=== PATIENT | male | born 1980 | race Caucasian/White ===

== ENCOUNTER 2017-05-16 15:25 | Emergency (ER) | payer SELFPAY ==
[~2017-05-16] VITALS: Ht 188 cm; Wt 117.0 kg
[2017-05-16 15:39] VITALS: BP 125/92; PULSE 116; RESP 16; TEMP 98.2; O2SAT 95
--- NOTE | 2017-05-16 16:01 | PD ---
HPI Chief Complaint: Injury Time Seen by Provider: 15:54 Travel History International Travel<30 days: No Contact w/Intl Traveler<30days: No Traveled to known affect area: No History of Present Illness HPI This patient complains of pain in the left buttock. Yesterday he slipped on some wet tile and landed on his buttock. He has pain when sitting. Improved when standing. Severity of symptoms is mild to moderate. PFSH Social History Alcohol Use: Yes Tobacco Use: Yes Substance Use: No Allergies-Medications (Allergen,Severity, Reaction): Coded Allergies: No Known Allergies (Verified Allergy, Unknown, 05/16/17) Reported Meds & Prescriptions Reported Meds & Active Scripts Active No Active Prescriptions or Reported Medications Review of Systems General / Constitutional: No: Fever HENT: No: Headaches Cardiovascular: No: Chest Pain or Discomfort Physical Exam Narrative GASTROINTESTINAL: Abdomen soft, non-tender, nondistended. Positive bowel sounds. No hepato-splenomegaly, or palpable masses. No guarding. SKIN: Focused skin assessment reveals no rash or ulcers. Skin is warm and dry. Palpation shows no induration or nodules. Back: No midline tenderness. He has some minor tenderness of the left buttock but no open wound or bruising Data Data Last Documented VS Vital Signs Date Time Temp Pulse Resp B/P (MAP) Pulse Ox O2 Delivery O2 Flow Rate FiO2 05/16/17 15:39 98.2 116 16 125/92 (103) 95 Orders Orders Pelvis, Ap Only (Routine) (05/16/17 ) MDM Medical Decision Making Medical Screen Exam Complete: Yes Emergency Medical Condition: Yes Medical Record Reviewed: Yes Differential Diagnosis Contusion, pelvic fracture, ligament injury Narrative Course I have reviewed the patient's electronic medical record. I ordered a pelvis x-ray and patient agreed to this. However shortly after I ordered the test he told the nurse that he had to charges cell phone and talked to his mother and he left the department AGAINST MEDICAL ADVICE If he returns later we will reevaluate him Diagnosis Primary Impression: Contusion of buttock Qualified Codes: S30.0XXA - Contusion of lower back and pelvis, initial encounter Scripts No Active Prescriptions or Reported Meds Disposition: 07 AGAINST MEDICAL ADVICE Jorge Skaggs MD May 16, 2017 16:01
== END 2017-05-16 16:40 | disposition left against medical advice (07) ==
LOC: PHEFT 15:25
DX: S30.0XXA Contusion of lower back and pelvis, initial encounter (principal); W01.0XXA Fall on same level from slipping, tripping and stumbling without subsequent striking against object, initial encounter
CPT/HCPCS: 99281

== ENCOUNTER 2017-05-16 17:26 | Emergency (ER) | payer SELFPAY ==
[~2017-05-16] VITALS: Ht 188 cm; Wt 117.6 kg
[2017-05-16 17:30] VITALS: BP 161/79; PULSE 118; RESP 18; TEMP 98; O2SAT 97
--- NOTE | 2017-05-16 18:35 | RADRPT ---
EXAM DATE/TIME: 05/16/2017 18:14 [facility] COMPARISON: No previous studies available for comparison. INDICATIONS : Trauma, fall. MEDICAL HISTORY : None. SURGICAL HISTORY : None. ENCOUNTER: Initial ACUITY: 2 days PAIN SCORE: 5/10 LOCATION: Left buttock FINDINGS: A single frontal view of the pelvis demonstrates no evidence of fracture. The bony pelvic ring is in tact. Bony mineralization is normal. The soft tissues are intact. CONCLUSION: No acute disease. Lucio Gonzalez MD on May 16, 2017 at 18:33 Board Certified Radiologist. This report was verified electronically.
--- NOTE | 2017-05-16 18:46 | PD ---
HPI Chief Complaint: Injury Time Seen by Provider: 18:26 Travel History International Travel<30 days: No Contact w/Intl Traveler<30days: No Traveled to known affect area: No History of Present Illness HPI 37-year-old male presents to the emergency room for evaluation of left buttock pain and swelling after slip and fall last night. Patient slipped on wet tile floor and fell directly on his left buttock. No other injuries. States he had no pain at that time because of adrenaline but as adrenaline wore off, his pain increased. Pain is localized to the left buttocks and worse with any palpation. States he feels better when he is standing up. Denies loss of range of motion or paresthesias of the left lower extremity. He has not taken anything for his symptoms. [facility] Social History Alcohol Use: Yes Tobacco Use: Yes Substance Use: No Allergies-Medications (Allergen,Severity, Reaction): Coded Allergies: No Known Allergies (Verified Allergy, Unknown, 05/16/17) Reported Meds & Prescriptions Reported Meds & Active Scripts Active No Active Prescriptions or Reported Medications Review of Systems Except as stated in HPI: all other systems reviewed are Neg Physical Exam Narrative GENERAL: Well-nourished, well-developed male in no acute distress. Afebrile. Ambulatory. SKIN: Focused skin assessment warm/dry. No obvious ecchymosis. HEAD: Normocephalic. EYES: No scleral icterus. No injection or drainage. NECK: Supple, trachea midline. No JVD or lymphadenopathy. CARDIOVASCULAR: Regular rate and rhythm without murmurs, gallops, or rubs. RESPIRATORY: Breath sounds equal bilaterally. No accessory muscle use. MUSCULOSKELETAL: No cyanosis. Mild to moderate edema of the left buttock as compared to right. Data Data Last Documented VS Vital Signs Date Time Temp Pulse Resp B/P (MAP) Pulse Ox O2 Delivery O2 Flow Rate FiO2 05/16/17 17:30 98.0 118 18 161/79 (106) 97 Room Air Orders Orders Pelvis, Ap Only (Routine) (05/16/17 ) MDM Medical Decision Making Medical Screen Exam Complete: Yes Emergency Medical Condition: Yes Medical Record Reviewed: Yes Differential Diagnosis Contusion, soft tissue injury, fracture Narrative Course 37-year-old male presents to the emergency room for evaluation of left buttock pain and swelling after slip and fall last night. Patient slipped on wet tile floor and landed on his buttock. Denies any other injuries. Physical exam reveals moderate edema of the left buttock. X-ray of the pelvis is negative. Patient is ambulatory. He was discharged with orthopedic instructions and told to follow-up the primary care physician. He understands and agrees to plan. Diagnosis Primary Impression: Contusion, buttock Qualified Codes: S30.0XXA - Contusion of lower back and pelvis, initial encounter Referrals: Primary Care Physician Additional Instructions: Rest and drink plenty of fluids. Take ibuprofen with food as directed, as needed for pain. Apply ice to the affected area for 20 minutes at a time, as needed for pain and swelling. Follow-up with a primary care physician. Return to the emergency room for worsening symptoms. Scripts No Active Prescriptions or Reported Meds Disposition: 01 DISCHARGE HOME Condition: Stable Ashley Guerrier May 16, 2017 18:46
[2017-05-16 18:58] VITALS: PULSE 108; RESP 20
== END 2017-05-16 19:05 | disposition home or self-care (01) ==
LOC: PHED 17:26 → PHEFT 19:05
DX: S30.0XXA Contusion of lower back and pelvis, initial encounter (principal); W01.0XXA Fall on same level from slipping, tripping and stumbling without subsequent striking against object, initial encounter
CPT/HCPCS: 72170; 99283

== ENCOUNTER 2017-11-11 15:23 | Inpatient (IN) | payer SELFPAY ==
[~2017-11-11] VITALS: Ht 188 cm; Wt 109.4 kg
[2017-11-11 15:29] VITALS: BP 150/86; PULSE 107; RESP 18; TEMP 98.1; O2SAT 98
[2017-11-11] MEDS ORDERED: SODIUM CHLORIDE 0.9% FLUSH 10 ML FLUSH IV FLUSH PRN ×2 (16:00→19:00)
[2017-11-11 16:04] VITALS: O2SAT 96
[2017-11-11 16:19] LABS: AUTOMATED NEUTROPHIL # 12.9 TH/MM3 (1.8-7.7); BASOPHIL # 0.3 TH/MM3 (0-0.2); BASOPHIL % 1.7 % (0.0-2.0); EOSINOPHIL # 0.3 TH/MM3 (0-0.4); EOSINOPHIL % 1.7 % (0.0-4.0); HEMATOCRIT 35.2 % (39.0-51.0); HEMOGLOBIN 12.2 GM/DL (13.0-17.0); LYMPHOCYTE # 2.1 TH/MM3 (1.0-4.8); MEAN CELL VOLUME 99.7 FL (80.0-100.0); MEAN CORPUSCULAR HEMOGLOBIN 34.6 PG (27.0-34.0); MEAN CORPUSCULAR HGB CONC 34.7 % (32.0-36.0); MEAN PLATELET VOLUME 9.4 FL (7.0-11.0); MONO % 4.3 % (0.0-8.0); MONOCYTE # 0.7 TH/MM3 (0-0.9); NEUT % 79.3 % (16.0-70.0); PLATELET COUNT 240 TH/MM3 (150-450); RED BLOOD COUNT 3.53 MIL/MM3 (4.50-5.90); RED CELL DISTRIBUTION WIDTH 15.3 % (11.6-17.2); WHITE BLOOD COUNT 16.3 TH/MM3 (4.0-11.0)
[2017-11-11 16:25] LABS: GLOMERULAR FILTRATION RATE 189 ML/MIN (>89)
--- NOTE | 2017-11-11 16:25 | PD ---
HPI Chief Complaint: Jaundice Time Seen by Provider: 15:41 Travel History International Travel<30 days: No Contact w/Intl Traveler<30days: No Traveled to known affect area: No History of Present Illness HPI 37-year-old male arrives with jaundice. He was noticed by his friend to have had jaundice. This was first observed at least a few days ago. The patient reports remote history of IV drug abuse. He reports girlfriend has liver cancer and is really very jaundiced. He has no abdominal pain nausea vomiting fever or chills. He reports some weight loss around the waist in the legs and it feels as those pains are looser than normal. He also feels as though his abdomen is slightly distended although overall he has lost weight. He does report generalized pruritus. Pt reports drinking alcohol, aprox 5 times a week, at times 6 or more drinks. PFSH Past Medical History Medical History: Denies Significant Hx Tetanus Vaccination: > 5 Years Influenza Vaccination: No Past Surgical History Surgical History: No Previous Surgery Social History Alcohol Use: Yes (~3 BEERS DAILY) Tobacco Use: Yes (09/29 PPD) Substance Use: No Allergies-Medications (Allergen,Severity, Reaction): Coded Allergies: No Known Allergies (Verified , 11/11/17) Reported Meds & Prescriptions Reported Meds & Active Scripts Active No Active Prescriptions or Reported Medications Review of Systems Except as stated in HPI: all other systems reviewed are Neg General / Constitutional: No: Fever Physical Exam Narrative GENERAL: 37 yo M, WNWD, NAD, AOX3 Vital Signs Date Time Temp Pulse Resp B/P (MAP) Pulse Ox O2 Delivery O2 Flow Rate FiO2 11/11/17 16:04 96 11/11/17 15:36 Room Air 11/11/17 15:29 98.1 107 18 150/86 (107) 98 SKIN: There is generalized jaundice. There multiple angina mono of the anterior and posterior trunk. HEAD: Atraumatic. Normocephalic. EYES: Pupils equal and round. Sclera icterus is present. ENT: No nasal bleeding or discharge. Mucous membranes pink and moist. NECK: Trachea midline. No JVD. CARDIOVASCULAR: Regular rate and rhythm. RESPIRATORY: No accessory muscle use. Clear to auscultation. Breath sounds equal bilaterally. GASTROINTESTINAL: Abdomen soft. There is no focus tenderness. There is no caput medussa. MUSCULOSKELETAL: Extremities without clubbing, cyanosis, or edema. No obvious deformities. NEUROLOGICAL: Awake and alert. No obvious cranial nerve deficits. Motor grossly within normal limits. Five out of 5 muscle strength in the arms and legs. Normal speech. PSYCHIATRIC: Appropriate mood and affect; insight and judgment normal. Data Data Last Documented VS Vital Signs Date Time Temp Pulse Resp B/P (MAP) Pulse Ox O2 Delivery O2 Flow Rate FiO2 11/11/17 18:05 84 19 111/69 (83) 97 Room Air 11/11/17 15:29 98.1 VS reviewed Orders Orders Complete Blood Count With Diff (11/11/17 15:56) Comprehensive Metabolic Panel (11/11/17 15:56) Lipase (11/11/17 15:56) Ct Abd/Pel W Iv Contrast(Rout) (11/11/17 15:56) Iv Access Insert/Monitor (11/11/17 15:56) Ecg Monitoring (11/11/17 15:56) Oximetry (11/11/17 15:56) Sodium Chloride 0.9% Flush (Ns Flush) (11/11/17 16:00) Iohexol 350 Inj (Omnipaque 350 Inj) (11/11/17 17:26) Admit Order (Ed Use Only) (11/11/17 ) Vital Signs (Adult) Q4H (11/11/17 18:21) Diet Npo (11/11/17 Dinner) Activity Bed Rest (11/11/17 18:21) Notify Dr: Other (11/11/17 18:21) Labs Laboratory Tests Test 11/11/17 16:00 White Blood Count 16.3 TH/MM3 Red Blood Count 3.53 MIL/MM3 Hemoglobin 12.2 GM/DL Hematocrit 35.2 % Mean Corpuscular Volume 99.7 FL Mean Corpuscular Hemoglobin 34.6 PG Mean Corpuscular Hemoglobin Concent 34.7 % Red Cell Distribution Width 15.3 % Platelet Count 240 TH/MM3 Mean Platelet Volume 9.4 FL Neutrophils (%) (Auto) 79.3 % Lymphocytes (%) (Auto) 13.0 % Monocytes (%) (Auto) 4.3 % Eosinophils (%) (Auto) 1.7 % Basophils (%) (Auto) 1.7 % Neutrophils # (Auto) 12.9 TH/MM3 Lymphocytes # (Auto) 2.1 TH/MM3 Monocytes # (Auto) 0.7 TH/MM3 Eosinophils # (Auto) 0.3 TH/MM3 Basophils # (Auto) 0.3 TH/MM3 CBC Comment AUTO DIFF Differential Comment AUTO DIFF CONFIRMED Platelet Estimate NORMAL Platelet Morphology Comment ENLARGED Target Cells 2+ Blood Urea Nitrogen 4 MG/DL Creatinine 0.49 MG/DL Random Glucose 125 MG/DL Total Protein 8.1 GM/DL Albumin 2.3 GM/DL Calcium Level 8.2 MG/DL Alkaline Phosphatase 238 U/L Aspartate Amino Transf (AST/SGOT) 84 U/L Alanine Aminotransferase (ALT/SGPT) 35 U/L Total Bilirubin 19.8 MG/DL Sodium Level 132 MEQ/L Potassium Level 2.9 MEQ/L Chloride Level 100 MEQ/L Carbon Dioxide Level 23.9 MEQ/L Anion Gap 8 MEQ/L Estimat Glomerular Filtration Rate 189 ML/MIN Lipase 441 U/L MDM Medical Decision Making Medical Screen Exam Complete: Yes Emergency Medical Condition: Yes Medical Record Reviewed: Yes Differential Diagnosis Constipation, Gastritis, Acute Cholecystitis, Biliary Colic, Pancreatitis, DUGAN , Hepatitis, Bowel Obstruction, Cystitis, Mesenteric Ischemia, AAA, Appendicitis , Renal Stone/Hydronephrosis, GERD, perforated viscous Narrative Course CBC & BMP Diagram 11/11/17 16:00 Total Protein 8.1, Albumin 2.3 L, Calcium Level 8.2 L, Alkaline Phosphatase 238 H, Aspartate Amino Transf (AST/SGOT) 84 H, Alanine Aminotransferase (ALT/SGPT) 35, Total Bilirubin 19.8 H Last Impressions Abdomen/Pelvis CT 11/11/17 1556 Signed Impressions: Service Date/Time: Saturday, November 11, 2017 17:19 - CONCLUSION: 1. Very abnormal appearance of the liver. The organ is diffusely enlarged and somewhat heterogeneous with what appears to be multiple mass lesions. The largest lesion is identified medially in the right hepatic lobe measuring 4.8 cm in diameter. MRI with and without contrast could be performed for further characterization. 2. In addition, there are findings of portal hypertension with a spontaneous portosystemic shunt from the splenic vein to the IVC. In combination with multiple prominent lymph nodes juxtaposed between the iron hepatis and pancreas, findings are concerning for hepatocellular carcinoma with metastasis. 3. The gallbladder lumen is decompressed the gallbladder wall is markedly thickened. Again, nonspecific and can be seen in severe hepatic failure. 4. Mild ascites. Reginaldo Wilson MD Case discussed with Dr. Hunter who will admit the patient. The patient will be admitted for further diagnostic evaluation of hyperbilirubinemia and liver masses. Diagnosis Primary Impression: Liver masses Additional Impression: Hyperbilirubinemia Admitting Information Admitting Physician Requests: Admit Scripts No Active Prescriptions or Reported Meds Julian Rodríguez MD Nov 11, 2017 16:25
[2017-11-11 16:29] LABS: ALBUMIN 2.3 GM/DL (3.4-5.0); ALKALINE PHOSPHATASE 238 U/L (45-117); ALT (GPT) 35 U/L (12-78); AST (GOT) 84 U/L (15-37); BICARBONATE 23.9 MEQ/L (21.0-32.0); BLOOD UREA NITROGEN 4 MG/DL (7-18); CALCIUM 8.2 MG/DL (8.5-10.1); CHLORIDE 100 MEQ/L (98-107); CREATININE 0.49 MG/DL (0.60-1.30); GLUCOSE,RANDOM 125 MG/DL (74-106); SODIUM (NA) 132 MEQ/L (136-145); TOTAL BILIRUBIN ADULT 19.8 MG/DL (0.2-1.0); TOTAL PROTEIN 8.1 GM/DL (6.4-8.2)
[2017-11-11 17:01] LABS: TARGET CELLS 2+ (NORMAL)
[2017-11-11] MEDS ORDERED: IOHEXOL 350 MG/ML 10 ML VIAL (for RAD DIAG) IVCONTRAST ONE (17:26)
[2017-11-11 17:32] VITALS: BP 131/75; PULSE 88; RESP 16; O2SAT 98
--- NOTE | 2017-11-11 18:04 | RADRPT ---
EXAM DATE/TIME: 11/11/2017 17:19 [facility] COMPARISON: No previous studies available for comparison. INDICATIONS : Jaundice. IV CONTRAST: 85 cc Omnipaque 350 (iohexol) IV ORAL CONTRAST: No oral contrast ingested. RADIATION DOSE: 19.97 CTDIvol (mGy) MEDICAL HISTORY : None SURGICAL HISTORY : None. ENCOUNTER: Initial ACUITY: 2 weeks PAIN SCALE: 0/10 LOCATION: Abdomen. TECHNIQUE: Volumetric scanning of the abdomen and pelvis was performed. Using automated exposure control and ad justment of the mA and/or kV according to patient size, radiation dose was kept as low as reasonably achievable to obtain optimal diagnostic quality images. DICOM format image data is available electro nically for review and comparison. FINDINGS: LOWER LUNGS: The visualized lower lungs are clear. LIVER: Markedly abnormal appearance of the liver. The organ is enlarged and heterogeneous. There are multipl e faint mass lesions identified within the liver parenchyma, the largest is seen medially in the righ t hepatic lobe measuring 4.8 cm in diameter. Additional 4 cm lesion in the quadrate lobe. CT findings of portal hypertension. Portal vein is patent there are varicosities emanating from the splenic vein and communicating with the IVC consistent with a spontaneous portosystemic shunt. Gallbladder wall i s markedly thickened. The gallbladder is decompressed, however. SPLEEN: Normal size without lesion. PANCREAS: Within normal limits. KIDNEYS: Normal in size and shape. There is no mass, stone or hydronephrosis. ADRENAL GLANDS: Within normal limits. VASCULAR: There is no aortic aneurysm. BOWEL/MESENTERY: Stranding in the mesentery is nonspecific and probably represents edema. There are borderline promine nt lymph nodes in the iron hepatis. Ascites most prominent around the hepatic convexity the tracts t he right paracolic gutter down into the pelvis. ABDOMINAL WALL: Within normal limits. RETROPERITONEUM: There is no lymphadenopathy. BLADDER: No wall thickening or mass. REPRODUCTIVE: Within normal limits. INGUINAL: There is no lymphadenopathy or hernia. MUSCULOSKELETAL: Within normal limits for patient age. CONCLUSION: 1. Very abnormal appearance of the liver. The organ is diffusely enlarged and somewhat heterogeneous with what appears to be multiple mass lesions. The largest lesion is identified medially in the right hepatic lobe measuring 4.8 cm in diameter. MRI with and without contrast could be performed for furt her characterization. 2. In addition, there are findings of portal hypertension with a spontaneous portosystemic shunt from the splenic vein to the IVC. In combination with multiple prominent lymph nodes juxtaposed between t he iron hepatis and pancreas, findings are concerning for hepatocellular carcinoma with metastasis. 3. The gallbladder lumen is decompressed the gallbladder wall is markedly thickened. Again, nonspecif ic and can be seen in severe hepatic failure. 4. Mild ascites. Reginaldo Wilson MD on November 11, 2017 at 17:43 Board Certified Radiologist. This report was verified electronically.
[2017-11-11 18:05] VITALS: BP 111/69; PULSE 84; RESP 19; O2SAT 97
[2017-11-11] MEDS ORDERED: NALOXONE HCL 0.4 MG/ML AMP IV PUSH PRN (19:00)
[2017-11-11] MEDS: SODIUM CHLORIDE 0.9% FLUSH 10 ML FLUSH IV FLUSH SCH (21:14)
[2017-11-11 22:00] VITALS: BP 128/67; PULSE 88; RESP 20; TEMP 98.9; O2SAT 99
[2017-11-12] VITALS: BP 136/78; PULSE 99; RESP 20; TEMP 97.7; O2SAT 97
[2017-11-12 07:13] LABS: AUTOMATED NEUTROPHIL # 10.1 TH/MM3 (1.8-7.7); BASOPHIL # 0.3 TH/MM3 (0-0.2); BASOPHIL % 2.2 % (0.0-2.0); EOSINOPHIL # 0.4 TH/MM3 (0-0.4); EOSINOPHIL % 2.6 % (0.0-4.0); HEMATOCRIT 35.2 % (39.0-51.0); HEMOGLOBIN 12.2 GM/DL (13.0-17.0); LYMPH % 19.6 % (9.0-44.0); LYMPHOCYTE # 2.9 TH/MM3 (1.0-4.8); MEAN CELL VOLUME 100.8 FL (80.0-100.0); MEAN CORPUSCULAR HGB CONC 34.7 % (32.0-36.0); MEAN PLATELET VOLUME 9.7 FL (7.0-11.0); MONO % 7.1 % (0.0-8.0); NEUT % 68.5 % (16.0-70.0); PLATELET COUNT 210 TH/MM3 (150-450); RED BLOOD COUNT 3.49 MIL/MM3 (4.50-5.90); RED CELL DISTRIBUTION WIDTH 15.4 % (11.6-17.2); WHITE BLOOD COUNT 14.7 TH/MM3 (4.0-11.0)
[2017-11-12 07:18] LABS: CHLORIDE 100 MEQ/L (98-107); SODIUM (NA) 133 MEQ/L (136-145)
[2017-11-12 07:25] LABS: CALCIUM 8.1 MG/DL (8.5-10.1)
[2017-11-12 07:26] LABS: ALBUMIN 2.2 GM/DL (3.4-5.0); BICARBONATE 25.6 MEQ/L (21.0-32.0)
[2017-11-12 07:27] LABS: GLUCOSE,RANDOM 95 MG/DL (74-106)
[2017-11-12 07:29] LABS: ALT (GPT) 32 U/L (12-78); AST (GOT) 79 U/L (15-37); CREATININE 0.51 MG/DL (0.60-1.30); GLOMERULAR FILTRATION RATE 181 ML/MIN (>89)
[2017-11-12 07:31] LABS: TOTAL PROTEIN 7.5 GM/DL (6.4-8.2)
[2017-11-12 07:32] LABS: ALKALINE PHOSPHATASE 210 U/L (45-117)
[2017-11-12 07:51] LABS: BLOOD UREA NITROGEN 4 MG/DL (7-18)
[2017-11-12 08:17] LABS: ROULEAUX PRESENT (NORMAL)
[2017-11-12] MEDS: SODIUM CHLORIDE 0.9% FLUSH 10 ML FLUSH IV FLUSH SCH ×2 (09:20→19:53)
[2017-11-12 09:33] VITALS: BP 102/55; PULSE 86; RESP 16; TEMP 97.5; O2SAT 97
[2017-11-12] MEDS ORDERED: GADODIAMIDE PF 287 MG/ML 20 ML VIAL (for RAD MRI) IVCONTRAST ONE (14:29)
--- NOTE | 2017-11-12 14:44 | HHI.HP ---
History of Present Illness Service [facility] Primary Care Physician Jose Hunter, DO Admission Diagnosis Liver Masses; Hyperbilirubinemia Diagnoses: History of Present Illness 37-year-old male arrives with jaundice. He was noticed by his friend to have had jaundice. This was first observed at least a few days ago. The patient reports remote history of IV drug abuse. He reports girlfriend has liver cancer and is really very jaundiced. He has no abdominal pain nausea vomiting fever or chills. He reports some weight loss around the waist in the legs and it feels as those pains are looser than normal. He also feels as though his abdomen is slightly distended although overall he has lost weight. He does report generalized pruritus. Pt reports drinking alcohol, aprox 5 times a week, at times 6 or more drinks. Review of Systems Constitutional: COMPLAINS OF: Weight loss Endocrine: DENIES: Heat/cold intolerance, Polydipsia, Polyuria, Polyphagia Eyes: DENIES: Blurred vision, Diplopia, Eye inflammation, Eye pain, Vision loss , Photosensitivity, Double Vision Ears, nose, mouth, throat: DENIES: Tinnitus, Hearing loss, Vertigo, Nasal discharge, Oral lesions, Throat pain, Hoarseness, Ear Pain, Running Nose, Epistaxis, Sinus Pain, Toothache, Odynophagia Respiratory: DENIES: Apneas, Cough, Snoring, Wheezing, Hemoptysis, Sputum production, Shortness of breath Cardiovascular: DENIES: Chest pain, Palpitations, Syncope, Dyspnea on Exertion , PND, Lower Extremity Edema, Orthopnea, Claudication Gastrointestinal: COMPLAINS OF: Abdominal pain, Anorexia Genitourinary: DENIES: Sexual dysfunction, Urinary frequency, Urinary incontinence, Urgency, Hematuria, Dysuria, Nocturia, Penile Discharge, Testicular Pain, Testicular Swelling Musculoskeletal: COMPLAINS OF: Muscle aches Integumentary: COMPLAINS OF: Abnormal pigmentation, Pruritus Hematologic/lymphatic: DENIES: Bruising, Lymphadenopathy Immunologic/allergic: COMPLAINS OF: Urticaria Neurologic: COMPLAINS OF: Tremor Psychiatric: DENIES: Anxiety, Confusion, Mood changes, Depression, Hallucinations, Agitation, Suicidal Ideation, Homicidal Ideation, Delusions Past Family Social History Allergies: Coded Allergies: No Known Allergies (Verified , 11/11/17) Past Medical History Denies other medical problems Past Surgical History Denies surgical procedures Reported Medications Current Medications Medications (Trade) Dose Ordered Sig/Virgil Route Start Time Stop Time Status Last Admin (NS Flush) 2 ml UNSCH PRN IV FLUSH 11/11/17 19:00 (NS Flush) 2 ml BID IV FLUSH 11/11/17 21:00 11/12/17 09:20 (Narcan Inj) 0.4 mg UNSCH PRN IV PUSH 11/11/17 19:00 Family History Denies FH medical problems stating parents are A&W Social History Active drinker 5-6 per day and smokes 1/4 PPD cigs. Resides with friend. Physical Exam Vital Signs Vital Signs Date Time Temp Pulse Resp B/P (MAP) Pulse Ox O2 Delivery O2 Flow Rate FiO2 11/12/17 09:33 97.5 86 16 102/55 (71) 97 11/12/17 00:00 97.7 99 20 136/78 (97) 97 11/11/17 22:00 98.9 88 20 128/67 (87) 99 11/11/17 21:35 11/11/17 18:51 Room Air 11/11/17 18:05 84 19 111/69 (83) 97 Room Air 11/11/17 17:32 88 16 131/75 (93) 98 Room Air 11/11/17 16:04 96 11/11/17 15:36 Room Air 11/11/17 15:29 98.1 107 18 150/86 (107) 98 Physical Exam GENERAL: This is a well-nourished, well-developed patient, in no apparent distress. SKIN: Jaundiced. Cool and dry. HEAD: Atraumatic. Normocephalic. No temporal or scalp tenderness. EYES: Icteric. Pupils equal round and reactive. Extraocular motions intact. No injection or drainage. ENT: Nose without bleeding, purulent drainage or septal hematoma. Throat without erythema, tonsillar hypertrophy or exudate. Uvula midline. Airway patent. NECK: Trachea midline. No JVD or lymphadenopathy. Supple, nontender, no meningeal signs. CARDIOVASCULAR: Regular rate and rhythm without murmurs, gallops, or rubs. RESPIRATORY: Clear to auscultation. Breath sounds equal bilaterally. No wheezes , rales, or rhonchi. GASTROINTESTINAL: Abdomen soft, non-tender, nondistended. Positive hepatomegaly. MUSCULOSKELETAL: Extremities without clubbing, cyanosis, or edema. No joint tenderness, effusion, or edema noted. No calf tenderness. Negative Homans sign bilaterally. NEUROLOGICAL: Awake and alert. Cranial nerves II through XII intact. Motor and sensory grossly within normal limits. Five out of 5 muscle strength in all muscle groups. Normal speech. Laboratory Laboratory Tests Test 11/11/17 16:00 11/12/17 06:15 11/12/17 11:00 White Blood Count 16.3 14.7 Red Blood Count 3.53 3.49 Hemoglobin 12.2 12.2 Hematocrit 35.2 35.2 Mean Corpuscular Volume 99.7 100.8 Mean Corpuscular Hemoglobin 34.6 35.0 Mean Corpuscular Hemoglobin Concent 34.7 34.7 Red Cell Distribution Width 15.3 15.4 Platelet Count 240 210 Mean Platelet Volume 9.4 9.7 Neutrophils (%) (Auto) 79.3 68.5 Lymphocytes (%) (Auto) 13.0 19.6 Monocytes (%) (Auto) 4.3 7.1 Eosinophils (%) (Auto) 1.7 2.6 Basophils (%) (Auto) 1.7 2.2 Neutrophils # (Auto) 12.9 10.1 Lymphocytes # (Auto) 2.1 2.9 Monocytes # (Auto) 0.7 1.0 Eosinophils # (Auto) 0.3 0.4 Basophils # (Auto) 0.3 0.3 CBC Comment AUTO DIFF AUTO DIFF Differential Comment AUTO DIFF CONFIRMED AUTO DIFF CONFIRMED Platelet Estimate NORMAL NORMAL Platelet Morphology Comment ENLARGED NORMAL Target Cells 2+ Blood Urea Nitrogen 4 4 Creatinine 0.49 0.51 Random Glucose 125 95 Total Protein 8.1 7.5 Albumin 2.3 2.2 Calcium Level 8.2 8.1 Alkaline Phosphatase 238 210 Aspartate Amino Transf (AST/SGOT) 84 79 Alanine Aminotransferase (ALT/SGPT) 35 32 Total Bilirubin 19.8 19.0 Sodium Level 132 133 Potassium Level 2.9 3.0 Chloride Level 100 100 Carbon Dioxide Level 23.9 25.6 Anion Gap 8 7 Estimat Glomerular Filtration Rate 189 181 Lipase 441 Basophilic Stippling FAINT Rouleau PRESENT Red Cell Morphology Comment NORMAL Result Diagram: 11/12/17 0615 11/12/17 0615 Imaging Last Impressions Abdomen/Pelvis CT 11/11/17 4239 Signed Impressions: Service Date/Time: Saturday, November 11, 2017 17:19 - CONCLUSION: 1. Very abnormal appearance of the liver. The organ is diffusely enlarged and somewhat heterogeneous with what appears to be multiple mass lesions. The largest lesion is identified medially in the right hepatic lobe measuring 4.8 cm in diameter. MRI with and without contrast could be performed for further characterization. 2. In addition, there are findings of portal hypertension with a spontaneous portosystemic shunt from the splenic vein to the IVC. In combination with multiple prominent lymph nodes juxtaposed between the iron hepatis and pancreas, findings are concerning for hepatocellular carcinoma with metastasis. 3. The gallbladder lumen is decompressed the gallbladder wall is markedly thickened. Again, nonspecific and can be seen in severe hepatic failure. 4. Mild ascites. Reginaldo Wilson MD Course Adm with jaundice. GI W/U in progress. Caprini VTE Risk Assessment Caprini VTE Risk Assessment: No/Low Risk (score <= 1) Caprini Risk Assessment Model Point Value = 1 Point Value = 2 Point Value = 3 Point Value = 5 Age 41-60 Minor surgery BMI > 25 kg/m2 Swollen legs Varicose veins or History of unexplained or recurrent spontaneous Oral contraceptives or hormone replacement Sepsis (< 1 month) Serious lung disease, including pneumonia (< 1 month) Abnormal pulmonary function Acute myocardial infarction Congestive heart failure (< 1 month) History of inflammatory bowel disease Medical patient at bed rest Age 61-74 Arthroscopic surgery Major open surgery (> 45 min) Laparoscopic surgery (> 45 min) Malignancy Confined to bed (> 72 hours) Immobilizing plaster cast Central venous access Age >= 75 History of VTE Family history of VTE Factor V Leiden Prothrombin [id number] Lupus anticoagulant Anticardiolipin antibodies Elevated serum homocysteine Heparin-induced thrombocytopenia Other congenital or acquired thrombophilia Stroke (< 1 month) Elective arthroplasty Hip, pelvis, or leg fracture Acute spinal cord injury (< 1 month) Prophylaxis Regimen Total Risk Factor Score Risk Level Prophylaxis Regimen 0-1 Low Early ambulation 2 Moderate Order ONE of the following: *Sequential Compression Device (SCD) *Heparin 5000 units SQ BID 3-4 Higher Order ONE of the following medications: *Heparin 5000 units SQ TID *Enoxaparin/Lovenox 40 mg SQ daily (WT < 150 kg, CrCl > 30 mL/min) *Enoxaparin/Lovenox 30 mg SQ daily (WT < 150 kg, CrCl > 10-29 mL/min) *Enoxaparin/Lovenox 30 mg SQ BID (WT < 150 kg, CrCl > 30 mL/min) AND/OR *Sequential Compression Device (SCD) 5 or more Highest Order ONE of the following medications: *Heparin 5000 units SQ TID (Preferred with Epidurals) *Enoxaparin/Lovenox 40 mg SQ daily (WT < 150 kg, CrCl > 30 mL/min) *Enoxaparin/Lovenox 30 mg SQ daily (WT < 150 kg, CrCl > 10-29 mL/min) *Enoxaparin/Lovenox 30 mg SQ BID (WT < 150 kg, CrCl > 30 mL/min) AND *Sequential Compression Device (SCD) Assessment and Plan Problem List: (1) Portal hypertension ICD Codes: K76.6 - Portal hypertension Status: Acute Plan: F/U GI recommendations and eval (2) Portosystemic shunt, spontaneous ICD Codes: I99.8 - Other disorder of circulatory system Status: Acute Plan: F/U GI W/U (3) Hyperbilirubinemia ICD Codes: E80.6 - Other disorders of bilirubin metabolism Status: Acute Plan: GI W/U in progress (4) Liver masses ICD Codes: R16.0 - Hepatomegaly, not elsewhere classified Status: Acute Plan: F/U GI W/U Discussed Condition With Patient Discharge Planning Home when cleared by Colt Gaxiola Nov 12, 2017 14:44
[2017-11-12 15:11] LABS: IRON (FE) 74 MCG/DL (65-175)
[2017-11-12 15:14] LABS: FERRITIN 708 NG/ML (26-388)
--- NOTE | 2017-11-12 15:16 | MB ---
cc: SUDEEP NOGUEIRA M.D. DATE OF CONSULTATION: 11/12/2017. REASON FOR CONSULTATION: Elevation of liver enzymes. Abnormal CT. REFERRING PHYSICIAN: Dr. Hunter. HISTORY OF PRESENT ILLNESS: Mr. العلي is a 37-year-old gentleman who to the emergency room for evaluation of increased jaundice. The patient stated he observed this a few days ago and it got progressively worse. This prompted his referral to the emergency room. The patient reports some weight loss. He stated that he lost approximately 90 pounds for the last years and he intended to do so. He is a heavy drinker. There is no history of hepatitis A, B or C. He denies any fever or chills, melena, hematemesis, hematochezia. He denies any dysphagia or odynophagia. He denies any family history of liver issues. He states he has never had blood work so he is unaware of any abnormalities of liver enzymes in the past. He does have a chronic rash on his legs. He states he had seen a school boat driver for that and was given a cream which sounds like a steroid cream with improvement but he recently stopped taking it. He states that the rash is mostly because he is scratching his legs mostly at nighttime due to increased itching and this has been going on for many years. No other medical problems. PAST MEDICAL HISTORY: None. PAST SURGICAL HISTORY: None. SOCIAL HISTORY: He drinks heavily for many years. He smokes one-fourth of a pack per day. ALLERGIES: NO KNOWN ALLERGIES. MEDICATIONS AT HOME: None. MEDICATIONS IN THE HOSPITAL: 1. In the hospital, he was given Narcan. 2. IV fluids. REVIEW OF SYSTEMS: CONSTITUTIONAL: He denies any fever or chills, weight loss or weight gain in the recent past but over the years as I mentioned he has lost 90 pounds slowly. HEAD, EYES, EARS, NOSE, THROAT: No alteration in baseline hearing or visual acuity. PULMONARY: Denies any chest pain or shortness of breath. GASTROINTESTINAL: As above. GENITOURINARY: Denies any dysuria or hematuria. He did notice darkening of his urine lately. COACH TOUR DRIVER: No history or TIA or CVA kind of symptoms. SKIN: As above. PHYSICAL EXAMINATION: GENERAL: On clinical examination, he is sitting in bed in no acute distress. Jaundiced. HEAD, EYES, EARS, NOSE, THROAT: Pupils equal, round and reactive to light and accommodation. Jaundiced. NECK: No jugular venous distention. No lymphadenopathy. CHEST: The lungs are clear to auscultation and palpation. CARDIOVASCULAR: S1 and S2 no murmur. ABDOMEN: Obese, distended, hepatomegaly, indurated liver margins. EXTREMITIES: No pedal edema. SKIN: Rashes on both legs and the lower extremities. COACH TOUR DRIVER: Awake, alert and oriented times three. No focal signs identified. No flapping tremor. LABORATORY STUDIES: His hemoglobin is 12.2, white count 14.7, MCV 100.8, platelet count 210,000. His chemistry is suggestive of glucose of 125, total bilirubin 19.8, AST 84, alkaline phosphatase 238, albumin 2.3, lipase 448. IMAGING STUDIES: The patient also had a CT of the abdomen and pelvis which showed very abnormal appearance of the liver. The organ is diffusely enlarged and somewhat heterogeneous with multiple mass lesions. The large lesion is in the right lobe measuring 4.8 cm. In addition, portal hypertension, multiple prominent lymph nodes between the iron hepatis and the pancreas, possible hepatocellular carcinoma with metastatic disease, gallbladder lumen decompressed with thickening of the gallbladder. Again, nonspecific and can be found in severe hepatic failure, mild ascites. IMPRESSION: 1. Mr. العلي is a 37-year-old gentleman admitted to the hospital with worsening jaundice most likely secondary to alcoholic hepatitis rule out viral hepatitis. 2. Abnormal liver CT suggesting multiple liver masses. Concern for possible hepatocellular carcinoma with metastasis. RECOMMENDATIONS: 1. MRI abdomen and pelvis. 2. Tumor markers. 3. Hepatitis profile. 4. FINA. 5. Anti-smooth muscle antibody. 6. Anti-mitochondrial antibody. 7. Alpha-1 antitrypsin. 8. Ceruloplasmin. 9. Supportive care. 10. Monitor liver function tests closely. 11. If workup is negative, we will consider CT-guided liver biopsy of one of the masses and possible oncology consultation. The patient was counseled about stopping alcohol. I would like to thank Dr. Hunter for referring him to our office for consultation. Further recommendation will depend on the patient's clinical status and the above results. Sudeep Nogueira MD BSB/ELANA /11:32 AM /3:00 PM MTDEdel
[2017-11-12 15:43] LABS: CA 19-9 14.9 U/ML (0.0-35.0)
[2017-11-12] MEDS: hydrOXYzine HCL 25 MG TAB PO PRN (16:29)
--- NOTE | 2017-11-12 16:35 | RADRPT ---
EXAM DATE/TIME: 11/12/2017 13:24 [facility] COMPARISON: CT ABDOMEN & PELVIS W CONTRAST, November 11, 2017, 17:19. INDICATIONS : Abnormal CT scan. Jaundice, ascites. CONTRAST: 20 cc Omniscan (gadodiamide) IV MEDICAL HISTORY : None. SURGICAL HISTORY : None. ENCOUNTER: Initial ACUITY: 1 day PAIN SCORE: 0/10 LOCATION: Abdomen. TECHNIQUE: Multiplanar, multisequence magnetic resonance imaging of the abdomen was performed without and with i ntravenous contrast. FINDINGS: LIVER: The liver is enlarged measuring 24.6 cm in length. There is signal loss on out of phase imaging indic ating steatosis with more severe focal steatosis and areas around the gallbladder fossa. T2-weighted imaging and diffusion imaging demonstrates no focal hyperintense mass. No arterially enhancing lesion is appreciated. However, there is very heterogeneous enhancement of the liver. The nodular areas karma cribed on recent CT demonstrate hypointensity on the portal venous phase and equilibrium phases but t his corresponds with areas of more severe focal steatosis. Portal vein is patent. BILIARY: There is no intra- or extra-hepatic biliary ductal dilatation. Gallbladder contains no stones. There is diffuse gallbladder wall edema. SPLEEN: Enlarged measuring 14.8 cm in length. PANCREAS: Within normal limits. ADRENALS: Within normal limits. KIDNEYS: Normal size and signal intensity. There is no hydronephrosis or mass. OTHER: Aorta is nonaneurysmal. There is no lymphadenopathy. There is a small volume of free fluid adjacent t o the liver. There are varices in the upper abdomen including a splenorenal shunt. CONCLUSION: 1. Hepatomegaly with steatosis and morphology suggesting cirrhosis. No definite focal liver lesion is identified. The areas described on recent CT appeared to represent asymmetric more severe focal fat deposition. Suggest a followup MRI with and without intravenous contrast to proximally 6 months to as sess for change. 2. Findings indicative of portal hypertension including splenomegaly, small volume of ascites, and sp lenorenal shunt. 3. Persistent gallbladder wall edema. Although this is a nonspecific finding I suspect it is likely r elated to the liver disease and portal hypertension. Inderjit Shields MD on November 12, 2017 at 16:22 Board Certified Radiologist. This report was verified electronically.
[2017-11-12 17:00] VITALS: BP 148/84; PULSE 89; RESP 15; TEMP 98.3; O2SAT 100
[2017-11-12] MEDS ORDERED: PHYTONADIONE 5 MG TAB PO ONE (17:00)
--- NOTE | 2017-11-12 17:50 | MB ---
cc: CHARLEEN HUNTER D.O., RUBY ANNE E. M.D. DATE OF CONSULTATION 11/12/17 [address] Hunter CHIEF COMPLAINT Dr. Hunter requests a consultation for Mr. العلي for a liver lesion associated with hyperbilirubinemia. HISTORY OF PRESENT ILLNESS Mr. العلي is a 37-year-old man with no significant past history. He states that he still feels well. He was noted to be jaundiced by his friends several weeks ago. He denies any nausea, vomiting, abdominal pain. He smokes. He drinks heavily. He denies any history of hepatitis A, B or C. He denies any bleeding. No melena or bright red blood per rectum. He denies any bruising. He complains of pruritus. He has had no weight loss. He presented to the emergency room because of the jaundice. Laboratory evaluation revealed a bilirubin of 19.8, AST 84, ALT 35, alkaline phosphatase 278. CBC is significant for mild leukocytosis and macrocytic anemia with hemoglobin of 12.2. Lipase is elevated. Imaging study in the emergency room shows a very abnormal appearing liver. There is a right hepatic lobe mass measuring 4.8 cm. There is evidence for portal hypertension and spontaneous portosystemic shunt from splenic vein to the IVC. The gallbladder lumen is decompressed and the gallbladder wall was markedly thickened. There is some mild ascites. Additional lesions are noted in the left lobe of the liver. He was seen by gastroenterology. Workup tumor marker, hepatitis profile, FINA evaluation for autoimmune hepatitis is being considered. MRI has been requested. The biliary duct was not dilated. The rest of his review of systems is negative. PAST MEDICAL HISTORY 1. Painless jaundice, alcoholic liver disease. 2. Alcohol abuse 3. Macrocytic anemia. 4. Hypoalbuminemia. PAST SURGICAL HISTORY None SOCIAL HISTORY He is a heavy drinker. He smokes a quarter pack per day. He lives alone. He names his father as the healthcare surrogate. ALLERGIES NO KNOWN DRUG ALLERGIES. MEDICATIONS Current, 1. Atarax 2. Narcan p.r.n. FAMILY HISTORY Maternal grandmother of gynecologic metastatic cancer. Both parents are alive and well. They have chronic medical problems such as hypertension. PHYSICAL EXAMINATION VITAL SIGNS: Temperature 97.5, heart rate 86, respiratory rate 18, blood pressure 102/55, saturation 97%. GENERAL: Mr. العلي is a well-developed, well-nourished 37-year-old man who looks his stated age. He is overtly jaundiced. He is heavy-set. HEENT: His pupils are round, reactive to light and accommodation. Oropharynx is clear. NECK: Supple. LUNGS: Clear. CARDIOVASCULAR: Normal rate, rhythm. ABDOMEN: Large and benign. Liver edge is palpable. Abdomen is distended. LOWER EXTREMITIES: With no edema. Good pulses. SKIN: Jaundiced. There is some telangiectatic vessels over the chest wall. He has excoriations and scabs on both arms. IMAGING STUDIES As described above. LABORATORY DATA As described above. ASSESSMENT/PLAN Mr. العلي is a 37-year-old man with no significant past history who presents with painless jaundice. His bilirubin is 9.8 with elevated liver function AST of more than ALT. He has hyponatremia and hypoalbuminemia. He has imaging study consistent with chronic liver disease and shunting. We discussed the findings of liver mass. This is suspicious for underlying malignancy. We discussed the differential to include primary hepatocellular cancer versus metastatic disease versus cholangiocarcinoma. Treatment depends on the type of malignancy. We discussed coordinating a CT-guided biopsy on Tuesday. We will check coagulation profile. Evaluation for other cause of liver disease is continued by gastroenterology. Bili comp will be performed. There are no dilated ducts. There does not seem to be a role for stenting at least on imaging. His questions were answered to his satisfaction. So far, alpha-fetoprotein and CEA are normal. CA 19-9 is normal. There are no lesions noted in the pancreas. He may follow up outpatient after the biopsy to delineate further plan of treatment. MD CESAR Moreira/ /4:02 PM /5:35 PM
[2017-11-12 18:30] VITALS: RESP 18
[2017-11-12 20:00] VITALS: BP 127/61; PULSE 88; RESP 18; TEMP 99; O2SAT 98
[2017-11-13] MEDS: hydrOXYzine HCL 25 MG TAB PO PRN ×2 (00:16→17:09)
[2017-11-13 00:43] VITALS: BP 135/76; PULSE 92; RESP 18; TEMP 99.2; O2SAT 99
[2017-11-13 07:05] LABS: INTERNATIONAL NORMALIZED RATIO 1.5 RATIO; PROTHROMBIN TIME - PATIENT 15.5 SEC (9.8-11.6)
[2017-11-13 07:17] LABS: DIRECT BILIRUBIN ADULT 17.5 MG/DL (0.0-0.2); INDIRECT BILIRUBIN 3.5 MG/DL (0.0-0.8)
[2017-11-13 08:00] VITALS: BP 130/73; PULSE 86; RESP 18; TEMP 97.1; O2SAT 97
[2017-11-13] MEDS: POTASSIUM CHLORIDE 10 MEQ CONTROLLED RELEASE TAB PO SCH ×2 (08:12→20:14)
[2017-11-13] MEDS: prednisoLONE 10 MG ODT TAB PO SCH (08:13)
[2017-11-13] MEDS: SODIUM CHLORIDE 0.9% FLUSH 10 ML FLUSH IV FLUSH SCH ×2 (08:14→20:14)
[2017-11-13 12:00] VITALS: BP 124/69; PULSE 95; RESP 16; TEMP 96; O2SAT 96
--- NOTE | 2017-11-13 14:32 | HHI.PR ---
Subjective Remarks Patient presented with jaundice and found to have a liver mass. W/U in progress. Objective Vital Signs Date Time Temp Pulse Resp B/P (MAP) Pulse Ox O2 Delivery O2 Flow Rate FiO2 11/13/17 12:00 96.0 95 16 124/69 (87) 96 11/13/17 08:00 97.1 86 18 130/73 (92) 97 11/13/17 00:43 99.2 92 18 135/76 (95) 99 11/12/17 20:00 99.0 88 18 127/61 (83) 98 11/12/17 18:30 18 11/12/17 17:00 98.3 89 15 148/84 (105) 100 I/O 11/12/17 11/12/17 11/12/17 11/13/17 11/13/17 11/13/17 07:00 15:00 23:00 07:00 15:00 23:00 Intake Total 480 ml 1200 ml 560 ml Balance 480 ml 1200 ml 560 ml Intake Oral 480 ml 1200 ml 560 ml IV Total 0 ml # Voids 1 7 2 # Bowel Movements 0 Result Diagram: 11/12/17 0615 11/12/17 0615 Imaging Last Impressions Abdomen MRI 11/12/17 0000 Signed Impressions: Service Date/Time: Sunday, November 12, 2017 13:24 - CONCLUSION: 1. Hepatomegaly with steatosis and morphology suggesting cirrhosis. No definite focal liver lesion is identified. The areas described on recent CT appeared to represent asymmetric more severe focal fat deposition. Suggest a followup MRI with and without intravenous contrast to proximally 6 months to assess for change. 2. Findings indicative of portal hypertension including splenomegaly, small volume of ascites, and splenorenal shunt. 3. Persistent gallbladder wall edema. Although this is a nonspecific finding I suspect it is likely related to the liver disease and portal hypertension. Inderjit Shields MD Abdomen/Pelvis CT 11/11/17 1556 Signed Impressions: Service Date/Time: Saturday, November 11, 2017 17:19 - CONCLUSION: 1. Very abnormal appearance of the liver. The organ is diffusely enlarged and somewhat heterogeneous with what appears to be multiple mass lesions. The largest lesion is identified medially in the right hepatic lobe measuring 4.8 cm in diameter. MRI with and without contrast could be performed for further characterization. 2. In addition, there are findings of portal hypertension with a spontaneous portosystemic shunt from the splenic vein to the IVC. In combination with multiple prominent lymph nodes juxtaposed between the iron hepatis and pancreas, findings are concerning for hepatocellular carcinoma with metastasis. 3. The gallbladder lumen is decompressed the gallbladder wall is markedly thickened. Again, nonspecific and can be seen in severe hepatic failure. 4. Mild ascites. Reginaldo Wilson MD Objective Remarks HEENT - Icteric; AT/NC; Resp - CTA; CV - RRR without Murmur; Abd hepatomegaly noted without fluid wave or tenderness to palpation; Neuro - alert and oriented without asterixis at this time. Medications and IVs Current Medications Medications (Trade) Dose Ordered Sig/Virgil Route Start Time Stop Time Status Last Admin (NS Flush) 2 ml UNSCH PRN IV FLUSH 11/11/17 19:00 (NS Flush) 2 ml BID IV FLUSH 11/11/17 21:00 11/13/17 08:14 (Narcan Inj) 0.4 mg UNSCH PRN IV PUSH 11/11/17 19:00 (Atarax) 25 mg Q8H PRN PO 11/12/17 15:00 11/13/17 00:16 (KCl) 10 meq Q12HR PO 11/13/17 09:00 11/13/17 08:12 (Orapred Odt) 40 mg DAILY PO 11/13/17 09:00 11/13/17 08:13 Assessment and Plan Problem List: (1) Portal hypertension ICD Codes: K76.6 - Portal hypertension Status: Acute Plan: F/U GI recommendations and eval (2) Portosystemic shunt, spontaneous ICD Codes: I99.8 - Other disorder of circulatory system Status: Acute Plan: F/U GI W/U (3) Hyperbilirubinemia ICD Codes: E80.6 - Other disorders of bilirubin metabolism Status: Acute Plan: GI W/U in progress (4) Liver masses ICD Codes: R16.0 - Hepatomegaly, not elsewhere classified Status: Acute Plan: F/U GI W/U Assessment and Plan Jaundice with liver mass suspicious for primary vs metastatic cancer. GI eval in progress. Discussed Condition With Patient Discharge Planning Home when cleared by Colt Gaxiola Nov 13, 2017 14:32
[2017-11-13 16:00] VITALS: BP 128/80; PULSE 114; RESP 16; TEMP 97.4; O2SAT 96
--- NOTE | 2017-11-13 18:42 | PD.ONC.PN ---
Subjective Subjective Remarks "I have cataract in the right eye." Objective Data Date Time Temp Pulse Resp B/P (MAP) Pulse Ox O2 Delivery O2 Flow Rate FiO2 11/13/17 16:00 97.4 114 16 128/80 (96) 96 11/13/17 12:00 96.0 95 16 124/69 (87) 96 11/13/17 08:00 97.1 86 18 130/73 (92) 97 11/13/17 00:43 99.2 92 18 135/76 (95) 99 11/12/17 20:00 99.0 88 18 127/61 (83) 98 11/13/17 11/13/17 11/13/17 07:00 15:00 23:00 Intake Total 560 ml 500 ml Balance 560 ml 500 ml Result Diagram: 11/12/1761411/12/17 06 Laboratory Results Laboratory Tests Test 11/13/17 06:00 Prothrombin Time 15.5 SEC Prothromb Time International Ratio 1.5 RATIO Activated Partial Thromboplast Time 29.5 SEC Fibrinogen 353 mg/dL Total Bilirubin 21.0 MG/DL Direct Bilirubin 17.5 MG/DL Indirect Bilirubin 3.5 MG/DL Lactate Dehydrogenase 131 U/L Administered Medications Medications (Trade) Dose Ordered Sig/Virgil Route PRN Reason Start Time Stop Time Status Last Admin Dose Admin Sodium Chloride (NS Flush) 2 ml BID IV FLUSH 11/11/17 21:00 11/13/17 08:14 Hydroxyzine HCl (Atarax) 25 mg Q8H PRN PO ITCHING 11/12/17 15:00 11/13/17 17:09 Potassium Chloride (KCl) 10 meq Q12HR PO 11/13/17 09:00 11/13/17 08:12 Prednisolone (Orapred Odt) 40 mg DAILY PO 11/13/17 09:00 11/13/17 08:13 Objective Remarks GENERAL: Well-nourished, well-developed patient. SKIN: Warm and dry. Generalized jaundice. HEAD: Normocephalic. EYES: No scleral icterus. No injection or drainage. NECK: Supple, trachea midline. No JVD or lymphadenopathy. LYMPHATIC: No adenopathy. CARDIOVASCULAR: Regular rate and rhythm without murmurs. RESPIRATORY: Breath sounds equal bilaterally. No accessory muscle use. GASTROINTESTINAL: Abdomen soft, non-tender, nondistended. EXTREMITIES: No cyanosis, or edema. MUSCULOSKELETAL: Adequate muscle tone. NEUROLOGICAL: No obvious focal deficit. Awake, alert, and oriented x3. PSYCHIATRIC: Appropriate mood and affect; insight and judgment normal. Assessment/Plan Problem List: (1) Hyperbilirubinemia ICD Codes: E80.6 - Other disorders of bilirubin metabolism Status: Acute Plan: Suspect alcoholic hepatitis. Noted imaging study no obstruction. History of alcohol use. (2) Liver masses ICD Codes: R16.0 - Hepatomegaly, not elsewhere classified Status: Acute Plan: Discussed MRI findings to suggest fatty liver less likely HCC. Discussed risks and benefits of biopsy, pathologic confirmation of cirrhosis/ fibrosis and absence of HCC. Pt would like to proceed with biopsy. Discussed with Dr. Delgado agree to proceed with biopsy. Carmenza Gutierrez MD Nov 13, 2017 18:42
[2017-11-13 20:00] VITALS: BP 146/96; PULSE 108; RESP 18; TEMP 97.7; O2SAT 96
[2017-11-14] VITALS: BP 142/100; PULSE 102; RESP 18; TEMP 96.6; O2SAT 98
[2017-11-14] MEDS: hydrOXYzine HCL 25 MG TAB PO PRN (00:03)
[2017-11-14 07:46] VITALS: BP 123/71; PULSE 92; RESP 20; TEMP 97.9; O2SAT 96
--- NOTE | 2017-11-14 08:12 | HHI.PR ---
Subjective Remarks Tires this am, npo for biopsy Objective Vital Signs Date Time Temp Pulse Resp B/P (MAP) Pulse Ox O2 Delivery O2 Flow Rate FiO2 11/14/17 07:46 97.9 92 20 123/71 (88) 96 11/14/17 00:00 96.6 102 18 142/100 (114) 98 11/13/17 20:00 97.7 108 18 146/96 (113) 96 11/13/17 16:00 97.4 114 16 128/80 (96) 96 11/13/17 12:00 96.0 95 16 124/69 (87) 96 I/O 11/13/17 11/13/17 11/13/17 11/14/17 11/14/17 11/14/17 07:00 15:00 23:00 07:00 15:00 23:00 Intake Total 560 ml 500 ml Balance 560 ml 500 ml Intake Oral 560 ml 500 ml # Voids 2 3 # Bowel Movements 0 0 Result Diagram: 11/12/17 0615 11/12/17 0615 Imaging Laboratory Tests Test 11/11/17 16:00 11/12/17 06:15 11/12/17 11:00 11/13/17 06:00 White Blood Count 16.3 TH/MM3 (4.0-11.0) 14.7 TH/MM3 (4.0-11.0) Red Blood Count 3.53 MIL/MM3 (4.50-5.90) 3.49 MIL/MM3 (4.50-5.90) Hemoglobin 12.2 GM/DL (13.0-17.0) 12.2 GM/DL (13.0-17.0) Hematocrit 35.2 % (39.0-51.0) 35.2 % (39.0-51.0) Mean Corpuscular Hemoglobin 34.6 PG (27.0-34.0) 35.0 PG (27.0-34.0) Neutrophils (%) (Auto) 79.3 % (16.0-70.0) Neutrophils # (Auto) 12.9 TH/MM3 (1.8-7.7) 10.1 TH/MM3 (1.8-7.7) Basophils # (Auto) 0.3 TH/MM3 (0-0.2) 0.3 TH/MM3 (0-0.2) Platelet Morphology Comment ENLARGED (NORMAL) Target Cells 2+ (NORMAL) Blood Urea Nitrogen 4 MG/DL (7-18) 4 MG/DL (7-18) Creatinine 0.49 MG/DL (0.60-1.30) 0.51 MG/DL (0.60-1.30) Random Glucose 125 MG/DL (74-106) Albumin 2.3 GM/DL (3.4-5.0) 2.2 GM/DL (3.4-5.0) Calcium Level 8.2 MG/DL (8.5-10.1) 8.1 MG/DL (8.5-10.1) Alkaline Phosphatase 238 U/L (45-117) 210 U/L (45-117) Aspartate Amino Transf (AST/SGOT) 84 U/L (15-37) 79 U/L (15-37) Total Bilirubin 19.8 MG/DL (0.2-1.0) 19.0 MG/DL (0.2-1.0) 21.0 MG/DL (0.2-1.0) Sodium Level 132 MEQ/L (136-145) 133 MEQ/L (136-145) Potassium Level 2.9 MEQ/L (3.5-5.1) 3.0 MEQ/L (3.5-5.1) Lipase 441 U/L (73-393) Mean Corpuscular Volume 100.8 FL (80.0-100.0) Basophils (%) (Auto) 2.2 % (0.0-2.0) Monocytes # (Auto) 1.0 TH/MM3 (0-0.9) Basophilic Stippling FAINT (NORMAL) Rouleau PRESENT (NORMAL) Ferritin 708 NG/ML (26-388) Prothrombin Time 15.5 SEC (9.8-11.6) Direct Bilirubin 17.5 MG/DL (0.0-0.2) Indirect Bilirubin 3.5 MG/DL (0.0-0.8) Test 11/14/17 05:22 Other Results Physical Exam GENERAL: This is a well-nourished, well-developed patient, in no apparent distress. SKIN: Jaundiced. Cool and dry. HEAD: Atraumatic. Normocephalic. No temporal or scalp tenderness. EYES: Icteric. Pupils equal round and reactive. Extraocular motions intact. No injection or drainage. ENT: Nose without bleeding, purulent drainage or septal hematoma. Throat without erythema, tonsillar hypertrophy or exudate. Uvula midline. Airway patent. NECK: Trachea midline. No JVD or lymphadenopathy. Supple, nontender, no meningeal signs. CARDIOVASCULAR: Regular rate and rhythm without murmurs, gallops, or rubs. RESPIRATORY: Clear to auscultation. Breath sounds equal bilaterally. No wheezes , rales, or rhonchi. GASTROINTESTINAL: Abdomen soft, non-tender, nondistended. Positive hepatomegaly. MUSCULOSKELETAL: Extremities without clubbing, cyanosis, or edema. No joint tenderness, effusion, or edema noted. No calf tenderness. Negative Homans sign bilaterally. NEUROLOGICAL: Awake and alert. Cranial nerves II through XII intact. speech normal Medications and IVs Current Medications Medications (Trade) Dose Ordered Sig/Virgil Route Start Time Stop Time Status Last Admin (NS Flush) 2 ml UNSCH PRN IV FLUSH 11/11/17 19:00 (NS Flush) 2 ml BID IV FLUSH 11/11/17 21:00 11/13/17 20:14 (Narcan Inj) 0.4 mg UNSCH PRN IV PUSH 11/11/17 19:00 (Atarax) 25 mg Q8H PRN PO 11/12/17 15:00 11/14/17 00:03 (KCl) 10 meq Q12HR PO 11/13/17 09:00 11/13/17 20:14 (Orapred Odt) 40 mg DAILY PO 11/13/17 09:00 11/13/17 08:13 Assessment and Plan Problem List: (1) Liver masses ICD Codes: R16.0 - Hepatomegaly, not elsewhere classified Status: Acute Plan: W/U in progress Oncology on case, NPO for Biopsy today. Assessment and Plan VSS, Patient npo today for liver biopsy. Per oncology noted cancer markers negative. Hepatitis panel pending. Discharge Planning Home when cleared by GI/ Oncology Shayy Alonzo Nov 14, 2017 08:12
[2017-11-14] MEDS: POTASSIUM CHLORIDE 10 MEQ CONTROLLED RELEASE TAB PO SCH (09:06)
[2017-11-14] MEDS: prednisoLONE 10 MG ODT TAB PO SCH (09:12)
[2017-11-14] MEDS: SODIUM CHLORIDE 0.9% FLUSH 10 ML FLUSH IV FLUSH SCH (09:13)
[2017-11-14 12:00] VITALS: BP 117/69; PULSE 99; RESP 20; TEMP 98.3; O2SAT 65; O2SAT 96
[2017-11-14 12:44] LABS: HEPATITIS A AB IGM NEGATIVE (NEGATIVE); HEPATITIS B CORE AB IGM NEGATIVE (NEGATIVE); HEPATITIS B SURFACE ANTIGEN NEGATIVE (NEGATIVE); HEPATITIS C AB IgG NEGATIVE (NEGATIVE)
[2017-11-14 15:57] LABS: ANA SCREEN NEG (NEG)
[2017-11-14 16:00] VITALS: BP 147/88; PULSE 110; RESP 20; TEMP 98.3; O2SAT 97
--- NOTE | 2017-11-14 17:40 | HHI.DS ---
Discharge Summary Admission Date Nov 11, 2017 at 18:22 Admitting Diagnosis Liver Masses; Hyperbilirubinemia CBC/BMP: 11/12/17 0615 11/12/17 0615 Significant Findings Laboratory Tests Test 11/12/17 06:15 11/12/17 11:00 11/13/17 06:00 11/14/17 09:19 White Blood Count 14.7 TH/MM3 (4.0-11.0) Red Blood Count 3.49 MIL/MM3 (4.50-5.90) Hemoglobin 12.2 GM/DL (13.0-17.0) Hematocrit 35.2 % (39.0-51.0) Mean Corpuscular Volume 100.8 FL (80.0-100.0) Mean Corpuscular Hemoglobin 35.0 PG (27.0-34.0) Basophils (%) (Auto) 2.2 % (0.0-2.0) Neutrophils # (Auto) 10.1 TH/MM3 (1.8-7.7) Monocytes # (Auto) 1.0 TH/MM3 (0-0.9) Basophils # (Auto) 0.3 TH/MM3 (0-0.2) Basophilic Stippling FAINT (NORMAL) Rouleau PRESENT (NORMAL) Blood Urea Nitrogen 4 MG/DL (7-18) Creatinine 0.51 MG/DL (0.60-1.30) Albumin 2.2 GM/DL (3.4-5.0) Calcium Level 8.1 MG/DL (8.5-10.1) Alkaline Phosphatase 210 U/L (45-117) Aspartate Amino Transf (AST/SGOT) 79 U/L (15-37) Total Bilirubin 19.0 MG/DL (0.2-1.0) 21.0 MG/DL (0.2-1.0) Sodium Level 133 MEQ/L (136-145) Potassium Level 3.0 MEQ/L (3.5-5.1) Ferritin 708 NG/ML (26-388) Prothrombin Time 15.5 SEC (9.8-11.6) Direct Bilirubin 17.5 MG/DL (0.0-0.2) Indirect Bilirubin 3.5 MG/DL (0.0-0.8) PE at Discharge GENERAL: Well-nourished, well-developed patient. SKIN: Warm and dry. HEAD: Normocephalic. EYES: scleral icterus present. No injection or drainage. NECK: Supple, trachea midline. No JVD or lymphadenopathy. CARDIOVASCULAR: Regular rate and rhythm without murmurs, gallops, or rubs. RESPIRATORY: Breath sounds equal bilaterally. No accessory muscle use. GASTROINTESTINAL: Abdomen soft, non-tender, nondistended. hepatomegally noted EXTREMITIES: No cyanosis, or edema. NEUROLOGICAL: Awake, alert, and oriented x 3. Non-focal. Hospital Course pt admitted with jaundice ct abd showed possible hepatic masses GI consulted MRI ordered which showed no discrete mass biopsy had been scheduled and is now dcd pt to dc home no alcohol or tylenol fu [place] next week Pt Condition on Discharge: Good Discharge Disposition: Discharge Home Discharge Instructions DIET: Follow Instructions for: Heart Healthy Diet Additional Diet Instructions: no alcohol or tylenol Activities you can perform: Regular-No Restrictions Medication Profile: No Active Prescriptions or Reported Meds Additional Information ok dc home fu grw next week fu gi 3 mos no alcohol no tylenol pt to take [id number] meq bid will [facility] lab on tuesday and fu in office Jose Hunter DO Nov 14, 2017 17:40
[2017-11-14] MEDS ORDERED: POTA10CA PO (18:00)
[2017-11-15 11:38] LABS: ALPHA-1-ANTITRYPSIN 251 mg/dL (100 - 190)
[2017-11-16 15:53] LABS: ENDOMYSIAL AB SCREEN ND (NEGATIVE); ENDOMYSIAL AB TITER ND (<1:5)
--- NOTE | 2017-11-17 08:42 | RADRPT ---
EXAM DATE/TIME: 11/14/2017 15:30 COMPARISON: CT ABDOMEN & PELVIS W CONTRAST, November 11, 2017, 17:19. MRI ABDOMEN W & W/O CONTRAST, November 12, 2017, 13:24. INDICATIONS : Consult for liver biopsy FINDINGS: Request was made for biopsy of a liver lesion. I have reviewed the MRI images in the CT images. Cirrh otic changes and hepatomegaly noted. There is a diffuse heterogeneity to the background liver with he patic steatosis as well. No mass appreciated that would warrant biopsy. I spoke with Dr. Wylie. CONCLUSION: No lesion for biopsy. Braden Akers Jr., MD on November 17, 2017 at 8:36 Board Certified Radiologist. This report was verified electronically.
[2017-11-17 23:53] LABS: MITOCHONDRIAL ABS 22.9 U (<=20.0)
[2017-11-18 15:52] LABS: CRYOGLOBULIN QUALITATIVE NEGATIVE (NEGATIVE)
[2017-11-18 15:52] LABS: CERULOPLASMIN 40 mg/dL (18-36)
== END 2017-11-14 18:37 | disposition home or self-care (01) | DRG 433 ==
LOC: PHED 15:23 → PHEDA 18:22 → PH3A 21:41
PROVIDERS: ADMIT Family Medicine; ATTEND Family Medicine
DX: K70.11 Alcoholic hepatitis with ascites (principal); K76.6 Portal hypertension; E87.1 Hypo-osmolality and hyponatremia; E88.09 Other disorders of plasma-protein metabolism, not elsewhere classified; E80.7 Disorder of bilirubin metabolism, unspecified; R63.4 Abnormal weight loss; F17.210 Nicotine dependence, cigarettes, uncomplicated; R21 Rash and other nonspecific skin eruption; L29.9 Pruritus, unspecified; D72.829 Elevated white blood cell count, unspecified; D53.9 Nutritional anemia, unspecified; F10.10 Alcohol abuse, uncomplicated
CPT/HCPCS: 74177; 74183; 80053; 80074; 82103; 82105; 82247; 82248; 82378; 82390; 82595; 82728; 82784; 83516; 83520; 83540; 83615; 83690; 85025; 85384; 85610; 85730; 86038; 86255; 86301; A9579; J7510; Q9967

== ENCOUNTER 2017-11-24 08:22 | Inpatient (IN) | payer OTHER ==
[2017-11-24] VITALS (8 sets, daily range): BP systolic 105–161; BP diastolic 58–86; PULSE 90–109; RESP 18–26; TEMP 97.5–98.2; O2SAT 96–100
[~2017-11-24] VITALS: Ht 188 cm; Wt 109.5 kg
[~2017-11-24 08:22] MED LIST: POTA10CA PO
[2017-11-24] MEDS ORDERED: SODIUM CHLORIDE 0.9% FLUSH 10 ML FLUSH IV FLUSH PRN ×3 (09:00→16:45)
--- NOTE | 2017-11-24 09:07 | PD ---
HPI Chief Complaint: Jaundice Time Seen by Provider: 08:39 Travel History International Travel<30 days: No Contact w/Intl Traveler<30days: No Traveled to known affect area: No History of Present Illness HPI This patient complains of abdominal cramps and fatigue and lack of energy. He was recently hospitalized and diagnosed with alcoholic liver cirrhosis. He had extensive workup including GI consultation and labs and CT and MRI imaging. He has a diffusely cirrhotic liver. He saw his primary physician Dr. Bailon 6 days ago. He says that he continues to decline. However he is still drinking alcohol. He was drinking last night. He seems to have very poor insight into his condition. He is angry at the medical establishment for not fixing him. Symptom severity is moderate to severe. No alleviating factors. Symptoms exacerbated by continued alcohol use. Duration is worsening over several weeks to months of time PFSH Past Medical History Asthma: Yes Autoimmune Disease: No Cancer: No Cardiovascular Problems: No Diabetes: No Endocrine: No Genitourinary: No Immune Disorder: No Musculoskeletal: No Neurologic: No Psychiatric: No Reproductive: No Social History Alcohol Use: Yes (~3 BEERS DAILY) Tobacco Use: Yes (09/29 PPD) Substance Use: No Allergies-Medications (Allergen,Severity, Reaction): Coded Allergies: No Known Allergies (Verified , 11/24/17) Reported Meds & Prescriptions Reported Meds & Active Scripts Active Reported Potassium Chloride ER (Potassium Chloride) 10 Meq Cap 10 Meq PO BID Review of Systems General / Constitutional: Positive: Weight Gain, No: Fever Eyes: No: Visual changes HENT: No: Headaches Cardiovascular: Positive: Edema, No: Chest Pain or Discomfort Respiratory: No: Shortness of Breath Gastrointestinal: Positive: Nausea, Diarrhea, Abdominal Pain Genitourinary: No: Dysuria Musculoskeletal: Positive: Weakness, Edema, No: Pain Skin: Positive Change in Pigmentation, No Rash Neurologic: Positive: Weakness Psychiatric: No: Depression Endocrine: No: Polydipsia Hematologic/Lymphatic: No: Easy Bruising Physical Exam Narrative GENERAL: Brightly jaundiced anasarca patient who is uncomfortable SKIN: Focused skin assessment reveals no rash and nodules. Skin is Warm and dry. Very jaundiced HEAD: Atraumatic. Normocephalic. EYES: Pupils equal and round. Positive scleral icterus. No injection or drainage. ENT: No nasal bleeding or discharge. Mucous membranes pink and moist. NECK: Trachea midline. No JVD. CARDIOVASCULAR: Regular rate and rhythm. No murmur appreciated. RESPIRATORY: No accessory muscle use. Clear to auscultation. Breath sounds equal bilaterally. GASTROINTESTINAL: Abdomen soft, non-tender, slight distention . No rebound or guarding MUSCULOSKELETAL: No obvious deformities. No clubbing. No cyanosis. Symmetric lower extremity . NEUROLOGICAL: Awake and alert. No obvious cranial nerve deficits. Motor grossly within normal limits. Normal speech. PSYCHIATRIC: Frustrated/aggravated mood and affect; insight and judgment seems poor . Data Data Last Documented VS Vital Signs Date Time Temp Pulse Resp B/P (MAP) Pulse Ox O2 Delivery O2 Flow Rate FiO2 11/24/17 11:47 104 18 142/79 (100) 97 Room Air 11/24/17 08:53 98.1 Orders Orders Complete Blood Count With Diff (11/24/17 08:58) Comprehensive Metabolic Panel (11/24/17 08:58) Prothrombin Time / Inr (Pt) (11/24/17 08:58) Act Partial Throm Time (Ptt) (11/24/17 08:58) Iv Access Insert/Monitor (11/24/17 08:58) Ecg Monitoring (11/24/17 08:58) Oximetry (11/24/17 08:58) NPO (11/24/17 08:58) Sodium Chloride 0.9% Flush (Ns Flush) (11/24/17 09:00) Alcohol (Ethanol) (11/24/17 08:58) Potassium Bicarb Eff (Effer-K Eff) (11/24/17 11:30) Oxycodone (Roxicodone) (11/24/17 11:30) Labs Laboratory Tests Test 11/24/17 09:05 White Blood Count 23.0 TH/MM3 Red Blood Count 3.67 MIL/MM3 Hemoglobin 13.3 GM/DL Hematocrit 37.2 % Mean Corpuscular Volume 101.3 FL Mean Corpuscular Hemoglobin 36.1 PG Mean Corpuscular Hemoglobin Concent 35.7 % Red Cell Distribution Width 16.6 % Platelet Count 289 TH/MM3 Mean Platelet Volume 8.8 FL Neutrophils (%) (Auto) 82.1 % Lymphocytes (%) (Auto) 7.1 % Monocytes (%) (Auto) 8.8 % Eosinophils (%) (Auto) 1.6 % Basophils (%) (Auto) 0.4 % Neutrophils # (Auto) 18.9 TH/MM3 Lymphocytes # (Auto) 1.6 TH/MM3 Monocytes # (Auto) 2.0 TH/MM3 Eosinophils # (Auto) 0.4 TH/MM3 Basophils # (Auto) 0.1 TH/MM3 CBC Comment DIFF FINAL Differential Comment Prothrombin Time 17.3 SEC Prothromb Time International Ratio 1.7 RATIO Activated Partial Thromboplast Time 30.7 SEC Blood Urea Nitrogen 11 MG/DL Creatinine 1.02 MG/DL Random Glucose 121 MG/DL Total Protein 7.1 GM/DL Albumin 1.9 GM/DL Calcium Level 8.4 MG/DL Alkaline Phosphatase 279 U/L Aspartate Amino Transf (AST/SGOT) 69 U/L Alanine Aminotransferase (ALT/SGPT) 34 U/L Total Bilirubin 24.3 MG/DL Sodium Level 132 MEQ/L Potassium Level 2.7 MEQ/L Chloride Level 98 MEQ/L Carbon Dioxide Level 20.5 MEQ/L Anion Gap 14 MEQ/L Estimat Glomerular Filtration Rate 81 ML/MIN Ethyl Alcohol Level 5 MG/DL [facility] Medical Decision Making Medical Screen Exam Complete: Yes Emergency Medical Condition: Yes Medical Record Reviewed: Yes Differential Diagnosis Cirrhosis, jaundice, pancreatitis Narrative Course I have reviewed the patient's electronic medical record. Reviewed his extensive hospitalization from [address] and MRI imaging and GI consultation 09: I evaluated the patient. Labs ordered. Will be kept n.p.o. for now. Planning on discussing with his primary physician after workup doubt repeat abdominal imaging Would be helpful or indicated given he just had CT and MRI 1030: Some labs reviewed. Bilirubin is up to 24. He is hyponatremic and hypokalemic 1115: Recheck of the patient. I placed a call to primary physician to discuss 1135: Discussed with Dr. Bailon's PA. We are going to do a 23 hour observation on telemetry. He has electrolyte abnormalities and anasarca. I have ordered some potassium replacement and given him 1 pain pill without Tylenol or aspirin. Diagnosis Primary Impression: Anasarca Additional Impressions: Liver cirrhosis, alcoholic Qualified Codes: K70.31 - Alcoholic cirrhosis of liver with ascites Hypokalemia Generalized weakness Admitting Information Admitting Physician Requests: Observation Jorge Skaggs MD Nov 24, 2017 09:07
[2017-11-24 09:24] LABS: AUTOMATED NEUTROPHIL # 18.9 TH/MM3 (1.8-7.7); BASOPHIL # 0.1 TH/MM3 (0-0.2); BASOPHIL % 0.4 % (0.0-2.0); EOSINOPHIL # 0.4 TH/MM3 (0-0.4); EOSINOPHIL % 1.6 % (0.0-4.0); HEMATOCRIT 37.2 % (39.0-51.0); HEMOGLOBIN 13.3 GM/DL (13.0-17.0); LYMPH % 7.1 % (9.0-44.0); LYMPHOCYTE # 1.6 TH/MM3 (1.0-4.8); MEAN CELL VOLUME 101.3 FL (80.0-100.0); MEAN CORPUSCULAR HEMOGLOBIN 36.1 PG (27.0-34.0); MEAN CORPUSCULAR HGB CONC 35.7 % (32.0-36.0); MEAN PLATELET VOLUME 8.8 FL (7.0-11.0); MONO % 8.8 % (0.0-8.0); NEUT % 82.1 % (16.0-70.0); PLATELET COUNT 289 TH/MM3 (150-450); RED BLOOD COUNT 3.67 MIL/MM3 (4.50-5.90); RED CELL DISTRIBUTION WIDTH 16.6 % (11.6-17.2)
[2017-11-24 09:31] LABS: INTERNATIONAL NORMALIZED RATIO 1.7 RATIO; PROTHROMBIN TIME - PATIENT 17.3 SEC (9.8-11.6)
[2017-11-24 10:00] LABS: ALBUMIN 1.9 GM/DL (3.4-5.0); ALKALINE PHOSPHATASE 279 U/L (45-117); ALT (GPT) 34 U/L (12-78); AST (GOT) 69 U/L (15-37); BICARBONATE 20.5 MEQ/L (21.0-32.0); BLOOD UREA NITROGEN 11 MG/DL (7-18); CALCIUM 8.4 MG/DL (8.5-10.1); CHLORIDE 98 MEQ/L (98-107); CREATININE 1.02 MG/DL (0.60-1.30); GLOMERULAR FILTRATION RATE 81 ML/MIN (>89); GLUCOSE,RANDOM 121 MG/DL (74-106); SODIUM (NA) 132 MEQ/L (136-145); TOTAL PROTEIN 7.1 GM/DL (6.4-8.2)
[2017-11-24 10:04] LABS: TOTAL BILIRUBIN ADULT 24.3 MG/DL (0.2-1.0)
[2017-11-24] MEDS ORDERED: POTASSIUM BICARBONATE 25 MEQ EFFERVESCENT TAB PO ONE (11:30)
[2017-11-24] MEDS ORDERED: SENNOSIDES 8.6 MG TAB PO PRN ×2 (14:00→16:45)
[2017-11-24] MEDS ORDERED: NALOXONE HCL 0.4 MG/ML AMP IV PUSH PRN ×2 (14:00→16:45)
[2017-11-24] MEDS ORDERED: LACTULOSE SYRUP 20 GM/30 ML CUP PO PRN (14:00)
[2017-11-24] MEDS ORDERED: MAGNESIUM HYDROXIDE SUSP 30 ML CUP PO PRN ×2 (14:00→16:45)
[2017-11-24] MEDS ORDERED: BISACODYL 10 MG SUPP RECTAL PRN (14:00)
[2017-11-24] MEDS: hydrOXYzine HCL 25 MG TAB PO PRN ×2 (15:37→21:47)
[2017-11-24] MEDS: ONDANSETRON ODT 4 MG TAB PO PRN (15:37)
[2017-11-24] MEDS ORDERED: LORazepam 2 MG/ML VIAL IV PUSH PRN ×8 (16:45)
[2017-11-24] MEDS ORDERED: LORazepam 1 MG TAB PO PRN ×2 (16:45)
[2017-11-24] MEDS ORDERED: FLUMAZENIL 0.5 MG/5 ML VIAL IV PUSH PRN ×2 (16:45)
[2017-11-24] MEDS ORDERED: LORazepam 2 MG TAB PO PRN ×2 (16:45)
--- NOTE | 2017-11-24 20:38 | PD.CONS ---
[facility] Service Critical Care Medicine Consult Requested By Dr. Hunter Reason for Consult management of hemodynamics Primary Care Physician Jose Hunter, DO History of Present Illness 37-year-old male with a history of alcoholic cirrhosis and end-stage liver disease who presents with worsening abdominal cramps. Per report he continues to drink alcohol. The emergency department he was found to have leukocytosis. He is admitted for workup for his abdominal pain. He is slightly somnolent and difficult to get a full history. He denies fever, chills. Denies chest pain, shortness of breath. Only symptom is abdominal pain. Denies nausea, vomiting, diarrhea, constipation. Denies bright red blood per rectum or hematemesis or dark tarry stools. Review of Systems ROS Limitations: Clinical Condition, Altered Mental Status Past Family Social History Allergies: Coded Allergies: No Known Allergies (Verified , 11/24/17) Past Medical History Asthma Alcoholic cirrhosis End-stage liver disease Past Surgical History None Reported Medications Potassium Chloride ER (Potassium Chloride) 10 Meq Cap 10 Meq PO BID Active Ordered Medications See MAR Family History Reviewed and found to be noncontributory to his acute illness Social History Drinks at least 3 beers daily, quarter pack per day smoker. Denies other drugs. Physical Exam Vital Signs Vital Signs Date Time Temp Pulse Resp B/P (MAP) Pulse Ox O2 Delivery O2 Flow Rate FiO2 11/24/17 20:36 100 Nasal Cannula 2.00 11/24/17 18:00 96 11/24/17 16:00 95 11/24/17 16:00 98.2 96 21 109/58 (75) 98 11/24/17 11:47 104 18 142/79 (100) 97 Room Air 11/24/17 08:53 98.1 109 18 138/70 (92) 96 Room Air 11/24/17 08:47 110 18 98 Room Air 11/24/17 08:28 97.5 108 20 161/86 (111) 98 Physical Exam GENERAL: Young male who appears older than stated age, lying in bed. Very noticeably jaundice HEENT: Normocephalic. Atraumatic. Pupils equal, round, reactive, conjugate. Sclerae icteric. Mucous membranes are moist NECK: Trachea is midline. There is no JVD. CHEST: Equal chest rise. Nasal cannula oxygen. CARDIOVASCULAR: Normal rate, regular rhythm. Sinus by telemetry ABDOMEN: Soft, nontender, distended. No guarding. Positive fluid wave MUSCULOSKELETAL: Pulses 2+. 1+ peripheral edema. NEUROLOGICAL: RASS -1. Follows commands. Laboratory Laboratory Tests Test 11/24/17 09:05 White Blood Count 23.0 Red Blood Count 3.67 Hemoglobin 13.3 Hematocrit 37.2 Mean Corpuscular Volume 101.3 Mean Corpuscular Hemoglobin 36.1 Mean Corpuscular Hemoglobin Concent 35.7 Red Cell Distribution Width 16.6 Platelet Count 289 Mean Platelet Volume 8.8 Neutrophils (%) (Auto) 82.1 Lymphocytes (%) (Auto) 7.1 Monocytes (%) (Auto) 8.8 Eosinophils (%) (Auto) 1.6 Basophils (%) (Auto) 0.4 Neutrophils # (Auto) 18.9 Lymphocytes # (Auto) 1.6 Monocytes # (Auto) 2.0 Eosinophils # (Auto) 0.4 Basophils # (Auto) 0.1 CBC Comment DIFF FINAL Differential Comment Prothrombin Time 17.3 Prothromb Time International Ratio 1.7 Activated Partial Thromboplast Time 30.7 Blood Urea Nitrogen 11 Creatinine 1.02 Random Glucose 121 Total Protein 7.1 Albumin 1.9 Calcium Level 8.4 Alkaline Phosphatase 279 Aspartate Amino Transf (AST/SGOT) 69 Alanine Aminotransferase (ALT/SGPT) 34 Total Bilirubin 24.3 Sodium Level 132 Potassium Level 2.7 Chloride Level 98 Carbon Dioxide Level 20.5 Anion Gap 14 Estimat Glomerular Filtration Rate 81 Ethyl Alcohol Level 5 Result Diagram: 11/24/17 0905 11/24/17 0905 Imaging Last Impressions Chest X-Ray 11/24/17 0000 Signed Impressions: Service Date/Time: November 22:30 - CONCLUSION: Left basilar streakiness consistent with atelectasis and/or mild infiltrate. Elevation of the right hemidiaphragm. Eddie Monteiro MD Abdomen/Pelvis CT 11/24/17 0000 Signed Impressions: Service Date/Time: November 22:17 - CONCLUSION: Moderate amount of ascites. Hepatomegaly. Apparent intra-abdominal varices which are stable compared to previous examination. Bibasilar atelectasis. Eddie Monteiro MD Septic Shock Reassessment Septic shock perfusion: reassessment completed Assessment and Plan Assessment and Plan Assessment: 37-year-old male with end-stage liver disease and acutely worsening of his liver function along with worsening abdominal pain. Certainly hepatic capsular pain is a large cause of liver pain in this population. However, with his leukocytosis, spontaneous pectoral peritonitis would be of high clinical concern. Agree with having interventional radiology perform diagnostic paracentesis. Will cover with antibiotics: Cefotaxime is not currently available in our pharmacy due to national shortage. Instead we will start him on Rocephin 2 g IV every 24 hours. We will watch him closely in intensive care setting. Active problems: End-stage liver disease Alcoholic cirrhosis Acute abdominal pain Possible spontaneous bacterial peritonitis Plan: Observe in ICU Daily coags, CMP to trend liver function. Trend MELD score daily. Close monitoring of urine output Rocephin 2 g IV every 24 hours IR consult for diagnostic paracentesis GI consult [place] protocol Watch for withdrawal symptoms Avoid long-acting sedatives Trend ammonia Oxycodone as needed for abdominal pain: Hydrocodone, oxycodone, Dilaudid, and fentanyl are preferred narcotic pain options as they have the best pharmacokinetic profile in end-stage liver disease. Critical care medicine will monitor along with Minesh Villela MD Nov 24, 2017 20:38
[2017-11-24] MEDS: DOCUSATE SODIUM 50 MG/SENNA 8.6 MG TAB PO SCH (20:52)
[2017-11-24] MEDS ORDERED: SODIUM CHLORIDE 0.9% FLUSH 10 ML FLUSH IV FLUSH SCH ×2 (21:00)
[2017-11-24] MEDS ORDERED: DOCUSATE SODIUM 50 MG/SENNA 8.6 MG TAB PO SCH (21:00)
--- NOTE | 2017-11-24 21:12 | HHI.HP ---
History of Present Illness Primary Care Physician Jose Hunter, DO Admission Diagnosis anasarca,hypokalemia,gen weakness,liver cirrhosis Diagnoses: History of Present Illness pt has hx of alcoholism [facility] with jaundice and alcoholic hepatitus he continues to drink in spite of multiple warnings and discussions regarding his risks Review of Systems Constitutional: COMPLAINS OF: Fatigue, Weight gain Gastrointestinal: COMPLAINS OF: Abdominal pain Past Family Social History Allergies: Coded Allergies: No Known Allergies (Verified , 11/24/17) Reported Medications Inpatient Medications Bisacodyl (Dulcolax Supp) 10 mg DAILY PRN RECTAL SEVERE CONSITIPATION; Start at 14:00 Flumazenil (Romazicon Inj) 0.2 mg Q1M PRN IV PUSH SEE LABEL COMMENTS; Start 11/24/17 at 16:45 Hydroxyzine HCl (Atarax) 25 mg Q6H PRN PO ITCHING Last administered on at 15:37; Start 11/24/17 at 15:15 Lactulose (Lactulose Liq) 30 ml DAILY PRN PO SEVERE CONSITIPATION; Start at 14:00 Lorazepam (Ativan Inj) 2 mg Q15M PRN IV PUSH CIWA > 20; Start 11/24/17 at 16:45 Lorazepam (Ativan) 2 mg Q2H PRN PO CIWA 11-14; Start 11/24/17 at 16:45 Magnesium Hydroxide (Milk Of Magnesia Liq) 30 ml Q12H PRN PO Mild constipation ; Start 11/24/17 at 16:45 Naloxone HCl (Narcan Inj) 0.4 mg UNSCH PRN IV PUSH SEE LABEL COMMENTS; Start at 16:45 Ondansetron HCl (Zofran Odt) 4 mg Q6H PRN PO NAUSEA Last administered on at 15:37; Start 11/24/17 at 15:15 Oxycodone HCl (Roxicodone) 5 mg ONCE ONCE PO Last administered on 11/24/17at 11: 48; Start 11/24/17 at 11:30; Stop 11/24/17 at 11:33; Status DC Potassium Bicarbonate (Effer-K Eff) 50 meq ONCE ONCE PO Last administered on at 11:48; Start 11/24/17 at 11:30; Stop 11/24/17 at 11:33; Status DC Senna/Docusate Sodium (Katie-Colace) 1 tab BID PO ; Start 11/24/17 at 21:00 Sennosides (Senokot) 17.2 mg Q12H PRN PO Moderate constipation; Start 11/24/17 at 16:45 Sodium Chloride (NS Flush) 2 ml BID IV FLUSH ; Start 11/24/17 at 21:00 Reported Meds & Active Scripts Active Reported Potassium Chloride ER (Potassium Chloride) 10 Meq Cap 10 Meq PO BID Active Ordered Medications alcoholism hypokalemia cirrhosis Family History non contributatory to this admission Social History heavy drinker not currently smoking Physical Exam Vital Signs Vital Signs Date Time Temp Pulse Resp B/P (MAP) Pulse Ox O2 Delivery O2 Flow Rate FiO2 11/24/17 20:36 100 Nasal Cannula 2.00 11/24/17 18:00 96 11/24/17 16:00 95 11/24/17 16:00 98.2 96 21 109/58 (75) 98 11/24/17 11:47 104 18 142/79 (100) 97 Room Air 11/24/17 08:53 98.1 109 18 138/70 (92) 96 Room Air 11/24/17 08:47 110 18 98 Room Air 11/24/17 08:28 97.5 108 20 161/86 (111) 98 Physical Exam GENERAL: This is a well-nourished, well-developed patient, in no apparent distress. SKIN: No rashes, ecchymoses or lesions. Cool and dry. HEAD: Atraumatic. Normocephalic. No temporal or scalp tenderness. EYES: Pupils equal round and reactive. Extraocular motions intact. No scleral icterus. No injection or drainage. ENT: Nose without bleeding, purulent drainage or septal hematoma. Throat without erythema, tonsillar hypertrophy or exudate. Uvula midline. Airway patent. NECK: Trachea midline. No JVD or lymphadenopathy. Supple, nontender, no meningeal signs. CARDIOVASCULAR: Regular rate and rhythm without murmurs, gallops, or rubs. RESPIRATORY: Clear to auscultation. Breath sounds equal bilaterally. No wheezes , rales, or rhonchi. GASTROINTESTINAL: Abdomen soft, non-tender, nondistended. No hepato-splenomegaly , or palpable masses. No guarding. MUSCULOSKELETAL: Extremities without clubbing, cyanosis, or edema. No joint tenderness, effusion, or edema noted. No calf tenderness. Negative Homans sign bilaterally. NEUROLOGICAL: Awake and alert. Cranial nerves II through XII intact. Motor and sensory grossly within normal limits. Five out of 5 muscle strength in all muscle groups. Normal speech. Laboratory Laboratory Tests Test 11/24/17 09:05 White Blood Count 23.0 Red Blood Count 3.67 Hemoglobin 13.3 Hematocrit 37.2 Mean Corpuscular Volume 101.3 Mean Corpuscular Hemoglobin 36.1 Mean Corpuscular Hemoglobin Concent 35.7 Red Cell Distribution Width 16.6 Platelet Count 289 Mean Platelet Volume 8.8 Neutrophils (%) (Auto) 82.1 Lymphocytes (%) (Auto) 7.1 Monocytes (%) (Auto) 8.8 Eosinophils (%) (Auto) 1.6 Basophils (%) (Auto) 0.4 Neutrophils # (Auto) 18.9 Lymphocytes # (Auto) 1.6 Monocytes # (Auto) 2.0 Eosinophils # (Auto) 0.4 Basophils # (Auto) 0.1 CBC Comment DIFF FINAL Differential Comment Prothrombin Time 17.3 Prothromb Time International Ratio 1.7 Activated Partial Thromboplast Time 30.7 Blood Urea Nitrogen 11 Creatinine 1.02 Random Glucose 121 Total Protein 7.1 Albumin 1.9 Calcium Level 8.4 Alkaline Phosphatase 279 Aspartate Amino Transf (AST/SGOT) 69 Alanine Aminotransferase (ALT/SGPT) 34 Total Bilirubin 24.3 Sodium Level 132 Potassium Level 2.7 Chloride Level 98 Carbon Dioxide Level 20.5 Anion Gap 14 Estimat Glomerular Filtration Rate 81 Ethyl Alcohol Level 5 Result Diagram: 11/24/1790411/24/17904 Caprini VTE Risk Assessment Caprini VTE Risk Assessment: No/Low Risk (score <= 1) Caprini Risk Assessment Model Point Value = 1 Point Value = 2 Point Value = 3 Point Value = 5 Age 41-60 Minor surgery BMI > 25 kg/m2 Swollen legs Varicose veins or History of unexplained or recurrent spontaneous Oral contraceptives or hormone replacement Sepsis (< 1 month) Serious lung disease, including pneumonia (< 1 month) Abnormal pulmonary function Acute myocardial infarction Congestive heart failure (< 1 month) History of inflammatory bowel disease Medical patient at bed rest Age 61-74 Arthroscopic surgery Major open surgery (> 45 min) Laparoscopic surgery (> 45 min) Malignancy Confined to bed (> 72 hours) Immobilizing plaster cast Central venous access Age >= 75 History of VTE Family history of VTE Factor V Leiden Prothrombin [id number] Lupus anticoagulant Anticardiolipin antibodies Elevated serum homocysteine Heparin-induced thrombocytopenia Other congenital or acquired thrombophilia Stroke (< 1 month) Elective arthroplasty Hip, pelvis, or leg fracture Acute spinal cord injury (< 1 month) Prophylaxis Regimen Total Risk Factor Score Risk Level Prophylaxis Regimen 0-1 Low Early ambulation 2 Moderate Order ONE of the following: *Sequential Compression Device (SCD) *Heparin 5000 units SQ BID 3-4 Higher Order ONE of the following medications: *Heparin 5000 units SQ TID *Enoxaparin/Lovenox 40 mg SQ daily (WT < 150 kg, CrCl > 30 mL/min) *Enoxaparin/Lovenox 30 mg SQ daily (WT < 150 kg, CrCl > 10-29 mL/min) *Enoxaparin/Lovenox 30 mg SQ BID (WT < 150 kg, CrCl > 30 mL/min) AND/OR *Sequential Compression Device (SCD) 5 or more Highest Order ONE of the following medications: *Heparin 5000 units SQ TID (Preferred with Epidurals) *Enoxaparin/Lovenox 40 mg SQ daily (WT < 150 kg, CrCl > 30 mL/min) *Enoxaparin/Lovenox 30 mg SQ daily (WT < 150 kg, CrCl > 10-29 mL/min) *Enoxaparin/Lovenox 30 mg SQ BID (WT < 150 kg, CrCl > 30 mL/min) AND *Sequential Compression Device (SCD) Assessment and Plan Assessment and Plan etohism ascites SBP suspected due to ascites and elevated wbc [id number] will consult GI and IR to tap ascites and culture fluid will need iv antibiotics consider cefotaximine 2gm q 8hours Discussed Condition With patient and ICU nurse suzanne will asses for infection site ua ct abd and cxr have consulted IR for peracenthesis and ascites culture he was given potassium earlier will repeat cbc and lytes now to asses potassium and wbc if wbc rising will start cefotaxime 2gms iv q 8 hours as this can produce high levels in ascites fluids Jose Hunter DO Nov 24, 2017 21:12
[2017-11-24] MEDS: SODIUM CHLORIDE 0.9% FLUSH 10 ML FLUSH IV FLUSH SCH (21:47)
[2017-11-24] MEDS ORDERED: CHLORHEXIDINE GLUCONATE 2 % 1 PACK (2 CLOTHS)(extra cloths) TOPICAL PRN (22:30)
--- NOTE | 2017-11-24 22:49 | RADRPT ---
EXAM DATE/TIME: 11/24/2017 22:17 [facility] COMPARISON: CT ABDOMEN & PELVIS W CONTRAST, November 11, 2017, 17:19. INDICATIONS : Ascites. ORAL CONTRAST: No oral contrast ingested. RADIATION DOSE: 16.49 CTDIvol (mGy) MEDICAL HISTORY : Gastroesophageal reflux disease. Hepatitis C. SURGICAL HISTORY : None. ENCOUNTER: Initial ACUITY: 3 days PAIN SCALE: 4/10 LOCATION: Bilateral lower quadrant upper quadrant TECHNIQUE: Volumetric scanning of the abdomen and pelvis was performed. Using automated exposure control and adjustment of the mA and/or kV according to patient size, radiation dose was kept as low as reasonably achievable to obtain optimal diagnostic quality images. DICOM format image data is av ailable electronically for review and comparison. FINDINGS: LOWER LUNGS: Bibasilar atelectasis is noted. LIVER: Hepatomegaly is noted. Homogeneous density without lesion. There is no dilation of the bi liary tree. The gallbladder is diffusely thickened but nondistended. SPLEEN: Normal size without lesion. PANCREAS: Within normal limits. KIDNEYS: Normal in size and shape. There is no mass, stone, or hydronephrosis. ADRENAL GLANDS: Within normal limits. VASCULAR: There is no aortic aneurysm. BOWEL/MESENTERY: The stomach, small bowel, and colon demonstrate no acute abnormality. There is no free intraperitoneal air. Moderate amount of ascites is noted throughout the abdomen and pelvis. A pparent intra-abdominal varices are again noted and stable. ABDOMINAL WALL: Within normal limits. RETROPERITONEUM: There is no lymphadenopathy. BLADDER: No wall thickening or mass. REPRODUCTIVE: Within normal limits. INGUINAL: There is no lymphadenopathy or hernia. MUSCULOSKELETAL: Within normal limits for patient age. CONCLUSION: Moderate amount of ascites. Hepatomegaly. Apparent intra-abdominal varices which are stable compared to previous examination. Bibasilar atelectasis. Eddie Monteiro MD on November 24, 2017 at 22:43 Board Certified Radiologist. This report was verified electronically.
--- NOTE | 2017-11-24 23:11 | RADRPT ---
EXAM DATE/TIME: 11/24/2017 22:30 [facility] COMPARISON: No previous studies available for comparison. INDICATIONS : Chest pain. MEDICAL HISTORY : None. SURGICAL HISTORY : None. ENCOUNTER: Subsequent ACUITY: 1 day PAIN SCORE: 5/10 LOCATION: chest Center FINDINGS: Left basilar streakiness is noted consistent with atelectasis and/or mild infiltrate. There is elevat ion the right hemidiaphragm. The heart is top normal. CONCLUSION: Left basilar streakiness consistent with atelectasis and/or mild infiltrate. Elevation of the right h emidiaphragm. Eddie Monteiro MD on November 24, 2017 at 23:09 Board Certified Radiologist. This report was verified electronically.
[2017-11-25] VITALS (20 sets, daily range): BP systolic 109–140; BP diastolic 62–82; PULSE 42–115; RESP 16–41; TEMP 97.2–98.6; O2SAT 91–100
[2017-11-25 00:20] LABS: AUTOMATED NEUTROPHIL # 20.7 TH/MM3 (1.8-7.7); BASOPHIL # 0.1 TH/MM3 (0-0.2); BASOPHIL % 0.3 % (0.0-2.0); EOSINOPHIL # 0.3 TH/MM3 (0-0.4); EOSINOPHIL % 1.4 % (0.0-4.0); HEMATOCRIT 35.5 % (39.0-51.0); HEMOGLOBIN 12.9 GM/DL (13.0-17.0); LYMPH % 5.7 % (9.0-44.0); LYMPHOCYTE # 1.4 TH/MM3 (1.0-4.8); MEAN CELL VOLUME 99.8 FL (80.0-100.0); MEAN CORPUSCULAR HEMOGLOBIN 36.2 PG (27.0-34.0); MEAN PLATELET VOLUME 8.9 FL (7.0-11.0); MONO % 8.4 % (0.0-8.0); MONOCYTE # 2.1 TH/MM3 (0-0.9); NEUT % 84.2 % (16.0-70.0); PLATELET COUNT 276 TH/MM3 (150-450); RED BLOOD COUNT 3.56 MIL/MM3 (4.50-5.90); RED CELL DISTRIBUTION WIDTH 16.6 % (11.6-17.2); WHITE BLOOD COUNT 24.6 TH/MM3 (4.0-11.0)
[2017-11-25 00:21] LABS: MEAN CORPUSCULAR HGB CONC 36.3 % (32.0-36.0)
[2017-11-25 00:44] LABS: BICARBONATE 22.2 MEQ/L (21.0-32.0); CALCIUM 8.3 MG/DL (8.5-10.1); CREATININE 1.03 MG/DL (0.60-1.30)
[2017-11-25 01:14] LABS: BANDS 17 % (0-6); BASOPHILS 1 % (0-2); LYMPHOCYTES 2 % (9-44); MONOCYTES 9 % (0-8); NEUTROPHIL # MANUAL DIFF 21.4 TH/MM3 (1.8-7.7); POLYS (SEG NEUTROPHILS) 70 % (16-70)
[2017-11-25 01:15] LABS: TOXIC GRANULATION 1+ (NORMAL)
[2017-11-25] MEDS ORDERED: POTASSIUM CHLORIDE 25 MEQ EFFERVESCENT TAB PO SCH (01:45)
[2017-11-25] MEDS: cefTRIAXone INJ 2,000 MG in SODIUM CHLORIDE 0.9% INJ 100 ML IV SCH (01:59)
[2017-11-25] MEDS: POTASSIUM CHLOR 20 MEQ PREMIX 100 ML IV SCH ×3 (02:00→06:00)
[2017-11-25] MEDS: 1/2 NS + KCL 20 MEQ INJ 1,000 ML IV SCH (02:05)
[2017-11-25] MEDS: hydrOXYzine HCL 25 MG TAB PO PRN ×3 (03:08→17:31)
[2017-11-25] MEDS: CHLORHEXIDINE GLUCONATE 2 % 1 PACK (2 CLOTHS)(taper/protocol) TOPICAL SCH (04:00)
[2017-11-25 04:37] LABS: BACTERIA, URINE RARE /hpf; BILIRUBIN, URINE LARGE (NEG); BLOOD, URINE TRACE (NEG); GLUCOSE,URINE NEG (NEG); KETONE, URINE NEG (NEG); MUCUS URINE FEW /lpf (OCC); NITRITE,URINE NEG (NEG); PH, URINE 6.5 (5.0-8.5); SQUAMOUS EPITHELIAL CELL URINE <1 /hpf (0-5); URINE COLOR DARK-YELLOW (YELLW/STRAW); URINE LEUKOCYTE ESTERASE TRACE (NEG)
[2017-11-25 05:08] LABS: AUTOMATED NEUTROPHIL # 20.7 TH/MM3 (1.8-7.7); BASOPHIL # 0.1 TH/MM3 (0-0.2); BASOPHIL % 0.3 % (0.0-2.0); EOSINOPHIL # 0.4 TH/MM3 (0-0.4); EOSINOPHIL % 1.8 % (0.0-4.0); HEMATOCRIT 35.7 % (39.0-51.0); HEMOGLOBIN 12.9 GM/DL (13.0-17.0); LYMPH % 8.2 % (9.0-44.0); LYMPHOCYTE # 2.1 TH/MM3 (1.0-4.8); MEAN CELL VOLUME 100.8 FL (80.0-100.0); MEAN CORPUSCULAR HEMOGLOBIN 36.4 PG (27.0-34.0); MEAN PLATELET VOLUME 8.8 FL (7.0-11.0); MONO % 7.7 % (0.0-8.0); MONOCYTE # 1.9 TH/MM3 (0-0.9); PLATELET COUNT 271 TH/MM3 (150-450); RED BLOOD COUNT 3.55 MIL/MM3 (4.50-5.90); RED CELL DISTRIBUTION WIDTH 16.6 % (11.6-17.2); WHITE BLOOD COUNT 25.2 TH/MM3 (4.0-11.0)
[2017-11-25 05:12] LABS: MEAN CORPUSCULAR HGB CONC 36.1 % (32.0-36.0)
[2017-11-25] MEDS: POTASSIUM CHLORIDE 25 MEQ EFFERVESCENT TAB NG SCH ×3 (06:17→19:42)
[2017-11-25 07:56] LABS: BANDS 11 % (0-6); LYMPHOCYTES 12 % (9-44); MONOCYTES 11 % (0-8); NEUTROPHIL # MANUAL DIFF 19.4 TH/MM3 (1.8-7.7); POLYS (SEG NEUTROPHILS) 66 % (16-70)
[2017-11-25 07:57] LABS: TOXIC GRANULATION 1+ (NORMAL)
[2017-11-25 07:58] LABS: TARGET CELLS 2+ (NORMAL)
[2017-11-25] MEDS: DOCUSATE SODIUM 50 MG/SENNA 8.6 MG TAB PO SCH ×2 (09:00→19:28)
[2017-11-25] MEDS: PANTOPRAZOLE SOD 40 MG DELAYED RELEASE TAB PO SCH (09:25)
[2017-11-25] MEDS: SODIUM CHLORIDE 0.9% FLUSH 10 ML FLUSH IV FLUSH SCH ×2 (09:25→19:42)
--- NOTE | 2017-11-25 10:02 | HHI.CCPN ---
Subjective Remarks/Hospital Course 11/24: 37-year-old male with a history of alcoholic cirrhosis and end-stage liver disease who presents with worsening abdominal cramps. Per report he continues to drink alcohol. The emergency department he was found to have leukocytosis. He is admitted for workup for his abdominal pain. He is slightly somnolent and difficult to get a full history. He denies fever, chills. Denies chest pain, shortness of breath. Only symptom is abdominal pain. Denies nausea, vomiting, diarrhea, constipation. Denies bright red blood per rectum or hematemesis or dark tarry stools. 11/25: Resting comfortably in bed not in any acute distress. Awaiting paracentesis. Objective Vital Signs Date Time Temp Pulse Resp B/P (MAP) Pulse Ox O2 Delivery O2 Flow Rate FiO2 11/25/17 08:00 98.3 99 29 110/70 (83) 97 11/24/17 20:36 Nasal Cannula 2.00 Intake and Output 11/25/17 11/25/17 11/26/17 08:00 16:00 00:00 Intake Total 100 ml Output Total 700 ml Balance -600 ml Result Diagram: 11/25/17 0455 11/24/17 2313 Imaging Last Impressions Chest X-Ray 11/24/17 0000 Signed Impressions: Service Date/Time: November 22:30 - CONCLUSION: Left basilar streakiness consistent with atelectasis and/or mild infiltrate. Elevation of the right hemidiaphragm. Eddie Monteiro MD Abdomen/Pelvis CT 11/24/17 0000 Signed Impressions: Service Date/Time: November 22:17 - CONCLUSION: Moderate amount of ascites. Hepatomegaly. Apparent intra-abdominal varices which are stable compared to previous examination. Bibasilar atelectasis. Eddie Monteiro MD Objective Remarks GENERAL: Young male who appears older than stated age, lying in bed. Very noticeably jaundice HEENT: Normocephalic. Atraumatic. Pupils equal, round, reactive, conjugate. Sclerae icteric. Mucous membranes are moist NECK: Trachea is midline. There is no JVD. CHEST: Equal chest rise. Nasal cannula oxygen. CARDIOVASCULAR: Normal rate, regular rhythm. Sinus by telemetry ABDOMEN: Soft, nontender, distended. No guarding. Positive fluid wave MUSCULOSKELETAL: Pulses 2+. 1+ peripheral edema. NEUROLOGICAL: RASS -1. Follows commands. A/P Assessment and Plan Assessment: 37-year-old male with end-stage liver disease and acutely worsening of his liver function along with worsening abdominal pain. With his leukocytosis, spontaneous pectoral peritonitis would be of high clinical concern. Agree with having interventional radiology perform diagnostic paracentesis. Covered with antibiotics: Cefotaxime is not currently available in our pharmacy due to national shortage. Instead we will start him on Rocephin 2 g IV every 24 hours. We will watch him closely in intensive care setting. Active problems: End-stage liver disease Alcoholic cirrhosis Acute abdominal pain Possible spontaneous bacterial peritonitis Plan: Observe in ICU Daily coags, CMP to trend liver function. Trend MELD score daily. Close monitoring of urine output Rocephin 2 g IV every 24 hours IR consult for diagnostic paracentesis GI consult Blood cultures 2 ordered on 11/25. Will consult ID following paracentesis. [facility] protocol Watch for withdrawal symptoms Avoid long-acting sedatives Trend ammonia Oxycodone as needed for abdominal pain: Hydrocodone, oxycodone, Dilaudid, and fentanyl are preferred narcotic pain options as they have the best pharmacokinetic profile in end-stage liver disease. Nathaniel Whittaker MD Nov 25, 2017 10:02
[2017-11-25] MEDS ORDERED: ALBUMIN 25% INJ 0 ML IV ONE (11:15)
--- NOTE | 2017-11-25 11:56 | HHI.PR ---
Subjective Remarks paracentesis today Objective Vital Signs Date Time Temp Pulse Resp B/P (MAP) Pulse Ox O2 Delivery O2 Flow Rate FiO2 11/25/17 10:23 97.5 101 16 132/77 (95) 97 11/25/17 10:00 115 11/25/17 09:00 101 11/25/17 08:00 98.3 99 29 110/70 (83) 97 11/25/17 08:00 99 11/25/17 07:00 94 11/25/17 06:00 92 11/25/17 04:00 92 11/25/17 04:00 98.5 92 26 111/70 (84) 99 11/25/17 02:00 94 11/25/17 00:00 98.1 94 27 128/69 (88) 96 11/25/17 00:00 94 11/24/17 22:00 92 11/24/17 20:36 100 Nasal Cannula 2.00 11/24/17 20:00 98.1 90 26 105/58 (74) 100 11/24/17 20:00 90 11/24/17 18:00 96 11/24/17 16:00 95 11/24/17 16:00 98.2 96 21 109/58 (75) 98 I/O 11/24/17 11/24/17 11/24/17 11/25/17 11/25/17 11/25/17 07:00 15:00 23:00 07:00 15:00 23:00 Intake Total 650 ml 100 ml Output Total 725 ml 700 ml Balance -75 ml -600 ml Intake Oral 650 ml IV Total 100 ml Output Urine Total 725 ml 700 ml # Voids 1 # Bowel Movements 0 Result Diagram: 11/25/17 0455 11/24/17 2313 Imaging Last 48 hours Impressions Chest X-Ray 11/24/17 0000 Signed Impressions: Service Date/Time: November 22:30 - CONCLUSION: Left basilar streakiness consistent with atelectasis and/or mild infiltrate. Elevation of the right hemidiaphragm. Eddie Monteiro MD Abdomen/Pelvis CT 11/24/17 0000 Signed Impressions: Service Date/Time: November 22:17 - CONCLUSION: Moderate amount of ascites. Hepatomegaly. Apparent intra-abdominal varices which are stable compared to previous examination. Bibasilar atelectasis. Eddie Monteiro MD Procedures Scheduled for paracentesis today Medications and IVs Current Medications Medications (Trade) Dose Ordered Sig/Virgil Route Start Time Stop Time Status Last Admin (Dulcolax Supp) 10 mg DAILY PRN RECTAL 11/24/17 14:00 (Lactulose Liq) 30 ml DAILY PRN PO 11/24/17 14:00 (Atarax) 25 mg Q6H PRN PO 11/24/17 15:15 11/25/17 09:25 (Zofran Odt) 4 mg Q6H PRN PO 11/24/17 15:15 11/24/17 15:37 (Narcan Inj) 0.4 mg UNSCH PRN IV PUSH 11/24/17 16:45 (Katie-Colace) 1 tab BID PO 11/24/17 21:00 (Milk Of Magnesia Liq) 30 ml Q12H PRN PO 11/24/17 16:45 (Senokot) 17.2 mg Q12H PRN PO 11/24/17 16:45 (NS Flush) 2 ml UNSCH PRN IV FLUSH 11/24/17 16:45 (NS Flush) 2 ml BID IV FLUSH 11/24/17 21:00 11/25/17 09:25 (Romazicon Inj) 0.2 mg Q1M PRN IV PUSH 11/24/17 16:45 (Ativan) 1 mg Q4H PRN PO 11/24/17 16:45 (Ativan Inj) 1 mg Q4H PRN IV PUSH 11/24/17 16:45 (Ativan) 2 mg Q2H PRN PO 11/24/17 16:45 (Ativan Inj) 2 mg Q2H PRN IV PUSH 11/24/17 16:45 (Ativan Inj) 2 mg Q1H PRN IV PUSH 11/24/17 16:45 (Ativan Inj) 2 mg Q15M PRN IV PUSH 11/24/17 16:45 (Roxicodone) 5 mg Q4H PRN PO 11/24/17 21:15 11/25/17 09:25 Miscellaneous Information Patient in critical care unit? Ass... [id number] 11/24/17 22:30 (Chlorhexidine 2% Cloth) 3 pack DAILY@04 TOPICAL 11/25/17 04:00 11/29/17 04:01 (Chlorhexidine 2% Cloth) 3 pack UNSCH PRN TOPICAL 11/24/17 22:30 11/29/17 22:15 Ceftriaxone Sodium 2000 mg/ Sodium Chloride 100 ml @ 200 mls/hr Q24H IV 11/25/17 01:30 11/25/17 01:59 (Protonix) 40 mg DAILY PO 11/25/17 09:00 11/25/17 09:25 (K-Lyte Cl Eff) 25 meq Q12HR NG 11/25/17 06:00 11/25/17 06:17 Potassium Chloride/Sodium Chloride 1,000 ml @ 42 mls/hr [id number] IV 11/25/17 01:45 11/25/17 02:05 (Mephyton) 5 mg ONCE ONCE PO 11/25/17 10:15 11/25/17 10:16 UNV Albumin Human 0 ml @ 60 mls/hr ONCE ONCE IV 11/25/17 11:15 11/25/17 11:16 UNV Assessment and Plan Problem List: (1) Liver cirrhosis, alcoholic ICD Codes: K70.30 - Alcoholic cirrhosis of liver without ascites Status: Acute Plan: Gi Consult, monitor Ammonia levels, lactulose, Atrax for itch. (2) Anasarca ICD Codes: R60.1 - Generalized edema Status: Acute Plan: Scheduled for paracentesis today, (3) Hypokalemia ICD Codes: E87.6 - Hypokalemia Plan: On replacement, monitor bmp (4) AA (alcohol abuse) ICD Codes: F10.10 - Alcohol abuse, uncomplicated (5) Chronic alcohol use ICD Codes: Z72.89 - Other problems related to lifestyle Plan: On CIWA protocol. Discharge Planning > 45 min spent 11/24/17- from remote site for orders and review of test. Problem Qualifiers (1) Liver cirrhosis, alcoholic: Qualified Codes: K70.31 - Alcoholic cirrhosis of liver with ascites Shayy Alonzo Nov 25, 2017 11:56
[2017-11-25] MEDS ORDERED: PHYTONADIONE 5 MG/SWFI 5 ML ORAL SYR PO ONE (12:15)
[2017-11-25 12:24] LABS: TOTAL PROTEIN,PERITONEAL FLUID 0.9 GM/DL
[2017-11-25] MEDS ORDERED: PHYTONADIONE 5 MG TAB PO ONE (12:25)
--- NOTE | 2017-11-25 12:51 | RADRPT ---
EXAM DATE/TIME: 11/25/2017 10:16 [place] COMPARISON: No previous studies available for comparison. INDICATIONS : Ascites. MEDICAL HISTORY : Gastroesophageal reflux disease. Hepatitis. ETOH use daily. Asthma. 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 ENCOUNTER: Initial ACUITY: 1 day PAIN SCORE: 5/10 LOCATION: Bilateral lower quadrant FLUID: Total volume of 4400 cc of clear, yellow fluid was removed. Fluid was sent to lab for ordered studies. Post procedure scanning reveals no hematoma or other complication. TECHNIQUE: 1. Ultrasound guidance for abdominal paracentesis. 2. Paracentesis. The risks, benefits, and alternatives to ultrasound guided paracentesis were explained to the patient in detail including the risk of bleeding and infection. Written and verbal informed consent was obt ained. With the patient on the ultrasound table, ultrasound imaging was used to select the most appropriate approach for paracentesis. Overlying skin was prepped and draped in the usual sterile fashion and wi th a local anesthetic, a dermatotomy was made with an 11 blade scalpel. A 6 Pashto [id number] ca theter was introduced into the peritoneal cavity and fluid was collected. The patient tolerated the procedure well and left the ultrasound suite in stable condition. CONCLUSION: Uncomplicated ultrasound guided paracentesis. Roly Brantley MD FACR on November 25, 2017 at 12:50 Board Certified Radiologist. This report was verified electronically.
[2017-11-25 13:02] LABS: PERITONEAL HISTIOCYTES 10 %; PERITONEAL LYMPHS 15 %; PERITONEAL MONOS 20 %; PERITONEAL POLYS(SEGS) 55 %; PERITONEAL RBC 174 /MM3 (0-0)
[2017-11-25] MEDS ORDERED: ALBUMIN 25% INJ 100 ML IV ONE (13:45)
[2017-11-25] MEDS ORDERED: LIDOCAINE HCL 1% 20 ML VIAL ONE (14:23)
[2017-11-25] MEDS ORDERED: POTASSIUM CHLORIDE 25 MEQ EFFERVESCENT TAB PO ONE ×2 (14:30→18:00)
--- NOTE | 2017-11-25 15:13 | PD.CONS ---
HPI History of Present Illness This is a 37 year old obese male who was admitted to [facility] on and was placed in the intensive care setting for close monitoring. He had recently been treated at the [facility]. He's been having symptoms of abdominal cramping and abdominal bloating for at least 1 month. He is a daily alcohol consumer, and is never had any type of GI workup which includes EGD or colonoscopy. Currently patient is resting with his eyes closed denies any nausea , vomiting, diarrhea, or constipation. He is status post paracentesis today with removal of 4.4 L of fluid. Patient states that he is feeling less bloated and less short of breath and is breathing much better. He still states some mild abdominal cramping off and on, denies any dysphasia denies any obvious upper or lower GI bleeding. According to the record he was recently diagnosed with alcoholic liver cirrhosis he did have a GI consultation and labs which included CT and MRI imaging which showed diffusely cirrhotic liver. (Lise Boland) PFSH Past Medical History Recent diagnosis of alcoholic liver cirrhosis History of asthma Daily alcohol usage Past Surgical History Paracentesis today 2017, 4.4 L of fluid removed from his abdomen (Lise Boland) Coded Allergies: No Known Allergies (Verified , 11/24/17) Medications Administered Medications Medications (Trade) Dose Ordered Sig/Virgil Route PRN Reason Start Time Stop Time Status Last Admin Dose Admin Hydroxyzine HCl (Atarax) 25 mg Q6H PRN PO ITCHING 11/24/17 15:15 11/25/17 09:25 Ondansetron HCl (Zofran Odt) 4 mg Q6H PRN PO NAUSEA 11/24/17 15:15 11/24/17 15:37 Sodium Chloride (NS Flush) 2 ml BID IV FLUSH 11/24/17 21:00 11/25/17 09:25 Oxycodone HCl (Roxicodone) 5 mg Q4H PRN PO pain 1-5 11/24/17 21:15 11/25/17 14:51 Ceftriaxone Sodium 2000 mg/ Sodium Chloride 100 ml @ 200 mls/hr Q24H IV 11/25/17 01:30 11/25/17 01:59 Pantoprazole Sodium (Protonix) 40 mg DAILY PO 11/25/17 09:00 3/2/18 09:25 Potassium Bicarb/ Potassium Chloride (K-Lyte Cl Eff) 25 meq Q12HR NG 11/25/17 06:00 11/25/17 06:17 Potassium Chloride/Sodium Chloride 1,000 ml @ 42 mls/hr [id number] IV 11/25/17 01:45 11/25/17 02:05 Social History Quarter pack a day of cigarettes Daily alcohol consumption which she continues to partake and even after his recent hospital stay (Lise Boland) Review of Systems Constitutional: COMPLAINS OF: Fatigue Gastrointestinal: COMPLAINS OF: Abdominal pain (Lise Boland) GI Exam Vitals I&O Vital Signs Date Time Temp Pulse Resp B/P (MAP) Pulse Ox O2 Delivery O2 Flow Rate FiO2 11/25/17 13:00 101 11/25/17 12:00 98.0 42 22 140/82 (101) 92 11/25/17 11:30 97.2 95 16 112/62 (79) 95 11/25/17 11:15 97.2 91 16 109/66 (80) 91 11/25/17 10:23 97.5 101 16 132/77 (95) 97 11/25/17 10:00 115 11/25/17 09:00 101 11/25/17 08:00 98.3 99 29 110/70 (83) 97 11/25/17 08:00 99 11/25/17 07:00 94 11/25/17 06:00 92 11/25/17 04:00 92 11/25/17 04:00 98.5 92 26 111/70 (84) 99 11/25/17 02:00 94 11/25/17 00:00 98.1 94 27 128/69 (88) 96 11/25/17 00:00 94 11/24/17 22:00 92 11/24/17 20:36 100 Nasal Cannula 2.00 11/24/17 20:00 98.1 90 26 105/58 (74) 100 11/24/17 20:00 90 11/24/17 18:00 96 11/24/17 16:00 95 11/24/17 16:00 98.2 96 21 109/58 (75) 98 I/O 11/24/17 11/24/17 11/24/17 11/25/17 11/25/17 11/25/17 07:00 15:00 23:00 07:00 15:00 23:00 Intake Total 650 ml 100 ml Output Total 725 ml 700 ml Balance -75 ml -600 ml Intake Oral 650 ml IV Total 100 ml Output Urine Total 725 ml 700 ml # Voids 1 # Bowel Movements 0 Imaging Last Impressions Cyst Biopsy Asp-Paracentesis US 11/25/17 0000 Signed Impressions: Service Date/Time: Saturday, November 25, 2017 10:16 - CONCLUSION: Uncomplicated ultrasound guided paracentesis. Roly Brantley MD FACR Chest X-Ray 11/24/17 0000 Signed Impressions: Service Date/Time: November 22:30 - CONCLUSION: Left basilar streakiness consistent with atelectasis and/or mild infiltrate. Elevation of the right hemidiaphragm. Eddie Monteiro MD Abdomen/Pelvis CT 11/24/17 0000 Signed Impressions: Service Date/Time: November 22:17 - CONCLUSION: Moderate amount of ascites. Hepatomegaly. Apparent intra-abdominal varices which are stable compared to previous examination. Bibasilar atelectasis. Eddie Monteiro MD Laboratory Test 11/24/17 15:30 11/24/17 23:13 11/25/17 04:00 11/25/17 04:55 Nasal Screen MRSA (PCR) MRSA NOT DETECTED White Blood Count 24.6 TH/MM3 25.2 TH/MM3 Red Blood Count 3.56 MIL/MM3 3.55 MIL/MM3 Hemoglobin 12.9 GM/DL 12.9 GM/DL Hematocrit 35.5 % 35.7 % Mean Corpuscular Volume 99.8 FL 100.8 FL Mean Corpuscular Hemoglobin 36.2 PG 36.4 PG Mean Corpuscular Hemoglobin Concent 36.3 % 36.1 % Red Cell Distribution Width 16.6 % 16.6 % Platelet Count 276 TH/MM3 271 TH/MM3 Mean Platelet Volume 8.9 FL 8.8 FL Neutrophils (%) (Auto) 84.2 % 82.0 % Lymphocytes (%) (Auto) 5.7 % 8.2 % Monocytes (%) (Auto) 8.4 % 7.7 % Eosinophils (%) (Auto) 1.4 % 1.8 % Basophils (%) (Auto) 0.3 % 0.3 % Neutrophils # (Auto) 20.7 TH/MM3 20.7 TH/MM3 Lymphocytes # (Auto) 1.4 TH/MM3 2.1 TH/MM3 Monocytes # (Auto) 2.1 TH/MM3 1.9 TH/MM3 Eosinophils # (Auto) 0.3 TH/MM3 0.4 TH/MM3 Basophils # (Auto) 0.1 TH/MM3 0.1 TH/MM3 CBC Comment AUTO DIFF AUTO DIFF Differential Total Cells Counted 100 100 Neutrophils % (Manual) 70 % 66 % Band Neutrophils % 17 % 11 % Lymphocytes % 2 % 12 % Monocytes % 9 % 11 % Eosinophils % 1 % Basophils % 1 % Neutrophils # (Manual) 21.4 TH/MM3 19.4 TH/MM3 Differential Comment FINAL DIFF MANUAL FINAL DIFF MANUAL Toxic Granulation 1+ 1+ Platelet Morphology Comment NORMAL NORMAL Blood Urea Nitrogen 13 MG/DL Creatinine 1.03 MG/DL Random Glucose 94 MG/DL Calcium Level 8.3 MG/DL Sodium Level 134 MEQ/L Potassium Level 2.7 MEQ/L Chloride Level 99 MEQ/L Carbon Dioxide Level 22.2 MEQ/L Anion Gap 13 MEQ/L Estimat Glomerular Filtration Rate 80 ML/MIN Urine Color DARK-YELLOW Urine Turbidity CLEAR Urine pH 6.5 Urine Specific Mustang 1.012 Urine Protein NEG mg/dL Urine Glucose (UA) NEG mg/dL Urine Ketones NEG mg/dL Urine Occult Blood TRACE Urine Nitrite NEG Urine Bilirubin LARGE Urine Urobilinogen LESS THAN 2.0 MG/DL Urine Leukocyte Esterase TRACE Urine RBC LESS THAN 1 /hpf Urine WBC 2 /hpf Urine Squamous Epithelial Cells <1 /hpf Urine Bacteria RARE /hpf Urine Mucus FEW /lpf Microscopic Urinalysis Comment CULT NOT INDICATED Platelet Estimate NORMAL Target Cells 2+ Ammonia 52 MCMOL/L Test 11/25/17 10:57 Peritoneal Fluid WBC 174 /MM3 Peritoneal Fluid RBC 174 /MM3 Peritoneal Fluid Neutrophils 55 % Peritoneal Fluid Lymphocytes 15 % Peritoneal Fluid Monocytes 20 % Peritoneal Fluid Histiocytes 10 % Peritoneal Fluid Total Protein 0.9 GM/DL Peritoneal Fluid Albumin 0.4 G/DL Peritoneal Fluid LDH 36 U/L Peritoneal Fluid Glucose 94 MG/DL Date/Time Source Procedure Growth Status 11/25/17 13:26 Blood Peripheral Aerobic Blood Culture Pending Received 11/25/17 13:26 Blood Peripheral Anaerobic Blood Culture Pending Received 11/25/17 10:57 Fluid Peritoneal Fluid Gram Stain - Final Resulted 11/25/17 10:57 Fluid Peritoneal Fluid Body Fluid Culture Pending Resulted Physical Examination HEENT: Pupils round and reactive to light; normocephalic; atraumatic; no jaundice. No drooling noted, oral cavity clean, sclera icteric NECK: Neck is supple obese, no JVD, no lymphadenopathy. CHEST: Diminished breath sounds posteriorly, upper air maier essentially clear CARDIAC: S1 and S2, distant,, mild tachycardia heart rate in between 95 and 108 ABDOMEN: taut, mild distention with mild bloating, occasional abdominal cramping; bowel sounds are present in all four quadrants. EXTREMITIES: Moves all extremities with purpose SKIN: Icteric; no rash; SET DESIGNER: Withdrawn, minimal conversation mild anxiety alert and oriented times three. (Lise Boland) Assessment and Plan Plan Alcoholic cirrhosis, fairly new diagnosis, according to the record has started initial labs and CT imaging. At this time patient continues to consume daily alcohol. First paracentesis done today 11/25/17 with 4.4 L were withdrawn. No albumin given. Patient does have some immediate abdominal pain and bloating relief. Current labs include bilirubin 24.3, LFTs 69 AST, ALT 34, alkaline phosphatase 279, ammonia level 52, PT INR 1.7, WBC count 25.2, hemoglobin 12.9. Records from previous admission on 11/12/17 show mitochondrial M2 AB 22.9 FINA screen negative, tissue transglutaminase IgA 2, cryoglobulin negative cryoglobulin and Cryocrit none detected. Smooth muscle antibody +1:20. , Hepatitis profile negative., 11/12/17, Ceruloplasmin 40, alpha-1 antitrypsin 251, albumin 1.9 on 11/24/17,. On 11/13/17 direct bilirubin 17.5, indirect 3.5. Abdominal cramping controlled now Abdominal CT on 11/24/17 showed moderate amount of ascites and hepatomegaly. 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 Basilar atelectasis. Portal hypertension, secondary to cirrhosis liver disease, abdominal varices appear to be stable for now no obvious bleeding Paracentesis performed on 11/25/17 uncomplicated ultrasound-guided 4.4 L removed Plan Continue liver workup, appears to be alcohol related cirrhosis Will need liver biopsy Discussed with patient the need for abstinence of alcohol, and working with the medical team to keep his disease process under control. Lactulose 30 mL started twice a day Monitor for any acute hemorrhage or bleeding Supportive care Monitor labs,, we'll recheck in a.m. Patient was seen per myself and Dr. Quinonez, done on his behalf (Lise Boland) Plan Patient was seen and examined, agree with above noted, patient was at [facility] recently seems that he is back to drinking and smoking marijuana , he had distention of his abdomen with ascites, this was relieved after taking 4 L of fluid, overall guarded prognosis because I do not think the patient will be able to be of alcohol completely and his cirrhosis would be worse with being noncompliant, we will follow-up with you, we will wait for the results of the paracentesis to make sure that the patient does not have SBP (Barbie Keen MD) Lise Boland Nov 25, 2017 15:13 Barbie Keen MD Nov 25, 2017 18:14
[2017-11-25] MEDS: LACTULOSE SYRUP 20 GM/30 ML CUP PO SCH (19:42)
[2017-11-26] VITALS (12 sets, daily range): BP systolic 115–141; BP diastolic 68–87; PULSE 101–110; RESP 22–29; TEMP 98–98.6; O2SAT 93–100
[2017-11-26] MEDS: 1/2 NS + KCL 20 MEQ INJ 1,000 ML IV SCH (01:34)
[2017-11-26] MEDS: hydrOXYzine HCL 25 MG TAB PO PRN ×3 (02:39→21:39)
[2017-11-26] MEDS: cefTRIAXone INJ 2,000 MG in SODIUM CHLORIDE 0.9% INJ 100 ML IV SCH (02:39)
[2017-11-26] MEDS: CHLORHEXIDINE GLUCONATE 2 % 1 PACK (2 CLOTHS)(taper/protocol) TOPICAL SCH (04:00)
[2017-11-26 07:50] LABS: INTERNATIONAL NORMALIZED RATIO 1.7 RATIO; PROTHROMBIN TIME - PATIENT 17.1 SEC (9.8-11.6)
[2017-11-26 07:52] LABS: AUTOMATED NEUTROPHIL # 20.2 TH/MM3 (1.8-7.7); BASOPHIL # 0.2 TH/MM3 (0-0.2); BASOPHIL % 0.6 % (0.0-2.0); EOSINOPHIL # 0.6 TH/MM3 (0-0.4); EOSINOPHIL % 2.3 % (0.0-4.0); LYMPH % 7.1 % (9.0-44.0); LYMPHOCYTE # 1.8 TH/MM3 (1.0-4.8); MEAN CELL VOLUME 101.5 FL (80.0-100.0); MEAN CORPUSCULAR HEMOGLOBIN 35.7 PG (27.0-34.0); MEAN CORPUSCULAR HGB CONC 35.2 % (32.0-36.0); MEAN PLATELET VOLUME 8.6 FL (7.0-11.0); MONO % 9.3 % (0.0-8.0); MONOCYTE # 2.3 TH/MM3 (0-0.9); NEUT % 80.7 % (16.0-70.0); PLATELET COUNT 277 TH/MM3 (150-450); RED BLOOD COUNT 3.65 MIL/MM3 (4.50-5.90); RED CELL DISTRIBUTION WIDTH 16.7 % (11.6-17.2)
[2017-11-26] MEDS: SODIUM CHLORIDE 0.9% FLUSH 10 ML FLUSH IV FLUSH SCH ×2 (08:09→21:39)
[2017-11-26] MEDS: POTASSIUM CHLORIDE 25 MEQ EFFERVESCENT TAB NG SCH ×2 (08:10→21:39)
[2017-11-26] MEDS: LACTULOSE SYRUP 20 GM/30 ML CUP PO SCH ×3 (08:10→17:25)
[2017-11-26] MEDS: PANTOPRAZOLE SOD 40 MG DELAYED RELEASE TAB PO SCH (08:10)
[2017-11-26] MEDS: DOCUSATE SODIUM 50 MG/SENNA 8.6 MG TAB PO SCH ×2 (08:11→20:48)
[2017-11-26 08:50] LABS: ALBUMIN 1.8 GM/DL (3.4-5.0); DIRECT BILIRUBIN ADULT 20.4 MG/DL (0.0-0.2); INDIRECT BILIRUBIN 3.6 MG/DL (0.0-0.8)
[2017-11-26 09:54] LABS: BANDS 14 % (0-6); LYMPHOCYTES 7 % (9-44); METAMYELOCYTES 1 % (0-1); MONOCYTES 4 % (0-8); POLYS (SEG NEUTROPHILS) 73 % (16-70); TOXIC GRANULATION 1+ (NORMAL)
[2017-11-26 09:55] LABS: TARGET CELLS 1+ (NORMAL)
--- NOTE | 2017-11-26 10:39 | HHI.GIFU ---
Subjective Remarks Pt resting in bed napping. c/o diffuse abd discomfort. (Alice Campbell COMMUNITY ASSOCIATION MANAGER) Objective Vitals I&O Vital Signs Date Time Temp Pulse Resp B/P (MAP) Pulse Ox O2 Delivery O2 Flow Rate FiO2 11/26/17 08:00 110 11/26/17 08:00 98.0 110 135/78 (97) 99 11/26/17 06:00 101 11/26/17 04:00 104 11/26/17 04:00 98.6 104 115/68 (84) 100 11/26/17 02:00 106 11/26/17 00:00 109 11/26/17 00:00 98.6 109 29 125/80 (95) 96 11/25/17 22:00 97 11/25/17 20:00 93 11/25/17 20:00 98.6 93 27 118/64 (82) 97 11/25/17 18:00 96 11/25/17 17:00 88 11/25/17 16:00 95 11/25/17 16:00 98.5 95 21 123/67 (85) 99 11/25/17 15:00 98.3 100 41 126/64 (84) 100 11/25/17 15:00 100 11/25/17 14:00 98 11/25/17 13:00 101 11/25/17 12:00 98.0 42 22 140/82 (101) 92 11/25/17 11:30 97.2 95 16 112/62 (79) 95 11/25/17 11:15 97.2 91 16 109/66 (80) 91 I/O 11/25/17 11/25/17 11/25/17 11/26/17 11/26/17 11/26/17 07:00 15:00 23:00 07:00 15:00 23:00 Intake Total 100 ml 1400 ml 100 ml Output Total 700 ml 750 ml 350 ml Balance -600 ml 650 ml -250 ml Intake Oral 1400 ml IV Total 100 ml 100 ml Output Urine Total 700 ml 750 ml 350 ml # Bowel Movements 0 0 Laboratory Laboratory Tests Test 11/25/17 10:57 11/26/17 07:26 Peritoneal Fluid WBC 174 Peritoneal Fluid RBC 174 Peritoneal Fluid Neutrophils 55 Peritoneal Fluid Lymphocytes 15 Peritoneal Fluid Monocytes 20 Peritoneal Fluid Histiocytes 10 Peritoneal Fluid Total Protein 0.9 Peritoneal Fluid Albumin 0.4 Peritoneal Fluid LDH 36 Peritoneal Fluid Glucose 94 White Blood Count 25.0 Red Blood Count 3.65 Hemoglobin 13.0 Hematocrit 37.0 Mean Corpuscular Volume 101.5 Mean Corpuscular Hemoglobin 35.7 Mean Corpuscular Hemoglobin Concent 35.2 Red Cell Distribution Width 16.7 Platelet Count 277 Mean Platelet Volume 8.6 Neutrophils (%) (Auto) 80.7 Lymphocytes (%) (Auto) 7.1 Monocytes (%) (Auto) 9.3 Eosinophils (%) (Auto) 2.3 Basophils (%) (Auto) 0.6 Neutrophils # (Auto) 20.2 Lymphocytes # (Auto) 1.8 Monocytes # (Auto) 2.3 Eosinophils # (Auto) 0.6 Basophils # (Auto) 0.2 CBC Comment AUTO DIFF Differential Total Cells Counted 100 Neutrophils % (Manual) 73 Band Neutrophils % 14 Lymphocytes % 7 Monocytes % 4 Eosinophils % 1 Neutrophils # (Manual) 22.0 Metamyelocytes 1 Differential Comment FINAL DIFF MANUAL Toxic Granulation 1+ Platelet Estimate NORMAL Platelet Morphology Comment NORMAL Target Cells 1+ Prothrombin Time 17.1 Prothromb Time International Ratio 1.7 Total Bilirubin 24.0 Direct Bilirubin 20.4 Indirect Bilirubin 3.6 Aspartate Amino Transf (AST/SGOT) 68 Alanine Aminotransferase (ALT/SGPT) 31 Alkaline Phosphatase 300 Ammonia 61 Total Protein 7.0 Albumin 1.8 Date/Time Source Procedure Growth Status 11/25/17 13:26 Blood Peripheral Aerobic Blood Culture Pending Received 11/25/17 13:26 Blood Peripheral Anaerobic Blood Culture Pending Received 11/25/17 10:57 Fluid Peritoneal Fluid Gram Stain - Final Resulted 11/25/17 10:57 Fluid Peritoneal Fluid Body Fluid Culture Pending Resulted Imaging Last Impressions Cyst Biopsy Asp-Paracentesis US 11/25/17 0000 Signed Impressions: Service Date/Time: Saturday, November 25, 2017 10:16 - CONCLUSION: Uncomplicated ultrasound guided paracentesis. Roly Brantley MD FACR Chest X-Ray 11/24/17 0000 Signed Impressions: Service Date/Time: November 22:30 - CONCLUSION: Left basilar streakiness consistent with atelectasis and/or mild infiltrate. Elevation of the right hemidiaphragm. Eddie Monteiro MD Abdomen/Pelvis CT 11/24/17 0000 Signed Impressions: Service Date/Time: November 22:17 - CONCLUSION: Moderate amount of ascites. Hepatomegaly. Apparent intra-abdominal varices which are stable compared to previous examination. Bibasilar atelectasis. Eddie Monteiro MD Physical Exam HEENT: PERRL; normocephalic; atraumatic; icteric CHEST: CTA CARDIAC: RRR ABDOMEN: Soft, distended, diffuse TTP; bowel sounds soft EXTREMITIES: No clubbing, cyanosis, or edema. SKIN: Normal; no rash; significant jaundice. CBX OPERATOR: lethargic but rousable and answers appropriately. (Alice Campbell) Assessment and Plan Plan Plan Alcoholic cirrhosis, fairly new diagnosis, according to the record has started initial labs and CT imaging. At this time patient continues to consume daily alcohol. First paracentesis done today 11/25/17 with 4.4 L were withdrawn. No albumin given. Patient does have some immediate abdominal pain and bloating relief. Current labs include bilirubin 24.3, LFTs 69 AST, ALT 34, alkaline phosphatase 279, ammonia level 52, PT INR 1.7, WBC count 25.2, hemoglobin 12.9. Records from previous admission on 11/12/17 show mitochondrial M2 AB 22.9 FINA screen negative, tissue transglutaminase IgA 2, cryoglobulin negative cryoglobulin and Cryocrit none detected. Smooth muscle antibody +1:20. , Hepatitis profile negative., 11/12/17, Ceruloplasmin 40, alpha-1 antitrypsin 251, albumin 1.9 on 11/24/17,. On 11/13/17 direct bilirubin 17.5, indirect 3.5. Abdominal cramping controlled now Abdominal CT on 11/24/17 showed moderate amount of ascites and hepatomegaly. 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 Basilar atelectasis. Portal hypertension, secondary to cirrhosis liver disease, abdominal varices appear to be stable for now no obvious bleeding Paracentesis performed on 11/25/17 uncomplicated ultrasound-guided 4.4 L removed 11/26/17 - still with soem mild diffuse abd TTP. mildly lethargic but rousable and answers appropriately. DF is 47, could benefit from pentoxifylline vs steroid therapy if no SBP peritoneal fluid cultures and cytology pending. WBC elevated. Peritoneal WBC 174. Plan - TID pentoxifylline - TID lactulose - monitor labs - low sodium diet - await fluid cultures and cytology - ETOH cessation further recs to follow pt seen by myself and Dr Markham and this note is on his behalf (Alice Campbell) Physician Comments Seen and examined with COMMUNITY ASSOCIATION MANAGER, Some relief from paracentesis. Deeply icteric. No bleeding. Diet as tolerated. (Tamia Markham MD) Alice Campbell Nov 26, 2017 10:39 Tamia Markham MD Nov 26, 2017 14:12
--- NOTE | 2017-11-26 12:57 | HHI.CCPN ---
Subjective Remarks/Hospital Course 11/24: 37-year-old male with a history of alcoholic cirrhosis and end-stage liver disease who presents with worsening abdominal cramps. Per report he continues to drink alcohol. The emergency department he was found to have leukocytosis. He is admitted for workup for his abdominal pain. He is slightly somnolent and difficult to get a full history. He denies fever, chills. Denies chest pain, shortness of breath. Only symptom is abdominal pain. Denies nausea, vomiting, diarrhea, constipation. Denies bright red blood per rectum or hematemesis or dark tarry stools. 3: Resting comfortably in bed not in any acute distress. s/p paracentesis. 11/26: Resting comfortably not in any acute distress. Objective Vital Signs Date Time Temp Pulse Resp B/P (MAP) Pulse Ox O2 Delivery O2 Flow Rate FiO2 11/26/17 12:00 104 11/26/17 08:00 98.0 135/78 (97) 99 11/26/17 00:00 29 11/24/17 20:36 Nasal Cannula 2.00 Intake and Output 11/26/17 11/26/17 11/27/17 08:00 16:00 00:00 Intake Total 100 ml Output Total 350 ml Balance -250 ml Result Diagram: 11/26/17 0726 11/24/17 2313 Imaging Last Impressions Chest X-Ray 11/24/17 0000 Signed Impressions: Service Date/Time: November 22:30 - CONCLUSION: Left basilar streakiness consistent with atelectasis and/or mild infiltrate. Elevation of the right hemidiaphragm. Eddie Monteiro MD Abdomen/Pelvis CT 11/24/17 0000 Signed Impressions: Service Date/Time: November 22:17 - CONCLUSION: Moderate amount of ascites. Hepatomegaly. Apparent intra-abdominal varices which are stable compared to previous examination. Bibasilar atelectasis. Eddie Monteiro MD Objective Remarks GENERAL: Young male who appears older than stated age, lying in bed. Very noticeably jaundice HEENT: Normocephalic. Atraumatic. Pupils equal, round, reactive, conjugate. Sclerae icteric. Mucous membranes are moist NECK: Trachea is midline. There is no JVD. CHEST: Equal chest rise. Nasal cannula oxygen. CARDIOVASCULAR: Normal rate, regular rhythm. Sinus by telemetry ABDOMEN: Soft, nontender, distended. No guarding. Positive fluid wave MUSCULOSKELETAL: Pulses 2+. 1+ peripheral edema. NEUROLOGICAL: RASS -1. Follows commands. A/P Assessment and Plan Assessment: 37-year-old male with end-stage liver disease and acutely worsening of his liver function along with worsening abdominal pain. With his leukocytosis, spontaneous pectoral peritonitis would be of high clinical concern. Agree with having interventional radiology perform diagnostic paracentesis. Covered with antibiotics: Cefotaxime is not currently available in our pharmacy due to national shortage. Instead placed on Rocephin 2 g IV every 24 hours. Active problems: End-stage liver disease Alcoholic cirrhosis Acute abdominal pain Possible spontaneous bacterial peritonitis Plan: Daily coags, CMP to trend liver function. Trend MELD score daily. Close monitoring of urine output Rocephin 2 g IV every 24 hours s/p paracentesis GI consult noted Blood cultures 2 ordered on 11/25. [facility] protocol Watch for withdrawal symptoms Avoid long-acting sedatives Trend ammonia Oxycodone as needed for abdominal pain: Hydrocodone, oxycodone, Dilaudid, and fentanyl are preferred narcotic pain options as they have the best pharmacokinetic profile in end-stage liver disease. Remains hemodynamically stable currently. Critical care will sign off at this time. Transfer out of ICU. Nathaniel Whittaker MD Nov 26, 2017 12:57
--- NOTE | 2017-11-26 13:24 | HHI.PR ---
Subjective Remarks S/P paracentesis and cultures pending but exam negative now for rebound tenderness. He is for transfer out of ICU per critical care. Objective Vital Signs Date Time Temp Pulse Resp B/P (MAP) Pulse Ox O2 Delivery O2 Flow Rate FiO2 11/26/17 12:00 104 11/26/17 12:00 101 11/26/17 10:00 104 11/26/17 08:00 110 11/26/17 08:00 98.0 110 135/78 (97) 99 11/26/17 06:00 101 11/26/17 04:00 104 11/26/17 04:00 98.6 104 115/68 (84) 100 11/26/17 02:00 106 11/26/17 00:00 109 11/26/17 00:00 98.6 109 29 125/80 (95) 96 11/25/17 22:00 97 11/25/17 20:00 93 11/25/17 20:00 98.6 93 27 118/64 (82) 97 11/25/17 18:00 96 11/25/17 17:00 88 11/25/17 16:00 95 11/25/17 16:00 98.5 95 21 123/67 (85) 99 11/25/17 15:00 98.3 100 41 126/64 (84) 100 11/25/17 15:00 100 11/25/17 14:00 98 I/O 11/25/17 11/25/17 11/25/17 11/26/17 11/26/17 11/26/17 07:00 15:00 23:00 07:00 15:00 23:00 Intake Total 100 ml 1400 ml 100 ml Output Total 700 ml 750 ml 350 ml Balance -600 ml 650 ml -250 ml Intake Oral 1400 ml IV Total 100 ml 100 ml Output Urine Total 700 ml 750 ml 350 ml # Bowel Movements 0 0 Result Diagram: 11/26/17 0711/24/17 2313 Procedures S/P paracentesis today Objective Remarks He C/O cramping but is cont to refuse IV KCL. Palliative care consulted due to ETOH cirrhosis Medications and IVs Current Medications Medications (Trade) Dose Ordered Sig/Virgil Route Start Time Stop Time Status Last Admin (Dulcolax Supp) 10 mg DAILY PRN RECTAL 11/24/17 14:00 (Lactulose Liq) 30 ml DAILY PRN PO 11/24/17 14:00 (Atarax) 25 mg Q6H PRN PO 11/24/17 15:15 11/26/17 02:39 (Zofran Odt) 4 mg Q6H PRN PO 11/24/17 15:15 11/24/17 15:37 (Narcan Inj) 0.4 mg UNSCH PRN IV PUSH 11/24/17 16:45 (Katie-Colace) 1 tab BID PO 11/24/17 21:00 (Milk Of Magnesia Liq) 30 ml Q12H PRN PO 11/24/17 16:45 (Senokot) 17.2 mg Q12H PRN PO 11/24/17 16:45 (NS Flush) 2 ml UNSCH PRN IV FLUSH 11/24/17 16:45 (NS Flush) 2 ml BID IV FLUSH 11/24/17 21:00 11/26/17 08:09 (Romazicon Inj) 0.2 mg Q1M PRN IV PUSH 11/24/17 16:45 (Ativan) 1 mg Q4H PRN PO 11/24/17 16:45 (Ativan Inj) 1 mg Q4H PRN IV PUSH 11/24/17 16:45 (Ativan) 2 mg Q2H PRN PO 11/24/17 16:45 (Ativan Inj) 2 mg Q2H PRN IV PUSH 11/24/17 16:45 11/25/17 21:58 (Ativan Inj) 2 mg Q1H PRN IV PUSH 11/24/17 16:45 (Ativan Inj) 2 mg Q15M PRN IV PUSH 11/24/17 16:45 (Roxicodone) 5 mg Q4H PRN PO 11/24/17 21:15 11/26/17 06:17 Miscellaneous Information Patient in critical care unit? Ass... Q361D .XX 11/24/17 22:30 (Chlorhexidine 2% Cloth) 3 pack DAILY@04 TOPICAL 11/25/17 04:00 11/29/17 04:01 (Chlorhexidine 2% Cloth) 3 pack UNSCH PRN TOPICAL 11/24/17 22:30 11/29/17 22:15 Ceftriaxone Sodium 2000 mg/ Sodium Chloride 100 ml @ 200 mls/hr Q24H IV 11/25/17 01:30 11/26/17 02:39 (Protonix) 40 mg DAILY PO 11/25/17 09:00 11/26/17 08:10 (K-Lyte Cl Eff) 25 meq Q12HR NG 11/25/17 06:00 11/26/17 08:10 Potassium Chloride/Sodium Chloride 1,000 ml @ 42 mls/hr [id number] IV 11/25/17 01:45 11/25/17 02:05 (Lactulose Liq) 30 ml TID PO 11/26/17 13:00 (TRENtal SR) 400 mg Q8HR PO 11/26/17 14:00 Assessment and Plan Problem List: (1) Liver cirrhosis, alcoholic ICD Codes: K70.30 - Alcoholic cirrhosis of liver without ascites Status: Chronic Plan: Monitor C&S S/P paracentesis (2) Hypokalemia ICD Codes: E87.6 - Hypokalemia Status: Acute Plan: Increase PO K as patient is refusing IV KCL (3) Chronic alcohol use ICD Codes: Z72.89 - Other problems related to lifestyle Status: Chronic Plan: Palliatve care consulted to eval patient with ESLD cont to consume ETOH (4) Portal hypertension ICD Codes: K76.6 - Portal hypertension Status: Chronic Plan: F/U GI recommendations Assessment and Plan Outcome grim as patient cont to consume ETOH with ESLD. F/U pending ascitic fluid cx and Palliative Care recommendation. Discussed Condition With Patient Discharge Planning Home when stable Problem Qualifiers (1) Liver cirrhosis, alcoholic: Qualified Codes: K70.31 - Alcoholic cirrhosis of liver with ascites Colt Oliveros Nov 26, 2017 13:24
[2017-11-26] MEDS ORDERED: POTASSIUM CHLORIDE 10 MEQ CONTROLLED RELEASE TAB PO ONE (13:30)
[2017-11-26] MEDS: PENTOXIFYLLINE 400 MG CONTROLLED RELEASE TAB PO SCH ×2 (14:52→21:39)
[2017-11-26 15:12] LABS: AMYLASE BODY FLUID 61 U/L; AMYLASE BODY FLUID TYPE PERITONEAL
[2017-11-27] VITALS (12 sets, daily range): BP systolic 115–141; BP diastolic 67–94; PULSE 104–113; RESP 18–33; TEMP 97.5–98.1; O2SAT 92–98
[2017-11-27] MEDS: cefTRIAXone INJ 2,000 MG in SODIUM CHLORIDE 0.9% INJ 100 ML IV SCH (02:23)
[2017-11-27] MEDS: CHLORHEXIDINE GLUCONATE 2 % 1 PACK (2 CLOTHS)(taper/protocol) TOPICAL SCH (04:00)
[2017-11-27] MEDS: PENTOXIFYLLINE 400 MG CONTROLLED RELEASE TAB PO SCH ×3 (05:36→21:40)
[2017-11-27] MEDS: 1/2 NS + KCL 20 MEQ INJ 1,000 ML IV SCH (05:37)
[2017-11-27 06:02] LABS: AUTOMATED NEUTROPHIL # 23.7 TH/MM3 (1.8-7.7); BASOPHIL # 0.1 TH/MM3 (0-0.2); BASOPHIL % 0.3 % (0.0-2.0); EOSINOPHIL # 0.5 TH/MM3 (0-0.4); EOSINOPHIL % 1.7 % (0.0-4.0); HEMATOCRIT 36.3 % (39.0-51.0); HEMOGLOBIN 12.9 GM/DL (13.0-17.0); LYMPH % 5.5 % (9.0-44.0); LYMPHOCYTE # 1.5 TH/MM3 (1.0-4.8); MEAN CELL VOLUME 100.9 FL (80.0-100.0); MEAN CORPUSCULAR HEMOGLOBIN 35.9 PG (27.0-34.0); MEAN CORPUSCULAR HGB CONC 35.6 % (32.0-36.0); MEAN PLATELET VOLUME 8.5 FL (7.0-11.0); MONO % 8.7 % (0.0-8.0); MONOCYTE # 2.5 TH/MM3 (0-0.9); NEUT % 83.8 % (16.0-70.0); PLATELET COUNT 281 TH/MM3 (150-450); RED CELL DISTRIBUTION WIDTH 16.6 % (11.6-17.2); WHITE BLOOD COUNT 28.3 TH/MM3 (4.0-11.0)
[2017-11-27 06:03] LABS: INTERNATIONAL NORMALIZED RATIO 1.6 RATIO; PROTHROMBIN TIME - PATIENT 16.3 SEC (9.8-11.6)
[2017-11-27 06:38] LABS: ALT (GPT) 31 U/L (12-78); AST (GOT) 64 U/L (15-37)
[2017-11-27 07:19] LABS: ALBUMIN 1.7 GM/DL (3.4-5.0); ALKALINE PHOSPHATASE 305 U/L (45-117); BICARBONATE 18.7 MEQ/L (21.0-32.0); CHLORIDE 101 MEQ/L (98-107); CREATININE 1.07 MG/DL (0.60-1.30); GLOMERULAR FILTRATION RATE 77 ML/MIN (>89); GLUCOSE,RANDOM 79 MG/DL (74-106); SODIUM (NA) 132 MEQ/L (136-145); TOTAL PROTEIN 6.9 GM/DL (6.4-8.2)
[2017-11-27 07:40] LABS: BLOOD UREA NITROGEN 18 MG/DL (7-18); TOTAL BILIRUBIN ADULT 23.4 MG/DL (0.2-1.0)
[2017-11-27 08:19] LABS: BASOPHILS 1 % (0-2); LYMPHOCYTES 7 % (9-44); MONOCYTES 7 % (0-8); NEUTROPHIL # MANUAL DIFF 24.1 TH/MM3 (1.8-7.7); POLYS (SEG NEUTROPHILS) 85 % (16-70)
--- NOTE | 2017-11-27 08:20 | HHI.CCPN ---
Subjective Remarks/Hospital Course 11/24: 37-year-old male with a history of alcoholic cirrhosis and end-stage liver disease who presents with worsening abdominal cramps. Per report he continues to drink alcohol. The emergency department he was found to have leukocytosis. He is admitted for workup for his abdominal pain. He is slightly somnolent and difficult to get a full history. He denies fever, chills. Denies chest pain, shortness of breath. Only symptom is abdominal pain. Denies nausea, vomiting, diarrhea, constipation. Denies bright red blood per rectum or hematemesis or dark tarry stools. 3/2: Resting comfortably in bed not in any acute distress. s/p paracentesis. 11/26: Resting comfortably not in any acute distress. 11/27: Resting comfortably in bed not in any acute distress. He shortness of breath. Has minimal abdominal pain. Tolerating by mouth diet Objective Vital Signs Date Time Temp Pulse Resp B/P (MAP) Pulse Ox O2 Delivery O2 Flow Rate FiO2 11/27/17 06:00 106 11/27/17 04:00 98.1 26 141/94 (110) 97 11/24/17 20:36 Nasal Cannula 2.00 Intake and Output 11/27/17 11/27/17 11/28/17 08:00 16:00 00:00 Intake Total 1841 ml Output Total 1150 ml Balance 691 ml Result Diagram: 11/27/17 0536 11/27/17 0536 Imaging Last Impressions Chest X-Ray 11/24/17 0000 Signed Impressions: Service Date/Time: November 22:30 - CONCLUSION: Left basilar streakiness consistent with atelectasis and/or mild infiltrate. Elevation of the right hemidiaphragm. Eddie Monteiro MD Abdomen/Pelvis CT 11/24/17 0000 Signed Impressions: Service Date/Time: November 22:17 - CONCLUSION: Moderate amount of ascites. Hepatomegaly. Apparent intra-abdominal varices which are stable compared to previous examination. Bibasilar atelectasis. Eddie Monteiro MD Objective Remarks GENERAL: Young male who appears older than stated age, lying in bed. Very noticeably jaundice HEENT: Normocephalic. Atraumatic. Pupils equal, round, reactive, conjugate. Sclerae icteric. Mucous membranes are moist NECK: Trachea is midline. There is no JVD. CHEST: Equal chest rise. Nasal cannula oxygen. CARDIOVASCULAR: Normal rate, regular rhythm. Sinus by telemetry ABDOMEN: Soft, nontender, distended. No guarding. Positive fluid wave MUSCULOSKELETAL: Pulses 2+. 1+ peripheral edema. NEUROLOGICAL: RASS -1. Follows commands. A/P Assessment and Plan Assessment: 37-year-old male with end-stage liver disease and acutely worsening of his liver function along with worsening abdominal pain. With his leukocytosis, spontaneous pectoral peritonitis would be of high clinical concern. Agree with having interventional radiology perform diagnostic paracentesis. Covered with antibiotics: Cefotaxime is not currently available in our pharmacy due to national shortage. Instead placed on Rocephin 2 g IV every 24 hours. Active problems: End-stage liver disease Alcoholic cirrhosis Acute abdominal pain Possible spontaneous bacterial peritonitis Plan: Daily coags, CMP to trend liver function. Close monitoring of urine output Rocephin 2 g IV every 24 hours s/p paracentesis GI consult noted Blood cultures 2 ordered on 11/25. [facility] protocol Watch for withdrawal symptoms Avoid long-acting sedatives Trend ammonia Oxycodone as needed for abdominal pain: Hydrocodone, oxycodone, Dilaudid, and fentanyl are preferred narcotic pain options as they have the best pharmacokinetic profile in end-stage liver disease. Remains hemodynamically stable currently. Critical care will sign off at this time. Transfer out of ICU. Nathaniel Whittaker MD Nov 27, 2017 08:20
[2017-11-27] MEDS: PANTOPRAZOLE SOD 40 MG DELAYED RELEASE TAB PO SCH (08:36)
[2017-11-27] MEDS: SODIUM CHLORIDE 0.9% FLUSH 10 ML FLUSH IV FLUSH SCH ×2 (08:37→21:39)
[2017-11-27] MEDS: POTASSIUM CHLORIDE 25 MEQ EFFERVESCENT TAB NG SCH ×2 (08:37→21:44)
[2017-11-27] MEDS: ONDANSETRON ODT 4 MG TAB PO PRN (08:41)
[2017-11-27] MEDS: LACTULOSE SYRUP 20 GM/30 ML CUP PO SCH ×3 (08:41→17:55)
[2017-11-27] MEDS: DOCUSATE SODIUM 50 MG/SENNA 8.6 MG TAB PO SCH ×2 (08:41→21:40)
--- NOTE | 2017-11-27 14:27 | HHI.PR ---
Subjective Remarks S/P paracentesis and cultures are negative so far. He is for transfer out of ICU per critical care when bed available. He is refusing IV Kcl and PO lactulose. Objective Vital Signs Date Time Temp Pulse Resp B/P (MAP) Pulse Ox O2 Delivery O2 Flow Rate FiO2 11/27/17 14:00 106 11/27/17 12:00 97.5 105 32 124/67 (86) 94 11/27/17 12:00 105 11/27/17 10:00 104 11/27/17 08:00 113 11/27/17 08:00 97.6 106 33 126/77 (93) 92 11/27/17 06:00 106 11/27/17 04:00 98.1 104 26 141/94 (110) 97 11/27/17 04:00 104 11/27/17 02:00 111 11/27/17 00:00 112 11/27/17 00:00 98.1 112 31 132/81 (98) 97 11/26/17 22:00 107 11/26/17 20:00 98.4 104 28 135/76 94 11/26/17 20:00 104 11/26/17 18:00 108 11/26/17 16:00 104 11/26/17 16:00 98.3 104 24 141/87 (105) 93 11/26/17 16:00 107 I/O 11/26/17 11/26/17 11/26/17 11/27/17 11/27/17 11/27/17 07:00 15:00 23:00 07:00 15:00 23:00 Intake Total 100 ml 1200 ml 1841 ml Output Total 350 ml 1000 ml 1150 ml Balance -250 ml 200 ml 691 ml Intake Oral 1200 ml IV Total 100 ml 1841 ml Output Urine Total 350 ml 1000 ml 1150 ml # Bowel Movements 0 0 0 Result Diagram: 11/27/17 0536 11/27/17 0536 Procedures S/P paracentesis today Objective Remarks He C/O cramping but is cont to refuse IV KCL. Palliative care consulted due to ETOH cirrhosis Medications and IVs Current Medications Medications (Trade) Dose Ordered Sig/Virgil Route Start Time Stop Time Status Last Admin (Dulcolax Supp) 10 mg DAILY PRN RECTAL 11/24/17 14:00 (Lactulose Liq) 30 ml DAILY PRN PO 11/24/17 14:00 (Atarax) 25 mg Q6H PRN PO 11/24/17 15:15 11/26/17 21:39 (Zofran Odt) 4 mg Q6H PRN PO 11/24/17 15:15 11/27/17 08:41 (Narcan Inj) 0.4 mg UNSCH PRN IV PUSH 11/24/17 16:45 (Katie-Colace) 1 tab BID PO 11/24/17 21:00 (Milk Of Magnesia Liq) 30 ml Q12H PRN PO 11/24/17 16:45 (Senokot) 17.2 mg Q12H PRN PO 11/24/17 16:45 (NS Flush) 2 ml UNSCH PRN IV FLUSH 11/24/17 16:45 (NS Flush) 2 ml BID IV FLUSH 11/24/17 21:00 11/27/17 08:37 (Romazicon Inj) 0.2 mg Q1M PRN IV PUSH 11/24/17 16:45 (Ativan) 1 mg Q4H PRN PO 11/24/17 16:45 (Ativan Inj) 1 mg Q4H PRN IV PUSH 11/24/17 16:45 (Ativan) 2 mg Q2H PRN PO 11/24/17 16:45 (Ativan Inj) 2 mg Q2H PRN IV PUSH 11/24/17 16:45 11/25/17 21:58 (Ativan Inj) 2 mg Q1H PRN IV PUSH 11/24/17 16:45 (Ativan Inj) 2 mg Q15M PRN IV PUSH 11/24/17 16:45 (Roxicodone) 5 mg Q4H PRN PO 11/24/17 21:15 11/27/17 12:29 Miscellaneous Information Patient in critical care unit? Ass... Q361D .XX 11/24/17 22:30 (Chlorhexidine 2% Cloth) 3 pack DAILY@04 TOPICAL 11/25/17 04:00 11/29/17 04:01 (Chlorhexidine 2% Cloth) 3 pack UNSCH PRN TOPICAL 11/24/17 22:30 11/29/17 22:15 Ceftriaxone Sodium 2000 mg/ Sodium Chloride 100 ml @ 200 mls/hr Q24H IV 11/25/17 01:30 11/27/17 02:23 (Protonix) 40 mg DAILY PO 11/25/17 09:00 11/27/17 08:36 (K-Lyte Cl Eff) 25 meq Q12HR NG 11/25/17 06:00 11/27/17 08:37 Potassium Chloride/Sodium Chloride 1,000 ml @ 42 mls/hr [id number] IV 11/25/17 01:45 11/27/17 05:37 (Lactulose Liq) 30 ml TID PO 11/26/17 13:00 11/27/17 12:29 (TRENtal SR) 400 mg Q8HR PO 11/26/17 14:00 11/27/17 12:29 (SoluMEDROL INJ) 40 mg Q12H IV PUSH 11/27/17 14:00 Assessment and Plan Problem List: (1) Liver cirrhosis, alcoholic ICD Codes: K70.30 - Alcoholic cirrhosis of liver without ascites Status: Chronic Plan: Monitor C&S S/P paracentesis (2) Hypokalemia ICD Codes: E87.6 - Hypokalemia Status: Acute Plan: Increased PO K as patient is refusing IV KCL; now near normal (3) Chronic alcohol use ICD Codes: Z72.89 - Other problems related to lifestyle Status: Chronic Plan: Palliative care consulted to eval patient with ESLD cont to consume ETOH. GI following. (4) Portal hypertension ICD Codes: K76.6 - Portal hypertension Status: Chronic Plan: F/U GI recommendations Assessment and Plan [place] is grim as patient cont to consume ETOH with ESLD and is refusing some therapy including IV KCL and Lactulose. F/U pending ascitic fluid cx which is preliminary NG. Palliative Care consult is pending. Discussed Condition With Patient Discharge Planning Home when cleared by GI Problem Qualifiers (1) Liver cirrhosis, alcoholic: Qualified Codes: K70.31 - Alcoholic cirrhosis of liver with ascites Colt Oliveros Nov 27, 2017 14:27
[2017-11-27] MEDS: methylPREDNISolone SOD SUCC 40 MG/1 ML VIAL IV PUSH SCH (15:57)
--- NOTE | 2017-11-27 16:20 | HHI.GIFU ---
Subjective Remarks Sleeping when entered room but responds to verbal stimuli Appears irritated, stating he wants to go home Normalize jaundice continues sclera and skin Afebrile (Lise Boland) Objective Vitals I&O Vital Signs Date Time Temp Pulse Resp B/P (MAP) Pulse Ox O2 Delivery O2 Flow Rate FiO2 11/27/17 14:00 106 11/27/17 12:00 97.5 105 32 124/67 (86) 94 11/27/17 12:00 105 11/27/17 10:00 104 11/27/17 08:00 113 11/27/17 08:00 97.6 106 33 126/77 (93) 92 11/27/17 06:00 106 11/27/17 04:00 98.1 104 26 141/94 (110) 97 11/27/17 04:00 104 11/27/17 02:00 111 11/27/17 00:00 112 11/27/17 00:00 98.1 112 31 132/81 (98) 97 11/26/17 22:00 107 11/26/17 20:00 98.4 104 28 135/76 94 11/26/17 20:00 104 11/26/17 18:00 108 I/O 11/26/17 11/26/17 11/26/17 11/27/17 11/27/17 11/27/17 07:00 15:00 23:00 07:00 15:00 23:00 Intake Total 100 ml 1200 ml 1841 ml Output Total 350 ml 1000 ml 1150 ml Balance -250 ml 200 ml 691 ml Intake Oral 1200 ml IV Total 100 ml 1841 ml Output Urine Total 350 ml 1000 ml 1150 ml # Bowel Movements 0 0 0 Laboratory Laboratory Tests Test 11/27/17 05:36 11/27/17 05:38 White Blood Count 28.3 Red Blood Count 3.60 Hemoglobin 12.9 Hematocrit 36.3 Mean Corpuscular Volume 100.9 Mean Corpuscular Hemoglobin 35.9 Mean Corpuscular Hemoglobin Concent 35.6 Red Cell Distribution Width 16.6 Platelet Count 281 Mean Platelet Volume 8.5 Neutrophils (%) (Auto) 83.8 Lymphocytes (%) (Auto) 5.5 Monocytes (%) (Auto) 8.7 Eosinophils (%) (Auto) 1.7 Basophils (%) (Auto) 0.3 Neutrophils # (Auto) 23.7 Lymphocytes # (Auto) 1.5 Monocytes # (Auto) 2.5 Eosinophils # (Auto) 0.5 Basophils # (Auto) 0.1 CBC Comment AUTO DIFF Differential Total Cells Counted 100 Neutrophils % (Manual) 85 Lymphocytes % 7 Monocytes % 7 Basophils % 1 Neutrophils # (Manual) 24.1 Differential Comment FINAL DIFF MANUAL Platelet Estimate NORMAL Platelet Morphology Comment NORMAL Blood Urea Nitrogen 18 Creatinine 1.07 Random Glucose 79 Total Protein 6.9 Albumin 1.7 Calcium Level 8.0 Alkaline Phosphatase 305 Aspartate Amino Transf (AST/SGOT) 64 Alanine Aminotransferase (ALT/SGPT) 31 Total Bilirubin 23.4 Sodium Level 132 Potassium Level 3.3 Chloride Level 101 Carbon Dioxide Level 18.7 Anion Gap 12 Estimat Glomerular Filtration Rate 77 Ammonia 77 Prothrombin Time 16.3 Prothromb Time International Ratio 1.6 Date/Time Source Procedure Growth Status 11/25/17 13:26 Blood Peripheral Aerobic Blood Culture - Preliminary NO GROWTH IN 2 DAYS Resulted 11/25/17 13:26 Blood Peripheral Anaerobic Blood Culture - Preliminary NO GROWTH IN 2 DAYS Resulted 11/25/17 10:57 Fluid Peritoneal Fluid Gram Stain - Final Resulted 11/25/17 10:57 Fluid Peritoneal Fluid Body Fluid Culture - Preliminary NO GROWTH IN 48 HOURS. Resulted Imaging Last Impressions Cyst Biopsy Asp-Paracentesis US 11/25/17 0000 Signed Impressions: Service Date/Time: Saturday, November 25, 2017 10:16 - CONCLUSION: Uncomplicated ultrasound guided paracentesis. Roly Brantley MD FACR Chest X-Ray 11/24/17 0000 Signed Impressions: Service Date/Time: November 22:30 - CONCLUSION: Left basilar streakiness consistent with atelectasis and/or mild infiltrate. Elevation of the right hemidiaphragm. Eddie Monteiro MD Abdomen/Pelvis CT 11/24/17 0000 Signed Impressions: Service Date/Time: November 22:17 - CONCLUSION: Moderate amount of ascites. Hepatomegaly. Apparent intra-abdominal varices which are stable compared to previous examination. Bibasilar atelectasis. Eddie Monteiro MD Physical Exam HEENT: PERRL; normocephalic; atraumatic; icteric sclera CHEST: Diminished breath sounds anteriorly and posteriorly CARDIAC: Tachycardia noted greater than 100 regular rhythm ABDOMEN: Large, Soft, distended, taut, no complaints of abdominal pain; bowel sounds soft EXTREMITIES: No clubbing, cyanosis, or edema. SKIN: Normal; no rash; significant jaundice. [employer]: lethargic but rousable and answers appropriately, anxious over hospital stay (Lise Boland) Assessment and Plan Plan Plan Alcoholic cirrhosis, fairly new diagnosis, according to the record has started initial labs and CT imaging. At this time patient continues to consume daily alcohol. First paracentesis done today 11/25/17 with 4.4 L were withdrawn. No albumin given. Patient does have some immediate abdominal pain and bloating relief. Current labs include bilirubin 24.3, LFTs 69 AST, ALT 34, alkaline phosphatase 279, ammonia level 52, PT INR 1.7, WBC count 25.2, hemoglobin 12.9. Records from previous admission on 11/12/17 show mitochondrial M2 AB 22.9 FINA screen negative, tissue transglutaminase IgA 2, cryoglobulin negative cryoglobulin and Cryocrit none detected. Smooth muscle antibody +1:20. , Hepatitis profile negative., 11/12/17, Ceruloplasmin 40, alpha-1 antitrypsin 251, albumin 1.9 on 11/24/17,. On 11/13/17 direct bilirubin 17.5, indirect 3.5. Abdominal cramping controlled now Abdominal CT on 11/24/17 showed moderate amount of ascites and hepatomegaly. 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 Basilar atelectasis. Portal hypertension, secondary to cirrhosis liver disease, abdominal varices appear to be stable for now no obvious bleeding Paracentesis performed on 11/25/17 uncomplicated ultrasound-guided 4.4 L removed 11/26/17 - still with soem mild diffuse abd TTP. mildly lethargic but rousable and answers appropriately. DF is 47, could benefit from pentoxifylline vs steroid therapy if no SBP peritoneal fluid cultures and cytology pending. WBC elevated. Peritoneal WBC 174. 11/27/17, patient appears resting, but answers to verbal stimuli. Anxious over hospital admission hoping to go home soon. PT INR 1.6, bilirubin remains 23.4, LFTs 64/31, ammonia level 77, states looser BM today. Continues to be on Solu- Medrol IV Plan - TID pentoxifylline - TID lactulose - Protonix - monitor labs - low sodium diet - cytology pending - ETOH cessation - further recs to follow, Supportive care to get better pt seen by myself and Dr Markham and this note is on his behalf (Lise Boland) Physician Comments Seen and examined with REINIER, solumederol added today after consultation with Dr. Whittaker. Monitor LFTs. (Tamia Markham MD) Lise Boland Nov 27, 2017 16:20 aTmia Markham MD Nov 27, 2017 16:41
[2017-11-27] MEDS: hydrOXYzine HCL 25 MG TAB PO PRN (21:40)
[2017-11-28] VITALS (9 sets, daily range): BP systolic 114–142; BP diastolic 63–78; PULSE 68–113; RESP 16–19; TEMP 97.5–98.4; O2SAT 95–98
[2017-11-28] MEDS: methylPREDNISolone SOD SUCC 40 MG/1 ML VIAL IV PUSH SCH ×2 (02:33→13:09)
[2017-11-28] MEDS: cefTRIAXone INJ 2,000 MG in SODIUM CHLORIDE 0.9% INJ 100 ML IV SCH (02:34)
[2017-11-28] MEDS: 1/2 NS + KCL 20 MEQ INJ 1,000 ML IV SCH (02:35)
[2017-11-28] MEDS: CHLORHEXIDINE GLUCONATE 2 % 1 PACK (2 CLOTHS)(taper/protocol) TOPICAL SCH (03:49)
[2017-11-28] MEDS: PENTOXIFYLLINE 400 MG CONTROLLED RELEASE TAB PO SCH ×3 (06:23→22:29)
[2017-11-28] MEDS: LACTULOSE SYRUP 20 GM/30 ML CUP PO SCH ×3 (09:00→17:13)
[2017-11-28] MEDS: hydrOXYzine HCL 25 MG TAB PO PRN ×3 (09:21→22:29)
[2017-11-28] MEDS: DOCUSATE SODIUM 50 MG/SENNA 8.6 MG TAB PO SCH ×2 (09:22→22:30)
[2017-11-28] MEDS: POTASSIUM CHLORIDE 25 MEQ EFFERVESCENT TAB NG SCH ×2 (09:22→22:29)
[2017-11-28] MEDS: PANTOPRAZOLE SOD 40 MG DELAYED RELEASE TAB PO SCH (09:25)
[2017-11-28] MEDS: SODIUM CHLORIDE 0.9% FLUSH 10 ML FLUSH IV FLUSH SCH ×2 (09:25→22:30)
--- NOTE | 2017-11-28 10:38 | HHI.PR ---
Subjective Remarks In bed, no apparent distress, annoyed with visit. Objective Vital Signs Date Time Temp Pulse Resp B/P (MAP) Pulse Ox O2 Delivery O2 Flow Rate FiO2 11/28/17 08:00 97.7 102 16 114/78 (90) 98 11/28/17 05:26 97.5 98 18 142/76 (98) 96 11/28/17 03:48 18 11/28/17 00:55 113 11/28/17 00:25 97.5 101 18 130/63 (85) 97 11/28/17 00:07 101 11/27/17 21:30 107 11/27/17 20:13 97.5 111 18 117/78 (91) 98 11/27/17 18:00 108 11/27/17 16:00 97.6 104 25 115/75 (88) 94 11/27/17 16:00 98.1 104 25 115/75 (88) 94 11/27/17 16:00 104 11/27/17 14:00 106 11/27/17 12:00 97.5 105 32 124/67 (86) 94 11/27/17 12:00 105 I/O 11/27/17 11/27/17 11/27/17 11/28/17 11/28/17 11/28/17 07:00 15:00 23:00 07:00 15:00 23:00 Intake Total 1841 ml 960 ml Output Total 1150 ml 900 ml Balance 691 ml 60 ml Intake Oral 960 ml IV Total 1841 ml Output Urine Total 1150 ml 900 ml # Bowel Movements 0 1 Result Diagram: 11/27/17 0536 11/27/17 0536 Other Results Microbiology Date/Time Source Procedure Growth Status 11/25/17 13:26 Blood Peripheral Aerobic Blood Culture - Preliminary NO GROWTH IN 2 DAYS Resulted 11/25/17 13:26 Blood Peripheral Anaerobic Blood Culture - Preliminary NO GROWTH IN 2 DAYS Resulted 11/25/17 13:22 Blood Peripheral Aerobic Blood Culture - Preliminary NO GROWTH IN 2 DAYS Resulted 11/25/17 13:22 Blood Peripheral Anaerobic Blood Culture - Preliminary NO GROWTH IN 2 DAYS Resulted 11/25/17 10:57 Fluid Peritoneal Fluid Gram Stain - Final Complete 11/25/17 10:57 Fluid Peritoneal Fluid Body Fluid Culture - Final NO GROWTH IN 72 HRS.--AEROBICALLY OR ... Complete Objective Remarks GENERAL: This is a well-nourished, well-developed patient, aggravated with visit SKIN: Jaundice EYES: Pupils equal round and reactive. positive scleral icterus. No injection or drainage. ENT: Nose without bleeding, purulent drainage. NECK: Trachea midline. No JVD CARDIOVASCULAR: Regular rate and rhythm without murmurs, gallops, or rubs. RESPIRATORY: Clear to auscultation. Breath sounds equal bilaterally. No wheezes , rales, or rhonchi. GASTROINTESTINAL: Abdomen soft, non-tender, MUSCULOSKELETAL: Extremities without clubbing, cyanosis, or edema. NEUROLOGICAL: Awake and alert Laboratory Medications and IVs Current Medications Medications (Trade) Dose Ordered Sig/Virgil Route Start Time Stop Time Status Last Admin (Dulcolax Supp) 10 mg DAILY PRN RECTAL 11/24/17 14:00 (Lactulose Liq) 30 ml DAILY PRN PO 11/24/17 14:00 11/27/17 21:42 (Atarax) 25 mg Q6H PRN PO 11/24/17 15:15 11/28/17 09:21 (Zofran Odt) 4 mg Q6H PRN PO 11/24/17 15:15 11/27/17 08:41 (Narcan Inj) 0.4 mg UNSCH PRN IV PUSH 11/24/17 16:45 (Katie-Colace) 1 tab BID PO 11/24/17 21:00 11/28/17 09:22 (Milk Of Magnesia Liq) 30 ml Q12H PRN PO 11/24/17 16:45 (Senokot) 17.2 mg Q12H PRN PO 11/24/17 16:45 (NS Flush) 2 ml UNSCH PRN IV FLUSH 11/24/17 16:45 (NS Flush) 2 ml BID IV FLUSH 11/24/17 21:00 11/28/17 09:25 (Romazicon Inj) 0.2 mg Q1M PRN IV PUSH 11/24/17 16:45 (Ativan) 1 mg Q4H PRN PO 11/24/17 16:45 (Ativan Inj) 1 mg Q4H PRN IV PUSH 11/24/17 16:45 (Ativan) 2 mg Q2H PRN PO 11/24/17 16:45 (Ativan Inj) 2 mg Q2H PRN IV PUSH 11/24/17 16:45 11/25/17 21:58 (Ativan Inj) 2 mg Q1H PRN IV PUSH 11/24/17 16:45 (Ativan Inj) 2 mg Q15M PRN IV PUSH 11/24/17 16:45 (Roxicodone) 5 mg Q4H PRN PO 11/24/17 21:15 11/28/17 06:24 Miscellaneous Information Patient in critical care unit? Ass... Q361D .XX 11/24/17 22:30 (Chlorhexidine 2% Cloth) 3 pack DAILY@04 TOPICAL 11/25/17 04:00 11/29/17 04:01 (Chlorhexidine 2% Cloth) 3 pack UNSCH PRN TOPICAL 11/24/17 22:30 11/29/17 22:15 Ceftriaxone Sodium 2000 mg/ Sodium Chloride 100 ml @ 200 mls/hr Q24H IV 11/25/17 01:30 11/28/17 02:34 (Protonix) 40 mg DAILY PO 11/25/17 09:00 11/28/17 09:25 (K-Lyte Cl Eff) 25 meq Q12HR NG 11/25/17 06:00 11/28/17 09:22 Potassium Chloride/Sodium Chloride 1,000 ml @ 42 mls/hr [id number] IV 11/25/17 01:45 11/28/17 02:35 (Lactulose Liq) 30 ml TID PO 11/26/17 13:00 11/27/17 17:55 (TRENtal SR) 400 mg Q8HR PO 11/26/17 14:00 11/28/17 06:23 (SoluMEDROL INJ) 40 mg Q12H IV PUSH 11/27/17 14:00 11/28/17 02:33 Assessment and Plan Problem List: (1) Liver cirrhosis, alcoholic ICD Codes: K70.30 - Alcoholic cirrhosis of liver without ascites Status: Chronic Plan: Gi following, cont to refuse lactulose, and Potassium (2) Hypokalemia ICD Codes: E87.6 - Hypokalemia Status: Acute Plan: potassium 3.3 today, monitor bmp Refusing IV K (3) Chronic alcohol use ICD Codes: Z72.89 - Other problems related to lifestyle Status: Chronic Plan: On CIWA protocol. Assessment and Plan Palliative consult, Patient cont to drink, refuse lactulose, potassium. Problem Qualifiers (1) Liver cirrhosis, alcoholic: Qualified Codes: K70.31 - Alcoholic cirrhosis of liver with ascites Shayy Alonzo Nov 28, 2017 10:38
--- NOTE | 2017-11-28 12:39 | HHI.GIFU ---
Subjective Remarks Pt resting in bed, napping. lethargic. Refusing lactulose. Offers no other complaints. (Alice Campbell) Objective Vitals I&O Vital Signs Date Time Temp Pulse Resp B/P (MAP) Pulse Ox O2 Delivery O2 Flow Rate FiO2 11/28/17 08:00 97.7 102 16 114/78 (90) 98 11/28/17 05:26 97.5 98 18 142/76 (98) 96 11/28/17 03:48 18 11/28/17 00:55 113 11/28/17 00:25 97.5 101 18 130/63 (85) 97 11/28/17 00:07 101 11/27/17 21:30 107 11/27/17 20:13 97.5 111 18 117/78 (91) 98 11/27/17 18:00 108 11/27/17 16:00 97.6 104 25 115/75 (88) 94 11/27/17 16:00 98.1 104 25 115/75 (88) 94 11/27/17 16:00 104 11/27/17 14:00 106 I/O 11/27/17 11/27/17 11/27/17 11/28/17 11/28/17 11/28/17 07:00 15:00 23:00 07:00 15:00 23:00 Intake Total 1841 ml 960 ml Output Total 1150 ml 900 ml Balance 691 ml 60 ml Intake Oral 960 ml IV Total 1841 ml Output Urine Total 1150 ml 900 ml # Bowel Movements 0 1 Laboratory Date/Time Source Procedure Growth Status 11/25/17 13:26 Blood Peripheral Aerobic Blood Culture - Preliminary NO GROWTH IN 3 DAYS Resulted 11/25/17 13:26 Blood Peripheral Anaerobic Blood Culture - Preliminary NO GROWTH IN 3 DAYS Resulted 11/25/17 10:57 Fluid Peritoneal Fluid Gram Stain - Final Complete 11/25/17 10:57 Fluid Peritoneal Fluid Body Fluid Culture - Final NO GROWTH IN 72 HRS.--AEROBICALLY OR ... Complete Imaging Last Impressions Cyst Biopsy Asp-Paracentesis US 11/25/17 0000 Signed Impressions: Service Date/Time: Saturday, November 25, 2017 10:16 - CONCLUSION: Uncomplicated ultrasound guided paracentesis. Roly Brantley MD FACR Chest X-Ray 11/24/17 0000 Signed Impressions: Service Date/Time: November 22:30 - CONCLUSION: Left basilar streakiness consistent with atelectasis and/or mild infiltrate. Elevation of the right hemidiaphragm. Eddie Monteiro MD Abdomen/Pelvis CT 11/24/17 0000 Signed Impressions: Service Date/Time: November 22:17 - CONCLUSION: Moderate amount of ascites. Hepatomegaly. Apparent intra-abdominal varices which are stable compared to previous examination. Bibasilar atelectasis. Eddie Monteiro MD Physical Exam HEENT: PERRL; normocephalic; atraumatic; icteric CHEST: CTA CARDIAC: Tachycardia ABDOMEN: Soft, distended, nontender; bowel sounds soft EXTREMITIES: No clubbing, cyanosis, or edema. SKIN: Normal; no rash; significant jaundice. DISTRIBUTION LEAD: lethargic (Alice Campbell) Assessment and Plan Plan Plan Alcoholic cirrhosis, fairly new diagnosis, according to the record has started initial labs and CT imaging. At this time patient continues to consume daily alcohol. First paracentesis done today 11/25/17 with 4.4 L were withdrawn. No albumin given. Patient does have some immediate abdominal pain and bloating relief. Current labs include bilirubin 24.3, LFTs 69 AST, ALT 34, alkaline phosphatase 279, ammonia level 52, PT INR 1.7, WBC count 25.2, hemoglobin 12.9. Records from previous admission on 11/12/17 show mitochondrial M2 AB 22.9 FINA screen negative, tissue transglutaminase IgA 2, cryoglobulin negative cryoglobulin and Cryocrit none detected. Smooth muscle antibody +1:20. , Hepatitis profile negative., 11/12/17, Ceruloplasmin 40, alpha-1 antitrypsin 251, albumin 1.9 on 11/24/17,. On 11/13/17 direct bilirubin 17.5, indirect 3.5. Abdominal cramping controlled now Abdominal CT on 11/24/17 showed moderate amount of ascites and hepatomegaly. 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 Basilar atelectasis. Portal hypertension, secondary to cirrhosis liver disease, abdominal varices appear to be stable for now no obvious bleeding Paracentesis performed on 11/25/17 uncomplicated ultrasound-guided 4.4 L removed 11/26/17 - still with soem mild diffuse abd TTP. mildly lethargic but rousable and answers appropriately. DF is 47, could benefit from pentoxifylline vs steroid therapy if no SBP peritoneal fluid cultures and cytology pending. WBC elevated. Peritoneal WBC 174. 11/27/17, patient appears resting, but answers to verbal stimuli. Anxious over hospital admission hoping to go home soon. PT INR 1.6, bilirubin remains 23.4, LFTs 64/31, ammonia level 77, states looser BM today. Continues to be on Solu- Medrol IV 11/28/17 mildly lethargic, refusing lactulose d/t s/e. LFTs not much change, elevated. palliative care consult pending. Plan - TID pentoxifylline - start rifaximin 550mg BID - continue steroids - Protonix - monitor labs - low sodium diet - await peritoneal fluid cytology - ETOH cessation pt seen by myself and Dr Patel and this note is on his behalf (Alice Campbell) Physician Comments Seen with corey Becker as above, will follow up with you. (Arely Patel MD) Alice Campbell Nov 28, 2017 12:39 Arely Patel MD Nov 28, 2017 14:24
--- NOTE | 2017-11-28 14:25 | PD.CONS ---
Consult Service Palliative Care Consult Requested By Shayy Alonzo NP Primary Care Physician Jose Hunter, DO Reason for Consultation a. To assist with evaluation and management of symptoms including: Pain, pruritus b. To assist medical decision maker(s) with: better understanding of current medical conditions; weighing benefits/burdens of medical treatment options; making medical treatment decisions. HPI History of Present Illness This is a 37-year-old male with a long history of substance abuse who presented to the emergency room with a complaint of abdominal pain, fatigue and malaise. This is his second admission in a month for gastrointestinal symptoms. He was seen in [place] 11/11/17 because his friends told him he was jaundiced. During that admission he underwent CT of the abdomen and pelvis with contrast showing a very abnormal appearance of the liver which was diffusely enlarged somewhat heterogeneous with the appearance of multiple mass lesions, the largest of which was identified medially in the right hepatic lobe measuring 4.8 cm in diameter with mild ascites. It also showed signs of portal hypertension with spontaneous portosystemic shunt from the splenic vein to the IVC in combination with multiple prominent lymph nodes juxtaposed between the iron hepatis and pancreas, concerning for hepatocellular carcinoma with metastasis. Gallbladder lumen was decompressed and the gallbladder wall markedly thickened. MRI of the abdomen with and without contrast showed hepatomegaly with steatosis and morphology suggesting cirrhosis with no definite liver lesion identified. The areas described on recent CT appear to represent asymmetric, more severe, focal fat deposition. Portal hypertension including splenomegaly, small volume of ascites and splenorenal shunt were noted with persistent gallbladder wall edema. He was seen by gastroenterology and oncology during that visit. No biopsy was done as the surgeon could not identify a mass to biopsy. Tumor markers were ordered to include CA 199 antigen , carcinoembryonic antigen, tumor marker AFP, ceruloplasmin and alpha-1 antitrypsin. Alpha 1 antitrypsin was mildly elevated at 251 (100-190) and ceruloplasmin was mildly elevated at 40 (18-36). The other tumor markers were within normal range. ED course: * Laboratory: WBC 23.0, hemoglobin 13.3, hematocrit 37.2, platelets 289, sodium 132, potassium 2.7, BUN 11, creatinine 1.02. Total bilirubin 23.4, AST 69, ALT 34, alkaline phosphatase 279, LDH 131, total protein 7.1, albumin 1.9, PT 16.3, INR 1.6, ethyl alcohol 5. * Radiology:Chest x-ray showed left basilar streakiness noted consistent with atelectasis and/or mild infiltrate with elevation of the right hemidiaphragm. CT of the abdomen and pelvis without contrast showed moderate amount of ascites , hepatomegaly and apparent intra-abdominal varices, stable compared to previous examination. He has since undergone a paracentesis with removal of 4400 cc fluid. Final pathology pending. He remains jaundiced with abdominal discomfort. He has been refusing lactulose and IV fluid containing potassium. This was discussed with the patient to explain the need for the medication, the risks of hyperammonemia to include coma and . We also discussed alternative medications to control that includes the expense of that medication and patient agreed that he would continue to take the lactulose. He did accept the 1 PM dose from the nurse. He remains severely jaundiced with a bilirubin of 23.4. He states he wants to go home because he has to clean up his condo before his family returns home. Patient lives at home with his parents to assist in the care of his grandfather. . Function/Cognitive Trajectory He notes difficulty maintaining alertness. He notes some increasing confusion and fatigue. He continues to work but is having more difficulty functioning due to the mental lethargy and fatigue. . Review of Systems ROS Limitations: Other (Hyperammonemia) Constitutional: COMPLAINS OF: Fatigue, Weight loss, Change in appetite, Pain Endocrine: DENIES: Heat/cold intolerance, Polydipsia, Polyuria, Polyphagia Ears, nose, mouth, throat: DENIES: Tinnitus, Hearing loss, Vertigo, Nasal discharge, Oral lesions, Throat pain, Hoarseness, Ear Pain, Running Nose, Epistaxis, Sinus Pain, Toothache, Odynophagia Respiratory: DENIES: Apneas, Cough, Snoring, Wheezing, Hemoptysis, Sputum production, Shortness of breath Cardiovascular: DENIES: Chest pain, Palpitations, Syncope, Dyspnea on Exertion , PND, Lower Extremity Edema, Orthopnea, Claudication Gastrointestinal: COMPLAINS OF: Abdominal pain, Diarrhea, Bloating Genitourinary: DENIES: Sexual dysfunction, Urinary frequency, Urinary incontinence, Urgency, Hematuria, Dysuria, Nocturia, Penile Discharge, Testicular Pain, Testicular Swelling, Hesitancy, Dribbling, Decreased stream Musculoskeletal: DENIES: Joint pain, Muscle aches, Stiffness, Joint Swelling, Back pain, Neck pain, Decreased range of motion Integumentary: COMPLAINS OF: Abnormal pigmentation Psychiatric: COMPLAINS OF: Mood changes Past Family Social History Coded Allergies: No Known Allergies (Verified , 11/24/17) Past Medical History Recent diagnosis of alcoholic liver cirrhosis History of asthma Daily alcohol usage . Past Surgical History Paracentesis today 2017, 4.4 L of fluid removed from his abdomen . Reported Medications Reported Meds & Active Scripts Active Reported Potassium Chloride ER (Potassium Chloride) 10 Meq Cap 10 Meq PO BID . Current Medications Medications (Trade) Dose Ordered Sig/Virgil Route Start Time Stop Time Status Last Admin (Dulcolax Supp) 10 mg DAILY PRN RECTAL 11/24/17 14:00 (Lactulose Liq) 30 ml DAILY PRN PO 11/24/17 14:00 11/27/17 21:42 (Atarax) 25 mg Q6H PRN PO 11/24/17 15:15 11/28/17 09:21 (Zofran Odt) 4 mg Q6H PRN PO 11/24/17 15:15 11/27/17 08:41 (Narcan Inj) 0.4 mg UNSCH PRN IV PUSH 11/24/17 16:45 (Katie-Colace) 1 tab BID PO 11/24/17 21:00 11/28/17 09:22 (Milk Of Magnesia Liq) 30 ml Q12H PRN PO 11/24/17 16:45 (Senokot) 17.2 mg Q12H PRN PO 11/24/17 16:45 (NS Flush) 2 ml UNSCH PRN IV FLUSH 11/24/17 16:45 (NS Flush) 2 ml BID IV FLUSH 11/24/17 21:00 11/28/17 09:25 (Romazicon Inj) 0.2 mg Q1M PRN IV PUSH 11/24/17 16:45 (Ativan) 1 mg Q4H PRN PO 11/24/17 16:45 (Ativan Inj) 1 mg Q4H PRN IV PUSH 11/24/17 16:45 (Ativan) 2 mg Q2H PRN PO 11/24/17 16:45 (Ativan Inj) 2 mg Q2H PRN IV PUSH 11/24/17 16:45 11/25/17 21:58 (Ativan Inj) 2 mg Q1H PRN IV PUSH 11/24/17 16:45 (Ativan Inj) 2 mg Q15M PRN IV PUSH 11/24/17 16:45 (Roxicodone) 5 mg Q4H PRN PO 11/24/17 21:15 11/28/17 06:24 Miscellaneous Information Patient in critical care unit? Ass... [id number] .XX 11/24/17 22:30 (Chlorhexidine 2% Cloth) 3 pack DAILY@04 TOPICAL 11/25/17 04:00 11/29/17 04:01 (Chlorhexidine 2% Cloth) 3 pack UNSCH PRN TOPICAL 11/24/17 22:30 11/29/17 22:15 Ceftriaxone Sodium 2000 mg/ Sodium Chloride 100 ml @ 200 mls/hr Q24H IV 11/25/17 01:30 11/28/17 02:34 (Protonix) 40 mg DAILY PO 11/25/17 09:00 11/28/17 09:25 (K-Lyte Cl Eff) 25 meq Q12HR NG 11/25/17 06:00 11/28/17 09:22 Potassium Chloride/Sodium Chloride 1,000 ml @ 42 mls/hr [id number] IV 11/25/17 01:45 11/28/17 02:35 (Lactulose Liq) 30 ml TID PO 11/26/17 13:00 11/28/17 13:08 (TRENtal SR) 400 mg Q8HR PO 11/26/17 14:00 11/28/17 13:09 (SoluMEDROL INJ) 40 mg Q12H IV PUSH 11/27/17 14:00 11/28/17 13:09 (Xifaxan) 550 mg BID PO 11/28/17 21:00 UNV . Family History Both parents are alive and well in their 60s. . Substance Use Tobacco: Smokes one quarter pack daily since he was a teenager. Alcohol: Drinks at least 1/2 L of bourbon daily Prescription med abuse: No history. Illicits: Admits to marijuana, denies IV drug use. Chart review indicates previous admission of remote IV drug use. . Psychosocial History He was born and completed high school in [place] then moved to [place] with his parents when they retired. He has never been or had children. He has never been in the armed service. He works at [employer]. . Spiritual/Cultural Factors Identifies with the Jewish ovidio. . Living Will: Never completed Health Care Surrogate: Copy in medical record Durable Power of School Administrator: Never completed Date completed: 11/28/2017. . Health Care Surrogate(s): He has elected his mother, Tanya العلي as his healthcare surrogate. . Documented care wishes: No Living Will available. . Today's verbally stated goals: He would not commit to alcohol cessation but states he is seeking "a high quality of life ". He is desirous of aggressive care to include intubation and resuscitation if necessary. . Family/friends goals: No family at bedside. . Ethical and Legal Issues None unnoted. . Physical Exam Vital Signs Date Time Temp Pulse Resp B/P (MAP) Pulse Ox O2 Delivery O2 Flow Rate FiO2 11/28/17 12:39 98.1 103 17 125/68 (87) 95 11/28/17 08:00 97.7 102 16 114/78 (90) 98 11/28/17 05:26 97.5 98 18 142/76 (98) 96 11/28/17 03:48 18 11/28/17 00:55 113 11/28/17 00:25 97.5 101 18 130/63 (85) 97 11/28/17 00:07 101 11/27/17 21:30 107 11/27/17 20:13 97.5 111 18 117/78 (91) 98 11/27/17 18:00 108 11/27/17 16:00 97.6 104 25 115/75 (88) 94 11/27/17 16:00 98.1 104 25 115/75 (88) 94 11/27/17 16:00 104 11/27/17 14:00 106 . Exam CONSTITUTIONAL/GENERAL: This is an adequately nourished patient, in no apparent distress. TUBES/LINES/DRAINS: PIV right wrist. SKIN: Significant jaundice, no rashes, or lesions. Ecchymoses on upper extremities. Multiple scabbed lesions seen on all extremities and across trunk. HEAD: Atraumatic. Normocephalic. EYES: Pupils equal and round and reactive. Extraocular motions intact. Scleral icterus. No injection or drainage. Fundi not examined. ENT: Hearing grossly normal. Nose without bleeding or purulent drainage. Throat without visible erythema, exudates, masses, or lesions. NECK: Trachea midline. Supple, nontender. No palpable thyroid enlargement or nodularity. CARDIOVASCULAR: Regular rate and rhythm, S1, S2 with 2/6 systolic ejection murmur, without gallops, or rubs. No JVD. Peripheral pulses symmetric. RESPIRATORY/CHEST: Symmetric, unlabored respirations. Clear to auscultation. Breath sounds equal bilaterally. No wheezes, rales, or rhonchi. GASTROINTESTINAL: Abdomen soft, distended, tender to palpation. Unable to evaluate organomegaly due to body habitus but noted on imaging studies to have hepatosplenomegaly. GENITOURINARY: Without palpable bladder distension. Voiding. MUSCULOSKELETAL: Extremities without clubbing, cyanosis, or edema. No joint tenderness or effusion noted. No calf tenderness. No mottling or clubbing. LYMPHATICS: No palpable cervical or supraclavicular adenopathy. NEUROLOGICAL: Arousable, dozes off during conversation, oriented. PSYCHIATRIC: No obvious anxiety/depression. no apparent hallucinations or other psychotic thought process. . Diagnostic Tests Laboratory Laboratory Tests Test 11/26/17 07:26 11/27/17 05:36 11/27/17 05:38 White Blood Count 25.0 TH/MM3 (4.0-11.0) 28.3 TH/MM3 (4.0-11.0) Red Blood Count 3.65 MIL/MM3 (4.50-5.90) 3.60 MIL/MM3 (4.50-5.90) Hemoglobin 13.0 GM/DL (13.0-17.0) 12.9 GM/DL (13.0-17.0) Hematocrit 37.0 % (39.0-51.0) 36.3 % (39.0-51.0) Mean Corpuscular Volume 101.5 FL (80.0-100.0) 100.9 FL (80.0-100.0) Mean Corpuscular Hemoglobin 35.7 PG (27.0-34.0) 35.9 PG (27.0-34.0) Mean Corpuscular Hemoglobin Concent 35.2 % (32.0-36.0) 35.6 % (32.0-36.0) Red Cell Distribution Width 16.7 % (11.6-17.2) 16.6 % (11.6-17.2) Platelet Count 277 TH/MM3 (150-450) 281 TH/MM3 (150-450) Mean Platelet Volume 8.6 FL (7.0-11.0) 8.5 FL (7.0-11.0) Neutrophils (%) (Auto) 80.7 % (16.0-70.0) 83.8 % (16.0-70.0) Lymphocytes (%) (Auto) 7.1 % (9.0-44.0) 5.5 % (9.0-44.0) Monocytes (%) (Auto) 9.3 % (0.0-8.0) 8.7 % (0.0-8.0) Eosinophils (%) (Auto) 2.3 % (0.0-4.0) 1.7 % (0.0-4.0) Basophils (%) (Auto) 0.6 % (0.0-2.0) 0.3 % (0.0-2.0) Neutrophils # (Auto) 20.2 TH/MM3 (1.8-7.7) 23.7 TH/MM3 (1.8-7.7) Lymphocytes # (Auto) 1.8 TH/MM3 (1.0-4.8) 1.5 TH/MM3 (1.0-4.8) Monocytes # (Auto) 2.3 TH/MM3 (0-0.9) 2.5 TH/MM3 (0-0.9) Eosinophils # (Auto) 0.6 TH/MM3 (0-0.4) 0.5 TH/MM3 (0-0.4) Basophils # (Auto) 0.2 TH/MM3 (0-0.2) 0.1 TH/MM3 (0-0.2) CBC Comment AUTO DIFF AUTO DIFF Differential Total Cells Counted 100 100 Neutrophils % (Manual) 73 % (16-70) 85 % (16-70) Band Neutrophils % 14 % (0-6) Lymphocytes % 7 % (9-44) 7 % (9-44) Monocytes % 4 % (0-8) 7 % (0-8) Eosinophils % 1 % (0-4) Neutrophils # (Manual) 22.0 TH/MM3 (1.8-7.7) 24.1 TH/MM3 (1.8-7.7) Metamyelocytes 1 % (0-1) Differential Comment FINAL DIFF MANUAL FINAL DIFF MANUAL Toxic Granulation 1+ (NORMAL) Platelet Estimate NORMAL (NORMAL) NORMAL (NORMAL) Platelet Morphology Comment NORMAL (NORMAL) NORMAL (NORMAL) Target Cells 1+ (NORMAL) Prothrombin Time 17.1 SEC (9.8-11.6) 16.3 SEC (9.8-11.6) Prothromb Time International Ratio 1.7 RATIO 1.6 RATIO Total Bilirubin 24.0 MG/DL (0.2-1.0) 23.4 MG/DL (0.2-1.0) Direct Bilirubin 20.4 MG/DL (0.0-0.2) Indirect Bilirubin 3.6 MG/DL (0.0-0.8) Aspartate Amino Transf (AST/SGOT) 68 U/L (15-37) 64 U/L (15-37) Alanine Aminotransferase (ALT/SGPT) 31 U/L (12-78) 31 U/L (12-78) Alkaline Phosphatase 300 U/L (45-117) 305 U/L (45-117) Ammonia 61 MCMOL/L (11-32) 77 MCMOL/L (11-32) Total Protein 7.0 GM/DL (6.4-8.2) 6.9 GM/DL (6.4-8.2) Albumin 1.8 GM/DL (3.4-5.0) 1.7 GM/DL (3.4-5.0) Basophils % 1 % (0-2) Blood Urea Nitrogen 18 MG/DL (7-18) Creatinine 1.07 MG/DL (0.60-1.30) Random Glucose 79 MG/DL (74-106) Calcium Level 8.0 MG/DL (8.5-10.1) Sodium Level 132 MEQ/L (136-145) Potassium Level 3.3 MEQ/L (3.5-5.1) Chloride Level 101 MEQ/L (98-107) Carbon Dioxide Level 18.7 MEQ/L (21.0-32.0) Anion Gap 12 MEQ/L (5-15) Estimat Glomerular Filtration Rate 77 ML/MIN (>89) . Result Diagram: 11/27/17 0536 11/27/17 0536 Microbiology Microbiology Date/Time Source Procedure Growth Status 11/25/17 13:26 Blood Peripheral Aerobic Blood Culture - Preliminary NO GROWTH IN 3 DAYS Resulted 11/25/17 13:26 Blood Peripheral Anaerobic Blood Culture - Preliminary NO GROWTH IN 3 DAYS Resulted 11/25/17 13:22 Blood Peripheral Aerobic Blood Culture - Preliminary NO GROWTH IN 3 DAYS Resulted 11/25/17 13:22 Blood Peripheral Anaerobic Blood Culture - Preliminary NO GROWTH IN 3 DAYS Resulted Imaging Last Impressions Cyst Biopsy Asp-Paracentesis US 11/25/17 0000 Signed Impressions: Service Date/Time: Saturday, November 25, 2017 10:16 - CONCLUSION: Uncomplicated ultrasound guided paracentesis. Roly Brantley MD FACR Chest X-Ray 11/24/17 0000 Signed Impressions: Service Date/Time: November 22:30 - CONCLUSION: Left basilar streakiness consistent with atelectasis and/or mild infiltrate. Elevation of the right hemidiaphragm. Eddie Monteiro MD Abdomen/Pelvis CT 11/24/17 0000 Signed Impressions: Service Date/Time: November 22:17 - CONCLUSION: Moderate amount of ascites. Hepatomegaly. Apparent intra-abdominal varices which are stable compared to previous examination. Bibasilar atelectasis. Eddie Monteiro MD . Procedures 11/25: Paracentesis . Patient/Family Conference Present at Family Conference: No family at bedside. Family Conference Location: Bedside Issues Discussed: * Palliative care role, purpose, approach * Additional medical, psychosocial, and spiritual history * Patients general health, functional status, and cognitive changes in the months leading up to the current hospitalization * Patient/family understanding of the current medical problems * Patient/family understanding of prognosis * Patients goals of care as best understood from advance directives and/or conversations and/or values * Current medical treatment options and benefits/burdens of those options * Likely scenarios comparing ongoing aggressive care with a transition to comfort measures only * Questions answered to the best of my ability * Palliative care contact information provided Assessment and Plan Disease Oriented Problem List: (1) Anasarca (2) Generalized weakness (3) Portal hypertension (4) Hypokalemia (5) Liver cirrhosis, alcoholic (6) Chronic alcohol use Symptom Scale: (1) Pain, generalized 0-10 Scale: 5 (2) Pruritus 0-10 Scale: 7 Pertinent Non-Medical Issues Psychosocial:He was born and completed high school in [place] then moved to [place] with his parents when they retired. He has never been or had children. He has never been in the armed service. He works at [employer]. Spiritual: Identifies with the Jewish ovidio. Legal: No legal issues noted. Ethical issues impacting care: No ethical issues noted. . Important Contacts Mother: Linda العلي Prognosis Prognosis is guarded. He has a long history of alcohol abuse with subsequent liver decline. His meld score is 25. He voices no intention for alcohol cessation. His ammonia continues to climb and he is somewhat noncompliant with medical therapy. He is likely to experience continued decline in complications with recurrent hospitalizations. . Code Status: Full Code Plan PLAN: Legal decision maker: At this time the patient is able to make his own decisions. As his physical condition declines this could be problematic in light of his hyperammonemia. He has named his mother healthcare surrogate but did not have an alternate suggestion. Goals: Aggressive CODE STATUS: FULL CODE SYMPTOMS: * Pain: He is receiving oxycodone, without Tylenol for his pain which he states makes it "feel numb". He is at risk for continued discomfort due to recurrent ascites, bedbound status and invasive lines. He is receiving 3-4 doses of 5 mg each daily with fair management of his pain. * Pruritus: He is receiving hydroxyzine, 25 mg every 6 hours as needed for itching. He is using 2-3 times daily. SUMMARY This is a 37-year-old male with a lifelong history of substance abuse to include heavy alcohol use. 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 His meld score is 25 and he is starting to have recurrent hospitalizations for the same problem. If he is unable to abstain from alcohol he cannot undergo liver transplant. He would be hospice appropriate if goals were consistent. Palliative care will continue to follow the patient during hospital course as condition evolves, to assist patient/decision-maker with understanding of their medical conditions, weighing benefits/burdens of treatment options, for clarification of goals of treatment. Additionally will assist with any symptoms of palliative concern. . Thank you for the opportunity to participate in the care of Mr. العلي. Attestation To help prompt me to consider important information that might be impacting today's encounter and assessment, information from prior notes written by myself or my colleagues may have been "brought forward" into today's note. My signature on this note, however, is an attestation that I personally performed the exam, history, and/or decision-making noted today, and, unless otherwise indicated, the interactions with patient, family, and staff as well as the review of records all occurred today. I also attest that the listed assessment and stated plan reflect my best clinical judgment today based on the combination of historical information, prior notes, and today's exam/ interactions. When time spent is documented, it refers only to time spent today by the signer, or if indicated, combined time spent today by collaborating physician/nurse practitioner. . Ariana Pedroza Nov 28, 2017 14:25
[2017-11-28] MEDS: RIFAXIMIN 550 MG TAB PO SCH (22:29)
[2017-11-29 00:30] VITALS: BP 120/67; PULSE 69; RESP 18; TEMP 98.8; O2SAT 98
[2017-11-29] MEDS: 1/2 NS + KCL 20 MEQ INJ 1,000 ML IV SCH (01:57)
[2017-11-29] MEDS: methylPREDNISolone SOD SUCC 40 MG/1 ML VIAL IV PUSH SCH ×2 (01:57→13:06)
[2017-11-29] MEDS: cefTRIAXone INJ 2,000 MG in SODIUM CHLORIDE 0.9% INJ 100 ML IV SCH (01:57)
[2017-11-29 03:20] VITALS: BP 140/81; PULSE 88; RESP 17; TEMP 97.9; O2SAT 99
[2017-11-29] MEDS: CHLORHEXIDINE GLUCONATE 2 % 1 PACK (2 CLOTHS)(taper/protocol) TOPICAL SCH (03:56)
[2017-11-29] MEDS: hydrOXYzine HCL 25 MG TAB PO PRN ×2 (04:38→11:59)
[2017-11-29] MEDS: PENTOXIFYLLINE 400 MG CONTROLLED RELEASE TAB PO SCH ×2 (05:22→13:06)
[2017-11-29 08:00] VITALS: BP 136/83; PULSE 101; RESP 16; TEMP 98.2; O2SAT 97
[2017-11-29] MEDS: LACTULOSE SYRUP 20 GM/30 ML CUP PO SCH ×2 (08:22→13:06)
[2017-11-29] MEDS: POTASSIUM CHLORIDE 25 MEQ EFFERVESCENT TAB NG SCH (08:22)
[2017-11-29] MEDS: SODIUM CHLORIDE 0.9% FLUSH 10 ML FLUSH IV FLUSH SCH (08:22)
[2017-11-29] MEDS: PANTOPRAZOLE SOD 40 MG DELAYED RELEASE TAB PO SCH (08:22)
[2017-11-29] MEDS: DOCUSATE SODIUM 50 MG/SENNA 8.6 MG TAB PO SCH (08:22)
[2017-11-29] MEDS: RIFAXIMIN 550 MG TAB PO SCH (08:22)
[2017-11-29 10:31] VITALS: PULSE 108
--- NOTE | 2017-11-29 10:39 | HHI.PR ---
Subjective Remarks lethargic, will arouse Objective Vital Signs Date Time Temp Pulse Resp B/P (MAP) Pulse Ox O2 Delivery O2 Flow Rate FiO2 11/29/17 10:31 108 11/29/17 03:20 97.9 88 17 140/81 (100) 99 11/29/17 00:30 98.8 69 18 120/67 (84) 98 11/28/17 23:32 18 11/28/17 22:30 111 11/28/17 20:30 98.0 68 19 118/69 (85) 98 11/28/17 16:00 98.4 100 18 128/64 (85) 96 11/28/17 12:39 98.1 103 17 125/68 (87) 95 I/O 11/28/17 11/28/17 11/28/17 11/29/17 11/29/17 11/29/17 07:00 15:00 23:00 07:00 15:00 23:00 Intake Total 100 ml 900 ml 1536 ml Output Total 0 ml 600 ml Balance 100 ml 900 ml 936 ml Intake Oral 900 ml 1200 ml IV Total 100 ml 336 ml Output Urine Total 0 ml 600 ml # Voids 3 # Bowel Movements 1 0 Result Diagram: 11/27/17 0536 11/27/17 0536 Objective Remarks GENERAL: This is a well-nourished, well-developed patient, lethargic SKIN: Jaundice EYES: Pupils equal round and reactive. positive scleral icterus. No injection or drainage. ENT: Nose without bleeding, purulent drainage. NECK: Trachea midline. No JVD CARDIOVASCULAR: Regular rate and rhythm without murmurs, gallops, or rubs. RESPIRATORY: Clear to auscultation. Breath sounds equal bilaterally. No wheezes , rales, or rhonchi. GASTROINTESTINAL: Abdomen soft, non-tender, MUSCULOSKELETAL: Extremities without clubbing, cyanosis, or edema. NEUROLOGICAL: lethargic, but arousals Laboratory Medications and IVs Current Medications Medications (Trade) Dose Ordered Sig/Virgil Route Start Time Stop Time Status Last Admin (Dulcolax Supp) 10 mg DAILY PRN RECTAL 11/24/17 14:00 (Lactulose Liq) 30 ml DAILY PRN PO 11/24/17 14:00 11/27/17 21:42 (Atarax) 25 mg Q6H PRN PO 11/24/17 15:15 11/29/17 04:38 (Zofran Odt) 4 mg Q6H PRN PO 11/24/17 15:15 11/27/17 08:41 (Narcan Inj) 0.4 mg UNSCH PRN IV PUSH 11/24/17 16:45 (Katie-Colace) 1 tab BID PO 11/24/17 21:00 11/29/17 08:22 (Milk Of Magnesia Liq) 30 ml Q12H PRN PO 11/24/17 16:45 (Senokot) 17.2 mg Q12H PRN PO 11/24/17 16:45 (NS Flush) 2 ml UNSCH PRN IV FLUSH 11/24/17 16:45 (NS Flush) 2 ml BID IV FLUSH 11/24/17 21:00 11/28/17 22:30 (Romazicon Inj) 0.2 mg Q1M PRN IV PUSH 11/24/17 16:45 (Ativan) 1 mg Q4H PRN PO 11/24/17 16:45 (Ativan Inj) 1 mg Q4H PRN IV PUSH 11/24/17 16:45 (Ativan) 2 mg Q2H PRN PO 11/24/17 16:45 (Ativan Inj) 2 mg Q2H PRN IV PUSH 11/24/17 16:45 11/25/17 21:58 (Ativan Inj) 2 mg Q1H PRN IV PUSH 11/24/17 16:45 (Ativan Inj) 2 mg Q15M PRN IV PUSH 11/24/17 16:45 (Roxicodone) 5 mg Q4H PRN PO 11/24/17 21:15 11/29/17 04:38 Miscellaneous Information Patient in critical care unit? Ass... [id number] .XX 11/24/17 22:30 (Chlorhexidine 2% Cloth) 3 pack UNSCH PRN TOPICAL 11/24/17 22:30 11/29/17 22:15 Ceftriaxone Sodium 2000 mg/ Sodium Chloride 100 ml @ 200 mls/hr Q24H IV 11/25/17 01:30 11/29/17 01:57 (Protonix) 40 mg DAILY PO 11/25/17 09:00 11/29/17 08:22 (K-Lyte Cl Eff) 25 meq Q12HR NG 11/25/17 06:00 11/29/17 08:22 Potassium Chloride/Sodium Chloride 1,000 ml @ 42 mls/hr [id number] IV 11/25/17 01:45 11/29/17 01:57 (Lactulose Liq) 30 ml TID PO 11/26/17 13:00 11/29/17 08:22 (TRENtal SR) 400 mg Q8HR PO 11/26/17 14:00 11/29/17 05:22 (SoluMEDROL INJ) 40 mg Q12H IV PUSH 11/27/17 14:00 11/29/17 01:57 (Xifaxan) 550 mg BID PO 11/28/17 21:00 11/29/17 08:22 Assessment and Plan Problem List: (1) Hypokalemia ICD Codes: E87.6 - Hypokalemia Status: Acute Plan: potassium 3.3 today, monitor bmp Refusing IV K (2) Liver cirrhosis, alcoholic ICD Codes: K70.30 - Alcoholic cirrhosis of liver without ascites Status: Chronic Plan: Gi following, lethargic today likely to ammonia level, he has been refusing. Started on Rifaximin (3) Chronic alcohol use ICD Codes: Z72.89 - Other problems related to lifestyle Status: Chronic Plan: On CIWA protocol. (4) Hyperammonemia ICD Codes: E72.20 - Disorder of urea cycle metabolism, unspecified Plan: lethargic, refusing lactulose. will get new level. Palliative was consulted yesterday for refusal of treatment. Assessment and Plan Palliative consult, Patient cont to drink, refuse lactulose, potassium. Problem Qualifiers (1) Liver cirrhosis, alcoholic: Qualified Codes: K70.31 - Alcoholic cirrhosis of liver with ascites Shayy Alonzo Nov 29, 2017 10:39
[2017-11-29 11:38] LABS: AUTOMATED NEUTROPHIL # 37.4 TH/MM3 (1.8-7.7); BASOPHIL # 0.1 TH/MM3 (0-0.2); BASOPHIL % 0.2 % (0.0-2.0); EOSINOPHIL % 0.1 % (0.0-4.0); HEMATOCRIT 40.1 % (39.0-51.0); HEMOGLOBIN 14.3 GM/DL (13.0-17.0); LYMPH % 3.8 % (9.0-44.0); LYMPHOCYTE # 1.6 TH/MM3 (1.0-4.8); MEAN CELL VOLUME 101.9 FL (80.0-100.0); MEAN CORPUSCULAR HEMOGLOBIN 36.3 PG (27.0-34.0); MEAN CORPUSCULAR HGB CONC 35.7 % (32.0-36.0); MEAN PLATELET VOLUME 8.1 FL (7.0-11.0); MONO % 8.6 % (0.0-8.0); MONOCYTE # 3.7 TH/MM3 (0-0.9); NEUT % 87.3 % (16.0-70.0); PLATELET COUNT 365 TH/MM3 (150-450); RED BLOOD COUNT 3.94 MIL/MM3 (4.50-5.90); RED CELL DISTRIBUTION WIDTH 16.7 % (11.6-17.2); WHITE BLOOD COUNT 42.9 TH/MM3 (4.0-11.0)
[2017-11-29 11:43] LABS: INTERNATIONAL NORMALIZED RATIO 1.6 RATIO; PROTHROMBIN TIME - PATIENT 16.5 SEC (9.8-11.6)
[2017-11-29 12:00] VITALS: BP 129/72; PULSE 103; RESP 18; TEMP 98.5; O2SAT 98
[2017-11-29 12:00] LABS: ALBUMIN 1.7 GM/DL (3.4-5.0); ALT (GPT) 44 U/L (12-78); AST (GOT) 74 U/L (15-37); BICARBONATE 9.8 MEQ/L (21.0-32.0); CALCIUM 7.9 MG/DL (8.5-10.1); CHLORIDE 104 MEQ/L (98-107); CREATININE 1.19 MG/DL (0.60-1.30); GLOMERULAR FILTRATION RATE 68 ML/MIN (>89); GLUCOSE,RANDOM 89 MG/DL (74-106); SODIUM (NA) 133 MEQ/L (136-145)
[2017-11-29 12:02] LABS: ALKALINE PHOSPHATASE 339 U/L (45-117); TOTAL PROTEIN 7.2 GM/DL (6.4-8.2)
[2017-11-29 12:18] LABS: BLOOD UREA NITROGEN 22 MG/DL (7-18)
[2017-11-29 12:21] LABS: BANDS 2 % (0-6); LYMPHOCYTES 4 % (9-44); MONOCYTES 5 % (0-8); MYELOCYTES 1 % (0-0); POLYS (SEG NEUTROPHILS) 88 % (16-70)
[2017-11-29 12:22] LABS: TOTAL BILIRUBIN ADULT 25.1 MG/DL (0.2-1.0)
--- NOTE | 2017-11-29 13:18 | HHI.GIFU ---
Subjective Remarks Pt resting in bed in NAD. seems more alert today. (Alice Campbell) Objective Vitals I&O Vital Signs Date Time Temp Pulse Resp B/P (MAP) Pulse Ox O2 Delivery O2 Flow Rate FiO2 11/29/17 10:31 108 11/29/17 08:00 98.2 101 16 136/83 (100) 97 11/29/17 03:20 97.9 88 17 140/81 (100) 99 11/29/17 00:30 98.8 69 18 120/67 (84) 98 11/28/17 23:32 18 11/28/17 22:30 111 11/28/17 20:30 98.0 68 19 118/69 (85) 98 11/28/17 16:00 98.4 100 18 128/64 (85) 96 I/O 11/28/17 11/28/17 11/28/17 11/29/17 11/29/17 11/29/17 07:00 15:00 23:00 07:00 15:00 23:00 Intake Total 100 ml 900 ml 1536 ml Output Total 0 ml 600 ml Balance 100 ml 900 ml 936 ml Intake Oral 900 ml 1200 ml IV Total 100 ml 336 ml Output Urine Total 0 ml 600 ml # Voids 3 # Bowel Movements 1 0 Laboratory Laboratory Tests Test 11/24/17 09:05 11/24/17 15:30 11/25/17 04:00 11/25/17 10:57 Activated Partial Thromboplast Time 30.7 SEC Ethyl Alcohol Level 5 MG/DL Nasal Screen MRSA (PCR) MRSA NOT DETECTED Urine Color DARK-YELLOW Urine Turbidity CLEAR Urine pH 6.5 Urine Specific [place] 1.012 Urine Protein NEG mg/dL Urine Glucose (UA) NEG mg/dL Urine Ketones NEG mg/dL Urine Occult Blood TRACE Urine Nitrite NEG Urine Bilirubin LARGE Urine Urobilinogen LESS THAN 2.0 MG/DL Urine Leukocyte Esterase TRACE Urine RBC LESS THAN 1 /hpf Urine WBC 2 /hpf Urine Squamous Epithelial Cells <1 /hpf Urine Bacteria RARE /hpf Urine Mucus FEW /lpf Microscopic Urinalysis Comment CULT NOT INDICATED Body Fluid Amylase Source PERITONEAL Body Fluid Amylase 61 U/L Peritoneal Fluid WBC 174 /MM3 Peritoneal Fluid RBC 174 /MM3 Peritoneal Fluid Neutrophils 55 % Peritoneal Fluid Lymphocytes 15 % Peritoneal Fluid Monocytes 20 % Peritoneal Fluid Histiocytes 10 % Peritoneal Fluid Total Protein 0.9 GM/DL Peritoneal Fluid Albumin 0.4 G/DL Peritoneal Fluid LDH 36 U/L Peritoneal Fluid Glucose 94 MG/DL Test 11/26/17 07:26 11/27/17 05:36 11/29/17 11:05 Eosinophils % 1 % Metamyelocytes 1 % Toxic Granulation 1+ Target Cells 1+ Direct Bilirubin 20.4 MG/DL Indirect Bilirubin 3.6 MG/DL Basophils % 1 % White Blood Count 42.9 TH/MM3 Red Blood Count 3.94 MIL/MM3 Hemoglobin 14.3 GM/DL Hematocrit 40.1 % Mean Corpuscular Volume 101.9 FL Mean Corpuscular Hemoglobin 36.3 PG Mean Corpuscular Hemoglobin Concent 35.7 % Red Cell Distribution Width 16.7 % Platelet Count 365 TH/MM3 Mean Platelet Volume 8.1 FL Neutrophils (%) (Auto) 87.3 % Lymphocytes (%) (Auto) 3.8 % Monocytes (%) (Auto) 8.6 % Eosinophils (%) (Auto) 0.1 % Basophils (%) (Auto) 0.2 % Neutrophils # (Auto) 37.4 TH/MM3 Lymphocytes # (Auto) 1.6 TH/MM3 Monocytes # (Auto) 3.7 TH/MM3 Eosinophils # (Auto) 0.0 TH/MM3 Basophils # (Auto) 0.1 TH/MM3 CBC Comment AUTO DIFF Differential Total Cells Counted 100 Neutrophils % (Manual) 88 % Band Neutrophils % 2 % Lymphocytes % 4 % Monocytes % 5 % Neutrophils # (Manual) 39.0 TH/MM3 Myelocytes 1 % Differential Comment FINAL DIFF MANUAL Platelet Estimate NORMAL Platelet Morphology Comment NORMAL Prothrombin Time 16.5 SEC Prothromb Time International Ratio 1.6 RATIO Blood Urea Nitrogen 22 MG/DL Creatinine 1.19 MG/DL Random Glucose 89 MG/DL Total Protein 7.2 GM/DL Albumin 1.7 GM/DL Calcium Level 7.9 MG/DL Alkaline Phosphatase 339 U/L Aspartate Amino Transf (AST/SGOT) 74 U/L Alanine Aminotransferase (ALT/SGPT) 44 U/L Total Bilirubin 25.1 MG/DL Sodium Level 133 MEQ/L Potassium Level 3.6 MEQ/L Chloride Level 104 MEQ/L Carbon Dioxide Level 9.8 MEQ/L Anion Gap 19 MEQ/L Estimat Glomerular Filtration Rate 68 ML/MIN Ammonia 53 MCMOL/L Laboratory Tests Test 11/29/17 11:05 White Blood Count 42.9 Red Blood Count 3.94 Hemoglobin 14.3 Hematocrit 40.1 Mean Corpuscular Volume 101.9 Mean Corpuscular Hemoglobin 36.3 Mean Corpuscular Hemoglobin Concent 35.7 Red Cell Distribution Width 16.7 Platelet Count 365 Mean Platelet Volume 8.1 Neutrophils (%) (Auto) 87.3 Lymphocytes (%) (Auto) 3.8 Monocytes (%) (Auto) 8.6 Eosinophils (%) (Auto) 0.1 Basophils (%) (Auto) 0.2 Neutrophils # (Auto) 37.4 Lymphocytes # (Auto) 1.6 Monocytes # (Auto) 3.7 Eosinophils # (Auto) 0.0 Basophils # (Auto) 0.1 CBC Comment AUTO DIFF Differential Total Cells Counted 100 Neutrophils % (Manual) 88 Band Neutrophils % 2 Lymphocytes % 4 Monocytes % 5 Neutrophils # (Manual) 39.0 Myelocytes 1 Differential Comment FINAL DIFF MANUAL Platelet Estimate NORMAL Platelet Morphology Comment NORMAL Prothrombin Time 16.5 Prothromb Time International Ratio 1.6 Blood Urea Nitrogen 22 Creatinine 1.19 Random Glucose 89 Total Protein 7.2 Albumin 1.7 Calcium Level 7.9 Alkaline Phosphatase 339 Aspartate Amino Transf (AST/SGOT) 74 Alanine Aminotransferase (ALT/SGPT) 44 Total Bilirubin 25.1 Sodium Level 133 Potassium Level 3.6 Chloride Level 104 Carbon Dioxide Level 9.8 Anion Gap 19 Estimat Glomerular Filtration Rate 68 Ammonia 53 Date/Time Source Procedure Growth Status 11/25/17 13:26 Blood Peripheral Aerobic Blood Culture - Preliminary NO GROWTH IN 4 DAYS Resulted 11/25/17 13:26 Blood Peripheral Anaerobic Blood Culture - Preliminary NO GROWTH IN 4 DAYS Resulted 11/25/17 10:57 Fluid Peritoneal Fluid Gram Stain - Final Complete 11/25/17 10:57 Fluid Peritoneal Fluid Body Fluid Culture - Final NO GROWTH IN 72 HRS.--AEROBICALLY OR ... Complete Physical Exam HEENT: PERRL; normocephalic; atraumatic; icteric CHEST: CTA CARDIAC: Tachycardia ABDOMEN: Soft, distended, nontender; bowel sounds soft EXTREMITIES: No clubbing, cyanosis, or edema. SKIN: Normal; no rash; significant jaundice. [employer]: mildly lethargic, more alert today (Alice Campbell) Assessment and Plan Plan Plan Alcoholic cirrhosis, fairly new diagnosis, according to the record has started initial labs and CT imaging. At this time patient continues to consume daily alcohol. First paracentesis done today 11/25/17 with 4.4 L were withdrawn. No albumin given. Patient does have some immediate abdominal pain and bloating relief. Current labs include bilirubin 24.3, LFTs 69 AST, ALT 34, alkaline phosphatase 279, ammonia level 52, PT INR 1.7, WBC count 25.2, hemoglobin 12.9. Records from previous admission on 11/12/17 show mitochondrial M2 AB 22.9 FINA screen negative, tissue transglutaminase IgA 2, cryoglobulin negative cryoglobulin and Cryocrit none detected. Smooth muscle antibody +1:20. , Hepatitis profile negative., 11/12/17, Ceruloplasmin 40, alpha-1 antitrypsin 251, albumin 1.9 on 11/24/17,. On 11/13/17 direct bilirubin 17.5, indirect 3.5. Abdominal cramping controlled now Abdominal CT on 11/24/17 showed moderate amount of ascites and hepatomegaly. 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 Basilar atelectasis. Portal hypertension, secondary to cirrhosis liver disease, abdominal varices appear to be stable for now no obvious bleeding Paracentesis performed on 11/25/17 uncomplicated ultrasound-guided 4.4 L removed 11/26/17 - still with soem mild diffuse abd TTP. mildly lethargic but rousable and answers appropriately. DF is 47, could benefit from pentoxifylline vs steroid therapy if no SBP peritoneal fluid cultures and cytology pending. WBC elevated. Peritoneal WBC 174. 11/27/17, patient appears resting, but answers to verbal stimuli. Anxious over hospital admission hoping to go home soon. PT INR 1.6, bilirubin remains 23.4, LFTs 64/31, ammonia level 77, states looser BM today. Continues to be on Solu- Medrol IV 11/28/17 mildly lethargic, refusing lactulose d/t s/e. LFTs not much change, elevated. palliative care consult pending. 11/29/17 mildly lethargic but slightly more alert today. on rifaximin, NH mild decrease. WBC significantly increased today. afebrile. fluid cx no growth. LFTs trending up palliative care following. cytology benign Plan - TID pentoxifylline - cont rifaximin - continue steroids - Protonix - monitor labs - low sodium diet - ETOH cessation pt seen by myself and Dr Patel and this note is on his behalf (Alice Campbell) Physician Comments Seen with corey Becker as above. (Arely Patel MD) Alice Campbell Nov 29, 2017 13:18 Arely Patel MD Nov 29, 2017 14:07
--- NOTE | 2017-11-29 14:02 | RADRPT ---
EXAM DATE/TIME: 11/29/2017 13:52 [facility] COMPARISON: CHEST PA & LAT, November 24, 2017, 22:30. INDICATIONS : Short of breath. MEDICAL HISTORY : Gastroesophageal reflux disease. Hepatitis. ETOH use daily. Asthma. SURGICAL HISTORY : None. ENCOUNTER: Subsequent ACUITY: 4 - 6 days PAIN SCORE: 0/10 LOCATION: Bilateral chest FINDINGS: PA and lateral views of the chest demonstrate the lungs to be symmetrically aerated without evidence of mass, infiltrate or effusion. Stable mild elevation of the right hemidiaphragm. The cardiomediasti nal contours are unremarkable. Osseous structures are intact. CONCLUSION: No acute disease. No significant change has occurred. Cruz Shipman MD on November 29, 2017 at 13:59 Board Certified Radiologist. This report was verified electronically.
--- NOTE | 2017-11-29 15:38 | MB ---
cc: Cj Kaplan MD DATE OF CONSULT: 11/29/2017 REFERRING PHYSICIAN: Jose Hunter DO REASON FOR CONSULTATION: Leukocytosis. HISTORY OF PRESENT ILLNESS: This is a 37-year-old white male who has liver cirrhosis. The patient was admitted to the hospital on 11/24 with jaundice and fatigue. He was admitted to the hospital and has undergone workup including paracentesis. Culture from paracentesis fluid had no growth in 72 hours. Patient has had leukocytosis since admission. He was admitted with a white count of 23,000 and today, white count is up to 42.9. He is afebrile. Because of the increased white blood cell count, this consultation is requested for evaluation. The patient underwent CT scan of the abdomen and pelvis on 11/24, which showed a moderate amount of ascites. Hepatomegaly. Apparently intraabdominal varices were noted to be stable. Blood cultures taken on 11/25 have no growth. Patient appears lethargic. He admits to having abdominal pain, approximately 5/10 scale, and he said it has been the same since admission. He denies hemoptysis or bloody stools. He denies diarrhea. The paracentesis fluid pathology shows rare mesothelial cells and scattered leukocytes. Patient's total bilirubin has been high. It is currently 25.1. Chest x-ray from today shows no acute infiltrate. Patient denies shortness of breath. PAST MEDICAL HISTORY: Alcoholic liver cirrhosis, alcohol abuse, history of asthma. ALLERGIES: NO KNOWN DRUG ALLERGIES. MEDICATIONS: Methylprednisolone, rifaximin, Trental, lactulose, Protonix, oxycodone, ceftriaxone, potassium, Katie-Colace, Ativan. SOCIAL HISTORY: Positive alcohol use in the form of beer. Patient smokes quarter pack of cigarettes a day. Positive marijuana use. FAMILY HISTORY: Noncontributory. REVIEW OF SYSTEMS: Pertinent mentioned above in history of present illness. PHYSICAL EXAMINATION: GENERAL: This is a well-developed male who looks older than stated age. He is markedly jaundiced. He is in no acute distress. VITAL SIGNS: Include temperature 98.5, BP 129/72, respirations 18, heart rate 103. HEENT: The head atraumatic. Extraocular movements grossly intact. Positive icterus. Oropharynx moist mucosa. No visible lesions in the oropharynx. NECK: Supple without adenopathy or swelling. LUNGS: Decreased clear breath sounds. HEART: Regular S1 and S2. No audible murmurs, rubs or gallops. ABDOMEN: Obese, soft, no masses palpable. RECTAL: Not performed. EXTREMITIES: No clubbing, cyanosis or edema. SKIN: Diffusely jaundiced. No diffuse rash. Multiple bright purpuric tag lesions scattered over the arms and face. NEUROLOGIC: No gross focal finding. PSYCHIATRIC: Patient calm and cooperative, although his affect appears flat. LABORATORY DATA: WBC 42.9, 87% neutrophils, 3% lymphocytes, 8% monocytes, hemoglobin 14.3. Creatinine 1.19, BUN 22, estimated GFR of 68. Total bilirubin 25.1, AST 74, ALT 44, alkaline phosphatase 339, ammonia level 53. IMPRESSION: Leukocytosis. Unclear etiology. Patient had paracentesis, but the fluid was unremarkable. Chest x-ray is clear, and he has no diarrhea, no dysuria. The source of the white blood cell count is not clear form physical exam or review of the patient's symptoms. It is possible that the WBC elevation could be reactive. However, given the constant increase, the cause could possibly be infection or development of spontaneous bacterial peritonitis after the peritoneal fluid aspiration. RECOMMENDATIONS: 1. Continue ceftriaxone. 2. Add Flagyl. 3. Monitor white blood cell count. 4. Monitor blood cultures. 5. Monitor symptomatology. Thank you for this consultation. I will follow the patient's progress along with you and will make further recommendations on followup. MD MAYELIN Burrell/DAVID , 03:03 PM , 03:36 PM
[2017-11-29] MEDS ORDERED: metroNIDAZOLE 500 MG INJ 100 ML IV SCH (16:00)
[2017-11-29 16:45] VITALS: BP 132/74; PULSE 100; RESP 18; TEMP 98.5; O2SAT 98
--- NOTE | 2017-11-29 17:13 | HHI.HCPN ---
Reason for visit a. To assist with evaluation and management of symptoms including: Pain, pruritus b. To assist medical decision maker(s) with: better understanding of current medical conditions; weighing benefits/burdens of medical treatment options; making medical treatment decisions. Subjective/Interval History Patient seen to follow-up on symptom management and goals of care. Patient seen sitting on bedside scratching. He has multiple, scabbed lesions all over his arms, legs shoulders and trunk from pruritus. He is significantly jaundiced. He is awaiting taking a shower. I reviewed his laboratory studies with him which show an elevation in his chronic leukocytosis, possibly secondary to steroid use, increasing bilirubin which has now risen to 25.1 and uptrending transaminases. After our last conversation he did agree to take the lactulose and Xifaxan and his ammonia has decreased from 77 to 53 on dual therapy. Cognition remains mildly blunted. He was seen by infectious disease today to evaluate the cause of leukocytosis. Previous admissions were reviewed and he was found to have elevated white blood cells on his initial admission to [facility] 11/11/17 of 16.3 which have never trended below 14.7. He received prednisone 40 mg 11/13 and 11/14 and methylprednisolone 40 mg IV twice daily on 11/27, and . Per Dr. Kaplan's evaluation, no clear cause of the leukocytosis was found, yet the patient is at elevated risk for spontaneous bacterial peritonitis due to his significant liver disease necessitating paracentesis. Ceftriaxone, initiated 11/[address] Billy due to the risk of SBP, was continued and Flagyl was added. Blood cultures were drawn. I reviewed these findings with the patient and discussed the severity of his liver dysfunction. He asked what his treatment options were and were advised that they included his current drug treatment regimen, alcohol cessation and continued follow-up with gastroenterology. Patient stated that he wanted to go home and I advised him that Dr. Hunter was his attending and need to manage his discharge. He stated that Dr. Hunter had refused to discharge him and told him he would have to "sign papers himself". Patient requested that I advised his nurse he wished to sign himself out AGAINST MEDICAL ADVICE. I did advise the patient that he would likely require readmission because his abdominal pain and itching will persist and could get worse. He again asked what options he had and I advised him that if he wanted to be comfortable and receive treatment for his symptoms that he could consider hospice services. He at that point went into the bathroom and closed the door. That message was relayed to the nurse of the patient's request. . Family/friend interactions No family at bedside. I did ask the patient if he had spoken with his family and he said he would not do that until he was home. . Advance Directives Living Will: Never completed Health Care Surrogate: Copy in medical record Durable Power of Structural Iron Erector: Never completed Advance Directive Specifics Date completed: 11/28/2017. . Health Care Surrogate(s): He has elected his mother, Tanya العلي as his healthcare surrogate. . Documented care wishes: No Living Will available. . Objective Vital Signs Date Time Temp Pulse Resp B/P (MAP) Pulse Ox O2 Delivery O2 Flow Rate FiO2 11/29/17 12:00 98.5 103 18 129/72 (91) 98 11/29/17 10:31 108 11/29/17 08:00 98.2 101 16 136/83 (100) 97 11/29/17 03:20 97.9 88 17 140/81 (100) 99 11/29/17 00:30 98.8 69 18 120/67 (84) 98 11/28/17 23:32 18 11/28/17 22:30 111 11/28/17 20:30 98.0 68 19 118/69 (85) 98 Intake & Output 11/29/17 11/29/17 07:00 19:00 Intake Total 2436 ml Output Total 600 ml Balance 1836 ml Intake Oral 2100 ml IV Total 336 ml Output Urine Total 600 ml # Voids 3 # Bowel Movements 0 Physical Exam CONSTITUTIONAL/GENERAL: This is an adequately nourished patient, looking uncomfortable. TUBES/LINES/DRAINS: PIV right wrist. SKIN: Significant jaundice, no rashes, or lesions. Ecchymoses on upper extremities. Multiple scabbed lesions seen on all extremities and across trunk , some bleeding from being scratched. EYES: Pupils equal and round and reactive. Extraocular motions intact. Scleral icterus. No injection or drainage. Fundi not examined. CARDIOVASCULAR: Regular rate and rhythm, S1, S2 with 2/6 systolic ejection murmur, without gallops, or rubs. No JVD. Peripheral pulses symmetric. RESPIRATORY/CHEST: Symmetric, unlabored respirations. Clear to auscultation. Breath sounds equal bilaterally. No wheezes, rales, or rhonchi. GASTROINTESTINAL: Abdomen soft, distended, tender to palpation. Unable to evaluate organomegaly due to body habitus but noted on imaging studies to have hepatosplenomegaly. GENITOURINARY: Without palpable bladder distension. Voiding. MUSCULOSKELETAL: Extremities without clubbing, cyanosis, or edema. No joint tenderness or effusion noted. No calf tenderness. No mottling or clubbing. LYMPHATICS: No palpable cervical or supraclavicular adenopathy. NEUROLOGICAL: Awake, alert, somewhat blunted cognitively. Oriented. PSYCHIATRIC: No obvious anxiety/depression. no apparent hallucinations or other psychotic thought process. . Diagnostic Tests Laboratory Laboratory Tests Test 11/27/17 05:36 11/27/17 05:38 11/29/17 11:05 11/29/17 13:10 White Blood Count 28.3 TH/MM3 (4.0-11.0) 42.9 TH/MM3 (4.0-11.0) Red Blood Count 3.60 MIL/MM3 (4.50-5.90) 3.94 MIL/MM3 (4.50-5.90) Hemoglobin 12.9 GM/DL (13.0-17.0) 14.3 GM/DL (13.0-17.0) Hematocrit 36.3 % (39.0-51.0) 40.1 % (39.0-51.0) Mean Corpuscular Volume 100.9 FL (80.0-100.0) 101.9 FL (80.0-100.0) Mean Corpuscular Hemoglobin 35.9 PG (27.0-34.0) 36.3 PG (27.0-34.0) Mean Corpuscular Hemoglobin Concent 35.6 % (32.0-36.0) 35.7 % (32.0-36.0) Red Cell Distribution Width 16.6 % (11.6-17.2) 16.7 % (11.6-17.2) Platelet Count 281 TH/MM3 (150-450) 365 TH/MM3 (150-450) Mean Platelet Volume 8.5 FL (7.0-11.0) 8.1 FL (7.0-11.0) Neutrophils (%) (Auto) 83.8 % (16.0-70.0) 87.3 % (16.0-70.0) Lymphocytes (%) (Auto) 5.5 % (9.0-44.0) 3.8 % (9.0-44.0) Monocytes (%) (Auto) 8.7 % (0.0-8.0) 8.6 % (0.0-8.0) Eosinophils (%) (Auto) 1.7 % (0.0-4.0) 0.1 % (0.0-4.0) Basophils (%) (Auto) 0.3 % (0.0-2.0) 0.2 % (0.0-2.0) Neutrophils # (Auto) 23.7 TH/MM3 (1.8-7.7) 37.4 TH/MM3 (1.8-7.7) Lymphocytes # (Auto) 1.5 TH/MM3 (1.0-4.8) 1.6 TH/MM3 (1.0-4.8) Monocytes # (Auto) 2.5 TH/MM3 (0-0.9) 3.7 TH/MM3 (0-0.9) Eosinophils # (Auto) 0.5 TH/MM3 (0-0.4) 0.0 TH/MM3 (0-0.4) Basophils # (Auto) 0.1 TH/MM3 (0-0.2) 0.1 TH/MM3 (0-0.2) CBC Comment AUTO DIFF AUTO DIFF Differential Total Cells Counted 100 100 Neutrophils % (Manual) 85 % (16-70) 88 % (16-70) Lymphocytes % 7 % (9-44) 4 % (9-44) Monocytes % 7 % (0-8) 5 % (0-8) Basophils % 1 % (0-2) Neutrophils # (Manual) 24.1 TH/MM3 (1.8-7.7) 39.0 TH/MM3 (1.8-7.7) Differential Comment FINAL DIFF MANUAL FINAL DIFF MANUAL Platelet Estimate NORMAL (NORMAL) NORMAL (NORMAL) Platelet Morphology Comment NORMAL (NORMAL) NORMAL (NORMAL) Blood Urea Nitrogen 18 MG/DL (7-18) 22 MG/DL (7-18) Creatinine 1.07 MG/DL (0.60-1.30) 1.19 MG/DL (0.60-1.30) Random Glucose 79 MG/DL (74-106) 89 MG/DL (74-106) Total Protein 6.9 GM/DL (6.4-8.2) 7.2 GM/DL (6.4-8.2) Albumin 1.7 GM/DL (3.4-5.0) 1.7 GM/DL (3.4-5.0) Calcium Level 8.0 MG/DL (8.5-10.1) 7.9 MG/DL (8.5-10.1) Alkaline Phosphatase 305 U/L (45-117) 339 U/L (45-117) Aspartate Amino Transf (AST/SGOT) 64 U/L (15-37) 74 U/L (15-37) Alanine Aminotransferase (ALT/SGPT) 31 U/L (12-78) 44 U/L (12-78) Total Bilirubin 23.4 MG/DL (0.2-1.0) 25.1 MG/DL (0.2-1.0) Sodium Level 132 MEQ/L (136-145) 133 MEQ/L (136-145) Potassium Level 3.3 MEQ/L (3.5-5.1) 3.6 MEQ/L (3.5-5.1) Chloride Level 101 MEQ/L (98-107) 104 MEQ/L (98-107) Carbon Dioxide Level 18.7 MEQ/L (21.0-32.0) 9.8 MEQ/L (21.0-32.0) Anion Gap 12 MEQ/L (5-15) 19 MEQ/L (5-15) Estimat Glomerular Filtration Rate 77 ML/MIN (>89) 68 ML/MIN (>89) Ammonia 77 MCMOL/L (11-32) 53 MCMOL/L (11-32) Prothrombin Time 16.3 SEC (9.8-11.6) 16.5 SEC (9.8-11.6) Prothromb Time International Ratio 1.6 RATIO 1.6 RATIO Band Neutrophils % 2 % (0-6) Myelocytes 1 % (0-0) Lactic Acid Level 1.9 mmol/L (0.4-2.0) . Result Diagram: 11/29/17 1105 11/29/17 1105 Microbiology Microbiology Date/Time Source Procedure Growth Status 11/29/17 13:25 Blood Peripheral Aerobic Blood Culture Pending Received 11/29/17 13:25 Blood Peripheral Anaerobic Blood Culture Pending Received 11/29/17 13:20 Blood Peripheral Aerobic Blood Culture Pending Received 11/29/17 13:20 Blood Peripheral Anaerobic Blood Culture Pending Received Imaging Last Impressions Chest X-Ray 11/29/17 0000 Signed Impressions: Service Date/Time: Wednesday, November 29, 2017 13:52 - CONCLUSION: No acute disease. No significant change has occurred. Cruz Shipman MD Cyst Biopsy Asp-Paracentesis US 11/25/17 0000 Signed Impressions: Service Date/Time: Saturday, November 25, 2017 10:16 - CONCLUSION: Uncomplicated ultrasound guided paracentesis. Roly Brantley MD FACR Abdomen/Pelvis CT 11/24/17 0000 Signed Impressions: Service Date/Time: November 22:17 - CONCLUSION: Moderate amount of ascites. Hepatomegaly. Apparent intra-abdominal varices which are stable compared to previous examination. Bibasilar atelectasis. Eddie Monteiro MD Procedures 11/25: Paracentesis . Assessment and Plan Disease Oriented Problem List: (1) Anasarca (2) Generalized weakness (3) Portal hypertension (4) Hypokalemia (5) Liver cirrhosis, alcoholic (6) Chronic alcohol use Symptom Scale: (1) Pain, generalized 0-10 Scale: 5 (2) Pruritus 0-10 Scale: 7 Pertinent Non-Medical Issues Psychosocial:He was born and completed high school in [place] then moved to [place] with his parents when they retired. He has never been or had children. He has never been in the armed service. He works at [employer]. Spiritual: Identifies with the Anabaptism ovidio. Legal: No legal issues noted. Ethical issues impacting care: No ethical issues noted. . Important Contacts Mother: Linda العلي Prognosis Prognosis is guarded. He has a long history of alcohol abuse with subsequent liver decline. His meld score is 25. He voices no intention for alcohol cessation. His ammonia continues to climb and he is somewhat noncompliant with medical therapy. He is likely to experience continued decline in complications with recurrent hospitalizations. . Code Status: Full Code Plan PLAN: Legal decision maker: At this time the patient is able to make his own decisions. As his physical condition declines this could be problematic in light of his hyperammonemia. He has named his mother healthcare surrogate but did not have an alternate suggestion. Goals: Aggressive CODE STATUS: FULL CODE SYMPTOMS: * Pain: He is receiving oxycodone, without Tylenol for his pain which he states makes it "feel numb". He is at risk for continued discomfort due to recurrent ascites, bedbound status and invasive lines. He is receiving 3-4 doses of 5 mg each daily with fair management of his pain. Patient is asking to be discharged home AGAINST MEDICAL ADVICE, which will likely exclude prescriptions to manage his symptoms. He is at risk for recurrent readmission due to noncompliance with medical therapy. * Pruritus: He is receiving hydroxyzine, 25 mg every 6 hours as needed for itching. He is using 2-3 times daily. He remains pruritic and is scratching lesions open to the point of bleeding. As he is leaving AGAINST MEDICAL ADVICE , this will likely worsen. Palliative care will continue to follow the patient during hospital course as condition evolves, to assist patient/decision-maker with understanding of their medical conditions, weighing benefits/burdens of treatment options, for clarification of goals of treatment. Additionally will assist with any symptoms of palliative concern. . Attestation To help prompt me to consider important information that might be impacting today's encounter and assessment, information from prior notes written by myself or my colleagues may have been "brought forward" into today's note. My signature on this note, however, is an attestation that I personally performed the exam, history, and/or decision-making noted today, and, unless otherwise indicated, the interactions with patient, family, and staff as well as the review of records all occurred today. I also attest that the listed assessment and stated plan reflect my best clinical judgment today based on the combination of historical information, prior notes, and today's exam/ interactions. When time spent is documented, it refers only to time spent today by the signer, or if indicated, combined time spent today by collaborating physician/nurse practitioner. . Ariana Pedroza Nov 29, 2017 5:13 pm
--- NOTE | 2017-11-29 21:41 | HHI.DS ---
Discharge Summary Admission Date Nov 24, 2017 at 16:44 Discharge Date: Nov 29, 2017 Admitting Diagnosis Leaving AMA anasarca,hypokalemia,gen weakness,liver cirrhosis (1) Cirrhosis with alcoholism ICD Codes: K70.30 - Alcoholic cirrhosis of liver without ascites Status: Acute (2) Hyperammonemia ICD Codes: E72.20 - Disorder of urea cycle metabolism, unspecified Status: Acute (3) Pruritus ICD Codes: L29.9 - Pruritus, unspecified (4) Chronic alcohol use ICD Codes: Z72.89 - Other problems related to lifestyle Status: Chronic Brief History 37 year old male who was admitted on 11/24/17 for abdominal pain and cramping wbc 23 and Potassium 2.7. He was admitted to ICU for close monitoring. He recently been treated at the [facility] on 11/14/17. He is a daily alcohol consumer. CT abdomen/pelvis show ascites, He had paracentesis on 11/25/17 with 4.4 liters of fluid removed. Cultures had no growth , blood cultures negative. He was recently diagnosed with alcoholic liver cirrhosis he did have a GI consultation and labs which included CT and MRI imaging which showed diffusely cirrhotic liver at last hospitalization. During his stay he had been refusing Lactulose and Potassium. Palliative care consulted and were able to convince him to take lactulose and potassium, as well as Rifampin. He has been informed that prognosis is grim with continue use of Alcohol. He was informed by palliative care that he would require ongoing management with GI and treatment of symptoms. Received call from nurse that patient is leaving. There is no reasoning, he wants to go home today. He chose to leave AMA. CBC/BMP: 11/29/17 1105 11/29/17 1105 Significant Findings Laboratory Tests Test 11/27/17 05:36 11/27/17 05:38 11/29/17 11:05 11/29/17 13:10 White Blood Count 28.3 TH/MM3 (4.0-11.0) 42.9 TH/MM3 (4.0-11.0) Red Blood Count 3.60 MIL/MM3 (4.50-5.90) 3.94 MIL/MM3 (4.50-5.90) Hemoglobin 12.9 GM/DL (13.0-17.0) Hematocrit 36.3 % (39.0-51.0) Mean Corpuscular Volume 100.9 FL (80.0-100.0) 101.9 FL (80.0-100.0) Mean Corpuscular Hemoglobin 35.9 PG (27.0-34.0) 36.3 PG (27.0-34.0) Neutrophils (%) (Auto) 83.8 % (16.0-70.0) 87.3 % (16.0-70.0) Lymphocytes (%) (Auto) 5.5 % (9.0-44.0) 3.8 % (9.0-44.0) Monocytes (%) (Auto) 8.7 % (0.0-8.0) 8.6 % (0.0-8.0) Neutrophils # (Auto) 23.7 TH/MM3 (1.8-7.7) 37.4 TH/MM3 (1.8-7.7) Monocytes # (Auto) 2.5 TH/MM3 (0-0.9) 3.7 TH/MM3 (0-0.9) Eosinophils # (Auto) 0.5 TH/MM3 (0-0.4) Neutrophils % (Manual) 85 % (16-70) 88 % (16-70) Lymphocytes % 7 % (9-44) 4 % (9-44) Neutrophils # (Manual) 24.1 TH/MM3 (1.8-7.7) 39.0 TH/MM3 (1.8-7.7) Albumin 1.7 GM/DL (3.4-5.0) 1.7 GM/DL (3.4-5.0) Calcium Level 8.0 MG/DL (8.5-10.1) 7.9 MG/DL (8.5-10.1) Alkaline Phosphatase 305 U/L (45-117) 339 U/L (45-117) Aspartate Amino Transf (AST/SGOT) 64 U/L (15-37) 74 U/L (15-37) Total Bilirubin 23.4 MG/DL (0.2-1.0) 25.1 MG/DL (0.2-1.0) Sodium Level 132 MEQ/L (136-145) 133 MEQ/L (136-145) Potassium Level 3.3 MEQ/L (3.5-5.1) Carbon Dioxide Level 18.7 MEQ/L (21.0-32.0) 9.8 MEQ/L (21.0-32.0) Estimat Glomerular Filtration Rate 77 ML/MIN (>89) 68 ML/MIN (>89) Ammonia 77 MCMOL/L (11-32) 53 MCMOL/L (11-32) Prothrombin Time 16.3 SEC (9.8-11.6) 16.5 SEC (9.8-11.6) Myelocytes 1 % (0-0) Blood Urea Nitrogen 22 MG/DL (7-18) Anion Gap 19 MEQ/L (5-15) Imaging Last 72 hours Impressions Chest X-Ray 11/29/17 0000 Signed Impressions: Service Date/Time: Wednesday, November 29, 2017 13:52 - CONCLUSION: No acute disease. No significant change has occurred. Cruz Shipman MD PE at Discharge Pt Condition on Discharge: Guarded Shayy Alonzo Nov 29, 2017 21:41
== END 2017-11-29 18:30 | disposition left against medical advice (07) | DRG 432 ==
LOC: NEPC 08:22 → NEDA 13:10 → HIMN 15:10 → OBSVTOIN 16:44 → N05B 11-27 19:00
PROVIDERS: ADMIT Family Medicine; ATTEND Family Medicine
PROC: 0W9G3ZZ Drainage of Peritoneal Cavity, Percutaneous Approach (ICD-10-PCS; principal; 2017-11-25)
DX: K70.31 Alcoholic cirrhosis of liver with ascites (principal); K65.2 Spontaneous bacterial peritonitis; K70.11 Alcoholic hepatitis with ascites; K72.90 Hepatic failure, unspecified without coma; K76.6 Portal hypertension; E87.1 Hypo-osmolality and hyponatremia; J98.11 Atelectasis; E87.6 Hypokalemia; J45.909 Unspecified asthma, uncomplicated; R60.1 Generalized edema; I86.8 Varicose veins of other specified sites; L29.9 Pruritus, unspecified; F10.20 Alcohol dependence, uncomplicated; F12.90 Cannabis use, unspecified, uncomplicated; F17.210 Nicotine dependence, cigarettes, uncomplicated; Y90.0 Blood alcohol level of less than 20 mg/100 ml; Z91.19 Patient's noncompliance with other medical treatment and regimen
CPT/HCPCS: 49083; 71046; 74176; 76937; 80048; 80053; 80076; 80307; 81001; 82042; 82140; 82150; 82945; 82948; 83605; 83615; 84157; 85007; 85025; 85027; 85610; 85730; 87040; 87070; 87205; 87641; 88112; 89051; 99285; C1729; J0696; J2060; J2920; J3480

== ENCOUNTER 2017-11-30 15:46 | Inpatient (IN) | payer OTHER ==
[~2017-11-30] VITALS: Ht 188 cm; Wt 115.1 kg
[2017-11-30 16:02] VITALS: BP 150/55; PULSE 120; RESP 20; TEMP 98.7; O2SAT 100
[2017-11-30 16:38] LABS: AUTOMATED NEUTROPHIL # 35.8 TH/MM3 (1.8-7.7); BASOPHIL # 0.1 TH/MM3 (0-0.2); BASOPHIL % 0.2 % (0.0-2.0); EOSINOPHIL # 0.1 TH/MM3 (0-0.4); EOSINOPHIL % 0.1 % (0.0-4.0); HEMATOCRIT 42.7 % (39.0-51.0); HEMOGLOBIN 15.1 GM/DL (13.0-17.0); LYMPHOCYTE # 2.1 TH/MM3 (1.0-4.8); MEAN CELL VOLUME 101.7 FL (80.0-100.0); MEAN CORPUSCULAR HGB CONC 35.4 % (32.0-36.0); MEAN PLATELET VOLUME 7.5 FL (7.0-11.0); MONO % 11.1 % (0.0-8.0); MONOCYTE # 4.7 TH/MM3 (0-0.9); NEUT % 83.6 % (16.0-70.0); PLATELET COUNT 310 TH/MM3 (150-450); RED CELL DISTRIBUTION WIDTH 16.9 % (11.6-17.2); WHITE BLOOD COUNT 42.8 TH/MM3 (4.0-11.0)
[2017-11-30 16:51] LABS: INTERNATIONAL NORMALIZED RATIO 1.6 RATIO; PROTHROMBIN TIME - PATIENT 15.7 SEC (9.8-11.6)
[2017-11-30 17:05] LABS: ALT (GPT) 62 U/L (12-78)
[2017-11-30 17:06] LABS: AST (GOT) 89 U/L (15-37); BICARBONATE 20.9 MEQ/L (21.0-32.0); BLOOD UREA NITROGEN 23 MG/DL (7-18); CALCIUM 8.3 MG/DL (8.5-10.1); CHLORIDE 100 MEQ/L (98-107); GLOMERULAR FILTRATION RATE 59 ML/MIN (>89); GLUCOSE,RANDOM 81 MG/DL (74-106); SODIUM (NA) 132 MEQ/L (136-145)
--- NOTE | 2017-11-30 17:12 | PD ---
HPI Chief Complaint: Medical Clearance Time Seen by Provider: 16:13 Travel History International Travel<30 days: No Contact w/Intl Traveler<30days: No Traveled to known affect area: No History of Present Illness HPI Patient is a 37-year-old male was recently admitted for acute on chronic liver failure with bilirubins in the 25 presents the emergency department today for readmission. Patient states his been feeling weak ever since he left to the hospital AGAINST MEDICAL ADVICE. Patient states that initially when he left it was because he had to take care of some "personal business" which he clarifies to mean he had to take care of his condo at home. He states he got home and he sat on the couch and really had little energy to do anything to his roommate suggested he come back in to be seen. He also does admit that he stopped to have an alcoholic beverage after being discharged. According to his records the patient had been admitted for what appeared to be severe alcoholic liver failure bilirubins in the 25 range INR is 1.6-1.7. On a previous admission in October of this year the patient was also noted to have a liver mass was seen by oncology it was recommended that the patient proceed with outpatient follow- up for his liver mass. Patient denies any pain at this time, denies any chest pain abdominal pain nausea vomiting diarrhea. He states that his abdomen is distended and it interferes with his breathing. PFSH Past Medical History Asthma: Yes Autoimmune Disease: No Cancer: No Cardiovascular Problems: No Cirrhosis: Yes Diabetes: No Diminished Hearing: No Endocrine: No Gastrointestinal Disorders: Yes GERD: Yes Genitourinary: No Hepatitis: Yes (ALCOHOL INDUCED) Immune Disorder: No Musculoskeletal: No Neurologic: No Psychiatric: No Reproductive: No Tetanus Vaccination: > 5 Years Influenza Vaccination: No ?: Not Past Surgical History Other Surgery: Yes (fatty tumor removed from skull) Social History Alcohol Use: Yes (~3 BEERS DAILY) Tobacco Use: Yes (09/29 PPD) Substance Use: Yes (Marijuana, daily, yesterday) Allergies-Medications (Allergen,Severity, Reaction): Coded Allergies: No Known Allergies (Verified , 11/24/17) Reported Meds & Prescriptions Reported Meds & Active Scripts Active Reported Potassium Chloride ER (Potassium Chloride) 10 Meq Cap 10 Meq PO BID Review of Systems Except as stated in HPI: all other systems reviewed are Neg Physical Exam Narrative GENERAL: Well-developed, well-nourished, obviously jaundiced and icteric. SKIN: Focused skin assessment warm/dry. Jaundice, spider angiomata HEAD: Atraumatic. Normocephalic. EYES: Pupils equal and round. Positive icterus. No injection or drainage. ENT: No nasal bleeding or discharge. Mucous membranes pink and moist. NECK: Trachea midline. No JVD. CARDIOVASCULAR: Regular rate and rhythm. No murmur appreciated. RESPIRATORY: No accessory muscle use. Clear to auscultation. Breath sounds equal bilaterally. GASTROINTESTINAL: Abdomen soft, non-tender, mildly distended. Positive fluid wave. No peritoneal signs, no rebound no percussive tenderness abdomen is benign soft and nontender.. Hepatic and splenic margins not palpable. MUSCULOSKELETAL: No obvious deformities. No clubbing. No cyanosis. No edema. NEUROLOGICAL: Awake and alert. Somewhat odd in behavior, acting almost drunk. Cranial nerves II through XII are grossly intact and nonfocal, 5 out of 5 strength in all 4 extremity's, alert and awake and oriented. PSYCHIATRIC: Appropriate mood and affect; insight and judgment normal. Data Data Last Documented VS Vital Signs Date Time Temp Pulse Resp B/P (MAP) Pulse Ox O2 Delivery O2 Flow Rate FiO2 11/30/17 16:02 98.7 120 20 150/55 (86) 100 Orders Orders Complete Blood Count With Diff (11/30/17 16:05) Comprehensive Metabolic Panel (11/30/17 16:05) Lipase (11/30/17 16:05) Prothrombin Time / Inr (Pt) (11/30/17 16:05) Act Partial Throm Time (Ptt) (11/30/17 16:05) Ammonia (11/30/17 16:05) Alcohol (Ethanol) (11/30/17 16:13) Chest, Single Ap (11/30/17 ) Blood Culture (11/30/17 17:19) Lactic Acid (11/30/17 17:19) Ceftriaxone Inj (Rocephin Inj) (11/30/17 17:30) Admit Order (Ed Use Only) (11/30/17 ) Admit To Inpatient (11/30/17 ) Vital Signs (Adult) Q4H (11/30/17 17:21) Activity Oob With Assistance (11/30/17 17:21) Electrogalvanizing Machine Operator / Telemetry .CONTINUOUS (11/30/17 17:21) Diet Heart Healthy (11/30/17 Dinner) Sodium Chloride 0.9% Flush (Ns Flush) (11/30/17 17:30) Sodium Chloride 0.9% Flush (Ns Flush) (11/30/17 21:00) Comprehensive Metabolic Panel (12/01/17 06:00) Complete Blood Count With Diff (12/01/17 06:00) Pt Request For Service (11/30/17 17:21) Case Management Consult (11/30/17 17:21) Naloxone Inj (Narcan Inj) (11/30/17 17:30) Inpatient Certification (11/30/17 ) Labs Laboratory Tests Test 11/30/17 16:25 White Blood Count 42.8 TH/MM3 Red Blood Count 4.20 MIL/MM3 Hemoglobin 15.1 GM/DL Hematocrit 42.7 % Mean Corpuscular Volume 101.7 FL Mean Corpuscular Hemoglobin 36.0 PG Mean Corpuscular Hemoglobin Concent 35.4 % Red Cell Distribution Width 16.9 % Platelet Count 310 TH/MM3 Mean Platelet Volume 7.5 FL Neutrophils (%) (Auto) 83.6 % Lymphocytes (%) (Auto) 5.0 % Monocytes (%) (Auto) 11.1 % Eosinophils (%) (Auto) 0.1 % Basophils (%) (Auto) 0.2 % Neutrophils # (Auto) 35.8 TH/MM3 Lymphocytes # (Auto) 2.1 TH/MM3 Monocytes # (Auto) 4.7 TH/MM3 Eosinophils # (Auto) 0.1 TH/MM3 Basophils # (Auto) 0.1 TH/MM3 CBC Comment AUTO DIFF Differential Total Cells Counted 100 Neutrophils % (Manual) 78 % Band Neutrophils % 8 % Lymphocytes % 7 % Monocytes % 7 % Neutrophils # (Manual) 36.8 TH/MM3 Differential Comment FINAL DIFF MANUAL Platelet Estimate NORMAL Platelet Morphology Comment NORMAL Prothrombin Time 15.7 SEC Prothromb Time International Ratio 1.6 RATIO Activated Partial Thromboplast Time 28.3 SEC Blood Urea Nitrogen 23 MG/DL Creatinine 1.34 MG/DL Random Glucose 81 MG/DL Total Protein 7.8 GM/DL Albumin 2.0 GM/DL Calcium Level 8.3 MG/DL Alkaline Phosphatase 379 U/L Aspartate Amino Transf (AST/SGOT) 89 U/L Alanine Aminotransferase (ALT/SGPT) 62 U/L Total Bilirubin 27.0 MG/DL Sodium Level 132 MEQ/L Potassium Level 3.1 MEQ/L Chloride Level 100 MEQ/L Carbon Dioxide Level 20.9 MEQ/L Anion Gap 11 MEQ/L Estimat Glomerular Filtration Rate 59 ML/MIN Ammonia 21 MCMOL/L Lipase 956 U/L Ethyl Alcohol Level 16 MG/DL MDM Medical Decision Making Medical Screen Exam Complete: Yes Emergency Medical Condition: Yes Differential Diagnosis Acute on chronic liver disease, poor social circumstance, alcoholism, poor compliance. Narrative Course Patient room to the emergency department, his white count had been trending upward during his last admission and apparently inpatient physicians were trying to ascertain the cause of his white count when he decided to leave AGAINST MEDICAL ADVICE. The patient also has documented noncompliance with his medications including but not limited to his lactulose. Patient at this time is stating that he is willing and would like to proceed with treatment. He is also looking forward to being placed on the liver transplant List. Patient was discussed with Dr. Hunter's STEVEDORING SUPERINTENDENT who states that the patient has been discharged from the practice for noncompliance. Patient was discussed with Dr. Good who is willing to admit the patient now, she is concerned with a white count the patient may have bacterial peritonitis spontaneous or could be induced by paracentesis procedure performed on last admission. Will be covered with Rocephin and Flagyl, blood cultures drawn and lactic acid sent. Diagnosis Primary Impression: Cirrhosis with alcoholism Qualified Codes: K70.31 - Alcoholic cirrhosis of liver with ascites Admitting Information Admitting Physician Requests: Admit Condition: Stable Eddie Garcia MD Nov 30, 2017 17:12
[2017-11-30 17:18] LABS: CREATININE 1.34 MG/DL (0.60-1.30)
[2017-11-30 17:20] LABS: ALKALINE PHOSPHATASE 379 U/L (45-117); TOTAL PROTEIN 7.8 GM/DL (6.4-8.2)
[2017-11-30] MEDS ORDERED: NALOXONE HCL 0.4 MG/ML AMP IV PUSH PRN (17:30)
[2017-11-30] MEDS ORDERED: cefTRIAXone INJ 1,000 MG in SODIUM CHLORIDE 0.9% INJ 100 ML IV ONE (17:30)
--- NOTE | 2017-11-30 17:32 | RADRPT ---
EXAM DATE/TIME: 11/30/2017 17:13 [place] COMPARISON: No previous studies available for comparison. INDICATIONS : Shortness of breath. MEDICAL HISTORY : Gastroesophageal reflux disease. Hepatitis. ETOH use daily. Asthma. SURGICAL HISTORY : None. ENCOUNTER: Initial ACUITY: 1 day PAIN SCORE: 0/10 LOCATION: Bilateral chest FINDINGS: A single view of the chest demonstrates the lungs to be symmetrically aerated without evidence of mas s, infiltrate or effusion. The cardiomediastinal contours are unremarkable. Osseous structures are intact. CONCLUSION: No acute disease. Braden Akers Jr., MD on November 30, 2017 at 17:30 Board Certified Radiologist. This report was verified electronically.
[2017-11-30 17:36] LABS: BANDS 8 % (0-6); LYMPHOCYTES 7 % (9-44); MONOCYTES 7 % (0-8); NEUTROPHIL # MANUAL DIFF 36.8 TH/MM3 (1.8-7.7); POLYS (SEG NEUTROPHILS) 78 % (16-70)
[2017-11-30] MEDS ORDERED: metroNIDAZOLE 500 MG INJ 100 ML IV ONE (18:00)
--- NOTE | 2017-11-30 19:11 | HHI.HP ---
HPI Service [facility] Primary Care Physician Unknown Admission Diagnosis Liver Failure, Leukocytosis, R/o bacterial peritonitis. Diagnoses: Travel History International Travel<30 Days: No Contact w/Intl Traveler <30 Da: No Traveled to Known Affected Are: No History of Present Illness hx from patient, ER MD communication and review of med records signed out ama yesterday and came back today pt was under DR Hunter's service yesterday- however, when ER MD called for Dr Hunter today for admission vs discharge, his nurse has reported he would no longer see this patient as he signed out ama several times? thus admission was given to us. pt himself reported he "freaked out" after learning severity of his disease from different people during his hospitalization and thus signed out ama but returned back as he continued to have severe itching and pain pain is at abdomen with distention from ascites had paracentesis during his hospital stay denies fever at home before his oct visit here, never been hospitalized, never knew of his liver dx - according to patient moaning in pain all the time at home notes from last admission reviewed Review of Systems Except as stated in HPI: all other systems reviewed are Neg Past Family Social History Past Medical History liver cirrhosis Past Surgical History tumor taken out in [employer] wisdom teeth Allergies: Coded Allergies: No Known Allergies (Verified , 11/24/17) Family History grandfather- dm mom- neuropathy dad - herniated disk in his back Social History smokes now about 4-5 cigarrettes a day drinks heavily usually , but now cutting off, had a few drinks this morning used to do cocaine, but no iv drugs Physical Exam Vital Signs Vital Signs Date Time Temp Pulse Resp B/P (MAP) Pulse Ox O2 Delivery O2 Flow Rate FiO2 11/30/17 16:02 98.7 120 20 150/55 (86) 100 Physical Exam GENERAL: This is a well-nourished, well-developed patient, in no apparent distress. SKIN: jaundiced HEAD: Atraumatic. Normocephalic. No temporal or scalp tenderness. EYES: scleral icterus. No injection or drainage. ENT: Nose without bleeding, purulent drainage or septal hematoma. Airway patent. NECK: Trachea midline. No JVD Supple, nontender, no meningeal signs. CARDIOVASCULAR: Regular rate and rhythm without murmurs, gallops, or rubs. RESPIRATORY: Clear to auscultation. Breath sounds equal bilaterally. No wheezes , rales, or rhonchi. GASTROINTESTINAL: Abdomen soft, tenderness diffusely, distended abdomen, fluid thrill. No guarding. MUSCULOSKELETAL: Extremities without clubbing, cyanosis, or edema. No calf tenderness. NEUROLOGICAL: Awake and alert. Motor and sensory grossly within normal limits. Normal speech. Laboratory Laboratory Tests Test 11/30/17 16:25 11/30/17 17:58 White Blood Count 42.8 Red Blood Count 4.20 Hemoglobin 15.1 Hematocrit 42.7 Mean Corpuscular Volume 101.7 Mean Corpuscular Hemoglobin 36.0 Mean Corpuscular Hemoglobin Concent 35.4 Red Cell Distribution Width 16.9 Platelet Count 310 Mean Platelet Volume 7.5 Neutrophils (%) (Auto) 83.6 Lymphocytes (%) (Auto) 5.0 Monocytes (%) (Auto) 11.1 Eosinophils (%) (Auto) 0.1 Basophils (%) (Auto) 0.2 Neutrophils # (Auto) 35.8 Lymphocytes # (Auto) 2.1 Monocytes # (Auto) 4.7 Eosinophils # (Auto) 0.1 Basophils # (Auto) 0.1 CBC Comment AUTO DIFF Differential Total Cells Counted 100 Neutrophils % (Manual) 78 Band Neutrophils % 8 Lymphocytes % 7 Monocytes % 7 Neutrophils # (Manual) 36.8 Differential Comment FINAL DIFF MANUAL Platelet Estimate NORMAL Platelet Morphology Comment NORMAL Prothrombin Time 15.7 Prothromb Time International Ratio 1.6 Activated Partial Thromboplast Time 28.3 Blood Urea Nitrogen 23 Creatinine 1.34 Random Glucose 81 Total Protein 7.8 Albumin 2.0 Calcium Level 8.3 Alkaline Phosphatase 379 Aspartate Amino Transf (AST/SGOT) 89 Alanine Aminotransferase (ALT/SGPT) 62 Total Bilirubin 27.0 Sodium Level 132 Potassium Level 3.1 Chloride Level 100 Carbon Dioxide Level 20.9 Anion Gap 11 Estimat Glomerular Filtration Rate 59 Ammonia 21 Lipase 956 Ethyl Alcohol Level 16 Lactic Acid Level 2.0 Date/Time Source Procedure Growth Status 11/30/17 17:58 Blood Line Aerobic Blood Culture Pending Received 11/30/17 17:58 Blood Line Anaerobic Blood Culture Pending Received Result Diagram: 11/30/17 1625 11/30/17 1625 Imaging Last 48 hours Impressions Chest X-Ray 11/30/17 0000 Signed Impressions: Service Date/Time: Thursday, November 30, 2017 17:13 - CONCLUSION: No acute disease. MD Mariann Becker Jr. VTE Risk Assessment Capramila VTE Risk Assessment: Mod/High Risk (score >= 2) Caprini Risk Assessment Model Point Value = 1 Point Value = 2 Point Value = 3 Point Value = 5 Age 41-60 Minor surgery BMI > 25 kg/m2 Swollen legs Varicose veins or History of unexplained or recurrent spontaneous Oral contraceptives or hormone replacement Sepsis (< 1 month) Serious lung disease, including pneumonia (< 1 month) Abnormal pulmonary function Acute myocardial infarction Congestive heart failure (< 1 month) History of inflammatory bowel disease Medical patient at bed rest Age 61-74 Arthroscopic surgery Major open surgery (> 45 min) Laparoscopic surgery (> 45 min) Malignancy Confined to bed (> 72 hours) Immobilizing plaster cast Central venous access Age >= 75 History of VTE Family history of VTE Factor V Leiden Prothrombin [id number] Lupus anticoagulant Anticardiolipin antibodies Elevated serum homocysteine Heparin-induced thrombocytopenia Other congenital or acquired thrombophilia Stroke (< 1 month) Elective arthroplasty Hip, pelvis, or leg fracture Acute spinal cord injury (< 1 month) Prophylaxis Regimen Total Risk Factor Score Risk Level Prophylaxis Regimen 0-1 Low Early ambulation 2 Moderate Order ONE of the following: *Sequential Compression Device (SCD) *Heparin 5000 units SQ BID 3-4 Higher Order ONE of the following medications: *Heparin 5000 units SQ TID *Enoxaparin/Lovenox 40 mg SQ daily (WT < 150 kg, CrCl > 30 mL/min) *Enoxaparin/Lovenox 30 mg SQ daily (WT < 150 kg, CrCl > 10-29 mL/min) *Enoxaparin/Lovenox 30 mg SQ BID (WT < 150 kg, CrCl > 30 mL/min) AND/OR *Sequential Compression Device (SCD) 5 or more Highest Order ONE of the following medications: *Heparin 5000 units SQ TID (Preferred with Epidurals) *Enoxaparin/Lovenox 40 mg SQ daily (WT < 150 kg, CrCl > 30 mL/min) *Enoxaparin/Lovenox 30 mg SQ daily (WT < 150 kg, CrCl > 10-29 mL/min) *Enoxaparin/Lovenox 30 mg SQ BID (WT < 150 kg, CrCl > 30 mL/min) AND *Sequential Compression Device (SCD) Assessment and Plan Assessment and Plan Impression: Liver Cirrhosis Leukocytosis with left shift- possible underlying infection, so far ascitic fluid cx negative, no fever hx of hepatic encephalopathy ascites- s/p paracentesis Plan: resume rocephin and flagyl for now no obvious source of infection, possible reactive will reconsult ID for further advise will follow cx pt is explained again in detail the prognosis of cirrhosis he states he may consider hospice mom is coming today pm from out of town will reconsult palliative care for further clarifications full code per his latest discussions with palliative care a few days ago resum meds scd ranitidine Discussed Condition With patient, ER Physician Certification 2 Midnight Certification Type: Admission for Inpatient Services Order for Inpatient Services The services are ordered in accordance with Medicare regulations or non- Medicare payer requirements, as applicable. In the case of services not specified as inpatient-only, they are appropriately provided as inpatient services in accordance with the 2-midnight benchmark. Estimated LOS (days): 2 days is the estimated time the patient will need to remain in the hospital, assuming treatment plan goals are met and no additional complications. Post-Hospital Plan: Home Tex Acuña MD Nov 30, 2017 19:11
[2017-11-30] MEDS ORDERED: POTASSIUM CHLORIDE 25 MEQ EFFERVESCENT TAB PO ONE (19:30)
[2017-11-30 20:05] VITALS: BP 146/75; PULSE 114; RESP 16; O2SAT 98
[2017-11-30] MEDS: hydrOXYzine HCL 25 MG TAB PO PRN (20:47)
[2017-11-30] MEDS: SODIUM CHLORIDE 0.9% FLUSH 10 ML FLUSH IV FLUSH SCH (21:00)
[2017-11-30] MEDS: POTASSIUM CHLORIDE 10 MEQ CAP PO SCH (21:30)
[2017-11-30] MEDS: PENTOXIFYLLINE 400 MG CONTROLLED RELEASE TAB PO SCH (21:31)
[2017-11-30] MEDS: RIFAXIMIN 550 MG TAB PO SCH (21:31)
[2017-11-30] MEDS: RANITIDINE HCL SYRUP 150 MG/10 ML UDC PO SCH (21:31)
[2017-12-01] MEDS: metroNIDAZOLE 500 MG INJ 100 ML IV SCH ×5 (00:08→22:55)
[2017-12-01 00:21] VITALS: BP 136/78; PULSE 113; RESP 22; TEMP 98.2; O2SAT 100
[2017-12-01 04:00] VITALS: BP 131/64; PULSE 105; RESP 20; TEMP 98.3; O2SAT 97
[2017-12-01 04:24] LABS: AUTOMATED NEUTROPHIL # 29.2 TH/MM3 (1.8-7.7); BASOPHIL # 0.1 TH/MM3 (0-0.2); BASOPHIL % 0.3 % (0.0-2.0); EOSINOPHIL # 0.2 TH/MM3 (0-0.4); EOSINOPHIL % 0.4 % (0.0-4.0); HEMATOCRIT 35.2 % (39.0-51.0); HEMOGLOBIN 12.4 GM/DL (13.0-17.0); LYMPH % 5.3 % (9.0-44.0); LYMPHOCYTE # 1.8 TH/MM3 (1.0-4.8); MEAN CELL VOLUME 101.7 FL (80.0-100.0); MEAN CORPUSCULAR HEMOGLOBIN 35.8 PG (27.0-34.0); MEAN CORPUSCULAR HGB CONC 35.2 % (32.0-36.0); MEAN PLATELET VOLUME 7.7 FL (7.0-11.0); MONO % 10.4 % (0.0-8.0); MONOCYTE # 3.6 TH/MM3 (0-0.9); NEUT % 83.6 % (16.0-70.0); PLATELET COUNT 210 TH/MM3 (150-450); RED BLOOD COUNT 3.46 MIL/MM3 (4.50-5.90); RED CELL DISTRIBUTION WIDTH 16.9 % (11.6-17.2); WHITE BLOOD COUNT 34.9 TH/MM3 (4.0-11.0)
[2017-12-01 04:40] LABS: ALBUMIN 1.5 GM/DL (3.4-5.0); ALKALINE PHOSPHATASE 279 U/L (45-117); ALT (GPT) 46 U/L (12-78); AST (GOT) 69 U/L (15-37); BICARBONATE 17.6 MEQ/L (21.0-32.0); BLOOD UREA NITROGEN 22 MG/DL (7-18); CHLORIDE 103 MEQ/L (98-107); GLOMERULAR FILTRATION RATE 56 ML/MIN (>89); GLUCOSE,RANDOM 121 MG/DL (74-106); SODIUM (NA) 133 MEQ/L (136-145); TOTAL PROTEIN 6.1 GM/DL (6.4-8.2)
[2017-12-01 04:41] LABS: TOTAL BILIRUBIN ADULT 22.8 MG/DL (0.2-1.0)
[2017-12-01] MEDS: hydrOXYzine HCL 25 MG TAB PO PRN ×2 (05:49→18:35)
[2017-12-01] MEDS: PENTOXIFYLLINE 400 MG CONTROLLED RELEASE TAB PO SCH ×3 (05:49→21:22)
[2017-12-01 07:05] LABS: BANDS 3 % (0-6); LYMPHOCYTES 1 % (9-44); MONOCYTES 11 % (0-8); MYELOCYTES 1 % (0-0); NEUTROPHIL # MANUAL DIFF 30.7 TH/MM3 (1.8-7.7); POLYS (SEG NEUTROPHILS) 84 % (16-70)
[2017-12-01 08:00] VITALS: BP 122/68; PULSE 104; RESP 20; TEMP 95.7; O2SAT 98
[2017-12-01] MEDS ORDERED: PHYTONADIONE 5 MG TAB PO SCH (09:00)
[2017-12-01] MEDS: LACTULOSE SYRUP 20 GM/30 ML CUP PO SCH ×3 (09:17→18:35)
[2017-12-01] MEDS: POTASSIUM CHLORIDE 10 MEQ CAP PO SCH ×2 (09:17→21:05)
[2017-12-01] MEDS: RIFAXIMIN 550 MG TAB PO SCH ×2 (09:17→21:06)
[2017-12-01] MEDS: SODIUM CHLORIDE 0.9% FLUSH 10 ML FLUSH IV FLUSH SCH ×2 (09:18→21:07)
[2017-12-01] MEDS: RANITIDINE HCL SYRUP 150 MG/10 ML UDC PO SCH (11:08)
[2017-12-01 12:00] VITALS: BP 114/55; PULSE 100; RESP 20; TEMP 96.3; O2SAT 98
--- NOTE | 2017-12-01 15:28 | HHI.PR ---
Subjective Remarks awake and alert no chest pain or shortness of breath abdominal distention voiding freely complains of itching Objective Vitals Vital Signs Date Time Temp Pulse Resp B/P (MAP) Pulse Ox O2 Delivery O2 Flow Rate FiO2 12/01/17 12:00 96.3 100 20 114/55 (74) 98 12/01/17 08:00 95.7 104 20 122/68 (86) 98 12/01/17 06:55 18 12/01/17 04:00 98.3 105 20 131/64 (86) 97 12/01/17 02:21 20 12/01/17 00:21 98.2 113 22 136/78 (97) 100 11/30/17 23:57 11/30/17 20:05 114 16 146/75 (98) 98 Room Air 11/30/17 16:02 98.7 120 20 150/55 (86) 100 I/O 11/30/17 11/30/17 11/30/17 12/01/17 12/01/17 12/01/17 07:00 15:00 23:00 07:00 15:00 23:00 Intake Total 100 ml 880 ml Output Total 1200 ml Balance 100 ml -320 ml Intake Oral 780 ml IV Total 100 ml 100 ml Output Urine Total 1200 ml # Bowel Movements 1 Result Diagram: 12/01/17 0305 12/01/17 0305 Imaging Last Impressions Chest X-Ray 11/30/17 0000 Signed Impressions: Service Date/Time: Thursday, November 30, 2017 17:13 - CONCLUSION: No acute disease. Braden Akers Jr., MD Objective Remarks + icteresia lungs- no rales regular rhythm abdomen-distended but soft + edema A/P Assessment and Plan 37 years old male Alcoholic liver cirrhosis with ascites S/P Paracentesis- 3/2 - 4L out -start diuretics- cautiously - with monitoring of renal functions - start Aldactone 25 mg po bid today -. start Lasix in am if creatinine stable - ff BMP, ff LFTs - start Librium 25 mg po tid Leukocytosis- possible SBP - ff cultures from last admission 11/25 - no growth so far -continue on IV flagyl and Ceftriaxone - ID service reconsulted hx of hepatic encephalopathy - Lactulose bid - monitor MS Pruritus-due to Liver disease - on Atarax - trial of cholestyramine Hypokalemia- replace and ff Acute on CKI - increase in creatinine may be due to ineffective circulating volume from ascites -introduce diuretics gradually with close monitoring of renal functions Palliative care service consulted full code per his latest discussions with palliative care a few days ago scd PPI Isidro Fuentes MD Dec 01, 2017 15:28
[2017-12-01] MEDS ORDERED: POTASSIUM CHLORIDE 25 MEQ EFFERVESCENT TAB PO ONE (15:45)
--- NOTE | 2017-12-01 16:17 | PD.CONS ---
Consult Service Palliative Care Consult Requested By Dr. Acuña Primary Care Physician Jose ordered, DO Reason for Consultation a. To assist with evaluation and management of symptoms including: Pain, pruritus b. To assist medical decision maker(s) with: better understanding of current medical conditions; weighing benefits/burdens of medical treatment options; making medical treatment decisions. HPI History of Present Illness This is a 37-year-old male with a long history of substance abuse who presented to the emergency room with a complaint of abdominal pain, fatigue and malaise one day after signing out AGAINST MEDICAL ADVICE. This is his third admission in a month for gastrointestinal symptoms. He was seen in [facility] because his friends told him he was jaundiced. During that admission he underwent CT of the abdomen and pelvis with contrast showing a very abnormal appearance of the liver which was diffusely enlarged somewhat heterogeneous with the appearance of multiple mass lesions, the largest of which was identified medially in the right hepatic lobe measuring 4.8 cm in diameter with mild ascites. It also showed signs of portal hypertension with spontaneous portosystemic shunt from the splenic vein to the IVC in combination with multiple prominent lymph nodes juxtaposed between the iron hepatis and pancreas , concerning for hepatocellular carcinoma with metastasis. Gallbladder lumen was decompressed and the gallbladder wall markedly thickened. MRI of the abdomen with and without contrast showed hepatomegaly with steatosis and morphology suggesting cirrhosis with no definite liver lesion identified. The areas described on recent CT appear to represent asymmetric, more severe, focal fat deposition. Portal hypertension including splenomegaly, small volume of ascites and splenorenal shunt were noted with persistent gallbladder wall edema. He was seen by gastroenterology and oncology during that visit. No biopsy was done as the surgeon could not identify a mass to biopsy. Tumor markers were ordered to include CA 199 antigen, carcinoembryonic antigen, tumor marker AFP, ceruloplasmin and alpha-1 antitrypsin. Alpha 1 antitrypsin was mildly elevated at 251 (100-190) and ceruloplasmin was mildly elevated at 40 (18 -36). The other tumor markers were within normal range. Review of Systems ROS Limitations: Clinical Condition Constitutional: COMPLAINS OF: Weight gain Integumentary: COMPLAINS OF: Abnormal pigmentation, Pruritus, Non-healing sores Psychiatric: COMPLAINS OF: Anxiety Past Family Social History Coded Allergies: No Known Allergies (Verified , 3/1/18) Past Medical History Recent diagnosis of alcoholic liver cirrhosis History of asthma Daily alcohol usage . Past Surgical History tumor taken out in [employer] wisdom teeth Paracentesis today 2017, 4.4 L of fluid removed from his abdomen . Reported Medications Reported Meds & Active Scripts Active Reported Potassium Chloride ER (Potassium Chloride) 10 Meq Cap 10 Meq PO BID . Current Medications Medications (Trade) Dose Ordered Sig/Virgil Route Start Time Stop Time Status Last Admin (NS Flush) 2 ml UNSCH PRN IV FLUSH 11/30/17 17:30 (NS Flush) 2 ml BID IV FLUSH 11/30/17 21:00 12/01/17 09:18 (Narcan Inj) 0.4 mg UNSCH PRN IV PUSH 11/30/17 17:30 Metronidazole 100 ml @ 100 mls/hr Q6H IV 12/01/17 00:00 12/01/17 05:49 Ceftriaxone Sodium 1000 mg/ Sodium Chloride 100 ml @ 200 mls/hr Q24H IV 12/01/17 17:00 (Roxicodone) 5 mg Q8H PRN PO 11/30/17 18:45 12/01/17 11:08 (Atarax) 25 mg Q6H PRN PO 11/30/17 19:30 12/01/17 05:49 (Xifaxan) 550 mg BID PO 11/30/17 21:00 12/01/17 09:17 (TRENtal SR) 400 mg Q8HR PO 11/30/17 22:00 12/01/17 05:49 (Lactulose Liq) 30 ml TID PO 12/01/17 09:00 12/01/17 09:17 (Mephyton) 5 mg DAILY PO 12/01/17 09:00 12/01/17 11:09 (KCl) 10 meq BID PO 11/30/17 21:00 12/01/17 09:17 (Questran 4 Gm Pkt) 4 gm Q12HR PO 12/01/17 21:00 UNV (Protonix) 40 mg DAILY PO 12/02/17 09:00 UNV . Family History grandfather- dm, alive mom- neuropathy, alive dad - herniated disk in his back, alive . Substance Use Tobacco: Smokes one quarter pack daily since he was a teenager. Alcohol: Drinks at least 1/2 L of bourbon daily Prescription med abuse: No history. Illicits: Admits to marijuana, denies IV drug use. Chart review indicates previous admission of remote IV drug use. . Psychosocial History He was born and completed high school in [place] then moved to [place] with his parents when they retired. He has never been or had children. He has never been in the armed service. He works at [employer]. Spiritual/Cultural Factors Identifies with the Christianity ovidio. . Living Will: Never completed Health Care Surrogate: Copy in medical record Durable Power of Quality Compliance Coordinator: Never completed Date completed: 11/28/2017. . Health Care Surrogate(s): He has elected his mother Linda العلي as his healthcare surrogate. . Documented care wishes: No living will available. . Today's verbally stated goals: He would not commit to alcohol cessation but states he is seeking "a high quality of life ". He is desirous of aggressive care to include intubation and resuscitation if necessary. . Family/friends goals: Mother and friend at bedside. Goals are aggressive. . Ethical and Legal Issues None noted. . Physical Exam Vital Signs Date Time Temp Pulse Resp B/P (MAP) Pulse Ox O2 Delivery O2 Flow Rate FiO2 12/01/17 12:00 96.3 100 20 114/55 (74) 98 12/01/17 08:00 95.7 104 20 122/68 (86) 98 12/01/17 06:55 18 12/01/17 04:00 98.3 105 20 131/64 (86) 97 12/01/17 02:21 20 12/01/17 00:21 98.2 113 22 136/78 (97) 100 11/30/17 23:57 11/30/17 20:05 114 16 146/75 (98) 98 Room Air 11/30/17 16:02 98.7 120 20 150/55 (86) 100 . Exam CONSTITUTIONAL/GENERAL: This is an adequately nourished patient, in no apparent distress. TUBES/LINES/DRAINS: PIV right wrist. SKIN: Significant jaundice, no rashes, or lesions. Ecchymoses on upper extremities. Multiple scabbed lesions seen on all extremities and across trunk. HEAD: Atraumatic. Normocephalic. EYES: Pupils equal and round and reactive. Extraocular motions intact. Scleral icterus. No injection or drainage. Fundi not examined. ENT: Hearing grossly normal. Nose without bleeding or purulent drainage. Throat without visible erythema, exudates, masses, or lesions. NECK: Trachea midline. Supple, nontender. No palpable thyroid enlargement or nodularity. CARDIOVASCULAR: Regular rate and rhythm, S1, S2 with 2/6 systolic ejection murmur, without gallops, or rubs. No JVD. Peripheral pulses symmetric. RESPIRATORY/CHEST: Symmetric, unlabored respirations. Clear to auscultation. Breath sounds equal bilaterally. No wheezes, rales, or rhonchi. GASTROINTESTINAL: Abdomen soft, distended, tender to palpation. Unable to evaluate organomegaly due to body habitus but noted on imaging studies to have hepatosplenomegaly. GENITOURINARY: Without palpable bladder distension. Voiding. MUSCULOSKELETAL: Extremities without clubbing, cyanosis, or edema. No joint tenderness or effusion noted. No calf tenderness. No mottling or clubbing. LYMPHATICS: No palpable cervical or supraclavicular adenopathy. NEUROLOGICAL: Arousable, dozes off during conversation, oriented. PSYCHIATRIC: No obvious anxiety/depression. no apparent hallucinations or other psychotic thought process. . Diagnostic Tests Laboratory Laboratory Tests Test 11/30/17 16:25 11/30/17 17:58 12/01/17 03:05 White Blood Count 42.8 TH/MM3 (4.0-11.0) 34.9 TH/MM3 (4.0-11.0) Red Blood Count 4.20 MIL/MM3 (4.50-5.90) 3.46 MIL/MM3 (4.50-5.90) Hemoglobin 15.1 GM/DL (13.0-17.0) 12.4 GM/DL (13.0-17.0) Hematocrit 42.7 % (39.0-51.0) 35.2 % (39.0-51.0) Mean Corpuscular Volume 101.7 FL (80.0-100.0) 101.7 FL (80.0-100.0) Mean Corpuscular Hemoglobin 36.0 PG (27.0-34.0) 35.8 PG (27.0-34.0) Mean Corpuscular Hemoglobin Concent 35.4 % (32.0-36.0) 35.2 % (32.0-36.0) Red Cell Distribution Width 16.9 % (11.6-17.2) 16.9 % (11.6-17.2) Platelet Count 310 TH/MM3 (150-450) 210 TH/MM3 (150-450) Mean Platelet Volume 7.5 FL (7.0-11.0) 7.7 FL (7.0-11.0) Neutrophils (%) (Auto) 83.6 % (16.0-70.0) 83.6 % (16.0-70.0) Lymphocytes (%) (Auto) 5.0 % (9.0-44.0) 5.3 % (9.0-44.0) Monocytes (%) (Auto) 11.1 % (0.0-8.0) 10.4 % (0.0-8.0) Eosinophils (%) (Auto) 0.1 % (0.0-4.0) 0.4 % (0.0-4.0) Basophils (%) (Auto) 0.2 % (0.0-2.0) 0.3 % (0.0-2.0) Neutrophils # (Auto) 35.8 TH/MM3 (1.8-7.7) 29.2 TH/MM3 (1.8-7.7) Lymphocytes # (Auto) 2.1 TH/MM3 (1.0-4.8) 1.8 TH/MM3 (1.0-4.8) Monocytes # (Auto) 4.7 TH/MM3 (0-0.9) 3.6 TH/MM3 (0-0.9) Eosinophils # (Auto) 0.1 TH/MM3 (0-0.4) 0.2 TH/MM3 (0-0.4) Basophils # (Auto) 0.1 TH/MM3 (0-0.2) 0.1 TH/MM3 (0-0.2) CBC Comment AUTO DIFF AUTO DIFF Differential Total Cells Counted 100 100 Neutrophils % (Manual) 78 % (16-70) 84 % (16-70) Band Neutrophils % 8 % (0-6) 3 % (0-6) Lymphocytes % 7 % (9-44) 1 % (9-44) Monocytes % 7 % (0-8) 11 % (0-8) Neutrophils # (Manual) 36.8 TH/MM3 (1.8-7.7) 30.7 TH/MM3 (1.8-7.7) Differential Comment FINAL DIFF MANUAL FINAL DIFF MANUAL Platelet Estimate NORMAL (NORMAL) NORMAL (NORMAL) Platelet Morphology Comment NORMAL (NORMAL) NORMAL (NORMAL) Prothrombin Time 15.7 SEC (9.8-11.6) Prothromb Time International Ratio 1.6 RATIO Activated Partial Thromboplast Time 28.3 SEC (24.3-30.1) Blood Urea Nitrogen 23 MG/DL (7-18) 22 MG/DL (7-18) Creatinine 1.34 MG/DL (0.60-1.30) 1.40 MG/DL (0.60-1.30) Random Glucose 81 MG/DL (74-106) 121 MG/DL (74-106) Total Protein 7.8 GM/DL (6.4-8.2) 6.1 GM/DL (6.4-8.2) Albumin 2.0 GM/DL (3.4-5.0) 1.5 GM/DL (3.4-5.0) Calcium Level 8.3 MG/DL (8.5-10.1) 8.0 MG/DL (8.5-10.1) Alkaline Phosphatase 379 U/L (45-117) 279 U/L (45-117) Aspartate Amino Transf (AST/SGOT) 89 U/L (15-37) 69 U/L (15-37) Alanine Aminotransferase (ALT/SGPT) 62 U/L (12-78) 46 U/L (12-78) Total Bilirubin 27.0 MG/DL (0.2-1.0) 22.8 MG/DL (0.2-1.0) Sodium Level 132 MEQ/L (136-145) 133 MEQ/L (136-145) Potassium Level 3.1 MEQ/L (3.5-5.1) 3.2 MEQ/L (3.5-5.1) Chloride Level 100 MEQ/L (98-107) 103 MEQ/L (98-107) Carbon Dioxide Level 20.9 MEQ/L (21.0-32.0) 17.6 MEQ/L (21.0-32.0) Anion Gap 11 MEQ/L (5-15) 12 MEQ/L (5-15) Estimat Glomerular Filtration Rate 59 ML/MIN (>89) 56 ML/MIN (>89) Ammonia 21 MCMOL/L (11-32) Lipase 956 U/L (73-393) Ethyl Alcohol Level 16 MG/DL (0-5) Lactic Acid Level 2.0 mmol/L (0.4-2.0) Myelocytes 1 % (0-0) . Result Diagram: 12/01/17 0305 12/01/17 0305 Microbiology Microbiology Date/Time Source Procedure Growth Status 11/30/17 17:58 Blood Line Aerobic Blood Culture - Preliminary NO GROWTH IN 1 DAY Resulted 11/30/17 17:58 Blood Line Anaerobic Blood Culture - Preliminary NO GROWTH IN 1 DAY Resulted 11/30/17 17:45 Blood Line Aerobic Blood Culture - Preliminary NO GROWTH IN 1 DAY Resulted 11/30/17 17:45 Blood Line Anaerobic Blood Culture - Preliminary NO GROWTH IN 1 DAY Resulted Imaging Last Impressions Chest X-Ray 11/30/17 0000 Signed Impressions: Service Date/Time: Thursday, November 30, 2017 17:13 - CONCLUSION: No acute disease. Braden Akers Jr., MD . Patient/Family Conference Present at Family Conference: Patient's mother Linda, grandfather is, palliative care purpose and focus, disease pathology, potential complications. Family had multiple questions on liver transplant, which were referred to the wafer fabrication operator. Palliative care contact information was provided for any further questions or concerns. . Family Conference Time (mins): 45 Family Conference Location: Bedside Issues Discussed: * Palliative care role, purpose, approach * Additional medical, psychosocial, and spiritual history * Patients general health, functional status, and cognitive changes in the months leading up to the current hospitalization * Patient/family understanding of the current medical problems * Patient/family understanding of prognosis * Patients goals of care as best understood from advance directives and/or conversations and/or values * Current medical treatment options and benefits/burdens of those options * Likely scenarios comparing ongoing aggressive care with a transition to comfort measures only * Questions answered to the best of my ability * Palliative care contact information provided Assessment and Plan Disease Oriented Problem List: (1) Portosystemic shunt, spontaneous (2) Hyperammonemia (3) Cirrhosis with alcoholism Symptom Scale: (1) Pruritus (2) Pain, generalized Pertinent Non-Medical Issues Psychosocial:He was born and completed high school in [place] then moved to [place] with his parents when they retired. He has never been or had children. He has never been in the armed service. He works at [employer]. Spiritual:Identifies with the Christianity ovidio. Legal: None identified. Ethical issues impacting care: None identified. . Important Contacts Mother: Linda العلي . Prognosis Prognosis is guarded. He has a long history of alcohol abuse with subsequent liver decline. His meld score is 25. He voices no intention for alcohol cessation. His ammonia continues to climb and he is somewhat noncompliant with medical therapy. He is likely to experience continued decline in complications with recurrent hospitalizations. . Code Status: Full Code Plan PLAN: Legal decision maker: At this time the patient is able to make his own decisions. As his physical condition declines this could be problematic in light of his hyperammonemia. He has named his mother healthcare surrogate but did not have an alternate suggestion. Goals: Aggressive CODE STATUS: FULL CODE SYMPTOMS: * Pain: He is receiving oxycodone, without Tylenol for his pain which he states does improve the pain, however the pain resumes within a few hours. He is at risk for continued discomfort due to recurrent ascites, bedbound status and invasive lines. He is receiving oxycodone 5 mg every 8 hours as needed for pain greater than 5, which she states is not adequate to manage his pain. He was previously receiving 5 mg every 4 hours as needed for pain and stated that pain would recur prior to that dosing limit. Due to his history of alcoholism, his tolerance will be much higher. Would recommend increasing pain medication to 5 mg every 4 hours as needed for pain 1-5 and 10 mg every 4 hours for pain 6- 10. * Pruritus: He is receiving hydroxyzine, 25 mg every 6 hours as needed for itching. Will monitor use for 24 hours prior to any further dose change recommendations. Would recommend gastroenterology consultation for declining liver functions with extremely high bilirubin. Family and patient have questions on liver transplant. SUMMARY This is a 37-year-old male with a lifelong history of substance abuse to include heavy alcohol use. 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 His meld score is 25 and he is starting to have recurrent hospitalizations for the same problem. If he is unable to abstain from alcohol he cannot undergo liver transplant. His mother is insisting that he will comply with all health seeking recommendations to be able to qualify for liver transplant. Goals remain aggressive, however, he would be hospice appropriate if goals were consistent. Palliative care will continue to follow the patient during hospital course as condition evolves, to assist patient/decision-maker with understanding of their medical conditions, weighing benefits/burdens of treatment options, for clarification of goals of treatment. Additionally will assist with any symptoms of palliative concern. . Time Spent Time Periods: 11: 00-11: 45 Total Floor Time (mins): 75 Face to Face Time (mins): 45 >50% Counseling/Coord of Care: Yes Thank you for the opportunity to participate in the care of Mr. العلي. Attestation To help prompt me to consider important information that might be impacting today's encounter and assessment, information from prior notes written by myself or my colleagues may have been "brought forward" into today's note. My signature on this note, however, is an attestation that I personally performed the exam, history, and/or decision-making noted today, and, unless otherwise indicated, the interactions with patient, family, and staff as well as the review of records all occurred today. I also attest that the listed assessment and stated plan reflect my best clinical judgment today based on the combination of historical information, prior notes, and today's exam/ interactions. When time spent is documented, it refers only to time spent today by the signer, or if indicated, combined time spent today by collaborating physician/nurse practitioner. . Ariana Pedroza Dec 01, 2017 16:17
[2017-12-01 16:53] VITALS: BP 134/85; PULSE 100; RESP 18; TEMP 96.5; O2SAT 100
[2017-12-01] MEDS: cefTRIAXone INJ 1,000 MG in SODIUM CHLORIDE 0.9% INJ 100 ML IV SCH (18:34)
[2017-12-01] MEDS: chlordiazePOXIDE 25 MG CAP PO SCH (18:34)
[2017-12-01] MEDS: SPIRONOLACTONE 25 MG TAB PO SCH (18:35)
[2017-12-01 20:00] VITALS: BP 130/75; PULSE 110; RESP 18; TEMP 96.7; O2SAT 97
[2017-12-01] MEDS: CHOLESTYRAMINE 4 GM PACKET PO SCH (21:06)
[2017-12-02] VITALS (7 sets, daily range): BP systolic 104–130; BP diastolic 54–83; PULSE 69–110; RESP 17–20; TEMP 95.9–97.8; O2SAT 97–100
[2017-12-02] MEDS: hydrOXYzine HCL 25 MG TAB PO PRN ×3 (00:29→18:24)
[2017-12-02] MEDS: PENTOXIFYLLINE 400 MG CONTROLLED RELEASE TAB PO SCH ×3 (05:25→21:36)
[2017-12-02] MEDS: metroNIDAZOLE 500 MG INJ 100 ML IV SCH ×3 (05:25→18:26)
[2017-12-02 05:30] LABS: AUTOMATED NEUTROPHIL # 29.1 TH/MM3 (1.8-7.7); BASOPHIL % 0.1 % (0.0-2.0); EOSINOPHIL # 0.3 TH/MM3 (0-0.4); HEMATOCRIT 35.9 % (39.0-51.0); HEMOGLOBIN 12.8 GM/DL (13.0-17.0); LYMPH % 5.1 % (9.0-44.0); LYMPHOCYTE # 1.7 TH/MM3 (1.0-4.8); MEAN CELL VOLUME 101.6 FL (80.0-100.0); MEAN CORPUSCULAR HEMOGLOBIN 36.1 PG (27.0-34.0); MEAN CORPUSCULAR HGB CONC 35.5 % (32.0-36.0); MONOCYTE # 3.1 TH/MM3 (0-0.9); NEUT % 84.8 % (16.0-70.0); PLATELET COUNT 166 TH/MM3 (150-450); RED BLOOD COUNT 3.54 MIL/MM3 (4.50-5.90); RED CELL DISTRIBUTION WIDTH 16.5 % (11.6-17.2); WHITE BLOOD COUNT 34.3 TH/MM3 (4.0-11.0)
[2017-12-02 05:38] LABS: ALT (GPT) 49 U/L (12-78)
[2017-12-02 05:47] LABS: ALBUMIN 1.6 GM/DL (3.4-5.0); ALKALINE PHOSPHATASE 292 U/L (45-117); AST (GOT) 62 U/L (15-37); BICARBONATE 17.6 MEQ/L (21.0-32.0); BLOOD UREA NITROGEN 26 MG/DL (7-18); CALCIUM 8.2 MG/DL (8.5-10.1); CHLORIDE 104 MEQ/L (98-107); CREATININE 1.59 MG/DL (0.60-1.30); GLOMERULAR FILTRATION RATE 49 ML/MIN (>89); GLUCOSE,RANDOM 79 MG/DL (74-106); SODIUM (NA) 133 MEQ/L (136-145); TOTAL BILIRUBIN ADULT 23.7 MG/DL (0.2-1.0); TOTAL PROTEIN 6.1 GM/DL (6.4-8.2)
[2017-12-02 07:30] LABS: BANDS 4 % (0-6); LYMPHOCYTES 1 % (9-44); MONOCYTES 7 % (0-8); NEUTROPHIL # MANUAL DIFF 31.6 TH/MM3 (1.8-7.7); POLYS (SEG NEUTROPHILS) 88 % (16-70)
--- NOTE | 2017-12-02 08:36 | MB ---
cc: Cj Kaplan MD DATE OF CONSULT: 12/01/2017 REQUESTING PHYSICIAN: Dr. Acuña REASON FOR CONSULTATION: The patient with persistent leukocytosis. Signed out AMA. Further advise. HISTORY OF PRESENT ILLNESS: This is a 47-year-old white male who was admitted to the hospital recently on November 24. The patient was being treated for liver cirrhosis and possible SBP. He underwent paracentesis. At the time, his white cell count of 23,000 and it had increased up to 42.9. He also had marked elevation in bilirubin of 25.1. The patient was evaluated by myself during that admission and he was on antibiotics for possible SBP. The patient states that he got scared when he was told how bad his liver was and he signed out from the hospital against medical advice. He presented again for this admission on 11/30, after he decided that he needed to have medical attention. He notes that the area where the paracentesis was performed at the right lower abdomen has been draining slightly yellow fluid. He denies fever and he denies chills. He was evaluated in the emergency department and his white blood cell count was 42.8 and his total bilirubin was 27.0. He denied severe abdominal pain, but he does have mild pain in the abdomen. Blood cultures were taken. This consultation is requested for antibiotic recommendations. PAST MEDICAL HISTORY: 1. Liver cirrhosis newly diagnosed secondary to alcohol. 2. Alcohol abuse. 3. History of asthma. ALLERGIES: NO KNOWN DRUG ALLERGIES. MEDICATIONS: Ceftriaxone, metronidazole, oxycodone 5 milligrams as needed, question Protonix, Aldactone, Librium, lactulose, Mephyton, Trental, rifaximin, Atarax. SOCIAL HISTORY: The patient drinks alcohol in the form of beers daily. He smokes a 1/4 pack of cigarettes a day. Positive marijuana use. FAMILY HISTORY: Noncontributory. REVIEW OF SYSTEMS: Negative on 10-point review, except for mild pain in the abdomen. PHYSICAL EXAMINATION: GENERAL: This is a moderately obese male who is in no acute distress. He is awake, alert and oriented. VITAL SIGNS: Includes temperature 96.5, blood pressure 134/85, respirations 18, heart rate 100. HEENT: Head atraumatic. Extraocular movements grossly intact. Pupils reactive to light. Positive icterus. No conjunctival erythema. Oropharynx, moist mucosa. No visible lesions. NECK: Supple, without adenopathy or swelling. PULMONARY: Lungs clear, decreased breath sounds. CARDIOVASCULAR: Heart regular, S1 and S2, without murmurs, rubs or gallops. ABDOMEN: Distended, diminished bowel sounds. Mild tenderness around the umbilicus. RECTAL: Not performed. EXTREMITIES: No clubbing, cyanosis or edema. The patient has round, scabbed lesions approximately 1/2 cm diameter scattered over the upper extremities on both left and right, and few tiny scabbed lesions of the lower extremities. SKIN: The skin is slightly dry. No diffuse rash. NEUROLOGIC: No gross focal findings. PSYCHIATRIC: The patient is calm and cooperative. LABORATORY DATA: Creatinine 1.40, BUN 22. Estimated GFR 66. Total bilirubin 22.8, AST 69, ALT 46. Sodium 132. WBC 34.9, platelets 210, 83% neutrophils, 5% lymphocytes, 10% monocytes, hemoglobin 12.4. IMPRESSION: 1. Alcoholic liver cirrhosis. 2. Probable spontaneous bacterial peritonitis. The patient status post paracentesis and has leakage of fluid coming from the paracentesis site. 3. Leukocytosis likely secondary to spontaneous bacterial peritonitis. RECOMMENDATIONS: 1. Continue ceftriaxone. 2. Continue metronidazole. 3. Monitor white blood cell count. 4. Monitor blood cultures. 5. If the white blood cell count remains elevated and he continues to have drainage from the abdomen where the paracentesis was performed, obtain culture of the fluid. The patient's progress will be monitored along with you and further recommendations will be given upon followup. MD MAYELIN Burrell/THIAGO , 07:24 PM , 09:33 PM
[2017-12-02] MEDS: POTASSIUM CHLORIDE 10 MEQ CAP PO SCH ×2 (08:51→20:26)
[2017-12-02] MEDS: RIFAXIMIN 550 MG TAB PO SCH ×2 (08:51→20:26)
[2017-12-02] MEDS: chlordiazePOXIDE 25 MG CAP PO SCH ×3 (08:51→18:24)
[2017-12-02] MEDS: CHOLESTYRAMINE 4 GM PACKET PO SCH ×2 (08:51→20:27)
[2017-12-02] MEDS: PANTOPRAZOLE SOD 40 MG DELAYED RELEASE TAB PO SCH (08:51)
[2017-12-02] MEDS: SPIRONOLACTONE 25 MG TAB PO SCH ×2 (08:51→18:24)
[2017-12-02] MEDS: SODIUM CHLORIDE 0.9% FLUSH 10 ML FLUSH IV FLUSH SCH ×2 (08:52→20:31)
[2017-12-02] MEDS: LACTULOSE SYRUP 20 GM/30 ML CUP PO SCH ×3 (08:52→18:24)
[2017-12-02] MEDS ORDERED: POTASSIUM BICARBONATE 25 MEQ EFFERVESCENT TAB PO ONE (09:30)
--- NOTE | 2017-12-02 09:47 | HHI.PR ---
Subjective Remarks awake and alert abdomen distended- bigger per patient- - dressing gets soaked with fluid denies any pain Objective Vitals Vital Signs Date Time Temp Pulse Resp B/P (MAP) Pulse Ox O2 Delivery O2 Flow Rate FiO2 12/02/17 08:00 96.1 99 17 130/76 (94) 99 12/02/17 04:00 96.6 95 20 114/54 (74) 98 12/02/17 00:09 110 12/02/17 00:00 97.1 105 20 128/83 (98) 98 12/01/17 20:00 96.7 110 18 130/75 (93) 97 12/01/17 16:53 96.5 100 18 134/85 (101) 100 12/01/17 12:00 96.3 100 20 114/55 (74) 98 I/O 12/01/17 12/01/17 12/01/17 12/02/17 12/02/17 12/02/17 07:00 15:00 23:00 07:00 15:00 23:00 Intake Total 880 ml 100 ml 920 ml Output Total 1200 ml Balance -320 ml 100 ml 920 ml Intake Oral 780 ml 720 ml IV Total 100 ml 100 ml 200 ml Output Urine Total 1200 ml # Voids 5 3 # Bowel Movements 1 3 0 Result Diagram: 12/02/17 0354 12/02/17 0354 Imaging Last Impressions Chest X-Ray 11/30/17 0000 Signed Impressions: Service Date/Time: Thursday, November 30, 2017 17:13 - CONCLUSION: No acute disease. Braden Akers Jr., MD Objective Remarks awake and alert, oriented x 3 + icteresia lungs- no rales regular rhythm abdomen-distended no scrotal edema + edema A/P Assessment and Plan 37 years old male Alcoholic liver cirrhosis with ascites S/P Paracentesis- 3/2 - 4L out -start diuretics- cautiously - with monitoring of renal functions - started Aldactone 25 mg po bid -. start Lasix 20 mg daily- if creatinine stable - ff BMP, ff LFTs -continue Librium 25 mg po tid - IR consult for therapeutic and diagnostic paracentesis- r.o SBP - GI consult- for recommendations Leukocytosis- possible SBP - ff cultures from last admission 11/25 - no growth so far -continue on IV flagyl and Ceftriaxone - get a paracentesis today- therapeutic and diagnostic - ID service ff hx of hepatic encephalopathy- MS improved - continue Lactulose bid - monitor MS Pruritus-due to Liver disease - on Atarax - trial of cholestyramine- seemed to help Hypokalemia- replace and ff Acute on CKI - increase in creatinine may be due to ineffective circulating volume from ascites -introduce diuretics gradually with close monitoring of renal functions- on aldactone 25 mg po bid -start Lasix 20 mg po in am if creatinine stabilizes - close monitoring of BMP Palliative care service ff full code per his latest discussions with palliative care a few days ago scd PPI Isidro Fuentes MD Dec 02, 2017 09:47
--- NOTE | 2017-12-02 10:41 | HHI.IDPN ---
Note Infectious Disease Note Patient is having seepage of yellow fluid from the right lateral abdomen. No fever or chills. Notes mild abdominal pain. States that there was very little drainage from abdomen overnight. Patient sometimes rubs the abdomen area of drainage with his hands. WBC remained elevated. ID consult requested for elevated white blood cell count. PAST MEDICAL HISTORY: 1. Liver cirrhosis newly diagnosed secondary to alcohol. 2. Alcohol abuse. 3. History of asthma. ALLERGIES: NO KNOWN DRUG ALLERGIES. MEDICATIONS: Current Medications Medications (Trade) Dose Ordered Sig/Virgil Route PRN Reason Start Time Stop Time Status Last Admin Dose Admin Sodium Chloride (NS Flush) 2 ml UNSCH PRN IV FLUSH FLUSH AFTER USING IV ACCESS 11/30/17 17:30 Sodium Chloride (NS Flush) 2 ml BID IV FLUSH 11/30/17 21:00 12/02/17 08:52 Naloxone HCl (Narcan Inj) 0.4 mg UNSCH PRN IV PUSH SEE LABEL COMMENTS 11/30/17 17:30 Metronidazole 100 ml @ 100 mls/hr Q6H IV 12/01/17 00:00 12/02/17 05:25 Ceftriaxone Sodium 1000 mg/ Sodium Chloride 100 ml @ 200 mls/hr Q24H IV 12/01/17 17:00 12/01/17 18:34 Hydroxyzine HCl (Atarax) 25 mg Q6H PRN PO itching 11/30/17 19:30 12/02/17 08:51 Rifaximin (Xifaxan) 550 mg BID PO 11/30/17 21:00 12/02/17 08:51 Pentoxifylline (TRENtal SR) 400 mg Q8HR PO 11/30/17 22:00 12/02/17 05:25 Lactulose (Lactulose Liq) 30 ml TID PO 12/01/17 09:00 12/02/17 08:52 Potassium Chloride (KCl) 10 meq BID PO 11/30/17 21:00 12/02/17 08:51 Cholestyramine Resin (Questran 4 Gm Pkt) 4 gm Q12HR PO 12/01/17 21:00 12/02/17 08:51 Pantoprazole Sodium (Protonix) 40 mg DAILY PO 12/02/17 09:00 12/02/17 08:51 Spironolactone (Aldactone) 25 mg BID@09,18 PO 12/01/17 18:00 12/02/17 08:51 Chlordiazepoxide (Librium) 25 mg TID PO 12/01/17 18:00 12/02/17 08:51 Oxycodone HCl (Roxicodone) 5 mg Q4H PRN PO PAIN SCALE 4 TO 10 12/01/17 18:15 12/02/17 05:25 Phytonadione (Mephyton Liq) 5 mg DAILY PO 12/02/17 09:00 SOCIAL HISTORY: The patient drinks alcohol in the form of beers daily. He smokes a 1/4 pack of cigarettes a day. Positive marijuana use. OBJECTIVE: Vital Signs Date Time Temp Pulse Resp B/P (MAP) Pulse Ox O2 Delivery O2 Flow Rate FiO2 12/02/17 08:00 96.1 99 17 130/76 (94) 99 12/02/17 04:00 96.6 95 20 114/54 (74) 98 12/02/17 00:09 110 12/02/17 00:00 97.1 105 20 128/83 (98) 98 12/01/17 20:00 96.7 110 18 130/75 (93) 97 12/01/17 16:53 96.5 100 18 134/85 (101) 100 12/01/17 12:00 96.3 100 20 114/55 (74) 98 Laboratory Tests Test 11/30/17 16:25 12/01/17 03:05 12/02/17 03:54 White Blood Count 42.8 TH/MM3 34.9 TH/MM3 34.3 TH/MM3 Red Blood Count 4.20 MIL/MM3 3.46 MIL/MM3 3.54 MIL/MM3 Hemoglobin 15.1 GM/DL 12.4 GM/DL 12.8 GM/DL Hematocrit 42.7 % 35.2 % 35.9 % Mean Corpuscular Volume 101.7 FL 101.7 FL 101.6 FL Mean Corpuscular Hemoglobin 36.0 PG 35.8 PG 36.1 PG Mean Corpuscular Hemoglobin Concent 35.4 % 35.2 % 35.5 % Red Cell Distribution Width 16.9 % 16.9 % 16.5 % Platelet Count 310 TH/MM3 210 TH/MM3 166 TH/MM3 Mean Platelet Volume 7.5 FL 7.7 FL 8.0 FL Neutrophils (%) (Auto) 83.6 % 83.6 % 84.8 % Lymphocytes (%) (Auto) 5.0 % 5.3 % 5.1 % Monocytes (%) (Auto) 11.1 % 10.4 % 9.0 % Eosinophils (%) (Auto) 0.1 % 0.4 % 1.0 % Basophils (%) (Auto) 0.2 % 0.3 % 0.1 % Neutrophils # (Auto) 35.8 TH/MM3 29.2 TH/MM3 29.1 TH/MM3 Lymphocytes # (Auto) 2.1 TH/MM3 1.8 TH/MM3 1.7 TH/MM3 Monocytes # (Auto) 4.7 TH/MM3 3.6 TH/MM3 3.1 TH/MM3 Eosinophils # (Auto) 0.1 TH/MM3 0.2 TH/MM3 0.3 TH/MM3 Basophils # (Auto) 0.1 TH/MM3 0.1 TH/MM3 0.0 TH/MM3 CBC Comment AUTO DIFF AUTO DIFF AUTO DIFF Differential Total Cells Counted 100 100 100 Neutrophils % (Manual) 78 % 84 % 88 % Band Neutrophils % 8 % 3 % 4 % Lymphocytes % 7 % 1 % 1 % Monocytes % 7 % 11 % 7 % Neutrophils # (Manual) 36.8 TH/MM3 30.7 TH/MM3 31.6 TH/MM3 Differential Comment FINAL DIFF MANUAL FINAL DIFF MANUAL FINAL DIFF MANUAL Platelet Estimate NORMAL NORMAL NORMAL Platelet Morphology Comment NORMAL NORMAL NORMAL Myelocytes 1 % Laboratory Tests Test 11/30/17 16:25 11/30/17 17:58 12/01/17 03:05 12/02/17 03:54 Blood Urea Nitrogen 23 MG/DL 22 MG/DL 26 MG/DL Creatinine 1.34 MG/DL 1.40 MG/DL 1.59 MG/DL Random Glucose 81 MG/DL 121 MG/DL 79 MG/DL Total Protein 7.8 GM/DL 6.1 GM/DL 6.1 GM/DL Albumin 2.0 GM/DL 1.5 GM/DL 1.6 GM/DL Calcium Level 8.3 MG/DL 8.0 MG/DL 8.2 MG/DL Alkaline Phosphatase 379 U/L 279 U/L 292 U/L Aspartate Amino Transf (AST/SGOT) 89 U/L 69 U/L 62 U/L Alanine Aminotransferase (ALT/SGPT) 62 U/L 46 U/L 49 U/L Total Bilirubin 27.0 MG/DL 22.8 MG/DL 23.7 MG/DL Sodium Level 132 MEQ/L 133 MEQ/L 133 MEQ/L Potassium Level 3.1 MEQ/L 3.2 MEQ/L 3.2 MEQ/L Chloride Level 100 MEQ/L 103 MEQ/L 104 MEQ/L Carbon Dioxide Level 20.9 MEQ/L 17.6 MEQ/L 17.6 MEQ/L Anion Gap 11 MEQ/L 12 MEQ/L 11 MEQ/L Estimat Glomerular Filtration Rate 59 ML/MIN 56 ML/MIN 49 ML/MIN Ammonia 21 MCMOL/L Lipase 956 U/L Lactic Acid Level 2.0 mmol/L Microbiology Date/Time Source Procedure Growth Status 11/30/17 17:58 Blood Line Aerobic Blood Culture - Preliminary NO GROWTH IN 1 DAY Resulted 11/30/17 17:58 Blood Line Anaerobic Blood Culture - Preliminary NO GROWTH IN 1 DAY Resulted 11/30/17 17:45 Blood Line Aerobic Blood Culture - Preliminary NO GROWTH IN 1 DAY Resulted 11/30/17 17:45 Blood Line Anaerobic Blood Culture - Preliminary NO GROWTH IN 1 DAY Resulted PHYSICAL EXAMINATION: GENERAL: Awake and alert. No acute distress. HEENT: Head atraumatic. Extraocular movements grossly intact. Pupils reactive to light. Positive icterus. No conjunctival erythema. Oropharynx, moist mucosa. No visible lesions. NECK: Supple, without adenopathy or swelling. PULMONARY: Lungs clear, decreased breath sounds. CARDIOVASCULAR: Heart regular, S1 and S2, without murmurs, rubs or gallops. ABDOMEN: Obese. diminished bowel sounds. Mild tenderness around the umbilicus. Yellow fluid oozing from right lateral abdomen area of Prior paracentesis. EXTREMITIES: No clubbing, cyanosis or edema. The patient has round, SKIN: scabbed lesions approximately 1/2 cm diameter scattered over the upper extremities on both left and right, and few tiny scabbed lesions of the lower extremities. No diffuse rash. NEUROLOGIC: No gross focal findings. PSYCHIATRIC: The patient is calm and cooperative. IMPRESSION: 1. Alcoholic liver cirrhosis. 2. Probable spontaneous bacterial peritonitis. The patient status post paracentesis and has leakage of fluid coming from the paracentesis site. 3. Leukocytosis likely secondary to spontaneous bacterial peritonitis. White blood cell remained high. RECOMMENDATIONS: 1. Continue ceftriaxone. 2. Continue metronidazole. 3. Monitor white blood cell count. 4. Monitor blood cultures. 5. If the white blood cell count remains elevated and he continues to have drainage from the abdomen where the paracentesis was performed, obtain culture of the fluid for diagnostic purposes. Patient instructed to avoid touching the area of the abdomen where drainage is occurring for hygienic purposes. Cj Kaplan MD Dec 02, 2017 10:41
[2017-12-02] MEDS: PHYTONADIONE 5 MG/SWFI 5 ML ORAL SYR PO SCH (11:30)
[2017-12-02 12:41] LABS: INTERNATIONAL NORMALIZED RATIO 1.8 RATIO; PROTHROMBIN TIME - PATIENT 18.2 SEC (9.8-11.6)
--- NOTE | 2017-12-02 13:09 | PD.CONS ---
HPI History of Present Illness This is a 37 year old M with medical history significant for cirrhosis with acute alcoholic hepatitis. Pt has been hospitalized twice since the beginning of October regarding cirrhosis and jaundice, pt left AMA from this hospital and was only home for 19 hours before returning. Pt returned to the ER Tuesday with complaints of severe abdominal pain and worsening abdominal distention. Also having associated nausea and vomiting, denies hematemesis and coffee ground emesis. States last episode of emesis was the other night after taking medication on an empty stomach. Pt also complaining of sever pruritus, has multiple sores on his body from scratching and cigarette cuellar to help with the itching. While pt was home for 19 hours he does admit to having a bloody , however, mother is at bedside and thinks he had more to drink. Pt denies illicit drug use, however, previous medical records stated he admits to history of IV drug use. Previous liver work up --> Hepatitis panel negative, celiac panel negative, FINA negative, AMA borderline elevated, ASMA positive but low titer, Alpha 1 antitrypsin not elevated, Ceruloplasmin slightly elevated, Ferritin-708. Paracentesis was last done on November 25 with 4,400 cc of clear, yellow fluid removed, fluid culture negative. PRASAD-1.5 consistent with portal HTN as cause of ascites. Pt having seepage of yellow fluid from previous paracentesis site, drainage changed earlier this afternoon and already saturated. Pt currently with leukocytosis, being followed by ID who has him on Rocephin and Flagyl. Pt denies ever having EGD or colonoscopy in the past. (Ava Santos) PFSH Past Medical History Liver Cirrhosis Alcohol hepatitis Asthma ETOH dependence . Past Surgical History tumor taken out in [employer] wisdom teeth Paracentesis today 2017, 4.4 L of fluid removed from his abdomen . (Ava Santos) Coded Allergies: No Known Allergies (Verified , 11/24/17) Family History grandfather- dm, alive mom- neuropathy, alive dad - herniated disk in his back, alive . Social History smokes now about 4-5 cigarrettes a day drinks heavily usually , but now cutting off, had a few drinks this morning used to do cocaine, but no iv drugs (Ava Santos) Review of Systems Gastrointestinal: COMPLAINS OF: Abdominal pain, Nausea, Vomiting, Swelling of Abdomen, DENIES: Black stools, Bloody stools, Constipation, Diarrhea, Difficulty Swallowing, Odynophagia, Heartburn, Hematemesis (Ava Santos ) GI Exam Vitals I&O Vital Signs Date Time Temp Pulse Resp B/P (MAP) Pulse Ox O2 Delivery O2 Flow Rate FiO2 12/02/17 12:00 95.9 91 18 121/69 (86) 98 12/02/17 08:00 96.1 99 17 130/76 (94) 99 12/02/17 04:00 96.6 95 20 114/54 (74) 98 12/02/17 00:09 110 12/02/17 00:00 97.1 105 20 128/83 (98) 98 12/01/17 20:00 96.7 110 18 130/75 (93) 97 12/01/17 16:53 96.5 100 18 134/85 (101) 100 I/O 12/01/17 12/01/17 12/01/17 12/02/17 12/02/17 12/02/17 07:00 15:00 23:00 07:00 15:00 23:00 Intake Total 880 ml 100 ml 920 ml Output Total 1200 ml Balance -320 ml 100 ml 920 ml Intake Oral 780 ml 720 ml IV Total 100 ml 100 ml 200 ml Output Urine Total 1200 ml # Voids 5 3 # Bowel Movements 1 3 0 Imaging Last Impressions Chest X-Ray 11/30/17 0000 Signed Impressions: Service Date/Time: Thursday, November 30, 2017 17:13 - CONCLUSION: No acute disease. Braden Akers Jr., MD Laboratory Test 12/02/17 03:54 12/02/17 11:11 White Blood Count 34.3 TH/MM3 Red Blood Count 3.54 MIL/MM3 Hemoglobin 12.8 GM/DL Hematocrit 35.9 % Mean Corpuscular Volume 101.6 FL Mean Corpuscular Hemoglobin 36.1 PG Mean Corpuscular Hemoglobin Concent 35.5 % Red Cell Distribution Width 16.5 % Platelet Count 166 TH/MM3 Mean Platelet Volume 8.0 FL Neutrophils (%) (Auto) 84.8 % Lymphocytes (%) (Auto) 5.1 % Monocytes (%) (Auto) 9.0 % Eosinophils (%) (Auto) 1.0 % Basophils (%) (Auto) 0.1 % Neutrophils # (Auto) 29.1 TH/MM3 Lymphocytes # (Auto) 1.7 TH/MM3 Monocytes # (Auto) 3.1 TH/MM3 Eosinophils # (Auto) 0.3 TH/MM3 Basophils # (Auto) 0.0 TH/MM3 CBC Comment AUTO DIFF Differential Total Cells Counted 100 Neutrophils % (Manual) 88 % Band Neutrophils % 4 % Lymphocytes % 1 % Monocytes % 7 % Neutrophils # (Manual) 31.6 TH/MM3 Differential Comment FINAL DIFF MANUAL Platelet Estimate NORMAL Platelet Morphology Comment NORMAL Blood Urea Nitrogen 26 MG/DL Creatinine 1.59 MG/DL Random Glucose 79 MG/DL Total Protein 6.1 GM/DL Albumin 1.6 GM/DL Calcium Level 8.2 MG/DL Alkaline Phosphatase 292 U/L Aspartate Amino Transf (AST/SGOT) 62 U/L Alanine Aminotransferase (ALT/SGPT) 49 U/L Total Bilirubin 23.7 MG/DL Sodium Level 133 MEQ/L Potassium Level 3.2 MEQ/L Chloride Level 104 MEQ/L Carbon Dioxide Level 17.6 MEQ/L Anion Gap 11 MEQ/L Estimat Glomerular Filtration Rate 49 ML/MIN Prothrombin Time 18.2 SEC Prothromb Time International Ratio 1.8 RATIO Date/Time Source Procedure Growth Status 11/30/17 17:58 Blood Line Aerobic Blood Culture - Preliminary NO GROWTH IN 2 DAYS Resulted 11/30/17 17:58 Blood Line Anaerobic Blood Culture - Preliminary NO GROWTH IN 2 DAYS Resulted Physical Examination HEENT: Normocephalic; atraumatic; (+) icterus CHEST: Even/unlabored CARDIAC: RRR ABDOMEN: Distended, soft, mild diffuse tenderness, bowel sounds active, clear, yellow drainage to previous paracentesis site- gauze is saturated SKIN: Multiple wounds generalized over body from cigarette cuellar and excoriations from scratching. 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 (Ava Santos) Assessment and Plan Plan Assessment - Alcohol hepatitis- Current labs- AST-62 ALT-49 Alk phos-292 T bili-23.7 DF-52. Pt was recently admitted, left AMA, returned after 19 hours of being home. Reports one bloody while home, however mother at bedside thinks this is unlikely. - Cirrhosis- MELD-27. Previous liver work up as follows: Hepatitis panel negative, celiac panel negative, FINA negative, AMA borderline elevated, ASMA positive but low titer, Alpha 1 antitrypsin not elevated, Ceruloplasmin slightly elevated, Ferritin-708. Platelets WNL. Albumin 1.6 - Ascites- Paracentesis was last done on November 25 with 4,400 cc of clear, yellow fluid removed, fluid culture negative. SAAG-1.5 consistent with portal HTN as cause of ascites. Pt complaining of worsening abdominal distention. - Pancreatitis- elevated lipase-956 - Coagulopathy- INR 1.8 - Leukocytosis- WBC 34.3. ID following. Afebrile. On Rocephin and Flagyl - ELKIN- GFR-49 decreased since last admission CT abdomen and pelvis W contrast (11/24) --> Moderate amount of ascites. Hepatomegaly. 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 Plan: US abdomen Lactulose Pentoxifylline Rifaximin Protonix Spironolactone Monitor labs (CBC, CMP, lipase) Supportive care Further recommendations to follow based on clinical course Pt has been seen and examined by myself and Dr. Patel and this note is written on his behalf (Ava Santos) Physician Comments Agree with the plan as above. Known to us from recent admission. Workup so far as above. Not a candidate for liver transplantation with recent ETOH drinking. Thank you for the consult. (Arely Patel MD) Ava Santos Dec 02, 2017 13:09 Arely Patel MD Dec 02, 2017 14:06
[2017-12-02] MEDS ORDERED: LIDOCAINE HCL 1% 20 ML VIAL ONE ×2 (14:51→18:52)
[2017-12-02 15:49] LABS: TOTAL PROTEIN,PERITONEAL FLUID 0.6 GM/DL
--- NOTE | 2017-12-02 16:00 | RADRPT ---
EXAM DATE/TIME: 12/02/2017 11:37 [facility] COMPARISON: US GUIDED ABD PARACENTESIS, November 25, 2017, 10:16. INDICATIONS : Ascities. MEDICAL HISTORY : Gastroesophageal reflux disease. Hepatitis. ETOH use daily. Asthma. 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 ENCOUNTER: Subsequent ACUITY: 1 week PAIN SCORE: 3/10 LOCATION: Right lower quadrant FLUID: Total volume of 3700 cc of clear, yellow fluid was removed. Fluid was sent to lab for ordered studies. Post procedure scanning reveals no hematoma or other complication. TECHNIQUE: 1. Ultrasound guidance for abdominal paracentesis. 2. Paracentesis. The risks, benefits, and alternatives to ultrasound guided paracentesis were explained to the patient in detail including the risk of bleeding and infection. Written and verbal informed consent was obt ained. With the patient on the ultrasound table, ultrasound imaging was used to select the most appropriate approach for paracentesis. Overlying skin was prepped and draped in the usual sterile fashion and wi th a local anesthetic, a dermatotomy was made with an 11 blade scalpel. A 6 Turkmen [id number] ca theter was introduced into the peritoneal cavity and fluid was collected. The patient tolerated the procedure well and left the ultrasound suite in stable condition. CONCLUSION: Uncomplicated ultrasound guided paracentesis. Julian Brantley MD on December 02, 2017 at 15:58 Board Certified Radiologist. This report was verified electronically.
[2017-12-02 16:30] LABS: PERITONEAL LYMPHS 9 %; PERITONEAL MONOS 7 %; PERITONEAL POLYS(SEGS) 81 %; PERITONEAL RBC 92 /MM3 (0-0)
[2017-12-02 16:31] LABS: PERITONEAL HISTIOCYTES 1 %; PERITONEAL MESOTHELIAL 2 %
[2017-12-02] MEDS: cefTRIAXone INJ 1,000 MG in SODIUM CHLORIDE 0.9% INJ 100 ML IV SCH (18:25)
[2017-12-02] MEDS ORDERED: POTASSIUM CHLORIDE 20 MEQ CONTROLLED RELEASE TAB PO ONE (20:00)
[2017-12-03] VITALS (7 sets, daily range): BP systolic 112–129; BP diastolic 55–66; PULSE 89–107; RESP 16–18; TEMP 95.9–97.9; O2SAT 94–99
[2017-12-03] MEDS: metroNIDAZOLE 500 MG INJ 100 ML IV SCH ×5 (00:32→21:16)
[2017-12-03] MEDS: hydrOXYzine HCL 25 MG TAB PO PRN ×3 (00:32→13:51)
[2017-12-03] MEDS: PENTOXIFYLLINE 400 MG CONTROLLED RELEASE TAB PO SCH ×3 (04:33→21:15)
[2017-12-03 05:11] LABS: CALCIUM 7.6 MG/DL (8.5-10.1)
[2017-12-03 05:12] LABS: CREATININE 1.91 MG/DL (0.60-1.30)
[2017-12-03] MEDS: POTASSIUM CHLORIDE 10 MEQ CAP PO SCH ×2 (08:59→21:15)
[2017-12-03] MEDS: PANTOPRAZOLE SOD 40 MG DELAYED RELEASE TAB PO SCH (08:59)
[2017-12-03] MEDS: RIFAXIMIN 550 MG TAB PO SCH ×2 (08:59→21:14)
[2017-12-03] MEDS: chlordiazePOXIDE 25 MG CAP PO SCH ×3 (08:59→18:49)
[2017-12-03] MEDS: CHOLESTYRAMINE 4 GM PACKET PO SCH ×2 (08:59→21:15)
[2017-12-03] MEDS: SPIRONOLACTONE 25 MG TAB PO SCH (08:59)
[2017-12-03] MEDS: LACTULOSE SYRUP 20 GM/30 ML CUP PO SCH ×3 (08:59→18:49)
[2017-12-03] MEDS: PHYTONADIONE 5 MG/SWFI 5 ML ORAL SYR PO SCH (08:59)
[2017-12-03] MEDS: SODIUM CHLORIDE 0.9% FLUSH 10 ML FLUSH IV FLUSH SCH ×2 (09:00→21:00)
--- NOTE | 2017-12-03 09:45 | HHI.PR ---
Subjective Remarks up in bed supportive family at bedside no nausea or vomiting voiding well, + BM itching improved slightly with Atarax and Cholestyramine Objective Vitals Vital Signs Date Time Temp Pulse Resp B/P (MAP) Pulse Ox O2 Delivery O2 Flow Rate FiO2 12/03/17 08:00 97.9 94 16 114/55 (74) 98 12/03/17 04:00 97.1 89 18 121/64 (83) 97 12/03/17 00:18 107 12/03/17 00:00 97.1 90 17 116/63 (80) 95 12/02/17 20:00 97.8 69 17 118/71 (87) 97 12/02/17 16:00 96.9 106 19 104/76 (85) 100 12/02/17 12:00 95.9 91 18 121/69 (86) 98 I/O 12/02/17 12/02/17 12/02/17 12/03/17 12/03/17 12/03/17 07:00 15:00 23:00 07:00 15:00 23:00 Intake Total 920 ml 695 ml 580 ml Balance 920 ml 695 ml 580 ml Intake Oral 720 ml 695 ml 580 ml IV Total 200 ml # Voids 3 4 2 # Bowel Movements 0 1 0 Result Diagram: 12/02/17 0354 12/03/17 0325 Imaging Last Impressions Cyst Biopsy Asp-Paracentesis US 12/02/17 0000 Signed Impressions: Service Date/Time: Saturday, December 02, 2017 11:37 - CONCLUSION: Uncomplicated ultrasound guided paracentesis. Julian Brantley MD Chest X-Ray 11/30/17 0000 Signed Impressions: Service Date/Time: Thursday, November 30, 2017 17:13 - CONCLUSION: No acute disease. Braden Akers Jr., MD Objective Remarks awake and alert, oriented x 3 + icteresia lungs- no rales, no wheezes regular rhythm abdomen- softer no scrotal edema tr edema neuro exam- non focal Procedures 12/02- paracentesis 3.7 L out A/P Assessment and Plan 37 years old male Alcoholic liver cirrhosis with ascites S/P Paracentesis- 32 - 4L , again 12/02- 3.7 L -hold diuretics- with worsening renal functions - started Aldactone 25 mg po bid - discontinued -. start Lasix 20 mg daily- will not start with increase creatinine - ff BMP, ff LFTs -continue Librium 25 mg po tid- decrease to bid - GI ff Leukocytosis- possible SBP - ff cultures from last admission 11/25 - no growth so far -continue on IV flagyl and Ceftriaxone - ID service ff - ff repeat cultures - recheck CBC in am hx of hepatic encephalopathy- MS improved - continue Lactulose bid - Pruritus-due to Liver disease - on Atarax - trial of cholestyramine- seemed to help Hypokalemia- continue to replace and ff Acute on CKI - increase in creatinine may be due to ineffective circulating volume from ascites - worsening renal functions- Hold aldactone. will not start Lasix for now - close monitoring of BMP - Nephrology consult for recommendation d/w patient and M Om about worsening renal functions- and holding off diuretics for now- possbile hepatorenal syndrome full code per his latest discussions with palliative care a few days ago scd PPI Isidro Fuentes MD Dec 03, 2017 09:45
--- NOTE | 2017-12-03 10:14 | HHI.GIFU ---
Subjective Remarks Pt is sitting on the edge of the bed, accompanied by mom, cont. to have abd pain , intermittent N/V, no bleeding or hematochezia. Mom had many questions and concerns, states she will stay with him and make sure he is taking care of himself and she will make sure he doesn't drink any more. (Bella Jones REINIER) Objective Vitals I&O Vital Signs Date Time Temp Pulse Resp B/P (MAP) Pulse Ox O2 Delivery O2 Flow Rate FiO2 12/03/17 08:00 97.9 94 16 114/55 (74) 98 12/03/17 04:00 97.1 89 18 121/64 (83) 97 12/03/17 00:18 107 12/03/17 00:00 97.1 90 17 116/63 (80) 95 12/02/17 20:00 97.8 69 17 118/71 (87) 97 12/02/17 16:00 96.9 106 19 104/76 (85) 100 12/02/17 12:00 95.9 91 18 121/69 (86) 98 I/O 12/02/17 12/02/17 12/02/17 12/03/17 12/03/17 12/03/17 07:00 15:00 23:00 07:00 15:00 23:00 Intake Total 920 ml 695 ml 580 ml Balance 920 ml 695 ml 580 ml Intake Oral 720 ml 695 ml 580 ml IV Total 200 ml # Voids 3 4 2 # Bowel Movements 0 1 0 Laboratory Laboratory Tests Test 12/02/17 11:11 12/02/17 11:40 12/03/17 03:25 Prothrombin Time 18.2 Prothromb Time International Ratio 1.8 Peritoneal Fluid WBC 399 Peritoneal Fluid RBC 92 Peritoneal Fluid Neutrophils 81 Peritoneal Fluid Lymphocytes 9 Peritoneal Fluid Monocytes 7 Peritoneal Fluid Histiocytes 1 Peritoneal Fluid Mesothelial Cells 2 Peritoneal Fluid Total Protein 0.6 Peritoneal Fluid Albumin 0.2 Peritoneal Fluid LDH 52 Peritoneal Fluid Glucose 105 Blood Urea Nitrogen 30 Creatinine 1.91 Random Glucose 71 Calcium Level 7.6 Sodium Level 132 Potassium Level 3.3 Chloride Level 102 Carbon Dioxide Level 17.0 Anion Gap 13 Estimat Glomerular Filtration Rate 39 Date/Time Source Procedure Growth Status 11/30/17 17:58 Blood Line Aerobic Blood Culture - Preliminary NO GROWTH IN 2 DAYS Resulted 11/30/17 17:58 Blood Line Anaerobic Blood Culture - Preliminary NO GROWTH IN 2 DAYS Resulted 12/02/17 11:40 Fluid Peritoneal Fluid Gram Stain - Final Resulted 12/02/17 11:40 Fluid Peritoneal Fluid Body Fluid Culture Pending Resulted Imaging Last Impressions Cyst Biopsy Asp-Paracentesis US 12/02/17 0000 Signed Impressions: Service Date/Time: Saturday, December 02, 2017 11:37 - CONCLUSION: Uncomplicated ultrasound guided paracentesis. Julian Brantley MD Chest X-Ray 11/30/17 0000 Signed Impressions: Service Date/Time: Thursday, November 30, 2017 17:13 - CONCLUSION: No acute disease. Braden Akers Jr., MD Physical Exam HEENT: Pupils round and reactive to light; normocephalic; atraumatic; + jaundice. CHEST: Chest is clear to auscultation and percussion. CARDIAC: Regular rate and rhythm with no murmur gallop or rubs. ABDOMEN: Distended, soft, mild diffuse tenderness, bowel sounds active, clear , gauze at the site of paracentesis EXTREMITIES: No clubbing, cyanosis, or edema. SKIN: Multiple wounds generalized over body from cigarette cuellar and excoriations from scratching. (+) jaundice FORMULATION SCIENTIST: No focal deficits; alert and oriented times three. (Bella Jones) Assessment and Plan Plan Assessment - Alcohol hepatitis- Current labs- AST-62 ALT-49 Alk phos-292 T bili-23.7 DF-52. Pt was recently admitted, left AMA, returned after 19 hours of being home. Reports one bloody while home, however mother at bedside thinks this is unlikely. - Cirrhosis- MELD-27. Previous liver work up as follows: Hepatitis panel negative, celiac panel negative, FINA negative, AMA borderline elevated, ASMA positive but low titer, Alpha 1 antitrypsin not elevated, Ceruloplasmin slightly elevated, Ferritin-708. Platelets WNL. Albumin 1.6 - Ascites- Paracentesis was last done on November 25 with 4,400 cc of clear, yellow fluid removed, fluid culture negative. SAAG-1.5 consistent with portal HTN as cause of ascites. Pt complaining of worsening abdominal distention. - Pancreatitis- elevated lipase-956 - Coagulopathy- INR 1.8 - Leukocytosis- WBC 34.3. ID following. Afebrile. On Rocephin and Flagyl - ELKIN- GFR-49 decreased since last admission CT abdomen and pelvis W contrast (11/24) --> Moderate amount of ascites. Hepatomegaly. 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 12/03/17 LFTs, wbc remain high, s/p paracentesis on 12/02 with 3700 ml output labs pending Diuretics on hold due to worsening kidney function Plan: - Low salt diet - Cont. Lactulose - Cont. Pentoxifylline - Cont. Rifaximin - Cont Protonix - cont. Ceftriaxone and Flagyl - Will hold Spironolactone due to worsening kidney function - (CBC, CMP, lipase, ammonia) in am - Had a lengthy discussion with mom and pt the importance of alcohol cessation - Supportive care Further recommendations to follow based on clinical course Pt has been seen and examined by myself and Dr. Patel and this note is written on his behalf (Bella Jones) Physician Comments Agree with the plan as above. Will follow up with you. (Arely Patel MD) Bella Jones Dec 03, 2017 10:14 Arely Patel MD Dec 03, 2017 12:12
[2017-12-03] MEDS ORDERED: POTASSIUM CHLORIDE 10 MEQ CONTROLLED RELEASE TAB PO ONE (10:30)
[2017-12-03 11:37] LABS: AMORPHOUS SEDIMENT, URINE FEW; BACTERIA, URINE OCC /hpf; BILIRUBIN, URINE LARGE (NEG); BLOOD, URINE NEG (NEG); GLUCOSE,URINE NEG (NEG); KETONE, URINE NEG (NEG); MUCUS URINE FEW /lpf (OCC); NITRITE,URINE NEG (NEG); URINE LEUKOCYTE ESTERASE TRACE (NEG)
[2017-12-03 11:40] LABS: URINE COLOR AMBER (YELLW/STRAW)
--- NOTE | 2017-12-03 13:31 | PD.CONS ---
[facility] Service Nephrology Consult Requested By Dr. Fuentes Reason for Consult Declining renal functions Primary Care Physician Unknown History of Present Illness The patient is a 37 yo [place] male who presented to this facility with complaints of abdominal pain, malaise, and jaundice. He has had 3 admissions to this facility in the past month with the last between 11/24 and 11/29 where he signed out AMA. Was recently diagnosed with liver cirrhosis, but unfortunately continued to drink at home. Mother and aunt present in the room---mother lives in [place] and says that he has "never been sick". He apparently has been drinking heavily since he was a teenager. Otherwise, denies any PMHx. He is a poor historian as he is lethargic. We were consulted as his renal functions have started to deteriorate. His SCr at time of consult is 1.91 rising from 1.59 12/02 and admitting SCr of 1.34. He was 1.19 at his sign out on 11/29, 1.02 on 11/24, 0.4-0.31 Oct 2017. (Brittney Strickland) Review of Systems Constitutional: COMPLAINS OF: Fatigue Gastrointestinal: COMPLAINS OF: Abdominal pain, Nausea, Vomiting (x1 last night ) Integumentary: COMPLAINS OF: Pruritus (Brittney Strickland) Past Family Social History Allergies: Coded Allergies: No Known Allergies (Verified , 11/24/17) Past Medical History Alcohol abuse Cirrhosis Past Surgical History Paracenteses Reported Medications Potassium Chloride ER (Potassium Chloride) 10 Meq Cap 10 Meq PO BID Active Ordered Medications Current Medications Medications (Trade) Dose Ordered Sig/[place]gil Route Start Time Stop Time Status Last Admin (NS Flush) 2 ml UNSCH PRN IV FLUSH 11/30/17 17:30 (NS Flush) 2 ml BID IV FLUSH 11/30/17 21:00 12/03/17 09:00 (Narcan Inj) 0.4 mg UNSCH PRN IV PUSH 11/30/17 17:30 Metronidazole 100 ml @ 100 mls/hr Q6H IV 12/01/17 00:00 12/03/17 06:41 Ceftriaxone Sodium 1000 mg/ Sodium Chloride 100 ml @ 200 mls/hr Q24H IV 12/01/17 17:00 12/02/17 18:25 (Atarax) 25 mg Q6H PRN PO 11/30/17 19:30 12/03/17 06:41 (Xifaxan) 550 mg BID PO 11/30/17 21:00 12/03/17 08:59 (TRENtal SR) 400 mg Q8HR PO 11/30/17 22:00 12/03/17 04:33 (Lactulose Liq) 30 ml TID PO 12/01/17 09:00 12/03/17 08:59 (Questran 4 Gm Pkt) 4 gm Q12HR PO 12/01/17 21:00 12/03/17 08:59 (Protonix) 40 mg DAILY PO 12/02/17 09:00 12/03/17 08:59 (Librium) 25 mg TID PO 12/01/17 18:00 12/03/17 08:59 (Roxicodone) 5 mg Q4H PRN PO 12/01/17 18:15 12/03/17 08:59 (Mephyton Liq) 5 mg DAILY PO 12/02/17 09:00 12/03/17 08:59 (KCl) 20 meq BID PO 12/03/17 21:00 Family History [place] Social History Works at [employer] Daily beer drinker and notes otherwise say at least 500mL of liquor daily. Marijuana use with reported past cocaine use (Brittney Strickland) Physical Exam Vital Signs Vital Signs Date Time Temp Pulse Resp B/P (MAP) Pulse Ox O2 Delivery O2 Flow Rate FiO2 12/03/17 12:00 97.4 91 16 112/58 (76) 98 12/03/17 08:00 97.9 94 16 114/55 (74) 98 12/03/17 04:00 97.1 89 18 121/64 (83) 97 12/03/17 00:18 107 12/03/17 00:00 97.1 90 17 116/63 (80) 95 12/02/17 20:00 97.8 69 17 118/71 (87) 97 12/02/17 16:00 96.9 106 19 104/76 (85) 100 Physical Exam GENERAL: Laying in bed. Somewhat conversive, but very drowsy. SKIN: Warm and dry. Jaundiced HEAD: Atraumatic. Normocephalic. EYES: Pupils equal and round. Scleral icteric ENT: No nasal bleeding or discharge. Mucous membranes pink and moist. NECK: Trachea midline. No JVD. CARDIOVASCULAR: Regular rate and rhythm. RESPIRATORY: No accessory muscle use. Clear to auscultation. Breath sounds equal bilaterally. GASTROINTESTINAL: Abdomen soft, but distended. Tender to palpation. MUSCULOSKELETAL: Extremities without clubbing, cyanosis, Trace-1+ pitting edema BLE NEUROLOGICAL: Awake but dorwsy PSYCHIATRIC: Appropriate mood and affect; Insight uncertain Laboratory Laboratory Tests Test 12/03/17 03:25 12/03/17 10:10 Blood Urea Nitrogen 30 Creatinine 1.91 Random Glucose 71 Calcium Level 7.6 Sodium Level 132 Potassium Level 3.3 Chloride Level 102 Carbon Dioxide Level 17.0 Anion Gap 13 Estimat Glomerular Filtration Rate 39 Urine Color QUIN Urine Turbidity HAZY Urine pH 6.0 Urine Specific [place] 1.012 Urine Protein NEG Urine Glucose (UA) NEG Urine Ketones NEG Urine Occult Blood NEG Urine Nitrite NEG Urine Bilirubin LARGE Urine Urobilinogen LESS THAN 2.0 Urine Leukocyte Esterase TRACE Urine RBC LESS THAN 1 Urine WBC 2 Urine Amorphous Sediment FEW Urine Bacteria OCC Urine Mucus FEW Microscopic Urinalysis Comment CULT NOT INDICATED Date/Time Source Procedure Growth Status 11/30/17 17:58 Blood Line Aerobic Blood Culture - Preliminary NO GROWTH IN 3 DAYS Resulted 11/30/17 17:58 Blood Line Anaerobic Blood Culture - Preliminary NO GROWTH IN 3 DAYS Resulted 12/02/17 11:40 Fluid Peritoneal Fluid Gram Stain - Final Resulted 12/02/17 11:40 Fluid Peritoneal Fluid Body Fluid Culture Pending Resulted (Brittney Strickland) Result Diagram: 12/02/17 0354 12/03/17 0325 Imaging Last Impressions Cyst Biopsy Asp-Paracentesis US 12/02/17 0000 Signed Impressions: Service Date/Time: Saturday, December 02, 2017 11:37 - CONCLUSION: Uncomplicated ultrasound guided paracentesis. Julian Brantley MD Chest X-Ray 11/30/17 0000 Signed Impressions: Service Date/Time: Thursday, November 30, 2017 17:13 - CONCLUSION: No acute disease. Braden Akers Jr., MD (Brittney Strickland) Assessment and Plan Problem List: (1) Acute renal insufficiency ICD Codes: N28.9 - Disorder of kidney and ureter, unspecified Plan: Acute renal decline may be partly due to intravascular volume depletion and potentially an ATN, however, his situation is also concerning for hepatorenal syndrome. Spironolactone has been held. Will start with hydration with albumin with monitoring of renal functions in the AM. If no improvement in renal functions overnight, his case would be highly suspicious for hepatorenal syndrome and in that case would be started on Midodrine and Sandostatin. Check urine sodium Previously negative hepatitis panel Check renal US to rule out obstructive process The mainstay of his treatment and overall long-term prognostic indicator is cessation from alcohol. He has voiced to his mother that he "will never drink again", but this remains to be seen. He is encephalopathic today, so insight was not able to be assessed. (2) Cirrhosis with alcoholism ICD Codes: K70.30 - Alcoholic cirrhosis of liver without ascites Status: Acute Plan: Not a transplant candidate due to ongoing EtOH abuse (3) Hypokalemia ICD Codes: E87.6 - Hypokalemia Plan: Repletion ordered (4) Acidosis ICD Codes: E87.2 - Acidosis Plan: Likely related to worsening renal functions. Given his hypokalemia, will not start on bicarb at the present. (5) Ascites ICD Codes: R18.8 - Other ascites (6) Hypoalbuminemia ICD Codes: E88.09 - Other disorders of plasma-protein metabolism, not elsewhere classified Plan: Related to liver disease (7) Hyperammonemia ICD Codes: E72.20 - Disorder of urea cycle metabolism, unspecified Status: Acute (8) Leukocytosis ICD Codes: D72.829 - Elevated white blood cell count, unspecified Plan: Peritoneal fluid from 12/02 culture pending. Noted increased in peritoneal WBC count. Management as per ID (Brittney Strickland) Assessment and Plan Patient appears to be encephalopathic. IV hydration with IV albumin as indicated above and hope that the patient's renal insufficiency is primarily related to intravascular volume depletion. However if no significant response hepatorenal syndrome would be to primary consideration which would be suggestive of a very poor prognosis. Discussed the pathogenesis of hepatorenal syndrome with patient and family by bedside. The exam, history, and the medical decision-making described in the above note were completed with the assistance of the [place]. I reviewed and agree with the findings presented. I attest that I had a [id number] encounter with the patient on the same day, and personally performed and documented my assessment and findings in the medical record. (Daljit Coronado MD) Problem Qualifiers (1) Cirrhosis with alcoholism: Qualified Codes: K70.31 - Alcoholic cirrhosis of liver with ascites Brittney Strickland Dec 03, 2017 13:31 Daljit Coronado MD Dec 04, 2017 13:03
[2017-12-03] MEDS: SODIUM CHLORIDE 0.9% FLUSH 10 ML FLUSH IV FLUSH PRN (13:52)
[2017-12-03] MEDS: ALBUMIN 25% INJ 100 ML IV SCH ×2 (15:48→21:15)
[2017-12-03] MEDS: SODIUM CHLOR 0.9% 1000 ML INJ 1,000 ML IV SCH ×2 (15:48→21:15)
--- NOTE | 2017-12-03 16:35 | RADRPT ---
EXAM DATE/TIME: 12/03/2017 15:27 [facility] COMPARISON: No previous studies available for comparison. INDICATIONS : Increased BUN/Creatnine. MEDICAL HISTORY : Gastroesophageal reflux disease. Hepatitis. ETOH use daily. Asthma. 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 ENCOUNTER: Initial ACUITY: 1 day PAIN SCORE: 0/10 LOCATION: Bilateral flank MEASUREMENTS: RIGHT KIDNEY: 13.7 x 6.7 x 6.7 cm LEFT KIDNEY: 16.4 x 7.3 x 8.8 cm FINDINGS: RIGHT KIDNEY: Renal cortex is normal in thickness and echotexture. No hydronephrosis, stone, or mass. LEFT KIDNEY: Renal cortex is normal in thickness and echotexture. No hydronephrosis, stone, or mass. BLADDER: Within normal limits given the degree of distension. CONCLUSION: Kidneys are somewhat prominent in size but otherwise within normal limits. No focal mass or hydroneph rosis identified. Felipe Luo MD on December 03, 2017 at 16:33 Board Certified Radiologist. This report was verified electronically.
[2017-12-03 17:44] LABS: COMPLEMENT C3 110 MG/DL (90-180); COMPLEMENT C4 20 MG/DL (10-40)
[2017-12-03 17:45] LABS: PHOSPHORUS 3.3 MG/DL (2.5-4.9)
[2017-12-03] MEDS: cefTRIAXone INJ 1,000 MG in SODIUM CHLORIDE 0.9% INJ 100 ML IV SCH ×2 (17:59→18:48)
[2017-12-04] VITALS (7 sets, daily range): BP systolic 100–133; BP diastolic 54–70; PULSE 90–102; RESP 16–18; TEMP 95.4–97.3; O2SAT 98–99
[2017-12-04] MEDS: ALBUMIN 25% INJ 100 ML IV SCH ×4 (04:48→22:48)
[2017-12-04] MEDS: metroNIDAZOLE 500 MG INJ 100 ML IV SCH ×5 (04:48→23:01)
[2017-12-04] MEDS: PENTOXIFYLLINE 400 MG CONTROLLED RELEASE TAB PO SCH ×3 (04:50→21:41)
[2017-12-04] MEDS: SODIUM CHLOR 0.9% 1000 ML INJ 1,000 ML IV SCH (07:15)
[2017-12-04 07:46] LABS: INTERNATIONAL NORMALIZED RATIO 1.8 RATIO; PROTHROMBIN TIME - PATIENT 17.8 SEC (9.8-11.6)
[2017-12-04 07:48] LABS: AUTOMATED NEUTROPHIL # 31.6 TH/MM3 (1.8-7.7); BASOPHIL # 0.3 TH/MM3 (0-0.2); BASOPHIL % 0.8 % (0.0-2.0); EOSINOPHIL # 0.4 TH/MM3 (0-0.4); EOSINOPHIL % 1.1 % (0.0-4.0); HEMATOCRIT 37.1 % (39.0-51.0); LYMPH % 4.1 % (9.0-44.0); LYMPHOCYTE # 1.5 TH/MM3 (1.0-4.8); MEAN CELL VOLUME 102.2 FL (80.0-100.0); MEAN CORPUSCULAR HEMOGLOBIN 35.9 PG (27.0-34.0); MEAN CORPUSCULAR HGB CONC 35.1 % (32.0-36.0); MEAN PLATELET VOLUME 7.9 FL (7.0-11.0); MONO % 9.5 % (0.0-8.0); MONOCYTE # 3.5 TH/MM3 (0-0.9); NEUT % 84.5 % (16.0-70.0); PLATELET COUNT 151 TH/MM3 (150-450); RED BLOOD COUNT 3.63 MIL/MM3 (4.50-5.90); RED CELL DISTRIBUTION WIDTH 16.1 % (11.6-17.2); WHITE BLOOD COUNT 37.4 TH/MM3 (4.0-11.0)
[2017-12-04 08:31] LABS: BANDS 4 % (0-6); LYMPHOCYTES 3 % (9-44); METAMYELOCYTES 1 % (0-1); MONOCYTES 13 % (0-8); MYELOCYTES 1 % (0-0); NEUTROPHIL # MANUAL DIFF 30.7 TH/MM3 (1.8-7.7); POLYS (SEG NEUTROPHILS) 75 % (16-70); PROMYELOCYTES 1 % (0-0)
[2017-12-04] MEDS: RIFAXIMIN 550 MG TAB PO SCH ×2 (08:53→21:41)
[2017-12-04] MEDS: PANTOPRAZOLE SOD 40 MG DELAYED RELEASE TAB PO SCH (08:54)
[2017-12-04] MEDS: chlordiazePOXIDE 25 MG CAP PO SCH ×2 (08:54→21:41)
[2017-12-04] MEDS: CHOLESTYRAMINE 4 GM PACKET PO SCH ×2 (08:54→21:40)
[2017-12-04] MEDS: PHYTONADIONE 5 MG/SWFI 5 ML ORAL SYR PO SCH (08:54)
[2017-12-04] MEDS: SODIUM CHLORIDE 0.9% FLUSH 10 ML FLUSH IV FLUSH SCH ×2 (08:55→21:00)
[2017-12-04] MEDS: LACTULOSE SYRUP 20 GM/30 ML CUP PO SCH ×3 (08:55→18:00)
[2017-12-04] MEDS: POTASSIUM CHLORIDE 10 MEQ CAP PO SCH ×2 (08:55→21:41)
[2017-12-04 09:26] LABS: ALBUMIN 1.5 GM/DL (3.4-5.0); ALKALINE PHOSPHATASE 328 U/L (45-117); ALT (GPT) 48 U/L (12-78); AST (GOT) 63 U/L (15-37); BICARBONATE 13.9 MEQ/L (21.0-32.0); BLOOD UREA NITROGEN 35 MG/DL (7-18); CALCIUM 7.5 MG/DL (8.5-10.1); CHLORIDE 104 MEQ/L (98-107); GLOMERULAR FILTRATION RATE 37 ML/MIN (>89); GLUCOSE,RANDOM 107 MG/DL (74-106); SODIUM (NA) 132 MEQ/L (136-145)
[2017-12-04 09:30] LABS: TOTAL BILIRUBIN ADULT 23.8 MG/DL (0.2-1.0)
[2017-12-04] MEDS: hydrOXYzine HCL 25 MG TAB PO PRN (11:03)
--- NOTE | 2017-12-04 12:23 | HHI.PR ---
Subjective Remarks no complains, up in chair just got pain meds seen with mom and family at bedside no nausea or vomiting Objective Vitals Vital Signs Date Time Temp Pulse Resp B/P (MAP) Pulse Ox O2 Delivery O2 Flow Rate FiO2 12/04/17 08:00 96.3 100 16 100/54 (69) 98 12/04/17 04:00 96.5 99 16 127/69 (88) 99 12/04/17 00:30 96.5 94 16 126/66 (86) 99 12/03/17 20:00 95.9 94 16 129/66 (87) 99 12/03/17 20:00 93 12/03/17 16:00 97.8 102 16 114/65 (81) 94 I/O 12/03/17 12/03/17 12/03/17 12/04/17 12/04/17 12/04/17 07:00 15:00 23:00 07:00 15:00 23:00 Intake Total 580 ml 100 ml 500 ml 360 ml 0 ml Balance 580 ml 100 ml 500 ml 360 ml 0 ml Intake Oral 580 ml 500 ml 360 ml IV Total 100 ml 0 ml # Voids 2 5 3 # Bowel Movements 0 0 Result Diagram: 12/04/17 0656 12/04/17 0749 Imaging Last Impressions Renal Ultrasound 12/03/17 0000 Signed Impressions: Service Date/Time: Sunday, December 03, 2017 15:27 - CONCLUSION: Kidneys are somewhat prominent in size but otherwise within normal limits. No focal mass or hydronephrosis identified. Felipe Luo MD Cyst Biopsy Asp-Paracentesis US 12/02/17 0000 Signed Impressions: Service Date/Time: Saturday, December 02, 2017 11:37 - CONCLUSION: Uncomplicated ultrasound guided paracentesis. Julian Brantley MD Chest X-Ray 11/30/17 0000 Signed Impressions: Service Date/Time: Thursday, November 30, 2017 17:13 - CONCLUSION: No acute disease. Braden Akers Jr., MD Objective Remarks awake and alert, oriented x 3 + icteresia lungs- no rales, no wheezes regular rhythm abdomen- softer no scrotal edema tr edema neuro exam- non focal Procedures 12/02- paracentesis 3.7 L out A/P Assessment and Plan 37 years old male Alcoholic liver cirrhosis with ascites S/P Paracentesis- 11/25 - 4L , again 12/02- 3.7 L -hold diuretics- with worsening renal functions- - ff BMP, ff LFTs -continue Librium 25 - decrease to bid - GI ff - monitor may need repeat paracentesis again in 1 -2 days Acute on CKI- worsening renal functions- possible hepatorenal syndrome - increase in creatinine may be due to ineffective circulating volume from ascites - worsening renal functions- Hold aldactone. will not start Lasix for now - close monitoring of BMP- creatinine stabilizing - Nephrology ff - continue IVF HC03 - + IV albumin- per Dr. Coronado - Mom would want to try everything- including HD "if it would help" HYpokalemia- K - up to 3.3 - on 20 meq po bid. give extra dose now - recheck in am Leukocytosis- possible SBP - ff cultures from last admission 11/25 - no growth so far -continue on IV flagyl and Ceftriaxone - ID service ff - ff repeat cultures - recheck CBC in am hx of hepatic encephalopathy- MS improved - continue Lactulose bid - Pruritus-due to Liver disease - on Atarax - trial of cholestyramine- seemed to help d/w MOM full code per his latest discussions with palliative care a few days ago scd PPI Isidro Fuentes MD Dec 04, 2017 12:23
[2017-12-04] MEDS ORDERED: POTASSIUM CHLOR 10 MEQ PREMIX 100 ML IV ONE (13:15)
--- NOTE | 2017-12-04 14:35 | HHI.NPPN ---
Subjective History of Present Illness The patient is a 37 yo [place] male who presented to this facility with complaints of abdominal pain, malaise, and jaundice. He has had 3 admissions to this facility in the past month with the last between 11/24 and 11/29 where he signed out AMA. Was recently diagnosed with liver cirrhosis, but unfortunately continued to drink at home. Mother and aunt present in the room---mother lives in [place] and says that he has "never been sick". He apparently has been drinking heavily since he was a teenager. Otherwise, denies any PMHx. He is a poor historian as he is lethargic. We were consulted as his renal functions have started to deteriorate. His SCr at time of consult is 1.91 rising from 1.59 12/02 and admitting SCr of 1.34. He was 1.19 at his sign out on 11/29, 1.02 on 11/24, 0.4-0.31 Oct 2017. Interval History Patient with no new complaints. Family by bedside including mother. Review of Systems General Constitutional: Fatigue Objective Data Data 12/04/17 12/05/17 19:00 07:00 Intake Total 0 ml Balance 0 ml IV Total 0 ml Vital Signs Date Time Temp Pulse Resp B/P (MAP) Pulse Ox O2 Delivery O2 Flow Rate FiO2 12/04/17 12:00 95.4 102 16 115/56 (75) 98 12/04/17 08:00 96.3 100 16 100/54 (69) 98 12/04/17 04:00 96.5 99 16 127/69 (88) 99 12/04/17 00:30 96.5 94 16 126/66 (86) 99 12/03/17 20:00 95.9 94 16 129/66 (87) 99 12/03/17 20:00 93 12/03/17 16:00 97.8 102 16 114/65 (81) 94 -: 12/04/17 0656 12/04/17 0749 Physical Exam General Appearance: No Acute Distress, Comfortable Eyes Eye Exam: Jaundice Neck Neck Exam: Trachea Midline Pulmonary Resp Exam: Clear Bilaterally, Breath Sounds Equal Cardiology CV Exam: Regular, Normal Sinus Rhythm Gastrointestinal/Abdomen GI Exam: Soft, Non-Tender, Distended Neurologic Neuro Exam: Awake, Speech Clear Assessment/Plan Problem List: (1) Hepatorenal syndrome ICD Codes: K76.7 - Hepatorenal syndrome Plan: No significant improvement in renal function with IV albumin and IV fluids and his urine sodium level is less than 10. At this point in time I do believe that the patient has developed significant hepatorenal syndrome most likely type I. Provided educational material to the patient and his mother regarding pathogenesis of same and the seriousness of the diagnosis. Patient was counseled regarding the importance of compliance with medical care and consequences of noncompliance. I will continue IV albumin. Initiate therapy with somatostatin and midodrine as ordered. Hopefully the patient's renal function will improve however if his azotemia continues to worsen at some point renal replacement therapy may have to be considered. I discussed with the patient and his mother that generally dialysis is indicated in the setting of hepatorenal syndrome and if the patient is a liver transplant candidate which unfortunately does not appear to be the case currently. If they do opt for dialysis with no improvement in his renal function they were advised that his prognosis would most likely be very poor on dialysis as the underlying issue here is hepatic dysfunction. (2) Acute renal insufficiency ICD Codes: N28.9 - Disorder of kidney and ureter, unspecified Plan: Secondary to the above. (3) Cirrhosis with alcoholism ICD Codes: K70.30 - Alcoholic cirrhosis of liver without ascites Status: Acute Plan: Not a transplant candidate due to ongoing EtOH abuse (4) Hypokalemia ICD Codes: E87.6 - Hypokalemia Plan: Repletion ordered (5) Acidosis ICD Codes: E87.2 - Acidosis Plan: Worsening. I will initiate sodium bicarbonate replacement. (6) Ascites ICD Codes: R18.8 - Other ascites (7) Hypoalbuminemia ICD Codes: E88.09 - Other disorders of plasma-protein metabolism, not elsewhere classified Plan: Related to liver disease (8) Leukocytosis ICD Codes: D72.829 - Elevated white blood cell count, unspecified Plan: Peritoneal fluid from 12/02 culture pending. Noted increased in peritoneal WBC count. Management as per ID Problem Qualifiers (1) Cirrhosis with alcoholism: Qualified Codes: K70.31 - Alcoholic cirrhosis of liver with ascites Daljit Coronado MD Dec 04, 2017 14:35
[2017-12-04] MEDS ORDERED: POTASSIUM CHLORIDE 10 MEQ CAP PO ONE (14:45)
[2017-12-04] MEDS: OCTREOTIDE INJ 100 MCG/ML VIAL SQ SCH ×2 (15:00→21:42)
[2017-12-04] MEDS: SODIUM BICARBONATE 8.4% INJ 75 MEQ in SODIUM CHLOR 0.45% 1000 ML INJ 1,000 ML IV SCH ×2 (17:00→22:48)
[2017-12-04] MEDS: MIDODRINE 5 MG TAB PO SCH (17:00)
[2017-12-05 00:44] VITALS: BP 123/66; PULSE 98; RESP 18; TEMP 96.2; O2SAT 96
[2017-12-05] MEDS: hydrOXYzine HCL 25 MG TAB PO PRN ×3 (01:12→17:56)
[2017-12-05] MEDS: MIDODRINE 5 MG TAB PO SCH ×3 (04:24→17:56)
[2017-12-05] MEDS: ALBUMIN 25% INJ 100 ML IV SCH ×2 (04:24→16:08)
[2017-12-05] MEDS: PENTOXIFYLLINE 400 MG CONTROLLED RELEASE TAB PO SCH ×2 (04:24→16:08)
[2017-12-05] MEDS: OCTREOTIDE INJ 100 MCG/ML VIAL SQ SCH ×2 (04:25→16:08)
[2017-12-05] MEDS: metroNIDAZOLE 500 MG INJ 100 ML IV SCH ×3 (04:39→19:12)
[2017-12-05 07:50] LABS: BICARBONATE 14.9 MEQ/L (21.0-32.0); CALCIUM 7.9 MG/DL (8.5-10.1); CREATININE 1.91 MG/DL (0.60-1.30)
[2017-12-05 08:00] VITALS: BP 126/65; PULSE 91; RESP 17; TEMP 97.1; O2SAT 96
[2017-12-05] MEDS: CHOLESTYRAMINE 4 GM PACKET PO SCH ×2 (08:04→18:04)
[2017-12-05] MEDS: PANTOPRAZOLE SOD 40 MG DELAYED RELEASE TAB PO SCH (08:04)
[2017-12-05] MEDS: LACTULOSE SYRUP 20 GM/30 ML CUP PO SCH ×3 (08:04→17:56)
[2017-12-05] MEDS: chlordiazePOXIDE 25 MG CAP PO SCH ×2 (08:05→19:53)
[2017-12-05] MEDS: RIFAXIMIN 550 MG TAB PO SCH ×2 (08:05→19:52)
[2017-12-05] MEDS: POTASSIUM CHLORIDE 10 MEQ CAP PO SCH ×2 (08:05→19:53)
[2017-12-05] MEDS: PHYTONADIONE 5 MG/SWFI 5 ML ORAL SYR PO SCH (08:06)
[2017-12-05] MEDS: SODIUM CHLORIDE 0.9% FLUSH 10 ML FLUSH IV FLUSH SCH ×2 (08:06→19:53)
[2017-12-05 12:00] VITALS: BP 115/61; PULSE 101; RESP 17; TEMP 97; O2SAT 99
--- NOTE | 2017-12-05 12:21 | HHI.NPPN ---
Subjective History of Present Illness The patient is a 37 yo [place] male who presented to this facility with complaints of abdominal pain, malaise, and jaundice. He has had 3 admissions to this facility in the past month with the last between 11/24 and 11/29 where he signed out AMA. Was recently diagnosed with liver cirrhosis, but unfortunately continued to drink at home. Mother and aunt present in the room---mother lives in [place] and says that he has "never been sick". He apparently has been drinking heavily since he was a teenager. Otherwise, denies any PMHx. He is a poor historian as he is lethargic. We were consulted as his renal functions have started to deteriorate. His SCr at time of consult is 1.91 rising from 1.59 12/02 and admitting SCr of 1.34. He was 1.19 at his sign out on 11/29, 1.02 on 11/24, 0.4-0.31 Oct 2017. Interval History Mother by bedside. Patient complaining of pain requesting additional pain medication. Review of Systems General Constitutional: Fatigue Objective Data Data Vital Signs Date Time Temp Pulse Resp B/P (MAP) Pulse Ox O2 Delivery O2 Flow Rate FiO2 12/05/17 08:00 97.1 91 17 126/65 (85) 96 12/05/17 00:44 96.2 98 18 123/66 (85) 96 12/04/17 20:02 90 12/04/17 20:00 96.2 97 18 133/70 (91) 99 12/04/17 16:00 97.3 102 16 115/59 (77) 98 -: 12/04/17 0656 12/05/17 0554 Physical Exam General Appearance: No Acute Distress, Comfortable Eyes Eye Exam: Jaundice Neck Neck Exam: Trachea Midline Pulmonary Resp Exam: Clear Bilaterally, Breath Sounds Equal Cardiology CV Exam: Regular, Normal Sinus Rhythm Gastrointestinal/Abdomen GI Exam: Soft, Non-Tender, Distended Neurologic Neuro Exam: Awake, Speech Clear Assessment/Plan Problem List: (1) Hepatorenal syndrome ICD Codes: K76.7 - Hepatorenal syndrome Plan: Continue IV albumin, somatostatin as well as midodrine. Patient's creatinine level is slightly improved today and he remains be determined whether not this trend will continue. Hopefully the patient's renal function will improve however if his azotemia continues to worsen at some point renal replacement therapy may have to be considered. Should be noted however study indicated a mortality of patient's with hepatorenal syndrome who were not transplant candidates at 6 months was 84 % with a median survival of 21 days. I discussed with the patient and his mother that generally dialysis is indicated in the setting of hepatorenal syndrome and if the patient is a liver transplant candidate which unfortunately does not appear to be the case currently. If they do opt for dialysis with no improvement in his renal function they were advised that his prognosis would most likely be very poor on dialysis as the underlying issue here is hepatic dysfunction. (2) Acute renal insufficiency ICD Codes: N28.9 - Disorder of kidney and ureter, unspecified Plan: Secondary to the above. (3) Cirrhosis with alcoholism ICD Codes: K70.30 - Alcoholic cirrhosis of liver without ascites Status: Acute Plan: Not a transplant candidate due to ongoing EtOH abuse (4) Hypokalemia ICD Codes: E87.6 - Hypokalemia Plan: Repletion ordered (5) Acidosis ICD Codes: E87.2 - Acidosis Plan: Worsening. I will initiate sodium bicarbonate replacement. (6) Ascites ICD Codes: R18.8 - Other ascites (7) Hypoalbuminemia ICD Codes: E88.09 - Other disorders of plasma-protein metabolism, not elsewhere classified Plan: Related to liver disease (8) Leukocytosis ICD Codes: D72.829 - Elevated white blood cell count, unspecified Plan: Peritoneal fluid from 12/02 culture pending. Noted increased in peritoneal WBC count. Management as per ID Problem Qualifiers (1) Cirrhosis with alcoholism: Qualified Codes: K70.31 - Alcoholic cirrhosis of liver with ascites Daljit Coronado MD Dec 05, 2017 12:21
[2017-12-05] MEDS ORDERED: POTASSIUM BICARBONATE 25 MEQ EFFERVESCENT TAB PO ONE (13:15)
--- NOTE | 2017-12-05 15:22 | HHI.GIFU ---
Subjective Remarks Pt sleeping during my exam Mother at bedside, recent history obtained from her She states he has been complaining of all over abdominal pain Also complaining of nausea (Ava Santos) Objective Vitals I&O Vital Signs Date Time Temp Pulse Resp B/P (MAP) Pulse Ox O2 Delivery O2 Flow Rate FiO2 12/05/17 12:00 97.0 101 17 115/61 (79) 99 12/05/17 08:00 97.1 91 17 126/65 (85) 96 12/05/17 00:44 96.2 98 18 123/66 (85) 96 12/04/17 20:02 90 12/04/17 20:00 96.2 97 18 133/70 (91) 99 12/04/17 16:00 97.3 102 16 115/59 (77) 98 I/O 12/04/17 12/04/17 12/04/17 12/05/17 12/05/17 12/05/17 07:00 15:00 23:00 07:00 15:00 23:00 Intake Total 360 ml 0 ml 1300 ml 1440 ml Output Total 300 ml Balance 360 ml 0 ml 1300 ml 1140 ml Intake Oral 360 ml 1300 ml 490 ml IV Total 0 ml 950 ml Output Urine Total 300 ml # Voids 3 3 3 # Bowel Movements 1 Laboratory Laboratory Tests Test 12/05/17 05:54 Blood Urea Nitrogen 30 Creatinine 1.91 Random Glucose 79 Calcium Level 7.9 Sodium Level 133 Potassium Level 3.3 Chloride Level 105 Carbon Dioxide Level 14.9 Anion Gap 13 Estimat Glomerular Filtration Rate 39 Date/Time Source Procedure Growth Status 11/30/17 17:58 Blood Line Aerobic Blood Culture - Final NO GROWTH IN 5 DAYS Complete 11/30/17 17:58 Blood Line Anaerobic Blood Culture - Final NO GROWTH IN 5 DAYS Complete 12/02/17 11:40 Fluid Peritoneal Fluid Gram Stain - Final Complete 12/02/17 11:40 Fluid Peritoneal Fluid Body Fluid Culture - Final NO GROWTH IN 72 HRS.--AEROBICALLY OR ... Complete Imaging Last Impressions Renal Ultrasound 12/03/17 0000 Signed Impressions: Service Date/Time: Sunday, December 03, 2017 15:27 - CONCLUSION: Kidneys are somewhat prominent in size but otherwise within normal limits. No focal mass or hydronephrosis identified. Felipe Luo MD Cyst Biopsy Asp-Paracentesis US 12/02/17 0000 Signed Impressions: Service Date/Time: Saturday, December 02, 2017 11:37 - CONCLUSION: Uncomplicated ultrasound guided paracentesis. Julian Brantley MD Chest X-Ray 11/30/17 0000 Signed Impressions: Service Date/Time: Thursday, November 30, 2017 17:13 - CONCLUSION: No acute disease. Braden Akers Jr., MD Physical Exam HEENT: Normocephalic; atraumatic; + jaundice. CHEST: Even/unlabored CARDIAC: RRR ABDOMEN: Distended, soft, bowel sounds active, Gauze over previous paracentesis site, per mother shirt was saturated from drainage this morning EXTREMITIES: BLE edema SKIN: Multiple wounds generalized over body from cigarette cuellar and excoriations from scratching. (+) jaundice (Ava Santos) Assessment and Plan Plan Assessment - Alcohol hepatitis- Current labs- AST-62 ALT-49 Alk phos-292 T bili-23.7 DF-52. Pt was recently admitted, left AMA, returned after 19 hours of being home. Reports one bloody while home, however mother at bedside thinks this is unlikely. - Cirrhosis- MELD-27. Previous liver work up as follows: Hepatitis panel negative, celiac panel negative, FINA negative, AMA borderline elevated, ASMA positive but low titer, Alpha 1 antitrypsin not elevated, Ceruloplasmin slightly elevated, Ferritin-708. Platelets WNL. Albumin 1.6 - Ascites- Paracentesis was last done on November 25 with 4,400 cc of clear, yellow fluid removed, fluid culture negative. SAAG-1.5 consistent with portal HTN as cause of ascites. Pt complaining of worsening abdominal distention. - Pancreatitis- elevated lipase-956 - Coagulopathy- INR 1.8 - Leukocytosis- WBC 34.3. ID following. Afebrile. On Rocephin and Flagyl - ELKIN- GFR-49 decreased since last admission CT abdomen and pelvis W contrast (11/24) --> Moderate amount of ascites. Hepatomegaly. 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 12/03/17 LFTs, wbc remain high, s/p paracentesis on 12/02 with 3700 ml output labs pending Diuretics on hold due to worsening kidney function (12/05) --> Per pts mother has been complaining about generalized abdominal pain and nausea, states has been very irritable. Remains off of diuretics due to decreased renal function. T bili remains elevated, would benefit from steroids, need clearance from ID given leukocytosis. Peritoneal fluid negative, no SBP. Ammonia WNL. Lipase trending down. INR 1.8- vit K. Plan: - Low salt diet - Cont. Lactulose - Cont. Pentoxifylline - Cont. Rifaximin - Cont Protonix - cont. Ceftriaxone and Flagyl - Will hold Spironolactone due to worsening kidney function - Octreotide gtt - Vitamin K - (CBC, CMP, lipase, ammonia) in am - ETOH cessation - Supportive care Further recommendations to follow based on clinical course Pt has been seen and examined by myself and Dr. Patel and this note is written on his behalf (Ava Santos) Physician Comments Agree with above assessment and plan. will follow up with you. (Arely Patel MD) Ava Santos Dec 05, 2017 15:22 Arely Patel MD Dec 05, 2017 15:44
[2017-12-05 16:00] VITALS: BP 136/78; PULSE 88; RESP 17; TEMP 95.3; O2SAT 98
[2017-12-05] MEDS: SODIUM BICARBONATE 8.4% INJ 75 MEQ in SODIUM CHLOR 0.45% 1000 ML INJ 1,000 ML IV SCH (17:54)
[2017-12-05] MEDS: cefTRIAXone INJ 1,000 MG in SODIUM CHLORIDE 0.9% INJ 100 ML IV SCH (17:56)
[2017-12-05 20:00] VITALS: BP 133/73; PULSE 98; RESP 20; O2SAT 100
[2017-12-06] VITALS: BP 139/82; PULSE 102; RESP 18; TEMP 96; O2SAT 100
[2017-12-06] MEDS: OCTREOTIDE INJ 100 MCG/ML VIAL SQ SCH ×4 (00:05→23:19)
[2017-12-06] MEDS: PENTOXIFYLLINE 400 MG CONTROLLED RELEASE TAB PO SCH ×4 (00:05→23:19)
[2017-12-06] MEDS: ALBUMIN 25% INJ 100 ML IV SCH ×4 (00:06→23:20)
[2017-12-06] MEDS: metroNIDAZOLE 500 MG INJ 100 ML IV SCH ×4 (01:56→19:42)
[2017-12-06] MEDS: SODIUM BICARBONATE 8.4% INJ 75 MEQ in SODIUM CHLOR 0.45% 1000 ML INJ 1,000 ML IV SCH ×3 (01:57→22:45)
[2017-12-06] MEDS: hydrOXYzine HCL 25 MG TAB PO PRN ×3 (02:02→15:32)
[2017-12-06 04:00] VITALS: BP 125/73; PULSE 96; RESP 20; O2SAT 99
[2017-12-06] MEDS: MIDODRINE 5 MG TAB PO SCH ×3 (06:32→18:35)
[2017-12-06 08:00] VITALS: BP 118/58; PULSE 88; RESP 16; TEMP 96.6; O2SAT 97
[2017-12-06] MEDS: SODIUM CHLORIDE 0.9% FLUSH 10 ML FLUSH IV FLUSH SCH ×2 (09:00→21:00)
[2017-12-06] MEDS: CHOLESTYRAMINE 4 GM PACKET PO SCH ×3 (09:04→17:00)
[2017-12-06] MEDS: RIFAXIMIN 550 MG TAB PO SCH ×2 (09:05→21:27)
[2017-12-06] MEDS: POTASSIUM CHLORIDE 10 MEQ CAP PO SCH ×2 (09:05→21:28)
[2017-12-06] MEDS: PANTOPRAZOLE SOD 40 MG DELAYED RELEASE TAB PO SCH (09:05)
[2017-12-06] MEDS: LACTULOSE SYRUP 20 GM/30 ML CUP PO SCH ×3 (09:05→18:35)
[2017-12-06] MEDS: PHYTONADIONE 5 MG/SWFI 5 ML ORAL SYR PO SCH (09:05)
[2017-12-06] MEDS: chlordiazePOXIDE 25 MG CAP PO SCH (09:05)
--- NOTE | 2017-12-06 11:56 | HHI.NPPN ---
Subjective History of Present Illness The patient is a 37 yo [place] male who presented to this facility with complaints of abdominal pain, malaise, and jaundice. He has had 3 admissions to this facility in the past month with the last between 11/24 and 11/29 where he signed out AMA. Was recently diagnosed with liver cirrhosis, but unfortunately continued to drink at home. Mother and aunt present in the room---mother lives in [place] and says that he has "never been sick". He apparently has been drinking heavily since he was a teenager. Otherwise, denies any PMHx. He is a poor historian as he is lethargic. We were consulted as his renal functions have started to deteriorate. His SCr at time of consult is 1.91 rising from 1.59 12/02 and admitting SCr of 1.34. He was 1.19 at his sign out on 11/29, 1.02 on 11/24, 0.4-0.31 Oct 2017. Interval History Labs pending today Pt still encephalopathic, but a but more alert today. c/o nausea & diarrhea Appetite poor. Some SOB as well stating "diaphragm feels compressed" (Brittney Strickland) Review of Systems General Constitutional: Fatigue (Brittney Strickland) Respiratory Lungs: SOB (Brittney Strickland) Gastrointestinal Gastrointestinal: Nausea & Vomiting, Diarrhea (Brittney Strickland) Objective Data Data Vital Signs Date Time Temp Pulse Resp B/P (MAP) Pulse Ox O2 Delivery O2 Flow Rate FiO2 12/06/17 08:00 96.6 88 16 118/58 (78) 97 12/06/17 04:00 96 20 125/73 (90) 99 12/06/17 03:51 18 12/06/17 00:00 96.0 102 18 139/82 (101) 100 12/05/17 20:00 98 20 133/73 (93) 100 12/05/17 16:00 95.3 88 17 136/78 (97) 98 12/05/17 12:00 97.0 101 17 115/61 (79) 99 (Brittney Strickland) -: 12/04/17 0656 12/05/17 0554 Imaging Last Impressions Renal Ultrasound 12/03/17 0000 Signed Impressions: Service Date/Time: Sunday, December 03, 2017 15:27 - CONCLUSION: Kidneys are somewhat prominent in size but otherwise within normal limits. No focal mass or hydronephrosis identified. Felipe Luo MD Cyst Biopsy Asp-Paracentesis US 12/02/17 0000 Signed Impressions: Service Date/Time: Saturday, December 02, 2017 11:37 - CONCLUSION: Uncomplicated ultrasound guided paracentesis. Julian Brantley MD Chest X-Ray 11/30/17 0000 Signed Impressions: Service Date/Time: Thursday, November 30, 2017 17:13 - CONCLUSION: No acute disease. Braden Akers Jr., MD Medication Review Current Medications Medications (Trade) Dose Ordered Sig/Virgil Route Start Time Stop Time Status Last Admin (NS Flush) 2 ml UNSCH PRN IV FLUSH 11/30/17 17:30 12/03/17 13:52 (NS Flush) 2 ml BID IV FLUSH 11/30/17 21:00 12/03/17 09:00 (Narcan Inj) 0.4 mg UNSCH PRN IV PUSH 11/30/17 17:30 Metronidazole 100 ml @ 100 mls/hr Q6H IV 12/01/17 00:00 12/06/17 06:00 Ceftriaxone Sodium 1000 mg/ Sodium Chloride 100 ml @ 200 mls/hr Q24H IV 12/01/17 17:00 12/05/17 17:56 (Xifaxan) 550 mg BID PO 11/30/17 21:00 12/06/17 09:05 (Lactulose Liq) 30 ml TID PO 12/01/17 09:00 12/06/17 09:05 (Protonix) 40 mg DAILY PO 12/02/17 09:00 12/06/17 09:05 (Roxicodone) 5 mg Q4H PRN PO 12/01/17 18:15 12/06/17 06:50 (Mephyton Liq) 5 mg DAILY PO 12/02/17 09:00 12/06/17 09:05 (KCl) 20 meq BID PO 12/03/17 21:00 12/06/17 09:05 (Librium) 25 mg BID PO 12/04/17 21:00 12/06/17 09:05 Sodium Bicarbonate 75 meq/Sodium Chloride 1,075 ml @ 100 mls/hr [id number] IV 12/04/17 17:00 12/06/17 01:57 (Proamatine) 7.5 mg TID@07,12,17 PO 12/04/17 17:00 12/06/17 06:32 (Atarax) 50 mg Q6H PRN PO 12/05/17 19:30 12/06/17 09:05 (Questran 4 Gm Pkt) 4 gm TIDAC PO 12/05/17 17:00 12/06/17 09:04 (TRENtal SR) 400 mg Q8H PO 12/06/17 08:00 12/06/17 09:04 Albumin Human 100 ml @ 60 mls/hr Q8H IV 12/06/17 08:00 12/06/17 09:04 (SandoSTATIN INJ) 200 mcg Q8H SQ 12/06/17 08:00 12/06/17 09:05 (Brittney Strickland) Physical Exam General Appearance: No Acute Distress, Comfortable (Brittney Strickland) Eyes Eye Exam: Jaundice (Brittney Strickland) Neck Neck Exam: Trachea Midline (Brittney Strickland) Pulmonary Resp Exam: Clear Bilaterally, Breath Sounds Equal (Brittney Strickland) Cardiology CV Exam: Regular, Normal Sinus Rhythm (Brittney Strickland) Gastrointestinal/Abdomen GI Exam: Distended (Brittney Strickland) Extremeties Extremities Exam: Moderate Edema (ankles) (Brittney Strickland) Neurologic Neuro Exam: Awake (Brittney Strickland) Assessment/Plan Problem List: (1) Hepatorenal syndrome ICD Codes: K76.7 - Hepatorenal syndrome Plan: Continue IV albumin, somatostatin as well as midodrine. Labs unfortunately pending today. Ordered stat and program project manager in room at end of exam. Will review results once available. Hopefully the patient's renal function will improve however if his azotemia continues to worsen at some point renal replacement therapy may have to be considered. Should be noted however study indicated a mortality of patient's with hepatorenal syndrome who were not transplant candidates at 6 months was 84 % with a median survival of 21 days. I discussed with the patient and his mother that generally dialysis is indicated in the setting of hepatorenal syndrome and if the patient is a liver transplant candidate which unfortunately does not appear to be the case currently. If they do opt for dialysis with no improvement in his renal function they were advised that his prognosis would most likely be very poor on dialysis as the underlying issue here is hepatic dysfunction. (2) Acute renal insufficiency ICD Codes: N28.9 - Disorder of kidney and ureter, unspecified Plan: Secondary to the above. (3) Cirrhosis with alcoholism ICD Codes: K70.30 - Alcoholic cirrhosis of liver without ascites Status: Acute Plan: Not a transplant candidate due to ongoing EtOH abuse Abdomen distended today. Will defer to GI if paracentesis needs performed. (4) Hypokalemia ICD Codes: E87.6 - Hypokalemia Plan: Repletion ordered (5) Acidosis ICD Codes: E87.2 - Acidosis Plan: Continue on sodium bicarbonate replacement. (6) Ascites ICD Codes: R18.8 - Other ascites (7) Hypoalbuminemia ICD Codes: E88.09 - Other disorders of plasma-protein metabolism, not elsewhere classified Plan: Related to liver disease (8) Leukocytosis ICD Codes: D72.829 - Elevated white blood cell count, unspecified Plan: Peritoneal fluid from 12/02 culture pending. Noted increased in peritoneal WBC count. Management as per ID (Brittney Strickland) Plan The exam, history, and the medical decision-making described in the above note were completed with the assistance of the PA-C. I reviewed and agree with the findings presented. (Daljit Coronado MD) Problem Qualifiers (1) Cirrhosis with alcoholism: Qualified Codes: K70.31 - Alcoholic cirrhosis of liver with ascites Brittney Strickland Dec 06, 2017 11:56 Daljit Coronado MD Dec 07, 2017 18:18
[2017-12-06 12:00] VITALS: BP 128/69; PULSE 92; RESP 18; TEMP 97.2; O2SAT 97
--- NOTE | 2017-12-06 12:40 | HHI.HCPN ---
Reason for visit a. To assist with evaluation and management of symptoms including: Pain, pruritus b. To assist medical decision maker(s) with: better understanding of current medical conditions; weighing benefits/burdens of medical treatment options; making medical treatment decisions. Subjective/Interval History Patient seen for follow-up of symptom management and goals of care. Atarax was increased to 50 mg p.o. every 6 hours yesterday for uncontrolled pruritus. Patient is seen this morning napping, her family had been up walking around the room earlier today. He remains significantly jaundiced but less pruritic. His mother, father, sister and her are at bedside. Mother has multiple questions regarding the possibility of transplant. She is concerned about his level of agitation and would like him medicated to reduce his irritation. He continues to complain of pain in his "diaphragm", abdomen and generalized muscle pain. He is receiving oxycodone approximately every 4 hours. He remains on rifaximin and lactulose for ammonia control, however the lactulose is causing diarrhea and he is now having some incontinence of bowel. He states this is increasing his agitation, in addition to the fact that he feels "terrible", and that everything is irritating him. Laboratory studies today have been requested and are pending. . Family/friend interactions Spoke with the mother at bedside at length regarding patient's prognosis, complications, risks and benefits of options to include the requirements for being placed on the transplant list as well as the likelihood of being accepted for an available organ. Mother states that all family members are willing to be tested as a potential donor and would be willing to undergo transplant. I did advise her that he would have to be sober for 6 months minimum prior to any consideration of that and then would have to continue through the period of time for workup, evaluation, etc. at a tertiary center. He would have to demonstrate compliance with medical treatment, which has been troublesome in the past. He would also have to be able to afford the prescribed medications and have transport to and be willing to follow up with the physician as ordered. She stated she understood and planned to stay here with her son through the duration. . Advance Directives Living Will: Never completed Health Care Surrogate: Copy in medical record Durable Power of Boiler Reliner: Never completed Advance Directive Specifics Date completed: 11/28/2017. . Health Care Surrogate(s): He has elected his mother Linda العلي as his healthcare surrogate. . Documented care wishes: No living will available. . Objective Vital Signs Date Time Temp Pulse Resp B/P (MAP) Pulse Ox O2 Delivery O2 Flow Rate FiO2 12/06/17 08:00 96.6 88 16 118/58 (78) 97 12/06/17 04:00 96 20 125/73 (90) 99 12/06/17 03:51 18 12/06/17 00:00 96.0 102 18 139/82 (101) 100 12/05/17 20:00 98 20 133/73 (93) 100 12/05/17 16:00 95.3 88 17 136/78 (97) 98 12/05/17 12:00 97.0 101 17 115/61 (79) 99 Intake & Output 12/06/17 12/06/17 07:00 19:00 Intake Total 400 ml Balance 400 ml IV Total 400 ml # Voids 3 # Bowel Movements 0 Physical Exam CONSTITUTIONAL/GENERAL: This is an adequately nourished patient, in no apparent distress. TUBES/LINES/DRAINS: PIV right wrist. SKIN: Significant jaundice, no rashes, or lesions. Ecchymoses on upper extremities. Multiple scabbed lesions seen on all extremities and across trunk. HEAD: Atraumatic. Normocephalic. EYES: Pupils equal and round and reactive. Extraocular motions intact. Scleral icterus. No injection or drainage. Fundi not examined. CARDIOVASCULAR: Regular rate and rhythm, S1, S2 with 2/6 systolic ejection murmur, without gallops, or rubs. No JVD. Peripheral pulses symmetric. RESPIRATORY/CHEST: Symmetric, unlabored respirations. Clear to auscultation. Breath sounds equal bilaterally. No wheezes, rales, or rhonchi. GASTROINTESTINAL: Abdomen soft, distended, tender to palpation. Unable to evaluate organomegaly due to body habitus but noted on imaging studies to have hepatosplenomegaly. GENITOURINARY: Without palpable bladder distension. Voiding. MUSCULOSKELETAL: Extremities without clubbing, cyanosis, or edema. No joint tenderness or effusion noted. No calf tenderness. No mottling or clubbing. NEUROLOGICAL: Arousable, dozes off during conversation, oriented. PSYCHIATRIC: Irritable, occasionally agitated. No obvious anxiety/depression. no apparent hallucinations or other psychotic thought process. . Diagnostic Tests Laboratory Laboratory Tests Test 12/03/17 16:51 12/04/17 06:56 12/04/17 07:49 12/05/17 05:54 Lactic Acid Level 1.5 mmol/L (0.4-2.0) Phosphorus Level 3.3 MG/DL (2.5-4.9) Total Creatine Kinase 49 U/L (39-308) 25-Hydroxy Vitamin D Total 25.0 ng/ML (30-100) Parathyroid Hormone (Intact) 62.8 PG/ML (12.4-76.8) Complement C3 110 MG/DL (90-180) Complement C4 20 MG/DL (10-40) White Blood Count 37.4 TH/MM3 (4.0-11.0) Red Blood Count 3.63 MIL/MM3 (4.50-5.90) Hemoglobin 13.0 GM/DL (13.0-17.0) Hematocrit 37.1 % (39.0-51.0) Mean Corpuscular Volume 102.2 FL (80.0-100.0) Mean Corpuscular Hemoglobin 35.9 PG (27.0-34.0) Mean Corpuscular Hemoglobin Concent 35.1 % (32.0-36.0) Red Cell Distribution Width 16.1 % (11.6-17.2) Platelet Count 151 TH/MM3 (150-450) Mean Platelet Volume 7.9 FL (7.0-11.0) Neutrophils (%) (Auto) 84.5 % (16.0-70.0) Lymphocytes (%) (Auto) 4.1 % (9.0-44.0) Monocytes (%) (Auto) 9.5 % (0.0-8.0) Eosinophils (%) (Auto) 1.1 % (0.0-4.0) Basophils (%) (Auto) 0.8 % (0.0-2.0) Neutrophils # (Auto) 31.6 TH/MM3 (1.8-7.7) Lymphocytes # (Auto) 1.5 TH/MM3 (1.0-4.8) Monocytes # (Auto) 3.5 TH/MM3 (0-0.9) Eosinophils # (Auto) 0.4 TH/MM3 (0-0.4) Basophils # (Auto) 0.3 TH/MM3 (0-0.2) CBC Comment AUTO DIFF Differential Total Cells Counted 100 Neutrophils % (Manual) 75 % (16-70) Band Neutrophils % 4 % (0-6) Lymphocytes % 3 % (9-44) Monocytes % 13 % (0-8) Eosinophils % 2 % (0-4) Neutrophils # (Manual) 30.7 TH/MM3 (1.8-7.7) Metamyelocytes 1 % (0-1) Myelocytes 1 % (0-0) Promyelocytes 1 % (0-0) Differential Comment FINAL DIFF MANUAL Platelet Estimate LOW (NORMAL) Platelet Morphology Comment NORMAL (NORMAL) Prothrombin Time 17.8 SEC (9.8-11.6) Prothromb Time International Ratio 1.8 RATIO Ammonia 18 MCMOL/L (11-32) Blood Urea Nitrogen 35 MG/DL (7-18) 30 MG/DL (7-18) Creatinine 2.00 MG/DL (0.60-1.30) 1.91 MG/DL (0.60-1.30) Random Glucose 107 MG/DL (74-106) 79 MG/DL (74-106) Total Protein 6.0 GM/DL (6.4-8.2) Albumin 1.5 GM/DL (3.4-5.0) Calcium Level 7.5 MG/DL (8.5-10.1) 7.9 MG/DL (8.5-10.1) Alkaline Phosphatase 328 U/L (45-117) Aspartate Amino Transf (AST/SGOT) 63 U/L (15-37) Alanine Aminotransferase (ALT/SGPT) 48 U/L (12-78) Total Bilirubin 23.8 MG/DL (0.2-1.0) Sodium Level 132 MEQ/L (136-145) 133 MEQ/L (136-145) Potassium Level 3.1 MEQ/L (3.5-5.1) 3.3 MEQ/L (3.5-5.1) Chloride Level 104 MEQ/L (98-107) 105 MEQ/L (98-107) Carbon Dioxide Level 13.9 MEQ/L (21.0-32.0) 14.9 MEQ/L (21.0-32.0) Anion Gap 14 MEQ/L (5-15) 13 MEQ/L (5-15) Estimat Glomerular Filtration Rate 37 ML/MIN (>89) 39 ML/MIN (>89) Lipase 456 U/L (73-393) . Result Diagram: 12/04/17 0656 12/05/17 0554 Microbiology Microbiology Date/Time Source Procedure Growth Status 11/30/17 17:58 Blood Line Aerobic Blood Culture - Final NO GROWTH IN 5 DAYS Complete 11/30/17 17:58 Blood Line Anaerobic Blood Culture - Final NO GROWTH IN 5 DAYS Complete 12/02/17 11:40 Fluid Peritoneal Fluid Gram Stain - Final Complete 12/02/17 11:40 Fluid Peritoneal Fluid Body Fluid Culture - Final NO GROWTH IN 72 HRS.--AEROBICALLY OR ... Complete . Imaging Last Impressions Renal Ultrasound 12/03/17 0000 Signed Impressions: Service Date/Time: Sunday, December 03, 2017 15:27 - CONCLUSION: Kidneys are somewhat prominent in size but otherwise within normal limits. No focal mass or hydronephrosis identified. Felipe Luo MD Cyst Biopsy Asp-Paracentesis US 12/02/17 0000 Signed Impressions: Service Date/Time: Saturday, December 02, 2017 11:37 - CONCLUSION: Uncomplicated ultrasound guided paracentesis. Julian Brantley MD Chest X-Ray 11/30/17 0000 Signed Impressions: Service Date/Time: Thursday, November 30, 2017 17:13 - CONCLUSION: No acute disease. Braden Akers Jr., MD . Procedures 12/02/2017: Paracentesis of 3700 mL . Assessment and Plan Disease Oriented Problem List: (1) Portosystemic shunt, spontaneous (2) Hyperammonemia (3) Cirrhosis with alcoholism Symptom Scale: (1) Pruritus (2) Pain, generalized Pertinent Non-Medical Issues Psychosocial:He was born and completed high school in [place] then moved to [place] with his parents when they retired. He has never been or had children. He has never been in the armed service. He works at [employer]. Spiritual:Identifies with the Christianity ovidio. Legal: None identified. Ethical issues impacting care: None identified. . Important Contacts Mother: Linda العلي . Prognosis Prognosis is guarded. He has a long history of alcohol abuse with subsequent liver decline. His meld score is 25. He voices no intention for alcohol cessation. His ammonia continues to climb and he is somewhat noncompliant with medical therapy. He is likely to experience continued decline in complications with recurrent hospitalizations. . Code Status: Full Code Plan PLAN: Legal decision maker: At this time the patient is able to make his own decisions. As his physical condition declines this could be problematic in light of his hyperammonemia. He has named his mother healthcare surrogate but did not have an alternate suggestion. Goals: Aggressive CODE STATUS: FULL CODE SYMPTOMS: * Pain: He is receiving oxycodone, without Tylenol for his pain which he states does improve the pain, however the pain resumes within a few hours. He is at risk for continued discomfort due to recurrent ascites, bedbound status and invasive lines. He is receiving oxycodone 5 mg every 4 hours as needed for pain greater than 5, which he states is adequate to manage his pain. * Pruritus: He is receiving hydroxyzine, 50 mg every 6 hours as needed for itching. He remains mildly pruritic, but improved on the increased dose. He may benefit from the addition of steroids, which GI has stated they wish to add , if okay with infectious disease. Palliative care will continue to follow the patient during hospital course as condition evolves, to assist patient/decision-maker with understanding of their medical conditions, weighing benefits/burdens of treatment options, for clarification of goals of treatment. Additionally will assist with any symptoms of palliative concern. . Attestation To help prompt me to consider important information that might be impacting today's encounter and assessment, information from prior notes written by myself or my colleagues may have been "brought forward" into today's note. My signature on this note, however, is an attestation that I personally performed the exam, history, and/or decision-making noted today, and, unless otherwise indicated, the interactions with patient, family, and staff as well as the review of records all occurred today. I also attest that the listed assessment and stated plan reflect my best clinical judgment today based on the combination of historical information, prior notes, and today's exam/ interactions. When time spent is documented, it refers only to time spent today by the signer, or if indicated, combined time spent today by collaborating physician/nurse practitioner. . Ariana Pedroza Dec 06, 2017 12:40 pm
[2017-12-06 13:07] LABS: ALBUMIN 2.5 GM/DL (3.4-5.0); BICARBONATE 18.3 MEQ/L (21.0-32.0); CALCIUM 8.4 MG/DL (8.5-10.1); CREATININE 1.84 MG/DL (0.60-1.30)
--- NOTE | 2017-12-06 14:43 | HHI.GIFU ---
Subjective Remarks Mother at bedside Pt denies nausea, vomiting (+) BM today Continued diffuse abdominal pain (+) Pruritus (Ava Santos) Objective Vitals I&O Vital Signs Date Time Temp Pulse Resp B/P (MAP) Pulse Ox O2 Delivery O2 Flow Rate FiO2 12/06/17 08:00 96.6 88 16 118/58 (78) 97 12/06/17 04:00 96 20 125/73 (90) 99 12/06/17 03:51 18 12/06/17 00:00 96.0 102 18 139/82 (101) 100 12/05/17 20:00 98 20 133/73 (93) 100 12/05/17 16:00 95.3 88 17 136/78 (97) 98 I/O 12/05/17 12/05/17 12/05/17 12/06/17 12/06/17 12/06/17 06:59 14:59 22:59 06:59 14:59 22:59 Intake Total 1440 ml 100 ml 3355 ml 200 ml Output Total 300 ml Balance 1140 ml 100 ml 3355 ml 200 ml Intake Oral 490 ml 2200 ml IV Total 950 ml 100 ml 1155 ml 200 ml Output Urine Total 300 ml # Voids 3 4 3 # Bowel Movements 1 0 Laboratory Laboratory Tests Test 12/06/17 11:56 Blood Urea Nitrogen 34 Creatinine 1.84 Random Glucose 131 Albumin 2.5 Calcium Level 8.4 Phosphorus Level 2.0 Sodium Level 135 Potassium Level 3.4 Chloride Level 104 Carbon Dioxide Level 18.3 Anion Gap 13 Estimat Glomerular Filtration Rate 41 Date/Time Source Procedure Growth Status 11/30/17 17:58 Blood Line Aerobic Blood Culture - Final NO GROWTH IN 5 DAYS Complete 11/30/17 17:58 Blood Line Anaerobic Blood Culture - Final NO GROWTH IN 5 DAYS Complete 12/02/17 11:40 Fluid Peritoneal Fluid Gram Stain - Final Complete 12/02/17 11:40 Fluid Peritoneal Fluid Body Fluid Culture - Final NO GROWTH IN 72 HRS.--AEROBICALLY OR ... Complete Imaging Last Impressions Renal Ultrasound 12/03/17 0000 Signed Impressions: Service Date/Time: Sunday, December 03, 2017 15:27 - CONCLUSION: Kidneys are somewhat prominent in size but otherwise within normal limits. No focal mass or hydronephrosis identified. Felipe Luo MD Cyst Biopsy Asp-Paracentesis US 12/02/17 0000 Signed Impressions: Service Date/Time: Saturday, December 02, 2017 11:37 - CONCLUSION: Uncomplicated ultrasound guided paracentesis. Julian Barntley MD Chest X-Ray 11/30/17 0000 Signed Impressions: Service Date/Time: Thursday, November 30, 2017 17:13 - CONCLUSION: No acute disease. Braden Akers Jr., MD Physical Exam HEENT: Normocephalic; atraumatic; + jaundice. CHEST: Even/unlabored CARDIAC: RRR ABDOMEN: Distended, soft, bowel sounds active EXTREMITIES: BLE edema SKIN: Multiple wounds generalized over body from cigarette cuellar and excoriations from scratching. (+) jaundice (Ava Santos) Assessment and Plan Plan Assessment - Alcohol hepatitis- Current labs- AST-62 ALT-49 Alk phos-292 T bili-23.7 DF-52. Pt was recently admitted, left AMA, returned after 19 hours of being home. Reports one bloody while home, however mother at bedside thinks this is unlikely. - Cirrhosis- MELD-27. Previous liver work up as follows: Hepatitis panel negative, celiac panel negative, FINA negative, AMA borderline elevated, ASMA positive but low titer, Alpha 1 antitrypsin not elevated, Ceruloplasmin slightly elevated, Ferritin-708. Platelets WNL. Albumin 1.6 - Ascites- Paracentesis was last done on November 25 with 4,400 cc of clear, yellow fluid removed, fluid culture negative. SAAG-1.5 consistent with portal HTN as cause of ascites. Pt complaining of worsening abdominal distention. - Pancreatitis- elevated lipase-956 - Coagulopathy- INR 1.8 - Leukocytosis- WBC 34.3. ID following. Afebrile. On Rocephin and Flagyl - ELKIN- GFR-49 decreased since last admission CT abdomen and pelvis W contrast (11/24) --> Moderate amount of ascites. Hepatomegaly. 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 12/03/17 LFTs, wbc remain high, s/p paracentesis on 12/02 with 3700 ml output labs pending Diuretics on hold due to worsening kidney function (12/05) --> Per pts mother has been complaining about generalized abdominal pain and nausea, states has been very irritable. Remains off of diuretics due to decreased renal function. T bili remains elevated, would benefit from steroids, need clearance from ID given leukocytosis. Peritoneal fluid negative, no SBP. Ammonia WNL. Lipase trending down. INR 1.8- vit K. (12/06) No significant events over night. Pt denies nausea, vomiting. Continued abdominal pain. (+) BM today. Increase in WBCs noted. No repeat renal function from today. Remains on Pentoxifylline, Albumin, Octreotide gtt, Protonix, Lactulose, Xifaxan. Plan: - Low salt diet - Cont. Lactulose - Cont. Pentoxifylline - Cont. Rifaximin - Cont Protonix - cont. Ceftriaxone and Flagyl - Will hold Spironolactone due to worsening kidney function - Octreotide gtt - Vitamin K - (CBC, CMP, lipase, ammonia) in am - ETOH cessation - Supportive care Further recommendations to follow based on clinical course Pt has been seen and examined by myself and Dr. Patel and this note is written on his behalf (Ava Santos) Physician Comments As above, agree withholding Aldactone, will follow up with you. (Arely Patel MD) Ava Santos Dec 06, 2017 14:43 Arely Patel MD Dec 06, 2017 21:33
[2017-12-06 16:00] VITALS: BP 129/70; PULSE 82; RESP 16; TEMP 97.5; O2SAT 97
[2017-12-06 16:14] LABS: AMYLASE BODY FLUID 10 U/L; AMYLASE BODY FLUID TYPE PERITONEAL
--- NOTE | 2017-12-06 16:54 | HHI.PR ---
Subjective Remarks The patient had family and friends at the bedside. Their many questions were answered. The patient said that he was dying from liver failure. He said he wanted to ambulate around the hallways. He said he was feeling loopy. He said he was having a lot of bowel movements. He said his stomach incision was leaking. Objective Vitals Vital Signs Date Time Temp Pulse Resp B/P (MAP) Pulse Ox O2 Delivery O2 Flow Rate FiO2 12/06/17 08:00 96.6 88 16 118/58 (78) 97 12/06/17 04:00 96 20 125/73 (90) 99 12/06/17 03:51 18 12/06/17 00:00 96.0 102 18 139/82 (101) 100 12/05/17 20:00 98 20 133/73 (93) 100 I/O 12/05/17 12/05/17 12/05/17 12/06/17 12/06/17 12/06/17 07:00 15:00 23:00 07:00 15:00 23:00 Intake Total 1440 ml 100 ml 3355 ml 200 ml Output Total 300 ml Balance 1140 ml 100 ml 3355 ml 200 ml Intake Oral 490 ml 2200 ml IV Total 950 ml 100 ml 1155 ml 200 ml Output Urine Total 300 ml # Voids 3 4 3 # Bowel Movements 1 0 Result Diagram: 12/04/17 0656 12/06/17 1156 Imaging Last Impressions Renal Ultrasound 12/03/17 0000 Signed Impressions: Service Date/Time: Sunday, December 03, 2017 15:27 - CONCLUSION: Kidneys are somewhat prominent in size but otherwise within normal limits. No focal mass or hydronephrosis identified. Felipe Luo MD Cyst Biopsy Asp-Paracentesis US 12/02/17 0000 Signed Impressions: Service Date/Time: Saturday, December 02, 2017 11:37 - CONCLUSION: Uncomplicated ultrasound guided paracentesis. Julian Brantley MD Chest X-Ray 11/30/17 0000 Signed Impressions: Service Date/Time: Thursday, November 30, 2017 17:13 - CONCLUSION: No acute disease. Braden Akers Jr., MD Objective Remarks Gen: No distress. HEENT: + icterus. Lungs: no rales, no wheezes Heart: regular rhythm GI: distended but soft, bandage in place. Extremities: tr edema Neuro: no gross deficits. Psych: Flat affect. Procedures 12/02- paracentesis 3.7 L out Medications and IVs Current Medications Medications (Trade) Dose Ordered Sig/Virgil Route Start Time Stop Time Status Last Admin (NS Flush) 2 ml UNSCH PRN IV FLUSH 11/30/17 17:30 12/03/17 13:52 (NS Flush) 2 ml BID IV FLUSH 11/30/17 21:00 12/03/17 09:00 (Narcan Inj) 0.4 mg UNSCH PRN IV PUSH 11/30/17 17:30 Metronidazole 100 ml @ 100 mls/hr Q6H IV 12/01/17 00:00 12/06/17 12:16 Ceftriaxone Sodium 1000 mg/ Sodium Chloride 100 ml @ 200 mls/hr Q24H IV 12/01/17 17:00 12/05/17 17:56 (Xifaxan) 550 mg BID PO 11/30/17 21:00 12/06/17 09:05 (Lactulose Liq) 30 ml TID PO 12/01/17 09:00 12/06/17 12:16 (Protonix) 40 mg DAILY PO 12/02/17 09:00 12/06/17 09:05 (Roxicodone) 5 mg Q4H PRN PO 12/01/17 18:15 12/06/17 12:16 (Mephyton Liq) 5 mg DAILY PO 12/02/17 09:00 12/06/17 09:05 (KCl) 20 meq BID PO 12/03/17 21:00 12/06/17 09:05 (Librium) 25 mg BID PO 12/04/17 21:00 12/06/17 09:05 Sodium Bicarbonate 75 meq/Sodium Chloride 1,075 ml @ 100 mls/hr [id number] IV 12/04/17 17:00 12/06/17 01:57 (Proamatine) 7.5 mg TID@07,12,17 PO 12/04/17 17:00 12/06/17 12:16 (Atarax) 50 mg Q6H PRN PO 12/05/17 19:30 12/06/17 15:32 (Questran 4 Gm Pkt) 4 gm TIDAC PO 12/05/17 17:00 12/06/17 09:04 (TRENtal SR) 400 mg Q8H PO 12/06/17 08:00 12/06/17 15:32 Albumin Human 100 ml @ 60 mls/hr Q8H IV 12/06/17 08:00 12/06/17 15:33 (SandoSTATIN INJ) 200 mcg Q8H SQ 12/06/17 08:00 12/06/17 15:33 A/P Assessment and Plan Alcoholic liver cirrhosis with ascites S/P Paracentesis- 11/25 - 4L , again 12/02- 3.7 L -hold diuretics- with worsening renal functions. - ff BMP, ff LFTs -continue Librium- decrease to 10 mg daily 12/06 - GI following - monitor may need repeat paracentesis again in 1-2 days Acute on CKI- worsening renal functions- possible hepatorenal syndrome - increase in creatinine may be due to ineffective circulating volume from ascites - Hold aldactone. - close monitoring of BMP- creatinine stabilizing - Nephrology following. - continue IVF HC03 - + IV albumin- per Dr. Coronado Hypokalemia- K - up to 3.3 - on 20 meq po bid. give extra dose now - recheck in am Leukocytosis- possible SBP - ff cultures from last admission 11/25 - no growth so far -continue on IV flagyl and Ceftriaxone - ID service following - recheck CBC in am hx of hepatic encephalopathy- MS improved - continue Lactulose bid - wean off Librium. Pruritus-due to Liver disease - on Atarax - trial of cholestyramine- seemed to help PPx: Edin Blanton DO Dec 06, 2017 16:54
[2017-12-06] MEDS: cefTRIAXone INJ 1,000 MG in SODIUM CHLORIDE 0.9% INJ 100 ML IV SCH (18:35)
[2017-12-06 20:00] VITALS: BP 125/72; PULSE 90; RESP 18; TEMP 96.4; O2SAT 95
[2017-12-07] VITALS: BP 140/78; PULSE 108; RESP 20; TEMP 95.4; O2SAT 98
[2017-12-07] MEDS: metroNIDAZOLE 500 MG INJ 100 ML IV SCH ×4 (01:11→17:13)
[2017-12-07 04:06] VITALS: BP 126/62; PULSE 98; RESP 20; TEMP 96.7; O2SAT 97
[2017-12-07] MEDS: MIDODRINE 5 MG TAB PO SCH ×3 (06:10→17:16)
[2017-12-07 07:50] LABS: HEMATOCRIT 32.3 % (39.0-51.0); HEMOGLOBIN 11.2 GM/DL (13.0-17.0); MEAN CELL VOLUME 103.4 FL (80.0-100.0); MEAN CORPUSCULAR HEMOGLOBIN 35.7 PG (27.0-34.0); MEAN CORPUSCULAR HGB CONC 34.5 % (32.0-36.0); PLATELET COUNT 106 TH/MM3 (150-450); RED BLOOD COUNT 3.13 MIL/MM3 (4.50-5.90); RED CELL DISTRIBUTION WIDTH 15.7 % (11.6-17.2); WHITE BLOOD COUNT 31.7 TH/MM3 (4.0-11.0)
[2017-12-07 08:00] VITALS: BP 129/75; PULSE 96; RESP 19; TEMP 96.7; O2SAT 99
[2017-12-07 08:09] LABS: PHOSPHORUS 1.6 MG/DL (2.5-4.9)
[2017-12-07 08:29] LABS: ALBUMIN 2.5 GM/DL (3.4-5.0); BICARBONATE 16.1 MEQ/L (21.0-32.0); CALCIUM 8.2 MG/DL (8.5-10.1)
[2017-12-07 08:30] LABS: CREATININE 1.7 MG/DL (0.60-1.30)
[2017-12-07] MEDS: SODIUM CHLORIDE 0.9% FLUSH 10 ML FLUSH IV FLUSH SCH ×2 (09:00→21:00)
[2017-12-07] MEDS: SODIUM BICARBONATE 8.4% INJ 75 MEQ in SODIUM CHLOR 0.45% 1000 ML INJ 1,000 ML IV SCH (09:30)
[2017-12-07] MEDS: LACTULOSE SYRUP 20 GM/30 ML CUP PO SCH ×5 (09:56→21:00)
[2017-12-07] MEDS: CHOLESTYRAMINE 4 GM PACKET PO SCH ×3 (09:56→19:38)
[2017-12-07] MEDS: ALBUMIN 25% INJ 100 ML IV SCH ×2 (09:56→17:13)
[2017-12-07] MEDS: POTASSIUM CHLORIDE 10 MEQ CAP PO SCH ×2 (09:57→22:35)
[2017-12-07] MEDS: RIFAXIMIN 550 MG TAB PO SCH ×2 (09:57→22:35)
[2017-12-07] MEDS: PENTOXIFYLLINE 400 MG CONTROLLED RELEASE TAB PO SCH ×2 (09:57→17:15)
[2017-12-07] MEDS: PANTOPRAZOLE SOD 40 MG DELAYED RELEASE TAB PO SCH (09:57)
[2017-12-07] MEDS: OCTREOTIDE INJ 100 MCG/ML VIAL SQ SCH ×2 (09:59→17:14)
[2017-12-07] MEDS ORDERED: POTASSIUM CHLORIDE 20 MEQ CONTROLLED RELEASE TAB PO ONE (10:00)
[2017-12-07] MEDS ORDERED: SODIUM PHOSPHATE INJ 15 MMOL in SODIUM CHLORIDE 0.9% INJ 150 ML IV ONE (10:00)
[2017-12-07] MEDS: PHYTONADIONE 5 MG/SWFI 5 ML ORAL SYR PO SCH (10:00)
[2017-12-07 12:00] VITALS: BP 124/69; PULSE 93; RESP 19; TEMP 96.7; O2SAT 99
[2017-12-07] MEDS: hydrOXYzine HCL 25 MG TAB PO PRN ×2 (12:02→17:15)
--- NOTE | 2017-12-07 12:19 | HHI.PR ---
Subjective Remarks The patient was applying Chapstick to his cracked lips. He said that his bilirubin level was elevated. His family was at the bedside and had questions pertaining to lab values and pain medication. The patient said he would rather hold off on having a paracentesis for now. He did endorse shortness of breath and abdominal pain. Discussed with nursing. Objective Vitals Vital Signs Date Time Temp Pulse Resp B/P (MAP) Pulse Ox O2 Delivery O2 Flow Rate FiO2 12/07/17 08:00 96.7 96 19 129/75 (93) 99 12/07/17 04:06 96.7 98 20 126/62 (83) 97 12/07/17 00:00 95.4 108 20 140/78 (98) 98 12/06/17 20:00 96.4 90 18 125/72 (89) 95 12/06/17 16:00 97.5 82 16 129/70 (89) 97 I/O 12/06/17 12/06/17 12/06/17 12/07/17 12/07/17 12/07/17 07:00 15:00 23:00 07:00 15:00 23:00 Intake Total 200 ml 100 ml 1460 ml 240 ml Output Total 400 ml Balance 200 ml 100 ml 1060 ml 240 ml Intake Oral 720 ml 240 ml IV Total 200 ml 100 ml 740 ml Output Urine Total 400 ml # Voids 3 2 3 # Bowel Movements 0 0 0 Result Diagram: 12/07/1728 12/07/17 0728 Imaging Last Impressions Renal Ultrasound 12/03/17 0000 Signed Impressions: Service Date/Time: Sunday, December 03, 2017 15:27 - CONCLUSION: Kidneys are somewhat prominent in size but otherwise within normal limits. No focal mass or hydronephrosis identified. Felipe Luo MD Cyst Biopsy Asp-Paracentesis US 12/02/17 0000 Signed Impressions: Service Date/Time: Saturday, December 02, 2017 11:37 - CONCLUSION: Uncomplicated ultrasound guided paracentesis. Julian Brantley MD Chest X-Ray 11/30/17 0000 Signed Impressions: Service Date/Time: Thursday, November 30, 2017 17:13 - CONCLUSION: No acute disease. Braden Akers Jr., MD Objective Remarks Gen: No distress. HEENT: + icterus. Lungs: no rales, no wheezes. Heart: tachycardic. GI: distended but soft, bandage in place. Extremities: 1-2+ LE edema. Neuro: slow speech. Psych: Flat affect. Procedures 12/02- paracentesis 3.7 L out Medications and IVs Current Medications Medications (Trade) Dose Ordered Sig/Virgil Route Start Time Stop Time Status Last Admin (NS Flush) 2 ml UNSCH PRN IV FLUSH 11/30/17 17:30 12/03/17 13:52 (NS Flush) 2 ml BID IV FLUSH 11/30/17 21:00 12/03/17 09:00 (Narcan Inj) 0.4 mg UNSCH PRN IV PUSH 11/30/17 17:30 Metronidazole 100 ml @ 100 mls/hr Q6H IV 12/01/17 00:00 12/07/17 11:50 Ceftriaxone Sodium 1000 mg/ Sodium Chloride 100 ml @ 200 mls/hr Q24H IV 12/01/17 17:00 12/06/17 18:35 (Xifaxan) 550 mg BID PO 11/30/17 21:00 12/07/17 09:57 (Lactulose Liq) 30 ml TID PO 12/01/17 09:00 12/07/17 11:49 (Protonix) 40 mg DAILY PO 12/02/17 09:00 12/07/17 09:57 (Roxicodone) 5 mg Q4H PRN PO 12/01/17 18:15 12/07/17 11:49 (Mephyton Liq) 5 mg DAILY PO 12/02/17 09:00 12/07/17 10:00 (KCl) 20 meq BID PO 12/03/17 21:00 12/07/17 09:57 Sodium Bicarbonate 75 meq/Sodium Chloride 1,075 ml @ 100 mls/hr [id number] IV 12/04/17 17:00 12/06/17 18:35 (Proamatine) 7.5 mg TID@07,12,17 PO 12/04/17 17:00 12/07/17 11:49 (Atarax) 50 mg Q6H PRN PO 12/05/17 19:30 12/07/17 12:02 (Questran 4 Gm Pkt) 4 gm TIDAC PO 12/05/17 17:00 12/07/17 11:50 (TRENtal SR) 400 mg Q8H PO 12/06/17 08:00 12/07/17 09:57 Albumin Human 100 ml @ 60 mls/hr Q8H IV 12/06/17 08:00 12/07/17 09:56 (SandoSTATIN INJ) 200 mcg Q8H SQ 12/06/17 08:00 12/07/17 09:59 (Librium) 10 mg DAILY PO 12/07/17 09:00 12/07/17 09:57 Sodium Phosphate 15 mmol/Sodium Chloride 155 ml @ 38.75 mls/ hr ONCE ONCE IV 12/07/17 10:00 12/07/17 13:59 A/P Assessment and Plan Alcoholic liver cirrhosis with ascites S/P Paracentesis- 3 - 4L , again 12/02- 3.7 L. - hold diuretics- with worsening renal functions. - trend LFTs. - continue Librium- decrease to 10 mg daily 12/06 and wean off. - GI following. - monitor, may need repeat paracentesis. Acute on CKI Worsening renal functions- possibly hepatorenal syndrome. Nephrology consult appreciated. Creatinine improving. - Hold Aldactone. - close monitoring of BMP and avoid nephrotoxins. - Nephrology following. - continue IVF HC03 - + IV albumin- per nephrology. Hypokalemia/ Hypophosphatemia Chronic. - on 20 meq po bid. - na phos IV. Leukocytosis Possible SBP No growth in cultures. - continue on IV Flagyl and ceftriaxone. - ID service following. - recheck CBC in am. Improving. Hepatic encephalopathy Not improving. - continue Lactulose, make QID. - wean off Librium. Pruritus Due to Liver disease. - on Atarax as needed. - trial of cholestyramine- seemed to help. PPx: Edin Blanton DO Dec 07, 2017 12:19
[2017-12-07 14:29] LABS: DIRECT BILIRUBIN ADULT 17.8 MG/DL (0.0-0.2); INDIRECT BILIRUBIN 6.9 MG/DL (0.0-0.8); TOTAL BILIRUBIN ADULT 24.7 MG/DL (0.2-1.0); TOTAL PROTEIN 5.6 GM/DL (6.4-8.2)
--- NOTE | 2017-12-07 14:29 | HHI.GIFU ---
Subjective Remarks Resting in the bed, drowsy responding with 1 word answers Positive icteric skin and sclera Afebrile (Lise Boland) Objective Vitals I&O Vital Signs Date Time Temp Pulse Resp B/P (MAP) Pulse Ox O2 Delivery O2 Flow Rate FiO2 12/07/17 12:00 96.7 93 19 124/69 (87) 99 12/07/17 08:00 96.7 96 19 129/75 (93) 99 12/07/17 04:06 96.7 98 20 126/62 (83) 97 12/07/17 00:00 95.4 108 20 140/78 (98) 98 12/06/17 20:00 96.4 90 18 125/72 (89) 95 12/06/17 16:00 97.5 82 16 129/70 (89) 97 I/O 12/06/17 12/06/17 12/06/17 12/07/17 12/07/17 12/07/17 07:00 15:00 23:00 07:00 15:00 23:00 Intake Total 200 ml 100 ml 1460 ml 240 ml Output Total 400 ml Balance 200 ml 100 ml 1060 ml 240 ml Intake Oral 720 ml 240 ml IV Total 200 ml 100 ml 740 ml Output Urine Total 400 ml # Voids 3 2 3 # Bowel Movements 0 0 0 Laboratory Laboratory Tests Test 12/07/17 07:28 White Blood Count 31.7 Red Blood Count 3.13 Hemoglobin 11.2 Hematocrit 32.3 Mean Corpuscular Volume 103.4 Mean Corpuscular Hemoglobin 35.7 Mean Corpuscular Hemoglobin Concent 34.5 Red Cell Distribution Width 15.7 Platelet Count 106 Mean Platelet Volume 8.0 Blood Urea Nitrogen 32 Creatinine 1.70 Random Glucose 111 Albumin 2.5 Calcium Level 8.2 Phosphorus Level 1.6 Sodium Level 134 Potassium Level 3.1 Chloride Level 106 Carbon Dioxide Level 16.1 Anion Gap 12 Estimat Glomerular Filtration Rate 45 Lipase 387 Date/Time Source Procedure Growth Status 11/30/17 17:58 Blood Line Aerobic Blood Culture - Final NO GROWTH IN 5 DAYS Complete 11/30/17 17:58 Blood Line Anaerobic Blood Culture - Final NO GROWTH IN 5 DAYS Complete 12/02/17 11:40 Fluid Peritoneal Fluid Gram Stain - Final Complete 12/02/17 11:40 Fluid Peritoneal Fluid Body Fluid Culture - Final NO GROWTH IN 72 HRS.--AEROBICALLY OR ... Complete Imaging Last Impressions Renal Ultrasound 12/03/17 0000 Signed Impressions: Service Date/Time: Sunday, December 03, 2017 15:27 - CONCLUSION: Kidneys are somewhat prominent in size but otherwise within normal limits. No focal mass or hydronephrosis identified. Felipe Luo MD Cyst Biopsy Asp-Paracentesis US 12/02/17 0000 Signed Impressions: Service Date/Time: Saturday, December 02, 2017 11:37 - CONCLUSION: Uncomplicated ultrasound guided paracentesis. Julian Brantley MD Chest X-Ray 11/30/17 0000 Signed Impressions: Service Date/Time: Thursday, November 30, 2017 17:13 - CONCLUSION: No acute disease. Braden Akers Jr., MD Physical Exam HEENT: Normocephalic; atraumatic; + jaundice. Small multiple abrasions/sores facial area as well as extremities CHEST: Even/unlabored no obvious shortness of breath CARDIAC: RRR ABDOMEN: Semifirm, large, obese, Distended, soft, bowel sounds active EXTREMITIES: BLE 3+ edema SKIN: Multiple wounds generalized over body from cigarette cuellar and excoriations from scratching. (+) jaundice (Lise Boland) Assessment and Plan Plan Assessment - Alcohol hepatitis- Current labs- AST-62 ALT-49 Alk phos-292 T bili-23.7 DF-52. Pt was recently admitted, left AMA, returned after 19 hours of being home. Reports one bloody while home, however mother at bedside thinks this is unlikely. - Cirrhosis- MELD-27. Previous liver work up as follows: Hepatitis panel negative, celiac panel negative, FINA negative, AMA borderline elevated, ASMA positive but low titer, Alpha 1 antitrypsin not elevated, Ceruloplasmin slightly elevated, Ferritin-708. Platelets WNL. Albumin 1.6 - Ascites- Paracentesis was last done on November 25 with 4,400 cc of clear, yellow fluid removed, fluid culture negative. SAAG-1.5 consistent with portal HTN as cause of ascites. Pt complaining of worsening abdominal distention. - Pancreatitis- elevated lipase-956 - Coagulopathy- INR 1.8 - Leukocytosis- WBC 34.3. ID following. Afebrile. On Rocephin and Flagyl - ELKIN- GFR-49 decreased since last admission CT abdomen and pelvis W contrast (11/24) --> Moderate amount of ascites. Hepatomegaly. 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 12/02/17 paracentesis noted 12/03/17 LFTs, wbc remain high, s/p paracentesis on 12/02 with 3700 ml output labs pending Diuretics on hold due to worsening kidney function (12/05) --> Per pts mother has been complaining about generalized abdominal pain and nausea, states has been very irritable. Remains off of diuretics due to decreased renal function. T bili remains elevated, would benefit from steroids, need clearance from ID given leukocytosis. Peritoneal fluid negative, no SBP. Ammonia WNL. Lipase trending down. INR 1.8- vit K. (12/06) No significant events over night. Pt denies nausea, vomiting. Continued abdominal pain. (+) BM today. Increase in WBCs noted. No repeat renal function from today. Remains on Pentoxifylline, Albumin, Octreotide gtt, Protonix, Lactulose, Xifaxan. 12/07/17, patient appears drowsy comfortable in bed. Minimal communication or response gives basic one-word answers. WBC count 31.7 which is declining Anemia hemoglobin 11.2, no obvious bleed, labs today are pending. No BM noted today , 1 noted on 12/06/17 Plan: - Low salt diet , encourage by mouth intake -Continue to hold Aldactone for now, mild improvement in creatinine, BUN - Cont. Lactulose - Cont. Pentoxifylline - Cont. Rifaximin - Cont Protonix - cont. Ceftriaxone and Flagyl - Will hold Spironolactone due to worsening kidney function - Vitamin K - Continue octreotide drip - Receiving IV albumin - ETOH cessation although papers patient does not appear to want to discuss - Supportive care, slow minimal progressive recovery. Further recommendations to follow based on clinical course Pt has been seen and examined by myself and Dr. Patel and this note is written on his behalf (Lise Boland) Physician Comments Agree with above assessment and plan. Will follow up with you. (Arely Patel MD) Lise Boland Dec 07, 2017 14:29 Arely Patel MD Dec 07, 2017 15:21
[2017-12-07 15:58] LABS: INTERNATIONAL NORMALIZED RATIO 1.8 RATIO; PROTHROMBIN TIME - PATIENT 18.4 SEC (9.8-11.6)
[2017-12-07 16:00] VITALS: BP 138/78; PULSE 104; RESP 19; TEMP 96.5; O2SAT 98
[2017-12-07] MEDS: cefTRIAXone INJ 1,000 MG in SODIUM CHLORIDE 0.9% INJ 100 ML IV SCH (17:14)
[2017-12-07 18:11] LABS: ALBUMIN 2.5 GM/DL (3.4-5.0)
[2017-12-07] MEDS ORDERED: POTASSIUM PHOSPHATE/SODIUM PHOSPHATE 250 MG TAB PO ONE (18:15)
--- NOTE | 2017-12-07 18:15 | HHI.NPPN ---
Subjective Renal Failure: Acute History of Present Illness The patient is a 37 yo [place] male who presented to this facility with complaints of abdominal pain, malaise, and jaundice. He has had 3 admissions to this facility in the past month with the last between 11/24 and 11/29 where he signed out AMA. Was recently diagnosed with liver cirrhosis, but unfortunately continued to drink at home. Mother and aunt present in the room---mother lives in [place] and says that he has "never been sick". He apparently has been drinking heavily since he was a teenager. Otherwise, denies any PMHx. He is a poor historian as he is lethargic. We were consulted as his renal functions have started to deteriorate. His SCr at time of consult is 1.91 rising from 1.59 12/02 and admitting SCr of 1.34. He was 1.19 at his sign out on 11/29, 1.02 on 11/24, 0.4-0.31 Oct 2017. Interval History No new complaints. Patient seems slightly agitated. Review of Systems General Constitutional: Fatigue Respiratory Lungs: SOB Gastrointestinal Gastrointestinal: Nausea & Vomiting, Diarrhea Objective Data Data Vital Signs Date Time Temp Pulse Resp B/P (MAP) Pulse Ox O2 Delivery O2 Flow Rate FiO2 12/07/17 16:00 96.5 104 19 138/78 (98) 98 12/07/17 12:00 96.7 93 19 124/69 (87) 99 12/07/17 08:00 96.7 96 19 129/75 (93) 99 12/07/17 04:06 96.7 98 20 126/62 (83) 97 12/07/17 00:00 95.4 108 20 140/78 (98) 98 12/06/17 20:00 96.4 90 18 125/72 (89) 95 -: 12/07/17 0728 12/07/17 0728 Physical Exam General Appearance: No Acute Distress, Comfortable Eyes Eye Exam: Jaundice Neck Neck Exam: Trachea Midline Pulmonary Resp Exam: Clear Bilaterally, Breath Sounds Equal Cardiology CV Exam: Regular, Normal Sinus Rhythm Gastrointestinal/Abdomen GI Exam: Distended Integumentary Skin Exam: Jaundice (patient very icteric clinically.) Extremeties Extremities Exam: Moderate Edema (ankles and lower legs.) Neurologic Neuro Exam: Awake Assessment/Plan Discussed Condition With: Patient, Parent Problem List: (1) Hepatorenal syndrome ICD Codes: K76.7 - Hepatorenal syndrome Plan: Patient's creatinine level is improving albeit slowly however still very concerned regarding his hepatic status and long-term prognosis. Discontinue IV fluids at this point in time as the patient appears to be developing increasing lower extremity edema. We will however continue albumin at a lower dosage together with midodrine as well as somatostatin.. Hopefully the patient's renal function will improve however if his azotemia continues to worsen at some point renal replacement therapy may have to be considered. Should be noted however study indicated a mortality of patient's with hepatorenal syndrome who were not transplant candidates at 6 months was 84 % with a median survival of 21 days. I discussed with the patient and his mother that generally dialysis is indicated in the setting of hepatorenal syndrome and if the patient is a liver transplant candidate which unfortunately does not appear to be the case currently. If they do opt for dialysis with no improvement in his renal function they were advised that his prognosis would most likely be very poor on dialysis as the underlying issue here is hepatic dysfunction. (2) Acute renal insufficiency ICD Codes: N28.9 - Disorder of kidney and ureter, unspecified Plan: Secondary to the above. (3) Cirrhosis with alcoholism ICD Codes: K70.30 - Alcoholic cirrhosis of liver without ascites Status: Acute Plan: Not a transplant candidate due to ongoing EtOH abuse Abdomen distended today. Will defer to GI if paracentesis needs performed. (4) Hypokalemia ICD Codes: E87.6 - Hypokalemia Plan: Repletion ordered (5) Acidosis ICD Codes: E87.2 - Acidosis Plan: Convert sodium bicarbonate to oral supplementation. (6) Ascites ICD Codes: R18.8 - Other ascites (7) Hypoalbuminemia ICD Codes: E88.09 - Other disorders of plasma-protein metabolism, not elsewhere classified Plan: Related to liver disease (8) Leukocytosis ICD Codes: D72.829 - Elevated white blood cell count, unspecified Plan: Peritoneal fluid from 12/02 culture pending. Noted increased in peritoneal WBC count. Management as per ID Problem Qualifiers (1) Cirrhosis with alcoholism: Qualified Codes: K70.31 - Alcoholic cirrhosis of liver with ascites Daljit Coronado MD Dec 07, 2017 18:15
[2017-12-07 20:00] VITALS: BP 131/85; PULSE 98; RESP 20; TEMP 96.8; O2SAT 100
[2017-12-07] MEDS: methylPREDNISolone SOD SUCC 125 MG/2 ML VIAL IV PUSH SCH (21:00)
[2017-12-07] MEDS: ALBUMIN 25% INJ 50 ML IV SCH (22:00)
[2017-12-07] MEDS: SODIUM BICARBONATE 650 MG TAB PO SCH (22:35)
[2017-12-08] VITALS: BP 125/81; PULSE 95; PULSE 98; RESP 20; TEMP 96.4; O2SAT 97
[2017-12-08] MEDS: OCTREOTIDE INJ 100 MCG/ML VIAL SQ SCH ×3 (00:50→16:44)
[2017-12-08] MEDS: PENTOXIFYLLINE 400 MG CONTROLLED RELEASE TAB PO SCH ×3 (00:51→16:44)
[2017-12-08] MEDS: metroNIDAZOLE 500 MG INJ 100 ML IV SCH ×3 (00:52→11:20)
[2017-12-08] MEDS: hydrOXYzine HCL 25 MG TAB PO PRN ×2 (01:31→21:39)
[2017-12-08 04:00] VITALS: BP_SYST 122; BP_SYST 126; BP_DIAS 64; BP_DIAS 76; PULSE 102; PULSE 62; PULSE 98; RESP 16; RESP 20; TEMP 96.2; TEMP 96.9; O2SAT 95; O2SAT 99
[2017-12-08] MEDS: SODIUM BICARBONATE 650 MG TAB PO SCH ×3 (06:08→21:19)
[2017-12-08] MEDS: MIDODRINE 5 MG TAB PO SCH ×3 (06:08→16:44)
[2017-12-08] MEDS: ALBUMIN 25% INJ 50 ML IV SCH ×3 (06:10→21:20)
[2017-12-08 07:09] LABS: INTERNATIONAL NORMALIZED RATIO 1.9 RATIO; PROTHROMBIN TIME - PATIENT 19.2 SEC (9.8-11.6)
[2017-12-08 07:41] LABS: HEMATOCRIT 33.7 % (39.0-51.0); HEMOGLOBIN 11.6 GM/DL (13.0-17.0); MEAN CELL VOLUME 103.1 FL (80.0-100.0); MEAN CORPUSCULAR HEMOGLOBIN 35.7 PG (27.0-34.0); MEAN CORPUSCULAR HGB CONC 34.6 % (32.0-36.0); MEAN PLATELET VOLUME 7.6 FL (7.0-11.0); PLATELET COUNT 107 TH/MM3 (150-450); RED BLOOD COUNT 3.26 MIL/MM3 (4.50-5.90); RED CELL DISTRIBUTION WIDTH 16.2 % (11.6-17.2)
[2017-12-08] MEDS: PANTOPRAZOLE SOD 40 MG DELAYED RELEASE TAB PO SCH (07:50)
[2017-12-08] MEDS: RIFAXIMIN 550 MG TAB PO SCH ×2 (07:51→21:19)
[2017-12-08] MEDS: LACTULOSE SYRUP 20 GM/30 ML CUP PO SCH ×4 (07:51→21:00)
[2017-12-08] MEDS: PHYTONADIONE 5 MG/SWFI 5 ML ORAL SYR PO SCH (07:51)
[2017-12-08] MEDS: methylPREDNISolone SOD SUCC 125 MG/2 ML VIAL IV PUSH SCH ×2 (07:51→21:19)
[2017-12-08] MEDS: CHOLESTYRAMINE 4 GM PACKET PO SCH ×3 (07:51→16:43)
[2017-12-08] MEDS: POTASSIUM CHLORIDE 10 MEQ CAP PO SCH ×2 (07:51→21:19)
[2017-12-08] MEDS: SODIUM CHLORIDE 0.9% FLUSH 10 ML FLUSH IV FLUSH SCH ×2 (07:52→21:20)
[2017-12-08 07:55] LABS: ALBUMIN 2.9 GM/DL (3.4-5.0); BICARBONATE 16.7 MEQ/L (21.0-32.0); CALCIUM 8.3 MG/DL (8.5-10.1); CREATININE 1.6 MG/DL (0.60-1.30); DIRECT BILIRUBIN ADULT 21.8 MG/DL (0.0-0.2); INDIRECT BILIRUBIN 6.4 MG/DL (0.0-0.8); MAGNESIUM 2.1 MG/DL (1.5-2.5); PHOSPHORUS 1.2 MG/DL (2.5-4.9)
[2017-12-08 08:00] VITALS: BP 123/72; PULSE 88; RESP 20; TEMP 96.9; O2SAT 97
[2017-12-08 08:04] LABS: TOTAL BILIRUBIN ADULT 28.2 MG/DL (0.2-1.0)
[2017-12-08 08:05] LABS: TOTAL PROTEIN 5.7 GM/DL (6.4-8.2)
[2017-12-08] MEDS ORDERED: methylPREDNISolone SOD SUCC 125 MG/2 ML VIAL IM SCH (09:00)
[2017-12-08 12:00] VITALS: BP 129/75; PULSE 87; RESP 20; TEMP 96.9; O2SAT 98
[2017-12-08] MEDS ORDERED: POTASSIUM CHLORIDE 25 MEQ EFFERVESCENT TAB PO ONE (15:00)
--- NOTE | 2017-12-08 15:10 | HHI.PR ---
Subjective Remarks The pt was sitting up in bed. His family was at the bedside. The pt rated his pain as a 6/10. Discussed with family, who had questions regarding prognosis and disposition. Discussed with nursing. Objective Vitals Vital Signs Date Time Temp Pulse Resp B/P (MAP) Pulse Ox O2 Delivery O2 Flow Rate FiO2 12/08/17 12:00 96.9 87 20 129/75 (93) 98 12/08/17 08:00 96.9 88 20 123/72 (89) 97 12/08/17 04:00 98 12/08/17 04:00 96.2 102 20 126/76 (93) 99 12/08/17 00:00 96.4 98 20 125/81 (96) 97 12/08/17 00:00 95 12/07/17 20:00 96.8 98 20 131/85 (100) 100 12/07/17 16:00 96.5 104 19 138/78 (98) 98 I/O 12/07/17 12/07/17 12/07/17 12/08/17 12/08/17 12/08/17 07:00 15:00 23:00 07:00 15:00 23:00 Intake Total 240 ml 200 ml 1260 ml 100 ml 360 ml Balance 240 ml 200 ml 1260 ml 100 ml 360 ml Intake Oral 240 ml 960 ml 360 ml IV Total 200 ml 300 ml 100 ml # Voids 3 4 2 # Bowel Movements 0 1 Result Diagram: 12/08/17 0632 12/08/17 0632 Imaging Last Impressions Renal Ultrasound 12/03/17 0000 Signed Impressions: Service Date/Time: Sunday, December 03, 2017 15:27 - CONCLUSION: Kidneys are somewhat prominent in size but otherwise within normal limits. No focal mass or hydronephrosis identified. Felipe Luo MD Cyst Biopsy Asp-Paracentesis US 12/02/17 0000 Signed Impressions: Service Date/Time: Saturday, December 02, 2017 11:37 - CONCLUSION: Uncomplicated ultrasound guided paracentesis. Julian Brantley MD Chest X-Ray 11/30/17 0000 Signed Impressions: Service Date/Time: Thursday, November 30, 2017 17:13 - CONCLUSION: No acute disease. Braden Akers Jr., MD Objective Remarks Gen: No distress. Skin: Jaundice noted. HEENT: Marked icterus. Lungs: no rales, no wheezes. Heart: Regular rate and rhythm. GI: distended but soft, bandage in place. Extremities: 1-2+ LE edema. Neuro: slow speech. Psych: Flat affect. Procedures 12/02- paracentesis 3.7 L out Medications and IVs Current Medications Medications (Trade) Dose Ordered Sig/Virgil Route Start Time Stop Time Status Last Admin (NS Flush) 2 ml UNSCH PRN IV FLUSH 11/30/17 17:30 12/03/17 13:52 (NS Flush) 2 ml BID IV FLUSH 11/30/17 21:00 12/08/17 07:52 (Narcan Inj) 0.4 mg UNSCH PRN IV PUSH 11/30/17 17:30 Metronidazole 100 ml @ 100 mls/hr Q6H IV 12/01/17 00:00 12/08/17 11:20 Ceftriaxone Sodium 1000 mg/ Sodium Chloride 100 ml @ 200 mls/hr Q24H IV 12/01/17 17:00 12/07/17 17:14 (Xifaxan) 550 mg BID PO 11/30/17 21:00 12/08/17 07:51 (Protonix) 40 mg DAILY PO 12/02/17 09:00 12/08/17 07:50 (Roxicodone) 5 mg Q4H PRN PO 12/01/17 18:15 12/08/17 11:20 (Mephyton Liq) 5 mg DAILY PO 12/02/17 09:00 12/08/17 07:51 (KCl) 20 meq BID PO 12/03/17 21:00 12/08/17 07:51 (Proamatine) 7.5 mg TID@07,12,17 PO 12/04/17 17:00 12/08/17 11:20 (Atarax) 50 mg Q6H PRN PO 12/05/17 19:30 12/08/17 01:31 (Questran 4 Gm Pkt) 4 gm TIDAC PO 12/05/17 17:00 12/08/17 10:56 (TRENtal SR) 400 mg Q8H PO 12/06/17 08:00 12/08/17 07:50 (SandoSTATIN INJ) 200 mcg Q8H SQ 12/06/17 08:00 12/08/17 07:51 (Librium) 10 mg DAILY PO 12/07/17 09:00 12/08/17 07:51 (Lactulose Liq) 30 ml QID PO 12/07/17 13:00 12/08/17 11:20 (SoluMEDROL INJ) 60 mg Q12HR IV PUSH 12/07/17 21:00 12/08/17 07:51 Albumin Human 50 ml @ 60 mls/hr Q8HR IV 12/07/17 22:00 12/08/17 13:44 (Sodium Bicarbonate) 650 mg Q8HR PO 12/07/17 22:00 12/08/17 13:44 (K-Lyte Cl Eff) 25 meq ONCE ONCE PO 12/08/17 15:00 12/08/17 15:01 UNV Sodium Phosphate 30 mmol/Sodium Chloride 260 ml @ 43.333 mls/ hr ONCE ONCE IV 12/08/17 15:00 12/08/17 20:59 UNV A/P Assessment and Plan Alcoholic liver cirrhosis with ascites S/p paracentesis- 11/25 - 4L , again 12/02- 3.7 L. - hold diuretics- with worsening renal functions. - trend LFTs. - d/c Librium. - GI following. Solumedrol added. - monitor, may need repeat paracentesis. - palliative following, appreciate assistance. Acute on CKI Worsening renal functions- possibly hepatorenal syndrome. Nephrology consult appreciated. Creatinine improving. - Hold Aldactone. - close monitoring of BMP and avoid nephrotoxins. - Nephrology following. - continue IVF HC03 - + IV albumin- per nephrology. Hypokalemia/ Hypophosphatemia Chronic. - on 20 meq po bid. - na phos IV. Leukocytosis Possible SBP No growth in cultures. Worse on steroids. - continue on IV Flagyl and ceftriaxone. - ID service following. Hepatic encephalopathy Not improving. - continue Lactulose, make QID. - d/c Librium. Pruritus Due to Liver disease. - on Atarax as needed. - trial of cholestyramine- seemed to help. PPx: Edin Blanton DO Dec 08, 2017 15:10
--- NOTE | 2017-12-08 15:19 | HHI.NPPN ---
Subjective Renal Failure: Acute History of Present Illness The patient is a 37 yo [place] male who presented to this facility with complaints of abdominal pain, malaise, and jaundice. He has had 3 admissions to this facility in the past month with the last between 11/24 and 11/29 where he signed out AMA. Was recently diagnosed with liver cirrhosis, but unfortunately continued to drink at home. Mother and aunt present in the room---mother lives in [place] and says that he has "never been sick". He apparently has been drinking heavily since he was a teenager. Otherwise, denies any PMHx. He is a poor historian as he is lethargic. We were consulted as his renal functions have started to deteriorate. His SCr at time of consult is 1.91 rising from 1.59 12/02 and admitting SCr of 1.34. He was 1.19 at his sign out on 11/29, 1.02 on 11/24, 0.4-0.31 Oct 2017. Interval History Patient with no new verbal complaints. Family by bedside including mother. Review of Systems General Constitutional: Fatigue Respiratory Lungs: SOB Gastrointestinal Gastrointestinal: Nausea & Vomiting, Diarrhea Objective Data Data 12/08/17 12/09/17 19:00 07:00 Intake Total 360 ml Balance 360 ml Intake Oral 360 ml Vital Signs Date Time Temp Pulse Resp B/P (MAP) Pulse Ox O2 Delivery O2 Flow Rate FiO2 12/08/17 12:00 96.9 87 20 129/75 (93) 98 12/08/17 08:00 96.9 88 20 123/72 (89) 97 12/08/17 04:00 98 12/08/17 04:00 96.2 102 20 126/76 (93) 99 12/08/17 00:00 96.4 98 20 125/81 (96) 97 12/08/17 00:00 95 12/07/17 20:00 96.8 98 20 131/85 (100) 100 12/07/17 16:00 96.5 104 19 138/78 (98) 98 -: 12/08/17 0632 12/08/17 0632 Physical Exam General Appearance: No Acute Distress, Comfortable Eyes Eye Exam: Jaundice Neck Neck Exam: Trachea Midline Pulmonary Resp Exam: Clear Bilaterally, Breath Sounds Equal Cardiology CV Exam: Regular, Normal Sinus Rhythm Gastrointestinal/Abdomen GI Exam: Distended Integumentary Skin Exam: Jaundice (patient very icteric clinically.) Extremeties Extremities Exam: Moderate Edema (ankles and lower legs.) Neurologic Neuro Exam: Awake Assessment/Plan Discussed Condition With: Patient, Parent Problem List: (1) Hepatorenal syndrome ICD Codes: K76.7 - Hepatorenal syndrome Plan: Patient's creatinine level is improving albeit slowly however I am still very concerned regarding his hepatic status and long-term prognosis. We will however continue albumin at a lower dosage together with midodrine as well as somatostatin.. I again advised the family and the patient that should he leave the hospital and resume alcohol consumption again I believe his prognosis will be very poor and likely his renal function will deteriorate acutely with probable poor chance for recovery. Hopefully the patient's renal function will improve however if his azotemia continues to worsen at some point renal replacement therapy may have to be considered. Should be noted however study indicated a mortality of patient's with hepatorenal syndrome who were not transplant candidates at 6 months was 84 % with a median survival of 21 days. I discussed with the patient and his mother that generally dialysis is indicated in the setting of hepatorenal syndrome and if the patient is a liver transplant candidate which unfortunately does not appear to be the case currently. If they do opt for dialysis with no improvement in his renal function they were advised that his prognosis would most likely be very poor on dialysis as the underlying issue here is hepatic dysfunction. (2) Acute renal insufficiency ICD Codes: N28.9 - Disorder of kidney and ureter, unspecified Plan: Secondary to the above. (3) Cirrhosis with alcoholism ICD Codes: K70.30 - Alcoholic cirrhosis of liver without ascites Status: Acute Plan: Not a transplant candidate due to ongoing EtOH abuse Abdomen distended today. Will defer to GI if paracentesis needs performed. (4) Hypokalemia ICD Codes: E87.6 - Hypokalemia Plan: Repletion ordered (5) Acidosis ICD Codes: E87.2 - Acidosis Plan: Convert sodium bicarbonate to oral supplementation. (6) Ascites ICD Codes: R18.8 - Other ascites (7) Hypoalbuminemia ICD Codes: E88.09 - Other disorders of plasma-protein metabolism, not elsewhere classified Plan: Related to liver disease (8) Leukocytosis ICD Codes: D72.829 - Elevated white blood cell count, unspecified Plan: Peritoneal fluid from 12/02 culture pending. Noted increased in peritoneal WBC count. Management as per ID Plan The exam, history, and the medical decision-making described in the above note were completed with the assistance of the KEO. I reviewed and agree with the findings presented. Problem Qualifiers (1) Cirrhosis with alcoholism: Qualified Codes: K70.31 - Alcoholic cirrhosis of liver with ascites Daljit Coronado MD Dec 08, 2017 15:19
--- NOTE | 2017-12-08 15:39 | HHI.IDPN ---
Note Infectious Disease Note Patient notes continued abdominal pain. No fever or chills. He is awake and alert. No visible drainage at the right lower abdomen after removing the current dressing. WBC remained elevated. ID consult requested for elevated white blood cell count. PAST MEDICAL HISTORY: 1. Liver cirrhosis newly diagnosed secondary to alcohol. 2. Alcohol abuse. 3. History of asthma. ALLERGIES: NO KNOWN DRUG ALLERGIES. MEDICATIONS: Current Medications Medications (Trade) Dose Ordered Sig/Virgil Route PRN Reason Start Time Stop Time Status Last Admin Dose Admin Sodium Chloride (NS Flush) 2 ml UNSCH PRN IV FLUSH FLUSH AFTER USING IV ACCESS 11/30/17 17:30 12/03/17 13:52 Sodium Chloride (NS Flush) 2 ml BID IV FLUSH 11/30/17 21:00 12/08/17 07:52 Naloxone HCl (Narcan Inj) 0.4 mg UNSCH PRN IV PUSH SEE LABEL COMMENTS 11/30/17 17:30 Metronidazole 100 ml @ 100 mls/hr Q6H IV 12/01/17 00:00 12/08/17 11:20 Ceftriaxone Sodium 1000 mg/ Sodium Chloride 100 ml @ 200 mls/hr Q24H IV 12/01/17 17:00 12/07/17 17:14 Rifaximin (Xifaxan) 550 mg BID PO 11/30/17 21:00 12/08/17 07:51 Pantoprazole Sodium (Protonix) 40 mg DAILY PO 12/02/17 09:00 12/08/17 07:50 Oxycodone HCl (Roxicodone) 5 mg Q4H PRN PO PAIN SCALE 4 TO 10 12/01/17 18:15 12/08/17 11:20 Phytonadione (Mephyton Liq) 5 mg DAILY PO 12/02/17 09:00 12/08/17 07:51 Potassium Chloride (KCl) 20 meq BID PO 12/03/17 21:00 12/08/17 07:51 Midodrine (Proamatine) 7.5 mg TID@07,12,17 PO 12/04/17 17:00 12/08/17 11:20 Hydroxyzine HCl (Atarax) 50 mg Q6H PRN PO itching 12/05/17 19:30 12/08/17 01:31 Cholestyramine Resin (Questran 4 Gm Pkt) 4 gm TIDAC PO 12/05/17 17:00 12/08/17 10:56 Pentoxifylline (TRENtal SR) 400 mg Q8H PO 12/06/17 08:00 12/08/17 07:50 Octreotide Acetate (SandoSTATIN INJ) 200 mcg Q8H SQ 12/06/17 08:00 12/08/17 07:51 Lactulose (Lactulose Liq) 30 ml QID PO 12/07/17 13:00 12/08/17 11:20 Methylprednisolone Sodium Succinate (SoluMEDROL INJ) 60 mg Q12HR IV PUSH 12/07/17 21:00 12/08/17 07:51 Albumin Human 50 ml @ 60 mls/hr Q8HR IV 12/07/17 22:00 12/08/17 13:44 Sodium Bicarbonate (Sodium Bicarbonate) 650 mg Q8HR PO 12/07/17 22:00 12/08/17 13:44 Sodium Phosphate 30 mmol/Sodium Chloride 260 ml @ 43.333 mls/ hr ONCE ONCE IV 12/08/17 16:00 12/08/17 21:59 SOCIAL HISTORY: The patient drinks alcohol in the form of beers daily. He smokes a 1/4 pack of cigarettes a day. Positive marijuana use. OBJECTIVE: Laboratory Tests Test 12/07/17 07:28 12/08/17 06:32 White Blood Count 31.7 TH/MM3 34.0 TH/MM3 Red Blood Count 3.13 MIL/MM3 3.26 MIL/MM3 Hemoglobin 11.2 GM/DL 11.6 GM/DL Hematocrit 32.3 % 33.7 % Mean Corpuscular Volume 103.4 FL 103.1 FL Mean Corpuscular Hemoglobin 35.7 PG 35.7 PG Mean Corpuscular Hemoglobin Concent 34.5 % 34.6 % Red Cell Distribution Width 15.7 % 16.2 % Platelet Count 106 TH/MM3 107 TH/MM3 Mean Platelet Volume 8.0 FL 7.6 FL Laboratory Tests Test 12/07/17 07:28 12/08/17 06:32 White Blood Count 31.7 TH/MM3 34.0 TH/MM3 Red Blood Count 3.13 MIL/MM3 3.26 MIL/MM3 Hemoglobin 11.2 GM/DL 11.6 GM/DL Hematocrit 32.3 % 33.7 % Mean Corpuscular Volume 103.4 FL 103.1 FL Mean Corpuscular Hemoglobin 35.7 PG 35.7 PG Mean Corpuscular Hemoglobin Concent 34.5 % 34.6 % Red Cell Distribution Width 15.7 % 16.2 % Platelet Count 106 TH/MM3 107 TH/MM3 Mean Platelet Volume 8.0 FL 7.6 FL Laboratory Tests Test 12/07/17 07:28 12/08/17 06:32 Blood Urea Nitrogen 32 MG/DL 29 MG/DL Creatinine 1.70 MG/DL 1.60 MG/DL Random Glucose 111 MG/DL 127 MG/DL Albumin 2.5 GM/DL 2.9 GM/DL Calcium Level 8.2 MG/DL 8.3 MG/DL Phosphorus Level 1.6 MG/DL 1.2 MG/DL Sodium Level 134 MEQ/L 138 MEQ/L Potassium Level 3.1 MEQ/L 3.4 MEQ/L Chloride Level 106 MEQ/L 109 MEQ/L Carbon Dioxide Level 16.1 MEQ/L 16.7 MEQ/L Anion Gap 12 MEQ/L 12 MEQ/L Estimat Glomerular Filtration Rate 45 ML/MIN 48 ML/MIN Total Bilirubin 24.7 MG/DL 28.2 MG/DL Direct Bilirubin 17.8 MG/DL 21.8 MG/DL Indirect Bilirubin 6.9 MG/DL 6.4 MG/DL Aspartate Amino Transf (AST/SGOT) 61 U/L 52 U/L Alanine Aminotransferase (ALT/SGPT) 31 U/L 32 U/L Alkaline Phosphatase 184 U/L 181 U/L Total Protein 5.6 GM/DL 5.7 GM/DL Lipase 387 U/L Magnesium Level 2.1 MG/DL Ammonia 57 MCMOL/L Laboratory Tests Test 12/07/17 07:28 12/08/17 06:32 Blood Urea Nitrogen 32 MG/DL 29 MG/DL Creatinine 1.70 MG/DL 1.60 MG/DL Random Glucose 111 MG/DL 127 MG/DL Albumin 2.5 GM/DL 2.9 GM/DL Calcium Level 8.2 MG/DL 8.3 MG/DL Phosphorus Level 1.6 MG/DL 1.2 MG/DL Sodium Level 134 MEQ/L 138 MEQ/L Potassium Level 3.1 MEQ/L 3.4 MEQ/L Chloride Level 106 MEQ/L 109 MEQ/L Carbon Dioxide Level 16.1 MEQ/L 16.7 MEQ/L Anion Gap 12 MEQ/L 12 MEQ/L Estimat Glomerular Filtration Rate 45 ML/MIN 48 ML/MIN Total Bilirubin 24.7 MG/DL 28.2 MG/DL Direct Bilirubin 17.8 MG/DL 21.8 MG/DL Indirect Bilirubin 6.9 MG/DL 6.4 MG/DL Aspartate Amino Transf (AST/SGOT) 61 U/L 52 U/L Alanine Aminotransferase (ALT/SGPT) 31 U/L 32 U/L Alkaline Phosphatase 184 U/L 181 U/L Total Protein 5.6 GM/DL 5.7 GM/DL Lipase 387 U/L Magnesium Level 2.1 MG/DL Ammonia 57 MCMOL/L IMAGING: Renal Ultrasound 12/03/17 0000 Signed Impressions: Service Date/Time: Sunday, December 03, 2017 15:27 - CONCLUSION: Kidneys are somewhat prominent in size but otherwise within normal limits. No focal mass or hydronephrosis identified. Felipe Luo MD Cyst Biopsy Asp-Paracentesis US 12/02/17 0000 Signed Impressions: Service Date/Time: Saturday, December 02, 2017 11:37 - CONCLUSION: Uncomplicated ultrasound guided paracentesis. Julian Brantley MD Chest X-Ray 11/30/17 0000 Signed Impressions: Service Date/Time: Thursday, November 30, 2017 17:13 - CONCLUSION: No acute disease. Braden Akers Jr., MD PHYSICAL EXAMINATION: GENERAL: Awake and alert. No acute distress. HEENT: Head atraumatic. Extraocular movements grossly intact. Pupils reactive to light. Positive icterus. No conjunctival erythema. Oropharynx, moist mucosa. No visible lesions. NECK: Supple, without adenopathy or swelling. PULMONARY: Lungs clear, decreased breath sounds. CARDIOVASCULAR: Heart regular, S1 and S2, without murmurs, rubs or gallops. ABDOMEN: Obese. diminished bowel sounds. Mild tenderness around the umbilicus. No drainage coming through the skin. EXTREMITIES: No clubbing, cyanosis or edema. SKIN: Round, scabbed lesions approximately 1/2 cm diameter scattered over the upper extremities on both left and right, and also the lower extremities. No diffuse rash. NEUROLOGIC: No gross focal findings. PSYCHIATRIC: The patient is calm and cooperative. IMPRESSION: 1. Alcoholic liver cirrhosis. 2. Probable spontaneous bacterial peritonitis. The patient status post paracentesis and has leakage of fluid coming from the paracentesis site. Negative cultures. 3. Leukocytosis likely secondary to spontaneous bacterial peritonitis. White blood cell remains high. RECOMMENDATIONS: 1. Continue ceftriaxone. 2. Continue metronidazole PO. 3. Monitor white blood cell count. 4. Monitor blood cultures. I will continue to follow as needed. Cj Kaplan MD Dec 08, 2017 15:39
[2017-12-08 16:00] VITALS: BP 129/76; PULSE 87; RESP 19; TEMP 98; O2SAT 97
[2017-12-08] MEDS ORDERED: SODIUM PHOSPHATE INJ 30 MMOL in SODIUM CHLOR 0.9% 250 ML INJ 250 ML IV ONE (16:00)
[2017-12-08] MEDS: cefTRIAXone INJ 1,000 MG in SODIUM CHLORIDE 0.9% INJ 100 ML IV SCH (16:43)
[2017-12-08] MEDS: metroNIDAZOLE 500 MG TAB PO SCH (16:44)
[2017-12-08 20:00] VITALS: BP 136/86; PULSE 105; PULSE 93; RESP 20; TEMP 96; O2SAT 99
[2017-12-09] VITALS (8 sets, daily range): BP systolic 126–141; BP diastolic 75–97; PULSE 84–108; RESP 18–21; TEMP 96.2–97.9; O2SAT 96–100
[2017-12-09] MEDS: metroNIDAZOLE 500 MG TAB PO SCH ×5 (00:24→22:59)
[2017-12-09] MEDS: PENTOXIFYLLINE 400 MG CONTROLLED RELEASE TAB PO SCH ×3 (00:24→16:26)
[2017-12-09] MEDS: OCTREOTIDE INJ 100 MCG/ML VIAL SQ SCH ×3 (00:25→16:26)
[2017-12-09] MEDS: hydrOXYzine HCL 25 MG TAB PO PRN ×3 (03:40→18:25)
[2017-12-09] MEDS: MIDODRINE 5 MG TAB PO SCH ×3 (06:08→17:00)
[2017-12-09] MEDS: SODIUM BICARBONATE 650 MG TAB PO SCH ×3 (06:09→22:58)
[2017-12-09 06:10] LABS: HEMATOCRIT 32.6 % (39.0-51.0); HEMOGLOBIN 11.3 GM/DL (13.0-17.0); MEAN CELL VOLUME 103.6 FL (80.0-100.0); MEAN CORPUSCULAR HEMOGLOBIN 35.8 PG (27.0-34.0); MEAN CORPUSCULAR HGB CONC 34.6 % (32.0-36.0); MEAN PLATELET VOLUME 7.8 FL (7.0-11.0); PLATELET COUNT 99 TH/MM3 (150-450); RED BLOOD COUNT 3.15 MIL/MM3 (4.50-5.90); RED CELL DISTRIBUTION WIDTH 15.8 % (11.6-17.2); WHITE BLOOD COUNT 31.3 TH/MM3 (4.0-11.0)
[2017-12-09] MEDS: ALBUMIN 25% INJ 50 ML IV SCH ×3 (06:11→22:00)
[2017-12-09 06:17] LABS: INTERNATIONAL NORMALIZED RATIO 1.9 RATIO; PROTHROMBIN TIME - PATIENT 19.4 SEC (9.8-11.6)
[2017-12-09 07:14] LABS: ALBUMIN 2.8 GM/DL (3.4-5.0); BICARBONATE 14.9 MEQ/L (21.0-32.0); CALCIUM 8.5 MG/DL (8.5-10.1); DIRECT BILIRUBIN ADULT 18.5 MG/DL (0.0-0.2); INDIRECT BILIRUBIN 6.5 MG/DL (0.0-0.8); MAGNESIUM 1.9 MG/DL (1.5-2.5)
[2017-12-09 07:19] LABS: CREATININE 1.45 MG/DL (0.60-1.30); TOTAL PROTEIN 5.7 GM/DL (6.4-8.2)
[2017-12-09] MEDS: CHOLESTYRAMINE 4 GM PACKET PO SCH ×3 (08:27→17:03)
[2017-12-09] MEDS: LACTULOSE SYRUP 20 GM/30 ML CUP PO SCH ×4 (09:33→20:32)
[2017-12-09] MEDS: PHYTONADIONE 5 MG/SWFI 5 ML ORAL SYR PO SCH (09:33)
[2017-12-09] MEDS: RIFAXIMIN 550 MG TAB PO SCH ×2 (09:34→20:34)
[2017-12-09] MEDS: PANTOPRAZOLE SOD 40 MG DELAYED RELEASE TAB PO SCH (09:34)
[2017-12-09] MEDS: POTASSIUM CHLORIDE 10 MEQ CAP PO SCH ×2 (09:34→20:31)
[2017-12-09] MEDS: SODIUM CHLORIDE 0.9% FLUSH 10 ML FLUSH IV FLUSH SCH ×2 (09:35→20:30)
[2017-12-09] MEDS: methylPREDNISolone SOD SUCC 125 MG/2 ML VIAL IV PUSH SCH ×2 (09:37→20:30)
--- NOTE | 2017-12-09 10:44 | HHI.GIFU ---
Subjective Remarks Pt resting in bed. c/o he is tired today b/c he didn't get any sleep. (Alice Campbell) Objective Vitals I&O Vital Signs Date Time Temp Pulse Resp B/P (MAP) Pulse Ox O2 Delivery O2 Flow Rate FiO2 12/09/17 08:00 97.5 84 19 135/87 (103) 98 12/09/17 04:31 97.3 93 20 134/91 (105) 98 12/09/17 04:00 97 12/09/17 00:00 96.9 107 20 141/89 (106) 98 12/09/17 00:00 101 12/08/17 20:00 93 12/08/17 20:00 96.0 105 20 136/86 (103) 99 12/08/17 16:00 98.0 87 19 129/76 (93) 97 12/08/17 12:00 96.9 87 20 129/75 (93) 98 I/O 12/08/17 12/08/17 12/08/17 12/09/17 12/09/17 12/09/17 07:00 15:00 23:00 07:00 15:00 23:00 Intake Total 100 ml 560 ml 890 ml 240 ml Output Total 600 ml Balance 100 ml 560 ml 290 ml 240 ml Intake Oral 360 ml 480 ml 240 ml IV Total 100 ml 200 ml 410 ml Output Urine Total 600 ml # Voids 2 2 # Bowel Movements 0 1 Laboratory Laboratory Tests Test 12/09/17 05:15 White Blood Count 31.3 Red Blood Count 3.15 Hemoglobin 11.3 Hematocrit 32.6 Mean Corpuscular Volume 103.6 Mean Corpuscular Hemoglobin 35.8 Mean Corpuscular Hemoglobin Concent 34.6 Red Cell Distribution Width 15.8 Platelet Count 99 Mean Platelet Volume 7.8 Prothrombin Time 19.4 Prothromb Time International Ratio 1.9 Blood Urea Nitrogen 25 Creatinine 1.45 Random Glucose 141 Total Protein 5.7 Albumin 2.8 Calcium Level 8.5 Magnesium Level 1.9 Alkaline Phosphatase 159 Aspartate Amino Transf (AST/SGOT) 36 Alanine Aminotransferase (ALT/SGPT) 28 Total Bilirubin 25.0 Direct Bilirubin 18.5 Sodium Level 137 Potassium Level 3.6 Chloride Level 110 Carbon Dioxide Level 14.9 Anion Gap 12 Estimat Glomerular Filtration Rate 54 Indirect Bilirubin 6.5 Date/Time Source Procedure Growth Status 11/30/17 17:58 Blood Line Aerobic Blood Culture - Final NO GROWTH IN 5 DAYS Complete 11/30/17 17:58 Blood Line Anaerobic Blood Culture - Final NO GROWTH IN 5 DAYS Complete 12/02/17 11:40 Fluid Peritoneal Fluid Gram Stain - Final Complete 12/02/17 11:40 Fluid Peritoneal Fluid Body Fluid Culture - Final NO GROWTH IN 72 HRS.--AEROBICALLY OR ... Complete Imaging Last Impressions Renal Ultrasound 12/03/17 0000 Signed Impressions: Service Date/Time: Sunday, December 03, 2017 15:27 - CONCLUSION: Kidneys are somewhat prominent in size but otherwise within normal limits. No focal mass or hydronephrosis identified. Felipe Luo MD Cyst Biopsy Asp-Paracentesis US 12/02/17 0000 Signed Impressions: Service Date/Time: Saturday, December 02, 2017 11:37 - CONCLUSION: Uncomplicated ultrasound guided paracentesis. Julian Brantley MD Chest X-Ray 11/30/17 0000 Signed Impressions: Service Date/Time: Thursday, November 30, 2017 17:13 - CONCLUSION: No acute disease. Braden Akers Jr., MD Physical Exam HEENT: Normocephalic; atraumatic; + jaundice. Small multiple abrasions facial area as well as extremities CHEST: CTA shallow respirations CARDIAC: RRR ABDOMEN: soft, large, obese, Distended, soft, bowel sounds active EXTREMITIES: BLE 3+ edema SKIN: significant jaundice (Alice Campbell [employer]NER [employer]GRATION PL[employer]NER) Assessment and Plan Plan Assessment - Alcohol hepatitis- Current labs- AST-62 ALT-49 Alk phos-292 T bili-23.7 DF-52. Pt was recently admitted, left AMA, returned after 19 hours of being home. Reports one bloody while home, however mother at bedside thinks this is unlikely. - Cirrhosis- MELD-27. Previous liver work up as follows: Hepatitis panel negative, celiac panel negative, FINA negative, AMA borderline elevated, ASMA positive but low titer, Alpha 1 antitrypsin not elevated, Ceruloplasmin slightly elevated, Ferritin-708. Platelets WNL. Albumin 1.6 - Ascites- Paracentesis was last done on November 25 with 4,400 cc of clear, yellow fluid removed, fluid culture negative. SAAG-1.5 consistent with portal HTN as cause of ascites. Pt complaining of worsening abdominal distention. - Pancreatitis- elevated lipase-956 - Coagulopathy- INR 1.8 - Leukocytosis- WBC 34.3. ID following. Afebrile. On Rocephin and Flagyl - ELKIN- GFR-49 decreased since last admission CT abdomen and pelvis W contrast (11/24) --> Moderate amount of ascites. Hepatomegaly. 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 12/02/17 paracentesis noted 12/03/17 LFTs, wbc remain high, s/p paracentesis on 12/02 with 3700 ml output labs pending Diuretics on hold due to worsening kidney function (12/05) --> Per pts mother has been complaining about generalized abdominal pain and nausea, states has been very irritable. Remains off of diuretics due to decreased renal function. T bili remains elevated, would benefit from steroids, need clearance from ID given leukocytosis. Peritoneal fluid negative, no SBP. Ammonia WNL. Lipase trending down. INR 1.8- vit K. (12/06) No significant events over night. Pt denies nausea, vomiting. Continued abdominal pain. (+) BM today. Increase in WBCs noted. No repeat renal function from today. Remains on Pentoxifylline, Albumin, Octreotide gtt, Protonix, Lactulose, Xifaxan. 12/07/17, patient appears drowsy comfortable in bed. Minimal communication or response gives basic one-word answers. WBC count 31.7 which is declining Anemia hemoglobin 11.2, no obvious bleed, labs today are pending. No BM noted today , 1 noted on 12/06/17 12/09/17 lethargic today. modest improvement kidney function, LFTs. tbil 25 today. Plan: - low sodium diet - Cont. Lactulose - Cont. Pentoxifylline - Cont. Rifaximin - Cont Protonix - cont. Ceftriaxone and Flagyl - ETOH cessation - supportive care - not much more to add from GI standpoint, will sign off. please reconsult if needed Pt has been seen and examined by myself and Dr. Patel and this note is written on his behalf (Alice Campbell) Physician Comments Recovering slowly, nothing to add from GI point of view, Please notify us if needed again. (Arely Patel MD) Alice Campbell Dec 09, 2017 10:44 Arely Patel MD Dec 09, 2017 10:52
[2017-12-09] MEDS ORDERED: RESP: ALBUTEROL 2.5 MG/IPRATROPIUM 0.5 MG NEB (PRN) NEB (13:45)
[2017-12-09] MEDS ORDERED: RESP: ALBUTEROL 2.5 MG/IPRATROPIUM 0.5 MG NEB (SCH) NEB ONE (13:45)
[2017-12-09] MEDS ORDERED: LIDOCAINE HCL 1% 20 ML VIAL ONE (15:00)
--- NOTE | 2017-12-09 15:41 | HHI.PR ---
Subjective Remarks Patient not in room downstairs for procedure. Creatinine level appears to be improving. Continue midodrine as well as somatostatin at the current dosage for the present. If creatinine level continues to improve will consider discontinuing IV albumin and patient could potentially be discharged on midodrine and octreotide at current dosage with follow-up with me in the office in approximately 1-2 weeks. Duration of therapy not fully defined but would consider 2-4 weeks of combination therapy. Midodrine has occasionally been used indefinitely in some patients but again not fully defined. Pending on clinical course. If patient fails to be compliant with medical therapy and alcohol abstention prognosis my opinion would be very poor as discussed with patient and family previously. Please call with any questions. Objective Vital Signs Date Time Temp Pulse Resp B/P (MAP) Pulse Ox O2 Delivery O2 Flow Rate FiO2 12/09/17 13:28 18 12/09/17 12:00 96.9 95 20 126/75 (92) 96 12/09/17 08:00 97.5 84 19 135/87 (103) 98 12/09/17 04:31 97.3 93 20 134/91 (105) 98 12/09/17 04:00 97 12/09/17 00:00 96.9 107 20 141/89 (106) 98 12/09/17 00:00 101 12/08/17 20:00 93 12/08/17 20:00 96.0 105 20 136/86 (103) 99 12/08/17 16:00 98.0 87 19 129/76 (93) 97 I/O 12/08/17 12/08/17 12/08/17 12/09/17 12/09/17 12/09/17 07:00 15:00 23:00 07:00 15:00 23:00 Intake Total 100 ml 560 ml 890 ml 240 ml Output Total 600 ml Balance 100 ml 560 ml 290 ml 240 ml Intake Oral 360 ml 480 ml 240 ml IV Total 100 ml 200 ml 410 ml Output Urine Total 600 ml # Voids 2 2 # Bowel Movements 0 1 Result Diagram: 12/09/17 0515 12/09/17 0515 Daljti Coronado MD Dec 09, 2017 15:41
[2017-12-09] MEDS ORDERED: ALBUMIN 25% INJ 0 ML IV ONE (15:45)
--- NOTE | 2017-12-09 16:11 | HHI.PR ---
Subjective Remarks The patient stated he was ready to have his belly tapped again. He was complaining of some shortness of breath. His family was at the bedside and the questions were answered. Discussed with nursing. Objective Vitals Vital Signs Date Time Temp Pulse Resp B/P (MAP) Pulse Ox O2 Delivery O2 Flow Rate FiO2 12/09/17 13:28 18 12/09/17 12:00 96.9 95 20 126/75 (92) 96 12/09/17 08:00 97.5 84 19 135/87 (103) 98 12/09/17 04:31 97.3 93 20 134/91 (105) 98 12/09/17 04:00 97 12/09/17 00:00 96.9 107 20 141/89 (106) 98 12/09/17 00:00 101 12/08/17 20:00 93 12/08/17 20:00 96.0 105 20 136/86 (103) 99 I/O 12/08/17 12/08/17 12/08/17 12/09/17 12/09/17 12/09/17 06:59 14:59 22:59 06:59 14:59 22:59 Intake Total 100 ml 560 ml 630 ml 260 ml 240 ml Output Total 600 ml Balance 100 ml 560 ml 30 ml 260 ml 240 ml Intake Oral 360 ml 480 ml 240 ml IV Total 100 ml 200 ml 150 ml 260 ml Output Urine Total 600 ml # Voids 2 2 # Bowel Movements 0 1 Result Diagram: 12/09/17 0515 12/09/17 0515 Imaging Last Impressions Renal Ultrasound 12/03/17 0000 Signed Impressions: Service Date/Time: Sunday, December 03, 2017 15:27 - CONCLUSION: Kidneys are somewhat prominent in size but otherwise within normal limits. No focal mass or hydronephrosis identified. Felipe Luo MD Cyst Biopsy Asp-Paracentesis US 12/02/17 0000 Signed Impressions: Service Date/Time: Saturday, December 02, 2017 11:37 - CONCLUSION: Uncomplicated ultrasound guided paracentesis. Julian Brantley MD Chest X-Ray 11/30/17 0000 Signed Impressions: Service Date/Time: Thursday, November 30, 2017 17:13 - CONCLUSION: No acute disease. Braden Akers Jr., MD Objective Remarks Gen: No distress. Skin: Jaundice noted. HEENT: Marked icterus. Lungs: no rales, no wheezes. Heart: Regular rate and rhythm. GI: distended but soft, bandage in place. Extremities: 1-2+ LE edema. Neuro: slow speech. Psych: Flat affect. Procedures 12/02- paracentesis 3.7 L out Medications and IVs Current Medications Medications (Trade) Dose Ordered Sig/Virgil Route Start Time Stop Time Status Last Admin (NS Flush) 2 ml UNSCH PRN IV FLUSH 11/30/17 17:30 12/03/17 13:52 (NS Flush) 2 ml BID IV FLUSH 11/30/17 21:00 12/09/17 09:35 (Narcan Inj) 0.4 mg UNSCH PRN IV PUSH 11/30/17 17:30 Ceftriaxone Sodium 1000 mg/ Sodium Chloride 100 ml @ 200 mls/hr Q24H IV 12/01/17 17:00 12/08/17 16:43 (Xifaxan) 550 mg BID PO 11/30/17 21:00 12/09/17 09:34 (Protonix) 40 mg DAILY PO 12/02/17 09:00 12/09/17 09:34 (Roxicodone) 5 mg Q4H PRN PO 12/01/17 18:15 12/09/17 12:28 (Mephyton Liq) 5 mg DAILY PO 12/02/17 09:00 12/09/17 09:33 (KCl) 20 meq BID PO 12/03/17 21:00 12/09/17 09:34 (Proamatine) 7.5 mg TID@07,12,17 PO 12/04/17 17:00 12/09/17 11:45 (Atarax) 50 mg Q6H PRN PO 12/05/17 19:30 12/09/17 12:28 (Questran 4 Gm Pkt) 4 gm TIDAC PO 12/05/17 17:00 12/09/17 11:45 (TRENtal SR) 400 mg Q8H PO 12/06/17 08:00 12/09/17 08:26 (SandoSTATIN INJ) 200 mcg Q8H SQ 12/06/17 08:00 12/09/17 08:26 (Lactulose Liq) 30 ml QID PO 12/07/17 13:00 12/09/17 09:33 (SoluMEDROL INJ) 60 mg Q12HR IV PUSH 12/07/17 21:00 12/09/17 09:37 Albumin Human 50 ml @ 60 mls/hr Q8HR IV 12/07/17 22:00 12/09/17 06:11 (Sodium Bicarbonate) 650 mg Q8HR PO 12/07/17 22:00 12/09/17 12:29 (Flagyl) 500 mg Q6HR PO 12/08/17 18:00 12/09/17 11:45 (Duoneb Neb) 1 ampule Q2HR NEB PRN NEB 12/09/17 13:45 A/P Assessment and Plan Alcoholic liver cirrhosis with ascites S/p paracentesis- 3 - 4L , again 12/02- 3.7 L. - hold diuretics- with worsening renal functions. - trend LFTs. - d/c Librium 12/10. - Solumedrol added by GI. - repeat paracentesis 12/09. - palliative following, appreciate assistance. Acute on CKI Worsening renal functions- possibly hepatorenal syndrome. Nephrology consult appreciated. Creatinine improving. - Hold Aldactone. - close monitoring of BMP and avoid nephrotoxins. - Nephrology following. - continue IVF HC03 - + IV albumin- per nephrology. Hypokalemia/ Hypophosphatemia Chronic. - on 20 meq po bid. - na phos IV. Leukocytosis Possible SBP No growth in cultures. Worse on steroids. - continue on IV Flagyl and ceftriaxone. - ID service following. Hepatic encephalopathy Not improving. - continue Lactulose, make QID. - d/c Librium 12/10. Pruritus Due to Liver disease. - on Atarax as needed. - trial of cholestyramine- seemed to help. PPx: Edin Blanton DO Dec 09, 2017 16:11
--- NOTE | 2017-12-09 16:33 | RADRPT ---
EXAM DATE/TIME: 12/09/2017 14:45 [facility] COMPARISON: US GUIDED ABD PARACENTESIS, December 02, 2017, 11:37. INDICATIONS : Ascites. MEDICAL HISTORY : Gastroesophageal reflux disease. Hepatitis. ETOH use daily. Asthma. 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 ENCOUNTER: Initial ACUITY: 1 day PAIN SCORE: 0/10 LOCATION: Right lower quadrant FLUID: Total volume of 4600 cc of clear, yellow fluid was removed. Fluid was discarded. Paracentesis was therapeutic only. Post procedure scanning reveals no hematoma or other complication. TECHNIQUE: 1. Ultrasound guidance for abdominal paracentesis. 2. Paracentesis. The risks, benefits, and alternatives to ultrasound guided paracentesis were explained to the patient in detail including the risk of bleeding and infection. Written and verbal informed consent was obt ained. With the patient on the ultrasound table, ultrasound imaging was used to select the most appropriate approach for paracentesis. Overlying skin was prepped and draped in the usual sterile fashion and wi th a local anesthetic, a dermatotomy was made with an 11 blade scalpel. A 6 [place] [id number] ca theter was introduced into the peritoneal cavity and fluid was collected. The patient tolerated the procedure well and left the ultrasound suite in stable condition. CONCLUSION: Uncomplicated ultrasound guided paracentesis. Eddie Monteiro MD on December 09, 2017 at 16:31 Board Certified Radiologist. This report was verified electronically.
[2017-12-09] MEDS: cefTRIAXone INJ 1,000 MG in SODIUM CHLORIDE 0.9% INJ 100 ML IV SCH (17:00)
[2017-12-10] VITALS (8 sets, daily range): BP systolic 116–162; BP diastolic 76–104; PULSE 88–117; RESP 16–21; TEMP 96.3–97.6; O2SAT 95–98
[2017-12-10] MEDS: PENTOXIFYLLINE 400 MG CONTROLLED RELEASE TAB PO SCH ×4 (00:25→22:58)
[2017-12-10] MEDS: hydrOXYzine HCL 25 MG TAB PO PRN ×4 (00:26→18:18)
[2017-12-10] MEDS: OCTREOTIDE INJ 100 MCG/ML VIAL SQ SCH ×4 (00:27→22:59)
[2017-12-10 04:04] LABS: HEMATOCRIT 31.6 % (39.0-51.0); HEMOGLOBIN 10.9 GM/DL (13.0-17.0); MEAN CELL VOLUME 103.4 FL (80.0-100.0); MEAN CORPUSCULAR HEMOGLOBIN 35.5 PG (27.0-34.0); MEAN CORPUSCULAR HGB CONC 34.4 % (32.0-36.0); MEAN PLATELET VOLUME 7.7 FL (7.0-11.0); PLATELET COUNT 104 TH/MM3 (150-450); RED BLOOD COUNT 3.05 MIL/MM3 (4.50-5.90); RED CELL DISTRIBUTION WIDTH 16.1 % (11.6-17.2); WHITE BLOOD COUNT 34.6 TH/MM3 (4.0-11.0)
[2017-12-10 04:23] LABS: ALBUMIN 2.8 GM/DL (3.4-5.0); BICARBONATE 16.7 MEQ/L (21.0-32.0); CALCIUM 8.4 MG/DL (8.5-10.1); CREATININE 1.39 MG/DL (0.60-1.30); DIRECT BILIRUBIN ADULT 17.4 MG/DL (0.0-0.2); INDIRECT BILIRUBIN 6.7 MG/DL (0.0-0.8); MAGNESIUM 1.8 MG/DL (1.5-2.5); PHOSPHORUS 1.6 MG/DL (2.5-4.9); TOTAL BILIRUBIN ADULT 24.1 MG/DL (0.2-1.0); TOTAL PROTEIN 5.9 GM/DL (6.4-8.2)
[2017-12-10] MEDS: SODIUM BICARBONATE 650 MG TAB PO SCH ×3 (06:14→20:16)
[2017-12-10] MEDS: MIDODRINE 5 MG TAB PO SCH ×3 (06:14→17:01)
[2017-12-10] MEDS: metroNIDAZOLE 500 MG TAB PO SCH ×4 (06:14→22:58)
[2017-12-10] MEDS: ALBUMIN 25% INJ 50 ML IV SCH ×2 (06:18→12:36)
[2017-12-10] MEDS: methylPREDNISolone SOD SUCC 125 MG/2 ML VIAL IV PUSH SCH ×2 (09:06→20:14)
[2017-12-10] MEDS: CHOLESTYRAMINE 4 GM PACKET PO SCH ×3 (09:07→16:59)
[2017-12-10] MEDS: POTASSIUM CHLORIDE 10 MEQ CAP PO SCH ×2 (09:07→20:15)
[2017-12-10] MEDS: PANTOPRAZOLE SOD 40 MG DELAYED RELEASE TAB PO SCH (09:07)
[2017-12-10] MEDS: SODIUM CHLORIDE 0.9% FLUSH 10 ML FLUSH IV FLUSH SCH ×2 (09:07→20:14)
[2017-12-10] MEDS: PHYTONADIONE 5 MG/SWFI 5 ML ORAL SYR PO SCH (09:07)
[2017-12-10] MEDS: RIFAXIMIN 550 MG TAB PO SCH ×2 (09:07→20:15)
[2017-12-10] MEDS: LACTULOSE SYRUP 20 GM/30 ML CUP PO SCH ×4 (09:18→20:15)
--- NOTE | 2017-12-10 11:48 | HHI.PR ---
Subjective Remarks The patient was ambulating about his room. He said he still had some tightness of sides of his belly. He said he is not quite ready to go home yet. His family was at the bedside and their questions were answered. Objective Vitals Vital Signs Date Time Temp Pulse Resp B/P (MAP) Pulse Ox O2 Delivery O2 Flow Rate FiO2 12/10/17 08:00 97.6 89 16 116/76 (89) 97 12/10/17 04:16 88 12/10/17 04:00 96.8 88 20 139/83 (101) 95 12/10/17 00:24 96.4 93 21 162/104 (123) 95 12/09/17 20:00 96.2 108 21 128/88 (101) 98 12/09/17 17:16 97.9 97 19 134/97 (109) 100 12/09/17 16:00 97.8 93 18 132/83 (99) 100 12/09/17 13:28 18 12/09/17 12:00 96.9 95 20 126/75 (92) 96 I/O 12/09/17 12/09/17 12/09/17 12/10/17 12/10/17 12/10/17 07:00 15:00 23:00 07:00 15:00 23:00 Intake Total 240 ml 1000 ml 650 ml Output Total 900 ml Balance 240 ml 100 ml 650 ml Intake Oral 240 ml 1000 ml 600 ml IV Total 50 ml Output Urine Total 900 ml # Voids 2 3 # Bowel Movements 1 1 Result Diagram: 12/10/17 0344 12/10/17 0344 Imaging Last Impressions Cyst Biopsy Asp-Paracentesis US 12/09/17 0000 Signed Impressions: Service Date/Time: Saturday, December 09, 2017 14:45 - CONCLUSION: Uncomplicated ultrasound guided paracentesis. Eddie Monteiro MD Renal Ultrasound 12/03/17 0000 Signed Impressions: Service Date/Time: Sunday, December 03, 2017 15:27 - CONCLUSION: Kidneys are somewhat prominent in size but otherwise within normal limits. No focal mass or hydronephrosis identified. Felipe Luo MD Chest X-Ray 11/30/17 0000 Signed Impressions: Service Date/Time: Thursday, November 30, 2017 17:13 - CONCLUSION: No acute disease. Braden Akers Jr., MD Objective Remarks Gen: No distress. Skin: Jaundice noted. HEENT: Marked icterus. Lungs: no rales, no wheezes. Heart: Regular rate and rhythm. GI: distended but soft, bandage in place. Extremities: 1-2+ LE edema. Neuro: slow speech. Ambulating well. Psych: Calm. Procedures Paracenteses Medications and IVs Current Medications Medications (Trade) Dose Ordered Sig/Virgil Route Start Time Stop Time Status Last Admin (NS Flush) 2 ml UNSCH PRN IV FLUSH 11/30/17 17:30 12/03/17 13:52 (NS Flush) 2 ml BID IV FLUSH 11/30/17 21:00 12/10/17 09:07 (Narcan Inj) 0.4 mg UNSCH PRN IV PUSH 11/30/17 17:30 Ceftriaxone Sodium 1000 mg/ Sodium Chloride 100 ml @ 200 mls/hr Q24H IV 12/01/17 17:00 12/09/17 17:00 (Xifaxan) 550 mg BID PO 11/30/17 21:00 12/10/17 09:07 (Protonix) 40 mg DAILY PO 12/02/17 09:00 12/10/17 09:07 (Roxicodone) 5 mg Q4H PRN PO 12/01/17 18:15 12/10/17 06:16 (Mephyton Liq) 5 mg DAILY PO 12/02/17 09:00 12/10/17 09:07 (KCl) 20 meq BID PO 12/03/17 21:00 12/10/17 09:07 (Proamatine) 7.5 mg TID@,12,17 PO 12/04/17 17:00 12/10/17 06:14 (Atarax) 50 mg Q6H PRN PO 12/05/17 19:30 12/10/17 06:16 (Questran 4 Gm Pkt) 4 gm TIDAC PO 12/05/17 17:00 12/10/17 09:07 (TRENtal SR) 400 mg Q8H PO 12/06/17 08:00 12/10/17 09:07 (SandoSTATIN INJ) 200 mcg Q8H SQ 12/06/17 08:00 12/10/17 09:06 (Lactulose Liq) 30 ml QID PO 12/07/17 13:00 12/10/17 09:18 (SoluMEDROL INJ) 60 mg Q12HR IV PUSH 12/07/17 21:00 12/10/17 09:06 Albumin Human 50 ml @ 60 mls/hr Q8HR IV 12/07/17 22:00 12/10/17 06:18 (Sodium Bicarbonate) 650 mg Q8HR PO 12/07/17 22:00 12/10/17 06:14 (Flagyl) 500 mg Q6HR PO 12/08/17 18:00 12/10/17 06:14 (Duoneb Neb) 1 ampule Q2HR NEB PRN NEB 12/09/17 13:45 Sodium Phosphate 30 mmol/Sodium Chloride 260 ml @ 43.333 mls/ hr ONCE ONCE IV 12/10/17 11:45 12/10/17 17:44 UNV A/P Assessment and Plan Alcoholic liver cirrhosis with ascites S/p paracentesis- 11/25 - 4L , 12/02- 3.7 L and 12/09 - 4.6 L. - hold diuretics s/t renal function. Resume when OK per nephrology. - trend LFTs. - d/c Librium 12/10. - Solumedrol added by GI. Transition to PO prednisolone in AM. - palliative following, appreciate assistance. - PT/ OT. Acute on CKI Worsening renal functions- possibly hepatorenal syndrome. Nephrology consult appreciated. Creatinine improving. - Hold Aldactone. - close monitoring of BMP and avoid nephrotoxins. - continue albumin per nephrology. Hypokalemia/ Hypophosphatemia Chronic. - on 20 meq po bid. - na phos IV 12/10. Leukocytosis Possible SBP No growth in cultures. Worse on steroids. - continue on IV Flagyl and ceftriaxone. - ID service following. Hepatic encephalopathy Not improving. - continue Lactulose, make QID. - d/c Librium 12/10. Pruritus Due to Liver disease. - on Atarax as needed. - trial of cholestyramine- seemed to help. PPx: SCDs Discharge Planning Hopefully home with [facility] in the next few days Edin Andrade DO Dec 10, 2017 11:48
[2017-12-10] MEDS ORDERED: SODIUM PHOSPHATE INJ 30 MMOL in SODIUM CHLOR 0.9% 250 ML INJ 250 ML IV ONE (13:00)
[2017-12-10] MEDS: cefTRIAXone INJ 1,000 MG in SODIUM CHLORIDE 0.9% INJ 100 ML IV SCH (16:59)
--- NOTE | 2017-12-10 17:09 | HHI.NPPN ---
Subjective Renal Failure: Acute History of Present Illness The patient is a 37 yo [place] male who presented to this facility with complaints of abdominal pain, malaise, and jaundice. He has had 3 admissions to this facility in the past month with the last between 11/24 and 11/29 where he signed out AMA. Was recently diagnosed with liver cirrhosis, but unfortunately continued to drink at home. Mother and aunt present in the room---mother lives in [place] and says that he has "never been sick". He apparently has been drinking heavily since he was a teenager. Otherwise, denies any PMHx. He is a poor historian as he is lethargic. We were consulted as his renal functions have started to deteriorate. His SCr at time of consult is 1.91 rising from 1.59 12/02 and admitting SCr of 1.34. He was 1.19 at his sign out on 11/29, 1.02 on 11/24, 0.4-0.31 Oct 2017. Interval History Patient had no verbal complaints today. Family by bedside. Review of Systems General Constitutional: Fatigue Respiratory Lungs: SOB Gastrointestinal Gastrointestinal: Nausea & Vomiting, Diarrhea Objective Data Data Vital Signs Date Time Temp Pulse Resp B/P (MAP) Pulse Ox O2 Delivery O2 Flow Rate FiO2 12/10/17 12:00 96.3 88 18 148/97 (114) 98 12/10/17 08:00 97.6 89 16 116/76 (89) 97 12/10/17 04:16 88 12/10/17 04:00 96.8 88 20 139/83 (101) 95 12/10/17 00:24 96.4 93 21 162/104 (123) 95 12/09/17 20:00 96.2 108 21 128/88 (101) 98 12/09/17 17:16 97.9 97 19 134/97 (109) 100 -: 12/10/17 0344 12/10/17 0344 Physical Exam General Appearance: No Acute Distress, Comfortable Eyes Eye Exam: Jaundice Neck Neck Exam: Trachea Midline Pulmonary Resp Exam: Clear Bilaterally, Breath Sounds Equal Cardiology CV Exam: Regular, Normal Sinus Rhythm Gastrointestinal/Abdomen GI Exam: Distended Integumentary Skin Exam: Jaundice (patient very icteric clinically.) Extremeties Extremities Exam: Moderate Edema (ankles and lower legs.) Neurologic Neuro Exam: Awake Assessment/Plan Discussed Condition With: Patient, Parent Problem List: (1) Hepatorenal syndrome ICD Codes: K76.7 - Hepatorenal syndrome Plan: Patient's creatinine level is improving albeit slowly. Blood pressure elevated occasionally. At this point in time reduce midodrine to 2.5 mg 3 times a day. Discontinue IV albumin. Continue octreotide. I will sign off at this point in time. I would like the patient to continue on midodrine as well as octreotide continuously as an outpatient for an additional 2 weeks or so with a repeat BMP one week post discharge. Would like to see the patient in the office if he agrees in about 1-2 weeks for nephrology follow-up. The patient also needs a follow-up with GI and obtain primary care physician. Discussed the above with the family and patient. Again I advised the family and the patient that should he leave the hospital and resume alcohol consumption again I believe his prognosis will be very poor and likely his renal function will deteriorate acutely with probable poor chance for recovery. Hopefully the patient's renal function will improve however if his azotemia continues to worsen at some point renal replacement therapy may have to be considered. Should be noted however study indicated a mortality of patient's with hepatorenal syndrome who were not transplant candidates at 6 months was 84 % with a median survival of 21 days. I discussed with the patient and his mother that generally dialysis is indicated in the setting of hepatorenal syndrome and if the patient is a liver transplant candidate which unfortunately does not appear to be the case currently. If they do opt for dialysis with no improvement in his renal function they were advised that his prognosis would most likely be very poor on dialysis as the underlying issue here is hepatic dysfunction. (2) Acute renal insufficiency ICD Codes: N28.9 - Disorder of kidney and ureter, unspecified Plan: Secondary to the above. (3) Cirrhosis with alcoholism ICD Codes: K70.30 - Alcoholic cirrhosis of liver without ascites Status: Acute Plan: Not a transplant candidate due to ongoing EtOH abuse Abdomen distended today. Will defer to GI if paracentesis needs performed. (4) Acidosis ICD Codes: E87.2 - Acidosis Plan: Continue sodium bicarbonate to oral supplementation. (5) Ascites ICD Codes: R18.8 - Other ascites (6) Hypoalbuminemia ICD Codes: E88.09 - Other disorders of plasma-protein metabolism, not elsewhere classified Plan: Related to liver disease (7) Leukocytosis ICD Codes: D72.829 - Elevated white blood cell count, unspecified Plan: Peritoneal fluid from 12/02 culture pending. Noted increased in peritoneal WBC count. Management as per ID Problem Qualifiers (1) Cirrhosis with alcoholism: Qualified Codes: K70.31 - Alcoholic cirrhosis of liver with ascites Daljit Coronado MD Dec 10, 2017 17:09
[2017-12-10] MEDS: SODIUM CHLORIDE 0.9% FLUSH 10 ML FLUSH IV FLUSH PRN (22:59)
[2017-12-11] VITALS: BP 164/104; PULSE 104; RESP 20; TEMP 96.1; O2SAT 99
[2017-12-11] MEDS: hydrOXYzine HCL 25 MG TAB PO PRN ×5 (00:22→23:22)
[2017-12-11 03:56] VITALS: BP 130/92; PULSE 93; RESP 20; O2SAT 98
[2017-12-11] MEDS: metroNIDAZOLE 500 MG TAB PO SCH ×4 (05:28→23:22)
[2017-12-11] MEDS: SODIUM BICARBONATE 650 MG TAB PO SCH ×3 (05:28→20:28)
[2017-12-11] MEDS: MIDODRINE 5 MG TAB PO SCH ×3 (05:29→16:47)
[2017-12-11 08:00] VITALS: BP 134/88; PULSE 82; RESP 17; TEMP 96.4; O2SAT 97
[2017-12-11] MEDS: OCTREOTIDE INJ 100 MCG/ML VIAL SQ SCH ×3 (08:00→23:22)
[2017-12-11] MEDS: CHOLESTYRAMINE 4 GM PACKET PO SCH ×3 (08:00→16:47)
[2017-12-11] MEDS: PENTOXIFYLLINE 400 MG CONTROLLED RELEASE TAB PO SCH ×2 (08:00→16:47)
[2017-12-11 08:58] LABS: HEMOGLOBIN 11.3 GM/DL (13.0-17.0); MEAN CELL VOLUME 102.7 FL (80.0-100.0); MEAN CORPUSCULAR HEMOGLOBIN 35.3 PG (27.0-34.0); MEAN CORPUSCULAR HGB CONC 34.3 % (32.0-36.0); MEAN PLATELET VOLUME 7.9 FL (7.0-11.0); PLATELET COUNT 97 TH/MM3 (150-450); RED BLOOD COUNT 3.21 MIL/MM3 (4.50-5.90); RED CELL DISTRIBUTION WIDTH 16.6 % (11.6-17.2); WHITE BLOOD COUNT 37.8 TH/MM3 (4.0-11.0)
[2017-12-11] MEDS: prednisoLONE 10 MG ODT TAB PO SCH (09:00)
[2017-12-11] MEDS: RIFAXIMIN 550 MG TAB PO SCH ×2 (09:00→20:28)
[2017-12-11] MEDS: LACTULOSE SYRUP 20 GM/30 ML CUP PO SCH ×4 (09:00→20:30)
[2017-12-11] MEDS: SODIUM CHLORIDE 0.9% FLUSH 10 ML FLUSH IV FLUSH SCH ×2 (09:00→20:29)
[2017-12-11] MEDS: POTASSIUM CHLORIDE 10 MEQ CAP PO SCH ×2 (09:00→20:28)
[2017-12-11] MEDS: PHYTONADIONE 5 MG/SWFI 5 ML ORAL SYR PO SCH (09:00)
[2017-12-11] MEDS: PANTOPRAZOLE SOD 40 MG DELAYED RELEASE TAB PO SCH (09:00)
[2017-12-11 09:09] LABS: CREATININE 1.44 MG/DL (0.60-1.30); DIRECT BILIRUBIN ADULT 15.9 MG/DL (0.0-0.2); INDIRECT BILIRUBIN 7.7 MG/DL (0.0-0.8); TOTAL BILIRUBIN ADULT 23.6 MG/DL (0.2-1.0); TOTAL PROTEIN 6.2 GM/DL (6.4-8.2)
--- NOTE | 2017-12-11 11:54 | HHI.PR ---
Subjective Remarks The patient was resting in bed. He was complaining of leg swelling. He was also feeling weak and a little confused at times. His family was at the bedside and their questions were answered. Discussed with nursing. Objective Vitals Vital Signs Date Time Temp Pulse Resp B/P (MAP) Pulse Ox O2 Delivery O2 Flow Rate FiO2 12/11/17 08:00 96.4 82 17 134/88 (103) 97 12/11/17 03:56 93 20 130/92 (105) 98 12/11/17 00:00 96.1 104 20 164/104 (124) 99 12/11/17 00:00 104 12/10/17 20:15 110 12/10/17 20:00 97.5 117 20 137/96 (110) 97 12/10/17 16:00 96.7 96 18 133/86 (102) 97 12/10/17 12:00 96.3 88 18 148/97 (114) 98 I/O 12/10/17 12/10/17 12/10/17 12/11/17 12/11/17 12/11/17 07:00 15:00 23:00 07:00 15:00 23:00 Intake Total 650 ml 50 ml 1910 ml 480 ml 260 ml Balance 650 ml 50 ml 1910 ml 480 ml 260 ml Intake Oral 600 ml 1910 ml 480 ml IV Total 50 ml 50 ml 260 ml # Voids 3 4 6 # Bowel Movements 4 1 Result Diagram: 12/11/17 0720 12/11/17 0720 Imaging Last Impressions Cyst Biopsy Asp-Paracentesis US 12/09/17 0000 Signed Impressions: Service Date/Time: Saturday, December 09, 2017 14:45 - CONCLUSION: Uncomplicated ultrasound guided paracentesis. Eddie Monteiro MD Renal Ultrasound 12/03/17 0000 Signed Impressions: Service Date/Time: Sunday, December 03, 2017 15:27 - CONCLUSION: Kidneys are somewhat prominent in size but otherwise within normal limits. No focal mass or hydronephrosis identified. Felipe Luo MD Chest X-Ray 11/30/17 0000 Signed Impressions: Service Date/Time: Thursday, November 30, 2017 17:13 - CONCLUSION: No acute disease. Braden Akers Jr., MD Objective Remarks Gen: No distress. Skin: Jaundice noted, multiple superficial abrasions. HEENT: Marked icterus. Lungs: no rales, no wheezes. Heart: Regular rate and rhythm. GI: distended but soft, bandage in place. Extremities: 2+ LE edema. Neuro: slow speech. Ambulating well. Psych: Calm. Procedures Paracenteses Medications and IVs Current Medications Medications (Trade) Dose Ordered Sig/Virgil Route Start Time Stop Time Status Last Admin (NS Flush) 2 ml UNSCH PRN IV FLUSH 11/30/17 17:30 12/10/17 22:59 (NS Flush) 2 ml BID IV FLUSH 11/30/17 21:00 12/11/17 09:00 (Narcan Inj) 0.4 mg UNSCH PRN IV PUSH 11/30/17 17:30 Ceftriaxone Sodium 1000 mg/ Sodium Chloride 100 ml @ 200 mls/hr Q24H IV 12/01/17 17:00 12/10/17 16:59 (Xifaxan) 550 mg BID PO 11/30/17 21:00 12/11/17 09:00 (Protonix) 40 mg DAILY PO 12/02/17 09:00 12/11/17 09:00 (Roxicodone) 5 mg Q4H PRN PO 12/01/17 18:15 12/11/17 05:54 (Mephyton Liq) 5 mg DAILY PO 12/02/17 09:00 12/11/17 09:00 (KCl) 20 meq BID PO 12/03/17 21:00 12/11/17 09:00 (Atarax) 50 mg Q6H PRN PO 12/05/17 19:30 12/11/17 05:54 (Questran 4 Gm Pkt) 4 gm TIDAC PO 12/05/17 17:00 12/11/17 08:00 (TRENtal SR) 400 mg Q8H PO 12/06/17 08:00 12/11/17 08:00 (SandoSTATIN INJ) 200 mcg Q8H SQ 12/06/17 08:00 12/11/17 08:00 (Lactulose Liq) 30 ml QID PO 12/07/17 13:00 12/11/17 09:00 (Sodium Bicarbonate) 650 mg Q8HR PO 12/07/17 22:00 12/11/17 05:28 (Flagyl) 500 mg Q6HR PO 12/08/17 18:00 12/11/17 05:28 (Duoneb Neb) 1 ampule Q2HR NEB PRN NEB 12/09/17 13:45 (Orapred Odt) 40 mg DAILY PO 12/11/17 09:00 12/11/17 09:00 (Proamatine) 2.5 mg TID@07,12,17 PO 12/10/17 17:00 12/11/17 05:29 (Librium) 10 mg ONCE ONCE PO 12/11/17 11:45 12/11/17 11:46 UNV A/P Assessment and Plan Alcoholic liver cirrhosis with ascites S/p paracentesis- 11/25 - 4L , 12/02- 3.7 L and 12/09 - 4.6 L. - hold diuretics s/t renal function. Resume when OK per nephrology. - trend LFTs. Stable. - d/c Librium 12/11. - Solumedrol added by GI. Transitioned to PO prednisolone. - palliative following, appreciate assistance. - PT/ OT. Acute on [facility]I Worsening renal functions- possibly hepatorenal syndrome. Nephrology consult appreciated. Creatinine stabilizing. S/p albumin. - Hold Aldactone. - close monitoring of BMP and avoid nephrotoxins. - continue octreotide per nephrology. Hypokalemia/ Hypophosphatemia Chronic. - on 20 meq po bid. - na phos IV 12/10. Leukocytosis Possible SBP No growth in cultures. Worse on steroids. - continue on IV Flagyl and ceftriaxone. - ID service following. Hepatic encephalopathy Not improving. - continue Lactulose, make QID. - d/c Librium 12/11. Pruritus Due to Liver disease. - on Atarax as needed. - trial of cholestyramine- seemed to help. Edema S/t liver disease and holding diuretics. - hold diuretics as above. - keep legs elevated. - encourage ambulation. - add compression stockings. PPx: SCDs Discharge Planning Hopefully home with [facility] in the next few days Edin Andrade DO Dec 11, 2017 11:54
[2017-12-11 12:00] VITALS: BP 105/81; PULSE 105; RESP 18; TEMP 96.4; O2SAT 99
[2017-12-11 16:00] VITALS: BP 141/91; PULSE 100; RESP 18; TEMP 96.5; O2SAT 98
[2017-12-11] MEDS: cefTRIAXone INJ 1,000 MG in SODIUM CHLORIDE 0.9% INJ 100 ML IV SCH (16:48)
[2017-12-12] VITALS: BP 144/95; PULSE 101; RESP 20; TEMP 96.8; O2SAT 97
[2017-12-12] MEDS: PENTOXIFYLLINE 400 MG CONTROLLED RELEASE TAB PO SCH ×3 (00:37→16:42)
[2017-12-12 04:00] VITALS: BP 124/84; PULSE 109; RESP 20; TEMP 96.8; O2SAT 98
[2017-12-12] MEDS ORDERED: ONDANSETRON HCL 4 MG/2 ML VIAL IV PUSH PRN (04:30)
[2017-12-12] MEDS: SODIUM BICARBONATE 650 MG TAB PO SCH ×2 (05:00→13:47)
[2017-12-12] MEDS: metroNIDAZOLE 500 MG TAB PO SCH ×3 (05:00→16:42)
[2017-12-12] MEDS: hydrOXYzine HCL 25 MG TAB PO PRN ×3 (05:00→19:05)
[2017-12-12] MEDS: MIDODRINE 5 MG TAB PO SCH ×3 (06:07→16:43)
[2017-12-12 06:25] LABS: HEMATOCRIT 33.5 % (39.0-51.0); HEMOGLOBIN 11.3 GM/DL (13.0-17.0); MEAN CORPUSCULAR HEMOGLOBIN 35.1 PG (27.0-34.0); MEAN CORPUSCULAR HGB CONC 33.7 % (32.0-36.0); MEAN PLATELET VOLUME 8.1 FL (7.0-11.0); PLATELET COUNT 81 TH/MM3 (150-450); RED BLOOD COUNT 3.22 MIL/MM3 (4.50-5.90); WHITE BLOOD COUNT 45.4 TH/MM3 (4.0-11.0)
[2017-12-12 07:04] LABS: ALBUMIN 2.6 GM/DL (3.4-5.0); BICARBONATE 16.2 MEQ/L (21.0-32.0); CALCIUM 8.6 MG/DL (8.5-10.1); DIRECT BILIRUBIN ADULT 14.3 MG/DL (0.0-0.2); INDIRECT BILIRUBIN 6.1 MG/DL (0.0-0.8); MAGNESIUM 1.9 MG/DL (1.5-2.5); TOTAL BILIRUBIN ADULT 20.4 MG/DL (0.2-1.0); TOTAL PROTEIN 5.8 GM/DL (6.4-8.2)
[2017-12-12 07:08] LABS: CREATININE 1.47 MG/DL (0.60-1.30)
[2017-12-12 08:00] VITALS: BP 127/78; PULSE 109; RESP 17; TEMP 96.7; O2SAT 97
--- NOTE | 2017-12-12 10:11 | HHI.FF ---
Face to Face Verification Diagnosis: (1) Hepatorenal syndrome (2) Leukocytosis (3) Hypoalbuminemia (4) AA (alcohol abuse) (5) Acute renal insufficiency (6) Ascites (7) Cirrhosis with alcoholism (8) Pruritus (9) Portal hypertension Home Health Nursing Order: Medical education Signs/symptoms of disease process Medication education-adverse effect Wound care and dressing changes Nursing assessment with vital signs I have seen patient Ihsan العلي on 12/12/17. My clinical findings support the need for the requested home health care services because: Ltd mobility - disease progression Patient has SOB Deconditioned w/ increased weakness Med compliance is questionable Limited ability to care for self Need for psychosocial assistance Impaired cognition/judgement High risk of falls Injectable med education/admin I certify that my clinical findings support that this patient is homebound because: Impaired cognitive ability/safety Unsteady gait/balance Unsafe to leave home unassisted Need for psychosocial assistance Edin Andrade DO Dec 12, 2017 10:11
[2017-12-12] MEDS: CHOLESTYRAMINE 4 GM PACKET PO SCH ×3 (10:40→16:43)
[2017-12-12] MEDS: RIFAXIMIN 550 MG TAB PO SCH ×2 (10:42→21:21)
[2017-12-12] MEDS: POTASSIUM CHLORIDE 10 MEQ CAP PO SCH ×2 (10:43→21:20)
[2017-12-12] MEDS: PANTOPRAZOLE SOD 40 MG DELAYED RELEASE TAB PO SCH (10:43)
[2017-12-12] MEDS: prednisoLONE 10 MG ODT TAB PO SCH (10:43)
[2017-12-12] MEDS: LACTULOSE SYRUP 20 GM/30 ML CUP PO SCH ×4 (10:44→21:21)
[2017-12-12] MEDS: PHYTONADIONE 5 MG/SWFI 5 ML ORAL SYR PO SCH (10:44)
[2017-12-12] MEDS: OCTREOTIDE INJ 100 MCG/ML VIAL SQ SCH ×2 (10:45→16:42)
[2017-12-12] MEDS: SODIUM CHLORIDE 0.9% FLUSH 10 ML FLUSH IV FLUSH SCH ×2 (10:55→21:20)
[2017-12-12 12:00] VITALS: BP 133/87; PULSE 108; RESP 18; TEMP 95.6; O2SAT 100
--- NOTE | 2017-12-12 12:41 | HHI.PR ---
Subjective Remarks The patient was having a lot of nausea and vomiting. He said the Zofran was helping. He said he had some [place] food yesterday. He said he is going to try to eat bland food today. He said the compression tights were too small for his lower extremities. He has been ambulating. Discussed with family and nursing. Objective Vitals Vital Signs Date Time Temp Pulse Resp B/P (MAP) Pulse Ox O2 Delivery O2 Flow Rate FiO2 12/12/17 12:00 95.6 108 18 133/87 (102) 100 12/12/17 08:00 96.7 109 17 127/78 (94) 97 12/12/17 04:00 96.8 109 20 124/84 (97) 98 12/12/17 00:00 96.8 101 20 144/95 (111) 97 12/11/17 16:00 96.5 100 18 141/91 (108) 98 I/O 12/11/17 12/11/17 12/11/17 12/12/17 12/12/17 12/12/17 07:00 15:00 23:00 07:00 15:00 23:00 Intake Total 480 ml 260 ml 2850 ml 240 ml Balance 480 ml 260 ml 2850 ml 240 ml Intake Oral 480 ml 2850 ml 240 ml IV Total 260 ml # Voids 6 6 6 # Bowel Movements 1 2 0 Result Diagram: 12/12/17 0535 12/12/17 0555 Imaging Last Impressions Cyst Biopsy Asp-Paracentesis US 12/09/17 0000 Signed Impressions: Service Date/Time: Saturday, December 09, 2017 14:45 - CONCLUSION: Uncomplicated ultrasound guided paracentesis. Eddie Monteiro MD Renal Ultrasound 12/03/17 0000 Signed Impressions: Service Date/Time: Sunday, December 03, 2017 15:27 - CONCLUSION: Kidneys are somewhat prominent in size but otherwise within normal limits. No focal mass or hydronephrosis identified. Felipe Luo MD Chest X-Ray 11/30/17 0000 Signed Impressions: Service Date/Time: Thursday, November 30, 2017 17:13 - CONCLUSION: No acute disease. Braden Akers Jr., MD Objective Remarks Gen: No distress. Skin: Jaundice noted, multiple superficial ulcers. HEENT: Marked icterus. Lungs: no rales, no wheezes. Heart: Regular rate and rhythm. GI: distended but soft, bandage in place. Extremities: 2+ LE edema. Neuro: slow speech. Ambulating well. Psych: Calm. Procedures Paracenteses Medications and IVs Current Medications Medications (Trade) Dose Ordered Sig/Virgil Route Start Time Stop Time Status Last Admin (NS Flush) 2 ml UNSCH PRN IV FLUSH 11/30/17 17:30 12/10/17 22:59 (NS Flush) 2 ml BID IV FLUSH 11/30/17 21:00 12/12/17 10:55 (Narcan Inj) 0.4 mg UNSCH PRN IV PUSH 11/30/17 17:30 Ceftriaxone Sodium 1000 mg/ Sodium Chloride 100 ml @ 200 mls/hr Q24H IV 12/01/17 17:00 12/11/17 16:48 (Xifaxan) 550 mg BID PO 11/30/17 21:00 12/12/17 10:42 (Protonix) 40 mg DAILY PO 12/02/17 09:00 12/12/17 10:43 (Roxicodone) 5 mg Q4H PRN PO 12/01/17 18:15 12/12/17 10:59 (Mephyton Liq) 5 mg DAILY PO 12/02/17 09:00 12/12/17 10:44 (KCl) 20 meq BID PO 12/03/17 21:00 12/12/17 10:43 (Atarax) 50 mg Q6H PRN PO 12/05/17 19:30 12/12/17 10:59 (Questran 4 Gm Pkt) 4 gm TIDAC PO 12/05/17 17:00 12/12/17 10:40 (TRENtal SR) 400 mg Q8H PO 12/06/17 08:00 12/12/17 10:41 (SandoSTATIN INJ) 200 mcg Q8H SQ 12/06/17 08:00 12/12/17 10:45 (Lactulose Liq) 30 ml QID PO 12/07/17 13:00 12/12/17 10:44 (Sodium Bicarbonate) 650 mg Q8HR PO 12/07/17 22:00 12/12/17 05:00 (Flagyl) 500 mg Q6HR PO 12/08/17 18:00 12/12/17 10:59 (Duoneb Neb) 1 ampule Q2HR NEB PRN NEB 12/09/17 13:45 (Orapred Odt) 40 mg DAILY PO 12/11/17 09:00 12/12/17 10:43 (Proamatine) 2.5 mg TID@07,12,17 PO 12/10/17 17:00 12/12/17 06:07 (Zofran Inj) 4 mg Q6HR PRN IV PUSH 12/12/17 04:30 12/12/17 04:59 A/P Assessment and Plan Alcoholic liver cirrhosis with ascites S/p paracentesis- 11/25 - 4L , 12/02- 3.7 L and 12/09 - 4.6 L. - hold diuretics s/t renal function. Resume when OK per nephrology. - trend LFTs. Stable. - d/c Librium 12/11. - Solumedrol added by GI. Transitioned to PO prednisolone. Will need a slow taper upon discharge. - palliative following, appreciate assistance. - PT/ OT. - Zofran as needed. - Advance diet as tolerated. Acute on CKI Worsening renal functions- possibly hepatorenal syndrome. Nephrology consult appreciated. Creatinine stabilizing. S/p albumin. - Hold Aldactone. - close monitoring of BMP and avoid nephrotoxins. - continue octreotide per nephrology. Hypokalemia/ Hypophosphatemia Chronic. - on 20 meq po bid. - na phos IV 12/10. Leukocytosis Possible SBP. No growth in cultures. Worse on steroids. - continue on IV Flagyl and ceftriaxone. - ID service following. - Obtain hematology consult. Hepatic encephalopathy Not improving. - continue Lactulose, make QID. - d/c Librium 12/11. Pruritus Due to Liver disease. - on Atarax as needed. - trial of cholestyramine- seemed to help. Edema S/t liver disease and holding diuretics. Unable to tolerate compression stockings. - hold diuretics as above. - keep legs elevated. - encourage ambulation. PPx: SCDs Discharge Planning Hopefully home with [facility] in the next few days. Awaiting hematology eval. Needs home octreotide injections set-up. Edin Andrade DO Dec 12, 2017 12:41
[2017-12-12 15:00] VITALS: BP 138/91; PULSE 127; RESP 19; TEMP 96.5; O2SAT 99
[2017-12-12] MEDS: cefTRIAXone INJ 1,000 MG in SODIUM CHLORIDE 0.9% INJ 100 ML IV SCH (16:39)
--- NOTE | 2017-12-12 17:37 | HHI.HCPN ---
Reason for visit a. To assist with evaluation and management of symptoms including: Pain, pruritus, nausea/vomiting b. To assist medical decision maker(s) with: better understanding of current medical conditions; weighing benefits/burdens of medical treatment options; making medical treatment decisions. Subjective/Interval History Patient seen for follow-up of symptom management and goals of care. Sitting up in bed talking with family. He has been nauseated with vomiting all day. He feels this was secondary to eating German food. White blood cell count of 45.4, platelets decreased to 81. Renal function mildly worse, BUN 32, creatinine 1.47. Bilirubin now decreased to 20.4 with T.I.D Questran. Seen by hematology, cleared for receiving steroids. Per my discussion with Dr. Gutierrez , she feels that this is reactive. Plan is for home discharge soon with home health to assist with octreotide injections. . Family/friend interactions Met with patient seen in room and answered multiple questions regarding at home transition, follow-up with different specialists and again, how soon can he be considered for transplant if a family member is willing to donate part of their liver. This has been referred to the GI specialist at his outpatient appointment. He has been advised to maintain a girth measurement and weight records to provide GI with appropriate information to be able to manage his paracentesis schedule. Advance Directives Living Will: Never completed Health Care Surrogate: Copy in medical record Durable Power of Machine Or Machinery Mechanic: Never completed Advance Directive Specifics Date completed: 11/28/2017. . Health Care Surrogate(s): He has elected his mother Linda العلي as his healthcare surrogate. . Documented care wishes: No living will available. . Objective Vital Signs Date Time Temp Pulse Resp B/P (MAP) Pulse Ox O2 Delivery O2 Flow Rate FiO2 12/12/17 12:00 95.6 108 18 133/87 (102) 100 12/12/17 08:00 96.7 109 17 127/78 (94) 97 12/12/17 04:00 96.8 109 20 124/84 (97) 98 12/12/17 00:00 96.8 101 20 144/95 (111) 97 Intake & Output 12/12/17 12/12/17 07:00 19:00 Intake Total 240 ml Balance 240 ml Intake Oral 240 ml # Voids 6 # Bowel Movements 0 Physical Exam CONSTITUTIONAL/GENERAL: This is an adequately nourished patient, in no apparent distress. TUBES/LINES/DRAINS: PIV right wrist. SKIN: Significant jaundice, no rashes, or lesions. Ecchymoses on upper extremities. Multiple scabbed lesions seen on all extremities and across trunk. Right lower abdomen ascitic drainage. HEAD: Atraumatic. Normocephalic. EYES: Pupils equal and round and reactive. Extraocular motions intact. Scleral icterus. No injection or drainage. Fundi not examined. CARDIOVASCULAR: Regular rate and rhythm, S1, S2 with 2/6 systolic ejection murmur, without gallops, or rubs. No JVD. Peripheral pulses symmetric. RESPIRATORY/CHEST: Symmetric, unlabored respirations. Clear to auscultation. Breath sounds equal bilaterally. No wheezes, rales, or rhonchi. GASTROINTESTINAL: Abdomen soft, distended, tender to palpation. Unable to evaluate organomegaly due to body habitus but noted on imaging studies to have hepatosplenomegaly. GENITOURINARY: Without palpable bladder distension. Voiding. MUSCULOSKELETAL: Extremities without clubbing, cyanosis, or edema. No joint tenderness or effusion noted. No calf tenderness. No mottling or clubbing. NEUROLOGICAL: Alert and oriented, participating in conversation. PSYCHIATRIC: Calm, cooperative no obvious anxiety/depression. no apparent hallucinations or other psychotic thought process. . Diagnostic Tests Laboratory Laboratory Tests Test 12/10/17 03:44 12/11/17 07:20 12/12/17 05:35 12/12/17 05:55 White Blood Count 34.6 TH/MM3 (4.0-11.0) 37.8 TH/MM3 (4.0-11.0) 45.4 TH/MM3 (4.0-11.0) Red Blood Count 3.05 MIL/MM3 (4.50-5.90) 3.21 MIL/MM3 (4.50-5.90) 3.22 MIL/MM3 (4.50-5.90) Hemoglobin 10.9 GM/DL (13.0-17.0) 11.3 GM/DL (13.0-17.0) 11.3 GM/DL (13.0-17.0) Hematocrit 31.6 % (39.0-51.0) 33.0 % (39.0-51.0) 33.5 % (39.0-51.0) Mean Corpuscular Volume 103.4 FL (80.0-100.0) 102.7 FL (80.0-100.0) 104.0 FL (80.0-100.0) Mean Corpuscular Hemoglobin 35.5 PG (27.0-34.0) 35.3 PG (27.0-34.0) 35.1 PG (27.0-34.0) Mean Corpuscular Hemoglobin Concent 34.4 % (32.0-36.0) 34.3 % (32.0-36.0) 33.7 % (32.0-36.0) Red Cell Distribution Width 16.1 % (11.6-17.2) 16.6 % (11.6-17.2) 17.0 % (11.6-17.2) Platelet Count 104 TH/MM3 (150-450) 97 TH/MM3 (150-450) 81 TH/MM3 (150-450) Mean Platelet Volume 7.7 FL (7.0-11.0) 7.9 FL (7.0-11.0) 8.1 FL (7.0-11.0) Blood Urea Nitrogen 26 MG/DL (7-18) 29 MG/DL (7-18) 32 MG/DL (7-18) Creatinine 1.39 MG/DL (0.60-1.30) 1.44 MG/DL (0.60-1.30) 1.47 MG/DL (0.60-1.30) Random Glucose 161 MG/DL (74-106) 140 MG/DL (74-106) 154 MG/DL (74-106) Total Protein 5.9 GM/DL (6.4-8.2) 6.2 GM/DL (6.4-8.2) 5.8 GM/DL (6.4-8.2) Albumin 2.8 GM/DL (3.4-5.0) 3.0 GM/DL (3.4-5.0) 2.6 GM/DL (3.4-5.0) Calcium Level 8.4 MG/DL (8.5-10.1) 9.0 MG/DL (8.5-10.1) 8.6 MG/DL (8.5-10.1) Phosphorus Level 1.6 MG/DL (2.5-4.9) Magnesium Level 1.8 MG/DL (1.5-2.5) 2.0 MG/DL (1.5-2.5) 1.9 MG/DL (1.5-2.5) Alkaline Phosphatase 148 U/L (45-117) 152 U/L (45-117) 148 U/L (45-117) Aspartate Amino Transf (AST/SGOT) 27 U/L (15-37) 35 U/L (15-37) 43 U/L (15-37) Alanine Aminotransferase (ALT/SGPT) 28 U/L (12-78) 33 U/L (12-78) 36 U/L (12-78) Total Bilirubin 24.1 MG/DL (0.2-1.0) 23.6 MG/DL (0.2-1.0) 20.4 MG/DL (0.2-1.0) Direct Bilirubin 17.4 MG/DL (0.0-0.2) 15.9 MG/DL (0.0-0.2) 14.3 MG/DL (0.0-0.2) Sodium Level 139 MEQ/L (136-145) 139 MEQ/L (136-145) 143 MEQ/L (136-145) Potassium Level 3.9 MEQ/L (3.5-5.1) 3.6 MEQ/L (3.5-5.1) 3.5 MEQ/L (3.5-5.1) Chloride Level 111 MEQ/L (98-107) 111 MEQ/L (98-107) 116 MEQ/L (98-107) Carbon Dioxide Level 16.7 MEQ/L (21.0-32.0) 16.0 MEQ/L (21.0-32.0) 16.2 MEQ/L (21.0-32.0) Anion Gap 11 MEQ/L (5-15) 12 MEQ/L (5-15) 11 MEQ/L (5-15) Estimat Glomerular Filtration Rate 57 ML/MIN (>89) 55 ML/MIN (>89) 53 ML/MIN (>89) Indirect Bilirubin 6.7 MG/DL (0.0-0.8) 7.7 MG/DL (0.0-0.8) 6.1 MG/DL (0.0-0.8) . Result Diagram: 12/12/17 0535 12/12/17 0555 Microbiology Microbiology Date/Time Source Procedure Growth Status 11/30/17 17:58 Blood Line Aerobic Blood Culture - Final NO GROWTH IN 5 DAYS Complete 11/30/17 17:58 Blood Line Anaerobic Blood Culture - Final NO GROWTH IN 5 DAYS Complete 12/02/17 11:40 Fluid Peritoneal Fluid Gram Stain - Final Complete 12/02/17 11:40 Fluid Peritoneal Fluid Body Fluid Culture - Final NO GROWTH IN 72 HRS.--AEROBICALLY OR ... Complete . Imaging Last Impressions Cyst Biopsy Asp-Paracentesis US 12/09/17 0000 Signed Impressions: Service Date/Time: Saturday, December 09, 2017 14:45 - CONCLUSION: Uncomplicated ultrasound guided paracentesis. Eddie Monteiro MD Renal Ultrasound 12/03/17 0000 Signed Impressions: Service Date/Time: Sunday, December 03, 2017 15:27 - CONCLUSION: Kidneys are somewhat prominent in size but otherwise within normal limits. No focal mass or hydronephrosis identified. Felipe Luo MD Chest X-Ray 11/30/17 0000 Signed Impressions: Service Date/Time: Thursday, November 30, 2017 17:13 - CONCLUSION: No acute disease. Braden Akers Jr., MD . Procedures 12/02/2017: Paracentesis of 3700 mL 12/09/17: Paracentesis of 4600 mL . Assessment and Plan Disease Oriented Problem List: (1) Portosystemic shunt, spontaneous (2) Hyperammonemia (3) Cirrhosis with alcoholism Symptom Scale: (1) Pruritus (2) Pain, generalized Pertinent Non-Medical Issues Psychosocial:He was born and completed high school in [place] then moved to [place] with his parents when they retired. He has never been or had children. He has never been in the armed service. He works at [employer]. Spiritual:Identifies with the Jehov[employer] ovidio. Legal: None identified. Ethical issues impacting care: None identified. . Important Contacts Mother: Linda العلي . Prognosis Prognosis is guarded. He has a long history of alcohol abuse with subsequent liver decline. His meld score is 25. He voices no intention for alcohol cessation. His ammonia continues to climb and he is somewhat noncompliant with medical therapy. He is likely to experience continued decline in complications with recurrent hospitalizations. . Code Status: Full Code Plan PLAN: Legal decision maker: At this time the patient is able to make his own decisions. As his physical condition declines this could be problematic in light of his hyperammonemia. He has named his mother healthcare surrogate but did not have an alternate suggestion. Goals: Aggressive CODE STATUS: FULL CODE SYMPTOMS: * Pain: He is receiving oxycodone, without Tylenol for his pain which he states does improve the pain. He is at risk for continued discomfort due to recurrent ascites, bedbound status and invasive lines. He is receiving oxycodone 5 mg every 4 hours as needed for pain greater than 5, which he states is adequate to manage his pain. He is taking 3-4 doses daily * Pruritus: He is receiving hydroxyzine, 50 mg every 6 hours as needed for itching. He remains mildly pruritic, but improved on the increased dose. He is currently on steroids which is assisting in the management of his pruritus. * Nausea/vomiting: Multifactorial to include symptoms of hepatorenal syndrome versus eating German food last evening. This is improved with Zofran and resolved at this evaluation. Palliative care will continue to follow the patient during hospital course as condition evolves, to assist patient/decision-maker with understanding of their medical conditions, weighing benefits/burdens of treatment options, for clarification of goals of treatment. Additionally will assist with any symptoms of palliative concern. . Time Spent Time Periods: 17: 30-18: 05 Total Floor Time (mins): 60 Face to Face Time (mins): 35 >50% Counseling/Coord of Care: Yes Attestation To help prompt me to consider important information that might be impacting today's encounter and assessment, information from prior notes written by myself or my colleagues may have been "brought forward" into today's note. My signature on this note, however, is an attestation that I personally performed the exam, history, and/or decision-making noted today, and, unless otherwise indicated, the interactions with patient, family, and staff as well as the review of records all occurred today. I also attest that the listed assessment and stated plan reflect my best clinical judgment today based on the combination of historical information, prior notes, and today's exam/ interactions. When time spent is documented, it refers only to time spent today by the signer, or if indicated, combined time spent today by collaborating physician/nurse practitioner. . Ariana Pedroza Dec 12, 2017 5:37 pm
--- NOTE | 2017-12-12 19:38 | MB ---
cc: Carmenza Gutierrez MD, Michael J DO DATE OF CONSULT: 12/12/2017 REFERRING PHYSICIAN: Edin Andrade DO CHIEF COMPLAINT: Dr. Adnrade requested consultation for Mr. العلي regarding leukocytosis associated with cirrhosis and liver disease. HISTORY OF PRESENT ILLNESS: Mr. Zohra dove is a 37-year-old man well known from inpatient consultation at [facility] on 11/12/2017. He denies any past history except for heavy drinking. He denies any history of hepatitis A, B, or C. He presented with pruritus and jaundice. He has evidence of portal hypertension, ascites and a lesion in the left lobe of the liver that was concerning for malignancy. This was the initial reason hematology/oncology was consulted. MRI of the abdomen shows hepatomegaly with steatosis. The morphology suggests cirrhosis. The area of asymmetry is focal fat deposition. The patient was referred for biopsy, which was canceled by interventional radiologist. Lesion appeared to be benign. He has had multiple admissions since then. Once on 11/24 and discharged on 11/29. He left AMA. He came back in 11/30. He has been here since then. His course was complicated by worsening renal function. Nephrology was consulted. His creatinine is stable at 1.47. He had worsening liver disease with bilirubin increased to 28.2 and this settled down to a bilirubin of 20. He has had tense ascites requiring paracentesis on 11/25 and 12/05. He continues to leak from the paracentesis site. His AST and ALT are normal. His alkaline phosphatase has trended down. Albumin is severely low. He has evidence of anasarca with the 3+ pitting edema. From 11/11, his white cell count was elevated, predominantly neutrophils. His platelet count was initially normal. It trended down until it was 81,000 at the time of the consultation. He has some mild anemia. Hemoglobin is down to 11.3 at the time of the consultation. Hematology/oncology is consulted for the leukocytosis. His white cell count is 37,000 at the time that steroids were started. It went up to 45,000. Review of his differential from 12/04 shows that this was predominantly neutrophils, mild monocytosis. His ferritin is elevated at 708 as marker of inflammation. Fibrinogen is 353, which is high for with person with cirrhotic liver disease. Mr. العلي complains of the food. He has had some nausea and vomiting. He has some leaking from the paracentesis site. He has his family at bedside. They are very concerned about his well being. They are encouraging him to take in good nutrition. He has been advised to stop drinking. PAST MEDICAL HISTORY: 1. Painless jaundice. 2. Alcoholic liver disease. 3. Ascites. 4. Cirrhosis. 5. Hypoalbuminemia. 6. Anasarca. 7. Leukocytosis. 8. New thrombocytopenia. 9. Mild anemia. PAST SURGICAL HISTORY: Paracentesis x 2. SOCIAL HISTORY: Heavy drinker, smokes 1/4 pack per day. Lives alone. ALLERGIES: NO KNOWN DRUG ALLERGIES. FAMILY HISTORY: Grandmother of gynecologic metastatic cancer. Both parents are alive. Mother is at bedside. CURRENT MEDICATIONS: Ondansetron, prednisolone, midodrine, DuoNebs, Flagyl, lactulose, pentoxifylline, Sandostatin, Atarax, Questran, Protonix, vitamin K, oxycodone, Xifaxan, ceftriaxone. PHYSICAL EXAMINATION: VITAL SIGNS: Temperature 95.6, heart rate 108, respiratory rate 18, blood pressure 133/87, saturation 100%. GENERAL: Mr. العلي is a chronically ill-appearing man, who looks depressed. He is overtly jaundiced. HEENT: He has some scabs over his face. His pupils are round, reactive to light and accommodation. Oropharynx is clear. NECK: Supple. LUNGS: Clear with some crackles at the bases. CARDIOVASCULAR: Reveals mild tachycardia. ABDOMEN: Distended. Several scabs. Dressing on the right lower quadrant where the paracentesis was. EXTREMITIES: Lower extremity with 2+ pitting edema. NEUROLOGIC: Nonfocal. LABORATORY DATA: White blood cell count 45,000, hemoglobin 11.3, platelet count 81,000. ASSESSMENT AND PLAN: Mr. العلي is a 37-year-old man with cirrhotic liver disease, portal hypertension and jaundice. He has hypoalbuminemia, subsequent anasarca and a 2+ pitting edema of the lower extremity. We discussed that main problem is related to his underlying liver disease. He is aware that he cannot drink anymore. We discussed evaluation of the leukocytosis. Workup for infectious etiology has been negative. Multiple cultures from 11/25, 11/29, 11/30 of peritoneal fluid has been negative. There are markers of inflammation, namely the ferritin. Suspect that the albumin is also high. He has known vitamin D deficiency that needs to be corrected. We will optimize his bone marrow nutrition, replacing B12 and folic acid to enhance hematopoiesis. He has no overt evidence of iron deficiency. The macrocytosis is concerning for underlying liver disease contributing to the anemia. The thrombopoietin deficiency also contribute to the thrombocytopenia. Other drug effect cannot be excluded. He is on cephalosporin. Since he has cirrhosis, the possibility of hypersplenism is also considered contributing to the thrombocytopenia. Leukocytosis, predominantly neutrophils, which is in keeping with a reactive process. Flow cytometric analysis and peripheral review with pathology will be performed. Further recommendations depending on the results of the above. We discussed a bone marrow biopsy evaluation to make a diagnosis of underlying chronic myeloproliferative disorder or myelodysplastic syndrome. I recommend deferring bone marrow biopsy procedure for now. It is unlikely to change our acute management. Supportive treatment continues. LDH will be repeated. A CBC with differential will be requested tomorrow. MD MAKEDA Moreira/DAVID , 05:42 PM , 07:36 PM
[2017-12-12 20:00] VITALS: BP 126/83; PULSE 95; RESP 17; TEMP 96.2; O2SAT 99
[2017-12-13] VITALS: BP 155/78; PULSE 93; RESP 17; TEMP 95.8; O2SAT 98
[2017-12-13] MEDS: hydrOXYzine HCL 25 MG TAB PO PRN ×2 (00:51→07:21)
[2017-12-13] MEDS: SODIUM BICARBONATE 650 MG TAB PO SCH ×3 (00:51→14:53)
[2017-12-13] MEDS: metroNIDAZOLE 500 MG TAB PO SCH ×4 (00:52→17:46)
[2017-12-13] MEDS: PENTOXIFYLLINE 400 MG CONTROLLED RELEASE TAB PO SCH ×3 (00:53→16:16)
[2017-12-13] MEDS: OCTREOTIDE INJ 100 MCG/ML VIAL SQ SCH ×3 (00:53→16:16)
[2017-12-13] MEDS: MIDODRINE 5 MG TAB PO SCH ×3 (04:56→16:16)
[2017-12-13] MEDS: prednisoLONE 10 MG ODT TAB PO SCH (08:49)
[2017-12-13] MEDS: CHOLECALCIFEROL (VIT D3) 1000 UNIT TAB PO SCH (08:49)
[2017-12-13] MEDS: POTASSIUM CHLORIDE 10 MEQ CAP PO SCH ×2 (08:49→21:00)
[2017-12-13] MEDS: CHOLESTYRAMINE 4 GM PACKET PO SCH ×3 (08:49→16:16)
[2017-12-13] MEDS: RIFAXIMIN 550 MG TAB PO SCH ×2 (08:49→21:11)
[2017-12-13] MEDS: LACTULOSE SYRUP 20 GM/30 ML CUP PO SCH ×4 (08:49→21:11)
[2017-12-13] MEDS: PANTOPRAZOLE SOD 40 MG DELAYED RELEASE TAB PO SCH (08:50)
[2017-12-13] MEDS: PHYTONADIONE 5 MG/SWFI 5 ML ORAL SYR PO SCH (08:50)
[2017-12-13] MEDS: FOLIC ACID 1 MG TAB PO SCH (08:50)
[2017-12-13] MEDS: SODIUM CHLORIDE 0.9% FLUSH 10 ML FLUSH IV FLUSH SCH ×2 (08:51→21:10)
[2017-12-13 12:00] VITALS: BP 114/73; PULSE 79; RESP 17; TEMP 96.5; O2SAT 94
--- NOTE | 2017-12-13 12:36 | PD.ONC.PN ---
Subjective Subjective Remarks Afebrile overnight. Patient resting in room. late entry, patient seen at 10am. patient states he just woke up and is tired. Objective Data Date Time Temp Pulse Resp B/P (MAP) Pulse Ox O2 Delivery O2 Flow Rate FiO2 12/13/17 00:00 95.8 93 17 155/78 (103) 98 12/12/17 20:00 96.2 95 17 126/83 (97) 99 12/12/17 15:00 96.5 127 19 138/91 (107) 99 12/13/17 12/13/17 12/13/17 07:00 15:00 23:00 Intake Total 240 ml Balance 240 ml Result Diagram: 12/12/17 0535 12/12/17 0555 Administered Medications Medications (Trade) Dose Ordered Sig/Virgil Route PRN Reason Start Time Stop Time Status Last Admin Dose Admin Sodium Chloride (NS Flush) 2 ml UNSCH PRN IV FLUSH FLUSH AFTER USING IV ACCESS 11/30/17 17:30 12/10/17 22:59 Sodium Chloride (NS Flush) 2 ml BID IV FLUSH 11/30/17 21:00 12/13/17 08:51 Ceftriaxone Sodium 1000 mg/ Sodium Chloride 100 ml @ 200 mls/hr Q24H IV 12/01/17 17:00 12/12/17 16:39 Rifaximin (Xifaxan) 550 mg BID PO 11/30/17 21:00 12/13/17 08:49 Pantoprazole Sodium (Protonix) 40 mg DAILY PO 12/02/17 09:00 12/13/17 08:50 Oxycodone HCl (Roxicodone) 5 mg Q4H PRN PO PAIN SCALE 4 TO 10 12/01/17 18:15 12/13/17 07:21 Phytonadione (Mephyton Liq) 5 mg DAILY PO 12/02/17 09:00 12/13/17 08:50 Potassium Chloride (KCl) 20 meq BID PO 12/03/17 21:00 12/13/17 08:49 Hydroxyzine HCl (Atarax) 50 mg Q6H PRN PO itching 12/05/17 19:30 12/13/17 07:21 Cholestyramine Resin (Questran 4 Gm Pkt) 4 gm TIDAC PO 12/05/17 17:00 12/13/17 08:49 Pentoxifylline (TRENtal SR) 400 mg Q8H PO 12/06/17 08:00 12/13/17 08:50 Octreotide Acetate (SandoSTATIN INJ) 200 mcg Q8H SQ 12/06/17 08:00 12/13/17 08:50 Lactulose (Lactulose Liq) 30 ml QID PO 12/07/17 13:00 12/13/17 08:49 Sodium Bicarbonate (Sodium Bicarbonate) 650 mg Q8HR PO 12/07/17 22:00 12/13/17 04:56 Metronidazole (Flagyl) 500 mg Q6HR PO 12/08/17 18:00 12/13/17 04:56 Prednisolone (Orapred Odt) 40 mg DAILY PO 12/11/17 09:00 12/13/17 08:49 Midodrine (Proamatine) 2.5 mg TID@07,12,17 PO 12/10/17 17:00 12/13/17 04:56 Ondansetron HCl (Zofran Inj) 4 mg Q6HR PRN IV PUSH nausea 12/12/17 04:30 12/12/17 04:59 Folic Acid (Folate) 1 mg DAILY PO 12/13/17 09:00 12/13/17 08:50 Cholecalciferol (Vitamin D3) 1,000 units DAILY PO 12/13/17 09:00 12/13/17 08:49 Objective Remarks GENERAL: chronically ill appearing male, walking around room in [facility]. SKIN: Warm and dry. HEAD: Normocephalic. EYES: No injection or drainage. NECK: Supple, trachea midline. CARDIOVASCULAR: Regular rate and rhythm RESPIRATORY: Breath sounds equal bilaterally. No accessory muscle use. GASTROINTESTINAL: Abdomen distended, tight with ascites EXTREMITIES: No cyanosis. ble with edema NEUROLOGICAL: awake and alert. normal speech. moving extremities. Assessment/Plan Problem List: (1) Thrombocytopenia ICD Codes: D69.6 - Thrombocytopenia, unspecified Plan: --d/t liver cirrhosis. -will give B12 and folic acid to enhance hematopoiesis. (2) Leukocytosis ICD Codes: D72.829 - Elevated white blood cell count, unspecified Plan: --likely reactive, elevated CRP, ferritin --Workup for infectious etiology has been negative. Multiple cultures from , 11/29, 11/30 of peritoneal fluid has been negative. --no evidence of iron deficiency --pathologist smear review pending --flow cytometry pending. --bone marrow biopsy deferred for now as it will not change the acute management (3) Cirrhosis with alcoholism ICD Codes: K70.30 - Alcoholic cirrhosis of liver without ascites Status: Acute Assessment 37y/o male with leukocytosis, cirrhosis and liver disease. Alcoholic liver disease.Ascites. Cirrhosis. Hypoalbuminemia. Anasarca.Leukocytosis. Plan 1. await pathologist smear review and flow cytometry 2. continue supportive care. 3. monitor CBC Attending Statement The exam, history, and the medical decision-making described in the above note were completed with the assistance of the mid-level provider. I reviewed and agree with the findings presented. I attest that I had a [id number] encounter with the patient on the same day, and personally performed and documented my assessment and findings in the medical record. Resolved to stop drinking. Advised him that formal detox would help. He unfortunately plans to keep smoking, wants a cigarette badly. Pt reluctant to go home and be DC, admits easier to him not to drink in the hospital. Feels better after shower, R bag draining clear ascitic fluid, LE edema unchanged. Discussed pending smear and flow cytometry. OK for DC and follow as out pt from heme/onc perspective. Problem Qualifiers (1) Cirrhosis with alcoholism: Qualified Codes: K70.31 - Alcoholic cirrhosis of liver with ascites Silvina Underwood Dec 13, 2017 12:36 Carmenza Gutierrez MD Dec 13, 2017 19:54
[2017-12-13] MEDS: CYANOCOBALAMIN 100 MCG TAB PO SCH (12:44)
--- NOTE | 2017-12-13 14:14 | HHI.PR ---
Subjective Remarks Follow up liver failure. The patient states that he feels a little better today. Lower extremity swelling seems to be improving. Denies chest pain or dyspnea. Objective Vitals Vital Signs Date Time Temp Pulse Resp B/P (MAP) Pulse Ox O2 Delivery O2 Flow Rate FiO2 12/13/17 12:00 96.5 79 17 114/73 (87) 94 12/13/17 00:00 95.8 93 17 155/78 (103) 98 12/12/17 20:00 96.2 95 17 126/83 (97) 99 12/12/17 15:00 96.5 127 19 138/91 (107) 99 I/O 12/12/17 12/12/17 12/12/17 12/13/17 12/13/17 12/13/17 07:00 15:00 23:00 07:00 15:00 23:00 Intake Total 240 ml 1200 ml 240 ml Balance 240 ml 1200 ml 240 ml Intake Oral 240 ml 1200 ml 240 ml # Voids 6 6 3 # Bowel Movements 0 2 Result Diagram: 12/12/17 0535 12/12/17 0555 Imaging Last Impressions Cyst Biopsy Asp-Paracentesis US 12/09/17 0000 Signed Impressions: Service Date/Time: Saturday, December 09, 2017 14:45 - CONCLUSION: Uncomplicated ultrasound guided paracentesis. Eddie Monteiro MD Renal Ultrasound 12/03/17 0000 Signed Impressions: Service Date/Time: Sunday, December 03, 2017 15:27 - CONCLUSION: Kidneys are somewhat prominent in size but otherwise within normal limits. No focal mass or hydronephrosis identified. Felipe Luo MD Chest X-Ray 11/30/17 0000 Signed Impressions: Service Date/Time: Thursday, November 30, 2017 17:13 - CONCLUSION: No acute disease. Braden Akers Jr., MD Objective Remarks General: No acute distress. Jaundiced. HEENT: Scleral icterus noted. Heart: Regular rate and rhythm. No murmur. Lungs: Clear to auscultation bilaterally. No wheezes, rales, or rhonchi. Breathing is nonlabored. Abdomen: Soft, nontender, nondistended. Extremities: 3+ bilateral lower extremity edema, right greater than left. Psych: Alert and oriented. Procedures Paracenteses Urinary Catheter: No Vascular Central Line Catheter: No A/P Assessment and Plan 1. Liver failure, cirrhosis with ascites: Secondary to alcoholic liver disease. Status post paracentesis on 11/25/17, 12/02/17, and 12/09/17. Appreciate GI recommendations. Monitor LFTs. Continue oral steroids. 2. Acute on chronic kidney disease, hepatorenal syndrome: Appreciate nephrology recommendations. Continue octreotide. Hold Aldactone. 3. Hypokalemia, hypophosphatemia: Continue supplementation. 4. Leukocytosis: Continue Flagyl, Rocephin. Ascitic fluid cultures negative. 5. Hepatic encephalopathy: Continue lactulose. 6. Pruritus: Secondary to liver failure. Continue Atarax, cholestyramine. 7. Edema: Secondary to liver failure. Diuretics on hold secondary to renal failure. Keep legs elevated. Encourage ambulation. 8. DVT prophylaxis: SCDs. 9. Appreciate palliative care recommendations. Jorge Martell MD Dec 13, 2017 14:14
[2017-12-13 14:15] LABS: ALBUMIN 2.9 GM/DL (3.4-5.0); BICARBONATE 18.1 MEQ/L (21.0-32.0); CALCIUM 9.2 MG/DL (8.5-10.1); CREATININE 1.52 MG/DL (0.60-1.30); MAGNESIUM 1.9 MG/DL (1.5-2.5); PHOSPHORUS 1.9 MG/DL (2.5-4.9)
[2017-12-13 14:25] LABS: DIRECT BILIRUBIN ADULT 15.9 MG/DL (0.0-0.2); INDIRECT BILIRUBIN 7.1 MG/DL (0.0-0.8); TOTAL PROTEIN 6.4 GM/DL (6.4-8.2)
[2017-12-13] MEDS: cefTRIAXone INJ 1,000 MG in SODIUM CHLORIDE 0.9% INJ 100 ML IV SCH (16:16)
[2017-12-13 20:00] VITALS: BP 129/79; PULSE 88; RESP 18; TEMP 96.4; O2SAT 100
[2017-12-14] VITALS: BP 129/81; PULSE 84; RESP 18; TEMP 96.8; O2SAT 100
[2017-12-14] MEDS: SODIUM BICARBONATE 650 MG TAB PO SCH ×4 (01:46→23:24)
[2017-12-14] MEDS: PENTOXIFYLLINE 400 MG CONTROLLED RELEASE TAB PO SCH ×4 (01:46→23:24)
[2017-12-14] MEDS: metroNIDAZOLE 500 MG TAB PO SCH ×5 (01:47→23:25)
[2017-12-14] MEDS: OCTREOTIDE INJ 100 MCG/ML VIAL SQ SCH ×4 (01:47→23:25)
[2017-12-14] MEDS: hydrOXYzine HCL 25 MG TAB PO PRN ×2 (01:48→23:30)
[2017-12-14] MEDS: MIDODRINE 5 MG TAB PO SCH ×3 (04:35→16:35)
[2017-12-14 08:00] VITALS: BP 123/65; PULSE 89; RESP 16; TEMP 97.2; O2SAT 97
[2017-12-14] MEDS: PHYTONADIONE 5 MG/SWFI 5 ML ORAL SYR PO SCH (09:05)
[2017-12-14] MEDS: PANTOPRAZOLE SOD 40 MG DELAYED RELEASE TAB PO SCH (09:06)
[2017-12-14] MEDS: SODIUM CHLORIDE 0.9% FLUSH 10 ML FLUSH IV FLUSH SCH ×2 (09:06→23:25)
[2017-12-14] MEDS: LACTULOSE SYRUP 20 GM/30 ML CUP PO SCH ×4 (09:06→23:25)
[2017-12-14] MEDS: FOLIC ACID 1 MG TAB PO SCH (09:06)
[2017-12-14] MEDS: CHOLECALCIFEROL (VIT D3) 1000 UNIT TAB PO SCH (09:06)
[2017-12-14] MEDS: prednisoLONE 10 MG ODT TAB PO SCH (09:07)
[2017-12-14] MEDS: CHOLESTYRAMINE 4 GM PACKET PO SCH ×3 (09:07→16:36)
[2017-12-14] MEDS: CYANOCOBALAMIN 100 MCG TAB PO SCH (09:07)
[2017-12-14] MEDS: POTASSIUM CHLORIDE 10 MEQ CAP PO SCH ×2 (09:07→23:24)
[2017-12-14] MEDS: RIFAXIMIN 550 MG TAB PO SCH ×2 (09:07→23:24)
[2017-12-14] MEDS ORDERED: MIDO5TAB PO (11:47)
[2017-12-14] MEDS ORDERED: OCTREOTIDE SQ (11:47)
[2017-12-14] MEDS ORDERED: CYAN100 PO (11:47)
[2017-12-14] MEDS ORDERED: FOLI1TAB6 PO (11:47)
[2017-12-14] MEDS ORDERED: XIFA550T4 PO (11:47)
[2017-12-14] MEDS ORDERED: POTA10CA PO (11:47)
[2017-12-14] MEDS ORDERED: PHYT5TAB2 PO (11:47)
[2017-12-14] MEDS ORDERED: PANT40TA3 PO (11:47)
[2017-12-14] MEDS ORDERED: LACT10SO PO (11:47)
[2017-12-14] MEDS ORDERED: OXYC-392 PO (11:47)
[2017-12-14] MEDS ORDERED: CHOL1000 PO (11:47)
[2017-12-14] MEDS ORDERED: SODI650T PO (11:47)
[2017-12-14] MEDS ORDERED: PENT400T PO (11:47)
[2017-12-14] MEDS ORDERED: HYDR-3133 PO (11:47)
[2017-12-14] MEDS ORDERED: PRED1TAB72 PO (11:47)
[2017-12-14] MEDS ORDERED: CHOL4POW4 PO (11:47)
[2017-12-14 11:53] LABS: AUTOMATED NEUTROPHIL # 29.3 TH/MM3 (1.8-7.7); BASOPHIL # 0.3 TH/MM3 (0-0.2); BASOPHIL % 0.9 % (0.0-2.0); EOSINOPHIL # 0.4 TH/MM3 (0-0.4); EOSINOPHIL % 1.2 % (0.0-4.0); HEMATOCRIT 32.2 % (39.0-51.0); LYMPH % 3.7 % (9.0-44.0); LYMPHOCYTE # 1.2 TH/MM3 (1.0-4.8); MEAN CELL VOLUME 102.9 FL (80.0-100.0); MEAN CORPUSCULAR HGB CONC 34.1 % (32.0-36.0); MEAN PLATELET VOLUME 8.4 FL (7.0-11.0); MONO % 5.4 % (0.0-8.0); MONOCYTE # 1.8 TH/MM3 (0-0.9); NEUT % 88.8 % (16.0-70.0); PLATELET COUNT 77 TH/MM3 (150-450); RED BLOOD COUNT 3.12 MIL/MM3 (4.50-5.90); RETIC # 65.7 MIL/L (20.0-150.0); RETIC % 2.1 % (0.4-3.0); WHITE BLOOD COUNT 32.9 TH/MM3 (4.0-11.0)
[2017-12-14 12:00] VITALS: BP 133/78; PULSE 90; RESP 15; TEMP 96.3; O2SAT 97
[2017-12-14 12:26] LABS: ALBUMIN 2.6 GM/DL (3.4-5.0); ALKALINE PHOSPHATASE 134 U/L (45-117); ALT (GPT) 44 U/L (12-78); AST (GOT) 62 U/L (15-37); BICARBONATE 17.6 MEQ/L (21.0-32.0); BLOOD UREA NITROGEN 29 MG/DL (7-18); CALCIUM 8.7 MG/DL (8.5-10.1); CHLORIDE 108 MEQ/L (98-107); GLOMERULAR FILTRATION RATE 53 ML/MIN (>89); GLUCOSE,RANDOM 101 MG/DL (74-106); SODIUM (NA) 138 MEQ/L (136-145); TOTAL BILIRUBIN ADULT 22.5 MG/DL (0.2-1.0)
[2017-12-14 12:33] LABS: CREATININE 1.48 MG/DL (0.60-1.30); TOTAL PROTEIN 5.8 GM/DL (6.4-8.2)
[2017-12-14 12:46] LABS: BANDS 4 % (0-6); LYMPHOCYTES 2 % (9-44); METAMYELOCYTES 1 % (0-1); MONOCYTES 2 % (0-8); NEUTROPHIL # MANUAL DIFF 31.6 TH/MM3 (1.8-7.7); POLYS (SEG NEUTROPHILS) 91 % (16-70)
[2017-12-14 12:47] LABS: ACANTHOCYTES OCC (NORMAL)
--- NOTE | 2017-12-14 13:05 | HHI.PR ---
Subjective Remarks Follow-up liver failure. Patient states that he wants to go home today. Still having significant lower extremity swelling. No chest pain or dyspnea. Objective Vitals Vital Signs Date Time Temp Pulse Resp B/P (MAP) Pulse Ox O2 Delivery O2 Flow Rate FiO2 12/14/17 12:00 96.3 90 15 133/78 (96) 97 12/14/17 08:00 97.2 89 16 123/65 (84) 97 12/14/17 00:00 96.8 84 18 129/81 (97) 100 12/13/17 20:00 96.4 88 18 129/79 (96) 100 I/O 12/13/17 12/13/17 12/13/17 12/14/17 12/14/17 12/14/17 07:00 15:00 23:00 07:00 15:00 23:00 Intake Total 240 ml 1100 ml Output Total 200 ml 25 ml Balance 240 ml 900 ml -25 ml Intake Oral 240 ml 1100 ml Drainage Total 200 ml 25 ml # Voids 3 5 # Bowel Movements 3 Result Diagram: 12/14/17 1127 12/14/17 1127 Imaging Last Impressions Cyst Biopsy Asp-Paracentesis US 12/09/17 0000 Signed Impressions: Service Date/Time: Saturday, December 09, 2017 14:45 - CONCLUSION: Uncomplicated ultrasound guided paracentesis. Eddie Monteiro MD Renal Ultrasound 12/03/17 0000 Signed Impressions: Service Date/Time: Sunday, December 03, 2017 15:27 - CONCLUSION: Kidneys are somewhat prominent in size but otherwise within normal limits. No focal mass or hydronephrosis identified. Felipe Luo MD Chest X-Ray 11/30/17 0000 Signed Impressions: Service Date/Time: Thursday, November 30, 2017 17:13 - CONCLUSION: No acute disease. Braden Akers Jr., MD Objective Remarks General: No acute distress. Jaundiced. HEENT: Scleral icterus noted. Heart: Regular rate and rhythm. No murmur. Lungs: Clear to auscultation bilaterally. No wheezes, rales, or rhonchi. Breathing is nonlabored. Abdomen: Soft, nontender, nondistended. Extremities: 3+ bilateral lower extremity edema, right greater than left. Psych: Alert and oriented. Procedures Paracenteses Urinary Catheter: No Vascular Central Line Catheter: No A/P Assessment and Plan 1. Liver failure, cirrhosis with ascites: Secondary to alcoholic liver disease. Status post paracentesis on 11/25/17, 12/02/17, and 12/09/17. Appreciate GI recommendations. Monitor LFTs. Continue oral steroids. 2. Acute on chronic kidney disease, hepatorenal syndrome: Appreciate nephrology recommendations. Continue octreotide. Aldactone discontinued. 3. Hypokalemia, hypophosphatemia: Continue supplementation. Potassium is significantly lower today. Add IV potassium supplementation today. 4. Leukocytosis: Continue Flagyl, Rocephin. Ascitic fluid cultures negative. 5. Hepatic encephalopathy: Continue lactulose. 6. Pruritus: Secondary to liver failure. Continue Atarax, cholestyramine. 7. Edema: Secondary to liver failure. Diuretics on hold secondary to renal failure. Keep legs elevated. Encourage ambulation. 8. DVT prophylaxis: SCDs. 9. Appreciate palliative care recommendations. Discharge Planning Discharge home when serum potassium has improved. Jorge Martell MD Dec 14, 2017 13:05
--- NOTE | 2017-12-14 13:16 | HHI.DCPOC ---
Discharge Care Plan Diagnosis: (1) Thrombocytopenia (2) Portal hypertension (3) Hepatorenal syndrome (4) Leukocytosis (5) Hypoalbuminemia (6) Acute renal insufficiency (7) Ascites (8) Acidosis (9) Hypokalemia (10) Cirrhosis with alcoholism (11) Hypokalemia (12) Chronic alcohol use (13) Pruritus (14) Hyperammonemia (15) Pain, generalized (16) Portosystemic shunt, spontaneous Goals to Promote Your Health * To prevent worsening of your condition and complications * To maintain your health at the optimal level Directions to Meet Your Goals Take your medications as prescribed Follow your dietary instruction Follow activity as directed Keep your appointments as scheduled Take your immunizations and boosters as scheduled If your symptoms worsen call your PCP, if no PCP go to Urgent Care Center or Emergency Room Smoking is Dangerous to Your Health. Avoid second hand smoke Call the 24-hour hour crisis hotline for domestic abuse at Jorge Martell MD Dec 14, 2017 13:16
[2017-12-14] MEDS: POTASSIUM CHLOR 10 MEQ PREMIX 100 ML IV SCH ×4 (13:44→17:23)
[2017-12-14 16:00] VITALS: BP 124/76; PULSE 91; RESP 17; TEMP 96.2; O2SAT 99
[2017-12-14] MEDS: cefTRIAXone INJ 1,000 MG in SODIUM CHLORIDE 0.9% INJ 100 ML IV SCH (16:37)
[2017-12-14 20:00] VITALS: BP 133/82; PULSE 88; RESP 22; TEMP 96.1; O2SAT 99
[2017-12-14 22:16] LABS: MAGNESIUM 1.7 MG/DL (1.5-2.5)
[2017-12-15] VITALS: BP 129/82; PULSE 92; RESP 22; TEMP 97; O2SAT 98
[2017-12-15] MEDS: metroNIDAZOLE 500 MG TAB PO SCH ×2 (05:23→12:00)
[2017-12-15] MEDS: SODIUM BICARBONATE 650 MG TAB PO SCH (05:24)
[2017-12-15] MEDS: MIDODRINE 5 MG TAB PO SCH ×2 (05:24→11:59)
[2017-12-15 06:43] LABS: BICARBONATE 16.4 MEQ/L (21.0-32.0); CALCIUM 8.5 MG/DL (8.5-10.1); CREATININE 1.24 MG/DL (0.60-1.30); MAGNESIUM 1.7 MG/DL (1.5-2.5)
[2017-12-15] MEDS ORDERED: POTASSIUM CHLORIDE 10 MEQ CONTROLLED RELEASE TAB PO ONE (07:45)
[2017-12-15 08:00] VITALS: BP 133/83; PULSE 105; RESP 20; TEMP 97.8; O2SAT 98
[2017-12-15] MEDS: prednisoLONE 10 MG ODT TAB PO SCH (08:38)
[2017-12-15] MEDS: POTASSIUM CHLORIDE 10 MEQ CAP PO SCH (08:38)
[2017-12-15] MEDS: OCTREOTIDE INJ 100 MCG/ML VIAL SQ SCH (08:38)
[2017-12-15] MEDS: PENTOXIFYLLINE 400 MG CONTROLLED RELEASE TAB PO SCH (08:38)
[2017-12-15] MEDS: LACTULOSE SYRUP 20 GM/30 ML CUP PO SCH ×2 (08:38→11:59)
[2017-12-15] MEDS: SODIUM CHLORIDE 0.9% FLUSH 10 ML FLUSH IV FLUSH SCH (08:39)
[2017-12-15] MEDS: PANTOPRAZOLE SOD 40 MG DELAYED RELEASE TAB PO SCH (08:39)
[2017-12-15] MEDS: FOLIC ACID 1 MG TAB PO SCH (08:39)
[2017-12-15] MEDS: CHOLESTYRAMINE 4 GM PACKET PO SCH ×2 (08:39→11:59)
[2017-12-15] MEDS: PHYTONADIONE 5 MG/SWFI 5 ML ORAL SYR PO SCH (08:39)
[2017-12-15] MEDS: CHOLECALCIFEROL (VIT D3) 1000 UNIT TAB PO SCH (08:39)
[2017-12-15] MEDS: CYANOCOBALAMIN 100 MCG TAB PO SCH (08:39)
[2017-12-15] MEDS: RIFAXIMIN 550 MG TAB PO SCH (08:43)
[2017-12-15] MEDS ORDERED: MAGNESIUM OXIDE 400 MG TAB PO SCH (09:00)
--- NOTE | 2017-12-15 09:14 | HHI.DS ---
Discharge Summary Admission Date Nov 30, 2017 at 17:22 Discharge Date: Dec 15, 2017 Admitting Diagnosis Liver Failure, Leukocytosis, R/o bacterial peritonitis. (1) Pruritus ICD Code: L29.9 - Pruritus, unspecified (2) Hyperammonemia ICD Code: E72.20 - Disorder of urea cycle metabolism, unspecified Status: Acute (3) Pain, generalized ICD Code: R52 - Pain, unspecified (4) Portosystemic shunt, spontaneous ICD Code: I99.8 - Other disorder of circulatory system Status: Acute (5) Cirrhosis with alcoholism ICD Code: K70.30 - Alcoholic cirrhosis of liver without ascites Status: Acute (6) Hypokalemia ICD Code: E87.6 - Hypokalemia (7) Acidosis ICD Code: E87.2 - Acidosis (8) Ascites ICD Code: R18.8 - Other ascites (9) Acute renal insufficiency ICD Code: N28.9 - Disorder of kidney and ureter, unspecified (10) Hypoalbuminemia ICD Code: E88.09 - Other disorders of plasma-protein metabolism, not elsewhere classified (11) Leukocytosis ICD Code: D72.829 - Elevated white blood cell count, unspecified (12) Hepatorenal syndrome ICD Code: K76.7 - Hepatorenal syndrome (13) Portal hypertension ICD Code: K76.6 - Portal hypertension Status: Chronic (14) Thrombocytopenia ICD Code: D69.6 - Thrombocytopenia, unspecified (15) Chronic alcohol use ICD Code: Z72.89 - Other problems related to lifestyle Status: Chronic (16) Hypokalemia ICD Code: E87.6 - Hypokalemia Status: Acute Procedures Paracenteses Brief History - From Admission hx from patient, ER MD communication and review of med records signed out ama yesterday and came back today pt was under DR Hunter's service yesterday- however, when ER MD called for Dr Hunter today for admission vs discharge, his nurse has reported he would no longer see this patient as he signed out ama several times? thus admission was given to us. pt himself reported he "freaked out" after learning severity of his disease from different people during his hospitalization and thus signed out ama but returned back as he continued to have severe itching and pain pain is at abdomen with distention from ascites had paracentesis during his hospital stay denies fever at home before his oct visit here, never been hospitalized, never knew of his liver dx - according to patient moaning in pain all the time at home notes from last admission reviewed CBC/BMP: 12/14/17 1127 12/15/17 0437 Significant Findings Laboratory Tests Test 12/13/17 12:25 12/14/17 11:27 12/14/17 21:15 12/15/17 04:37 Blood Urea Nitrogen 29 MG/DL (7-18) 29 MG/DL (7-18) 25 MG/DL (7-18) Creatinine 1.52 MG/DL (0.60-1.30) 1.48 MG/DL (0.60-1.30) Albumin 2.9 GM/DL (3.4-5.0) 2.6 GM/DL (3.4-5.0) Phosphorus Level 1.9 MG/DL (2.5-4.9) Alkaline Phosphatase 151 U/L (45-117) 134 U/L (45-117) Aspartate Amino Transf (AST/SGOT) 59 U/L (15-37) 62 U/L (15-37) Total Bilirubin 23.0 MG/DL (0.2-1.0) 22.5 MG/DL (0.2-1.0) Direct Bilirubin 15.9 MG/DL (0.0-0.2) Carbon Dioxide Level 18.1 MEQ/L (21.0-32.0) 17.6 MEQ/L (21.0-32.0) 16.4 MEQ/L (21.0-32.0) Estimat Glomerular Filtration Rate 51 ML/MIN (>89) 53 ML/MIN (>89) 65 ML/MIN (>89) Indirect Bilirubin 7.1 MG/DL (0.0-0.8) White Blood Count 32.9 TH/MM3 (4.0-11.0) Red Blood Count 3.12 MIL/MM3 (4.50-5.90) Hemoglobin 11.0 GM/DL (13.0-17.0) Hematocrit 32.2 % (39.0-51.0) Mean Corpuscular Volume 102.9 FL (80.0-100.0) Mean Corpuscular Hemoglobin 35.0 PG (27.0-34.0) Platelet Count 77 TH/MM3 (150-450) Neutrophils (%) (Auto) 88.8 % (16.0-70.0) Lymphocytes (%) (Auto) 3.7 % (9.0-44.0) Neutrophils # (Auto) 29.3 TH/MM3 (1.8-7.7) Monocytes # (Auto) 1.8 TH/MM3 (0-0.9) Basophils # (Auto) 0.3 TH/MM3 (0-0.2) Neutrophils % (Manual) 91 % (16-70) Lymphocytes % 2 % (9-44) Neutrophils # (Manual) 31.6 TH/MM3 (1.8-7.7) Platelet Estimate LOW (NORMAL) Total Protein 5.8 GM/DL (6.4-8.2) Potassium Level 2.9 MEQ/L (3.5-5.1) 3.3 MEQ/L (3.5-5.1) 3.1 MEQ/L (3.5-5.1) Chloride Level 108 MEQ/L (98-107) 111 MEQ/L (98-107) Ammonia LESS THAN 10 MCMOL/L Random Glucose 109 MG/DL (74-106) Imaging Last Impressions Cyst Biopsy Asp-Paracentesis US 12/09/17 0000 Signed Impressions: Service Date/Time: Saturday, December 09, 2017 14:45 - CONCLUSION: Uncomplicated ultrasound guided paracentesis. Eddie Monteiro MD Renal Ultrasound 12/03/17 0000 Signed Impressions: Service Date/Time: Sunday, December 03, 2017 15:27 - CONCLUSION: Kidneys are somewhat prominent in size but otherwise within normal limits. No focal mass or hydronephrosis identified. Felipe Luo MD Chest X-Ray 11/30/17 0000 Signed Impressions: Service Date/Time: Thursday, November 30, 2017 17:13 - CONCLUSION: No acute disease. Barden Akers Jr., MD PE at Discharge General: No acute distress. Jaundiced. HEENT: Scleral icterus noted. Heart: Regular rate and rhythm. No murmur. Lungs: Clear to auscultation bilaterally. No wheezes, rales, or rhonchi. Breathing is nonlabored. Abdomen: Soft, nontender, nondistended. Extremities: 3+ bilateral lower extremity edema, right greater than left. Psych: Alert and oriented. Pt update on day of discharge The patient states that he still feels a little weak. He denies pain currently. Still with significant lower extremity edema. Hospital Course The patient was admitted for management of liver failure, possible spontaneous bacterial peritonitis. Infectious disease was consulted. The patient was continued on antibiotics. Palliative care was consulted for assistance with symptom management and clarification of goals of care. Gastroenterology was consulted. The patient's medications were adjusted. Patient had worsening renal function. Nephrology was consulted. Patient was diagnosed with hepatorenal syndrome. He was continued on IV albumin. He was given somatostatin and Midrin. The patient did have improvement of his creatinine throughout the hospitalization. He had hypokalemia, and potassium was supplemented. Hematology/oncology was consulted. Arrangements were made for self administration of outpatient octreotide. The patient was felt to be stable for discharge home home health care. He was advised to have a basic metabolic panel checked the day following discharge. Case management was consulted to assist with arranging medications. Pt Condition on Discharge: Stable Discharge Disposition: Disch w/ Home Health Serv Discharge Time: > 30 minutes Discharge Instructions DIET: Follow Instructions for: Heart Healthy Diet Activities you can perform: Regular-No Restrictions Follow up Referrals: Gastroenterology - 1 Week with Arely Patel MD Nephrology - 1 Week with Daljit Coronado MD Oncology - 1 Week with Carmenza Gutierrez MD PCP Follow-up - 1 Week New Orders: BASIC METABOLIC PROF - 12/16/17 New Medications: Lactulose Liq (Lactulose Liq) 10 Gm/15 Ml Soln 30 ML PO Q6H PRN for Liver failure for 30 Days, #3600 ML 0 Refills Phytonadione (Mephyton) 5 Mg Tab 5 MG PO DAILY for Liver failure, #30 TAB 0 Refills Cholecalciferol (Gnp Vitamin D3 Extra Stre) 1,000 Unit Tab 1000 UNITS PO DAILY for Nutritional Supplement, #30 TAB 0 Refills Cholestyramine (Cholestyramine) 4 Gm/Pkt Powd 4 GM PO TIDAC for liver failure, #90 PKT 0 Refills 1 packet contains 4 grams of cholestyramine. Cyanocobalamin (Vitamin B12) 100 Mcg Tab 100 MCG PO DAILY for Nutritional Supplement, #30 TAB 0 Refills Folic Acid (Folic Acid) 1 Mg Tablet 1 MG PO DAILY for Nutritional Supplement, #30 TAB 0 Refills Hydroxyzine HCl (Hydroxyzine HCl) 25 Mg Tab 50 MG PO Q6H PRN for itching, #15 TAB 0 Refills Midodrine (Midodrine) 5 Mg Tab 2.5 MG PO TID@07,12,17 for Blood Pressure Management, #90 TAB 0 Refills Oxycodone (Oxycodone) 5 Mg Tab 5 MG PO Q4H PRN for PAIN SCALE 4 TO 10, #20 TAB 0 Refills Pantoprazole (Pantoprazole) 40 Mg Tab 40 MG PO DAILY for Reflux, #30 TAB 0 Refills Pentoxifylline ER (Pentoxifylline ER) 400 Mg Tab 400 MG PO Q8H for hepatitis, #90 TAB 0 Refills Potassium Chloride ER (Potassium Chloride ER) 10 Meq Cap 20 MEQ PO BID for Nutritional Supplement, #60 CAP Prednisolone Odt (Prednisolone Odt) 10 Mg Tab 40 MG PO DAILY for Inflammation, #30 TAB 0 Refills Do not stop suddenly. Needs to be tapered off. Rifaximin (Xifaxan) 550 Mg Tab 550 MG PO BID for Liver failure, #60 TAB 0 Refills Sodium Bicarbonate (Sodium Bicarbonate) 650 Mg Tab 650 MG PO Q8HR for Nutritional Supplement, #90 TAB 0 Refills [Octreotide Inj] () 100 MCG/ML INJ 200 MCG SQ Q8H for Liver failure, #90 INJECTION 0 Refills Discontinued Medications: Potassium Chloride ER (Potassium Chloride ER) 10 Meq Cap 10 MEQ PO BID for Electrolyte Replacement, #60 CAP 0 Refills Jorge Martell MD Dec 15, 2017 09:14
== END 2017-12-15 14:02 | disposition home health service (06) | DRG 432 ==
LOC: NEPE 15:46 → NEDA 17:22 → NEDH 22:03 → N07A 12-01 16:41
PROVIDERS: ADMIT Family Medicine; ATTEND Family Medicine
PROC: 0W9G3ZX Drainage of Peritoneal Cavity, Percutaneous Approach, Diagnostic (ICD-10-PCS; principal; 2017-12-02)
PROC: 0W9G3ZZ Drainage of Peritoneal Cavity, Percutaneous Approach (ICD-10-PCS; 2017-12-09)
DX: K70.31 Alcoholic cirrhosis of liver with ascites (principal); K65.2 Spontaneous bacterial peritonitis; K76.7 Hepatorenal syndrome; N17.9 Acute kidney failure, unspecified; K85.90 Acute pancreatitis without necrosis or infection, unspecified; D68.9 Coagulation defect, unspecified; E87.2 Acidosis; K76.6 Portal hypertension; D69.6 Thrombocytopenia, unspecified; E83.39 Other disorders of phosphorus metabolism; E87.6 Hypokalemia; N18.9 Chronic kidney disease, unspecified; L29.8 Other pruritus; R52 Pain, unspecified; F17.210 Nicotine dependence, cigarettes, uncomplicated; D64.9 Anemia, unspecified; F10.20 Alcohol dependence, uncomplicated; E55.9 Vitamin D deficiency, unspecified; E88.09 Other disorders of plasma-protein metabolism, not elsewhere classified; K70.11 Alcoholic hepatitis with ascites; K72.10 Chronic hepatic failure without coma; Z91.19 Patient's noncompliance with other medical treatment and regimen
CPT/HCPCS: 49083; 71045; 76775; 76937; 80048; 80053; 80069; 80076; 80307; 81001; 82042; 82140; 82150; 82306; 82550; 82607; 82945; 83605; 83615; 83690; 83735; 83970; 84100; 84132; 84157; 84300; 85007; 85027; 85044; 85610; 85730; 86160; 87040; 87070; 87205; 88112; 89051; C1729; J0696; J2354; J2405; J2930; J3480; J7030; J7050; J7510; P9047

== ENCOUNTER → 2017-12-16 | Outpatient (CLI) | payer OTHER ==
[~2017-12-16] MED LIST changes: +CHOL1000 PO; +CHOL4POW4 PO; +CYAN100 PO; +FOLI1TAB6 PO; +HYDR-3133 PO; +LACT10SO PO; +MIDO5TAB PO; +OCTREOTIDE SQ; +OXYC-392 PO; +PANT40TA3 PO; +PENT400T PO; +PHYT5TAB2 PO; +PRED1TAB72 PO; +SODI650T PO; +XIFA550T4 PO
[2017-12-16 14:57] LABS: CALCIUM 8.7 MG/DL (8.5-10.1); CREATININE 1.51 MG/DL (0.60-1.30)
== END ==
LOC: CLAB 13:53
PROVIDERS: ATTEND Family Medicine
DX: E87.6 Hypokalemia (principal)
CPT/HCPCS: 36415; 80048

== ENCOUNTER → 2017-12-21 | Outpatient (CLI) | payer OTHER ==
[~2017-12-21] MED LIST changes: +INVE3TAB2 PO
[2017-12-21 12:09] LABS: HEMATOCRIT 33.1 % (39.0-51.0); HEMOGLOBIN 11.3 GM/DL (13.0-17.0); MEAN CELL VOLUME 103.3 FL (80.0-100.0); MEAN CORPUSCULAR HEMOGLOBIN 35.2 PG (27.0-34.0); MEAN CORPUSCULAR HGB CONC 34.1 % (32.0-36.0); MEAN PLATELET VOLUME 8.8 FL (7.0-11.0); PLATELET COUNT 212 TH/MM3 (150-450); RED BLOOD COUNT 3.21 MIL/MM3 (4.50-5.90); RED CELL DISTRIBUTION WIDTH 16.9 % (11.6-17.2); WHITE BLOOD COUNT 26.3 TH/MM3 (4.0-11.0)
[2017-12-21 12:23] LABS: BACTERIA, URINE RARE /hpf; BILIRUBIN, URINE LARGE (NEG); BLOOD, URINE NEG (NEG); GLUCOSE,URINE NEG (NEG); HYALINE CAST, URINE 60 /lpf (RARE); KETONE, URINE NEG (NEG); MUCUS URINE FEW /lpf (OCC); NITRITE,URINE NEG (NEG); URINE LEUKOCYTE ESTERASE TRACE (NEG)
[2017-12-21 12:25] LABS: URINE COLOR DARK-BROWN (YELLW/STRAW)
[2017-12-21 12:53] LABS: ALBUMIN 2.5 GM/DL (3.4-5.0); BICARBONATE 20.3 MEQ/L (21.0-32.0); CALCIUM 8.7 MG/DL (8.5-10.1); PHOSPHORUS 1.7 MG/DL (2.5-4.9)
[2017-12-21 13:00] LABS: CREATININE 1.45 MG/DL (0.60-1.30)
== END ==
LOC: CLAB 11:50
PROVIDERS: ATTEND Internal Medicine Nephrology
DX: N28.9 Disorder of kidney and ureter, unspecified (principal); E87.2 Acidosis; D72.829 Elevated white blood cell count, unspecified
CPT/HCPCS: 36415; 80069; 81001; 85027

== ENCOUNTER 2017-12-22 23:58 | Observation (INO) | payer OTHER ==
[~2017-12-22 23:58] MED LIST changes: -INVE3TAB2 PO
[2017-12-23] MEDS ORDERED: HALOPERIDOL LACTATE 5 MG/ML AMP ONE (00:27)
[2017-12-23 00:34] VITALS: BP 121/80; PULSE 86; RESP 18; TEMP 97.9; O2SAT 98
[2017-12-23] MEDS ORDERED: HALOPERIDOL LACTATE 5 MG/ML AMP IM ONE (00:45)
[2017-12-23 01:02] LABS: AUTOMATED NEUTROPHIL # 24.9 TH/MM3 (1.8-7.7); EOSINOPHIL # 0.1 TH/MM3 (0-0.4); EOSINOPHIL % 0.4 % (0.0-4.0); HEMATOCRIT 30.4 % (39.0-51.0); HEMOGLOBIN 10.6 GM/DL (13.0-17.0); LYMPH % 3.1 % (9.0-44.0); LYMPHOCYTE # 0.8 TH/MM3 (1.0-4.8); MEAN CELL VOLUME 102.6 FL (80.0-100.0); MEAN CORPUSCULAR HEMOGLOBIN 35.8 PG (27.0-34.0); MEAN CORPUSCULAR HGB CONC 34.9 % (32.0-36.0); MEAN PLATELET VOLUME 8.8 FL (7.0-11.0); MONO % 5.3 % (0.0-8.0); MONOCYTE # 1.4 TH/MM3 (0-0.9); NEUT % 91.2 % (16.0-70.0); PLATELET COUNT 203 TH/MM3 (150-450); RED BLOOD COUNT 2.96 MIL/MM3 (4.50-5.90); RED CELL DISTRIBUTION WIDTH 17.7 % (11.6-17.2); WHITE BLOOD COUNT 27.3 TH/MM3 (4.0-11.0)
[2017-12-23 01:29] LABS: ALBUMIN 2.6 GM/DL (3.4-5.0); ALKALINE PHOSPHATASE 160 U/L (45-117); ALT (GPT) 98 U/L (12-78); AST (GOT) 113 U/L (15-37); BICARBONATE 18.4 MEQ/L (21.0-32.0); BLOOD UREA NITROGEN 19 MG/DL (7-18); CALCIUM 8.7 MG/DL (8.5-10.1); CHLORIDE 115 MEQ/L (98-107); CREATININE 1.56 MG/DL (0.60-1.30); GLOMERULAR FILTRATION RATE 50 ML/MIN (>89); GLUCOSE,RANDOM 163 MG/DL (74-106); SODIUM (NA) 143 MEQ/L (136-145); TOTAL BILIRUBIN ADULT 22.6 MG/DL (0.2-1.0); TOTAL PROTEIN 6.3 GM/DL (6.4-8.2)
--- NOTE | 2017-12-23 02:10 | PD ---
HPI Chief Complaint: Medical Clearance Time Seen by Provider: 00:32 Travel History International Travel<30 days: No Contact w/Intl Traveler<30days: No Traveled to known affect area: No History of Present Illness HPI Patient is a recent diagnosis of cirrhosis and liver failure, left AMA several times, is brought in by his parents for concern for erratic aggressive behavior. They are worried that his ammonia may be high. Patient is unwilling or unable to provide any history. History is obtained entirely from parents and from medical record. Family states the patient has been compliant with his medications including his lactulose and his rifaximin. The report that despite this is gotten progressively more confused, aggressive, and childlike in his behavior. History Past Medical History Narrative Medical Liver cirrhosis Social History Alcohol Use: No Tobacco Use: Yes (09/29 PPD) Allergies-Medications (Allergen,Severity, Reaction): Coded Allergies: No Known Allergies (Verified , 11/24/17) Reported Meds & Prescriptions Reported Meds & Active Scripts Active Lactulose Liq (Lactulose) 10 Gm/15 Ml Soln 30 Ml PO Q6H PRN 30 Days Mephyton (Phytonadione) 5 Mg Tab 5 Mg PO DAILY [Octreotide Inj] 100 MCG/ML Inj 200 Mcg SQ Q8H Gnp Vitamin D3 Extra Stre (Cholecalciferol) 1,000 Unit Tab 1,000 Units PO DAILY Folic Acid 1 Mg Tablet 1 Mg PO DAILY Vitamin B12 (Cyanocobalamin) 100 Mcg Tab 100 Mcg PO DAILY Prednisolone Odt 10 Mg Tab 40 Mg PO DAILY Do not stop suddenly. Needs to be tapered off. Sodium Bicarbonate 650 Mg Tab 650 Mg PO Q8HR Pantoprazole (Pantoprazole Sodium) 40 Mg Tab 40 Mg PO DAILY Hydroxyzine HCl 25 Mg Tab 50 Mg PO Q6H PRN Oxycodone (Oxycodone HCl) 5 Mg Tab 5 Mg PO Q4H PRN Cholestyramine 4 Gm/Pkt Powd 4 Gm PO TIDAC 1 packet contains 4 grams of cholestyramine. Pentoxifylline ER (Pentoxifylline) 400 Mg Tab 400 Mg PO Q8H Potassium Chloride ER (Potassium Chloride) 10 Meq Cap 20 Meq PO BID Midodrine 5 Mg Tab 2.5 Mg PO TID@07,12,17 Xifaxan (Rifaximin) 550 Mg Tab 550 Mg PO BID Review of Systems Except as stated in HPI: all other systems reviewed are Neg Physical Exam Narrative GENERAL: 37-year-old man, initially seen in the waiting room, sitting, facing some, asking for his keys, unwilling to answer any questions. SKIN: Focused skin assessment warm/dry. HEAD: Atraumatic. Normocephalic. EYES: Pupils equal and round. No scleral icterus. No injection or drainage. ENT: No nasal bleeding or discharge. Mucous membranes pink and moist. NECK: Trachea midline. No JVD. CARDIOVASCULAR: Regular rate and rhythm. No murmur appreciated. RESPIRATORY: No accessory muscle use. Clear to auscultation. Breath sounds equal bilaterally. GASTROINTESTINAL: Abdomen soft, non-tender, nondistended. Hepatic and splenic margins not palpable. MUSCULOSKELETAL: No obvious deformities. No clubbing. No cyanosis. No edema. NEUROLOGICAL: Awake and alert. No obvious cranial nerve deficits. Motor grossly within normal limits. Normal speech. PSYCHIATRIC: A little bit paranoid and hostile, not very directable. Does not appear to make sense in all of his thinking and his reasoning. Data Data Last Documented VS Vital Signs Date Time Temp Pulse Resp B/P (MAP) Pulse Ox O2 Delivery O2 Flow Rate FiO2 12/23/17 00:34 97.9 86 18 121/80 (94) 98 Orders Orders Haloperidol Inj (Haldol Inj) (12/23/17 00:27) Complete Blood Count With Diff (12/23/17 00:32) Comprehensive Metabolic Panel (12/23/17 00:32) Ammonia (12/23/17 00:32) Iv Access Insert/Monitor (12/23/17 00:32) Haloperidol Inj (Haldol Inj) (12/23/17 00:45) Iv Access Insert/Monitor (12/23/17 00:32) Restraints Violent (12/23/17 00:32) Alcohol (Ethanol) (12/23/17 01:15) Act Partial Throm Time (Ptt) (12/23/17 01:58) Prothrombin Time / Inr (Pt) (12/23/17 01:58) Admit Order (Ed Use Only) (12/23/17 ) Labs Laboratory Tests Test 12/23/17 00:40 12/23/17 02:10 White Blood Count 27.3 TH/MM3 Red Blood Count 2.96 MIL/MM3 Hemoglobin 10.6 GM/DL Hematocrit 30.4 % Mean Corpuscular Volume 102.6 FL Mean Corpuscular Hemoglobin 35.8 PG Mean Corpuscular Hemoglobin Concent 34.9 % Red Cell Distribution Width 17.7 % Platelet Count 203 TH/MM3 Mean Platelet Volume 8.8 FL Neutrophils (%) (Auto) 91.2 % Lymphocytes (%) (Auto) 3.1 % Monocytes (%) (Auto) 5.3 % Eosinophils (%) (Auto) 0.4 % Basophils (%) (Auto) 0.0 % Neutrophils # (Auto) 24.9 TH/MM3 Lymphocytes # (Auto) 0.8 TH/MM3 Monocytes # (Auto) 1.4 TH/MM3 Eosinophils # (Auto) 0.1 TH/MM3 Basophils # (Auto) 0.0 TH/MM3 CBC Comment DIFF FINAL Differential Comment Blood Urea Nitrogen 19 MG/DL Creatinine 1.56 MG/DL Random Glucose 163 MG/DL Total Protein 6.3 GM/DL Albumin 2.6 GM/DL Calcium Level 8.7 MG/DL Alkaline Phosphatase 160 U/L Aspartate Amino Transf (AST/SGOT) 113 U/L Alanine Aminotransferase (ALT/SGPT) 98 U/L Total Bilirubin 22.6 MG/DL Sodium Level 143 MEQ/L Potassium Level 3.7 MEQ/L Chloride Level 115 MEQ/L Carbon Dioxide Level 18.4 MEQ/L Anion Gap 10 MEQ/L Estimat Glomerular Filtration Rate 50 ML/MIN Ammonia LESS THAN 10 MCMOL/L Ethyl Alcohol Level LESS THAN 3 MG/DL Prothrombin Time 18.7 SEC Prothromb Time International Ratio 1.8 RATIO Activated Partial Thromboplast Time 30.4 SEC [facility] Medical Decision Making Medical Screen Exam Complete: Yes Emergency Medical Condition: Yes Interpretation(s) LABS: CBC remarkable for leukocytosis, anemia CMP remarkable for elevated BUN and creatinine, bilirubin 22, protein low Alcohol Coags Differential Diagnosis Confusion, personality disorder, encephalopathy, infection, other Narrative Course Medical decision making Initially difficult position of patient refusing to be evaluated. Family states they feel like he is an immediate threat to himself because of confusion , the worried his ammonia may be elevated, he said he is out wandering and is not acting like himself. Described his behavior is childish, and impulsive. He appears agitated because he took his car keys away. Patient is not trying to leave the waiting room but at the same time is refusing any evaluation or to be assessed. After discussion with the family, an attempt to assess the patient , I thought the best course of action would be to proceed with an involuntary evaluation given what appeared to be lack of capacity or ability to understand, presumed to be due to encephalopathy. The procedure was discussed in detail with the family before. Patient was restrained uneventfully with the assistance of security, was given 5 mg of Haldol. Blood was drawn, and labs are sent. FINAL: Reviewed all the labs. No immediate cause for the patient's worsening mental status. My suspicion is is likely related to delirium from the underlying worsening chronic end-stage liver disease. Ammonia is not particularly elevated. Labs are about at baseline. Discussed with the family that this could represent simply sequela of worsening liver disease it is unlikely to improve despite maximal medical treatment. Contingencies for this are not well planned for at this point. I believe home health care is already arranged. Patient may do better in intermediate given all of his requirements, but I believe at this time is still self-pay. We will plan on admission for observation. If no worsening symptoms, he may become incumbent upon the family to decide on alternative arrangements. Diagnosis Primary Impression: Altered mental status Additional Impression: Confusion Admitting Information Admitting Physician Requests: Observation Bill Craig MD Dec 23, 2017 02:10
[2017-12-23 02:44] LABS: INTERNATIONAL NORMALIZED RATIO 1.8 RATIO; PROTHROMBIN TIME - PATIENT 18.7 SEC (9.8-11.6)
[2017-12-23] MEDS ORDERED: FLUMAZENIL 0.5 MG/5 ML VIAL IV PUSH PRN (02:45)
[2017-12-23] MEDS ORDERED: HALOPERIDOL LACTATE 5 MG/ML AMP IM PRN ×2 (02:45)
[2017-12-23] MEDS ORDERED: LORazepam 2 MG/ML VIAL IV PUSH PRN ×4 (02:45)
[2017-12-23] MEDS ORDERED: LORazepam 2 MG TAB PO PRN (02:45)
[2017-12-23] MEDS ORDERED: LORazepam 1 MG TAB PO PRN (02:45)
[2017-12-23] MEDS: PENTOXIFYLLINE 400 MG CONTROLLED RELEASE TAB PO SCH ×3 (03:00→17:47)
[2017-12-23] MEDS ORDERED: LACTULOSE SYRUP 20 GM/30 ML CUP PO PRN (03:00)
[2017-12-23] MEDS ORDERED: SODIUM CHLORIDE 0.9% FLUSH 10 ML FLUSH IV FLUSH PRN (03:00)
[2017-12-23] MEDS ORDERED: BISACODYL 10 MG SUPP RECTAL PRN (03:00)
[2017-12-23] MEDS ORDERED: ONDANSETRON HCL 4 MG/2 ML VIAL IVP PRN (03:00)
[2017-12-23] MEDS ORDERED: MAGNESIUM HYDROXIDE SUSP 30 ML CUP PO PRN (03:00)
[2017-12-23] MEDS ORDERED: SENNOSIDES 8.6 MG TAB PO PRN (03:00)
--- NOTE | 2017-12-23 03:38 | HHI.HP ---
HPI Service [facility] Primary Care Physician No Primary Care Physician Admission Diagnosis Altered mental status, end-stage liver disease Diagnoses: (1) Encephalopathy Diagnosis: Principal (2) Combative behavior Diagnosis: Principal (3) End-stage liver disease Diagnosis: Principal (4) Alcohol abuse Diagnosis: Principal Travel History International Travel<30 Days: No Contact w/Intl Traveler <30 Da: No Traveled to Known Affected Are: No History of Present Illness This is a 37-year-old male with a PMH of Alcohol Abuse, ESLD, Hepatorenal Syndrome and Chronic Leukocytosis who was brought to the ER by family secondary to aggressive/combative behavior and refusing to take medications. Pt recently admitted w/ prolonged hospitalization from 11/30-12/15/17 for Cirrhosis, Ascites, Hepatorenal Syndrome and Leukocytosis as a result of ESLD, was seen by Palliative Care and deemed competent at that time. Per family, pt w/ worsening erratic behavior and concerned w/ elevated ammonia levels. In Triage, pt refusing care, combative, subsequently placed in restraints, currently under Panda Act. Pt now more calm, tells me "I feel like shit and the world is caving in". Provides no other history. Vitals stable. Labs stable in comparison to those from recent discharge. Ammonia less than 10. LFTs mildly elevated in comparison to previous labs. WBC 27.3, previously 26.3 on 12/21/2017 , s/p eval by Dr. Gutierrez, thought to be reactive. INR 1.8 Review of Systems Except as stated in HPI: all other systems reviewed are Neg ROS: Unable to obtain as patient largely uncooperative with questioning Past Family Social History Past Medical History PMH: Alcohol Abuse, ESLD, Hepatorenal Syndrome and Chronic Leukocytosis Past Surgical History PAST SURGICAL HISTORY: None Allergies: Coded Allergies: No Known Allergies (Verified , 11/24/17) Family History PAST FAMILY HISTORY: Reviewed. No h/o DM or CAD Social History PAST SOCIAL HISTORY: History of alcohol abuse. Positive for tobacco. Negative for drugs. Physical Exam Vital Signs Vital Signs Date Time Temp Pulse Resp B/P (MAP) Pulse Ox O2 Delivery O2 Flow Rate FiO2 12/23/17 00:34 97.9 86 18 121/80 (94) 98 Physical Exam PE: GENERAL: Middle-aged white male in no acute distress, appears much older than stated age. Significant jaundice HEENT: PERRLA, EOMI. + scleral icterus. No conjunctival pallor. No lid lag or facial droop. CARDIOVASCULAR: Regular rate and rhythm. No obvious murmurs to auscultation. No chest tenderness to palpation. RESPIRATORY: No obvious rhonchi or wheezing. Clear to auscultation. Breath sounds equal bilaterally. GASTROINTESTINAL: Abdomen soft, non-tender, nondistended. BS normal. MUSCULOSKELETAL: Extremities without clubbing, cyanosis, or edema. No obvious deformities. NEUROLOGICAL: Sleeping, minimally conversive, not answering questions. No focal neurologic deficits. Moving both upper and lower extremities spontaneously. Laboratory Laboratory Tests Test 12/23/17 00:40 12/23/17 02:10 White Blood Count 27.3 Red Blood Count 2.96 Hemoglobin 10.6 Hematocrit 30.4 Mean Corpuscular Volume 102.6 Mean Corpuscular Hemoglobin 35.8 Mean Corpuscular Hemoglobin Concent 34.9 Red Cell Distribution Width 17.7 Platelet Count 203 Mean Platelet Volume 8.8 Neutrophils (%) (Auto) 91.2 Lymphocytes (%) (Auto) 3.1 Monocytes (%) (Auto) 5.3 Eosinophils (%) (Auto) 0.4 Basophils (%) (Auto) 0.0 Neutrophils # (Auto) 24.9 Lymphocytes # (Auto) 0.8 Monocytes # (Auto) 1.4 Eosinophils # (Auto) 0.1 Basophils # (Auto) 0.0 CBC Comment DIFF FINAL Differential Comment Blood Urea Nitrogen 19 Creatinine 1.56 Random Glucose 163 Total Protein 6.3 Albumin 2.6 Calcium Level 8.7 Alkaline Phosphatase 160 Aspartate Amino Transf (AST/SGOT) 113 Alanine Aminotransferase (ALT/SGPT) 98 Total Bilirubin 22.6 Sodium Level 143 Potassium Level 3.7 Chloride Level 115 Carbon Dioxide Level 18.4 Anion Gap 10 Estimat Glomerular Filtration Rate 50 Ammonia LESS THAN 10 Ethyl Alcohol Level LESS THAN 3 Prothrombin Time 18.7 Prothromb Time International Ratio 1.8 Activated Partial Thromboplast Time 30.4 Result Diagram: 12/23/173912/23/170 Caprini VTE Risk Assessment Caprini VTE Risk Assessment: No/Low Risk (score <= 1) VTE Pharm Contraindication: Coagulopathy,INR elevated Caprini Risk Assessment Model Point Value = 1 Point Value = 2 Point Value = 3 Point Value = 5 Age 41-60 Minor surgery BMI > 25 kg/m2 Swollen legs Varicose veins or History of unexplained or recurrent spontaneous Oral contraceptives or hormone replacement Sepsis (< 1 month) Serious lung disease, including pneumonia (< 1 month) Abnormal pulmonary function Acute myocardial infarction Congestive heart failure (< 1 month) History of inflammatory bowel disease Medical patient at bed rest Age 61-74 Arthroscopic surgery Major open surgery (> 45 min) Laparoscopic surgery (> 45 min) Malignancy Confined to bed (> 72 hours) Immobilizing plaster cast Central venous access Age >= 75 History of VTE Family history of VTE Factor V Leiden Prothrombin [id number] Lupus anticoagulant Anticardiolipin antibodies Elevated serum homocysteine Heparin-induced thrombocytopenia Other congenital or acquired thrombophilia Stroke (< 1 month) Elective arthroplasty Hip, pelvis, or leg fracture Acute spinal cord injury (< 1 month) Prophylaxis Regimen Total Risk Factor Score Risk Level Prophylaxis Regimen 0-1 Low Early ambulation 2 Moderate Order ONE of the following: *Sequential Compression Device (SCD) *Heparin 5000 units SQ BID 3-4 Higher Order ONE of the following medications: *Heparin 5000 units SQ TID *Enoxaparin/Lovenox 40 mg SQ daily (WT < 150 kg, CrCl > 30 mL/min) *Enoxaparin/Lovenox 30 mg SQ daily (WT < 150 kg, CrCl > 10-29 mL/min) *Enoxaparin/Lovenox 30 mg SQ BID (WT < 150 kg, CrCl > 30 mL/min) AND/OR *Sequential Compression Device (SCD) 5 or more Highest Order ONE of the following medications: *Heparin 5000 units SQ TID (Preferred with Epidurals) *Enoxaparin/Lovenox 40 mg SQ daily (WT < 150 kg, CrCl > 30 mL/min) *Enoxaparin/Lovenox 30 mg SQ daily (WT < 150 kg, CrCl > 10-29 mL/min) *Enoxaparin/Lovenox 30 mg SQ BID (WT < 150 kg, CrCl > 30 mL/min) AND *Sequential Compression Device (SCD) Assessment and Plan Problem List: (1) Encephalopathy ICD Code: G93.40 - Encephalopathy, unspecified (2) End-stage liver disease ICD Code: K72.90 - Hepatic failure, unspecified without coma (3) Combative behavior ICD Code: R46.89 - Other symptoms and signs involving appearance and behavior (4) Alcohol abuse ICD Code: F10.10 - Alcohol abuse, uncomplicated Assessment and Plan A/P: 1. Encephalopathy: likely secondary to ESLD w/ progression. Ammonia <10. Per family, pt refusing to take medications, recent admit s/p eval by GI, d/c'd on Octreotide injections, non-compliant. Answering questions intermittently. Currently under Panda Act. Will consult Psych to eval for competency. Neuro Cheks. 2. ESLD: LFTs/Bilirubin at baseline. Resume home Rifaximin, Lactulose, Pentoxifylline, Midodrine. INR 1,8, continue Vit K, repeat INR in am. 3. Combative Behavior: unclear if underlying Psych Disorder compounded by ESLD , currently under Panda Act as above, Pscyh eval. Haldol prn. 4. Alcohol Abuse: CIWA, Seizure Precautions, MVT/Thiamine/Folate 5. DVT Prophylaxis: Pharmacologic contraindication secondary to ESLD 6. Social work for d/c planning as needed. 7. Case discussed w/ ER physician at length, labs/records/imaging reviewed by me. Larissa Merino MD Dec 23, 2017 03:38
[2017-12-23] MEDS: OCTREOTIDE INJ 100 MCG/ML VIAL SQ SCH ×3 (04:00→21:44)
[2017-12-23] MEDS: SODIUM BICARBONATE 650 MG TAB PO SCH ×3 (05:59→20:04)
[2017-12-23] MEDS: LACTULOSE SYRUP 20 GM/30 ML CUP PO SCH ×3 (05:59→20:03)
[2017-12-23] MEDS: DOCUSATE SODIUM 50 MG/SENNA 8.6 MG TAB PO SCH ×2 (08:43→19:56)
[2017-12-23] MEDS: FOLIC ACID 1 MG TAB PO SCH (08:43)
[2017-12-23] MEDS: THIAMINE HCL 100 MG TAB PO SCH (08:44)
[2017-12-23] MEDS: RIFAXIMIN 550 MG TAB PO SCH ×2 (08:44→19:56)
[2017-12-23] MEDS: prednisoLONE 10 MG ODT TAB PO SCH (08:44)
[2017-12-23] MEDS: CHOLESTYRAMINE 4 GM PACKET PO SCH ×3 (08:45→17:47)
[2017-12-23] MEDS: MIDODRINE 5 MG TAB PO SCH ×3 (08:45→17:47)
[2017-12-23] MEDS: PANTOPRAZOLE SOD 40 MG DELAYED RELEASE TAB PO SCH (08:51)
[2017-12-23] MEDS: SODIUM CHLORIDE 0.9% FLUSH 10 ML FLUSH IV FLUSH SCH ×2 (08:52→19:56)
[2017-12-23] MEDS ORDERED: PHYTONADIONE 5 MG TAB PO SCH (09:00)
[2017-12-23] MEDS: MULTIVITAMINS/MINERALS THERAPEUTIC TAB PO SCH (09:37)
[2017-12-23] MEDS: PHYTONADIONE 5 MG/SWFI 5 ML ORAL SYR PO SCH (09:37)
[2017-12-23] MEDS: CYANOCOBALAMIN 100 MCG TAB PO SCH (09:37)
--- NOTE | 2017-12-23 10:39 | PD.PSY.CON ---
Provisional Diagnosis Admission Date Dec 23, 2017 at 02:53 Constable I. Delirium due to underlying medical condition, hepatic as a follow-up History of Present Illness Service Psychiatry Consult Requested By ER Reason for Consult Agitation and aggressive behavior Primary Care Physician No Primary Care Physician HPI The patient is a 37-year-old man, domiciled with his parents, single, unemployed, with a PMH of Alcohol Abuse, ESLD, Hepatorenal Syndrome and Chronic Leukocytosis who was brought to the ER by family secondary to aggressive/ combative behavior and refusing to take medications. Pt recently admitted w/ prolonged hospitalization from 11/30-12/15/17 for Cirrhosis, Ascites, Hepatorenal Syndrome and Leukocytosis as a result of ESLD, was seen by Palliative Care and deemed competent at that time. Per family, pt w/ worsening erratic behavior and concerned w/ elevated ammonia levels. In Triage, pt refusing care, combative, subsequently placed in restraints, currently under Panda Act. Pt now more calm, tells me "I feel like shit and the world is caving in". Provides no other history. Vitals stable. Labs stable in comparison to those from recent discharge. Ammonia less than 10. LFTs mildly elevated in comparison to previous labs. WBC 27.3, previously 26.3 on 12/21/2017, s/p eval by Dr. Gutierrez, thought to be reactive. INR 1.8. Patient was consulted to psychiatry to help with aggressive behavior, and to assess decision-making capacity. On psychiatric evaluation the patient is found in his room, guarded, basically paranoid, very irritable, requesting to be discharged immediately. Patient was sensitive to verbal de-escalation techniques. He says that he does not know what he is doing here. Patient says that he does not need to be here. Patient seems to be confused, guarded, disoriented. He denies suicidal or homicidal ideation, he denies visual and auditory hallucinations. He does have visible fluctuation of consciousness and attention deficit. He has been allegedly very aggressive and agitated needing Haldol IM. Review of Systems Psychiatric: COMPLAINS OF: Confusion, Agitation Past Family Social History Coded Allergies: No Known Allergies (Verified , 11/24/17) Active Scripts Lactulose Liq (Lactulose Liq) 10 Gm/15 Ml Soln, 30 ML PO Q6H Y for Liver failure for 30 Days, #0491 ML 0 Refills Prov:Jorge Martell MD 12/14/17 Phytonadione (Mephyton) 5 Mg Tab, 5 MG PO DAILY for Liver failure, #30 TAB 0 Refills Prov:Jorge Martell MD 12/14/17 [Octreotide Inj] 100 MCG/ML INJ No Conflict Check, 200 MCG SQ Q8H for Liver failure, #90 INJECTION 0 Refills Prov:Jorge Martell MD 12/14/17 Cholecalciferol (Gnp Vitamin D3 Extra Stre) 1,000 Unit Tab, 1000 UNITS PO DAILY for Nutritional Supplement, #30 TAB 0 Refills Prov:Jorge Martell MD 12/14/17 Folic Acid (Folic Acid) 1 Mg Tablet, 1 MG PO DAILY for Nutritional Supplement, # 30 TAB 0 Refills Prov:Jorge Martell MD 12/14/17 Cyanocobalamin (Vitamin B12) 100 Mcg Tab, 100 MCG PO DAILY for Nutritional Supplement, #30 TAB 0 Refills Prov:Jorge Martell MD 12/14/17 Prednisolone Odt (Prednisolone Odt) 10 Mg Tab, 40 MG PO DAILY for Inflammation, #30 TAB 0 Refills Do not stop suddenly. Needs to be tapered off. Prov:Jorge Martell MD 12/14/17 Sodium Bicarbonate (Sodium Bicarbonate) 650 Mg Tab, 650 MG PO Q8HR for Nutritional Supplement, #90 TAB 0 Refills Prov:Jorge Martell MD 12/14/17 Pantoprazole (Pantoprazole) 40 Mg Tab, 40 MG PO DAILY for Reflux, #30 TAB 0 Refills Prov:Jorge Martell MD 12/14/17 Hydroxyzine HCl (Hydroxyzine HCl) 25 Mg Tab, 50 MG PO Q6H Y for itching, #15 TAB 0 Refills Prov:Jorge Martell MD 12/14/17 Oxycodone (Oxycodone) 5 Mg Tab, 5 MG PO Q4H Y for PAIN SCALE 4 TO 10, #20 TAB 0 Refills Prov:Jorge Martell MD 12/14/17 Cholestyramine (Cholestyramine) 4 Gm/Pkt Powd, 4 GM PO TIDAC for liver failure, #90 PKT 0 Refills 1 packet contains 4 grams of cholestyramine. Prov:Jorge Martell MD 12/14/17 Pentoxifylline ER (Pentoxifylline ER) 400 Mg Tab, 400 MG PO Q8H for hepatitis, # 90 TAB 0 Refills Prov:Jorge Martell MD 12/14/17 Potassium Chloride ER (Potassium Chloride ER) 10 Meq Cap, 20 MEQ PO BID for Nutritional Supplement, #60 CAP Prov:Jorge Martell MD 12/14/17 Midodrine (Midodrine) 5 Mg Tab, 2.5 MG PO TID@07,12,17 for Blood Pressure Management, #90 TAB 0 Refills Prov:Jorge Martell MD 12/14/17 Rifaximin (Xifaxan) 550 Mg Tab, 550 MG PO BID for Liver failure, #60 TAB 0 Refills Prov:Jorge Martell MD 12/14/17 Current Medications Medications (Trade) Dose Ordered Sig/Virgil Route Start Time Stop Time Status Last Admin (Lactulose Liq) 30 ml Q8H PO 12/23/17 06:00 (Haldol Inj) 5 mg Q4H PRN IM 12/23/17 02:45 (Vitamin B1) 100 mg DAILY PO 12/23/17 09:00 12/23/17 08:44 (Theragran M Tab) 1 tab DAILY PO 12/23/17 09:00 12/28/17 08:59 12/23/17 09:37 (Romazicon Inj) 0.2 mg Q1M PRN IV PUSH 12/23/17 02:45 (Ativan) 1 mg Q4H PRN PO 12/23/17 02:45 (Ativan Inj) 1 mg Q4H PRN IV PUSH 12/23/17 02:45 (Ativan) 2 mg Q2H PRN PO 12/23/17 02:45 (Ativan Inj) 2 mg Q2H PRN IV PUSH 12/23/17 02:45 (Ativan Inj) 2 mg Q1H PRN IV PUSH 12/23/17 02:45 (Ativan Inj) 2 mg Q15M PRN IV PUSH 12/23/17 02:45 (Haldol Inj) 2 mg Q15M PRN IM 12/23/17 02:45 (NS Flush) 2 ml UNSCH PRN IV FLUSH 12/23/17 03:00 (NS Flush) 2 ml BID IV FLUSH 12/23/17 09:00 12/23/17 08:52 (Zofran Inj) 4 mg Q6H PRN IVP 12/23/17 03:00 (Roxicodone) 10 mg Q4H PRN PO 12/23/17 03:00 (Roxicodone) 5 mg Q4H PRN PO 12/23/17 03:00 (Katie-Colace) 1 tab BID PO 12/23/17 09:00 12/23/17 08:43 (Milk Of Magnesia Liq) 30 ml Q12H PRN PO 12/23/17 03:00 (Senokot) 17.2 mg Q12H PRN PO 12/23/17 03:00 (Dulcolax Supp) 10 mg DAILY PRN RECTAL 12/23/17 03:00 (Lactulose Liq) 30 ml DAILY PRN PO 12/23/17 03:00 (Questran 4 Gm Pkt) 4 gm TIDAC PO 12/23/17 08:00 12/23/17 08:45 (Vitamin B12) 100 mcg DAILY PO 12/23/17 09:00 12/23/17 09:37 (Folate) 1 mg DAILY PO 12/23/17 09:00 12/23/17 08:43 (Atarax) 50 mg Q6H PRN PO 12/23/17 03:00 (Proamatine) 2.5 mg TID@07,12,17 PO 12/23/17 07:00 12/23/17 08:45 (Protonix) 40 mg DAILY PO 12/23/17 09:00 12/23/17 08:51 (TRENtal SR) 400 mg Q8H PO 12/23/17 03:00 (Orapred Odt) 40 mg DAILY PO 12/23/17 09:00 12/23/17 08:44 (Xifaxan) 550 mg BID PO 12/23/17 09:00 12/23/17 08:44 (Sodium Bicarbonate) 650 mg Q8HR PO 12/23/17 06:00 (SandoSTATIN INJ) 200 mcg Q8H SQ 12/23/17 04:00 (Mephyton Liq) 5 mg DAILY PO 12/23/17 09:00 12/23/17 09:37 Physical Exam Vital Signs Vital Signs Date Time Temp Pulse Resp B/P (MAP) Pulse Ox O2 Delivery O2 Flow Rate FiO2 12/23/17 00:34 97.9 86 18 121/80 (94) 98 Lab Results Test 12/23/17 00:40 12/23/17 02:10 White Blood Count 27.3 TH/MM3 Red Blood Count 2.96 MIL/MM3 Hemoglobin 10.6 GM/DL Hematocrit 30.4 % Mean Corpuscular Volume 102.6 FL Mean Corpuscular Hemoglobin 35.8 PG Mean Corpuscular Hemoglobin Concent 34.9 % Red Cell Distribution Width 17.7 % Platelet Count 203 TH/MM3 Mean Platelet Volume 8.8 FL Neutrophils (%) (Auto) 91.2 % Lymphocytes (%) (Auto) 3.1 % Monocytes (%) (Auto) 5.3 % Eosinophils (%) (Auto) 0.4 % Basophils (%) (Auto) 0.0 % Neutrophils # (Auto) 24.9 TH/MM3 Lymphocytes # (Auto) 0.8 TH/MM3 Monocytes # (Auto) 1.4 TH/MM3 Eosinophils # (Auto) 0.1 TH/MM3 Basophils # (Auto) 0.0 TH/MM3 CBC Comment DIFF FINAL Differential Comment Blood Urea Nitrogen 19 MG/DL Creatinine 1.56 MG/DL Random Glucose 163 MG/DL Total Protein 6.3 GM/DL Albumin 2.6 GM/DL Calcium Level 8.7 MG/DL Alkaline Phosphatase 160 U/L Aspartate Amino Transf (AST/SGOT) 113 U/L Alanine Aminotransferase (ALT/SGPT) 98 U/L Total Bilirubin 22.6 MG/DL Sodium Level 143 MEQ/L Potassium Level 3.7 MEQ/L Chloride Level 115 MEQ/L Carbon Dioxide Level 18.4 MEQ/L Anion Gap 10 MEQ/L Estimat Glomerular Filtration Rate 50 ML/MIN Ammonia LESS THAN 10 MCMOL/L Ethyl Alcohol Level LESS THAN 3 MG/DL Prothrombin Time 18.7 SEC Prothromb Time International Ratio 1.8 RATIO Activated Partial Thromboplast Time 30.4 SEC Mental Status Examination Appearance: Appropriate Consciousness: Clouded Orientation: Person Motor Activity: Abnormal gait Speech: Rapid Language: Adequate Fund of Knowledge: Inadequate Attention and Concentration: Easily Distracted, Inadequate Memory: Impaired Mood: Angry Affect: Irritable Thought Process & Associations: Loose associations Thought Content: Bizarre thinking Hallucination Type: None Delusion Type: Bizarre, Paranoid Suicidal Ideation: No Suicidal Plan: No Suicidal Intention: No Homicidal Ideation: No Homicidal Plan: No Homicidal Intention: No Insight: Poor Judgment: Poor Assessment & Plan Problem List: (1) Delirium due to another medical condition ICD Codes: F05 - Delirium due to known physiological condition Assessment & Plan: At the moment of the psychiatric evaluation patient is visibly confused, agitated, with fluctuation of consciousness, disoriented, disorganized, increasingly paranoid. He is unable to verbalize the reason of his hospitalization, unable to express an understanding and appreciation of current acute condition. He seems to be delirious most probably related with hepatic encephalopathy. Patient definitely does not have decision-making capacity to leave AMA at this moment. Haldol 5 mg IM every 8 hours can be used for agitation and aggressive behavior. Now, for acute psychosis, and going to start Invega 3 mg daily. I will follow-up (2) Cirrhosis with alcoholism ICD Codes: K70.30 - Alcoholic cirrhosis of liver without ascites Status: Acute (3) Hyperammonemia ICD Codes: E72.20 - Disorder of urea cycle metabolism, unspecified Status: Acute Assessment & Plan Estimated LOS: Yossi Xiong MD Dec 23, 2017 10:39
[2017-12-23 10:54] VITALS: BP 112/63; PULSE 64; RESP 14; TEMP 98.6; O2SAT 95
[2017-12-23] MEDS: PALIPERIDONE ER 3 MG TAB PO SCH (13:07)
[2017-12-23 16:21] VITALS: BP 126/79; PULSE 95; RESP 14; TEMP 98; O2SAT 98
[2017-12-23] MEDS ORDERED: THIAMINE HCL 100 MG TAB PO ONE (17:45)
[2017-12-23] MEDS: hydrOXYzine HCL 25 MG TAB PO PRN (20:00)
[2017-12-23 21:34] VITALS: BP 116/70; PULSE 94; RESP 20; TEMP 98.3; O2SAT 98
[2017-12-24] VITALS (7 sets, daily range): BP systolic 116–137; BP diastolic 62–94; PULSE 76–114; RESP 16–20; TEMP 97.9–98.4; O2SAT 97–100
[2017-12-24] MEDS: PENTOXIFYLLINE 400 MG CONTROLLED RELEASE TAB PO SCH ×2 (03:11→11:51)
[2017-12-24] MEDS: OCTREOTIDE INJ 100 MCG/ML VIAL SQ SCH ×2 (03:12→11:51)
[2017-12-24] MEDS: hydrOXYzine HCL 25 MG TAB PO PRN (03:15)
[2017-12-24 05:42] LABS: INTERNATIONAL NORMALIZED RATIO 1.8 RATIO; PROTHROMBIN TIME - PATIENT 18.4 SEC (9.8-11.6)
[2017-12-24 05:45] LABS: BASOPHIL # 0.1 TH/MM3 (0-0.2); BASOPHIL % 0.3 % (0.0-2.0); EOSINOPHIL # 0.1 TH/MM3 (0-0.4); EOSINOPHIL % 0.3 % (0.0-4.0); HEMATOCRIT 27.4 % (39.0-51.0); HEMOGLOBIN 9.6 GM/DL (13.0-17.0); LYMPH % 8.1 % (9.0-44.0); LYMPHOCYTE # 1.6 TH/MM3 (1.0-4.8); MEAN CELL VOLUME 102.2 FL (80.0-100.0); MEAN CORPUSCULAR HEMOGLOBIN 35.9 PG (27.0-34.0); MEAN CORPUSCULAR HGB CONC 35.1 % (32.0-36.0); MEAN PLATELET VOLUME 8.6 FL (7.0-11.0); MONO % 5.9 % (0.0-8.0); MONOCYTE # 1.2 TH/MM3 (0-0.9); NEUT % 85.4 % (16.0-70.0); PLATELET COUNT 157 TH/MM3 (150-450); RED BLOOD COUNT 2.68 MIL/MM3 (4.50-5.90); RED CELL DISTRIBUTION WIDTH 16.8 % (11.6-17.2); WHITE BLOOD COUNT 19.9 TH/MM3 (4.0-11.0)
[2017-12-24] MEDS: LACTULOSE SYRUP 20 GM/30 ML CUP PO SCH ×2 (06:00→14:41)
[2017-12-24] MEDS: SODIUM BICARBONATE 650 MG TAB PO SCH ×2 (06:00→14:40)
[2017-12-24] MEDS: MIDODRINE 5 MG TAB PO SCH ×2 (06:00→11:51)
[2017-12-24 06:02] LABS: ALT (GPT) 97 U/L (12-78)
[2017-12-24 06:07] LABS: ALBUMIN 2.2 GM/DL (3.4-5.0); ALKALINE PHOSPHATASE 140 U/L (45-117); AST (GOT) 97 U/L (15-37); BICARBONATE 17.6 MEQ/L (21.0-32.0); BLOOD UREA NITROGEN 19 MG/DL (7-18); CHLORIDE 110 MEQ/L (98-107); CREATININE 1.19 MG/DL (0.60-1.30); GLOMERULAR FILTRATION RATE 68 ML/MIN (>89); GLUCOSE,RANDOM 106 MG/DL (74-106); SODIUM (NA) 139 MEQ/L (136-145); TOTAL BILIRUBIN ADULT 19.9 MG/DL (0.2-1.0); TOTAL PROTEIN 5.4 GM/DL (6.4-8.2)
[2017-12-24] MEDS: THIAMINE HCL 100 MG TAB PO SCH (08:57)
[2017-12-24] MEDS: PANTOPRAZOLE SOD 40 MG DELAYED RELEASE TAB PO SCH (08:57)
[2017-12-24] MEDS: PALIPERIDONE ER 3 MG TAB PO SCH (08:57)
[2017-12-24] MEDS: PHYTONADIONE 5 MG/SWFI 5 ML ORAL SYR PO SCH (08:57)
[2017-12-24] MEDS: SODIUM CHLORIDE 0.9% FLUSH 10 ML FLUSH IV FLUSH SCH (08:58)
[2017-12-24] MEDS: prednisoLONE 10 MG ODT TAB PO SCH (08:58)
[2017-12-24] MEDS: CYANOCOBALAMIN 100 MCG TAB PO SCH (08:58)
[2017-12-24] MEDS: MULTIVITAMINS/MINERALS THERAPEUTIC TAB PO SCH (08:58)
[2017-12-24] MEDS: RIFAXIMIN 550 MG TAB PO SCH (08:58)
[2017-12-24] MEDS: DOCUSATE SODIUM 50 MG/SENNA 8.6 MG TAB PO SCH (08:58)
[2017-12-24] MEDS: FOLIC ACID 1 MG TAB PO SCH (08:58)
[2017-12-24] MEDS: CHOLESTYRAMINE 4 GM PACKET PO SCH ×2 (09:00→11:51)
[2017-12-24] MEDS ORDERED: INVE3TAB2 PO (14:35)
--- NOTE | 2017-12-24 15:03 | HHI.PYPN ---
Subjective Remarks Patient seen in his room with his mother and father. Patient alert fairly well oriented showing some minimization of behavior. Though he denies suicidality homicidality voices or visions. He showing some reluctance to acknowledge behaviors necessary to help treat his significant medical issues. I did discuss this with the parents also I also did discuss this with Dr. Cordero. Dr. Cordero feels he is stable for discharge home. With the caveats the patient refrain from marijuana or other drugs and refrain from driving and agreed to take the Invega I will lift Panda act allow patient to be discharged also. The follow-up with their primary care physician or with medical clinic in [facility] Review of Systems Except as stated in HPI: all other systems reviewed are Neg Mental Status Examination Appearance: Appropriate Consciousness: Clouded (clearing) Orientation: Person, Place, Date/Time Motor Activity: Normal gait Speech: Rapid Language: Adequate Fund of Knowledge: Adequate Attention and Concentration: Easily Distracted, Inadequate Memory: Impaired Mood: Angry (calmer) Affect: Irritable (calmer) Thought Process & Associations: Loose associations Thought Content: Bizarre thinking Hallucination Type: None Delusion Type: Paranoid Suicidal Ideation: No Suicidal Plan: No Suicidal Intention: No Homicidal Ideation: No Homicidal Plan: No Homicidal Intention: No Insight: Poor Judgment: Poor Results Labs Test 12/24/17 05:08 White Blood Count 19.9 TH/MM3 Red Blood Count 2.68 MIL/MM3 Hemoglobin 9.6 GM/DL Hematocrit 27.4 % Mean Corpuscular Volume 102.2 FL Mean Corpuscular Hemoglobin 35.9 PG Mean Corpuscular Hemoglobin Concent 35.1 % Red Cell Distribution Width 16.8 % Platelet Count 157 TH/MM3 Mean Platelet Volume 8.6 FL Neutrophils (%) (Auto) 85.4 % Lymphocytes (%) (Auto) 8.1 % Monocytes (%) (Auto) 5.9 % Eosinophils (%) (Auto) 0.3 % Basophils (%) (Auto) 0.3 % Neutrophils # (Auto) 17.0 TH/MM3 Lymphocytes # (Auto) 1.6 TH/MM3 Monocytes # (Auto) 1.2 TH/MM3 Eosinophils # (Auto) 0.1 TH/MM3 Basophils # (Auto) 0.1 TH/MM3 CBC Comment DIFF FINAL Differential Comment Prothrombin Time 18.4 SEC Prothromb Time International Ratio 1.8 RATIO Blood Urea Nitrogen 19 MG/DL Creatinine 1.19 MG/DL Random Glucose 106 MG/DL Total Protein 5.4 GM/DL Albumin 2.2 GM/DL Calcium Level 8.0 MG/DL Alkaline Phosphatase 140 U/L Aspartate Amino Transf (AST/SGOT) 97 U/L Alanine Aminotransferase (ALT/SGPT) 97 U/L Total Bilirubin 19.9 MG/DL Sodium Level 139 MEQ/L Potassium Level 3.0 MEQ/L Chloride Level 110 MEQ/L Carbon Dioxide Level 17.6 MEQ/L Anion Gap 11 MEQ/L Estimat Glomerular Filtration Rate 68 ML/MIN Vitals/IOs Vital Signs Date Time Temp Pulse Resp B/P (MAP) Pulse Ox O2 Delivery O2 Flow Rate FiO2 12/24/17 12:00 98.4 102 18 135/92 (106) 99 Assessment & Plan Problem List: (1) Delirium due to another medical condition ICD Codes: F05 - Delirium due to known physiological condition (2) Cirrhosis with alcoholism ICD Codes: K70.30 - Alcoholic cirrhosis of liver without ascites Status: Acute (3) Hyperammonemia ICD Codes: E72.20 - Disorder of urea cycle metabolism, unspecified Status: Acute Assessment & Plan Estimated LOS: days as okay by psych for discharge at this time will lift Panda act. Dr. Cordero to right medications including be and vague, recommend follow-up with primary care physician Justification for Cont. Inpt. There is okay by psych for discharge per medicine service Discharge Planning Follow-up primary care physician Request HC Surrog/Guard Advoc?: No Inderjit Weber MD Dec 24, 2017 15:03
[2017-12-24] MEDS ORDERED: POTASSIUM CHLORIDE 10 MEQ CONTROLLED RELEASE TAB PO ONE (15:45)
--- NOTE | 2017-12-24 15:46 | HHI.PR ---
Subjective Remarks Patient seen yesterday afternoon, as well as this morning. Lengthy discussion with patient, and with patient's permission, his parents. Patient with impulsive activity outside hospital, tipping large amounts, going to dealership to test drive a car. Marijuana positive on urine screen. Counseled patient against use. Patient denies any chest pain or shortness of breath. Reports abdominal discomfort is baseline. Objective Vital Signs Date Time Temp Pulse Resp B/P (MAP) Pulse Ox O2 Delivery O2 Flow Rate FiO2 12/24/17 15:09 114 12/24/17 12:00 98.4 102 18 135/92 (106) 99 12/24/17 08:12 87 12/24/17 08:00 97.9 92 18 116/62 (80) 97 12/24/17 04:15 16 12/24/17 03:57 98.2 76 16 120/80 (93) 97 12/24/17 00:01 97.9 98 20 136/94 (108) 100 12/23/17 21:34 98.3 94 20 116/70 (85) 98 12/23/17 16:21 98.0 95 14 126/79 (95) 98 Result Diagram: 12/24/17 0508 12/24/17 0508 Objective Remarks GENERAL: Patient walking around unit. Appears comfortable. He is alert and oriented 3. SKIN: Warm and dry. HEAD: Normocephalic. EYES: No scleral icterus. No injection or drainage. NECK: Supple, trachea midline. No JVD. CARDIOVASCULAR: Regular rate and rhythm without murmurs, gallops, or rubs. RESPIRATORY: Breath sounds equal bilaterally. No accessory muscle use. GASTROINTESTINAL: Abdomen soft, non-tender, nondistended. MUSCULOSKELETAL: No cyanosis, or edema. BACK: Nontender without obvious deformity. No CVA tenderness. A/P Assessment and Plan // Encephalopathy: likely secondary to ESLD w/ progression. Ammonia <10. Per family, pt refusing to take medications, recent admit s/p eval by GI, d/c'd on Octreotide injections, non-compliant. Answering questions intermittently. Currently under Panda Act. Will consult Psych to eval for competency. Neuro Cheks. = After observation, no indication for medical cause of patient's symptoms. This is most likely secondary to psychosis. Appreciate psychiatry assistance. Discharge home on new meds // ESLD: LFTs/Bilirubin at baseline. Resume home Rifaximin, Lactulose, Pentoxifylline, Midodrine. INR 1,8, continue Vit K, repeat INR in am. = INR stable. 1.8. Continue home medications //Combative Behavior: unclear if underlying Psych Disorder compounded by ESLD, currently under Panda Act as above, [facility] eval. Haldol prn. // Alcohol Abuse: CIWA, Seizure Precautions, MVT/Thiamine/Folate //Hypokalemia. 3.0. Replace. Follow-up primary care. //DVT Prophylaxis: Pharmacologic contraindication secondary to ESLD Discharge Planning Discharge home with parents in good condition. Continue previous diet. Activity ad kermit. Please see discharge medication reconciliation. Follow-up with primary care, psychiatry as outpatient. Bryon Cordero MD Dec 24, 2017 15:46
== END 2017-12-24 17:11 | disposition home or self-care (01) ==
LOC: NEPE 23:58 → NEDA 12-23 02:53 → NEPFCDU 12-23 10:58
PROVIDERS: ADMIT Internal Medicine; ATTEND Internal Medicine
DX: K72.90 Hepatic failure, unspecified without coma (principal); G93.40 Encephalopathy, unspecified; K70.30 Alcoholic cirrhosis of liver without ascites; E87.6 Hypokalemia; F10.20 Alcohol dependence, uncomplicated; Z72.0 Tobacco use
CPT/HCPCS: 80053; 80307; 82140; 82948; 85025; 85610; 85730; 96372; 99285; G0378; J1630; J2354; J7510

== ENCOUNTER 2017-12-30 15:26 | Inpatient (IN) | payer OTHER ==
[~2017-12-30] VITALS: Ht 188 cm; Wt 98.0 kg
[~2017-12-30 15:26] MED LIST changes: +INVE3TAB2 PO
[2017-12-30 15:43] VITALS: BP 134/60; PULSE 96; RESP 17; TEMP 97.9; O2SAT 100
[2017-12-30] MEDS ORDERED: SODIUM CHLORIDE 0.9% FLUSH 10 ML FLUSH IV FLUSH PRN ×2 (16:00→21:00)
--- NOTE | 2017-12-30 16:02 | PD ---
HPI Chief Complaint: Altered Mental Status Time Seen by Provider: 15:54 Travel History International Travel<30 days: No Contact w/Intl Traveler<30days: No Traveled to known affect area: No History of Present Illness HPI 37-year-old male patient with history of end-stage liver disease, hepatorenal syndrome in the past, alcohol use, presents to the ER today brought in by mom because he is appearing more disoriented than usual over the last few days. Mom has brought him to see GI and renal doctors but she states that she is getting concerned because he is looking more disoriented. She had given him a extra dose of lactulose which she was told to do by gastroenterology but it did not improve. He has been having some nausea,diarrhea, but denies any black stools. He states that he has had some spots of red blood in the stool at times. He denies any fevers or any other issues. 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) Psychiatric: No Reproductive: No Respiratory: Yes Influenza Vaccination: No Past Surgical History Other Surgery: Yes (fatty tumor removed from skull) Social History Alcohol Use: No (hx abuse) Tobacco Use: Yes (couple a day) Substance Use: No Allergies-Medications (Allergen,Severity, Reaction): Coded Allergies: No Known Allergies (Verified , 12/30/17) Reported Meds & Prescriptions Reported Meds & Active Scripts Active Invega (Paliperidone ER) 3 Mg Tab 3 Mg PO DAILY 30 Days Lactulose Liq (Lactulose) 10 Gm/15 Ml Soln 30 Ml PO Q6H PRN 30 Days Mephyton (Phytonadione) 5 Mg Tab 5 Mg PO DAILY [Octreotide Inj] 100 MCG/ML Inj 200 Mcg SQ Q8H Gnp Vitamin D3 Extra Stre (Cholecalciferol) 1,000 Unit Tab 1,000 Units PO DAILY Folic Acid 1 Mg Tablet 1 Mg PO DAILY Vitamin B12 (Cyanocobalamin) 100 Mcg Tab 100 Mcg PO DAILY Prednisolone Odt 10 Mg Tab 40 Mg PO DAILY Do not stop suddenly. Needs to be tapered off. Sodium Bicarbonate 650 Mg Tab 650 Mg PO Q8HR Pantoprazole (Pantoprazole Sodium) 40 Mg Tab 40 Mg PO DAILY Hydroxyzine HCl 25 Mg Tab 50 Mg PO Q6H PRN Oxycodone (Oxycodone HCl) 5 Mg Tab 5 Mg PO Q4H PRN Cholestyramine 4 Gm/Pkt Powd 4 Gm PO TIDAC 1 packet contains 4 grams of cholestyramine. Pentoxifylline ER (Pentoxifylline) 400 Mg Tab 400 Mg PO Q8H Potassium Chloride ER (Potassium Chloride) 10 Meq Cap 20 Meq PO BID Midodrine 5 Mg Tab 2.5 Mg PO TID@07,12,17 Xifaxan (Rifaximin) 550 Mg Tab 550 Mg PO BID Review of Systems ROS Limitations: Altered Mental Status Except as stated in HPI: all other systems reviewed are Neg (History mostly per mom) Physical Exam Narrative GENERAL: Well-developed middle-age male patient who is currently and moderate distress. Awake but disoriented. SKIN: Focused skin assessment warm/dry. Jaundiced. HEAD: Atraumatic. Normocephalic. EYES: Pupils equal and round. Anicteric. No injection or drainage. ENT: No nasal bleeding or discharge. Mucous membranes pink and moist. NECK: Trachea midline. No JVD. Supple. CARDIOVASCULAR: Regular rate and rhythm. No murmur appreciated. RESPIRATORY: No accessory muscle use. Clear to auscultation. Breath sounds equal bilaterally. GASTROINTESTINAL: Abdomen soft, non-tender, moderately distended. MUSCULOSKELETAL: No obvious deformities. No clubbing. No cyanosis. No edema. NEUROLOGICAL: Awake and alert. No obvious cranial nerve deficits. Motor grossly within normal limits. Normal speech. PSYCHIATRIC: Appropriate mood and affect; insight and judgment poor. Data Data Last Documented VS Vital Signs Date Time Temp Pulse Resp B/P (MAP) Pulse Ox O2 Delivery O2 Flow Rate FiO2 12/30/17 17:29 105 16 136/75 (95) 100 Room Air 12/30/17 15:43 97.9 Orders Orders Electrocardiogram (12/30/17 15:47) Ammonia (12/30/17 15:47) Complete Blood Count With Diff (12/30/17 15:47) Comprehensive Metabolic Panel (12/30/17 15:47) Prothrombin Time / Inr (Pt) (12/30/17 15:47) Act Partial Throm Time (Ptt) (12/30/17 15:47) Thyroid Stimulating Hormone (12/30/17 15:47) Urinalysis - C+S If Indicated (12/30/17 15:47) Blood Glucose (12/30/17 15:47) Ecg Monitoring (12/30/17 15:47) Iv Access Insert/Monitor (12/30/17 15:47) Oximetry (12/30/17 15:47) Sodium Chloride 0.9% Flush (Ns Flush) (12/30/17 16:00) Drug Screen, Random Urine (12/30/17 15:47) Piperacil-Tazo 4.5 Gm Premix (Zosyn 4.5 (12/30/17 17:26) Lactulose Liq (Lactulose Liq) (12/30/17 17:30) Potassium, Serum (K) (12/30/17 17:28) Labs Laboratory Tests Test 12/30/17 16:10 12/30/17 17:45 White Blood Count 27.9 TH/MM3 Red Blood Count 3.27 MIL/MM3 Hemoglobin 11.5 GM/DL Hematocrit 33.5 % Mean Corpuscular Volume 102.4 FL Mean Corpuscular Hemoglobin 35.1 PG Mean Corpuscular Hemoglobin Concent 34.3 % Red Cell Distribution Width 19.0 % Platelet Count 338 TH/MM3 Mean Platelet Volume 11.4 FL Neutrophils (%) (Auto) 81.3 % Lymphocytes (%) (Auto) 10.9 % Monocytes (%) (Auto) 6.8 % Eosinophils (%) (Auto) 0.9 % Basophils (%) (Auto) 0.1 % Neutrophils # (Auto) 22.6 TH/MM3 Lymphocytes # (Auto) 3.0 TH/MM3 Monocytes # (Auto) 1.9 TH/MM3 Eosinophils # (Auto) 0.2 TH/MM3 Basophils # (Auto) 0.0 TH/MM3 CBC Comment DIFF FINAL Differential Comment Prothrombin Time 18.0 SEC Prothromb Time International Ratio 1.8 RATIO Activated Partial Thromboplast Time 27.8 SEC Blood Urea Nitrogen 17 MG/DL Creatinine 1.19 MG/DL Random Glucose 97 MG/DL Total Protein 7.2 GM/DL Albumin 2.5 GM/DL Calcium Level 8.7 MG/DL Alkaline Phosphatase 192 U/L Aspartate Amino Transf (AST/SGOT) 205 U/L Alanine Aminotransferase (ALT/SGPT) 180 U/L Total Bilirubin 23.8 MG/DL Sodium Level 137 MEQ/L Potassium Level 6.6 MEQ/L Chloride Level 109 MEQ/L Carbon Dioxide Level 22.2 MEQ/L Anion Gap 6 MEQ/L Estimat Glomerular Filtration Rate 68 ML/MIN Ammonia 99 MCMOL/L Thyroid Stimulating Hormone 3rd Gen 0.431 uIU/ML MDM Medical Decision Making Medical Screen Exam Complete: Yes Emergency Medical Condition: Yes Medical Record Reviewed: Yes Interpretation(s) Laboratory Tests Test 12/30/17 16:10 12/30/17 17:45 White Blood Count 27.9 TH/MM3 (4.0-11.0) Red Blood Count 3.27 MIL/MM3 (4.50-5.90) Hemoglobin 11.5 GM/DL (13.0-17.0) Hematocrit 33.5 % (39.0-51.0) Mean Corpuscular Volume 102.4 FL (80.0-100.0) Mean Corpuscular Hemoglobin 35.1 PG (27.0-34.0) Red Cell Distribution Width 19.0 % (11.6-17.2) Mean Platelet Volume 11.4 FL (7.0-11.0) Neutrophils (%) (Auto) 81.3 % (16.0-70.0) Neutrophils # (Auto) 22.6 TH/MM3 (1.8-7.7) Monocytes # (Auto) 1.9 TH/MM3 (0-0.9) Prothrombin Time 18.0 SEC (9.8-11.6) Albumin 2.5 GM/DL (3.4-5.0) Alkaline Phosphatase 192 U/L (45-117) Aspartate Amino Transf (AST/SGOT) 205 U/L (15-37) Alanine Aminotransferase (ALT/SGPT) 180 U/L (12-78) Total Bilirubin 23.8 MG/DL (0.2-1.0) Potassium Level 6.6 MEQ/L (3.5-5.1) Chloride Level 109 MEQ/L (98-107) Estimat Glomerular Filtration Rate 68 ML/MIN (>89) Ammonia 99 MCMOL/L (11-32) Differential Diagnosis Liver failure versus metabolic issues versus dehydration versus encephalopathy Narrative Course Lab work shows ongoing liver failure with fairly elevated ammonia concerning for hepatic encephalopathy. His white count is elevated as well and IV antibiotics were initiated due to concerns of SBP. This point, my plan would be to admit him for further evaluation and treatment. Case is discussed with Dr. Mac of intensive care for further evaluation and treatment in ICU. I have discussed the findings at length with patient's parents and they state understanding. Aggregate critical care time was 30 minutes. Time to perform other separately billable procedures was not included in the critical care time. My time did not include minutes spent treating any other patients simultaneously or on activities that did not directly contribute to the patient's treatment. The services I provided to this patient were to treat and/or prevent clinically significant deterioration that could result in: Worsening sepsis, encephalopathy , hyperkalemia, dysrhythmia, I provided critical care services requiring my management, as noted below: Chart data review, documentation time, medication orders and management, vital sign assessments/reviewing monitor data, ordering and reviewing lab tests, ordering and interpreting/reviewing x-rays and diagnostic studies, care of the patient and discussion of the patient with the admitting physicians. Diagnosis Primary Impression: Encephalopathy Additional Impressions: Hyperammonemia End-stage liver disease SBP (spontaneous bacterial peritonitis) Admitting Information Admitting Physician Requests: Sina Jones MD Dec 30, 2017 16:02
[2017-12-30 16:49] LABS: INTERNATIONAL NORMALIZED RATIO 1.8 RATIO
[2017-12-30 16:50] LABS: AUTOMATED NEUTROPHIL # 22.6 TH/MM3 (1.8-7.7); BASOPHIL % 0.1 % (0.0-2.0); EOSINOPHIL # 0.2 TH/MM3 (0-0.4); EOSINOPHIL % 0.9 % (0.0-4.0); HEMATOCRIT 33.5 % (39.0-51.0); HEMOGLOBIN 11.5 GM/DL (13.0-17.0); LYMPH % 10.9 % (9.0-44.0); MEAN CELL VOLUME 102.4 FL (80.0-100.0); MEAN CORPUSCULAR HEMOGLOBIN 35.1 PG (27.0-34.0); MEAN CORPUSCULAR HGB CONC 34.3 % (32.0-36.0); MEAN PLATELET VOLUME 11.4 FL (7.0-11.0); MONO % 6.8 % (0.0-8.0); MONOCYTE # 1.9 TH/MM3 (0-0.9); NEUT % 81.3 % (16.0-70.0); PLATELET COUNT 338 TH/MM3 (150-450); RED BLOOD COUNT 3.27 MIL/MM3 (4.50-5.90); WHITE BLOOD COUNT 27.9 TH/MM3 (4.0-11.0)
[2017-12-30 17:05] LABS: ALBUMIN 2.5 GM/DL (3.4-5.0); ALT (GPT) 180 U/L (12-78); BICARBONATE 22.2 MEQ/L (21.0-32.0); BLOOD UREA NITROGEN 17 MG/DL (7-18); CALCIUM 8.7 MG/DL (8.5-10.1); CHLORIDE 109 MEQ/L (98-107); CREATININE 1.19 MG/DL (0.60-1.30); GLOMERULAR FILTRATION RATE 68 ML/MIN (>89); GLUCOSE,RANDOM 97 MG/DL (74-106); SODIUM (NA) 137 MEQ/L (136-145)
[2017-12-30] MEDS ORDERED: PIPERACIL-TAZO 4.5 GM PREMIX 100 ML IV STA (17:26)
[2017-12-30 17:29] VITALS: BP 136/75; PULSE 105; RESP 16; O2SAT 100
[2017-12-30 17:30] LABS: ALKALINE PHOSPHATASE 192 U/L (45-117); AST (GOT) 205 U/L (15-37); TOTAL BILIRUBIN ADULT 23.8 MG/DL (0.2-1.0)
[2017-12-30] MEDS ORDERED: LACTULOSE SYRUP 20 GM/30 ML CUP PO ONE (17:30)
[2017-12-30 18:30] LABS: TOTAL PROTEIN 7.2 GM/DL (6.4-8.2)
[2017-12-30 19:20] VITALS: BP 129/75; PULSE 88; RESP 14; O2SAT 100
--- NOTE | 2017-12-30 20:24 | RADRPT ---
EXAM DATE/TIME: 12/30/2017 19:58 [facility] COMPARISON: No previous studies available for comparison. INDICATIONS : Altered mental status. RADIATION DOSE: 39.81 CTDIvol (mGy) MEDICAL HISTORY : Cirrhosis. Hepatitis C. SURGICAL HISTORY : None. ENCOUNTER: Initial ACUITY: 2 days PAIN SCALE: 0/10 LOCATION: cranial TECHNIQUE: Multiple contiguous axial images were obtained of the head. Using automated exposure control and adj ustment of the mA and/or kV according to patient size, radiation dose was kept as low as reasonably a chievable to obtain optimal diagnostic quality images. DICOM format image data is available electro nically for review and comparison. FINDINGS: CEREBRUM: The ventricles are normal for age. No evidence of midline shift, mass lesion, hemorrhage or acute in farction. No extra-axial fluid collections are seen. POSTERIOR FOSSA: The cerebellum and brainstem are intact. The 4th ventricle is midline. The cerebellopontine angle i s unremarkable. EXTRACRANIAL: The visualized portion of the orbits is intact. SKULL: The calvaria is intact. No evidence of skull fracture. CONCLUSION: No acute disease. Roly Brantley MD FACR on December 30, 2017 at 20:21 Board Certified Radiologist. This report was verified electronically.
--- NOTE | 2017-12-30 20:44 | HHI.HP ---
[facility] Critical Care Medicine Primary Care Physician Gabriel Gil, DO Admission Diagnosis Hepatic encephalopathy/end-stage liver disease/SBP Diagnosis: (1) Hepatic encephalopathy Diagnosis: Principal (2) End-stage liver disease Diagnosis: Secondary (3) Cirrhosis with alcoholism Diagnosis: Secondary (4) Leukocytosis Diagnosis: Secondary Travel History International Travel<30 Days: No Contact w/Intl Traveler <30 Da: No Traveled to Known Affected Are: No History of Present Illness 37-year-old male with past medical history of end-stage liver disease , alcohol abuse, hepatorenal syndrome, whose parents brought him to [facility] emergency department due to confusion that started yesterday evening and became progressively worse. He reportedly was having "trouble getting words out" and couldn't figure out how use his cell phone properly. His mother had contacted his physician who recommended additional dose of lactulose last night and this morning. He has been nauseated with decreased appetite but denied vomiting. He reports some mild vague abdominal pain. No fever. He says he has had been having 3-4 bowel movements per day and has been compliant with rifaximin and lactulose as prescribed. ED workup revealed white blood cell count 27.9, normal platelet count. Potassium was 6.6 but this appeared to be a hemolyzed specimen. Ammonia level is 99. I have obtained CT brain which is negative. Patient went to follow up appointments with Dr. Lopez with gastroenterology and Dr. Coronado with nephrology yesterday. He has been having progressively worsening edema and a diuretic was prescribed but it has not yet been filled. He was recently admitted under [facility] act on 12/23 due to combative behavior and refusing to take medications. Past Family Social History Allergies: Coded Allergies: No Known Allergies (Verified , 12/30/17) Past Medical History End-stage liver disease Alcohol abuse Past Surgical History None Reported Medications Medication list was reviewed with mother in detail: Sodium bicarbonate 650 g by mouth every 8 hours Rifaximin 550 mEq by mouth twice a day Prednisolone 40 mg by mouth daily Potassium chloride 20 mEq by mouth twice a day Vitamin K 5 mg by mouth daily Pentoxifylline 40 mg by mouth every 8 hours Midrin 2.5 mg by mouth 3 times a day Octreotide 200 g subcutaneous every 8 hours Oxycodone 5 mg by mouth every 4 hours Pantoprazole 40 mg by mouth daily Lactose 30 ML's 4 times per day Vitamin D3 1000 units by mouth daily Cholestyramine 4 g by mouth 3 times a day B-12 100 mg by mouth daily Folic acid 1 mg by mouth daily Hydroxyzine 50 mg by mouth every 6 hours as needed for itching Family History Mother has kidney stones Father has no relevant medical history Sister had malignant hyperthermia Social History He previously drank alcohol "excessively" but his family is not able to quantify because they state that he hid it from them for many years. He has abstained from alcohol for the last month. He recently lost 100 pounds after his fianc broke off the engagement. He has smoked since he was a teenager and still smokes bout 4 cigarettes per day His parents are visiting from [place] and has been staying with him for the last month. Physical Exam Vital Signs Vital Signs Date Time Temp Pulse Resp B/P (MAP) Pulse Ox O2 Delivery O2 Flow Rate FiO2 12/30/17 19:21 88 14 98 Room Air 12/30/17 19:20 88 14 129/75 (93) 100 Room Air 12/30/17 17:29 105 16 136/75 (95) 100 Room Air 12/30/17 15:43 97.9 96 17 134/60 (84) 100 Physical Exam GENERAL: Ill-appearing jaundiced male who is laying in ED stretcher. SKIN: Warm and dry, jaundice. There are 2 lesions on his forehead and multiple lesions on his arms from picking behavior. No superinfection noted. HEAD: Atraumatic. Normocephalic. EYES: Pupils equal and round, 3 mm and reactive. + Icteric ENT: No nasal bleeding or discharge. Mucous membranes pink and moist. NECK: Trachea midline. No JVD. CARDIOVASCULAR: Regular rate and rhythm. No murmurs rubs or gallops. RESPIRATORY: No accessory muscle use. Clear to auscultation. Breath sounds equal bilaterally. On RA. GASTROINTESTINAL: Abdomen soft, mildly distended with ascites but not taught. Anasarca with pitting edema of abdominal wall. MUSCULOSKELETAL: Extremities without clubbing, cyanosis. 2-3+ pitting edema at least up to knees but difficult to exam because his jeans have not been removed. No erythema or palpable calf cords. NEUROLOGICAL: Awake and alert, oriented to person, place. Not to year. No obvious cranial nerve deficits. EOMI with no nystagmus. Strength 5 out of 5 in all extremities. Sensation is intact. Laboratory Laboratory Tests Test 12/30/17 16:10 12/30/17 18:55 12/30/17 19:20 White Blood Count 27.9 Red Blood Count 3.27 Hemoglobin 11.5 Hematocrit 33.5 Mean Corpuscular Volume 102.4 Mean Corpuscular Hemoglobin 35.1 Mean Corpuscular Hemoglobin Concent 34.3 Red Cell Distribution Width 19.0 Platelet Count 338 Mean Platelet Volume 11.4 Neutrophils (%) (Auto) 81.3 Lymphocytes (%) (Auto) 10.9 Monocytes (%) (Auto) 6.8 Eosinophils (%) (Auto) 0.9 Basophils (%) (Auto) 0.1 Neutrophils # (Auto) 22.6 Lymphocytes # (Auto) 3.0 Monocytes # (Auto) 1.9 Eosinophils # (Auto) 0.2 Basophils # (Auto) 0.0 CBC Comment DIFF FINAL Differential Comment Prothrombin Time 18.0 Prothromb Time International Ratio 1.8 Activated Partial Thromboplast Time 27.8 Blood Urea Nitrogen 17 Creatinine 1.19 Random Glucose 97 Total Protein 7.2 Albumin 2.5 Calcium Level 8.7 Alkaline Phosphatase 192 Aspartate Amino Transf (AST/SGOT) 205 Alanine Aminotransferase (ALT/SGPT) 180 Total Bilirubin 23.8 Sodium Level 137 Potassium Level 6.6 3.7 Chloride Level 109 Carbon Dioxide Level 22.2 Anion Gap 6 Estimat Glomerular Filtration Rate 68 Ammonia 99 Thyroid Stimulating Hormone 3rd Gen 0.431 Blood Gas Puncture Site RT RADIAL Blood Gas Patient Temperature 98.6 Blood Gas HCO3 16 Blood Gas Base Excess -7.7 Blood Gas Oxygen Saturation 97 Arterial Blood pH 7.38 Arterial Blood Partial Pressure CO2 28 Arterial Blood Partial Pressure O2 103 Arterial Blood Oxygen Content 15.1 Arterial Blood Carboxyhemoglobin 0.9 Arterial Blood Methemoglobin 0.0 Blood Gas Hemoglobin 11.0 Oxygen Delivery Device ROOM AIR Blood Gas Inspired Oxygen 21 Date/Time Source Procedure Growth Status 12/30/17 19:20 Blood Peripheral Aerobic Blood Culture Pending Received 12/30/17 19:20 Blood Peripheral Anaerobic Blood Culture Pending Received Result Diagram: 12/30/17 1610 12/30/17 1920 Septic Shock Reassessment Septic shock perfusion: reassessment completed Caprini VTE Risk Assessment Caprini VTE Risk Assessment: Mod/High Risk (score >= 2) VTE Pharm Contraindication: End Stage Liver Disease Caprini Risk Assessment Model Point Value = 1 Point Value = 2 Point Value = 3 Point Value = 5 Age 41-60 Minor surgery BMI > 25 kg/m2 Swollen legs Varicose veins or History of unexplained or recurrent spontaneous Oral contraceptives or hormone replacement Sepsis (< 1 month) Serious lung disease, including pneumonia (< 1 month) Abnormal pulmonary function Acute myocardial infarction Congestive heart failure (< 1 month) History of inflammatory bowel disease Medical patient at bed rest Age 61-74 Arthroscopic surgery Major open surgery (> 45 min) Laparoscopic surgery (> 45 min) Malignancy Confined to bed (> 72 hours) Immobilizing plaster cast Central venous access Age >= 75 History of VTE Family history of VTE Factor V Leiden Prothrombin [id number] Lupus anticoagulant Anticardiolipin antibodies Elevated serum homocysteine Heparin-induced thrombocytopenia Other congenital or acquired thrombophilia Stroke (< 1 month) Elective arthroplasty Hip, pelvis, or leg fracture Acute spinal cord injury (< 1 month) Prophylaxis Regimen Total Risk Factor Score Risk Level Prophylaxis Regimen 0-1 Low Early ambulation 2 Moderate Order ONE of the following: *Sequential Compression Device (SCD) *Heparin 5000 units SQ BID 3-4 Higher Order ONE of the following medications: *Heparin 5000 units SQ TID *Enoxaparin/Lovenox 40 mg SQ daily (WT < 150 kg, CrCl > 30 mL/min) *Enoxaparin/Lovenox 30 mg SQ daily (WT < 150 kg, CrCl > 10-29 mL/min) *Enoxaparin/Lovenox 30 mg SQ BID (WT < 150 kg, CrCl > 30 mL/min) AND/OR *Sequential Compression Device (SCD) 5 or more Highest Order ONE of the following medications: *Heparin 5000 units SQ TID (Preferred with Epidurals) *Enoxaparin/Lovenox 40 mg SQ daily (WT < 150 kg, CrCl > 30 mL/min) *Enoxaparin/Lovenox 30 mg SQ daily (WT < 150 kg, CrCl > 10-29 mL/min) *Enoxaparin/Lovenox 30 mg SQ BID (WT < 150 kg, CrCl > 30 mL/min) AND *Sequential Compression Device (SCD) Assessment and Plan Problem List: (1) Hepatic encephalopathy ICD Code: K72.90 - Hepatic failure, unspecified without coma Status: Acute (2) Hyperammonemia ICD Code: E72.20 - Disorder of urea cycle metabolism, unspecified Status: Acute (3) Cirrhosis with alcoholism ICD Code: K70.30 - Alcoholic cirrhosis of liver without ascites Status: Chronic (4) Leukocytosis ICD Code: D72.829 - Elevated white blood cell count, unspecified Assessment and Plan NEURO: Acute hepatic encephalopathy. Ammonia level 99. Change rifaximin 40 mg by mouth every 8 hours, lactulose 45 ML's by mouth 4 times a day. Follow-up ammonia level H/o psychosis. continue Invega 3 mg by mouth daily per psychiatry CT brain no acute abnormality h/o ETOH abuse Reportedly no EtOH x1 month. Thiamine 100 mg po daily x5 days. Monitor for any evidence of withdrawal. RESP: On room air. IS q1 hour CV: Monitor hemodynamics GI: ESLD MELD 26 Continue prednisone 40 mg by mouth daily, pentoxifylline 40 mg by mouth every 8 hours, cholestyramine 4 g by mouth 3 times a day. John follows outpatient FEN/RENAL: ELKIN secondary to Hepatorenal syndrome, creatinine improved Continue Midrin 2.5 mg by mouth 3 times a day, continue octreotide 20 g by mouth every 8 hours as long as repeat potassium is low or normal. Previously has been hypokalemic and on supplementation, hold for now pending repeat lab. Will likely need spironolactone and lasix but will hold off for now until after paracentesis. Albumin 25 gram IV daily. ID/HEME: ?SBP Mild abdominal discomfort and with worsening hepatic encephalopathy SBP is a consideration. Received a dose of Zosyn in the emergency department already. There is a shortage of cefotaxime. Will use Rocephin 2 g IV daily. Will obtain diagnostic and therapeutic ultrasound-guided paracentesis with cell count and culture. Peripheral smear 12/14/17 with reactive features. Previously evaluated by hematology Continue vitamin K 5 mg by mouth daily, vitamin B-12 100 g by mouth daily, folic acid 1 mg by mouth daily ENDO: Euglycemic. Monitor bedside glucose is 6 hours PROPH: SCDs for DVT prophylaxis. Avoid pharmacologic DVT prophylaxis due to coagulopathy and need for procedure. Protonix 40 mg by mouth daily. ACCESS: Peripheral IV providing adequate access at this time. Discussed with emergency medicine physician. Both parents were updated at bedside. Multiple questions answered. Level III H&P Kelly Mac MD Dec 30, 2017 20:44
[2017-12-30] MEDS ORDERED: MISCELLANEOUS NURSING INFORMATION XX SCH (21:00)
[2017-12-30] MEDS ORDERED: ONDANSETRON HCL 4 MG/2 ML VIAL IV PUSH PRN (21:00)
[2017-12-30] MEDS ORDERED: RESP: ALBUTEROL 2.5 MG/3 ML NEB (PRN) INH (21:00)
[2017-12-30] MEDS ORDERED: CHLORHEXIDINE GLUCONATE 2 % 1 PACK (2 CLOTHS) TOP PRN (21:00)
[2017-12-30 21:06] LABS: FREE T3 1.86 PG/ML (2.18-3.98); FREE T4 0.81 NG/DL (0.76-1.46)
[2017-12-30 22:24] VITALS: O2SAT 97
[2017-12-30 23:00] VITALS: BP 125/72; PULSE 82; RESP 17; O2SAT 98
[2017-12-30] MEDS: LACTULOSE SYRUP 20 GM/30 ML CUP PO SCH (23:07)
[2017-12-30] MEDS: PENTOXIFYLLINE 400 MG CONTROLLED RELEASE TAB PO SCH (23:07)
[2017-12-30] MEDS: SODIUM CHLORIDE 0.9% FLUSH 10 ML FLUSH IV FLUSH SCH (23:07)
[2017-12-30] MEDS: OCTREOTIDE INJ 500 MCG/ML AMP SQ SCH (23:07)
[2017-12-30] MEDS: RIFAXIMIN 200 MG TAB PO SCH (23:28)
[2017-12-31] VITALS (10 sets, daily range): BP systolic 93–141; BP diastolic 58–82; PULSE 76–94; RESP 14–25; TEMP 97.8–98; O2SAT 96–100
[2017-12-31] MEDS: cefTRIAXone INJ 2,000 MG in SODIUM CHLORIDE 0.9% INJ 100 ML IV SCH (00:48)
[2017-12-31 02:01] LABS: TOTAL PROTEIN 7.2 GM/DL (6.4-8.2)
[2017-12-31] MEDS: CHLORHEXIDINE GLUCONATE 2 % 1 PACK (2 CLOTHS) TOP SCH (04:00)
[2017-12-31 05:26] LABS: ALT (GPT) 156 U/L (12-78); PHOSPHORUS 2.1 MG/DL (2.5-4.9)
[2017-12-31 05:30] LABS: ALBUMIN 2.3 GM/DL (3.4-5.0); AST (GOT) 130 U/L (15-37); BICARBONATE 19.5 MEQ/L (21.0-32.0); CALCIUM 8.3 MG/DL (8.5-10.1); CHLORIDE 110 MEQ/L (98-107); GLOMERULAR FILTRATION RATE 67 ML/MIN (>89); GLUCOSE,RANDOM 95 MG/DL (74-106); INTERNATIONAL NORMALIZED RATIO 1.8 RATIO; MAGNESIUM 1.9 MG/DL (1.5-2.5); PROTHROMBIN TIME - PATIENT 18.6 SEC (9.8-11.6); SODIUM (NA) 140 MEQ/L (136-145)
[2017-12-31 05:31] LABS: ALKALINE PHOSPHATASE 175 U/L (45-117); BLOOD UREA NITROGEN 15 MG/DL (7-18); TOTAL PROTEIN 5.9 GM/DL (6.4-8.2)
[2017-12-31] MEDS: RIFAXIMIN 200 MG TAB PO SCH ×3 (06:03→22:21)
[2017-12-31] MEDS: PENTOXIFYLLINE 400 MG CONTROLLED RELEASE TAB PO SCH ×3 (06:03→22:21)
[2017-12-31] MEDS: OCTREOTIDE INJ 500 MCG/ML AMP SQ SCH ×3 (06:04→22:22)
[2017-12-31] MEDS: MIDODRINE 5 MG TAB PO SCH ×3 (06:41→18:05)
[2017-12-31] MEDS: FOLIC ACID 1 MG TAB PO SCH (08:45)
[2017-12-31] MEDS: SODIUM CHLORIDE 0.9% FLUSH 10 ML FLUSH IV FLUSH SCH ×2 (08:45→22:20)
[2017-12-31] MEDS: CHOLECALCIFEROL (VIT D3) 1000 UNIT TAB PO SCH (08:45)
[2017-12-31] MEDS: ALBUMIN 25% INJ 100 ML IV SCH ×2 (08:45→22:25)
[2017-12-31] MEDS: PANTOPRAZOLE SOD 40 MG DELAYED RELEASE TAB PO SCH (08:46)
[2017-12-31] MEDS: LACTULOSE SYRUP 20 GM/30 ML CUP PO SCH ×4 (08:46→22:21)
[2017-12-31] MEDS ORDERED: PHYTONADIONE 5 MG TAB PO SCH (09:00)
[2017-12-31] MEDS: CHOLESTYRAMINE 4 GM PACKET PO SCH ×3 (09:56→18:05)
[2017-12-31] MEDS: CYANOCOBALAMIN 100 MCG TAB PO SCH (09:56)
[2017-12-31] MEDS: PALIPERIDONE ER 3 MG TAB PO SCH (09:56)
[2017-12-31 09:57] LABS: AUTOMATED NEUTROPHIL # 18.1 TH/MM3 (1.8-7.7); BASOPHIL % 0.1 % (0.0-2.0); EOSINOPHIL # 0.2 TH/MM3 (0-0.4); HEMATOCRIT 30.9 % (39.0-51.0); HEMOGLOBIN 10.7 GM/DL (13.0-17.0); LYMPH % 7.2 % (9.0-44.0); LYMPHOCYTE # 1.5 TH/MM3 (1.0-4.8); MEAN CELL VOLUME 102.5 FL (80.0-100.0); MEAN CORPUSCULAR HEMOGLOBIN 35.3 PG (27.0-34.0); MEAN CORPUSCULAR HGB CONC 34.5 % (32.0-36.0); MEAN PLATELET VOLUME 9.5 FL (7.0-11.0); MONO % 7.1 % (0.0-8.0); MONOCYTE # 1.5 TH/MM3 (0-0.9); NEUT % 84.6 % (16.0-70.0); PLATELET COUNT 148 TH/MM3 (150-450); RED BLOOD COUNT 3.02 MIL/MM3 (4.50-5.90); RED CELL DISTRIBUTION WIDTH 17.8 % (11.6-17.2); WHITE BLOOD COUNT 21.4 TH/MM3 (4.0-11.0)
[2017-12-31] MEDS: PHYTONADIONE 5 MG/SWFI 5 ML ORAL SYR PO SCH (09:57)
[2017-12-31] MEDS: prednisoLONE 10 MG ODT TAB PO SCH (09:57)
[2017-12-31 11:14] LABS: ACANTHOCYTES OCC (NORMAL)
[2017-12-31] MEDS: THIAMINE HCL 100 MG TAB PO SCH (13:14)
[2017-12-31] MEDS ORDERED: LIDOCAINE HCL 1% PF 10 ML VIAL ONE (17:55)
--- NOTE | 2017-12-31 17:58 | EKG ---
Date Performed: 12/30/2017 Time Performed: 16:12:18 PTAGE: 37 years EKG: Sinus rhythm MODERATE VOLTAGE CRITERIA FOR LVH, CONSIDER NORMAL VARIANT NONSPECIFIC ST & T-WAVE ABNORMALITY DINAH LE ECG NO PREVIOUS TRACING DOCTOR: Stefan Lucio Interpretating Date/Time 12/31/2017 17:57:17
--- NOTE | 2017-12-31 18:07 | RADRPT ---
EXAM DATE/TIME: 12/31/2017 16:30 [facility] COMPARISON: US GUIDED ABD PARACENTESIS, December 09, 2017, 14:45. INDICATIONS : Ascites. MEDICAL HISTORY : Gastroesophageal reflux disease. Hepatitis. ETOH use daily. Asthma SURGICAL HISTORY : Fatty tumor removed from skull. ENCOUNTER: Subsequent ACUITY: 3 weeks PAIN SCORE: 0/10 LOCATION: Right lower quadrant FLUID: Total volume of 8,000 cc of clear, yellow fluid was removed. Fluid was sent to lab for ordered studies. Post procedure scanning reveals no hematoma or other complication. TECHNIQUE: 1. Ultrasound guidance for abdominal paracentesis. 2. Paracentesis. The risks, benefits, and alternatives to ultrasound guided paracentesis were explained to the patient in detail including the risk of bleeding and infection. Written and verbal informed consent was obt ained. With the patient on the ultrasound table, ultrasound imaging was used to select the most appropriate approach for paracentesis. Overlying skin was prepped and draped in the usual sterile fashion and wi th a local anesthetic, a dermatotomy was made with an 11 blade scalpel. A 6 [place] [id number] ca theter was introduced into the peritoneal cavity and fluid was collected. The patient tolerated the procedure well and left the ultrasound suite in stable condition. CONCLUSION: Uncomplicated ultrasound guided paracentesis. Julian Brantley MD on December 31, 2017 at 18:04 Board Certified Radiologist. This report was verified electronically.
--- NOTE | 2017-12-31 20:13 | HHI.CCPN ---
Subjective Remarks/Hospital Course 37-year-old male with past medical history of end-stage liver disease , alcohol abuse, hepatorenal syndrome, whose parents brought him to [facility] emergency department due to confusion that started yesterday evening and became progressively worse. He reportedly was having "trouble getting words out" and couldn't figure out how use his cell phone properly. His mother had contacted his physician who recommended additional dose of lactulose last night and this morning. He has been nauseated with decreased appetite but denied vomiting. He reports some mild vague abdominal pain. No fever. He says he has had been having 3-4 bowel movements per day and has been compliant with rifaximin and lactulose as prescribed. ED workup revealed white blood cell count 27.9, normal platelet count. Potassium was 6.6 but this appeared to be a hemolyzed specimen. Ammonia level is 99. I have obtained CT brain which is negative. Patient went to follow up appointments with Dr. Lopez with gastroenterology and Dr. Coronado with nephrology yesterday. He has been having progressively worsening edema and a diuretic was prescribed but it has not yet been filled. He was recently admitted under Panda act on 12/23 due to combative behavior and refusing to take medications. Subjective: 12/31: Late entry note. Patient seen at 7:30 AM, prior to transfer to ICU. Patient with lethargic, but easily arousable. Patient denies pain protecting airway. Patient noted still confused this a.m.. Underwent paracentesis this evening, with approximately 8 L removed. Patient continues on Midrin 3 times daily, and albumin 25% daily Objective Vital Signs Date Time Temp Pulse Resp B/P (MAP) Pulse Ox O2 Delivery O2 Flow Rate FiO2 12/31/17 18:00 94 12/31/17 16:00 97.9 25 128/78 (95) 100 12/31/17 05:26 Room Air Intake and Output 12/31/17 12/31/17 01/01/18 08:00 16:00 00:00 Intake Total 200 ml 100 ml 400 ml Balance 200 ml 100 ml 400 ml Result Diagram: 12/31/17 0850 12/31/17 0434 Imaging Last Impressions Cyst Biopsy Asp-Paracentesis US 12/31/17 0000 Signed Impressions: Service Date/Time: Sunday, December 31, 2017 16:30 - CONCLUSION: Uncomplicated ultrasound guided paracentesis. Julian Brantley MD Head CT 12/30/17 0000 Signed Impressions: Service Date/Time: Saturday, December 30, 2017 19:58 - CONCLUSION: No acute disease. Roly Brantley MD FACR Objective Remarks GENERAL: Ill-appearing jaundiced male who is laying in ED stretcher, lethargic SKIN: Warm and dry, jaundice. There are 2 lesions on his forehead and multiple lesions on his arms from picking behavior. No superinfection noted. HEAD: Atraumatic. Normocephalic. EYES: Pupils equal and round, 3 mm and reactive. + Icteric ENT: No nasal bleeding or discharge. Mucous membranes pink and moist. NECK: Trachea midline. No JVD. CARDIOVASCULAR: Regular rate and rhythm. No murmurs rubs or gallops. RESPIRATORY: No accessory muscle use. Clear to auscultation. Breath sounds equal bilaterally. On RA. GASTROINTESTINAL: Abdomen soft, mildly distended with ascites but not taut. Anasarca with pitting edema of abdominal wall. MUSCULOSKELETAL: Extremities without clubbing, cyanosis. 2-3+ pitting edema at least up to knees but difficult to exam because his jeans have not been removed. No erythema or palpable calf cords. NEUROLOGICAL: Awake and alert, oriented to person, place. Not to year. No obvious cranial nerve deficits. EOMI with no nystagmus. Strength 5/5 bilateral upper and lower extremities. Sensation is intact. A/P Assessment and Plan NEURO: Acute hepatic encephalopathy H/O psychosis History of alcohol use disorder Continue Invega 3 mg by mouth daily per psychiatry Ammonia level 99. Rifaximin 40 mg by mouth every 8 hours, lactulose 45 cc by mouth 4 times a day. Trend ammonia level by mouth CT brain no acute abnormality Reportedly no EtOH x1 month. Thiamine 100 mg po daily x5 days. Monitor for any evidence of withdrawal Seizure precautions RESP: Maintain O2 sat greater than 92% On room air, O2 saturation 97 Encourage incentive spirometry q1 hour while awake CV: Maintain MAP > 65 Monitor hemodynamics Continue Midrin 3 times daily Continue albumin 25% daily Monitor for hypotension-status post paracentesis with 8 L removal of fluid GI: ESLD MELD 26 Continue prednisone 40 mg by mouth daily, pentoxifylline 40 mg by mouth every 8 hours, cholestyramine 4 g by mouth 3 times a day. John follows outpatient FEN/RENAL: ELKIN secondary to Hepatorenal syndrome, creatinine improved Continue Midrin 2.5 mg by mouth 3 times a day, continue octreotide 20 g by mouth every 8 hours as long as repeat potassium is low or normal. Previously has been hypokalemic and on supplementation, hold for now pending repeat lab. Will likely need spironolactone and lasix but will hold off for now until after paracentesis. Albumin 25 gram IV daily. ID/HEME: ?SBP Mild abdominal discomfort and with worsening hepatic encephalopathy SBP is a consideration. Received a dose of Zosyn in the emergency department already. There is a shortage of cefotaxime. Continue Rocephin 2 g IV daily. 12/31 S/P diagnostic and therapeutic ultrasound-guided paracentesis (8L ) F/U with cell count and culture. Peripheral smear 12/14/17 with reactive features. Previously evaluated by hematology Continue vitamin K 5 mg by mouth daily, vitamin B-12 100 g by mouth daily, folic acid 1 mg by mouth daily ENDO: Euglycemic. Monitor bedside glucose is 6 hours PROPH: SCDs for DVT prophylaxis. Avoid pharmacologic DVT prophylaxis due to coagulopathy and need for procedure. Protonix 40 mg by mouth daily. ACCESS: Peripheral IV providing adequate access at this time. Both parents at bedside divided update on medical status. Discussed with GAS WELDING MACHINE OPERATOR at bedside Level III follow up Physician Digna Fournier MD Dec 31, 2017 20:13
[2017-12-31 20:53] LABS: PERITONEAL HISTIOCYTES 14 %; PERITONEAL LYMPHS 62 %; PERITONEAL MESOTHELIAL 10 %; PERITONEAL MONOS 1 %; PERITONEAL POLYS(SEGS) 13 %; PERITONEAL RBC 0 /MM3 (0-0)
[2018-01-01] VITALS (12 sets, daily range): BP systolic 121–135; BP diastolic 75–86; PULSE 70–109; RESP 13–21; TEMP 97.8–98.8; O2SAT 100
[2018-01-01] MEDS: ALBUMIN 25% INJ 100 ML IV SCH ×2 (00:31→09:54)
[2018-01-01] MEDS: cefTRIAXone INJ 2,000 MG in SODIUM CHLORIDE 0.9% INJ 100 ML IV SCH (00:39)
[2018-01-01] MEDS: CHLORHEXIDINE GLUCONATE 2 % 1 PACK (2 CLOTHS) TOP SCH (04:00)
[2018-01-01] MEDS: RIFAXIMIN 200 MG TAB PO SCH ×3 (06:02→20:49)
[2018-01-01] MEDS: OCTREOTIDE INJ 500 MCG/ML AMP SQ SCH ×3 (06:02→20:49)
[2018-01-01] MEDS: PENTOXIFYLLINE 400 MG CONTROLLED RELEASE TAB PO SCH ×3 (06:02→20:48)
[2018-01-01] MEDS: MIDODRINE 5 MG TAB PO SCH ×3 (06:02→17:29)
[2018-01-01] MEDS: SODIUM CHLORIDE 0.9% FLUSH 10 ML FLUSH IV FLUSH SCH ×2 (09:00→20:48)
[2018-01-01] MEDS: CHOLESTYRAMINE 4 GM PACKET PO SCH ×3 (09:50→17:29)
[2018-01-01] MEDS: PALIPERIDONE ER 3 MG TAB PO SCH (09:51)
[2018-01-01] MEDS: LACTULOSE SYRUP 20 GM/30 ML CUP PO SCH ×4 (09:51→20:48)
[2018-01-01] MEDS: FOLIC ACID 1 MG TAB PO SCH (09:51)
[2018-01-01] MEDS: prednisoLONE 10 MG ODT TAB PO SCH (09:53)
[2018-01-01] MEDS: PANTOPRAZOLE SOD 40 MG DELAYED RELEASE TAB PO SCH (09:54)
[2018-01-01] MEDS: THIAMINE HCL 100 MG TAB PO SCH (09:54)
[2018-01-01] MEDS: CYANOCOBALAMIN 100 MCG TAB PO SCH (09:54)
[2018-01-01] MEDS: CHOLECALCIFEROL (VIT D3) 1000 UNIT TAB PO SCH (09:54)
[2018-01-01] MEDS: PHYTONADIONE 5 MG/SWFI 5 ML ORAL SYR PO SCH (09:54)
--- NOTE | 2018-01-01 10:09 | HHI.CCPN ---
Subjective Remarks/Hospital Course 37-year-old male with past medical history of end-stage liver disease , alcohol abuse, hepatorenal syndrome, whose parents brought him to [facility] emergency department due to confusion that started evening prior to admission and became progressively worse. He reportedly was having "trouble getting words out" and couldn't figure out how use his cell phone properly. His mother had contacted his physician who recommended additional dose of lactulose last night and this morning. He has been nauseated with decreased appetite but denied vomiting. He reports some mild vague abdominal pain. No fever. He says he has had been having 3-4 bowel movements per day and has been compliant with rifaximin and lactulose as prescribed. ED workup revealed white blood cell count 27.9, normal platelet count. Potassium was 6.6 but this appeared to be a hemolyzed specimen. Ammonia level is 99. I have obtained CT brain which is negative. Patient went to follow up appointments with Dr. Lopez with gastroenterology and Dr. Coronado with nephrology yesterday. He has been having progressively worsening edema and a diuretic was prescribed but it has not yet been filled. He was recently admitted under Panda act on 12/23 due to combative behavior and refusing to take medications. Subjective: 12/31: Late entry note. Patient seen at 7:30 AM, prior to transfer to ICU. Patient with lethargic, but easily arousable. Patient denies pain protecting airway. Patient noted still confused this a.m.. Underwent paracentesis this evening, with approximately 8 L removed. Patient continues on Midrin 3 times daily, and albumin 25% daily 01/01: Intermittently confused, requiring restraints overnight. Hemodynamically stable. Status post paracentesis and a liter fluid removal. Ammonia level pending today. Oriented to person and place. Objective Vital Signs Date Time Temp Pulse Resp B/P (MAP) Pulse Ox O2 Delivery O2 Flow Rate FiO2 01/01/18 06:00 76 01/01/18 04:00 97.9 18 135/86 (102) 100 12/31/17 05:26 Room Air Intake and Output 01/01/18 01/01/18 01/02/18 08:00 16:00 00:00 Intake Total 340 ml Balance 340 ml Result Diagram: 12/31/17 0850 12/31/17 0434 Imaging Last Impressions Cyst Biopsy Asp-Paracentesis US 12/31/17 0000 Signed Impressions: Service Date/Time: Sunday, December 31, 2017 16:30 - CONCLUSION: Uncomplicated ultrasound guided paracentesis. Julian Brantley MD Head CT 12/30/17 0000 Signed Impressions: Service Date/Time: Saturday, December 30, 2017 19:58 - CONCLUSION: No acute disease. Roly Brantley MD FACR Objective Remarks GENERAL: Ill-appearing jaundiced male who is laying in [facility] bed SKIN: Warm and dry, jaundice. There are 2 lesions on his forehead and multiple lesions on his arms from picking HEAD: Atraumatic. Normocephalic. EYES: Pupils equal and round, 3 mm and reactive. + Icteric ENT: No nasal bleeding or discharge. Mucous membranes pink and moist. NECK: Trachea midline. No JVD. CARDIOVASCULAR: Regular rate and rhythm. No murmurs rubs or gallops. RESPIRATORY: No accessory muscle use. Clear to auscultation. Breath sounds equal bilaterally. On RA. GASTROINTESTINAL: Abdomen soft, mildly distended. Anasarca with pitting edema of abdominal wall. MUSCULOSKELETAL: Extremities without clubbing, cyanosis. 2-3+ pitting edema at least up to knees. No erythema or palpable calf cords. NEUROLOGICAL: Awake and alert, oriented to person, place. Not to year. No obvious cranial nerve deficits. Strength 5/5 bilateral upper and lower extremities. Sensation is intact. A/P Assessment and Plan NEURO: Acute hepatic encephalopathy H/O psychosis History of alcohol dependence Continue Invega 3 mg by mouth daily per psychiatry Ammonia level 99, down to 39 on 12/31 Rifaximin 40 mg by mouth every 8 hours, lactulose 45 cc by mouth 4 times a day. Trend ammonia level CT brain no acute abnormality Reportedly no EtOH x1 month. Thiamine 100 mg po daily x5 days. Monitor for any evidence of withdrawal Seizure precautions RESP: Maintain O2 sat greater than 92% On room air, O2 saturation 97 Encourage incentive spirometry q1 hour while awake CV: Maintain MAP > 65 Monitor hemodynamics Continue Midrin 3 times daily Continue albumin 25% daily Monitor for hypotension-status post paracentesis with 8 L removal of fluid GI: ESLD MELD 26 Continue prednisone 40 mg by mouth daily, pentoxifylline 40 mg by mouth every 8 hours, cholestyramine 4 g by mouth 3 times a day. John follows outpatient FEN/RENAL: ELKIN secondary to Hepatorenal syndrome, creatinine improved Continue Midrin 2.5 mg by mouth 3 times a day, continue octreotide 20 g by mouth every 8 hours as long as repeat potassium is low or normal. Previously has been hypokalemic and on supplementation, hold for now pending repeat lab. Start Aldactone 25 mg BID Albumin 25 gram IV daily. ID/HEME: SBP ruled out Mild abd discomfort and with worsening hepatic encephalopathy SBP ruled out by fluid studies Status post paracentesis with 8 L removed yesterday Received a dose of Zosyn in the emergency department already. There is a shortage of cefotaxime. Continue Rocephin 2 g IV daily. 12/31 S/P diagnostic and therapeutic ultrasound-guided paracentesis (8L ) F/U with cell count and culture. Peripheral smear 12/14/17 with reactive features. Previously evaluated by hematology Continue vitamin K 5 mg by mouth daily, vitamin B-12 100 g by mouth daily, folic acid 1 mg by mouth daily ENDO: Euglycemic. Monitor bedside glucose is 6 hours PROPH: SCDs for DVT prophylaxis. Avoid pharmacologic DVT prophylaxis due to coagulopathy and need for procedure. Protonix 40 mg by mouth daily. ACCESS: Peripheral IV providing adequate access at this time. Both parents at bedside divided update on medical status. Discussed with BROACH GRINDER at bedside Level II follow up Transfer to [facility]. Consult Hospitalist service Michael Jansen MD Jan 01, 2018 10:09
[2018-01-01 14:00] LABS: AUTOMATED NEUTROPHIL # 16.5 TH/MM3 (1.8-7.7); BASOPHIL # 0.1 TH/MM3 (0-0.2); BASOPHIL % 0.3 % (0.0-2.0); EOSINOPHIL # 0.1 TH/MM3 (0-0.4); EOSINOPHIL % 0.6 % (0.0-4.0); HEMATOCRIT 32.6 % (39.0-51.0); HEMOGLOBIN 11.5 GM/DL (13.0-17.0); LYMPHOCYTE # 2.9 TH/MM3 (1.0-4.8); MEAN CELL VOLUME 101.5 FL (80.0-100.0); MEAN CORPUSCULAR HEMOGLOBIN 35.9 PG (27.0-34.0); MEAN CORPUSCULAR HGB CONC 35.4 % (32.0-36.0); MEAN PLATELET VOLUME 9.6 FL (7.0-11.0); MONO % 5.1 % (0.0-8.0); PLATELET COUNT 163 TH/MM3 (150-450); RED BLOOD COUNT 3.21 MIL/MM3 (4.50-5.90); RED CELL DISTRIBUTION WIDTH 18.1 % (11.6-17.2); WHITE BLOOD COUNT 20.6 TH/MM3 (4.0-11.0)
[2018-01-01 14:31] LABS: ALBUMIN 2.5 GM/DL (3.4-5.0); ALKALINE PHOSPHATASE 189 U/L (45-117); ALT (GPT) 156 U/L (12-78); AST (GOT) 124 U/L (15-37); BICARBONATE 19.1 MEQ/L (21.0-32.0); BLOOD UREA NITROGEN 13 MG/DL (7-18); CALCIUM 8.4 MG/DL (8.5-10.1); CHLORIDE 109 MEQ/L (98-107); CREATININE 0.89 MG/DL (0.60-1.30); GLOMERULAR FILTRATION RATE 95 ML/MIN (>89); GLUCOSE,RANDOM 110 MG/DL (74-106); MAGNESIUM 1.7 MG/DL (1.5-2.5); SODIUM (NA) 140 MEQ/L (136-145); TOTAL BILIRUBIN ADULT 22.3 MG/DL (0.2-1.0); TOTAL PROTEIN 6.3 GM/DL (6.4-8.2)
[2018-01-01 14:41] LABS: BANDS 7 % (0-6); LYMPHOCYTES 5 % (9-44); MONOCYTES 3 % (0-8); NEUTROPHIL # MANUAL DIFF 18.7 TH/MM3 (1.8-7.7); POLYS (SEG NEUTROPHILS) 84 % (16-70)
[2018-01-01 14:42] LABS: TARGET CELLS 1+ (NORMAL)
[2018-01-01] MEDS: SPIRONOLACTONE 25 MG TAB PO SCH (17:29)
[2018-01-02] VITALS (12 sets, daily range): BP systolic 121–141; BP diastolic 76–93; PULSE 63–114; RESP 13–32; TEMP 97.7–99; O2SAT 99–100
[2018-01-02] MEDS: cefTRIAXone INJ 2,000 MG in SODIUM CHLORIDE 0.9% INJ 100 ML IV SCH (01:08)
[2018-01-02] MEDS: CHLORHEXIDINE GLUCONATE 2 % 1 PACK (2 CLOTHS) TOP SCH (04:00)
[2018-01-02] MEDS: PENTOXIFYLLINE 400 MG CONTROLLED RELEASE TAB PO SCH ×3 (04:15→22:58)
[2018-01-02] MEDS: RIFAXIMIN 200 MG TAB PO SCH ×3 (04:15→22:58)
[2018-01-02] MEDS: OCTREOTIDE INJ 500 MCG/ML AMP SQ SCH ×3 (04:16→22:58)
[2018-01-02] MEDS: MIDODRINE 5 MG TAB PO SCH ×3 (05:46→17:08)
[2018-01-02] MEDS: prednisoLONE 10 MG ODT TAB PO SCH (09:18)
[2018-01-02] MEDS: CHOLESTYRAMINE 4 GM PACKET PO SCH ×3 (09:18→17:08)
[2018-01-02] MEDS: CYANOCOBALAMIN 100 MCG TAB PO SCH (09:18)
[2018-01-02] MEDS: THIAMINE HCL 100 MG TAB PO SCH (09:19)
[2018-01-02] MEDS: PANTOPRAZOLE SOD 40 MG DELAYED RELEASE TAB PO SCH (09:19)
[2018-01-02] MEDS: FOLIC ACID 1 MG TAB PO SCH (09:19)
[2018-01-02] MEDS: SPIRONOLACTONE 25 MG TAB PO SCH ×2 (09:19→17:08)
[2018-01-02] MEDS: PHYTONADIONE 5 MG/SWFI 5 ML ORAL SYR PO SCH (09:20)
[2018-01-02] MEDS: SODIUM CHLORIDE 0.9% FLUSH 10 ML FLUSH IV FLUSH SCH ×2 (09:21→22:59)
[2018-01-02] MEDS: CHOLECALCIFEROL (VIT D3) 1000 UNIT TAB PO SCH (09:35)
[2018-01-02] MEDS: ALBUMIN 25% INJ 100 ML IV SCH (09:35)
[2018-01-02] MEDS: PALIPERIDONE ER 3 MG TAB PO SCH (09:35)
[2018-01-02] MEDS: LACTULOSE SYRUP 20 GM/30 ML CUP PO SCH ×4 (09:36→22:10)
--- NOTE | 2018-01-02 11:26 | HHI.PR ---
Subjective Remarks f/u; hepatic encephalopathy. in no acute distress. awake and alert. denies pain. no fever. d/w the RN. Objective Vitals Vital Signs Date Time Temp Pulse Resp B/P (MAP) Pulse Ox O2 Delivery O2 Flow Rate FiO2 01/02/18 10:00 70 01/02/18 08:50 99 01/02/18 08:00 97.9 67 13 123/83 (96) 100 01/02/18 08:00 67 01/02/18 06:00 63 01/02/18 04:00 98.1 77 124/84 (97) 100 01/02/18 04:00 77 01/02/18 02:00 86 01/02/18 00:00 87 01/02/18 00:00 99.0 87 139/93 (108) 100 01/01/18 22:00 96 01/01/18 20:00 98.0 90 135/85 (102) 100 01/01/18 20:00 90 01/01/18 18:00 109 01/01/18 16:00 80 01/01/18 16:00 98.8 106 130/75 (93) 100 01/01/18 14:00 80 01/01/18 12:00 89 01/01/18 12:00 98.4 89 21 100 I/O 01/01/18 01/01/18 01/01/18 01/02/18 01/02/18 01/02/18 07:00 15:00 23:00 07:00 15:00 23:00 Intake Total 340 ml 100 ml 240 ml 300 ml Balance 340 ml 100 ml 240 ml 300 ml Intake Oral 240 ml 240 ml 200 ml IV Total 100 ml 100 ml 100 ml # Voids 8 10 9 # Bowel Movements 8 10 9 Result Diagram: 01/01/18 1115 01/01/18 1115 Imaging Last Impressions Cyst Biopsy Asp-Paracentesis US 12/31/17 0000 Signed Impressions: Service Date/Time: Sunday, December 31, 2017 16:30 - CONCLUSION: Uncomplicated ultrasound guided paracentesis. Julian Brantley MD Head CT 12/30/17 0000 Signed Impressions: Service Date/Time: Saturday, December 30, 2017 19:58 - CONCLUSION: No acute disease. Roly Brantley MD FACR Objective Remarks GENERAL: jaundiced, in no apparent distress. CARDIOVASCULAR: Regular rate and irregular rhythm without murmurs, gallops, or rubs. RESPIRATORY: Clear to auscultation. Breath sounds equal bilaterally. No wheezes , rales, or rhonchi. GASTROINTESTINAL: Abdomen soft, non-tender, nondistended. Normal, active bowel sounds MUSCULOSKELETAL: Extremities with bilateral pedal edema. NEURO: Alert & Oriented x4 to person, place, time, situation. Moves all ext x4 Procedures paracentesis Medications and IVs Inpatient Medications Albumin Human 100 ml @ 60 mls/hr Q2H IV Last administered on 01/01/18 00:31; Start 12/31/17 at 22:15; Stop 01/01/18 at 01:54; Status DC Albuterol Sulfate (Albuterol Neb) 2.5 mg Q2HR NEB PRN INH SOB/WHEEZING; Start 12/30/17 at 21:00 Ceftriaxone Sodium 2000 mg/ Sodium Chloride 100 ml @ 200 mls/hr Q24H IV Last administered on 01/02/18at 01:08; Start 12/31/17 at 00:00 Chlorhexidine Gluconate (Chlorhexidine 2% Cloth) 3 pack UNSCH PRN TOP HYGIENIC CARE; Start 12/30/17 at 21:00 Cholecalciferol (Vitamin D3) 1,000 units DAILY PO Last administered on 09:35; Start 12/31/17 at 09:00 Cholestyramine Resin (Questran 4 Gm Pkt) 4 gm TIDAC PO Last administered on 01/02 09:18; Start 12/31/17 at 08:00 Cyanocobalamin (Vitamin B12) 100 mcg DAILY PO Last administered on 01/02/18 09: 18; Start 12/31/17 at 09:00 Folic Acid (Folate) 1 mg DAILY PO Last administered on 01/02/18 09:19; Start at 09:00 Hydroxyzine HCl (Atarax) 50 mg Q6H PRN PO itching; Start 12/30/17 at 21:30 Lactulose (Lactulose Liq) 45 ml QID PO Last administered on 01/02/18at 09:36; Start 12/30/17 at 21:00 Midodrine (Proamatine) 2.5 mg TID@07,12,17 PO Last administered on 01/02/18 05: 46; Start 12/31/17 at 07:00 Miscellaneous Information 1 Q361D XX Last administered on 12/30/17at 21:00; Start 12/30/17 at 21:00 Octreotide Acetate (SandoSTATIN INJ) 200 mcg Q8H SQ Last administered on 04:16; Start 12/30/17 at 22:00 Ondansetron HCl (Zofran Inj) 4 mg Q6H PRN IV PUSH NAUSEA OR VOMITING; Start 12/30/17 at 21:00 Paliperidone Palmitate (Invega Er) 3 mg DAILY PO Last administered on 01/02/18 09:35; Start 12/31/17 at 09:00 Pantoprazole Sodium (Protonix) 40 mg DAILY PO Last administered on 01/02/18 09: 19; Start 12/31/17 at 09:00 Pentoxifylline (TRENtal SR) 400 mg Q8H PO Last administered on 01/02/18 04:15; Start 12/30/17 at 22:00 Phytonadione (Mephyton Liq) 5 mg DAILY PO Last administered on 01/02/18 09:20; Start 12/31/17 at 09:00 Piperacillin Sod/ Tazobactam Sod 100 ml @ 200 mls/hr ONCE STAT IV Last administered on 12/30/17 17:44; Start 12/30/17 at 17:26; Stop 12/30/17 at 17:55; Status DC Prednisolone (Orapred Odt) 40 mg DAILY PO Last administered on 01/02/18 09:18; Start 12/31/17 at 09:00 Rifaximin (Xifaxan) 400 mg Q8HR PO Last administered on 01/02/18 04:15; Start 12/30/17 at 22:00 Sodium Chloride (NS Flush) 2 ml BID IV FLUSH Last administered on 01/02/18 09: 21; Start 12/30/17 at 21:00 Spironolactone (Aldactone) 25 mg BID@09,18 PO Last administered on 01/02/18 09: 19; Start 01/01/18 at 18:00 Thiamine HCl (Vitamin B1) 100 mg DAILY PO Last administered on 4/9/18at 09:19; Start 12/31/17 at 11:30 A/P Assessment and Plan A/P Acute hepatic encephalopathy H/O psychosis History of alcohol dependence Continue Invega 3 mg by mouth daily per psychiatry monitor Ammonia level Rifaximin 40 mg by mouth every 8 hours, lactulose 45 cc by mouth [address] brain no acute abnormality Reportedly no EtOH x1 month. Thiamine 100 mg po daily x5 days. Monitor for any evidence of withdrawal Seizure precautions ESLD MELD 26 Continue prednisone 40 mg by mouth daily, pentoxifylline 40 mg by mouth every 8 hours, cholestyramine 4 g by mouth 3 times a day. s/p paracentesis with removal of eight liters of fluid was evaluated by GI last admission. ELKIN secondary to Hepatorenal syndrome, creatinine improved Continue Midrin 2.5 mg by mouth 3 times a day, continue octreotide 20 g by mouth every 8 hours as long as repeat potassium is low or normal. Start Aldactone 25 mg BID Albumin 25 gram IV daily. SBP ruled out leukocytosis Mild abd discomfort and with worsening hepatic encephalopathy SBP ruled out by fluid studies Status post paracentesis with 8 L removed . There is a shortage of cefotaxime. Continue Rocephin 2 g IV daily. Peripheral smear 12/14/17 with reactive features. Previously evaluated by hematology. Continue vitamin K 5 mg by mouth daily, vitamin B-12 100 g by mouth daily, folic acid 1 mg by mouth daily. PROPH: SCDs for DVT prophylaxis. Avoid pharmacologic DVT prophylaxis due to coagulopathy and need for procedure. Protonix 40 mg by mouth daily. for transfer to floor. d/w the patient. Mell Cunha MD Jan 02, 2018 11:26
[2018-01-03] VITALS (9 sets, daily range): BP systolic 124–163; BP diastolic 70–98; PULSE 86–104; RESP 18–21; TEMP 97.9–98.3; O2SAT 98–100
[2018-01-03] MEDS: cefTRIAXone INJ 2,000 MG in SODIUM CHLORIDE 0.9% INJ 100 ML IV SCH ×2 (00:48→23:53)
[2018-01-03] MEDS: CHLORHEXIDINE GLUCONATE 2 % 1 PACK (2 CLOTHS) TOP SCH (04:00)
[2018-01-03] MEDS: RIFAXIMIN 200 MG TAB PO SCH ×3 (06:08→22:09)
[2018-01-03] MEDS: PENTOXIFYLLINE 400 MG CONTROLLED RELEASE TAB PO SCH ×3 (06:08→22:08)
[2018-01-03] MEDS: MIDODRINE 5 MG TAB PO SCH ×3 (06:08→17:57)
[2018-01-03] MEDS: OCTREOTIDE INJ 500 MCG/ML AMP SQ SCH ×3 (06:09→22:12)
[2018-01-03 07:37] LABS: BASOPHIL # 0.3 TH/MM3 (0-0.2); BASOPHIL % 1.3 % (0.0-2.0); EOSINOPHIL # 0.1 TH/MM3 (0-0.4); EOSINOPHIL % 0.4 % (0.0-4.0); HEMATOCRIT 31.6 % (39.0-51.0); HEMOGLOBIN 10.9 GM/DL (13.0-17.0); LYMPH % 8.2 % (9.0-44.0); LYMPHOCYTE # 1.8 TH/MM3 (1.0-4.8); MEAN CELL VOLUME 102.8 FL (80.0-100.0); MEAN CORPUSCULAR HEMOGLOBIN 35.6 PG (27.0-34.0); MEAN CORPUSCULAR HGB CONC 34.6 % (32.0-36.0); MEAN PLATELET VOLUME 9.6 FL (7.0-11.0); MONO % 5.9 % (0.0-8.0); MONOCYTE # 1.3 TH/MM3 (0-0.9); NEUT % 84.2 % (16.0-70.0); PLATELET COUNT 167 TH/MM3 (150-450); RED BLOOD COUNT 3.07 MIL/MM3 (4.50-5.90); RED CELL DISTRIBUTION WIDTH 18.4 % (11.6-17.2); WHITE BLOOD COUNT 21.4 TH/MM3 (4.0-11.0)
[2018-01-03 07:47] LABS: INTERNATIONAL NORMALIZED RATIO 1.5 RATIO; PROTHROMBIN TIME - PATIENT 15.2 SEC (9.8-11.6)
[2018-01-03] MEDS: CHOLESTYRAMINE 4 GM PACKET PO SCH ×3 (08:00→17:57)
[2018-01-03 08:06] LABS: ALBUMIN 2.5 GM/DL (3.4-5.0); ALKALINE PHOSPHATASE 165 U/L (45-117); ALT (GPT) 145 U/L (12-78); AST (GOT) 109 U/L (15-37); BICARBONATE 23.9 MEQ/L (21.0-32.0); BLOOD UREA NITROGEN 10 MG/DL (7-18); CALCIUM 8.4 MG/DL (8.5-10.1); CHLORIDE 109 MEQ/L (98-107); CREATININE 1.08 MG/DL (0.60-1.30); GLOMERULAR FILTRATION RATE 76 ML/MIN (>89); GLUCOSE,RANDOM 111 MG/DL (74-106); SODIUM (NA) 142 MEQ/L (136-145); TOTAL BILIRUBIN ADULT 21.3 MG/DL (0.2-1.0); TOTAL PROTEIN 5.9 GM/DL (6.4-8.2)
[2018-01-03] MEDS: prednisoLONE 10 MG ODT TAB PO SCH (08:23)
[2018-01-03] MEDS: FOLIC ACID 1 MG TAB PO SCH (08:23)
[2018-01-03] MEDS: ALBUMIN 25% INJ 100 ML IV SCH (08:23)
[2018-01-03] MEDS: LACTULOSE SYRUP 20 GM/30 ML CUP PO SCH ×4 (08:23→22:07)
[2018-01-03] MEDS: SODIUM CHLORIDE 0.9% FLUSH 10 ML FLUSH IV FLUSH SCH ×2 (08:23→22:08)
[2018-01-03] MEDS: CYANOCOBALAMIN 100 MCG TAB PO SCH (08:24)
[2018-01-03] MEDS: THIAMINE HCL 100 MG TAB PO SCH (08:24)
[2018-01-03] MEDS: PANTOPRAZOLE SOD 40 MG DELAYED RELEASE TAB PO SCH (08:24)
[2018-01-03] MEDS: SPIRONOLACTONE 25 MG TAB PO SCH ×2 (08:24→17:57)
[2018-01-03] MEDS: CHOLECALCIFEROL (VIT D3) 1000 UNIT TAB PO SCH (08:24)
[2018-01-03] MEDS: PALIPERIDONE ER 3 MG TAB PO SCH (08:25)
[2018-01-03] MEDS ORDERED: POTASSIUM CHLORIDE 20 MEQ CONTROLLED RELEASE TAB PO ONE (10:15)
[2018-01-03] MEDS: PHYTONADIONE 5 MG/SWFI 5 ML ORAL SYR PO SCH (10:48)
--- NOTE | 2018-01-03 11:01 | HHI.PR ---
Subjective Remarks Follow-up Hepatic encephalopathy/end-stage liver disease 01/03/18-patient seen and examined, alert and oriented 3. No acute event overnight. Currently afebrile. Family by the bedside and all questions were answered accordingly. potassium 2.6 Objective Vitals Vital Signs Date Time Temp Pulse Resp B/P (MAP) Pulse Ox O2 Delivery O2 Flow Rate FiO2 01/03/18 08:06 97.9 93 18 126/70 (88) 99 01/03/18 05:20 86 01/03/18 04:00 98.2 94 18 124/79 (94) 99 01/03/18 02:37 93 131/79 (96) 98 01/03/18 01:00 86 01/03/18 00:00 98.2 95 20 131/72 (91) 98 01/02/18 20:00 97.7 87 20 122/79 (93) 100 01/02/18 18:49 98.0 108 20 135/90 (105) 100 01/02/18 16:00 97.9 114 32 121/76 (91) 99 01/02/18 16:00 114 01/02/18 14:40 14 01/02/18 14:00 69 01/02/18 12:00 70 01/02/18 12:00 98.0 70 14 141/80 (100) 100 I/O 01/02/18 01/02/18 01/02/18 01/03/18 01/03/18 01/03/18 07:00 15:00 23:00 07:00 15:00 23:00 Intake Total 300 ml Output Total 450 ml Balance 300 ml -450 ml Intake Oral 200 ml IV Total 100 ml Output Urine Total 450 ml # Voids 9 # Bowel Movements 9 0 Result Diagram: 01/03/1862101/03/18621 Imaging Last Impressions Cyst Biopsy Asp-Paracentesis US 12/31/17 0000 Signed Impressions: Service Date/Time: Sunday, December 31, 2017 16:30 - CONCLUSION: Uncomplicated ultrasound guided paracentesis. Julian Brantley MD Head CT 12/30/17 0000 Signed Impressions: Service Date/Time: Saturday, December 30, 2017 19:58 - CONCLUSION: No acute disease. Roly Brantley MD FACR Objective Remarks GENERAL: NAD SKIN: Warm and dry.jaundiced HEAD: Normocephalic. EYES: + scleral icterus. No injection or drainage. NECK: Supple, trachea midline. No JVD or lymphadenopathy. CARDIOVASCULAR: Regular rate and rhythm without murmurs, gallops, or rubs. RESPIRATORY: Breath sounds equal bilaterally. No accessory muscle use. GASTROINTESTINAL: Abdomen soft, non-tender, nondistended. +HSM MUSCULOSKELETAL: No cyanosis, or edema. BACK: Nontender without obvious deformity. No CVA tenderness. Procedures paracentesis A/P Problem List: (1) Hepatic encephalopathy ICD Code: K72.90 - Hepatic failure, unspecified without coma (2) End-stage liver disease ICD Code: K72.90 - Hepatic failure, unspecified without coma (3) SBP (spontaneous bacterial peritonitis) ICD Code: K65.2 - Spontaneous bacterial peritonitis Status: Acute (4) Hypokalemia ICD Code: E87.6 - Hypokalemia Status: Acute Assessment and Plan 37-year-old man with Acute hepatic encephalopathy H/O psychosis History of alcohol dependence Continue Invega 3 mg by mouth daily per psychiatry Rifaximin 40 mg by mouth every 8 hours, lactulose 45 cc by mouth 4 times a day. Thiamine 100 mg po daily x5 days. Monitor for any evidence of withdrawal Seizure precautions Monitor ammonia level ESLD Coagulopathy MELD 26 on admission Continue prednisone 40 mg by mouth daily, pentoxifylline 40 mg by mouth every 8 hours, cholestyramine 4 g by mouth 3 times a day. s/p paracentesis Will need outpatient follow-up with GI ELKIN secondary to Hepatorenal syndrome Continue Midrin 2.5 mg by mouth 3 times a day, continue octreotide 20 g by mouth every 8 hours as long as repeat potassium is low or normal. Continue Aldactone 25 mg BID Currently on Albumin 25 gram IV daily. Hypokalemia Give potassium 80 mEq 1 now SBP ruled out leukocytosis Mild abd discomfort and with worsening hepatic encephalopathy SBP ruled out by fluid studies Status post paracentesis with 8 L removed . Continue Rocephin 2 g IV daily. Continue vitamin K 5 mg by mouth daily, vitamin B-12 100 g by mouth daily, folic acid 1 mg by mouth daily. PROPH: SCDs for DVT prophylaxis. Avoid pharmacologic DVT prophylaxis due to coagulopathy and need for procedure. Protonix 40 mg by mouth daily. Huey Aiken MD Jan 03, 2018 11:00
[2018-01-04] VITALS (9 sets, daily range): BP systolic 117–156; BP diastolic 67–93; PULSE 90–125; RESP 17–21; TEMP 98.1–98.5; O2SAT 97–100
[2018-01-04] MEDS: CHLORHEXIDINE GLUCONATE 2 % 1 PACK (2 CLOTHS) TOP SCH (04:00)
[2018-01-04] MEDS: RIFAXIMIN 200 MG TAB PO SCH ×3 (05:38→20:46)
[2018-01-04] MEDS: OCTREOTIDE INJ 500 MCG/ML AMP SQ SCH ×3 (05:39→23:08)
[2018-01-04] MEDS: MIDODRINE 5 MG TAB PO SCH ×3 (05:41→17:55)
[2018-01-04] MEDS: PENTOXIFYLLINE 400 MG CONTROLLED RELEASE TAB PO SCH ×3 (05:42→20:46)
[2018-01-04 09:27] LABS: AUTOMATED NEUTROPHIL # 20.2 TH/MM3 (1.8-7.7); BASOPHIL % 0.1 % (0.0-2.0); EOSINOPHIL # 0.2 TH/MM3 (0-0.4); EOSINOPHIL % 0.9 % (0.0-4.0); HEMATOCRIT 30.1 % (39.0-51.0); HEMOGLOBIN 10.5 GM/DL (13.0-17.0); LYMPH % 9.7 % (9.0-44.0); LYMPHOCYTE # 2.4 TH/MM3 (1.0-4.8); MEAN CELL VOLUME 101.5 FL (80.0-100.0); MEAN CORPUSCULAR HEMOGLOBIN 35.3 PG (27.0-34.0); MEAN CORPUSCULAR HGB CONC 34.8 % (32.0-36.0); MEAN PLATELET VOLUME 9.1 FL (7.0-11.0); MONO % 7.5 % (0.0-8.0); MONOCYTE # 1.8 TH/MM3 (0-0.9); NEUT % 81.8 % (16.0-70.0); PLATELET COUNT 143 TH/MM3 (150-450); RED BLOOD COUNT 2.97 MIL/MM3 (4.50-5.90); RED CELL DISTRIBUTION WIDTH 18.6 % (11.6-17.2); WHITE BLOOD COUNT 24.7 TH/MM3 (4.0-11.0)
[2018-01-04 09:39] LABS: ALT (GPT) 144 U/L (12-78)
[2018-01-04] MEDS: PHYTONADIONE 5 MG/SWFI 5 ML ORAL SYR PO SCH (09:53)
[2018-01-04] MEDS: PALIPERIDONE ER 3 MG TAB PO SCH (09:53)
[2018-01-04] MEDS: THIAMINE HCL 100 MG TAB PO SCH (09:53)
[2018-01-04] MEDS: LACTULOSE SYRUP 20 GM/30 ML CUP PO SCH ×4 (09:53→20:46)
[2018-01-04] MEDS: ALBUMIN 25% INJ 100 ML IV SCH (09:53)
[2018-01-04] MEDS: PANTOPRAZOLE SOD 40 MG DELAYED RELEASE TAB PO SCH (09:53)
[2018-01-04] MEDS: prednisoLONE 10 MG ODT TAB PO SCH (09:53)
[2018-01-04] MEDS: CYANOCOBALAMIN 100 MCG TAB PO SCH (09:53)
[2018-01-04] MEDS: SODIUM CHLORIDE 0.9% FLUSH 10 ML FLUSH IV FLUSH SCH ×2 (09:54→20:49)
[2018-01-04] MEDS: SPIRONOLACTONE 25 MG TAB PO SCH ×2 (09:54→17:53)
[2018-01-04] MEDS: FOLIC ACID 1 MG TAB PO SCH (09:54)
[2018-01-04] MEDS: hydrOXYzine HCL 50 MG TAB PO PRN ×2 (09:54→23:08)
[2018-01-04] MEDS: CHOLECALCIFEROL (VIT D3) 1000 UNIT TAB PO SCH (09:54)
[2018-01-04] MEDS: CHOLESTYRAMINE 4 GM PACKET PO SCH ×3 (09:57→17:53)
[2018-01-04 10:03] LABS: ALBUMIN 2.7 GM/DL (3.4-5.0); ALKALINE PHOSPHATASE 158 U/L (45-117); AST (GOT) 103 U/L (15-37); BICARBONATE 18.9 MEQ/L (21.0-32.0); BLOOD UREA NITROGEN 10 MG/DL (7-18); CALCIUM 8.5 MG/DL (8.5-10.1); CHLORIDE 108 MEQ/L (98-107); CREATININE 0.98 MG/DL (0.60-1.30); GLOMERULAR FILTRATION RATE 85 ML/MIN (>89); GLUCOSE,RANDOM 87 MG/DL (74-106); SODIUM (NA) 138 MEQ/L (136-145); TOTAL PROTEIN 5.8 GM/DL (6.4-8.2)
[2018-01-04 10:06] LABS: TOTAL BILIRUBIN ADULT 21.7 MG/DL (0.2-1.0)
--- NOTE | 2018-01-04 10:29 | HHI.PR ---
Subjective Remarks Follow-up Hepatic encephalopathy/end-stage liver disease 01/03/18-patient seen and examined, alert and oriented 3. No acute event overnight. Currently afebrile. Family by the bedside and all questions were answered accordingly. potassium 2.6 01/04/18-patient seen and examined, states he is feeling better. States he has good appetite Objective Vitals Vital Signs Date Time Temp Pulse Resp B/P (MAP) Pulse Ox O2 Delivery O2 Flow Rate FiO2 01/04/18 09:35 98.3 101 20 156/79 (104) 99 01/04/18 04:00 98.1 95 21 126/77 (93) 98 01/04/18 00:22 98.2 96 20 130/85 (100) 99 01/03/18 20:00 98.0 102 21 139/91 (107) 99 01/03/18 16:36 98.0 99 18 145/98 (114) 100 01/03/18 12:01 98.3 104 18 163/90 (114) 99 I/O 01/03/18 01/03/18 01/03/18 01/04/18 01/04/18 01/04/18 07:00 15:00 23:00 07:00 15:00 23:00 Intake Total 560 ml 480 ml 105 ml Output Total 450 ml Balance -450 ml 560 ml 480 ml 105 ml Intake Oral 560 ml 480 ml IV Total 105 ml Output Urine Total 450 ml # Voids 5 6 2 # Bowel Movements 0 3 5 0 Result Diagram: 01/03/18 0622 01/04/18 0850 Imaging Last Impressions Cyst Biopsy Asp-Paracentesis US 12/31/17 0000 Signed Impressions: Service Date/Time: Sunday, December 31, 2017 16:30 - CONCLUSION: Uncomplicated ultrasound guided paracentesis. Julian Brantley MD Head CT 12/30/17 0000 Signed Impressions: Service Date/Time: Saturday, December 30, 2017 19:58 - CONCLUSION: No acute disease. Roly Brantley MD FACR Objective Remarks GENERAL: NAD SKIN: Warm and dry.jaundiced HEAD: Normocephalic. EYES: + scleral icterus. No injection or drainage. NECK: Supple, trachea midline. No JVD or lymphadenopathy. CARDIOVASCULAR: Regular rate and rhythm without murmurs, gallops, or rubs. RESPIRATORY: Breath sounds equal bilaterally. No accessory muscle use. GASTROINTESTINAL: Abdomen soft, non-tender, nondistended. +HSM MUSCULOSKELETAL: No cyanosis, or edema. BACK: Nontender without obvious deformity. No CVA tenderness. Procedures paracentesis A/P Problem List: (1) Hepatic encephalopathy ICD Code: K72.90 - Hepatic failure, unspecified without coma Status: Resolved (2) End-stage liver disease ICD Code: K72.90 - Hepatic failure, unspecified without coma (3) SBP (spontaneous bacterial peritonitis) ICD Code: K65.2 - Spontaneous bacterial peritonitis Status: Acute (4) Hypokalemia ICD Code: E87.6 - Hypokalemia Status: Acute Assessment and Plan 37-year-old man with Acute hepatic encephalopathy H/O psychosis History of alcohol dependence Continue Invega 3 mg by mouth daily per psychiatry Rifaximin 40 mg by mouth every 8 hours, lactulose 45 cc by mouth 4 times a day. Thiamine 100 mg po daily x5 days. Monitor for any evidence of withdrawal Seizure precautions Monitor ammonia level ESLD Coagulopathy MELD 26 on admission and now down to 23 Continue prednisone 40 mg by mouth daily, pentoxifylline 40 mg by mouth every 8 hours, cholestyramine 4 g by mouth 3 times a day. s/p paracentesis Will need outpatient follow-up with [facility] secondary to Hepatorenal syndrome Continue Midrin 2.5 mg by mouth 3 times a day, continue octreotide 20 g by mouth every 8 hours as long as repeat potassium is low or normal. Continue Aldactone 25 mg BID Currently on Albumin 25 gram IV daily. Hypokalemia Give potassium 60 mEq 1 now SBP ruled out leukocytosis Mild abd discomfort and with worsening hepatic encephalopathy SBP ruled out by fluid studies Status post paracentesis with 8 L removed . Continue Rocephin 2 g IV daily. Continue vitamin K 5 mg by mouth daily, vitamin B-12 100 g by mouth daily, folic acid 1 mg by mouth daily. PROPH: SCDs for DVT prophylaxis. Avoid pharmacologic DVT prophylaxis due to coagulopathy and need for procedure. Protonix 40 mg by mouth daily. Huey Aiken MD Jan 04, 2018 10:29
[2018-01-04] MEDS ORDERED: POTASSIUM CHLORIDE 10 MEQ CONTROLLED RELEASE TAB PO ONE (10:30)
[2018-01-04 10:35] LABS: ACANTHOCYTES OCC (NORMAL); TARGET CELLS 1+ (NORMAL)
[2018-01-04 10:36] LABS: HOWELL-JOLLY BODIES PRESENT (NONE SEEN)
[2018-01-04] MEDS ORDERED: PENT400T PO (14:08)
[2018-01-04] MEDS ORDERED: CHOL1000 PO (14:08)
[2018-01-04] MEDS ORDERED: THIA100 PO (14:08)
[2018-01-04] MEDS ORDERED: Lactulose Liq PO (14:08)
[2018-01-04] MEDS ORDERED: HYDR50TA94 PO (14:08)
[2018-01-04] MEDS ORDERED: MIDO5TAB PO (14:08)
[2018-01-04] MEDS ORDERED: CYAN100 PO (14:08)
[2018-01-04] MEDS ORDERED: POTA10CA PO (14:08)
[2018-01-04] MEDS ORDERED: SPIR25 PO (14:08)
[2018-01-04] MEDS ORDERED: PHYT10P PO (14:08)
[2018-01-04] MEDS ORDERED: CHOL4POW4 PO (14:08)
[2018-01-04] MEDS ORDERED: PANT40TA3 PO (14:08)
[2018-01-04] MEDS ORDERED: PRED1TAB72 PO (14:08)
[2018-01-04] MEDS ORDERED: INVE3TAB2 PO (14:08)
[2018-01-04] MEDS ORDERED: XIFA200T4 PO (14:08)
[2018-01-04] MEDS: cefTRIAXone INJ 2,000 MG in SODIUM CHLORIDE 0.9% INJ 100 ML IV SCH (23:08)
[2018-01-05 00:30] VITALS: BP 139/95; PULSE 96; RESP 19; TEMP 97.8; O2SAT 100
[2018-01-05 03:44] VITALS: PULSE 88
[2018-01-05] MEDS: CHLORHEXIDINE GLUCONATE 2 % 1 PACK (2 CLOTHS) TOP SCH (04:00)
[2018-01-05 04:30] VITALS: BP 132/85; PULSE 100; RESP 19; TEMP 98.3; O2SAT 99
[2018-01-05] MEDS: MIDODRINE 5 MG TAB PO SCH (06:26)
[2018-01-05] MEDS: PENTOXIFYLLINE 400 MG CONTROLLED RELEASE TAB PO SCH (06:26)
[2018-01-05] MEDS: RIFAXIMIN 200 MG TAB PO SCH (06:26)
[2018-01-05] MEDS: OCTREOTIDE INJ 500 MCG/ML AMP SQ SCH (06:27)
[2018-01-05 08:00] VITALS: BP 123/73; PULSE 90; RESP 18; TEMP 98.2; O2SAT 98
[2018-01-05 08:09] LABS: EOSINOPHIL # 0.1 TH/MM3 (0-0.4); EOSINOPHIL % 0.4 % (0.0-4.0); HEMATOCRIT 28.6 % (39.0-51.0); HEMOGLOBIN 9.9 GM/DL (13.0-17.0); LYMPH % 5.5 % (9.0-44.0); LYMPHOCYTE # 1.4 TH/MM3 (1.0-4.8); MEAN CELL VOLUME 102.3 FL (80.0-100.0); MEAN CORPUSCULAR HEMOGLOBIN 35.4 PG (27.0-34.0); MEAN CORPUSCULAR HGB CONC 34.6 % (32.0-36.0); MONO % 6.2 % (0.0-8.0); MONOCYTE # 1.5 TH/MM3 (0-0.9); NEUT % 87.9 % (16.0-70.0); PLATELET COUNT 145 TH/MM3 (150-450); RED CELL DISTRIBUTION WIDTH 18.9 % (11.6-17.2)
[2018-01-05 08:25] LABS: ALBUMIN 2.9 GM/DL (3.4-5.0); ALKALINE PHOSPHATASE 161 U/L (45-117); ALT (GPT) 146 U/L (12-78); AST (GOT) 104 U/L (15-37); BICARBONATE 21.3 MEQ/L (21.0-32.0); BLOOD UREA NITROGEN 14 MG/DL (7-18); CALCIUM 8.2 MG/DL (8.5-10.1); CHLORIDE 108 MEQ/L (98-107); GLOMERULAR FILTRATION RATE 92 ML/MIN (>89); GLUCOSE,RANDOM 104 MG/DL (74-106); SODIUM (NA) 138 MEQ/L (136-145); TOTAL BILIRUBIN ADULT 23.2 MG/DL (0.2-1.0)
[2018-01-05 08:31] LABS: CREATININE 0.92 MG/DL (0.60-1.30); TOTAL PROTEIN 5.9 GM/DL (6.4-8.2)
[2018-01-05] MEDS: SODIUM CHLORIDE 0.9% FLUSH 10 ML FLUSH IV FLUSH SCH (09:00)
[2018-01-05] MEDS: PALIPERIDONE ER 3 MG TAB PO SCH (09:00)
[2018-01-05] MEDS: CHOLESTYRAMINE 4 GM PACKET PO SCH (10:19)
[2018-01-05] MEDS: ALBUMIN 25% INJ 100 ML IV SCH (10:20)
[2018-01-05] MEDS: CHOLECALCIFEROL (VIT D3) 1000 UNIT TAB PO SCH (10:27)
[2018-01-05] MEDS: SPIRONOLACTONE 25 MG TAB PO SCH (10:28)
[2018-01-05] MEDS: CYANOCOBALAMIN 100 MCG TAB PO SCH (10:28)
[2018-01-05] MEDS: FOLIC ACID 1 MG TAB PO SCH (10:28)
[2018-01-05] MEDS: THIAMINE HCL 100 MG TAB PO SCH (10:28)
[2018-01-05] MEDS: prednisoLONE 10 MG ODT TAB PO SCH (10:29)
[2018-01-05] MEDS: PANTOPRAZOLE SOD 40 MG DELAYED RELEASE TAB PO SCH (10:29)
[2018-01-05] MEDS: LACTULOSE SYRUP 20 GM/30 ML CUP PO SCH (10:30)
[2018-01-05] MEDS: PHYTONADIONE 5 MG/SWFI 5 ML ORAL SYR PO SCH (10:30)
--- NOTE | 2018-01-05 10:32 | HHI.PR ---
Subjective Remarks Follow-up Hepatic encephalopathy/end-stage liver disease 01/03/18-patient seen and examined, alert and oriented 3. No acute event overnight. Currently afebrile. Family by the bedside and all questions were answered accordingly. potassium 2.6 01/04/18-patient seen and examined, states he is feeling better. States he has good appetite 01/05/18-patient seen and examined, states he is ready for discharge. Alert and oriented x 3. Denies any abdominal pain Objective Vitals Vital Signs Date Time Temp Pulse Resp B/P (MAP) Pulse Ox O2 Delivery O2 Flow Rate FiO2 01/05/18 08:00 98.2 90 18 123/73 (90) 98 01/05/18 04:30 98.3 100 19 132/85 (101) 99 01/05/18 03:44 88 01/05/18 00:30 97.8 96 19 139/95 (110) 100 01/04/18 23:59 90 01/04/18 21:00 98.3 99 17 117/67 (84) 97 01/04/18 20:00 106 01/04/18 15:32 98.5 125 20 141/93 (109) 100 01/04/18 12:22 98.4 114 20 125/80 (95) 100 01/04/18 12:00 113 I/O 01/04/18 01/04/18 01/04/18 01/05/18 01/05/18 01/05/18 07:00 15:00 23:00 07:00 15:00 23:00 Intake Total 105 ml 1840 ml 950 ml Balance 105 ml 1840 ml 950 ml Intake Oral 1840 ml 850 ml IV Total 105 ml 100 ml # Voids 2 5 6 # Bowel Movements 0 2 6 Result Diagram: 01/05/18 0717 01/05/18 0717 Imaging Last Impressions Cyst Biopsy Asp-Paracentesis US 12/31/17 0000 Signed Impressions: Service Date/Time: Sunday, December 31, 2017 16:30 - CONCLUSION: Uncomplicated ultrasound guided paracentesis. Julian Brantley MD Head CT 12/30/17 0000 Signed Impressions: Service Date/Time: Saturday, December 30, 2017 19:58 - CONCLUSION: No acute disease. Roly Brantley MD FACR Objective Remarks GENERAL: NAD SKIN: Warm and dry.jaundiced HEAD: Normocephalic. EYES: + scleral icterus. No injection or drainage. NECK: Supple, trachea midline. No JVD or lymphadenopathy. CARDIOVASCULAR: Regular rate and rhythm without murmurs, gallops, or rubs. RESPIRATORY: Breath sounds equal bilaterally. No accessory muscle use. GASTROINTESTINAL: Abdomen soft, non-tender, nondistended. +HSM MUSCULOSKELETAL: No cyanosis, or edema. BACK: Nontender without obvious deformity. No CVA tenderness. Procedures paracentesis A/P Problem List: (1) Sepsis ICD Code: A41.9 - Sepsis, unspecified organism (2) Hepatic encephalopathy ICD Code: K72.90 - Hepatic failure, unspecified without coma Status: Resolved (3) End-stage liver disease ICD Code: K72.90 - Hepatic failure, unspecified without coma (4) SBP (spontaneous bacterial peritonitis) ICD Code: K65.2 - Spontaneous bacterial peritonitis Status: Acute (5) Hypokalemia ICD Code: E87.6 - Hypokalemia Status: Acute Assessment and Plan 37-year-old man with Sepsis present on admission Now resolved Acute hepatic encephalopathy-resolved H/O psychosis History of alcohol dependence Continue Invega 3 mg by mouth daily per psychiatry Rifaximin 40 mg by mouth every 8 hours, lactulose 45 cc by mouth 4 times a day. Thiamine 100 mg po daily Monitor for any evidence of withdrawal Seizure precautions Monitor ammonia level-stable ESLD Coagulopathy MELD 26 on admission and now down to 23 Continue prednisone 40 mg by mouth daily, pentoxifylline 40 mg by mouth every 8 hours, cholestyramine 4 g by mouth 3 times a day. s/p paracentesis Will need outpatient follow-up with [facility] secondary to Hepatorenal syndrome Continue Midrin 2.5 mg by mouth 3 times a day, d/c octreotide 20 g by mouth every 8 hours Continue Aldactone 25 mg BID Currently on Albumin 25 gram IV daily. Hypokalemia Replaced s/p electrolyte replacement SBP ruled out leukocytosis Mild abd discomfort and with worsening hepatic encephalopathy SBP ruled out by fluid studies Status post paracentesis with 8 L removed . d/c Rocephin 2 g IV daily. Continue vitamin K 5 mg by mouth daily, vitamin B-12 100 g by mouth daily, folic acid 1 mg by mouth daily. PROPH: SCDs for DVT prophylaxis. Avoid pharmacologic DVT prophylaxis due to coagulopathy and need for procedure. Protonix 40 mg by mouth daily. Huey Aiken MD Jan 05, 2018 10:32
--- NOTE | 2018-01-05 10:41 | HHI.DS ---
Discharge Summary Admission Date Dec 30, 2017 at 18:50 Discharge Date: Jan 05, 2018 Admitting Diagnosis Hepatic encephalopathy/end-stage liver disease/SBP (1) Sepsis ICD Code: A41.9 - Sepsis, unspecified organism (2) Hepatic encephalopathy ICD Code: K72.90 - Hepatic failure, unspecified without coma Status: Resolved (3) End-stage liver disease ICD Code: K72.90 - Hepatic failure, unspecified without coma (4) SBP (spontaneous bacterial peritonitis) ICD Code: K65.2 - Spontaneous bacterial peritonitis Status: Acute (5) Hypokalemia ICD Code: E87.6 - Hypokalemia Status: Acute Procedures paracentesis Brief History - From Admission 37-year-old male with past medical history of end-stage liver disease , alcohol abuse, hepatorenal syndrome, whose parents brought him to [facility] emergency department due to confusion that started yesterday evening and became progressively worse. He reportedly was having "trouble getting words out" and couldn't figure out how use his cell phone properly. His mother had contacted his physician who recommended additional dose of lactulose last night and this morning. He has been nauseated with decreased appetite but denied vomiting. He reports some mild vague abdominal pain. No fever. He says he has had been having 3-4 bowel movements per day and has been compliant with rifaximin and lactulose as prescribed. ED workup revealed white blood cell count 27.9, normal platelet count. Potassium was 6.6 but this appeared to be a hemolyzed specimen. Ammonia level is 99. I have obtained CT brain which is negative. Patient went to follow up appointments with Dr. Lopez with gastroenterology and Dr. Coronado with nephrology yesterday. He has been having progressively worsening edema and a diuretic was prescribed but it has not yet been filled. He was recently admitted under [facility] act on 12/23 due to combative behavior and refusing to take medications. CBC/BMP: 01/05/18 0717 01/05/18 0717 Significant Findings Laboratory Tests Test 01/03/18 06:22 01/04/18 08:30 01/04/18 08:50 01/05/18 07:17 White Blood Count 21.4 TH/MM3 (4.0-11.0) 24.7 TH/MM3 (4.0-11.0) 25.0 TH/MM3 (4.0-11.0) Red Blood Count 3.07 MIL/MM3 (4.50-5.90) 2.97 MIL/MM3 (4.50-5.90) 2.80 MIL/MM3 (4.50-5.90) Hemoglobin 10.9 GM/DL (13.0-17.0) 10.5 GM/DL (13.0-17.0) 9.9 GM/DL (13.0-17.0) Hematocrit 31.6 % (39.0-51.0) 30.1 % (39.0-51.0) 28.6 % (39.0-51.0) Mean Corpuscular Volume 102.8 FL (80.0-100.0) 101.5 FL (80.0-100.0) 102.3 FL (80.0-100.0) Mean Corpuscular Hemoglobin 35.6 PG (27.0-34.0) 35.3 PG (27.0-34.0) 35.4 PG (27.0-34.0) Red Cell Distribution Width 18.4 % (11.6-17.2) 18.6 % (11.6-17.2) 18.9 % (11.6-17.2) Neutrophils (%) (Auto) 84.2 % (16.0-70.0) 81.8 % (16.0-70.0) 87.9 % (16.0-70.0) Lymphocytes (%) (Auto) 8.2 % (9.0-44.0) 5.5 % (9.0-44.0) Neutrophils # (Auto) 18.0 TH/MM3 (1.8-7.7) 20.2 TH/MM3 (1.8-7.7) 22.0 TH/MM3 (1.8-7.7) Monocytes # (Auto) 1.3 TH/MM3 (0-0.9) 1.8 TH/MM3 (0-0.9) 1.5 TH/MM3 (0-0.9) Basophils # (Auto) 0.3 TH/MM3 (0-0.2) Prothrombin Time 15.2 SEC (9.8-11.6) Random Glucose 111 MG/DL (74-106) Total Protein 5.9 GM/DL (6.4-8.2) 5.8 GM/DL (6.4-8.2) 5.9 GM/DL (6.4-8.2) Albumin 2.5 GM/DL (3.4-5.0) 2.7 GM/DL (3.4-5.0) 2.9 GM/DL (3.4-5.0) Calcium Level 8.4 MG/DL (8.5-10.1) 8.2 MG/DL (8.5-10.1) Alkaline Phosphatase 165 U/L (45-117) 158 U/L (45-117) 161 U/L (45-117) Aspartate Amino Transf (AST/SGOT) 109 U/L (15-37) 103 U/L (15-37) 104 U/L (15-37) Alanine Aminotransferase (ALT/SGPT) 145 U/L (12-78) 144 U/L (12-78) 146 U/L (12-78) Total Bilirubin 21.3 MG/DL (0.2-1.0) 21.7 MG/DL (0.2-1.0) 23.2 MG/DL (0.2-1.0) Potassium Level 2.6 MEQ/L (3.5-5.1) 3.1 MEQ/L (3.5-5.1) Chloride Level 109 MEQ/L (98-107) 108 MEQ/L (98-107) 108 MEQ/L (98-107) Estimat Glomerular Filtration Rate 76 ML/MIN (>89) 85 ML/MIN (>89) Platelet Count 143 TH/MM3 (150-450) 145 TH/MM3 (150-450) Platelet Estimate LOW (NORMAL) Platelet Morphology Comment ENLARGED (NORMAL) Target Cells 1+ (NORMAL) Carbon Dioxide Level 18.9 MEQ/L (21.0-32.0) Ammonia 46 MCMOL/L (11-32) 47 MCMOL/L (11-32) Imaging Last Impressions Cyst Biopsy Asp-Paracentesis US 12/31/17 0000 Signed Impressions: Service Date/Time: Sunday, December 31, 2017 16:30 - CONCLUSION: Uncomplicated ultrasound guided paracentesis. Julian Brantley MD Head CT 12/30/17 0000 Signed Impressions: Service Date/Time: Saturday, December 30, 2017 19:58 - CONCLUSION: No acute disease. Roly Brantley MD FACR PE at Discharge GENERAL: NAD SKIN: Warm and dry.jaundiced HEAD: Normocephalic. EYES: + scleral icterus. No injection or drainage. NECK: Supple, trachea midline. No JVD or lymphadenopathy. CARDIOVASCULAR: Regular rate and rhythm without murmurs, gallops, or rubs. RESPIRATORY: Breath sounds equal bilaterally. No accessory muscle use. GASTROINTESTINAL: Abdomen soft, non-tender, nondistended. +HSM MUSCULOSKELETAL: No cyanosis, or edema. BACK: Nontender without obvious deformity. No CVA tenderness. Hospital Course while in the hospital, patient was treated for: Sepsis present on admission Now resolved Acute hepatic encephalopathy-resolved H/O psychosis History of alcohol dependence Treated with Invega 3 mg by mouth daily per psychiatry Treated with Rifaximin 40 mg by mouth every 8 hours, lactulose 45 cc by mouth 4 times a day and Thiamine 100 mg po daily Seizure precautions Ammonia level was monitored ESLD Coagulopathy MELD 26 on admission and now down to 23 Treated with prednisone 40 mg by mouth daily, pentoxifylline 40 mg by mouth every 8 hours, cholestyramine 4 g by mouth 3 times a day. s/p paracentesis Will need outpatient follow-up with [facility] secondary to Hepatorenal syndrome-Resolved Treated with Midrin 2.5 mg by mouth 3 times a day, octreotide 20 g by mouth every 8 hours , Aldactone 25 mg BID and Albumin 25 gram IV daily. Hypokalemia Replaced s/p electrolyte replacement SBP ruled out leukocytosis Mild abd discomfort and with worsening hepatic encephalopathy SBP ruled out by fluid studies Status post paracentesis with 8 L removed . Treated with Rocephin 2 g IV daily. Treated with vitamin K 5 mg by mouth daily, vitamin B-12 100 g by mouth daily, folic acid 1 mg by mouth daily. PROPH: SCDs for DVT prophylaxis. Avoid pharmacologic DVT prophylaxis due to coagulopathy and need for procedure. Protonix 40 mg by mouth daily. Pt Condition on Discharge: Good Discharge Disposition: Discharge Home Discharge Time: > 30 minutes Discharge Instructions DIET: Follow Instructions for: Heart Healthy Diet Activities you can perform: Weight Bearing as [place] Follow up Referrals: PCP Follow-up - 1 Week New Medications: Cholecalciferol (Gnp Vitamin D3 Extra Stre) 1,000 Unit Tab 1000 UNITS PO DAILY for Alcohol Detox, #90 TAB 3 Refills Cholestyramine (Cholestyramine) 4 Gm/Pkt Powd 4 GM PO TIDAC for Infection, #270 GM 3 Refills 1 packet contains 4 grams of cholestyramine. Cyanocobalamin (Vitamin B12) 100 Mcg Tab 100 MCG PO DAILY for Immunosuppression, #90 TAB 3 Refills Hydroxyzine HCl (Hydroxyzine HCl) 50 Mg Tab 50 MG PO Q6H PRN for itching, #120 TAB Midodrine (Midodrine) 5 Mg Tab 2.5 MG PO TID@07,12,17 for Blood Pressure Management, #270 TAB 3 Refills Paliperidone ER (Invega) 3 Mg Tab 3 MG PO DAILY for Control Anxiety, #90 TAB 3 Refills Pantoprazole (Pantoprazole) 40 Mg Tab 40 MG PO DAILY for Prevent Stress Ulcers, #90 TAB 3 Refills Pentoxifylline ER (Pentoxifylline ER) 400 Mg Tab 400 MG PO Q8H for Infection, #270 TAB 3 Refills Phytonadione Inj (Vitamin K1 Inj) 10 Mg/Ml Inj 5 MG PO DAILY for Alcohol Detox, #90 INJECTION 3 Refills Prednisolone Odt (Prednisolone Odt) 10 Mg Tab 40 MG PO DAILY for Immunosuppression, #90 TAB 3 Refills Rifaximin (Xifaxan) 200 Mg Tab 400 MG PO Q8HR for Infection, #270 TAB 3 Refills Spironolactone (Aldactone) 25 Mg Tab 25 MG PO BID@09,18 for Blood Pressure Management, #180 TAB 3 Refills Thiamine HCl (Gnp Vitamin B-1) 100 Mg Tab 100 MG PO DAILY for Alcohol Detox, #90 TAB 3 Refills [Lactulose Liq] () 30 ML SYRP 45 ML PO QID, #270 3 Refills Continued Medications: Folic Acid (Folic Acid) 1 Mg Tablet 1 MG PO DAILY for Nutritional Supplement, #30 TAB 0 Refills Oxycodone (Oxycodone) 5 Mg Tab 5 MG PO Q4H PRN for PAIN SCALE 4 TO 10, #20 TAB 0 Refills Potassium Chloride ER (Potassium Chloride ER) 10 Meq Cap 20 MEQ PO BID for Nutritional Supplement, #120 CAP 3 Refills (This prescription has been renewed) Sodium Bicarbonate (Sodium Bicarbonate) 650 Mg Tab 650 MG PO Q8HR for Nutritional Supplement, #90 TAB 0 Refills Discontinued Medications: Cholecalciferol (Gnp Vitamin D3 Extra Stre) 1,000 Unit Tab 1000 UNITS PO DAILY for Nutritional Supplement, #30 TAB 0 Refills Cholestyramine (Cholestyramine) 4 Gm/Pkt Powd 4 GM PO TIDAC for liver failure, #90 PKT 0 Refills 1 packet contains 4 grams of cholestyramine. Cyanocobalamin (Vitamin B12) 100 Mcg Tab 100 MCG PO DAILY for Nutritional Supplement, #30 TAB 0 Refills Hydroxyzine HCl (Hydroxyzine HCl) 25 Mg Tab 50 MG PO Q6H PRN for itching, #15 TAB 0 Refills Lactulose Liq (Lactulose Liq) 10 Gm/15 Ml Soln 30 ML PO Q6H PRN for Liver failure for 30 Days, #3600 ML 0 Refills Midodrine (Midodrine) 5 Mg Tab 2.5 MG PO TID@07,12,17 for Blood Pressure Management, #90 TAB 0 Refills Paliperidone ER (Invega) 3 Mg Tab 3 MG PO DAILY for Anxiety for 30 Days, #30 TAB Pantoprazole (Pantoprazole) 40 Mg Tab 40 MG PO DAILY for Reflux, #30 TAB 0 Refills Pentoxifylline ER (Pentoxifylline ER) 400 Mg Tab 400 MG PO Q8H for hepatitis, #90 TAB 0 Refills Phytonadione (Mephyton) 5 Mg Tab 5 MG PO DAILY for Liver failure, #30 TAB 0 Refills Prednisolone Odt (Prednisolone Odt) 10 Mg Tab 40 MG PO DAILY for Inflammation, #30 TAB 0 Refills Do not stop suddenly. Needs to be tapered off. Rifaximin (Xifaxan) 550 Mg Tab 550 MG PO BID for Liver failure, #60 TAB 0 Refills [Octreotide Inj] () 100 MCG/ML INJ 200 MCG SQ Q8H for Liver failure, #90 INJECTION 0 Refills Huey Aiken MD Jan 05, 2018 10:41
== END 2018-01-05 13:20 | disposition home or self-care (01) | DRG 871 ==
LOC: NEPC 15:26 → NEDA 18:50 → NEDH 22:53 → HIME 12-31 07:45 → N05A 01-02 18:16
PROVIDERS: ADMIT Hospitalist; ATTEND Hospitalist
PROC: 0W9G3ZZ Drainage of Peritoneal Cavity, Percutaneous Approach (ICD-10-PCS; principal; 2017-12-31)
DX: A41.9 Sepsis, unspecified organism (principal); K76.7 Hepatorenal syndrome; N17.9 Acute kidney failure, unspecified; D68.9 Coagulation defect, unspecified; K72.90 Hepatic failure, unspecified without coma; E87.6 Hypokalemia; K70.31 Alcoholic cirrhosis of liver with ascites; F17.210 Nicotine dependence, cigarettes, uncomplicated
CPT/HCPCS: 36600; 49083; 70450; 80053; 82042; 82140; 82805; 82948; 83615; 83735; 84100; 84132; 84155; 84157; 84439; 84443; 84481; 85007; 85025; 85027; 85610; 85730; 87015; 87040; 87070; 87205; 89051; 93005; 94150; 96365; C1729; J0696; J2354; J2543; J7510; P9047

== ENCOUNTER → 2018-01-09 | Outpatient (CLI) | payer OTHER ==
[~2018-01-09] MED LIST changes: -HYDR-3133 PO; +HYDR50TA94 PO; -LACT10SO PO; +Lactulose Liq PO; -OCTREOTIDE SQ; +PHYT10P PO; -PHYT5TAB2 PO; +SPIR25 PO; +THIA100 PO; +XIFA200T4 PO; -XIFA550T4 PO
[2018-01-09 09:43] LABS: AUTOMATED NEUTROPHIL # 19.1 TH/MM3 (1.8-7.7); BASOPHIL % 0.2 % (0.0-2.0); EOSINOPHIL # 0.1 TH/MM3 (0-0.4); EOSINOPHIL % 0.6 % (0.0-4.0); HEMATOCRIT 30.8 % (39.0-51.0); HEMOGLOBIN 10.7 GM/DL (13.0-17.0); LYMPH % 8.8 % (9.0-44.0); MEAN CELL VOLUME 101.3 FL (80.0-100.0); MEAN CORPUSCULAR HEMOGLOBIN 35.1 PG (27.0-34.0); MEAN CORPUSCULAR HGB CONC 34.7 % (32.0-36.0); MEAN PLATELET VOLUME 9.2 FL (7.0-11.0); MONO % 7.5 % (0.0-8.0); MONOCYTE # 1.7 TH/MM3 (0-0.9); NEUT % 82.9 % (16.0-70.0); PLATELET COUNT 136 TH/MM3 (150-450); RED BLOOD COUNT 3.04 MIL/MM3 (4.50-5.90); RED CELL DISTRIBUTION WIDTH 19.2 % (11.6-17.2)
[2018-01-09 09:44] LABS: INTERNATIONAL NORMALIZED RATIO 1.7 RATIO; PROTHROMBIN TIME - PATIENT 16.7 SEC (9.8-11.6)
[2018-01-09 10:06] LABS: ALBUMIN 2.7 GM/DL (3.4-5.0); ALT (GPT) 172 U/L (12-78); AST (GOT) 119 U/L (15-37); BICARBONATE 20.1 MEQ/L (21.0-32.0); BLOOD UREA NITROGEN 11 MG/DL (7-18); CALCIUM 8.7 MG/DL (8.5-10.1); CHLORIDE 108 MEQ/L (98-107); CREATININE 1.05 MG/DL (0.60-1.30); GLOMERULAR FILTRATION RATE 79 ML/MIN (>89); GLUCOSE,FASTING 73 MG/DL (74-99); SODIUM (NA) 138 MEQ/L (136-145)
[2018-01-09 10:17] LABS: ALKALINE PHOSPHATASE 215 U/L (45-117); TOTAL PROTEIN 6.3 GM/DL (6.4-8.2)
[2018-01-09 11:25] LABS: BANDS 1 % (0-6); LYMPHOCYTES 5 % (9-44); MONOCYTES 5 % (0-8); NEUTROPHIL # MANUAL DIFF 20.2 TH/MM3 (1.8-7.7); POLYS (SEG NEUTROPHILS) 87 % (16-70)
[2018-01-09 11:26] LABS: ACANTHOCYTES OCC (NORMAL)
== END ==
LOC: CLAB 09:08
PROVIDERS: ATTEND Internal Medicine Nephrology
DX: K76.7 Hepatorenal syndrome (principal); N18.2 Chronic kidney disease, stage 2 (mild); K70.30 Alcoholic cirrhosis of liver without ascites; K72.10 Chronic hepatic failure without coma; R17 Unspecified jaundice; R18.8 Other ascites
CPT/HCPCS: 36415; 80053; 82140; 85007; 85027; 85610

== ENCOUNTER → 2018-01-16 | Outpatient (CLI) | payer OTHER ==
[2018-01-16 08:36] LABS: INTERNATIONAL NORMALIZED RATIO 1.7 RATIO; PROTHROMBIN TIME - PATIENT 17.4 SEC (9.8-11.6)
[2018-01-16 08:37] LABS: AUTOMATED NEUTROPHIL # 17.5 TH/MM3 (1.8-7.7); BASOPHIL # 0.1 TH/MM3 (0-0.2); BASOPHIL % 0.3 % (0.0-2.0); EOSINOPHIL % 0.1 % (0.0-4.0); HEMATOCRIT 32.3 % (39.0-51.0); HEMOGLOBIN 11.3 GM/DL (13.0-17.0); LYMPH % 3.1 % (9.0-44.0); LYMPHOCYTE # 0.6 TH/MM3 (1.0-4.8); MEAN CELL VOLUME 100.7 FL (80.0-100.0); MEAN CORPUSCULAR HEMOGLOBIN 35.4 PG (27.0-34.0); MEAN CORPUSCULAR HGB CONC 35.1 % (32.0-36.0); MEAN PLATELET VOLUME 9.1 FL (7.0-11.0); MONO % 7.5 % (0.0-8.0); MONOCYTE # 1.5 TH/MM3 (0-0.9); PLATELET COUNT 184 TH/MM3 (150-450); RED BLOOD COUNT 3.21 MIL/MM3 (4.50-5.90); RED CELL DISTRIBUTION WIDTH 18.6 % (11.6-17.2); WHITE BLOOD COUNT 19.7 TH/MM3 (4.0-11.0)
[2018-01-16 09:06] LABS: BICARBONATE 19.4 MEQ/L (21.0-32.0); CALCIUM 8.9 MG/DL (8.5-10.1)
[2018-01-16 09:14] LABS: CREATININE 0.81 MG/DL (0.60-1.30)
[2018-01-16 10:48] LABS: BANDS 14 % (0-6); LYMPHOCYTES 4 % (9-44); METAMYELOCYTES 1 % (0-1); MONOCYTES 1 % (0-8); NEUTROPHIL # MANUAL DIFF 18.7 TH/MM3 (1.8-7.7); POLYS (SEG NEUTROPHILS) 80 % (16-70)
[2018-01-16 10:49] LABS: TARGET CELLS 1+ (NORMAL)
[2018-01-16 10:50] LABS: TOXIC GRANULATION 2+ (NORMAL)
== END ==
LOC: CLAB 08:05
PROVIDERS: ATTEND Internal Medicine Gastroenterology
DX: K70.10 Alcoholic hepatitis without ascites (principal); K70.30 Alcoholic cirrhosis of liver without ascites; R18.8 Other ascites; K72.10 Chronic hepatic failure without coma
CPT/HCPCS: 36415; 80048; 85007; 85027; 85610

== ENCOUNTER 2018-01-18 07:53 | Day surgery (SDC) | payer OTHER ==
[2018-01-18 08:14] VITALS: BP 125/81; PULSE 110; RESP 16; TEMP 98.8; O2SAT 99
[2018-01-18] MEDS ORDERED: ALBUMIN 25% INJ 0 ML IV ONE (09:00)
[2018-01-18 09:35] VITALS: BP 126/75; PULSE 103; RESP 18; TEMP 98.1; O2SAT 99
[2018-01-18] MEDS ORDERED: ALBUMIN HUMAN 25% 50 GM IV ONE (09:45)
[2018-01-18 09:50] VITALS: BP 116/71; PULSE 107; RESP 22; O2SAT 99
[2018-01-18] MEDS ORDERED: LIDOCAINE HCL 1% 20 ML VIAL ONE (10:13)
--- NOTE | 2018-01-18 13:02 | RADRPT ---
EXAM DATE/TIME: 01/18/2018 08:10 [place] COMPARISON: US GUIDED ABD PARACENTESIS, December 31, 2017, 16:30. INDICATIONS : Ascites. MEDICAL HISTORY : Gastroesophageal reflux disease. Hepatitis. ETOH use daily. Asthma. 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 ENCOUNTER: Subsequent ACUITY: 3 weeks PAIN SCORE: 2/10 LOCATION: Right lower quadrant FLUID: Total volume of 8200 cc of clear, yellow fluid was removed. Fluid was discarded. Paracentesis was therapeutic only. Post procedure scanning reveals no hematoma or other complication. TECHNIQUE: 1. Ultrasound guidance for abdominal paracentesis. 2. Paracentesis. The risks, benefits, and alternatives to ultrasound guided paracentesis were explained to the patient in detail including the risk of bleeding and infection. Written and verbal informed consent was obt ained. With the patient on the ultrasound table, ultrasound imaging was used to select the most appropriate approach for paracentesis. Overlying skin was prepped and draped in the usual sterile fashion and wi th a local anesthetic, a dermatotomy was made with an 11 blade scalpel. A 6 [place] Nal-P-etnfrxga ca theter was introduced into the peritoneal cavity and fluid was collected. The patient tolerated the procedure well and left the ultrasound suite in stable condition. CONCLUSION: Uncomplicated ultrasound guided paracentesis. Eddie Monteiro MD on January 18, 2018 at 13:00 Board Certified Radiologist. This report was verified electronically.
== END 2018-01-18 10:40 | disposition home or self-care (01) ==
LOC: HRAD 07:53 → HRIP 07:55 → HRAD 10:40
PROVIDERS: ATTEND Internal Medicine Gastroenterology
DX: R18.8 Other ascites (principal); K21.9 Gastro-esophageal reflux disease without esophagitis; J45.909 Unspecified asthma, uncomplicated
CPT/HCPCS: 49083; C1729

== ENCOUNTER 2018-01-29 04:02 | Inpatient (IN) | payer OTHER ==
[~2018-01-29] VITALS: Ht 182.9 cm; Wt 90.5 kg
[2018-01-29] VITALS (9 sets, daily range): BP systolic 115–126; BP diastolic 69–78; PULSE 81–111; RESP 16–24; TEMP 97.8–98.2; O2SAT 96–100
[2018-01-29] MEDS ORDERED: SODIUM CHLORIDE 0.9% FLUSH 10 ML FLUSH IVF PRN (04:45)
[2018-01-29] MEDS ORDERED: LACT10SO PO (05:28)
--- NOTE | 2018-01-29 05:41 | PD ---
HPI Chief Complaint: Respiratory Symptoms Time Seen by Provider: 04:43 Travel History International Travel<30 days: No Contact w/Intl Traveler<30days: No Traveled to known affect area: No History of Present Illness HPI 37-year-old male with alcoholic cirrhosis ascites and jaundice presents to the emergency department for complaint of worsening abdominal girth and shortness of breath. Patient underwent paracentesis approximately 2 weeks ago. Patient is currently on antibiotic and diet denies fever or chills. Mother reports that jaundice has actually improved from last hospitalization. 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 Patient has been taking medications as prescribed including lactulose and diuretics. Patient has had reflux but has not had vomiting no reported coffee-ground emesis or hematemesis. No report of black tarry stools. Patient has not had near syncope or syncope. Patient rates overall discomfort 3/10 in intensity. PFSH Past Medical History Narrative Medical Asthma cirrhosis hepatitis C alcoholism paracentesis tobacco use; nursing notes reviewed Asthma: Yes (possibly) Autoimmune Disease: No Cancer: No Cardiovascular Problems: No Cirrhosis: Yes Diabetes: No Diminished Hearing: No Endocrine: No Gastrointestinal Disorders: Yes (LIVER ) GERD: Yes Genitourinary: Yes Hepatitis: Yes (ALCOHOL INDUCED) Immune Disorder: No Musculoskeletal: No Psychiatric: No Reproductive: No Respiratory: Yes (Asthma) Past Surgical History Other Surgery: Yes (fatty tumor removed from skull) Social History Alcohol Use: No (hx abuse) Tobacco Use: Yes (couple a day) Substance Use: No Allergies-Medications (Allergen,Severity, Reaction): Coded Allergies: No Known Allergies (Verified , 12/30/17) Reported Meds & Prescriptions Reported Meds & Active Scripts Active Gnp Vitamin D3 Extra Stre (Cholecalciferol) 1,000 Unit Tab 1,000 Units PO DAILY Gnp Vitamin B-1 (Thiamine HCl) 100 Mg Tab 100 Mg PO DAILY Vitamin B12 (Cyanocobalamin) 100 Mcg Tab 100 Mcg PO DAILY Prednisolone Odt 10 Mg Tab 40 Mg PO DAILY Pantoprazole (Pantoprazole Sodium) 40 Mg Tab 40 Mg PO DAILY Hydroxyzine HCl 50 Mg Tab 50 Mg PO Q6H PRN Aldactone (Spironolactone) 25 Mg Tab 25 Mg PO BID@ Cholestyramine 4 Gm/Pkt Powd 4 Gm PO TIDAC 1 packet contains 4 grams of cholestyramine. Pentoxifylline ER (Pentoxifylline) 400 Mg Tab 400 Mg PO Q8H Midodrine 5 Mg Tab 2.5 Mg PO TID@07,12,17 Xifaxan (Rifaximin) 200 Mg Tab 400 Mg PO Q8HR Potassium Chloride ER (Potassium Chloride) 10 Meq Cap 20 Meq PO BID Folic Acid 1 Mg Tablet 1 Mg PO DAILY Sodium Bicarbonate 650 Mg Tab 650 Mg PO Q8HR Oxycodone (Oxycodone HCl) 5 Mg Tab 5 Mg PO Q4H PRN Reported Lactulose Liq (Lactulose) 10 Gm/15 Ml Soln 40 Ml PO BID Review of Systems Except as stated in HPI: all other systems reviewed are Neg General / Constitutional: No: Fever, Chills HENT: No: Congestion Cardiovascular: No: Chest Pain or Discomfort Respiratory: Positive: Shortness of Breath, No: Wheezing Gastrointestinal: Positive: Nausea, Abdominal Pain, No: Vomiting Genitourinary: No: Dysuria, Flank Pain Musculoskeletal: No: Myalgias, Arthralgias Skin: No Rash Neurologic: Positive: Weakness Psychiatric: No: Anxiety Hematologic/Lymphatic: No: Lymph Node Enlargement Physical Exam Narrative GENERAL: Well-developed well-nourished ill-appearing male with jaundice SKIN: Warm and dry. Few ecchymoses. HEAD: Normocephalic. EYES: Scleral icterus. No injection or drainage. NECK: Supple, trachea midline. No JVD or lymphadenopathy. CARDIOVASCULAR: Regular rate and rhythm without murmurs, gallops, or rubs. RESPIRATORY: Breath sounds equal bilaterally. No accessory muscle use. GASTROINTESTINAL: Abdomen soft, non-tender, with fluid wave nondistended. MUSCULOSKELETAL: No cyanosis, or edema. BACK: Nontender without obvious deformity. No CVA tenderness. Data Data Last Documented VS Vital Signs Date Time Temp Pulse Resp B/P (MAP) Pulse Ox O2 Delivery O2 Flow Rate FiO2 01/29/18 06:48 98 Room Air 01/29/18 06:48 106 20 120/69 (86) 01/29/18 04:05 98.1 Orders Orders Complete Blood Count With Diff (01/29/18 04:43) Comprehensive Metabolic Panel (01/29/18 04:43) B-Type Natriuretic Peptide (01/29/18 04:43) Act Partial Throm Time (Ptt) (01/29/18 04:43) Prothrombin Time / Inr (Pt) (01/29/18 04:43) Magnesium (Mg) (01/29/18 04:43) Troponin I (01/29/18 04:43) Urinalysis - C+S If Indicated (01/29/18 04:43) Iv Access Insert/Monitor (01/29/18 04:43) Ecg Monitoring (01/29/18 04:43) Oximetry (01/29/18 04:43) Oxygen Administration (01/29/18 04:43) Chest, Single Ap (01/29/18 04:43) Sodium Chloride 0.9% Flush (Ns Flush) (01/29/18 04:45) Ammonia (01/29/18 04:43) Blood Culture (01/29/18 04:43) D-Dimer (01/29/18 06:16) Piperacil-Tazo 4.5 Gm Premix (Zosyn 4.5 (01/29/18 07:30) Lactulose Liq (Lactulose Liq) (01/29/18 07:30) Ct Pulmonary Angiogram (01/29/18 ) Ct Abd/Pel W Iv Contrast(Rout) (01/29/18 ) Labs Laboratory Tests Test 01/29/18 00:00 01/29/18 05:05 01/29/18 05:25 Ammonia 60 MCMOL/L White Blood Count 27.0 TH/MM3 Red Blood Count 3.32 MIL/MM3 Hemoglobin 11.4 GM/DL Hematocrit 33.4 % Mean Corpuscular Volume 100.7 FL Mean Corpuscular Hemoglobin 34.4 PG Mean Corpuscular Hemoglobin Concent 34.2 % Red Cell Distribution Width 16.3 % Platelet Count 219 TH/MM3 Mean Platelet Volume 9.0 FL Neutrophils (%) (Auto) 84.6 % Lymphocytes (%) (Auto) 10.7 % Monocytes (%) (Auto) 4.5 % Eosinophils (%) (Auto) 0.0 % Basophils (%) (Auto) 0.2 % Neutrophils # (Auto) 22.8 TH/MM3 Lymphocytes # (Auto) 2.9 TH/MM3 Monocytes # (Auto) 1.2 TH/MM3 Eosinophils # (Auto) 0.0 TH/MM3 Basophils # (Auto) 0.0 TH/MM3 CBC Comment AUTO DIFF Differential Total Cells Counted 100 Neutrophils % (Manual) 92 % Band Neutrophils % 3 % Lymphocytes % 1 % Monocytes % 4 % Neutrophils # (Manual) 25.7 TH/MM3 Differential Comment FINAL DIFF MANUAL Toxic Granulation 2+ Platelet Estimate NORMAL Platelet Morphology Comment NORMAL Target Cells 1+ Ovalocytes 1+ Prothrombin Time 14.4 SEC Prothromb Time International Ratio 1.4 RATIO Activated Partial Thromboplast Time 28.8 SEC D-Dimer Quantitative (PE/DVT) 5.39 MG/L FEU Blood Urea Nitrogen 38 MG/DL Creatinine 1.32 MG/DL Random Glucose 167 MG/DL Total Protein 6.0 GM/DL Albumin 1.9 GM/DL Calcium Level 8.3 MG/DL Magnesium Level 2.0 MG/DL Alkaline Phosphatase 310 U/L Aspartate Amino Transf (AST/SGOT) 87 U/L Alanine Aminotransferase (ALT/SGPT) 99 U/L Total Bilirubin 18.2 MG/DL Sodium Level 131 MEQ/L Potassium Level 4.5 MEQ/L Chloride Level 103 MEQ/L Carbon Dioxide Level 14.2 MEQ/L Anion Gap 14 MEQ/L Estimat Glomerular Filtration Rate 60 ML/MIN Troponin I LESS THAN 0.02 NG/ML B-Type Natriuretic Peptide 49 PG/ML Urine Color LIGHT-BROWN Urine Turbidity CLEAR Urine pH 6.0 Urine Specific Brothers 1.018 Urine Protein TRACE mg/dL Urine Glucose (UA) NEG mg/dL Urine Ketones NEG mg/dL Urine Occult Blood NEG Urine Nitrite NEG Urine Bilirubin LARGE Urine Urobilinogen 2.0 MG/DL Urine Leukocyte Esterase NEG Urine RBC LESS THAN 1 /hpf Urine WBC 2 /hpf Urine Squamous Epithelial Cells <1 /hpf Urine Renal Epithelial Cells <1 /hpf Urine Hyaline Casts 114 /lpf Urine Granular Casts 5 /lpf Urine Mucus FEW /lpf Microscopic Urinalysis Comment CULT NOT INDICATED MDM Medical Decision Making Medical Screen Exam Complete: Yes Emergency Medical Condition: Yes Interpretation(s) NH3: 60, elevated d-dimer: 5.39, elevated Last Impressions Chest X-Ray 01/29/18 0443 Signed Impressions: Service Date/Time: Monday, January 29, 2018 04:49 - CONCLUSION: Rotated film with possible developing pleural-parenchymal process Inderjit Ramirez MD CBC & BMP Diagram 01/29/18 05:05 Total Protein 6.0 L, Albumin 1.9 L, Calcium Level 8.3 L, Magnesium Level 2.0, Alkaline Phosphatase 310 H, Aspartate Amino Transf (AST/SGOT) 87 H, Alanine Aminotransferase (ALT/SGPT) 99 H, Total Bilirubin 18.2 H Vital Signs Date Time Temp Pulse Resp B/P (MAP) Pulse Ox O2 Delivery O2 Flow Rate FiO2 01/29/18 06:48 98 Room Air 01/29/18 06:48 106 20 120/69 (86) 98 Room Air 01/29/18 06:48 20 98 Room Air 01/29/18 04:39 108 20 118/75 (89) 99 Room Air 01/29/18 04:05 98.1 81 24 120/78 (92) Differential Diagnosis Anemia, intravascular volume depletion, worsening ascites, hepatorenal failure, SBP Narrative Course IV access obtained specimens collected and sent for resulting Patient placed on supplemental oxygen 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 and continuous pulse oximetry IV access obtained Chest x-ray shows rotation with concern for right lower lobe infiltrate no free air CBC is automated differential marked leukocytosis with left shift patient on review of records identifies to have chronic elevation of white cell count possible myelodysplastic or taste on hematology consult however in view of dyspnea and infiltrate will treat with IV antibiotics Metabolic panel remarkable for renal insufficiency markedly abnormal LFTs and hyperbilirubinemia as well as mild hepatic encephalopathy with ammonia of 16 D-dimer is elevated at 5.36 CT pulmonary angiogram ordered and will extend imaging to include abdomen and pelvis At 7:40 care signed over to oncoming physician Dr. Huitron for final disposition Physician Communication Physician Communication call placed to [facility] Diagnosis Primary Impression: Dyspnea Additional Impressions: Right pulmonary infiltrate on CXR Hyperammonemia End-stage liver disease Linda Borges MD January 29, 2018 05:41
[2018-01-29 05:46] LABS: AUTOMATED NEUTROPHIL # 22.8 TH/MM3 (1.8-7.7); BASOPHIL % 0.2 % (0.0-2.0); HEMATOCRIT 33.4 % (39.0-51.0); HEMOGLOBIN 11.4 GM/DL (13.0-17.0); LYMPH % 10.7 % (9.0-44.0); LYMPHOCYTE # 2.9 TH/MM3 (1.0-4.8); MEAN CELL VOLUME 100.7 FL (80.0-100.0); MEAN CORPUSCULAR HEMOGLOBIN 34.4 PG (27.0-34.0); MEAN CORPUSCULAR HGB CONC 34.2 % (32.0-36.0); MONO % 4.5 % (0.0-8.0); MONOCYTE # 1.2 TH/MM3 (0-0.9); NEUT % 84.6 % (16.0-70.0); PLATELET COUNT 219 TH/MM3 (150-450); RED BLOOD COUNT 3.32 MIL/MM3 (4.50-5.90); RED CELL DISTRIBUTION WIDTH 16.3 % (11.6-17.2)
[2018-01-29 05:54] LABS: INTERNATIONAL NORMALIZED RATIO 1.4 RATIO; PROTHROMBIN TIME - PATIENT 14.4 SEC (9.8-11.6)
[2018-01-29 06:00] LABS: ALT (GPT) 99 U/L (12-78)
[2018-01-29 06:05] LABS: BILIRUBIN, URINE LARGE (NEG); BLOOD, URINE NEG (NEG); GLUCOSE,URINE NEG (NEG); HYALINE CAST, URINE 114 /lpf (RARE); KETONE, URINE NEG (NEG); MUCUS URINE FEW /lpf (OCC); NITRITE,URINE NEG (NEG); RENAL EPITHELIAL CELLS <1 /hpf; SQUAMOUS EPITHELIAL CELL URINE <1 /hpf (0-5); URINE LEUKOCYTE ESTERASE NEG (NEG)
[2018-01-29 06:06] LABS: URINE COLOR LIGHT-BROWN (YELLW/STRAW)
[2018-01-29 06:15] LABS: ALBUMIN 1.9 GM/DL (3.4-5.0); ALKALINE PHOSPHATASE 310 U/L (45-117); AST (GOT) 87 U/L (15-37); BICARBONATE 14.2 MEQ/L (21.0-32.0); BLOOD UREA NITROGEN 38 MG/DL (7-18); CALCIUM 8.3 MG/DL (8.5-10.1); CHLORIDE 103 MEQ/L (98-107); CREATININE 1.32 MG/DL (0.60-1.30); GLOMERULAR FILTRATION RATE 60 ML/MIN (>89); GLUCOSE,RANDOM 167 MG/DL (74-106); SODIUM (NA) 131 MEQ/L (136-145); TOTAL BILIRUBIN ADULT 18.2 MG/DL (0.2-1.0); TROPONIN I LESS THAN 0.02 NG/ML (0.02-0.05)
--- NOTE | 2018-01-29 06:22 | RADRPT ---
EXAM DATE/TIME: 01/29/2018 04:49 [facility] COMPARISON: CHEST SINGLE AP, November 30, 2017, 17:13. INDICATIONS : Shortness of breath. MEDICAL HISTORY : Gastroesophageal reflux disease. Hepatitis. ETOH use daily. Asthma SURGICAL HISTORY : Fatty tumor removed from skull ENCOUNTER: Initial ACUITY: 1 day PAIN SCORE: 7/10 LOCATION: Bilateral chest FINDINGS: There is slight hazy opacity over the lung maier bilaterally, slightly more prominent on the left th an the right. Layering effusion or mild diffuse parenchymal process cannot be excluded area accountin g for rotation, the cardiac contours are grossly satisfactory. CONCLUSION: Rotated film with possible developing pleural-parenchymal process Inderjit Ramirez MD on January 29, 2018 at 6:19 Board Certified Radiologist. This report was verified electronically.
[2018-01-29 06:46] LABS: BANDS 3 % (0-6); LYMPHOCYTES 1 % (9-44); MONOCYTES 4 % (0-8); NEUTROPHIL # MANUAL DIFF 25.7 TH/MM3 (1.8-7.7); POLYS (SEG NEUTROPHILS) 92 % (16-70)
[2018-01-29 06:47] LABS: TARGET CELLS 1+ (NORMAL); TOXIC GRANULATION 2+ (NORMAL)
[2018-01-29 06:48] LABS: OVALOCYTES 1+ (NORMAL)
[2018-01-29] MEDS ORDERED: LACTULOSE SYRUP 20 GM/30 ML CUP PO ONE (07:30)
[2018-01-29] MEDS ORDERED: PIPERACIL-TAZO 4.5 GM PREMIX 100 ML IV ONE (07:30)
[2018-01-29] MEDS ORDERED: IOHEXOL 350 MG/ML 10 ML VIAL (for RAD DIAG) IVCONTRAST ONE (08:11)
[2018-01-29] MEDS ORDERED: VANCOMYCIN INJ 1,350 MG in SODIUM CHLORID 0.9% 500 ML INJ 500 ML IV ONE (08:15)
--- NOTE | 2018-01-29 08:51 | RADRPT ---
EXAM DATE/TIME: 01/29/2018 08:25 [facility] COMPARISON: No previous studies available for comparison. INDICATIONS : Shortness of breath. IV CONTRAST: 96 cc Omnipaque 350 (iohexol) IV RADIATION DOSE: 8.31 CTDIvol (mGy) MEDICAL HISTORY : Cirrhosis. Gastroesophageal reflux disease. SURGICAL HISTORY : None. ENCOUNTER: Initial ACUITY: 1 day PAIN SCALE: 0/10 LOCATION: Bilateral chest TECHNIQUE: Volumetric scanning of the chest was performed using a pulmonary embolism protocol MIP images were re constructed. Using automated exposure control and adjustment of the mA and/or kV according to patien t size, radiation dose was kept as low as reasonably achievable to obtain optimal diagnostic quality images. DICOM format image data is available electronically for review and comparison. Follow-up recommendations for detected pulmonary nodules are based at a minimum on nodule size and pa tient risk factors according to Fleischner Society Guidelines. FINDINGS: PULMONARY ARTERIES: No filling defects are seen in the pulmonary arteries through the segmental level. LUNGS: There is no consolidation or pneumothorax . No concerning pulmonary nodule is visualized. There is a calcified granuloma in the left lower lobe. Atelectasis is present at the lung bases, right greater than left. PLEURAE: There is no pleural thickening or pleural effusion. MEDIASTINUM: Heart and great vessels demonstrate no acute finding. There is trace pericardial fluid. MUSCULOSKELETAL: No acute osseous abnormality is identified. MISCELLANEOUS: Please refer to abdomen and pelvis CT report for description of the subdiaphragmatic findings. CONCLUSION: 1. No PE is identified. Additionally, no acute finding is identified within the chest. 2. Please refer to abdomen and pelvis CT report for description of the subdiaphragmatic findings. Inderjit Shields MD on January 29, 2018 at 8:45 Board Certified Radiologist. This report was verified electronically.
--- NOTE | 2018-01-29 09:11 | RADRPT ---
EXAM DATE/TIME: 01/29/2018 08:25 [facility] COMPARISON: CT ABDOMEN & PELVIS W CONTRAST, November 11, 2017, 17:19. INDICATIONS : Abdominal distention. IV CONTRAST: 96 cc Omnipaque 350 (iohexol) IV ; Cumulative dose for multiple exams. ORAL CONTRAST: No oral contrast ingested. RADIATION DOSE: 15.40 CTDIvol (mGy) MEDICAL HISTORY : Gastroesophageal reflux disease. Cirrhosis. SURGICAL HISTORY : None. ENCOUNTER: Initial ACUITY: 1 day PAIN SCALE: 3/10 LOCATION: Bilateral abdomen TECHNIQUE: Volumetric scanning of the abdomen and pelvis was performed. Using automated exposure control and ad justment of the mA and/or kV according to patient size, radiation dose was kept as low as reasonably achievable to obtain optimal diagnostic quality images. DICOM format image data is available electro nically for review and comparison. FINDINGS: LOWER LUNGS: Please refer to chest CT report for description of the supradiaphragmatic findings. LIVER: The liver measures 19.9 cm in length. It demonstrates a nodular contour with a slightly heterogeneous appearance. No focal lesion is definitively seen. Portal vein is patent. Gallbladder is decompressed with diffuse gallbladder wall edema. There is no dilation of the biliary tree. SPLEEN: Normal size without lesion. PANCREAS: Within normal limits. KIDNEYS: Normal in size and shape. There is no mass, stone or hydronephrosis. ADRENAL GLANDS: Within normal limits. VASCULAR: There is mild atherosclerotic disease. No aneurysm is present. Varices are present within the abdomen . BOWEL/MESENTERY: The stomach, small bowel, and colon demonstrate no acute abnormality. There is no free intraperitone al air. There is moderate to large volume of free fluid in the abdomen and pelvis. The volume of flui d has increased from the prior study. ABDOMINAL WALL: There is an umbilical hernia containing fluid. RETROPERITONEUM: There is no lymphadenopathy. BLADDER: No wall thickening or mass. REPRODUCTIVE: Within normal limits. INGUINAL: There is no lymphadenopathy or hernia. MUSCULOSKELETAL: No acute osseous abnormality is identified. CONCLUSION: 1. The abdominal distention is caused by a moderate to a large volume of ascites related to the patie nt's chronic liver disease. 2. The liver demonstrates features indicative of cirrhosis. There are also findings indicative of por traci hypertension including the collateral blood vessels and the ascites. Inderjit Shields MD on January 29, 2018 at 9:00 Board Certified Radiologist. This report was verified electronically.
[2018-01-29] MEDS ORDERED: Vancomycin Consult Pharmacy 1 EA OTHER SCH ×2 (09:15→10:00)
[2018-01-29] MEDS ORDERED: ACETAMINOPHEN 325 MG TAB PO PRN (10:00)
[2018-01-29] MEDS ORDERED: NALOXONE HCL 0.4 MG/ML AMP IV PUSH PRN (10:00)
[2018-01-29] MEDS ORDERED: VANCOMYCIN INJ 1,750 MG in SODIUM CHLORID 0.9% 500 ML INJ 500 ML IV ONE (10:00)
[2018-01-29] MEDS ORDERED: SODIUM CHLORIDE 0.9% FLUSH 10 ML FLUSH IV FLUSH PRN (10:00)
[2018-01-29] MEDS ORDERED: VANCOMYCIN INJ 1,000 MG in SODIUM CHLOR 0.9% 250 ML INJ 250 ML IV SCH ×4 (10:00)
[2018-01-29] MEDS ORDERED: ONDANSETRON HCL 4 MG/2 ML VIAL IVP PRN (10:00)
[2018-01-29] MEDS: ENOXAPARIN SODIUM 40 MG/0.4 ML SYRINGE SQ SCH (11:00)
[2018-01-29] MEDS: SODIUM CHLOR 0.45% 1000 ML INJ 1,000 ML IV SCH ×2 (11:08→21:52)
[2018-01-29] MEDS: PIPERACIL-TAZO 4.5 GM PREMIX 100 ML IV SCH (15:08)
--- NOTE | 2018-01-29 18:15 | HHI.HP ---
HPI Service [facility] Hospitalists Primary Care Physician Gabriel Gil DO Admission Diagnosis Pneumonia Diagnoses: Chief Complaint: abdominal pain Travel History International Travel<30 Days: No Contact w/Intl Traveler <30 Da: No Traveled to Known Affected Are: No Sepsis Criteria SIRS Criteria (2 or more): Heart rate over 90, WBC > 36298, < 4000 or > 10% bands Sepsis Criteria (SIRS+source): Infect source susp/known History of Present Illness This is a 37-year-old male with past medical history of end-stage liver disease , hepatorenal syndrome presents to [facility] complaining of increased abdominal pain and girth, mild shortness of breath. Denies chest pain. The patient is irritable and is refusing to talk very much. The patient states he has abdominal pain and generalized pain. The patient has been seen in the emergency department and chest x-ray showed an infiltrate. Patient admitted for treatment of pneumonia. The patient otherwise denies diarrhea, chest pain, dysuria. He states that he has sores all over his body for the past 4 months. Review of Systems As per HPI, other systems reviewed by me and negative. Past Family Social History Past Medical History Alcohol Abuse, ESLD, Hepatorenal Syndrome and Chronic Leukocytosis Past Surgical History None Reported Medications Reported Meds & Active Scripts Active Gnp Vitamin D3 Extra Stre (Cholecalciferol) 1,000 Unit Tab 1,000 Units PO DAILY Gnp Vitamin B-1 (Thiamine HCl) 100 Mg Tab 100 Mg PO DAILY Vitamin B12 (Cyanocobalamin) 100 Mcg Tab 100 Mcg PO DAILY Prednisolone Odt 10 Mg Tab 40 Mg PO DAILY Pantoprazole (Pantoprazole Sodium) 40 Mg Tab 40 Mg PO DAILY Hydroxyzine HCl 50 Mg Tab 50 Mg PO Q6H PRN Aldactone (Spironolactone) 25 Mg Tab 25 Mg PO BID@09,18 Cholestyramine 4 Gm/Pkt Powd 4 Gm PO TIDAC 1 packet contains 4 grams of cholestyramine. Pentoxifylline ER (Pentoxifylline) 400 Mg Tab 400 Mg PO Q8H Midodrine 5 Mg Tab 2.5 Mg PO TID@,,17 Xifaxan (Rifaximin) 200 Mg Tab 400 Mg PO Q8HR Potassium Chloride ER (Potassium Chloride) 10 Meq Cap 20 Meq PO BID Folic Acid 1 Mg Tablet 1 Mg PO DAILY Sodium Bicarbonate 650 Mg Tab 650 Mg PO Q8HR Oxycodone (Oxycodone HCl) 5 Mg Tab 5 Mg PO Q4H PRN Reported Lactulose Liq (Lactulose) 10 Gm/15 Ml Soln 40 Ml PO BID Allergies: Coded Allergies: No Known Allergies (Verified , 12/30/17) Active Ordered Medications Current Medications Medications (Trade) Dose Ordered Sig/Virgil Route Start Time Stop Time Status Last Admin (NS Flush) 2 ml UNSCH PRN IVF 01/29/18 04:45 Pharmacy Profile Note 0 ml @ 0 mls/hr UNSCH OTHER 01/29/18 09:15 Sodium Chloride 1,000 ml @ 75 mls/hr [id number] IV 01/29/18 09:47 01/29/18 11:08 (NS Flush) 2 ml UNSCH PRN IV FLUSH 01/29/18 10:00 (NS Flush) 2 ml BID IV FLUSH 01/29/18 21:00 (Tylenol) 650 mg Q4H PRN PO 01/29/18 10:00 (Zofran Inj) 4 mg Q6H PRN IVP 01/29/18 10:00 (Lovenox Inj) 40 mg Q24H SQ 01/29/18 11:00 (Narcan Inj) 0.4 mg UNSCH PRN IV PUSH 01/29/18 10:00 (Katie-Colace) 1 tab BID PO 01/29/18 21:00 Piperacillin Sod/ Tazobactam Sod 100 ml @ 200 mls/hr Q8H IV 01/29/18 16:00 01/29/18 15:08 Vancomycin HCl 1750 mg/Sodium Chloride 517.5 ml @ 257.5 mls/ hr Q12H IV 01/29/18 23:00 ([facility] Ordered Lab Info) SPECIFIC LAB TO BE AYANA... ONCE ONCE .XX 01/30/18 22:45 01/30/18 22:46 Family History Mother has kidney stones Father has no relevant medical history Sister had malignant hyperthermia Social History He previously drank alcohol "excessively" but his family is not able to quantify because they state that he hid it from them for many years. He has abstained from alcohol for the last month. He recently lost 100 pounds after his fianc broke off the engagement. He has smoked since he was a teenager and still smokes bout 4 cigarettes per day His parents are visiting from [place] and has been staying with him for the last month. Physical Exam Vital Signs Vital Signs Date Time Temp Pulse Resp B/P (MAP) Pulse Ox O2 Delivery O2 Flow Rate FiO2 01/29/18 16:54 98.2 107 16 122/72 (89) 98 01/29/18 13:30 98 01/29/18 12:33 97.8 104 16 115/70 (85) 96 01/29/18 11:18 01/29/18 10:00 94 16 118/74 (89) 100 Nasal Cannula 2.00 01/29/18 08:00 100 18 117/75 (89) 100 Nasal Cannula 2.00 01/29/18 06:48 98 Room Air 01/29/18 06:48 106 20 120/69 (86) 98 Room Air 01/29/18 06:48 20 98 Room Air 01/29/18 04:39 108 20 118/75 (89) 99 Room Air 01/29/18 04:05 98.1 81 24 120/78 (92) Physical Exam GENERAL: This is a well-nourished, well-developed patient, in mild pain distress. SKIN: No rashes, ecchymoses or lesions. Cool and dry. Significant jaundice. There are several sores all over the patient's body. The source look around and with a crusty scar over them. HEAD: Atraumatic. Normocephalic. No temporal or scalp tenderness. EYES: Pupils equal round and reactive. Extraocular motions intact. + scleral icterus. No injection or drainage. ENT: Nose without bleeding, purulent drainage or septal hematoma. Throat without erythema, tonsillar hypertrophy or exudate. Uvula midline. Airway patent. NECK: Trachea midline. No JVD or lymphadenopathy. Supple, nontender, no meningeal signs. CARDIOVASCULAR: Regular rate and rhythm without murmurs, gallops, or rubs. RESPIRATORY: Clear to auscultation. Breath sounds equal bilaterally. No wheezes , rales, or rhonchi. GASTROINTESTINAL: Abdomen soft, diffusely tender to palpation, distended with a positive ascitic fluid wave. No hepato-splenomegaly, or palpable masses. No guarding. MUSCULOSKELETAL: Extremities without clubbing, cyanosis, or edema. No joint tenderness, effusion, or edema noted. No calf tenderness. Negative Homans sign bilaterally. NEUROLOGICAL: Awake and alert. Cranial nerves II through XII intact. Motor and sensory grossly within normal limits. Five out of 5 muscle strength in all muscle groups. Normal speech. Laboratory Laboratory Tests Test 01/29/18 00:00 01/29/18 05:05 01/29/18 05:25 Ammonia 60 White Blood Count 27.0 Red Blood Count 3.32 Hemoglobin 11.4 Hematocrit 33.4 Mean Corpuscular Volume 100.7 Mean Corpuscular Hemoglobin 34.4 Mean Corpuscular Hemoglobin Concent 34.2 Red Cell Distribution Width 16.3 Platelet Count 219 Mean Platelet Volume 9.0 Neutrophils (%) (Auto) 84.6 Lymphocytes (%) (Auto) 10.7 Monocytes (%) (Auto) 4.5 Eosinophils (%) (Auto) 0.0 Basophils (%) (Auto) 0.2 Neutrophils # (Auto) 22.8 Lymphocytes # (Auto) 2.9 Monocytes # (Auto) 1.2 Eosinophils # (Auto) 0.0 Basophils # (Auto) 0.0 CBC Comment AUTO DIFF Differential Total Cells Counted 100 Neutrophils % (Manual) 92 Band Neutrophils % 3 Lymphocytes % 1 Monocytes % 4 Neutrophils # (Manual) 25.7 Differential Comment FINAL DIFF MANUAL Toxic Granulation 2+ Platelet Estimate NORMAL Platelet Morphology Comment NORMAL Target Cells 1+ Ovalocytes 1+ Prothrombin Time 14.4 Prothromb Time International Ratio 1.4 Activated Partial Thromboplast Time 28.8 D-Dimer Quantitative (PE/DVT) 5.39 Blood Urea Nitrogen 38 Creatinine 1.32 Random Glucose 167 Total Protein 6.0 Albumin 1.9 Calcium Level 8.3 Magnesium Level 2.0 Alkaline Phosphatase 310 Aspartate Amino Transf (AST/SGOT) 87 Alanine Aminotransferase (ALT/SGPT) 99 Total Bilirubin 18.2 Sodium Level 131 Potassium Level 4.5 Chloride Level 103 Carbon Dioxide Level 14.2 Anion Gap 14 Estimat Glomerular Filtration Rate 60 Troponin I LESS THAN 0.02 B-Type Natriuretic Peptide 49 Urine Color LIGHT-BROWN Urine Turbidity CLEAR Urine pH 6.0 Urine Specific [place] 1.018 Urine Protein TRACE Urine Glucose (UA) NEG Urine Ketones NEG Urine Occult Blood NEG Urine Nitrite NEG Urine Bilirubin LARGE Urine Urobilinogen 2.0 Urine Leukocyte Esterase NEG Urine RBC LESS THAN 1 Urine WBC 2 Urine Squamous Epithelial Cells <1 Urine Renal Epithelial Cells <1 Urine Hyaline Casts 114 Urine Granular Casts 5 Urine Mucus FEW Microscopic Urinalysis Comment CULT NOT INDICATED Date/Time Source Procedure Growth Status 01/29/18 05:10 Blood Peripheral Aerobic Blood Culture Pending Received 01/29/18 05:10 Blood Peripheral Anaerobic Blood Culture Pending Received Result Diagram: 01/29/18 0505 01/29/18 0505 Imaging Last Impressions Chest X-Ray 01/29/18 0443 Signed Impressions: Service Date/Time: Monday, January 29, 2018 04:49 - CONCLUSION: Rotated film with possible developing pleural-parenchymal process Inderjit Ramirez MD CT Angiography 01/29/18 0000 Signed Impressions: Service Date/Time: Monday, January 29, 2018 08:25 - CONCLUSION: 1. No PE is identified. Additionally, no acute finding is identified within the chest. 2. Please refer to abdomen and pelvis CT report for description of the subdiaphragmatic findings. Inderjit Shields MD Abdomen/Pelvis CT 01/29/18 0000 Signed Impressions: Service Date/Time: Monday, January 29, 2018 08:25 - CONCLUSION: 1. The abdominal distention is caused by a moderate to a large volume of ascites related to the patient's chronic liver disease. 2. The liver demonstrates features indicative of cirrhosis. There are also findings indicative of portal hypertension including the collateral blood vessels and the ascites. Inderjit Shields MD Images reviewed by me. Caprini VTE Risk Assessment Caprini VTE Risk Assessment: Mod/High Risk (score >= 2) Caprini Risk Assessment Model Point Value = 1 Point Value = 2 Point Value = 3 Point Value = 5 Age 41-60 Minor surgery BMI > 25 kg/m2 Swollen legs Varicose veins or History of unexplained or recurrent spontaneous Oral contraceptives or hormone replacement Sepsis (< 1 month) Serious lung disease, including pneumonia (< 1 month) Abnormal pulmonary function Acute myocardial infarction Congestive heart failure (< 1 month) History of inflammatory bowel disease Medical patient at bed rest Age 61-74 Arthroscopic surgery Major open surgery (> 45 min) Laparoscopic surgery (> 45 min) Malignancy Confined to bed (> 72 hours) Immobilizing plaster cast Central venous access Age >= 75 History of VTE Family history of VTE Factor V Leiden Prothrombin [id number] Lupus anticoagulant Anticardiolipin antibodies Elevated serum homocysteine Heparin-induced thrombocytopenia Other congenital or acquired thrombophilia Stroke (< 1 month) Elective arthroplasty Hip, pelvis, or leg fracture Acute spinal cord injury (< 1 month) Prophylaxis Regimen Total Risk Factor Score Risk Level Prophylaxis Regimen 0-1 Low Early ambulation 2 Moderate Order ONE of the following: *Sequential Compression Device (SCD) *Heparin 5000 units SQ BID 3-4 Higher Order ONE of the following medications: *Heparin 5000 units SQ TID *Enoxaparin/Lovenox 40 mg SQ daily (WT < 150 kg, CrCl > 30 mL/min) *Enoxaparin/Lovenox 30 mg SQ daily (WT < 150 kg, CrCl > 10-29 mL/min) *Enoxaparin/Lovenox 30 mg SQ BID (WT < 150 kg, CrCl > 30 mL/min) AND/OR *Sequential Compression Device (SCD) 5 or more Highest Order ONE of the following medications: *Heparin 5000 units SQ TID (Preferred with Epidurals) *Enoxaparin/Lovenox 40 mg SQ daily (WT < 150 kg, CrCl > 30 mL/min) *Enoxaparin/Lovenox 30 mg SQ daily (WT < 150 kg, CrCl > 10-29 mL/min) *Enoxaparin/Lovenox 30 mg SQ BID (WT < 150 kg, CrCl > 30 mL/min) AND *Sequential Compression Device (SCD) Assessment and Plan Problem List: (1) Sepsis ICD Code: A41.9 - Sepsis, unspecified organism Plan: Sepsis present on admission. Patient with tachycardia and worsening leukocytosis. Please note that the patient has a history of chronic leukocytosis but upon review of previous lab results this is worsened. Admit the patient to the medical floor IV fluids IV broad-spectrum antibiotics with IV vancomycin and IV Zosyn. Suspect sepsis likely secondary to spontaneous bacterial peritonitis versus possible developing pneumonia. Will treat as H CAP since patient has been recently hospitalized within the last 3 months. Check blood cultures Check lactic acid. (2) Hepatic encephalopathy ICD Code: K72.90 - Hepatic failure, unspecified without coma Status: Acute Plan: Ammonia elevated at 60. Patient is sleepy on exam. I will place on lactulose. (3) Cirrhosis with alcoholism ICD Code: K70.30 - Alcoholic cirrhosis of liver without ascites Status: Chronic Plan: Patient with severe ascites. We will order ultrasound-guided abdominal paracentesis and send fluid for analysis. Continue rifaximin, pentoxifylline, cholestyramine, hold the spironolactone, continue lactulose, continue prednisolone (4) Leukocytosis ICD Code: D72.829 - Elevated white blood cell count, unspecified Plan: Patient has worsening leukocytosis. Upon review of records the patient has a baseline WBC count which is in the 20,000s. Patient has a WBC count of 20 7K. Monitor CBC with differential. (5) Hyperammonemia ICD Code: E72.20 - Disorder of urea cycle metabolism, unspecified Status: Acute Plan: Continue lactulose monitor ammonia levels. (6) Dyspnea ICD Code: R06.00 - Dyspnea, unspecified Status: Acute Plan: Dyspnea could be related to developing possible infiltrates and also abdominal distention from ascites. (7) End-stage liver disease ICD Code: K72.90 - Hepatic failure, unspecified without coma Plan: As above. Due to alcoholic cirrhosis. (8) Macrocytic anemia ICD Code: D53.9 - Nutritional anemia, unspecified Plan: Likely secondary to hepatic disease. Hemoglobin 9.4. Monitor CBC. Assessment and Plan DVT prophylaxis: Lovenox of subcutaneously. Code Status Full code Discussed Condition With Patient, ED physician. Problem Qualifiers (1) Sepsis: Qualified Codes: A41.9 - Sepsis, unspecified organism (2) Cirrhosis with alcoholism: Qualified Codes: K70.31 - Alcoholic cirrhosis of liver with ascites (3) Leukocytosis: Qualified Codes: D72.829 - Elevated white blood cell count, unspecified (4) Dyspnea: Qualified Codes: R06.00 - Dyspnea, unspecified Mello Patel MD January 29, 2018 18:15
[2018-01-29] MEDS ORDERED: PILL SPLITTER OTHER PRN (19:15)
[2018-01-29 19:51] LABS: HEMATOCRIT 31.7 % (39.0-51.0); HEMOGLOBIN 10.9 GM/DL (13.0-17.0); MEAN CELL VOLUME 100.2 FL (80.0-100.0); MEAN CORPUSCULAR HEMOGLOBIN 34.6 PG (27.0-34.0); MEAN CORPUSCULAR HGB CONC 34.5 % (32.0-36.0); MEAN PLATELET VOLUME 8.6 FL (7.0-11.0); PLATELET COUNT 217 TH/MM3 (150-450); RED BLOOD COUNT 3.16 MIL/MM3 (4.50-5.90); RED CELL DISTRIBUTION WIDTH 15.9 % (11.6-17.2); WHITE BLOOD COUNT 30.2 TH/MM3 (4.0-11.0)
[2018-01-29 20:11] LABS: INTERNATIONAL NORMALIZED RATIO 1.5 RATIO; PROTHROMBIN TIME - PATIENT 15.3 SEC (9.8-11.6)
[2018-01-29 20:13] LABS: TOTAL PROTEIN 5.8 GM/DL (6.4-8.2)
[2018-01-29] MEDS: DOCUSATE SODIUM 50 MG/SENNA 8.6 MG TAB PO SCH (21:00)
[2018-01-29] MEDS: SODIUM BICARBONATE 650 MG TAB PO SCH (23:51)
[2018-01-29] MEDS: VANCOMYCIN INJ 1,750 MG in SODIUM CHLORID 0.9% 500 ML INJ 500 ML IV SCH (23:51)
[2018-01-29] MEDS: PENTOXIFYLLINE 400 MG CONTROLLED RELEASE TAB PO SCH (23:51)
[2018-01-29] MEDS: RIFAXIMIN 200 MG TAB PO SCH (23:51)
[2018-01-29] MEDS: LACTULOSE SYRUP 20 GM/30 ML CUP PO SCH (23:52)
[2018-01-29] MEDS: SODIUM CHLORIDE 0.9% FLUSH 10 ML FLUSH IV FLUSH SCH (23:52)
[2018-01-30] VITALS (11 sets, daily range): BP systolic 116–128; BP diastolic 66–82; PULSE 89–108; RESP 16–20; TEMP 97.4–98.4; O2SAT 96–99
[2018-01-30] MEDS: PIPERACIL-TAZO 4.5 GM PREMIX 100 ML IV SCH ×4 (02:39→23:56)
[2018-01-30] MEDS ORDERED: hydrOXYzine HCL 25 MG TAB PO ONE (05:15)
[2018-01-30] MEDS: MIDODRINE 5 MG TAB PO SCH ×3 (05:33→17:11)
[2018-01-30] MEDS: PENTOXIFYLLINE 400 MG CONTROLLED RELEASE TAB PO SCH ×3 (05:33→23:55)
[2018-01-30] MEDS: SODIUM BICARBONATE 650 MG TAB PO SCH ×3 (05:33→23:55)
[2018-01-30] MEDS: RIFAXIMIN 200 MG TAB PO SCH ×3 (05:34→23:56)
[2018-01-30 06:49] LABS: MAGNESIUM 1.9 MG/DL (1.5-2.5); PHOSPHORUS 2.1 MG/DL (2.5-4.9)
[2018-01-30] MEDS ORDERED: ALBUMIN 25% INJ 0 ML IV ONE (09:00)
[2018-01-30] MEDS: SODIUM CHLORIDE 0.9% FLUSH 10 ML FLUSH IV FLUSH SCH ×2 (09:00→23:56)
--- NOTE | 2018-01-30 09:52 | RADRPT ---
EXAM DATE/TIME: 01/29/2018 20:01 [place] COMPARISON: US GUIDED ABD PARACENTESIS, January 18, 2018, 8:10. INDICATIONS : Ascites. MEDICAL HISTORY : Gastroesophageal reflux disease. Hepatitis. ETOH use daily. Asthma. 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 ENCOUNTER: Sequela ACUITY: 2 weeks PAIN SCORE: 0/10 LOCATION: Right lower quadrant FLUID: Total volume of 8,400 cc of clear, yellow fluid was removed. Fluid was sent to lab for ordered studies. Post procedure scanning reveals no hematoma or other complication. TECHNIQUE: 1. Ultrasound guidance for abdominal paracentesis. 2. Paracentesis. The risks, benefits, and alternatives to ultrasound guided paracentesis were explained to the patient in detail including the risk of bleeding and infection. Written and verbal informed consent was obt ained. With the patient on the ultrasound table, ultrasound imaging was used to select the most appropriate approach for paracentesis. Overlying skin was prepped and draped in the usual sterile fashion and wi th a local anesthetic, a dermatotomy was made with an 11 blade scalpel. A 6 [place] [id number] ca theter was introduced into the peritoneal cavity and fluid was collected. The patient tolerated the procedure well and left the ultrasound suite in stable condition. CONCLUSION: Uncomplicated ultrasound guided paracentesis. Patient received albumin per protocol. The Roly Brantley MD FACR on January 30, 2018 at 9:50 Board Certified Radiologist. This report was verified electronically.
[2018-01-30] MEDS: ENOXAPARIN SODIUM 40 MG/0.4 ML SYRINGE SQ SCH (11:00)
[2018-01-30] MEDS: prednisoLONE 10 MG ODT TAB PO SCH (11:03)
[2018-01-30] MEDS: THIAMINE HCL 100 MG TAB PO SCH (11:03)
[2018-01-30] MEDS: PANTOPRAZOLE SOD 40 MG DELAYED RELEASE TAB PO SCH (11:03)
[2018-01-30] MEDS: LACTULOSE SYRUP 20 GM/30 ML CUP PO SCH ×4 (11:03→23:55)
[2018-01-30] MEDS: DOCUSATE SODIUM 50 MG/SENNA 8.6 MG TAB PO SCH ×2 (11:03→23:55)
[2018-01-30] MEDS: CHOLESTYRAMINE 4 GM PACKET PO SCH ×3 (11:04→18:26)
[2018-01-30] MEDS: CHOLECALCIFEROL (VIT D3) 1000 UNIT TAB PO SCH (11:04)
[2018-01-30] MEDS: FOLIC ACID 1 MG TAB PO SCH (11:04)
[2018-01-30 11:11] LABS: TOTAL PROTEIN,PERITONEAL FLUID 0.4 GM/DL
[2018-01-30 11:24] LABS: PERITONEAL RBC 0 /MM3 (0-0)
[2018-01-30 11:26] LABS: PERITONEAL HISTIOCYTES 13 %; PERITONEAL LYMPHS 48 %; PERITONEAL MESOTHELIAL 2 %; PERITONEAL MONOS 19 %; PERITONEAL POLYS(SEGS) 15 %
[2018-01-30] MEDS: SODIUM CHLOR 0.45% 1000 ML INJ 1,000 ML IV SCH ×2 (11:57→17:52)
[2018-01-30] MEDS: CYANOCOBALAMIN 100 MCG TAB PO SCH (11:58)
[2018-01-30] MEDS ORDERED: LIDOCAINE HCL 1% 20 ML VIAL ONE (12:31)
[2018-01-30] MEDS: VANCOMYCIN INJ 1,750 MG in SODIUM CHLORID 0.9% 500 ML INJ 500 ML IV SCH ×2 (12:48→23:54)
[2018-01-30] MEDS ORDERED: HYDR50TA94 PO (15:00)
--- NOTE | 2018-01-30 15:59 | HHI.PR ---
Subjective Remarks Patient wants to go home Denies cp/sob Afebrile c/o itching Objective Vitals Vital Signs Date Time Temp Pulse Resp B/P (MAP) Pulse Ox O2 Delivery O2 Flow Rate FiO2 01/30/18 14:46 97.6 89 19 120/75 (90) 99 01/30/18 14:29 21 01/30/18 11:49 97.4 108 19 117/70 (86) 97 01/30/18 08:10 97.4 106 20 126/82 (97) 99 01/30/18 08:00 98 01/30/18 04:24 98.2 108 16 123/81 (95) 97 01/30/18 00:04 97.7 102 16 124/81 (95) 98 01/29/18 20:16 98.0 111 16 126/77 (93) 98 01/29/18 16:54 98.2 107 16 122/72 (89) 98 I/O 01/29/18 01/29/18 01/29/18 01/30/18 01/30/18 01/30/18 06:59 14:59 22:59 06:59 14:59 22:59 Intake Total 100 ml Balance 100 ml Intake IV Total 100 ml Result Diagram: 01/29/18 1830 01/29/18 0505 Imaging Last Impressions Cyst Biopsy Asp-Paracentesis US 01/30/18 0000 Signed Impressions: Service Date/Time: Monday, January 29, 2018 20:01 - CONCLUSION: Uncomplicated ultrasound guided paracentesis. Patient received albumin per protocol. The Roly Brantley MD FACR Chest X-Ray 01/29/18 0443 Signed Impressions: Service Date/Time: Monday, January 29, 2018 04:49 - CONCLUSION: Rotated film with possible developing pleural-parenchymal process Inderjit Ramirez MD CT Angiography 01/29/18 0000 Signed Impressions: Service Date/Time: Monday, January 29, 2018 08:25 - CONCLUSION: 1. No PE is identified. Additionally, no acute finding is identified within the chest. 2. Please refer to abdomen and pelvis CT report for description of the subdiaphragmatic findings. Inderjit Shields MD Abdomen/Pelvis CT 01/29/18 0000 Signed Impressions: Service Date/Time: [place], January 29, 2018 08:25 - CONCLUSION: 1. The abdominal distention is caused by a moderate to a large volume of ascites related to the patient's chronic liver disease. 2. The liver demonstrates features indicative of cirrhosis. There are also findings indicative of portal hypertension including the collateral blood vessels and the ascites. Inderjit Shields MD Objective Remarks GENERAL: This is a well-nourished, well-developed patient, in mild pain distress. SKIN: No rashes, ecchymoses or lesions. Cool and dry. Significant jaundice. There are several sores all over the patient's body. The source look around and with a crusty scar over them. HEAD: Atraumatic. Normocephalic. No temporal or scalp tenderness. EYES: Pupils equal round and reactive. Extraocular motions intact. + scleral icterus. No injection or drainage. ENT: Nose without bleeding, purulent drainage or septal hematoma. Throat without erythema, tonsillar hypertrophy or exudate. Uvula midline. Airway patent. NECK: Trachea midline. No JVD or lymphadenopathy. Supple, nontender, no meningeal signs. CARDIOVASCULAR: Regular rate and rhythm without murmurs, gallops, or rubs. RESPIRATORY: Clear to auscultation. Breath sounds equal bilaterally. No wheezes , rales, or rhonchi. GASTROINTESTINAL: Abdomen soft, diffusely tender to palpation, distended with a positive ascitic fluid wave. No hepato-splenomegaly, or palpable masses. No guarding. MUSCULOSKELETAL: Extremities without clubbing, cyanosis, or edema. No joint tenderness, effusion, or edema noted. No calf tenderness. Negative Homans sign bilaterally. NEUROLOGICAL: Awake and alert. Cranial nerves II through XII intact. Motor and sensory grossly within normal limits. Five out of 5 muscle strength in all muscle groups. Normal speech. A/P Problem List: (1) Sepsis ICD Code: A41.9 - Sepsis, unspecified organism Plan: Sepsis present on admission. Patient with tachycardia and worsening leukocytosis. Please note that the patient has a history of chronic leukocytosis but upon review of previous lab results this is worsened. Admit the patient to the medical floor IV fluids IV broad-spectrum antibiotics with IV vancomycin and IV Zosyn. Suspect sepsis likely secondary to spontaneous bacterial peritonitis versus possible developing pneumonia. Will treat as H CAP since patient has been recently hospitalized within the last 3 months. 01/30 Patient growing Staph aureus in blood culture 1/ bottles. Repeat blood cultures, Consult ID. Continue IV antibiotics as above. (2) Hepatic encephalopathy ICD Code: K72.90 - Hepatic failure, unspecified without coma Status: Acute Plan: Ammonia elevated at 60 on admission and patient sleepy on exam. Patient's lactulose continued however frequency increased to QID. 5/ Ammonia Level down to less than 10. PAtient more awake. Continue Lactulose. . (3) Cirrhosis with alcoholism ICD Code: K70.30 - Alcoholic cirrhosis of liver without ascites Status: Chronic Plan: Patient with severe ascites. We will order ultrasound-guided abdominal paracentesis and send fluid for analysis. Continue rifaximin, pentoxifylline, cholestyramine, hold the spironolactone, continue lactulose, continue prednisolone. 5/7 sp Abdominal paracentesis. Ascitic fluid analysis does not look infectious. (4) Leukocytosis ICD Code: D72.829 - Elevated white blood cell count, unspecified Plan: Patient has worsening leukocytosis. Upon review of records the patient has a baseline WBC count which is in the 20,000s. Patient has a WBC count of 27K. Monitor CBC with differential. 01/30 WBC even more elevated at 30.2K. Continue to monitor cbc w diff. (5) Hyperammonemia ICD Code: E72.20 - Disorder of urea cycle metabolism, unspecified Status: Resolved Plan: Continue lactulose monitor ammonia levels. (6) Dyspnea ICD Code: R06.00 - Dyspnea, unspecified Status: Acute Plan: Dyspnea could be related to developing possible infiltrates and also abdominal distention from ascites. supplemental o2 (7) End-stage liver disease ICD Code: K72.90 - Hepatic failure, unspecified without coma Plan: As above. Due to alcoholic cirrhosis. (8) Macrocytic anemia ICD Code: D53.9 - Nutritional anemia, unspecified Plan: Likely secondary to hepatic disease. Hemoglobin 9.4. Monitor CBC. (9) Coagulopathy ICD Code: D68.9 - Coagulation defect, unspecified Plan: Due to liver disease. Monitor INR. Will Rx Vitamin K. (10) Itching ICD Code: L29.9 - Pruritus, unspecified Status: Chronic Plan: Resume Atarax. Likely due to bile salts accumulation from increased bilirubin. Assessment and Plan DVT proph: DC Lovenox SQ due to recent paracentesis and concurrent coagulopathy. SCD's. Discharge Planning Pending repeat blood cultures. ID consult. Problem Qualifiers (1) Sepsis: Qualified Codes: A41.9 - Sepsis, unspecified organism (2) Cirrhosis with alcoholism: Qualified Codes: K70.31 - Alcoholic cirrhosis of liver with ascites (3) Leukocytosis: Qualified Codes: D72.829 - Elevated white blood cell count, unspecified (4) Dyspnea: Qualified Codes: R06.00 - Dyspnea, unspecified Mello Patel MD January 30, 2018 15:59
[2018-01-30] MEDS: SPIRONOLACTONE 25 MG TAB PO SCH (17:10)
[2018-01-30] MEDS: hydrOXYzine HCL 50 MG TAB PO PRN (18:01)
[2018-01-30] MEDS ORDERED: PHARMACY ORDERED LAB ONE (22:45)
--- NOTE | 2018-01-30 23:23 | MB ---
cc: Cj Kaplan MD DATE: 01/30/2018 REQUESTING PHYSICIAN: Dr. Neumann REASON FOR CONSULTATION: Positive blood culture. HISTORY OF PRESENT ILLNESS: This is a 37-year-old white male who has history of liver cirrhosis. The patient has had multiple paracentesis procedures for reaccumulation of ascites fluid. He is followed by gastroenterology. He reports that he was doing well since his last hospitalization last month. He presented to the Emergency Department because of respiratory symptoms with increasing abdominal girth and shortness of breath. His mother reports that he was having difficulty breathing and he had to be sitting upright and leaning forward in order to get his air. On evaluation, the heart rate was 106 and a white blood cell count was elevated at 27.0. He underwent paracentesis and 8.4 liters of clear yellow fluid was removed, the ascites. WBC was 11 and 0 red cells, 15% neutrophils. Blood cultures were taken and 1 bottle of 4 has Staph aureus. Peritoneal fluid culture is pending. Chest x-ray was performed yesterday and it showed possible developing pleural parenchymal process. CT scan of the abdomen and pelvis had revealed a large volume of ascites and features indicative of cirrhosis. There were also findings indicating portal hypertension. Currently, the patient is feeling better. He states that his breathing is much improved. He is able to take deep breaths. He has no abdominal pain currently. The patient states that his appetite has been good and he has been drinking a lot of protein shakes. PAST MEDICAL HISTORY: End-stage liver disease, hepatorenal syndrome, alcohol abuse (patient notes that he has not had a drink in 6 months). ALLERGIES: NO KNOWN DRUG ALLERGIES. MEDICATIONS: Vancomycin, Trental, rifaximin, piperacillin/tazobactam, lactulose, patric-Colace, Lovenox, thiamine, prednisolone, Protonix, folate, vitamin D3, Aldactone, Atarax, potassium. SOCIAL HISTORY: The patient reportedly smokes a couple cigarettes a day. No alcohol use. No illicit drugs. FAMILY HISTORY: Noncontributory. REVIEW OF SYSTEMS: Pertinents mentioned above. PHYSICAL EXAMINATION: GENERAL: This is a well-developed male who is awake and alert. He is markedly jaundiced. VITAL SIGNS: Temperature 98.0, BP 116/66, respirations 18, heart rate 104. HEENT: Head atraumatic. Extraocular movements grossly intact. Positive icterus. Oropharynx, slightly dry mucosa without lesions. NECK: Supple without adenopathy. LUNGS: Clear breath sounds. HEART: Regular S1 and S2, without murmurs. ABDOMEN: Obese, soft, no tenderness appreciated. RECTAL: Not performed. EXTREMITIES: No clubbing, cyanosis or edema. Diffuse excoriated lesions on the arms, legs and abdomen. These are tiny round, dry lesions. SKIN: Jaundice. No diffuse rash. SKIN: Warm and moist. NEUROLOGIC: No gross focal finding. PSYCHIATRIC: The patient calm and cooperative. LABORATORY DATA: WBC 30.2, hemoglobin 10.9, platelet count 217, AST 87, ALT 99, alkaline phosphatase 310, total bilirubin 18.2, creatinine 1.32, BUN 38, estimated GFR 60. IMPRESSION: 1. Staphylococcus aureus bacteremia, questionable source. Possible related to spontaneous bacterial peritonitis. However, the fluid from the ascites was clear and the white count is unremarkable. 2. Leukocytosis, probably secondary to infection. He does have underlying leukocytosis, but the white count is higher than previous. 3. Abnormal chest x-ray per the chest x-ray report on 01/29. However, he has no cough or sputum production to suggest pneumonia. 4. Alcoholic cirrhosis, with recurrent ascites. RECOMMENDATIONS: 1. Continue vancomycin. 2. Continue piperacillin/tazobactam. 3. Monitor the blood cultures. 4. Monitor ascites fluid cultures. 5. Monitor the white blood cell count. 6. Monitor clinical status. If the Staph aureus is a sensitive strain, then we can change the vancomycin to another antibiotic. Thank you for this consultation. I will monitor the patient's progress with you and will make further recommendations upon followup if necessary. MD MAYELIN Burrell/THIAGO/ruben , 08:17 PM , 09:31 PM
[2018-01-30] MEDS: POTASSIUM CHLORIDE 10 MEQ CAP PO SCH (23:55)
[2018-01-31] VITALS (7 sets, daily range): BP systolic 108–133; BP diastolic 59–94; PULSE 94–106; RESP 16–18; TEMP 97.7–98.3; O2SAT 96–100
[2018-01-31] MEDS: hydrOXYzine HCL 50 MG TAB PO PRN ×3 (01:20→21:40)
[2018-01-31] MEDS: SODIUM CHLOR 0.45% 1000 ML INJ 1,000 ML IV SCH ×3 (03:52→23:52)
[2018-01-31] MEDS: MIDODRINE 5 MG TAB PO SCH ×3 (06:38→18:38)
[2018-01-31] MEDS: SODIUM BICARBONATE 650 MG TAB PO SCH ×3 (06:38→21:40)
[2018-01-31] MEDS: PENTOXIFYLLINE 400 MG CONTROLLED RELEASE TAB PO SCH ×3 (06:38→21:39)
[2018-01-31] MEDS: CHOLESTYRAMINE 4 GM PACKET PO SCH ×3 (06:38→18:37)
[2018-01-31] MEDS: RIFAXIMIN 200 MG TAB PO SCH ×3 (06:38→21:40)
[2018-01-31 07:07] LABS: AUTOMATED NEUTROPHIL # 23.9 TH/MM3 (1.8-7.7); EOSINOPHIL # 0.1 TH/MM3 (0-0.4); EOSINOPHIL % 0.3 % (0.0-4.0); HEMATOCRIT 32.6 % (39.0-51.0); HEMOGLOBIN 11.2 GM/DL (13.0-17.0); LYMPHOCYTE # 1.1 TH/MM3 (1.0-4.8); MEAN CELL VOLUME 100.7 FL (80.0-100.0); MEAN CORPUSCULAR HEMOGLOBIN 34.7 PG (27.0-34.0); MEAN CORPUSCULAR HGB CONC 34.5 % (32.0-36.0); MEAN PLATELET VOLUME 8.8 FL (7.0-11.0); MONO % 7.1 % (0.0-8.0); MONOCYTE # 1.9 TH/MM3 (0-0.9); NEUT % 88.6 % (16.0-70.0); PLATELET COUNT 204 TH/MM3 (150-450); RED BLOOD COUNT 3.23 MIL/MM3 (4.50-5.90); RED CELL DISTRIBUTION WIDTH 15.7 % (11.6-17.2)
[2018-01-31 08:59] LABS: BANDS 2 % (0-6); LYMPHOCYTES 3 % (9-44); MONOCYTES 8 % (0-8); MYELOCYTES 1 % (0-0); POLYS (SEG NEUTROPHILS) 86 % (16-70)
[2018-01-31 09:00] LABS: HOWELL-JOLLY BODIES PRESENT (NONE SEEN)
[2018-01-31] MEDS: CYANOCOBALAMIN 100 MCG TAB PO SCH (09:00)
[2018-01-31] MEDS: DOCUSATE SODIUM 50 MG/SENNA 8.6 MG TAB PO SCH ×2 (09:12→21:39)
[2018-01-31] MEDS: CHOLECALCIFEROL (VIT D3) 1000 UNIT TAB PO SCH (09:12)
[2018-01-31] MEDS: SPIRONOLACTONE 25 MG TAB PO SCH ×2 (09:12→18:38)
[2018-01-31] MEDS: FOLIC ACID 1 MG TAB PO SCH (09:12)
[2018-01-31] MEDS: POTASSIUM CHLORIDE 10 MEQ CAP PO SCH ×2 (09:12→21:39)
[2018-01-31] MEDS: PANTOPRAZOLE SOD 40 MG DELAYED RELEASE TAB PO SCH (09:12)
[2018-01-31] MEDS: LACTULOSE SYRUP 20 GM/30 ML CUP PO SCH ×2 (09:12→21:38)
[2018-01-31] MEDS: prednisoLONE 10 MG ODT TAB PO SCH (09:12)
[2018-01-31] MEDS: THIAMINE HCL 100 MG TAB PO SCH (09:12)
[2018-01-31] MEDS: PIPERACIL-TAZO 4.5 GM PREMIX 100 ML IV SCH ×2 (09:13→18:38)
[2018-01-31] MEDS: SODIUM CHLORIDE 0.9% FLUSH 10 ML FLUSH IV FLUSH SCH ×2 (09:13→21:00)
[2018-01-31] MEDS ORDERED: PHARMACY ORDERED LAB ONE (10:45)
[2018-01-31] MEDS: VANCOMYCIN INJ 1,750 MG in SODIUM CHLORID 0.9% 500 ML INJ 500 ML IV SCH (11:37)
[2018-01-31 12:12] LABS: AMYLASE BODY FLUID 29 U/L; AMYLASE BODY FLUID TYPE PERITONEAL
[2018-01-31 12:24] LABS: ALBUMIN 1.7 GM/DL (3.4-5.0); ALKALINE PHOSPHATASE 271 U/L (45-117); ALT (GPT) 94 U/L (12-78); AST (GOT) 71 U/L (15-37); BICARBONATE 16.9 MEQ/L (21.0-32.0); BLOOD UREA NITROGEN 21 MG/DL (7-18); CALCIUM 8.3 MG/DL (8.5-10.1); CHLORIDE 105 MEQ/L (98-107); CREATININE 0.82 MG/DL (0.60-1.30); GLOMERULAR FILTRATION RATE 105 ML/MIN (>89); GLUCOSE,RANDOM 136 MG/DL (74-106); SODIUM (NA) 132 MEQ/L (136-145); TOTAL PROTEIN 5.6 GM/DL (6.4-8.2)
[2018-01-31 12:26] LABS: TOTAL BILIRUBIN ADULT 15.3 MG/DL (0.2-1.0)
--- NOTE | 2018-01-31 19:33 | HHI.PR ---
Subjective Remarks Denies fevers or chills Denies cp/sob Objective Vitals Vital Signs Date Time Temp Pulse Resp B/P (MAP) Pulse Ox O2 Delivery O2 Flow Rate FiO2 01/31/18 16:05 98.1 96 18 128/77 (94) 96 01/31/18 15:42 20 01/31/18 11:54 97.9 97 18 118/75 (89) 98 01/31/18 07:59 97.9 98 18 124/74 (91) 99 01/31/18 03:56 98.3 98 16 108/59 (75) 97 01/31/18 00:00 98.0 94 16 116/72 (87) 97 01/30/18 22:10 97 01/30/18 20:00 98.4 105 17 128/73 (91) 98 I/O 01/30/18 01/30/18 01/30/18 01/31/18 01/31/18 01/31/18 07:00 15:00 23:00 07:00 15:00 23:00 Intake Total 517.5 ml Balance 517.5 ml Intake IV Total 517.5 ml Result Diagram: 01/31/18 0620 01/31/18 1053 Imaging Last Impressions Cyst Biopsy Asp-Paracentesis US 01/30/18 0000 Signed Impressions: Service Date/Time: Monday, January 29, 2018 20:01 - CONCLUSION: Uncomplicated ultrasound guided paracentesis. Patient received albumin per protocol. The Roly Brantley MD FACR Chest X-Ray 01/29/18 0443 Signed Impressions: Service Date/Time: Monday, January 29, 2018 04:49 - CONCLUSION: Rotated film with possible developing pleural-parenchymal process Inderjit Ramirez MD CT Angiography 01/29/18 0000 Signed Impressions: Service Date/Time: Monday, January 29, 2018 08:25 - CONCLUSION: 1. No PE is identified. Additionally, no acute finding is identified within the chest. 2. Please refer to abdomen and pelvis CT report for description of the subdiaphragmatic findings. Inderjit Shields MD Abdomen/Pelvis CT 01/29/18 0000 Signed Impressions: Service Date/Time: Monday, January 29, 2018 08:25 - CONCLUSION: 1. The abdominal distention is caused by a moderate to a large volume of ascites related to the patient's chronic liver disease. 2. The liver demonstrates features indicative of cirrhosis. There are also findings indicative of portal hypertension including the collateral blood vessels and the ascites. Inderjit Shields MD Objective Remarks GENERAL: This is a well-nourished, well-developed patient, in mild pain distress. SKIN: No rashes, ecchymoses or lesions. Cool and dry. Significant jaundice. There are several sores all over the patient's body. The source look around and with a crusty scar over them. HEAD: Atraumatic. Normocephalic. No temporal or scalp tenderness. EYES: Pupils equal round and reactive. Extraocular motions intact. + scleral icterus. No injection or drainage. ENT: Nose without bleeding, purulent drainage or septal hematoma. Throat without erythema, tonsillar hypertrophy or exudate. Uvula midline. Airway patent. NECK: Trachea midline. No JVD or lymphadenopathy. Supple, nontender, no meningeal signs. CARDIOVASCULAR: Regular rate and rhythm without murmurs, gallops, or rubs. RESPIRATORY: Clear to auscultation. Breath sounds equal bilaterally. No wheezes , rales, or rhonchi. GASTROINTESTINAL: Abdomen soft, diffusely tender to palpation, distended with a positive ascitic fluid wave. No hepato-splenomegaly, or palpable masses. No guarding. MUSCULOSKELETAL: Extremities without clubbing, cyanosis, or edema. No joint tenderness, effusion, or edema noted. No calf tenderness. Negative Homans sign bilaterally. NEUROLOGICAL: Awake and alert. Cranial nerves II through XII intact. Motor and sensory grossly within normal limits. Five out of 5 muscle strength in all muscle groups. Normal speech. Procedures none Medications and IVs Current Medications Medications (Trade) Dose Ordered Sig/Virgil Route Start Time Stop Time Status Last Admin Pharmacy Profile Note 0 ml @ 0 mls/hr UNSCH OTHER 01/29/18 09:15 Sodium Chloride 1,000 ml @ 100 mls/hr Q10H IV 01/29/18 09:47 01/30/18 11:57 (NS Flush) 2 ml UNSCH PRN IV FLUSH 01/29/18 10:00 (NS Flush) 2 ml BID IV FLUSH 01/29/18 21:00 01/31/18 09:13 (Tylenol) 650 mg Q4H PRN PO 01/29/18 10:00 (Zofran Inj) 4 mg Q6H PRN IVP 01/29/18 10:00 (Narcan Inj) 0.4 mg UNSCH PRN IV PUSH 01/29/18 10:00 (Katie-Colace) 1 tab BID PO 01/29/18 21:00 01/31/18 21:39 Piperacillin Sod/ Tazobactam Sod 100 ml @ 200 mls/hr Q8H IV 01/29/18 16:00 02/01/18 00:25 (Vitamin D3) 1,000 units DAILY PO 01/30/18 09:00 01/31/18 09:12 (Questran 4 Gm Pkt) 4 gm TIDAC PO 01/30/18 08:00 01/31/18 18:37 (Vitamin B12) 100 mcg DAILY PO 01/30/18 09:00 01/31/18 09:00 (Folate) 1 mg DAILY PO 01/30/18 09:00 01/31/18 09:12 (Proamatine) 2.5 mg TID@,, PO 01/30/18 07:00 02/01/18 06:41 (Protonix) 40 mg DAILY PO 01/30/18 09:00 01/31/18 09:12 (TRENtal SR) 400 mg Q8H PO 01/29/18 22:00 02/01/18 06:41 (Orapred Odt) 40 mg DAILY PO 01/30/18 09:00 01/31/18 09:12 (Xifaxan) 400 mg Q8HR PO 01/29/18 22:00 02/01/18 06:41 (Sodium Bicarbonate) 650 mg Q8HR PO 01/29/18 22:00 02/01/18 06:41 (Vitamin B1) 100 mg DAILY PO 01/30/18 09:00 01/31/18 09:12 (Pill Splitter) 1 ea UNSCH PRN OTHER 01/29/18 19:15 (Atarax) 50 mg Q6H PRN PO 01/30/18 16:00 01/31/18 21:40 (Roxicodone) 5 mg Q4H PRN PO 01/30/18 16:00 01/31/18 21:39 (KCl) 20 meq BID PO 01/30/18 21:00 01/31/18 21:39 (Aldactone) 25 mg BID@09,18 PO 01/30/18 18:00 01/31/18 18:38 (Lactulose Liq) 30 ml BID PO 01/31/18 09:00 01/31/18 21:38 Vancomycin HCl 1750 mg/Sodium Chloride 517.5 ml @ 257.5 mls/ hr Q18H IV 02/01/18 05:00 02/01/18 06:41 ([facility] Ordered Lab Info) SPECIFIC LAB TO BE DRAWN:VANCOMYCIN TROUGH DATE TO... ONCE ONCE .XX 02/03/18 10:45 02/03/18 10:46 A/P Problem List: (1) Sepsis ICD Code: A41.9 - Sepsis, unspecified organism Plan: Sepsis present on admission. Patient with tachycardia and worsening leukocytosis. Please note that the patient has a history of chronic leukocytosis but upon review of previous lab results this is worsened. Admit the patient to the medical floor IV fluids IV broad-spectrum antibiotics with IV vancomycin and IV Zosyn. Suspect sepsis likely secondary to spontaneous bacterial peritonitis versus possible developing pneumonia. Will treat as H CAP since patient has been recently hospitalized within the last 3 months. 01/30 Patient growing Staph aureus in blood culture 09/29 bottles. Repeat blood cultures, Consult ID. Continue IV antibiotics as above. 01/31 ID consulted, recommendations appreciated. Blood cultures pending. (2) Hepatic encephalopathy ICD Code: K72.90 - Hepatic failure, unspecified without coma Status: Acute Plan: Ammonia elevated at 60 on admission and patient sleepy on exam. Patient's lactulose continued however frequency increased to QID. 01/30 Ammonia Level down to less than 10. Patient more awake. Continue Lactulose. . (3) Cirrhosis with alcoholism ICD Code: K70.30 - Alcoholic cirrhosis of liver without ascites Status: Chronic Plan: Patient with severe ascites. We will order ultrasound-guided abdominal paracentesis and send fluid for analysis. Continue rifaximin, pentoxifylline, cholestyramine, hold the spironolactone, continue lactulose, continue prednisolone. 01/30 sp Abdominal paracentesis. Ascitic fluid analysis does not look infectious. (4) Leukocytosis ICD Code: D72.829 - Elevated white blood cell count, unspecified Plan: Patient has worsening leukocytosis. Upon review of records the patient has a baseline WBC count which is in the 20,000s. Patient has a WBC count of 27K. Monitor CBC with differential. 5/7 WBC even more elevated at 30.2K. Continue to monitor cbc w diff. 5/8 WBC trending down. (5) Hyperammonemia ICD Code: E72.20 - Disorder of urea cycle metabolism, unspecified Status: Resolved Plan: Continue lactulose monitor ammonia levels. (6) Dyspnea ICD Code: R06.00 - Dyspnea, unspecified Status: Acute Plan: Dyspnea could be related to developing possible infiltrates and also abdominal distention from ascites. supplemental o2 (7) End-stage liver disease ICD Code: K72.90 - Hepatic failure, unspecified without coma Plan: As above. Due to alcoholic cirrhosis. (8) Macrocytic anemia ICD Code: D53.9 - Nutritional anemia, unspecified Plan: Likely secondary to hepatic disease. Hemoglobin 9.4. Monitor CBC. (9) Coagulopathy ICD Code: D68.9 - Coagulation defect, unspecified Plan: Due to liver disease. Monitor INR. Will Rx Vitamin K. (10) Itching ICD Code: L29.9 - Pruritus, unspecified Status: Chronic Plan: Resume Atarax. Likely due to bile salts accumulation from increased bilirubin. Assessment and Plan DVT proph: DC Lovenox SQ due to recent paracentesis and concurrent coagulopathy. SCD's. Discharge Planning Pending repeat blood cultures. Pending ID clearance. Problem Qualifiers (1) Sepsis: Qualified Codes: A41.9 - Sepsis, unspecified organism (2) Cirrhosis with alcoholism: Qualified Codes: K70.31 - Alcoholic cirrhosis of liver with ascites (3) Leukocytosis: Qualified Codes: D72.829 - Elevated white blood cell count, unspecified (4) Dyspnea: Qualified Codes: R06.00 - Dyspnea, unspecified Mello Patel MD January 31, 2018 19:33
[2018-02-01] MEDS: PIPERACIL-TAZO 4.5 GM PREMIX 100 ML IV SCH ×3 (00:25→17:41)
[2018-02-01 03:58] VITALS: BP 126/78; PULSE 95; RESP 16; TEMP 98.1; O2SAT 98
[2018-02-01] MEDS: VANCOMYCIN INJ 1,750 MG in SODIUM CHLORID 0.9% 500 ML INJ 500 ML IV SCH (06:41)
[2018-02-01] MEDS: MIDODRINE 5 MG TAB PO SCH ×3 (06:41→17:41)
[2018-02-01] MEDS: SODIUM BICARBONATE 650 MG TAB PO SCH ×3 (06:41→22:00)
[2018-02-01] MEDS: RIFAXIMIN 200 MG TAB PO SCH ×2 (06:41→14:03)
[2018-02-01] MEDS: PENTOXIFYLLINE 400 MG CONTROLLED RELEASE TAB PO SCH ×2 (06:41→14:03)
[2018-02-01 07:10] VITALS: BP 130/81; PULSE 102; RESP 18; TEMP 98; O2SAT 100
[2018-02-01 08:53] LABS: AUTOMATED NEUTROPHIL # 20.6 TH/MM3 (1.8-7.7); BASOPHIL # 0.1 TH/MM3 (0-0.2); BASOPHIL % 0.2 % (0.0-2.0); EOSINOPHIL # 0.1 TH/MM3 (0-0.4); EOSINOPHIL % 0.2 % (0.0-4.0); HEMATOCRIT 33.7 % (39.0-51.0); HEMOGLOBIN 11.4 GM/DL (13.0-17.0); LYMPH % 33.6 % (9.0-44.0); LYMPHOCYTE # 11.6 TH/MM3 (1.0-4.8); MEAN CELL VOLUME 102.4 FL (80.0-100.0); MEAN CORPUSCULAR HEMOGLOBIN 34.7 PG (27.0-34.0); MEAN CORPUSCULAR HGB CONC 33.9 % (32.0-36.0); MEAN PLATELET VOLUME 8.7 FL (7.0-11.0); MONO % 6.2 % (0.0-8.0); MONOCYTE # 2.2 TH/MM3 (0-0.9); NEUT % 59.8 % (16.0-70.0); PLATELET COUNT 223 TH/MM3 (150-450); RED BLOOD COUNT 3.29 MIL/MM3 (4.50-5.90); RED CELL DISTRIBUTION WIDTH 16.1 % (11.6-17.2); WHITE BLOOD COUNT 34.5 TH/MM3 (4.0-11.0)
[2018-02-01] MEDS: CYANOCOBALAMIN 100 MCG TAB PO SCH (09:00)
[2018-02-01] MEDS: CHOLESTYRAMINE 4 GM PACKET PO SCH ×3 (09:05→17:40)
[2018-02-01] MEDS: LACTULOSE SYRUP 20 GM/30 ML CUP PO SCH (09:07)
[2018-02-01] MEDS: prednisoLONE 10 MG ODT TAB PO SCH (09:07)
[2018-02-01] MEDS: SODIUM CHLORIDE 0.9% FLUSH 10 ML FLUSH IV FLUSH SCH (09:08)
[2018-02-01] MEDS: DOCUSATE SODIUM 50 MG/SENNA 8.6 MG TAB PO SCH (09:08)
[2018-02-01] MEDS: CHOLECALCIFEROL (VIT D3) 1000 UNIT TAB PO SCH (09:08)
[2018-02-01] MEDS: POTASSIUM CHLORIDE 10 MEQ CAP PO SCH (09:08)
[2018-02-01] MEDS: FOLIC ACID 1 MG TAB PO SCH (09:08)
[2018-02-01] MEDS: SPIRONOLACTONE 25 MG TAB PO SCH ×2 (09:08→17:41)
[2018-02-01] MEDS: PANTOPRAZOLE SOD 40 MG DELAYED RELEASE TAB PO SCH (09:08)
[2018-02-01] MEDS: THIAMINE HCL 100 MG TAB PO SCH (09:08)
[2018-02-01 09:12] LABS: AST (GOT) 74 U/L (15-37); BICARBONATE 16.3 MEQ/L (21.0-32.0); BLOOD UREA NITROGEN 23 MG/DL (7-18); CALCIUM 9.1 MG/DL (8.5-10.1); CHLORIDE 105 MEQ/L (98-107); CREATININE 0.87 MG/DL (0.60-1.30); GLOMERULAR FILTRATION RATE 98 ML/MIN (>89); GLUCOSE,RANDOM 84 MG/DL (74-106); SODIUM (NA) 133 MEQ/L (136-145)
[2018-02-01 09:13] LABS: ALT (GPT) 99 U/L (12-78)
--- NOTE | 2018-02-01 09:13 | HHI.PR ---
Subjective Remarks The patient denies chest pain, shortness of breath Denies fevers or chills Denies abdominal pain, nausea vomiting. WBC noted to be trending up. Objective Vitals Vital Signs Date Time Temp Pulse Resp B/P (MAP) Pulse Ox O2 Delivery O2 Flow Rate FiO2 02/01/18 07:10 98.0 102 18 130/81 (97) 100 02/01/18 03:58 98.1 95 16 126/78 (94) 98 01/31/18 23:45 97.9 106 16 133/94 (107) 98 01/31/18 20:20 97.7 95 16 132/77 (95) 100 01/31/18 16:05 98.1 96 18 128/77 (94) 96 01/31/18 15:42 20 01/31/18 11:54 97.9 97 18 118/75 (89) 98 I/O 01/31/18 01/31/18 01/31/18 02/01/18 02/01/18 02/01/18 07:00 15:00 23:00 07:00 15:00 23:00 Intake Total 517.5 ml Balance 517.5 ml Intake IV Total 517.5 ml Result Diagram: 01/31/18 0620 01/31/18 1053 Imaging Last Impressions Cyst Biopsy Asp-Paracentesis US 01/30/18 0000 Signed Impressions: Service Date/Time: Monday, January 29, 2018 20:01 - CONCLUSION: Uncomplicated ultrasound guided paracentesis. Patient received albumin per protocol. The Roly Brantley MD FACR Chest X-Ray 01/29/18 0443 Signed Impressions: Service Date/Time: Monday, January 29, 2018 04:49 - CONCLUSION: Rotated film with possible developing pleural-parenchymal process Inderjit Ramirez MD CT Angiography 01/29/18 0000 Signed Impressions: Service Date/Time: Monday, January 29, 2018 08:25 - CONCLUSION: 1. No PE is identified. Additionally, no acute finding is identified within the chest. 2. Please refer to abdomen and pelvis CT report for description of the subdiaphragmatic findings. Inderjit Shields MD Abdomen/Pelvis CT 01/29/18 0000 Signed Impressions: Service Date/Time: Monday, January 29, 2018 08:25 - CONCLUSION: 1. The abdominal distention is caused by a moderate to a large volume of ascites related to the patient's chronic liver disease. 2. The liver demonstrates features indicative of cirrhosis. There are also findings indicative of portal hypertension including the collateral blood vessels and the ascites. Inderjit Shields MD Objective Remarks GENERAL: This is a well-nourished, well-developed patient, in mild pain distress. SKIN: No rashes, ecchymoses or lesions. Cool and dry. Significant jaundice. There are several sores all over the patient's body. The source look around and with a crusty scar over them. HEAD: Atraumatic. Normocephalic. No temporal or scalp tenderness. EYES: Pupils equal round and reactive. Extraocular motions intact. + scleral icterus. No injection or drainage. ENT: Nose without bleeding, purulent drainage or septal hematoma. Throat without erythema, tonsillar hypertrophy or exudate. Uvula midline. Airway patent. NECK: Trachea midline. No JVD or lymphadenopathy. Supple, nontender, no meningeal signs. CARDIOVASCULAR: Regular rate and rhythm without murmurs, gallops, or rubs. RESPIRATORY: Clear to auscultation. Breath sounds equal bilaterally. No wheezes , rales, or rhonchi. GASTROINTESTINAL: Abdomen soft, diffusely tender to palpation, distended with a positive ascitic fluid wave. No hepato-splenomegaly, or palpable masses. No guarding. MUSCULOSKELETAL: Extremities without clubbing, cyanosis, or edema. No joint tenderness, effusion, or edema noted. No calf tenderness. Negative Homans sign bilaterally. NEUROLOGICAL: Awake and alert. Cranial nerves II through XII intact. Motor and sensory grossly within normal limits. Five out of 5 muscle strength in all muscle groups. Normal speech. Procedures none A/P Problem List: (1) Sepsis ICD Code: A41.9 - Sepsis, unspecified organism (2) Hepatic encephalopathy ICD Code: K72.90 - Hepatic failure, unspecified without coma Status: Acute (3) Cirrhosis with alcoholism ICD Code: K70.30 - Alcoholic cirrhosis of liver without ascites Status: Chronic (4) Leukocytosis ICD Code: D72.829 - Elevated white blood cell count, unspecified (5) Hyperammonemia ICD Code: E72.20 - Disorder of urea cycle metabolism, unspecified Status: Resolved (6) Dyspnea ICD Code: R06.00 - Dyspnea, unspecified Status: Acute (7) End-stage liver disease ICD Code: K72.90 - Hepatic failure, unspecified without coma (8) Macrocytic anemia ICD Code: D53.9 - Nutritional anemia, unspecified (9) Coagulopathy ICD Code: D68.9 - Coagulation defect, unspecified (10) Itching ICD Code: L29.9 - Pruritus, unspecified Status: Chronic (11) Positive blood culture ICD Code: R78.81 - Bacteremia Plan: 1 out of 4 bottles growing MSSA. Repeat blood cultures negative 1. ID following. Continue IV broad-spectrum antibiotics as per ID recommendations. Assessment and Plan (1) Sepsis ICD Code: A41.9 - Sepsis, unspecified organism Plan: Sepsis present on admission. Patient with tachycardia and worsening leukocytosis. Please note that the patient has a history of chronic leukocytosis but upon review of previous lab results this is worsened. Admit the patient to the medical floor IV broad-spectrum antibiotics with IV vancomycin and IV Zosyn. Suspect sepsis likely secondary to spontaneous bacterial peritonitis versus possible developing pneumonia. Will treat as H CAP since patient has been recently hospitalized within the last 3 months. 01/30 Patient growing Staph aureus in blood culture 1/4 bottles. Repeat blood cultures, Consult ID. Continue IV antibiotics as above. 01/31 ID consulted, recommendations appreciated. Blood cultures pending. 5 01/02 blood cultures negative 1. (2) Hepatic encephalopathy Status: Acute Plan: Ammonia elevated at 60 on admission and patient sleepy on exam. Patient's lactulose continued however frequency increased to QID. 01/30 Ammonia Level down to less than 10. Patient more awake. Continue Lactulose. . (3) Cirrhosis with alcoholism Status: Chronic Plan: Patient with severe ascites. We will order ultrasound-guided abdominal paracentesis and send fluid for analysis. Continue rifaximin, pentoxifylline, cholestyramine, hold the spironolactone, continue lactulose, continue prednisolone. 01/30 sp Abdominal paracentesis. Ascitic fluid analysis does not look infectious. (4) Leukocytosis Plan: Patient has worsening leukocytosis. Upon review of records the patient has a baseline WBC count which is in the 20,000s. Patient has a WBC count of 27K. Monitor CBC with differential. 01/30 WBC even more elevated at 30.2K. Continue to monitor cbc w diff. 5/8 WBC trending down. 5/9 WBC initially trending down to 27.0, however now increased to 34.5K.? Leukemoid reaction due to steroid use. Consult hematology. Continue to monitor CBC with differential. The patient has no signs of infection, is a febrile and feeling good. (5) Hyperammonemia Plan: Continue lactulose monitor ammonia levels. (6) Dyspnea Plan: Dyspnea could be related to developing possible infiltrates and also abdominal distention from ascites. supplemental o2 (7) End-stage liver disease Plan: As above. Due to alcoholic cirrhosis. Upon review of records the patient's LFTs have been greater than previous times unstable. Bilirubin is elevated however when compared to previous admissions bilirubin is stable. (8) Macrocytic anemia ICD Code: D53.9 - Nutritional anemia, unspecified Plan: Likely secondary to hepatic disease. Hemoglobin 9.4. Monitor CBC. (9) Coagulopathy ICD Code: D68.9 - Coagulation defect, unspecified Plan: Due to liver disease. Monitor INR. Will Rx Vitamin K. (10) Itching ICD Code: L29.9 - Pruritus, unspecified Status: Chronic Plan: Continue Atarax. Likely due to bile salts accumulation from increased bilirubin. DVT proph: DC Lovenox SQ due to recent paracentesis and concurrent coagulopathy. SCD's. Discharge Planning Pending repeat blood cultures. Pending ID clearance. Problem Qualifiers (1) Sepsis: Qualified Codes: A41.9 - Sepsis, unspecified organism (2) Cirrhosis with alcoholism: Qualified Codes: K70.31 - Alcoholic cirrhosis of liver with ascites (3) Leukocytosis: Qualified Codes: D72.829 - Elevated white blood cell count, unspecified (4) Dyspnea: Qualified Codes: R06.00 - Dyspnea, unspecified Mello Patel MD February 01, 2018 09:13
[2018-02-01 09:15] LABS: ALKALINE PHOSPHATASE 295 U/L (45-117)
[2018-02-01 09:48] LABS: BANDS 2 % (0-6); LYMPHOCYTES 5 % (9-44); METAMYELOCYTES 2 % (0-1); MONOCYTES 10 % (0-8); POLYS (SEG NEUTROPHILS) 81 % (16-70)
[2018-02-01 09:52] LABS: NEUTROPHIL # MANUAL DIFF 29.3 TH/MM3 (1.8-7.7)
[2018-02-01] MEDS: SODIUM CHLOR 0.45% 1000 ML INJ 1,000 ML IV SCH ×2 (09:52→19:52)
[2018-02-01 11:01] VITALS: BP 132/82; PULSE 101; RESP 18; TEMP 97.5; O2SAT 100
[2018-02-01 11:51] LABS: PROTHROMBIN TIME - PATIENT 19.9 SEC (9.8-11.6)
[2018-02-01 15:41] VITALS: BP 117/86; PULSE 101; RESP 18; TEMP 98.3; O2SAT 100
[2018-02-01] MEDS: hydrOXYzine HCL 50 MG TAB PO PRN (16:11)
[2018-02-01 20:56] VITALS: BP 134/97; PULSE 107; RESP 20; TEMP 97.5; O2SAT 100
[2018-02-02] VITALS (10 sets, daily range): BP systolic 132–144; BP diastolic 69–102; PULSE 63–107; RESP 16–19; TEMP 97.5–98.9; O2SAT 96–100
[2018-02-02] MEDS: PIPERACIL-TAZO 4.5 GM PREMIX 100 ML IV SCH ×2 (00:16→09:32)
[2018-02-02] MEDS: VANCOMYCIN INJ 1,750 MG in SODIUM CHLORID 0.9% 500 ML INJ 500 ML IV SCH (00:16)
[2018-02-02] MEDS: hydrOXYzine HCL 50 MG TAB PO PRN ×3 (00:59→21:20)
[2018-02-02] MEDS: SODIUM CHLORIDE 0.9% FLUSH 10 ML FLUSH IV FLUSH SCH ×3 (01:00→21:00)
[2018-02-02] MEDS: POTASSIUM CHLORIDE 10 MEQ CAP PO SCH ×3 (01:00→21:20)
[2018-02-02] MEDS: DOCUSATE SODIUM 50 MG/SENNA 8.6 MG TAB PO SCH ×3 (01:01→21:20)
[2018-02-02] MEDS: LACTULOSE SYRUP 20 GM/30 ML CUP PO SCH ×3 (01:01→21:19)
[2018-02-02] MEDS: PENTOXIFYLLINE 400 MG CONTROLLED RELEASE TAB PO SCH ×4 (01:01→21:20)
[2018-02-02] MEDS: RIFAXIMIN 200 MG TAB PO SCH ×4 (01:01→21:19)
[2018-02-02 05:30] LABS: INTERNATIONAL NORMALIZED RATIO 1.7 RATIO
[2018-02-02 05:33] LABS: AUTOMATED NEUTROPHIL # 28.2 TH/MM3 (1.8-7.7); BASOPHIL % 0.1 % (0.0-2.0); EOSINOPHIL # 0.1 TH/MM3 (0-0.4); EOSINOPHIL % 0.4 % (0.0-4.0); HEMATOCRIT 34.8 % (39.0-51.0); HEMOGLOBIN 11.9 GM/DL (13.0-17.0); LYMPH % 5.1 % (9.0-44.0); LYMPHOCYTE # 1.6 TH/MM3 (1.0-4.8); MEAN CELL VOLUME 101.2 FL (80.0-100.0); MEAN CORPUSCULAR HEMOGLOBIN 34.6 PG (27.0-34.0); MEAN CORPUSCULAR HGB CONC 34.2 % (32.0-36.0); MONOCYTE # 2.2 TH/MM3 (0-0.9); NEUT % 87.4 % (16.0-70.0); PLATELET COUNT 209 TH/MM3 (150-450); RED BLOOD COUNT 3.44 MIL/MM3 (4.50-5.90); RED CELL DISTRIBUTION WIDTH 16.1 % (11.6-17.2); WHITE BLOOD COUNT 32.3 TH/MM3 (4.0-11.0)
[2018-02-02 05:51] LABS: AST (GOT) 70 U/L (15-37); BICARBONATE 17.4 MEQ/L (21.0-32.0); BLOOD UREA NITROGEN 19 MG/DL (7-18); CALCIUM 8.6 MG/DL (8.5-10.1); CHLORIDE 106 MEQ/L (98-107); GLOMERULAR FILTRATION RATE 108 ML/MIN (>89); GLUCOSE,RANDOM 79 MG/DL (74-106); SODIUM (NA) 134 MEQ/L (136-145)
[2018-02-02] MEDS: SODIUM CHLOR 0.45% 1000 ML INJ 1,000 ML IV SCH (05:52)
[2018-02-02 05:55] LABS: ALKALINE PHOSPHATASE 286 U/L (45-117); ALT (GPT) 103 U/L (12-78); TOTAL BILIRUBIN ADULT 15.7 MG/DL (0.2-1.0); TOTAL PROTEIN 6.2 GM/DL (6.4-8.2)
[2018-02-02] MEDS: SODIUM BICARBONATE 650 MG TAB PO SCH ×3 (06:29→21:19)
[2018-02-02] MEDS: MIDODRINE 5 MG TAB PO SCH ×3 (06:29→17:00)
[2018-02-02 07:44] LABS: BANDS 3 % (0-6); LYMPHOCYTES 1 % (9-44); METAMYELOCYTES 1 % (0-1); MONOCYTES 5 % (0-8); NEUTROPHIL # MANUAL DIFF 30.4 TH/MM3 (1.8-7.7); POLYS (SEG NEUTROPHILS) 90 % (16-70)
[2018-02-02 07:47] LABS: TARGET CELLS 1+ (NORMAL)
[2018-02-02 07:48] LABS: BURR CELLS 1+ (NORMAL)
[2018-02-02] MEDS: CYANOCOBALAMIN 100 MCG TAB PO SCH (09:00)
[2018-02-02] MEDS: SPIRONOLACTONE 25 MG TAB PO SCH ×2 (09:33→18:10)
[2018-02-02] MEDS: THIAMINE HCL 100 MG TAB PO SCH (09:33)
[2018-02-02] MEDS: CHOLESTYRAMINE 4 GM PACKET PO SCH ×3 (09:33→17:00)
[2018-02-02] MEDS: CHOLECALCIFEROL (VIT D3) 1000 UNIT TAB PO SCH (09:33)
[2018-02-02] MEDS: FOLIC ACID 1 MG TAB PO SCH (09:34)
[2018-02-02] MEDS: PANTOPRAZOLE SOD 40 MG DELAYED RELEASE TAB PO SCH (09:34)
--- NOTE | 2018-02-02 13:05 | HHI.IDPN ---
Note Infectious Disease Note Patient is sleepy. States that he feels okay. Denies fever, chills or sweats or abdominal pain. Repeat blood cultures negative at 48 hours. The white blood cell count remained elevated. 37-year-old white male who has history of liver cirrhosis. The patient has had multiple paracentesis procedures for reaccumulation of ascites fluid. He is followed by gastroenterology. He reports that he was doing well since his last hospitalization last month. He presented to the Emergency Department because of respiratory symptoms with increasing abdominal girth and shortness of breath. His mother reports that he was having difficulty breathing and he had to be sitting upright and leaning forward in order to get his air. PAST MEDICAL HISTORY: End-stage liver disease, hepatorenal syndrome, alcohol abuse (patient notes that he has not had a drink in 6 months). ALLERGIES: NO KNOWN DRUG ALLERGIES. MEDICATIONS: Medications (Trade) Dose Ordered Sig/Virgil Route PRN Reason Start Time Stop Time Status Last Admin Dose Admin Pharmacy Profile Note 0 ml @ 0 mls/hr UNSCH OTHER 01/29/18 09:15 Sodium Chloride 1,000 ml @ 100 mls/hr Q10H IV 01/29/18 09:47 01/30/18 11:57 Sodium Chloride (NS Flush) 2 ml UNSCH PRN IV FLUSH FLUSH AFTER USING IV ACCESS 01/29/18 10:00 Sodium Chloride (NS Flush) 2 ml BID IV FLUSH 01/29/18 21:00 02/02/18 09:35 Acetaminophen (Tylenol) 650 mg Q4H PRN PO TEMP > 100.4 01/29/18 10:00 Ondansetron HCl (Zofran Inj) 4 mg Q6H PRN IVP NAUSEA OR VOMITING 01/29/18 10:00 Naloxone HCl (Narcan Inj) 0.4 mg UNSCH PRN IV PUSH SEE LABEL COMMENTS 01/29/18 10:00 Senna/Docusate Sodium (Katie-Colace) 1 tab BID PO 01/29/18 21:00 02/02/18 09:34 Piperacillin Sod/ Tazobactam Sod 100 ml @ 200 mls/hr Q8H IV 01/29/18 16:00 02/02/18 09:32 Cholecalciferol (Vitamin D3) 1,000 units DAILY PO 01/30/18 09:00 02/02/18 09:33 Cholestyramine Resin (Questran 4 Gm Pkt) 4 gm TIDAC PO 01/30/18 08:00 02/02/18 09:33 Cyanocobalamin (Vitamin B12) 100 mcg DAILY PO 01/30/18 09:00 02/01/18 09:00 Folic Acid (Folate) 1 mg DAILY PO 01/30/18 09:00 02/02/18 09:34 Midodrine (Proamatine) 2.5 mg TID@ PO 01/30/18 07:00 02/02/18 06:29 Pantoprazole Sodium (Protonix) 40 mg DAILY PO 01/30/18 09:00 02/02/18 09:34 Pentoxifylline (TRENtal SR) 400 mg Q8H PO 01/29/18 22:00 02/02/18 06:29 Prednisolone (Orapred Odt) 40 mg DAILY PO 01/30/18 09:00 02/01/18 09:07 Rifaximin (Xifaxan) 400 mg Q8HR PO 01/29/18 22:00 02/02/18 06:29 Sodium Bicarbonate (Sodium Bicarbonate) 650 mg Q8HR PO 01/29/18 22:00 02/02/18 06:29 Thiamine HCl (Vitamin B1) 100 mg DAILY PO 01/30/18 09:00 02/02/18 09:33 Miscellaneous (Pill Splitter) 1 ea UNSCH PRN OTHER SEE LABEL COMMENTS 01/29/18 19:15 Hydroxyzine HCl (Atarax) 50 mg Q6H PRN PO itching 01/30/18 16:00 02/02/18 06:29 Oxycodone HCl (Roxicodone) 5 mg Q4H PRN PO PAIN SCALE 4 TO 10 01/30/18 16:00 02/02/18 06:29 Potassium Chloride (KCl) 20 meq BID PO 01/30/18 21:00 02/02/18 09:34 Spironolactone (Aldactone) 25 mg BID@09,18 PO 01/30/18 18:00 02/02/18 09:33 Lactulose (Lactulose Liq) 30 ml BID PO 01/31/18 09:00 02/02/18 09:33 Vancomycin HCl 1750 mg/Sodium Chloride 517.5 ml @ 257.5 mls/ hr Q18H IV 02/01/18 05:00 02/02/18 00:16 Miscellaneous Information ([facility] Ordered Lab Info) SPECIFIC LAB TO BE DRAWN:VANCOMYCIN TROUGH DATE TO... ONCE ONCE .XX 02/03/18 10:45 02/03/18 10:46 Objective: Vital Signs Date Time Temp Pulse Resp B/P (MAP) Pulse Ox O2 Delivery O2 Flow Rate FiO2 02/02/18 08:00 97.8 98 16 136/87 (103) 100 02/02/18 04:00 97.9 100 19 132/82 (99) 100 02/02/18 04:00 Room Air 02/02/18 04:00 99 02/02/18 00:11 100 02/02/18 00:00 Room Air 02/02/18 00:00 97.7 100 18 144/89 (107) 97 02/01/18 20:56 97.5 107 20 134/97 (109) 100 02/01/18 20:40 Room Air 02/01/18 17:41 20 02/01/18 15:41 98.3 101 18 117/86 (96) 100 Laboratory Tests Test 02/01/18 08:17 02/02/18 04:59 White Blood Count 34.5 TH/MM3 32.3 TH/MM3 Red Blood Count 3.29 MIL/MM3 3.44 MIL/MM3 Hemoglobin 11.4 GM/DL 11.9 GM/DL Hematocrit 33.7 % 34.8 % Mean Corpuscular Volume 102.4 FL 101.2 FL Mean Corpuscular Hemoglobin 34.7 PG 34.6 PG Mean Corpuscular Hemoglobin Concent 33.9 % 34.2 % Red Cell Distribution Width 16.1 % 16.1 % Platelet Count 223 TH/MM3 209 TH/MM3 Mean Platelet Volume 8.7 FL 9.0 FL Neutrophils (%) (Auto) 59.8 % 87.4 % Lymphocytes (%) (Auto) 33.6 % 5.1 % Monocytes (%) (Auto) 6.2 % 7.0 % Eosinophils (%) (Auto) 0.2 % 0.4 % Basophils (%) (Auto) 0.2 % 0.1 % Neutrophils # (Auto) 20.6 TH/MM3 28.2 TH/MM3 Lymphocytes # (Auto) 11.6 TH/MM3 1.6 TH/MM3 Monocytes # (Auto) 2.2 TH/MM3 2.2 TH/MM3 Eosinophils # (Auto) 0.1 TH/MM3 0.1 TH/MM3 Basophils # (Auto) 0.1 TH/MM3 0.0 TH/MM3 CBC Comment AUTO DIFF AUTO DIFF Differential Total Cells Counted 100 100 Neutrophils % (Manual) 81 % 90 % Band Neutrophils % 2 % 3 % Lymphocytes % 5 % 1 % Monocytes % 10 % 5 % Neutrophils # (Manual) 29.3 TH/MM3 30.4 TH/MM3 Metamyelocytes 2 % 1 % Differential Comment FINAL DIFF MANUAL FINAL DIFF MANUAL Platelet Estimate NORMAL NORMAL Platelet Morphology Comment NORMAL NORMAL Red Cell Morphology Comment Target Cells 1+ Jordan Cells 1+ Laboratory Tests Test 02/01/18 08:17 02/02/18 04:59 Blood Urea Nitrogen 23 MG/DL 19 MG/DL Creatinine 0.87 MG/DL 0.80 MG/DL Random Glucose 84 MG/DL 79 MG/DL Total Protein 6.0 GM/DL 6.2 GM/DL Albumin 2.0 GM/DL 2.0 GM/DL Calcium Level 9.1 MG/DL 8.6 MG/DL Alkaline Phosphatase 295 U/L 286 U/L Aspartate Amino Transf (AST/SGOT) 74 U/L 70 U/L Alanine Aminotransferase (ALT/SGPT) 99 U/L 103 U/L Total Bilirubin 16.0 MG/DL 15.7 MG/DL Sodium Level 133 MEQ/L 134 MEQ/L Potassium Level 4.2 MEQ/L 4.0 MEQ/L Chloride Level 105 MEQ/L 106 MEQ/L Carbon Dioxide Level 16.3 MEQ/L 17.4 MEQ/L Anion Gap 12 MEQ/L 11 MEQ/L Estimat Glomerular Filtration Rate 98 ML/MIN 108 ML/MIN Microbiology Date/Time Source Procedure Growth Status 01/31/18 06:15 Blood Peripheral Aerobic Blood Culture - Preliminary NO GROWTH IN 2 DAYS Resulted 01/31/18 06:15 Blood Peripheral Anaerobic Blood Culture - Preliminary NO GROWTH IN 2 DAYS Resulted 01/31/18 06:15 Blood Peripheral Aerobic Blood Culture - Preliminary NO GROWTH IN 2 DAYS Resulted 01/31/18 06:15 Blood Peripheral Anaerobic Blood Culture - Preliminary NO GROWTH IN 2 DAYS Resulted PHYSICAL EXAMINATION: GENERAL: Somnolent. Easily arousable. HEENT: Head atraumatic. Extraocular movements grossly intact. Positive icterus. Oropharynx, slightly dry mucosa without lesions. NECK: Supple without adenopathy. LUNGS: Clear breath sounds. HEART: Regular S1 and S2, without murmurs. ABDOMEN: Obese, soft, no tenderness appreciated. Decreased bowel sounds. EXTREMITIES: No clubbing, cyanosis or edema. Diffuse excoriated lesions on the arms, legs and abdomen. These are tiny round, dry lesions. SKIN: Jaundice. No diffuse rash. NEUROLOGIC: No gross focal finding. PSYCHIATRIC: Calm and cooperative. IMPRESSION: 1. Staphylococcus aureus bacteremia, questionable source. Possible related to spontaneous bacterial peritonitis. However, the fluid from the ascites was clear and the white count is unremarkable. The repeat blood culture is negative at 48 hours. 2. Leukocytosis, probably secondary to infection. He does have underlying leukocytosis, but the white count is higher than previous. 3. Abnormal chest x-ray per the chest x-ray report on 01/29. However, he has no cough or sputum production to suggest pneumonia. 4. Alcoholic cirrhosis, with recurrent ascites. RECOMMENDATIONS: 1. Stop vancomycin. 2. Stop piperacillin/tazobactam. 3. Dose of ceftriaxone IV today and then give p.o. Keflex for 5 days if the blood cultures negative. 4. Give a short course of p.o. Flagyl for 5 days. Empiric treatment for anaerobic coverage. 5. Monitor the white blood cell count. 6. Monitor clinical status. Cj Kaplan MD February 02, 2018 13:05
[2018-02-02] MEDS: prednisoLONE 10 MG ODT TAB PO SCH (13:29)
[2018-02-02] MEDS ORDERED: cefTRIAXone INJ 2,000 MG in SODIUM CHLORIDE 0.9% INJ 100 ML IV SCH (14:00)
--- NOTE | 2018-02-02 14:27 | MB ---
cc: Carmenza Gutierrez MD, Rolando MD DATE: 02/02/2018 REFERRING PHYSICIAN: Dr. Mello Rodriguez. CHIEF COMPLAINT: Dr. Thien Rodriguez requested consultation for Mr. العلي regarding a persistent leukocytosis in a patient with underlying liver cirrhosis. HISTORY OF PRESENT ILLNESS: Mr. العلي is a 37-year-old man, well known patient from previous consultation. He was initially seen in consultation 11/12/2017. At that time, he presented to [facility] with a liver lesion and associated hyperbilirubinemia. He was ultimately diagnosed with alcoholic liver disease. His second admission came in 11/2017. He was seen in consultation 12/12/2017. He had associated leukocytosis from his liver disease. At that time, he had anasarca, lower extremity pitting edema and a possibility of infectious etiology. Peripheral smear shows a reactive process. Further evaluation of bone marrow biopsy was deferred. Mr. العلي has been referred to bone marrow transplant evaluation. He is in the process of making an appointment at the [facility] in [place]. He was readmitted to the hospital on 01/29/2018. He was seen by Dr. Linda De La Vega with respiratory symptoms. He had worsening abdominal girth and shortness of breath. He had undergone paracentesis 2 weeks ago. He is on antibiotic therapy. He was admitted and cultures were obtained. Initial culture from 01/29/2018 showed Staphylococcus aureus. He had associated leukocytosis with a white blood cell count of 27,000. Infectious disease is consulted. He is on antibiotic therapy. He also has a mild macrocytic anemia. His platelet count is normal. Hematology/Oncology is consulted for the elevated white blood cell count and anemia. Mr. العلي is feeling tired today. He is apparently very relieved to have the opportunity to go to [facility]. He is pending insurance verification. His leg swelling has significantly improved. He has excellent family support with a mother at bedside. PAST MEDICAL HISTORY: 1. Painless jaundice. 2. Alcoholic liver disease. 3. Chronic macrocytic anemia 4. Chronic leukocytosis. 5. Anasarca. 6. Hypoalbuminemia. PAST SURGICAL HISTORY: Paracentesis. SOCIAL HISTORY: He lives with his family. He was heavy drinker and now has abstained. He smoked previously. FAMILY HISTORY: Mother of gynecologic metastatic cancer. Both parents are alive. ALLERGIES: NO KNOWN DRUG ALLERGIES. CURRENT MEDICATIONS: 1. Flagyl. 2. Ceftriaxone. 3. Lactulose. 4. Potassium chloride. 5. Spironolactone. 6. Atarax. 7. Vitamin D3. 8. Roxicodone. 9. Vitamin B12. 10. Protonix. 11. Folic acid. 12. Prednisolone. 13. Vitamin B1. 14. Questran. 15. Pentoxifylline. 16. Rifaximin. 17. Katie-Colace. PHYSICAL EXAMINATION: VITAL SIGNS: Temperature 97.8, heart rate 98, respiratory rate 16, blood pressure 136/87, saturation 100%. GENERAL: Mr. العلي is a well-developed tired appearing man, who is resting. HEENT: He is overtly jaundiced. Pupils are round and reactive. Oropharynx is clear. NECK: Supple. LUNGS: Clear anteriorly. HEART: Reveals mild tachycardia. ABDOMEN: Soft, distended, striae. There is a bag collecting ascitic fluid that is draining in the right upper quadrant. EXTREMITIES: No edema. LABORATORY DATA: Significant for a white count of 32,000; predominantly neutrophils; hemoglobin 11.9, MCV 101.2, platelet count of 209. ASSESSMENT AND PLAN: Mr. العلي is a 37-year-old man with alcoholic liver disease. He presented with alcoholic hepatitis. He is abstaining. He is in the process of being evaluated by bone marrow transplant at the [facility]. His bilirubin is around 15. His liver function continues to be elevated. He has overt signs of liver disease. He appears to be compensated at present. His anasarca and swelling is improved. Hematology-oncology is consulted for the leukocytosis. The case was discussed with Mr. العلي and his parents present at the consultation. They actually have an appointment with me tomorrow on outpatient basis. We discussed plans to evaluate the etiology of the leukocytosis. Risks and benefit of bone marrow biopsy evaluation by interventional radiology was discussed. We will proceed with bone marrow biopsy if he is still here. Otherwise, we will coordinate on an outpatient basis. May be important for us to confirm that there is no underlying bone marrow pathology as he is undergoing evaluation by transplant. Nutritional deficiency seems less likely. He is receiving supplementation, folic acid, B12, vitamin D3. Evaluation for B12 deficiency in the past was negative. It is difficult to discern his actual B12 stores as his serum B12 level is high. Alpha fetoprotein, CEA, CA 19.9 are all negative. Vitamin D level was low and he is continuing replacement. His questions were answered to his satisfaction. Further recommendation regarding his bone marrow condition pending on the biopsy results. No specific therapy is required at present for the leukocytosis. We discussed that drug effect has not been excluded. He is on steroids. Furthermore, he has 1 out of 2 bottles of blood culture that was positive. Infectious etiologies being covered. Infectious disease is on board. MD MAKEDA Moreira/PANCHO , 01:47 PM , 02:26 PM
[2018-02-02] MEDS: metroNIDAZOLE 500 MG TAB PO SCH ×2 (15:26→21:19)
--- NOTE | 2018-02-02 16:00 | HHI.PR ---
Subjective Remarks Patient reports he ia feeling OK. He wants to go home. His mother in the room reports she is not eating much, patient denies this. Objective Vitals Vital Signs Date Time Temp Pulse Resp B/P (MAP) Pulse Ox O2 Delivery O2 Flow Rate FiO2 02/02/18 12:00 97.6 101 18 137/102 (114) 99 02/02/18 08:00 97.8 98 16 136/87 (103) 100 02/02/18 04:00 97.9 100 19 132/82 (99) 100 02/02/18 04:00 Room Air 02/02/18 04:00 99 02/02/18 00:11 100 02/02/18 00:00 Room Air 02/02/18 00:00 97.7 100 18 144/89 (107) 97 02/01/18 20:56 97.5 107 20 134/97 (109) 100 02/01/18 20:40 Room Air 02/01/18 17:41 20 I/O 02/01/18 02/01/18 02/01/18 02/02/18 02/02/18 02/02/18 07:00 15:00 23:00 07:00 15:00 23:00 Intake Total 322 ml Output Total 300 ml Balance 22 ml Intake Oral 222 ml IV Total 100 ml Output Urine Total 300 ml # Bowel Movements 0 Result Diagram: 02/02/18 0459 02/02/18 0459 Objective Remarks GENERAL: Jaundiced. No acute distress. CARDIOVASCULAR: Regular rate and rhythm without murmurs, gallops, or rubs. RESPIRATORY: Clear to auscultation. Breath sounds equal bilaterally. No wheezes , rales, or rhonchi. GASTROINTESTINAL: Abdomen is distended. Mild diffuse discomfort to palpation. NEUROLOGICAL: Awake and alert. Procedures none A/P Problem List: (1) Sepsis ICD Code: A41.9 - Sepsis, unspecified organism (2) Hepatic encephalopathy ICD Code: K72.90 - Hepatic failure, unspecified without coma Status: Acute (3) Cirrhosis with alcoholism ICD Code: K70.30 - Alcoholic cirrhosis of liver without ascites Status: Chronic (4) Leukocytosis ICD Code: D72.829 - Elevated white blood cell count, unspecified (5) Hyperammonemia ICD Code: E72.20 - Disorder of urea cycle metabolism, unspecified Status: Resolved (6) Dyspnea ICD Code: R06.00 - Dyspnea, unspecified Status: Acute (7) End-stage liver disease ICD Code: K72.90 - Hepatic failure, unspecified without coma (8) Macrocytic anemia ICD Code: D53.9 - Nutritional anemia, unspecified (9) Coagulopathy ICD Code: D68.9 - Coagulation defect, unspecified (10) Itching ICD Code: L29.9 - Pruritus, unspecified Status: Chronic (11) Positive blood culture ICD Code: R78.81 - Bacteremia Assessment and Plan Sepsis/Bacteremia Sepsis present on admission. Patient with tachycardia and worsening leukocytosis. IV broad-spectrum antibiotics with IV vancomycin and IV Zosyn. Patient growing Staph aureus in blood culture 1/4 bottles. Repeat blood cultures. ID following Bacteremia 1 out of 4 bottles growing MSSA. Repeat blood cultures negative 2. ID following. Continue IV broad-spectrum antibiotics as per ID recommendations. Hepatic encephalopathy Ammonia elevated at 60 on admission and patient sleepy on exam. Patient's lactulose continued however frequency increased to QID. Cirrhosis with alcoholism Patient with severe ascites. s/pl paracentesis, ascites fluid so far neg Continue rifaximin, pentoxifylline, cholestyramine, hold the spironolactone, continue lactulose, continue prednisolone. Leukocytosis Patient has worsening leukocytosis. Hematology consulted. Continue to monitor CBC with differential. The patient has no signs of infection End-stage liver disease Due to alcoholic cirrhosis. GI following Macrocytic anemia Likely secondary to hepatic disease. Monitor CBC. Itching Continue Atarax. Likely due to bile salts accumulation from increased bilirubin. DVT proph: SCD's. Discharge Planning Continue current treatment. Follow cultures. Appreciate recs from consultants. Problem Qualifiers (1) Sepsis: Qualified Codes: A41.9 - Sepsis, unspecified organism (2) Cirrhosis with alcoholism: Qualified Codes: K70.31 - Alcoholic cirrhosis of liver with ascites (3) Leukocytosis: Qualified Codes: D72.829 - Elevated white blood cell count, unspecified (4) Dyspnea: Qualified Codes: R06.00 - Dyspnea, unspecified She Baig MD February 02, 2018 16:00
[2018-02-03] VITALS (7 sets, daily range): BP systolic 133–156; BP diastolic 79–105; PULSE 95–121; RESP 18; TEMP 97.4–98.6; O2SAT 99–100
[2018-02-03] MEDS: SODIUM CHLOR 0.45% 1000 ML INJ 1,000 ML IV SCH (01:52)
[2018-02-03] MEDS: SODIUM BICARBONATE 650 MG TAB PO SCH (05:33)
[2018-02-03] MEDS: metroNIDAZOLE 500 MG TAB PO SCH (05:33)
[2018-02-03] MEDS: PENTOXIFYLLINE 400 MG CONTROLLED RELEASE TAB PO SCH (05:33)
[2018-02-03] MEDS: MIDODRINE 5 MG TAB PO SCH (05:33)
[2018-02-03] MEDS: RIFAXIMIN 200 MG TAB PO SCH (05:33)
[2018-02-03] MEDS ORDERED: PHARMACY ORDERED LAB ONE (10:45)
[2018-02-03 11:11] LABS: HEMATOCRIT 35.5 % (39.0-51.0); HEMOGLOBIN 12.1 GM/DL (13.0-17.0); MEAN CELL VOLUME 102.3 FL (80.0-100.0); MEAN CORPUSCULAR HEMOGLOBIN 34.8 PG (27.0-34.0); MEAN PLATELET VOLUME 8.9 FL (7.0-11.0); PLATELET COUNT 259 TH/MM3 (150-450); RED BLOOD COUNT 3.47 MIL/MM3 (4.50-5.90); RED CELL DISTRIBUTION WIDTH 16.5 % (11.6-17.2)
--- NOTE | 2018-02-03 11:11 | PD.ONC.PN ---
Subjective Subjective Remarks Afebrile overnight. Patient lying in bed waiting to go down for bone marrow biopsy. mother at bedside. No complaints. Objective Data Date Time Temp Pulse Resp B/P (MAP) Pulse Ox O2 Delivery O2 Flow Rate FiO2 02/03/18 08:00 105 02/03/18 08:00 97.8 108 18 140/85 (103) 100 02/03/18 04:00 98.5 99 18 156/79 (104) 100 02/03/18 00:00 98.6 119 18 146/105 (119) 99 02/03/18 00:00 Room Air 02/03/18 00:00 121 02/02/18 20:09 105 02/02/18 20:00 Room Air 02/02/18 20:00 97.5 99 18 137/98 (111) 99 02/02/18 16:05 107 02/02/18 16:00 97.7 101 16 137/96 (110) 100 02/02/18 12:00 97.6 101 18 137/102 (114) 99 02/03/18 02/03/18 02/03/18 06:59 14:59 22:59 Intake Total 462 ml Balance 462 ml Result Diagram: 02/02/18 0459 02/02/18 0459 Administered Medications Medications (Trade) Dose Ordered Sig/Virgil Route PRN Reason Start Time Stop Time Status Last Admin Dose Admin Sodium Chloride 1,000 ml @ 100 mls/hr Q10H IV 01/29/18 09:47 01/30/18 11:57 Sodium Chloride (NS Flush) 2 ml BID IV FLUSH 01/29/18 21:00 02/02/18 21:00 Senna/Docusate Sodium (Katie-Colace) 1 tab BID PO 01/29/18 21:00 02/02/18 21:20 Cholecalciferol (Vitamin D3) 1,000 units DAILY PO 01/30/18 09:00 02/02/18 09:33 Cholestyramine Resin (Questran 4 Gm Pkt) 4 gm TIDAC PO 01/30/18 08:00 02/02/18 17:00 Cyanocobalamin (Vitamin B12) 100 mcg DAILY PO 01/30/18 09:00 02/02/18 09:00 Folic Acid (Folate) 1 mg DAILY PO 01/30/18 09:00 02/02/18 09:34 Midodrine (Proamatine) 2.5 mg TID@07,12,17 PO 01/30/18 07:00 02/02/18 06:29 Pantoprazole Sodium (Protonix) 40 mg DAILY PO 01/30/18 09:00 02/02/18 09:34 Pentoxifylline (TRENtal SR) 400 mg Q8H PO 01/29/18 22:00 02/02/18 21:20 Prednisolone (Orapred Odt) 40 mg DAILY PO 01/30/18 09:00 02/02/18 13:29 Rifaximin (Xifaxan) 400 mg Q8HR PO 01/29/18 22:00 02/02/18 21:19 Sodium Bicarbonate (Sodium Bicarbonate) 650 mg Q8HR PO 01/29/18 22:00 02/02/18 21:19 Thiamine HCl (Vitamin B1) 100 mg DAILY PO 01/30/18 09:00 02/02/18 09:33 Hydroxyzine HCl (Atarax) 50 mg Q6H PRN PO itching 01/30/18 16:00 02/02/18 21:20 Oxycodone HCl (Roxicodone) 5 mg Q4H PRN PO PAIN SCALE 4 TO 10 01/30/18 16:00 02/02/18 18:10 Potassium Chloride (KCl) 20 meq BID PO 01/30/18 21:00 02/02/18 21:20 Spironolactone (Aldactone) 25 mg BID@,18 PO 01/30/18 18:00 02/02/18 18:10 Lactulose (Lactulose Liq) 30 ml BID PO 01/31/18 09:00 02/02/18 21:19 Metronidazole (Flagyl) 500 mg Q8HR PO 02/02/18 14:00 02/02/18 21:19 Ceftriaxone Sodium 2000 mg/ Sodium Chloride 100 ml @ 200 mls/hr Q24H IV 02/02/18 14:00 02/02/18 15:27 Objective Remarks GENERAL: Severely jaundiced male, lying supine in bed. SKIN: Warm and dry. HEAD: Normocephalic. EYES: No scleral icterus. No injection or drainage. NECK: Supple, trachea midline. CARDIOVASCULAR: Regular rate and rhythm RESPIRATORY: Breath sounds equal bilaterally. No accessory muscle use. GASTROINTESTINAL: Abdomen distended. EXTREMITIES: No cyanosis NEUROLOGICAL: awake and alert. normal speech. Assessment/Plan Problem List: (1) Leukocytosis ICD Codes: D72.829 - Elevated white blood cell count, unspecified Plan: --invasive radiology consulted for bone marrow biopsy --continue vitamin supplements. --no specific therapy required at present for leukocytosis. --unclear etiology, ?drug effect, ?steroids, ?reactive (1/2 BC ++) (2) Cirrhosis with alcoholism ICD Codes: K70.30 - Alcoholic cirrhosis of liver without ascites Status: Chronic Assessment 37y/o male with persistent leukocytosis in a patient with underlying liver cirrhosis. Plan 1. monitor CBC 2. await bone marrow biopsy. Attending Statement Agree with above. FU as out pt for BM bx results. Problem Qualifiers (1) Leukocytosis: Qualified Codes: D72.829 - Elevated white blood cell count, unspecified (2) Cirrhosis with alcoholism: Qualified Codes: K70.31 - Alcoholic cirrhosis of liver with ascites Silvina Underwood February 03, 2018 11:10 Carmenza Gutierrez MD February 03, 2018 18:34
[2018-02-03] MEDS ORDERED: METR-1 PO (11:16)
[2018-02-03] MEDS ORDERED: LACT10SO PO (11:16)
[2018-02-03] MEDS ORDERED: CEPH-460 PO (11:17)
--- NOTE | 2018-02-03 11:18 | HHI.DCPOC ---
Discharge Care Plan Diagnosis: (1) Positive blood culture (2) Portal hypertension (3) End-stage liver disease (4) Hepatic encephalopathy (5) Leukocytosis (6) Cirrhosis with alcoholism Goals to Promote Your Health * To prevent worsening of your condition and complications * To maintain your health at the optimal level Directions to Meet Your Goals Take your medications as prescribed Follow your dietary instruction Follow activity as directed Keep your appointments as scheduled Take your immunizations and boosters as scheduled If your symptoms worsen call your PCP, if no PCP go to Urgent Care Center or Emergency Room Smoking is Dangerous to Your Health. Avoid second hand smoke Call the 24-hour hour crisis hotline for domestic abuse at She Baig MD February 03, 2018 11:18
--- NOTE | 2018-02-03 11:19 | HHI.DS ---
Discharge Summary Admission Date January 29, 2018 at 18:56 Discharge Date: February 03, 2018 Admitting Diagnosis Pneumonia (1) Sepsis ICD Code: A41.9 - Sepsis, unspecified organism (2) Hepatic encephalopathy ICD Code: K72.90 - Hepatic failure, unspecified without coma Status: Acute (3) Cirrhosis with alcoholism ICD Code: K70.30 - Alcoholic cirrhosis of liver without ascites Status: Chronic (4) Leukocytosis ICD Code: D72.829 - Elevated white blood cell count, unspecified (5) Hyperammonemia ICD Code: E72.20 - Disorder of urea cycle metabolism, unspecified Status: Resolved (6) Dyspnea ICD Code: R06.00 - Dyspnea, unspecified Status: Acute (7) End-stage liver disease ICD Code: K72.90 - Hepatic failure, unspecified without coma (8) Macrocytic anemia ICD Code: D53.9 - Nutritional anemia, unspecified (9) Coagulopathy ICD Code: D68.9 - Coagulation defect, unspecified (10) Itching ICD Code: L29.9 - Pruritus, unspecified Status: Chronic (11) Positive blood culture ICD Code: R78.81 - Bacteremia Procedures Paracentesis Bone marrow biopsy Brief History - From Admission This is a 37-year-old male with past medical history of end-stage liver disease , hepatorenal syndrome presents to [facility] complaining of increased abdominal pain and girth, mild shortness of breath. Denies chest pain. The patient is irritable and is refusing to talk very much. The patient states he has abdominal pain and generalized pain. The patient has been seen in the emergency department and chest x-ray showed an infiltrate. Patient admitted for treatment of pneumonia. The patient otherwise denies diarrhea, chest pain, dysuria. He states that he has sores all over his body for the past 4 months. CBC/BMP: 02/03/18 1039 02/02/18 0459 Significant Findings Laboratory Tests Test 02/01/18 08:17 02/01/18 11:14 02/02/18 04:59 02/03/18 10:39 White Blood Count 34.5 TH/MM3 (4.0-11.0) 32.3 TH/MM3 (4.0-11.0) 36.0 TH/MM3 (4.0-11.0) Red Blood Count 3.29 MIL/MM3 (4.50-5.90) 3.44 MIL/MM3 (4.50-5.90) 3.47 MIL/MM3 (4.50-5.90) Hemoglobin 11.4 GM/DL (13.0-17.0) 11.9 GM/DL (13.0-17.0) 12.1 GM/DL (13.0-17.0) Hematocrit 33.7 % (39.0-51.0) 34.8 % (39.0-51.0) 35.5 % (39.0-51.0) Mean Corpuscular Volume 102.4 FL (80.0-100.0) 101.2 FL (80.0-100.0) 102.3 FL (80.0-100.0) Mean Corpuscular Hemoglobin 34.7 PG (27.0-34.0) 34.6 PG (27.0-34.0) 34.8 PG (27.0-34.0) Neutrophils # (Auto) 20.6 TH/MM3 (1.8-7.7) 28.2 TH/MM3 (1.8-7.7) Lymphocytes # (Auto) 11.6 TH/MM3 (1.0-4.8) Monocytes # (Auto) 2.2 TH/MM3 (0-0.9) 2.2 TH/MM3 (0-0.9) Neutrophils % (Manual) 81 % (16-70) 90 % (16-70) Lymphocytes % 5 % (9-44) 1 % (9-44) Monocytes % 10 % (0-8) Neutrophils # (Manual) 29.3 TH/MM3 (1.8-7.7) 30.4 TH/MM3 (1.8-7.7) Metamyelocytes 2 % (0-1) Blood Urea Nitrogen 23 MG/DL (7-18) 19 MG/DL (7-18) Total Protein 6.0 GM/DL (6.4-8.2) 6.2 GM/DL (6.4-8.2) Albumin 2.0 GM/DL (3.4-5.0) 2.0 GM/DL (3.4-5.0) Alkaline Phosphatase 295 U/L (45-117) 286 U/L (45-117) Aspartate Amino Transf (AST/SGOT) 74 U/L (15-37) 70 U/L (15-37) Alanine Aminotransferase (ALT/SGPT) 99 U/L (12-78) 103 U/L (12-78) Total Bilirubin 16.0 MG/DL (0.2-1.0) 15.7 MG/DL (0.2-1.0) Sodium Level 133 MEQ/L (136-145) 134 MEQ/L (136-145) Carbon Dioxide Level 16.3 MEQ/L (21.0-32.0) 17.4 MEQ/L (21.0-32.0) Prothrombin Time 19.9 SEC (9.8-11.6) 17.0 SEC (9.8-11.6) Neutrophils (%) (Auto) 87.4 % (16.0-70.0) Lymphocytes (%) (Auto) 5.1 % (9.0-44.0) Target Cells 1+ (NORMAL) [place] Cells 1+ (NORMAL) Imaging Last Impressions Cyst Biopsy Asp-Paracentesis US 01/30/18 Signed Impressions: Service Date/Time: Monday, January 29, 2018 20:01 - CONCLUSION: Uncomplicated ultrasound guided paracentesis. Patient received albumin per protocol. The Roly Brantley MD FACR Chest X-Ray 01/29/18 0443 Signed Impressions: Service Date/Time: Monday, January 29, 2018 04:49 - CONCLUSION: Rotated film with possible developing pleural-parenchymal process Inderjit Ramirez MD CT Angiography 01/29/18 0000 Signed Impressions: Service Date/Time: Monday, January 29, 2018 08:25 - CONCLUSION: 1. No PE is identified. Additionally, no acute finding is identified within the chest. 2. Please refer to abdomen and pelvis CT report for description of the subdiaphragmatic findings. Inderjit Shields MD Abdomen/Pelvis CT 01/29/18 0000 Signed Impressions: Service Date/Time: Monday, January 29, 2018 08:25 - CONCLUSION: 1. The abdominal distention is caused by a moderate to a large volume of ascites related to the patient's chronic liver disease. 2. The liver demonstrates features indicative of cirrhosis. There are also findings indicative of portal hypertension including the collateral blood vessels and the ascites. Inderjit Shields MD PE at Discharge GENERAL: Jaundiced. No acute distress. CARDIOVASCULAR: Regular rate and rhythm without murmurs, gallops, or rubs. RESPIRATORY: Clear to auscultation. Breath sounds equal bilaterally. No wheezes , rales, or rhonchi. GASTROINTESTINAL: Abdomen is distended. Mild diffuse discomfort to palpation. NEUROLOGICAL: Awake and alert. Pt update on day of discharge Patient reports he is feeling better. He wants to go home. Hospital Course 37-year-old male with end-stage liver disease admitted and treated for the following. Sepsis/Bacteremia Sepsis present on admission. Patient with tachycardia and worsening leukocytosis. IV broad-spectrum antibiotics with IV vancomycin and IV Zosyn. Patient growing Staph aureus in blood culture 1/4 bottles. Repeat blood cultures negative at 72 hours. Patient was followed by infectious disease. He is discharged on Keflex and Flagyl per ID recommendations. Bacteremia 1 out of 4 bottles growing MSSA. Repeat blood cultures negative 2. ID followed. Patient treated with IV broad-spectrum antibiotics as per ID recommendations. Hepatic encephalopathy Ammonia elevated at 60 on admission and patient sleepy on exam. Patient's lactulose continued however frequency increased to TID. Cirrhosis with alcoholism/end-stage liver disease Patient with severe ascites. s/pl paracentesis, ascites fluid so far neg Continue rifaximin, pentoxifylline, cholestyramine, hold the spironolactone, continue lactulose. Prednisone to be tapered. Scripts written. Patient stopped drinking about 66 days ago. Still has a lot of stigmata of end- stage liver disease. Remains to be seen how much of his liver function return. He follows outpatient with GI. Advised him to continue to follow regularly. He was encouraged to continue to abstain from alcohol use. His mother at bedside is also supportive. Leukocytosis This has been ongoing for a couple of months. Suspect steroid is also contributing. Appreciate hematology following. A bone marrow biopsy scheduled for today. Macrocytic anemia Likely secondary to hepatic disease. Itching Continue Atarax. Likely due to bile salts accumulation from increased bilirubin. Patient can be discharged home later today after the bone marrow biopsy if stable. Discharge planning and education provided to the patient and his family at bedside. Pt Condition on Discharge: Good Discharge Disposition: Discharge Home Discharge Time: > 30 minutes Discharge Instructions DIET: Follow Instructions for: Heart Healthy Diet Activities you can perform: Regular-No Restrictions Follow up Referrals: Gastroenterology @ [facility]/Hematology with Carmenza Gutierrez MD New Medications: Cephalexin (Keflex) 500 Mg Cap 500 MG PO Q12H for Infection, #10 CAP 0 Refills Metronidazole (Flagyl) 500 Mg Tab 500 MG PO Q8HR, #15 TAB Changed Medications: Lactulose Liq (Lactulose Liq) 10 Gm/15 Ml Soln 40 ML PO TID for 30 Days, #180 ML 0 Refills (Changed from: BID) Prednisone (21) 10 mg tab Dose Pack (Prednisone (21) 10 mg tab Dose Pack) 10 Mg Pack 10 MG PO DIRECTED for Inflammation, #1 DSPK 0 Refills (Changed from: Prednisolone Odt 10 Mg Tab 40 Mg PO DAILY Immunosuppression #90 TAB Ref 3) Continued Medications: Cholecalciferol (Gnp Vitamin D3 Extra Stre) 1,000 Unit Tab 1000 UNITS PO DAILY for Alcohol Detox, #90 TAB 3 Refills Cholestyramine (Cholestyramine) 4 Gm/Pkt Powd 4 GM PO TIDAC for Infection, #270 GM 3 Refills 1 packet contains 4 grams of cholestyramine. Cyanocobalamin (Vitamin B12) 100 Mcg Tab 100 MCG PO DAILY for Immunosuppression, #90 TAB 3 Refills Folic Acid (Folic Acid) 1 Mg Tablet 1 MG PO DAILY for Nutritional Supplement, #30 TAB 0 Refills Hydroxyzine HCl (Hydroxyzine HCl) 50 Mg Tab 50 MG PO Q6H PRN for itching, #120 TAB Midodrine (Midodrine) 5 Mg Tab 2.5 MG PO TID@07,12,17 for Blood Pressure Management, #270 TAB 3 Refills Oxycodone (Oxycodone) 5 Mg Tab 5 MG PO Q4H PRN for PAIN SCALE 4 TO 10, #20 TAB 0 Refills Pantoprazole (Pantoprazole) 40 Mg Tab 40 MG PO DAILY for Prevent Stress Ulcers, #90 TAB 3 Refills Pentoxifylline ER (Pentoxifylline ER) 400 Mg Tab 400 MG PO Q8H for Infection, #270 TAB 3 Refills Potassium Chloride ER (Potassium Chloride ER) 10 Meq Cap 20 MEQ PO BID for Nutritional Supplement, #120 CAP 3 Refills Rifaximin (Xifaxan) 200 Mg Tab 400 MG PO Q8HR for Infection, #270 TAB 3 Refills Sodium Bicarbonate (Sodium Bicarbonate) 650 Mg Tab 650 MG PO Q8HR for Nutritional Supplement, #90 TAB 0 Refills Spironolactone (Aldactone) 25 Mg Tab 25 MG PO BID@09,18 for Blood Pressure Management, #180 TAB 3 Refills Thiamine HCl (Gnp Vitamin B-1) 100 Mg Tab 100 MG PO DAILY for Alcohol Detox, #90 TAB 3 Refills She Baig MD February 03, 2018 11:19
[2018-02-03 11:42] LABS: ALBUMIN 2.2 GM/DL (3.4-5.0); BICARBONATE 15.2 MEQ/L (21.0-32.0); CALCIUM 9.4 MG/DL (8.5-10.1); CREATININE 0.86 MG/DL (0.60-1.30)
[2018-02-03 11:52] LABS: DIRECT BILIRUBIN ADULT 12.7 MG/DL (0.0-0.2); INDIRECT BILIRUBIN 4.5 MG/DL (0.0-0.8); TOTAL BILIRUBIN ADULT 17.2 MG/DL (0.2-1.0); TOTAL PROTEIN 6.4 GM/DL (6.4-8.2)
[2018-02-03] MEDS ORDERED: PRED10PA PO (12:29)
[2018-02-03] MEDS ORDERED: MIDAZOLAM HCL 2 MG/2 ML VIAL ONE ×2 (12:53)
[2018-02-03] MEDS ORDERED: LIDOCAINE HCL 1% 10 ML VIAL OTHER ONE (13:57)
--- NOTE | 2018-02-03 14:34 | RADRPT ---
EXAM DATE/TIME: 02/03/2018 13:17 [facility] COMPARISON: No previous studies available for comparison. INDICATIONS : Leukocytosis SEDATION TIME: 15 minutes BIOPSY SITE: Right iliac MEDICATION(S): 1.) 3 mg midazolam (Versed) IV 2.) 150 mcg fentanyl (Sublimaze) IV DEVICE(S): 1.) 11 gauge Bone marrow biopsy needle MEDICAL HISTORY : Renal failure. liver failure, leukocytosis SURGICAL HISTORY : None. ENCOUNTER: Initial ACUITY: 1 day PAIN SCORE: 0/10 LOCATION: Right iliac A total of one core specimen(s) were obtained and sent to the laboratory for pathologic evaluation. PROCEDURE: 1. CT guided pelvic biopsy. 2. Conscious sedation with continuous EKG and oximetry monitoring. 3. EKG and oximetry remained stable throughout the procedure. Prior to the procedure informed consent was obtained. Any appropriate prior imaging studies were rev iewed. Using automated exposure control and adjustment of the mA and/or kV according to patient size , radiation dose was kept as low as reasonably achievable to obtain optimal diagnostic quality images . DICOM format image data is available electronically for review and comparison. The site was prepped in a sterile fashion. Full sterile technique was used, including cap, mask, osbaldo rile gloves and gown and a large sterile sheet. Hand hygiene and 2% chlorhexidine and/or betadine/al cohol prep was utilized per protocol for cutaneous antisepsis. The skin and subcutaneous tissues wer e infiltrated with local anesthetic solution. With CT guidance the previously identified target was localized. Biopsy was performed using the presc ribed needle as above. Following biopsy marrow aspiration was performed with repeat puncture. Adequa te hemostasis was obtained with compression at the puncture site. Follow-up CT scan reveals no hemorrhage. Conscious sedation was performed with the prescribed dosages and duration as above in the presence of an independent trained radiology nurse to assist in the monitoring of the patient. EKG and oximetry remained stable throughout the procedure. The patient tolerated the procedure well and there were no complications. The patient was sent to Radiology Outpatient Unit in stable condition. CONCLUSION: 1. Uncomplicated CT guided bone marrow aspirate. 2. Uncomplicated CT guided bone marrow biopsy. Roly Brantley MD FACR on February 03, 2018 at 14:32 Board Certified Radiologist. This report was verified electronically.
== END 2018-02-03 17:50 | disposition home or self-care (01) | DRG 872 ==
LOC: NEPC 04:02 → NEDA 08:10 → NEPGCP 11:32 → OBSVTOIN 18:56 → N04B 02-01 20:40
PROVIDERS: ADMIT Family Medicine; ATTEND Family Medicine
PROC: 0W9G3ZZ Drainage of Peritoneal Cavity, Percutaneous Approach (ICD-10-PCS; principal; 2018-01-29)
PROC: 07DR3ZX Extraction of Iliac Bone Marrow, Percutaneous Approach, Diagnostic (ICD-10-PCS; 2018-02-03)
DX: A41.01 Sepsis due to Methicillin susceptible Staphylococcus aureus (principal); E72.20 Disorder of urea cycle metabolism, unspecified; D68.9 Coagulation defect, unspecified; K70.31 Alcoholic cirrhosis of liver with ascites; K72.90 Hepatic failure, unspecified without coma; D53.9 Nutritional anemia, unspecified; F17.210 Nicotine dependence, cigarettes, uncomplicated; L29.9 Pruritus, unspecified
CPT/HCPCS: 38221; 49083; 71045; 71275; 74177; 76937; 77012; 80048; 80053; 80076; 80202; 81001; 82042; 82140; 82150; 82945; 83605; 83615; 83735; 83880; 84075; 84100; 84155; 84157; 84484; 85007; 85027; 85097; 85379; 85610; 85730; 87040; 87070; 87186; 87205; 88112; 88184; 88185; 88237; 88264; 88280; 88305; 88311; 88313; 89051; 96365; 99152; C1729; C1830; J0696; J2250; J2543; J3010; J3370; J7040; J7510; P9047; Q9967

== ENCOUNTER → 2018-02-08 | Outpatient (CLI) | payer OTHER ==
[~2018-02-08] MED LIST changes: +CEPH-460 PO; -INVE3TAB2 PO; +LACT10SO PO; -Lactulose Liq PO; +METR-1 PO; +OXYC1CAP PO; -PHYT10P PO; +PRED10PA PO; -PRED1TAB72 PO; +SPIR100T PO; +ZOFR4TAB3 SL
--- NOTE | 2018-02-08 13:19 | RADRPT ---
EXAM DATE/TIME: 02/08/2018 09:27 [facility] COMPARISON: CT ABDOMEN & PELVIS W CONTRAST, January 29, 2018, 8:25. INDICATIONS : Abdominal pain with ascites. MEDICAL HISTORY : Gastroesophageal reflux disease. Hepatitis. ETOH use daily. Asthma. 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 Paracentesis. ENCOUNTER: Initial ACUITY: 3 months PAIN SCORE: 8/10 LOCATION: Abdomen. MEASUREMENTS: LIVER: 19.8 cm length COMMON DUCT: 6 mm RIGHT KIDNEY: 13.4 x 5.9 x 5.9 cm LEFT KIDNEY: 13.8 x 6.0 x 6.8 cm SPLEEN: 12.3 cm length AORTA: 2.6cm maximal FINDINGS: LIVER: Started appearing liver without focal mass or intrahepatic ductal dilatation. Redemonstration of mode rate amount of ascites. Hepatofugal portal vein flow. COMMON DUCT: No intraluminal mass or stone visualized. GALLBLADDER: Diffuse gall bladder wall thickening with multiple gallstones. No sonographic Allen's sign. PANCREAS: Largely obscured. RIGHT KIDNEY: No hydronephrosis, stone or mass. LEFT KIDNEY: There is a linear echogenic structure in the mid pole measuring up to 1.1 x 4.3 cm. This does not cor respond to the focal abnormality on recent CT exam. This does not have the typical appearance for air or calcifications. may reflect atypical appearance of renal sinus fat. SPLEEN: No focal lesion. Multiple splenic varices. AORTA: Non aneurysmal. IVC: Within normal limits. CONCLUSION: 1. Cirrhotic liver with portal hypertension. 2. Moderate ascites. 3. Cholelithiasis with diffuse gallbladder wall thickening. This finding is commonly seen in setting of chronic liver disease and significantly limits sonographic evaluation of acute cholecystitis. Vitaly Salgado MD on February 08, 2018 at 13:09 Board Certified Radiologist. This report was verified electronically.
== END ==
LOC: HRAD 09:03
PROVIDERS: ATTEND Family Medicine
DX: K70.31 Alcoholic cirrhosis of liver with ascites (principal)
CPT/HCPCS: 76700

== ENCOUNTER → 2018-02-08 | Outpatient (CLI) | payer OTHER ==
[2018-02-08 09:14] LABS: BILIRUBIN, URINE LARGE (NEG); BLOOD, URINE NEG (NEG); GLUCOSE,URINE NEG (NEG); HYALINE CAST, URINE 12 /lpf (RARE); KETONE, URINE NEG (NEG); MUCUS URINE FEW /lpf (OCC); NITRITE,URINE NEG (NEG); RENAL EPITHELIAL CELLS <1 /hpf; SQUAMOUS EPITHELIAL CELL URINE 1 /hpf (0-5); URINE LEUKOCYTE ESTERASE TRACE (NEG)
[2018-02-08 09:15] LABS: URINE COLOR DARK-BROWN (YELLW/STRAW)
[2018-02-08 09:21] LABS: AUTOMATED NEUTROPHIL # 21.3 TH/MM3 (1.8-7.7); BASOPHIL % 0.2 % (0.0-2.0); HEMATOCRIT 34.9 % (39.0-51.0); HEMOGLOBIN 11.9 GM/DL (13.0-17.0); LYMPHOCYTE # 6.8 TH/MM3 (1.0-4.8); MEAN CELL VOLUME 100.8 FL (80.0-100.0); MEAN CORPUSCULAR HEMOGLOBIN 34.5 PG (27.0-34.0); MEAN CORPUSCULAR HGB CONC 34.2 % (32.0-36.0); MEAN PLATELET VOLUME 9.2 FL (7.0-11.0); MONO % 4.7 % (0.0-8.0); MONOCYTE # 1.4 TH/MM3 (0-0.9); NEUT % 72.1 % (16.0-70.0); PLATELET COUNT 436 TH/MM3 (150-450); RED BLOOD COUNT 3.46 MIL/MM3 (4.50-5.90); RED CELL DISTRIBUTION WIDTH 16.7 % (11.6-17.2); WHITE BLOOD COUNT 29.6 TH/MM3 (4.0-11.0)
[2018-02-08 10:22] LABS: BANDS 1 % (0-6); LYMPHOCYTES 4 % (9-44); MONOCYTES 6 % (0-8); NEUTROPHIL # MANUAL DIFF 26.6 TH/MM3 (1.8-7.7); POLYS (SEG NEUTROPHILS) 89 % (16-70)
[2018-02-08 10:23] LABS: BURR CELLS 1+ (NORMAL); TARGET CELLS 1+ (NORMAL)
[2018-02-08 11:13] LABS: ALBUMIN 2.2 GM/DL (3.4-5.0); BICARBONATE 15.9 MEQ/L (21.0-32.0); CALCIUM 9.3 MG/DL (8.5-10.1); CREATININE 1.53 MG/DL (0.60-1.30)
[2018-02-08 11:43] LABS: PHOSPHORUS 3.2 MG/DL (2.5-4.9)
== END ==
LOC: CLAB 08:43
PROVIDERS: ATTEND Internal Medicine Nephrology
DX: K76.7 Hepatorenal syndrome (principal); N18.2 Chronic kidney disease, stage 2 (mild)
CPT/HCPCS: 36415; 80069; 81001; 82570; 84156; 85007; 85027

== ENCOUNTER 2018-02-09 14:04 | Emergency (ER) | END 2018-02-09 19:23 | disposition home or self-care (01) | DX: K72.90 Hepatic failure, unspecified without coma (principal); Z79.899 Other long term (current) drug therapy | CPT/HCPCS: 71045; 80053; 82140; 83605; 83690; 83735; 85007; 85027; 85610; 85730; 87040; 93005; 99285; J7050 ==

== ENCOUNTER 2018-02-14 12:53 | Day surgery (SDC) | payer OTHER ==
[~2018-02-14 12:53] MED LIST changes: -SPIR25 PO
[2018-02-14] MEDS ORDERED: LIDOCAINE HCL 1% 20 ML VIAL SQ ONE (12:54)
[2018-02-14 14:45] VITALS: BP 120/85; PULSE 109; RESP 18; TEMP 96.6; O2SAT 100
[2018-02-14 15:00] VITALS: BP 119/62; PULSE 102; RESP 18; O2SAT 99
--- NOTE | 2018-02-14 15:10 | RADRPT ---
EXAM DATE: 02/14/2018 2:43 PM EDT AGE/SEX: 37 years / Male INDICATIONS: Ascites. CLINICAL DATA: This is the patient's sequela encounter. Patient reports that signs and symptoms have been present for 3 days and indicates a pain score of 5/10. MEDICAL/SURGICAL HISTORY: . GERD. Hepatitis. ETOH. Asthma. . Fatty tumor removed from skull . Paracentesis. COMPARISON: [facility] – [place], [place] GUIDED ABD PARACENTESIS, 01/29/2018. . FLUID: Total volume of 7100 cc of clear, yellow fluid was removed. Fluid was discarded. Paracentesis was the rapeutic only. . . TECHNIQUE: Ultrasound guidance for abdominal paracentesis. Paracentesis. The risks, benefits, and alternatives to ultrasound guided paracentesis were explained to the patient in detail including the risk of bleeding and infection. Written and verbal informed consent was obt ained. With the patient on the ultrasound table, ultrasound imaging was used to select the most appropriate approach for paracentesis. Overlying skin was prepped and draped in the usual sterile fashion and wi th a local anesthetic, a dermatotomy was made with an 11 blade scalpel. A 6 Sinhala [id number] ca theter was introduced into the peritoneal cavity and fluid was collected. The patient tolerated the procedure well and left the ultrasound suite in stable condition. CONCLUSION: Abdominal paracentesis completed without complication. Electronically signed by: Lucio Gonzalez MD 02/14/2018 3:08 PM EDT
[2018-02-14] MEDS ORDERED: ALBUMIN HUMAN 25% 50 GM IV ONE (15:30)
== END 2018-02-14 16:00 | disposition short-term general hospital (02) ==
LOC: HRAD 12:53 → HRIP 15:08 → HRAD 16:00
PROVIDERS: ATTEND Internal Medicine Gastroenterology
DX: K70.31 Alcoholic cirrhosis of liver with ascites (principal); K70.11 Alcoholic hepatitis with ascites; K72.10 Chronic hepatic failure without coma; I10 Essential (primary) hypertension; J45.909 Unspecified asthma, uncomplicated; K21.9 Gastro-esophageal reflux disease without esophagitis
CPT/HCPCS: 49083; P9047

== ENCOUNTER 2018-02-14 16:20 | Inpatient (IN) | payer OTHER ==
[~2018-02-14] VITALS: Ht 188 cm; Wt 86.9 kg
[2018-02-14 16:22] VITALS: BP 120/86; PULSE 98; RESP 19; TEMP 97.7; O2SAT 100
--- NOTE | 2018-02-14 16:25 | PD.RAD ---
Post US Procedure Prog Note Pre Procedure Diagnosis: (1) Ascites Post Procedure Diagnosis: (1) Ascites Procedure Date: February 14, 2018 Supervising Radiologist: Lucio Gonzalez Proceduralist/Assist: Priyanka Hogan RDMS Anesthesia: Local Plan of Activity Patient to Unit: Other Patient Condition: Fair See PACS Report for procedural detail/treatment Drainage Procedure Procedure 1 Imaging Guidance: Ultrasound Side: Right Procedure Type: Paracentesis Fluid Removal (CCs): 7110 Fluid Description: Cloudy, Yellow Lucio Gonzalez MD February 14, 2018 16:25
[2018-02-14 16:57] VITALS: RESP 19; O2SAT 99
[2018-02-14] MEDS ORDERED: MORPHINE SULFATE 4 MG/ML INJ IV PUSH ONE (17:15)
--- NOTE | 2018-02-14 17:42 | PD ---
HPI Chief Complaint: General Weakness Time Seen by Provider: 16:57 Travel History International Travel<30 days: No Contact w/Intl Traveler<30days: No Traveled to known affect area: No History of Present Illness HPI 37-year-old male with end-stage liver disease presents from outpatient paracentesis with diffuse abdominal pain and generalized weakness. He states that he had about 6 L removed. He states he has this about every 7-10 days. He denies any other concurrent complaints. His family helps supplement history. They state that he has had an increased use in his home pain medications and complaining about abdominal pain and not wanting to eat. They have not noticed other specific complaints for him. The symptoms have been over the past couple days. He denies specific modifying factors. Quality is sharp. Location is diffuse. PFSH Past Medical History Asthma: Yes (possibly) Autoimmune Disease: No Cancer: No Cardiovascular Problems: No Cirrhosis: Yes Diabetes: No Diminished Hearing: No Endocrine: No Gastrointestinal Disorders: Yes (LIVER CIRRHOSIS) GERD: No Genitourinary: No Hepatitis: Yes (ALCOHOL INDUCED) Hiatal Hernia: No Immune Disorder: No Musculoskeletal: No Neurologic: No Psychiatric: No Reproductive: No Respiratory: No Ulcer: No Tetanus Vaccination: > 5 Years Influenza Vaccination: No Past Surgical History Other Surgery: Yes (fatty tumor removed from skull) Social History Alcohol Use: No (hx abuse) Tobacco Use: No (quit ) Substance Use: No Allergies-Medications (Allergen,Severity, Reaction): Coded Allergies: No Known Allergies (Verified , 02/14/18) Reported Meds & Prescriptions Reported Meds & Active Scripts Active Oxycodone (Oxycodone HCl) 5 Mg Cap 5 Mg PO Q4H PRN Prednisone (21) 10 mg tab Dose Pack (Prednisone) 10 Mg Pack 10 Mg PO DIRECTED Lactulose Liq (Lactulose) 10 Gm/15 Ml Soln 40 Ml PO TID 30 Days Gnp Vitamin D3 Extra Stre (Cholecalciferol) 1,000 Unit Tab 1,000 Units PO DAILY Gnp Vitamin B-1 (Thiamine HCl) 100 Mg Tab 100 Mg PO DAILY Vitamin B12 (Cyanocobalamin) 100 Mcg Tab 100 Mcg PO DAILY Pantoprazole (Pantoprazole Sodium) 40 Mg Tab 40 Mg PO DAILY Hydroxyzine HCl 50 Mg Tab 50 Mg PO Q6H PRN Cholestyramine 4 Gm/Pkt Powd 4 Gm PO TIDAC 1 packet contains 4 grams of cholestyramine. Pentoxifylline ER (Pentoxifylline) 400 Mg Tab 400 Mg PO Q8H Midodrine 5 Mg Tab 2.5 Mg PO TID@07,12,17 Xifaxan (Rifaximin) 200 Mg Tab 400 Mg PO Q8HR Potassium Chloride ER (Potassium Chloride) 10 Meq Cap 20 Meq PO BID Folic Acid 1 Mg Tablet 1 Mg PO DAILY Sodium Bicarbonate 650 Mg Tab 650 Mg PO Q8HR Reported Spironolactone 100 Mg Tab 100 Mg PO DAILY Hydroxyzine HCl 50 Mg Tab 50 Mg PO Q6HRS PRN Review of Systems Except as stated in HPI: all other systems reviewed are Neg Physical Exam Narrative GENERAL: 37 y/o male who appears chronically ill and older than stated age SKIN: Focused skin assessment warm/dry. HEAD: Atraumatic. Normocephalic. EYES: Pupils equal and round. no injection or drainage. ENT: No nasal bleeding or discharge. Mucous membranes pink and moist. NECK: Trachea midline CARDIOVASCULAR: Regular rate and rhythm. RESPIRATORY: No accessory muscle use. Clear to auscultation at apices. Breath sounds equal bilaterally. GASTROINTESTINAL: Abdomen soft, mild tenderness diffusely, no rebound MUSCULOSKELETAL: No obvious deformities. NEUROLOGICAL: Awake. moves all extremities. Normal speech. Data Data Last Documented VS Vital Signs Date Time Temp Pulse Resp B/P (MAP) Pulse Ox O2 Delivery O2 Flow Rate FiO2 02/14/18 16:57 19 99 Room Air 02/14/18 16:25 99 02/14/18 16:22 97.7 120/86 (97) Orders Orders Complete Blood Count With Diff (02/14/18 16:53) Act Partial Throm Time (Ptt) (02/14/18 16:53) Prothrombin Time / Inr (Pt) (02/14/18 16:53) Iv Access Insert/Monitor (02/14/18 16:53) Ecg Monitoring (02/14/18 16:53) Oximetry (02/14/18 16:53) Urinalysis - C+S If Indicated (02/14/18 16:57) Lipase (02/14/18 17:02) Ct Abd/Pel W Iv Contrast(Rout) (02/14/18 ) Comprehensive Metabolic Panel (02/14/18 17:02) Morphine Inj (Morphine Inj) (02/14/18 17:15) Ammonia (02/14/18 17:08) Ondansetron Odt (Zofran Odt) (02/14/18 17:45) Labs Laboratory Tests Test 02/14/18 17:00 02/14/18 17:10 [facility] Medical Decision Making Medical Screen Exam Complete: Yes Emergency Medical Condition: Yes Medical Record Reviewed: Yes (pmh confirmed) Differential Diagnosis Spontaneous bacterial peritonitis, pancreatitis, anemia, renal failure, hepatorenal syndrome, hepatic encephalopathy, electrolyte abnormality with dehydration Narrative Course We will check blood work, urinalysis, CT scan abdominal pelvis Physician Communication Physician Communication Tried to reach IR and they state fluid has already been disposed of dr bustamante to follow workup and revaluate Verna Manzo MD February 14, 2018 17:42
[2018-02-14] MEDS ORDERED: ONDANSETRON ODT 4 MG TAB PO ONE (17:45)
[2018-02-14 17:46] LABS: AUTOMATED NEUTROPHIL # 22.3 TH/MM3 (1.8-7.7); BASOPHIL # 0.1 TH/MM3 (0-0.2); BASOPHIL % 0.4 % (0.0-2.0); EOSINOPHIL # 0.1 TH/MM3 (0-0.4); EOSINOPHIL % 0.3 % (0.0-4.0); HEMATOCRIT 33.1 % (39.0-51.0); HEMOGLOBIN 11.2 GM/DL (13.0-17.0); LYMPHOCYTE # 2.1 TH/MM3 (1.0-4.8); MEAN CELL VOLUME 103.2 FL (80.0-100.0); MONO % 7.2 % (0.0-8.0); MONOCYTE # 1.9 TH/MM3 (0-0.9); NEUT % 84.1 % (16.0-70.0); PLATELET COUNT 247 TH/MM3 (150-450); RED CELL DISTRIBUTION WIDTH 16.6 % (11.6-17.2); WHITE BLOOD COUNT 26.5 TH/MM3 (4.0-11.0)
[2018-02-14 17:59] VITALS: BP 120/86; PULSE 102; RESP 18; TEMP 97.8; O2SAT 98
[2018-02-14 17:59] LABS: ALBUMIN 4.3 GM/DL (3.4-5.0); ALT (GPT) 64 U/L (12-78); AST (GOT) 51 U/L (15-37); BICARBONATE 14.3 MEQ/L (21.0-32.0); BLOOD UREA NITROGEN 55 MG/DL (7-18); CALCIUM 8.9 MG/DL (8.5-10.1); CHLORIDE 102 MEQ/L (98-107); GLOMERULAR FILTRATION RATE 37 ML/MIN (>89); GLUCOSE,RANDOM 88 MG/DL (74-106); SODIUM (NA) 132 MEQ/L (136-145)
[2018-02-14 18:02] LABS: ALKALINE PHOSPHATASE 188 U/L (45-117); TOTAL PROTEIN 7.5 GM/DL (6.4-8.2)
[2018-02-14 18:23] LABS: BILIRUBIN, URINE MOD (NEG); BLOOD, URINE NEG (NEG); GLUCOSE,URINE NEG (NEG); HYALINE CAST, URINE 20 /lpf (RARE); KETONE, URINE NEG (NEG); MUCUS URINE FEW /lpf (OCC); NITRITE,URINE NEG (NEG); SQUAMOUS EPITHELIAL CELL URINE <1 /hpf (0-5); URINE LEUKOCYTE ESTERASE TRACE (NEG)
[2018-02-14 18:24] LABS: URINE COLOR DARK-BROWN (YELLW/STRAW)
[2018-02-14 18:27] VITALS: BP 118/78; PULSE 108; RESP 20; TEMP 97.8; O2SAT 98
[2018-02-14 19:09] LABS: HOWELL-JOLLY BODIES PRESENT (NONE SEEN)
[2018-02-14 19:10] LABS: BURR CELLS 1+ (NORMAL); KERATOCYTES OCC (NORMAL); TARGET CELLS 2+ (NORMAL)
[2018-02-14] MEDS ORDERED: SENNOSIDES 8.6 MG TAB PO PRN (20:15)
[2018-02-14] MEDS ORDERED: BISACODYL 10 MG SUPP RECTAL PRN (20:15)
[2018-02-14] MEDS ORDERED: NALOXONE HCL 0.4 MG/ML AMP IV PUSH PRN (20:15)
[2018-02-14] MEDS ORDERED: SODIUM CHLORIDE 0.9% FLUSH 10 ML FLUSH IV FLUSH PRN (20:15)
[2018-02-14] MEDS ORDERED: LACTULOSE SYRUP 20 GM/30 ML CUP PO PRN (20:15)
[2018-02-14] MEDS ORDERED: ONDANSETRON HCL 4 MG/2 ML VIAL IVP PRN (20:15)
[2018-02-14] MEDS ORDERED: MAGNESIUM HYDROXIDE SUSP 30 ML CUP PO PRN (20:15)
--- NOTE | 2018-02-14 20:15 | RADRPT ---
EXAM DATE: 02/14/2018 7:38 PM EDT AGE/SEX: 37 years / Male INDICATIONS: Abdomen pain. CLINICAL DATA: This is the patient's initial encounter. Patient reports that signs and symptoms have been present for 1 day and indicates a pain score of 5/10. MEDICAL/SURGICAL HISTORY: Renal disease. Cirrhosis. Hepatitis C. Liver disease. . Paracente sis Today. RADIATION DOSE: 12.09 CTDI (mGy) COMPARISON: [facility] – [place], CT ABDOMEN & PELVIS W/O CONTRAST, 11/24/2017. . TECHNIQUE: Multiple contiguous axial images were obtained through the abdomen. Images were obtained using multiple row detector helical technique. Using dose reduction techniques, radiation dose was ke pt as low as reasonably achievable to obtain optimal diagnostic quality images. FINDINGS: Lower Lungs: There is linear density in the posterior right lower lobe representing atelectasis or co nsolidation. Liver: The left lobe and caudate of the liver appear prominent. The anterior liver margin appears nod ular. A focal hepatic mass is not seen on this noncontrast CT examination. Small calcified gallstones are p resent. Spleen: Homogeneous density without enlargement. Pancreas: Unremarkable without mass or calcification. Kidneys: Normal in size and shape. No evidence of mass or hydronephrosis. Adrenal Glands: Unremarkable. Aorta: The aorta and proximal iliac vessels are grossly unremarkable without aneurysmal dilation. Bowel/Mesentery: There is a moderate amount of ascites. There are 3 small focal high density areas s een, one in the gastric lumen, and 2 in the proximal to mid small bowel. These measure up to 9 mm in length. The cecum and sigmoid colon have a normal configuration. Abdominal Wall: Intact. Retroperitoneum: No evidence of adenopathy in the retrocrural, para-aortic, or deep pelvic regions. Bladder: Contours are smooth. Reproductive Organs: There is a small prostatic calcification. Inguinal: The inguinal region is unremarkable without evidence of adenopathy. Bony Structures: Unremarkable. CONCLUSION: 1. Suspected cirrhotic appearance of the liver. 2. Moderate ascites. 3. Small calcified gallstones. 4. 3 small metallic densities are seen within the gastric lumen and proximal to mid small bowel. The se are of uncertain etiology. 5. Linear atelectasis or consolidation at the right lower lobe. Electronically signed by: Inderjit Robert MD 02/14/2018 8:14 PM EDT
--- NOTE | 2018-02-14 20:25 | PD ---
Data Data Last Documented VS Vital Signs Date Time Temp Pulse Resp B/P (MAP) Pulse Ox O2 Delivery O2 Flow Rate FiO2 02/14/18 18:27 97.8 108 20 118/78 (91) 98 Room Air Orders Orders Complete Blood Count With Diff (02/14/18 16:53) Act Partial Throm Time (Ptt) (02/14/18 16:53) Prothrombin Time / Inr (Pt) (02/14/18 16:53) Iv Access Insert/Monitor (02/14/18 16:53) Ecg Monitoring (02/14/18 16:53) Oximetry (02/14/18 16:53) Urinalysis - C+S If Indicated (02/14/18 16:57) Lipase (02/14/18 17:02) Comprehensive Metabolic Panel (02/14/18 17:02) Morphine Inj (Morphine Inj) (02/14/18 17:15) Ammonia (02/14/18 17:08) Ondansetron Odt (Zofran Odt) (02/14/18 17:45) Oxycodone (Roxicodone) (02/14/18 18:00) Ct Abd/Pel W/O Iv Contrast (02/14/18 ) Place In Observation (02/14/18 ) Vital Signs (Adult) Q4H (02/14/18 20:13) Activity Oob With Assistance (02/14/18 20:13) Diet Heart Healthy (02/15/18 Breakfast) Sodium Chloride 0.9% Flush (Ns Flush) (02/14/18 20:15) Sodium Chloride 0.9% Flush (Ns Flush) (02/14/18 21:00) Ondansetron Inj (Zofran Inj) (02/14/18 20:15) Comprehensive Metabolic Panel (02/15/18 06:00) Complete Blood Count With Diff (02/15/18 06:00) Scd Bilateral/Knee High NUVIA.BID (02/14/18 20:13) Naloxone Inj (Narcan Inj) (02/14/18 20:15) Magnesium Hydroxide Liq (Milk Of Magnesi (02/14/18 20:15) Sennosides (Senokot) (02/14/18 20:15) Bisacodyl Supp (Dulcolax Supp) (02/14/18 20:15) Lactulose Liq (Lactulose Liq) (02/14/18 20:15) Consult Palliative Care (02/14/18 ) Admit Order (Ed Use Only) (02/14/18 ) Labs Laboratory Tests Test 02/14/18 17:00 02/14/18 17:10 02/14/18 18:03 White Blood Count 26.5 TH/MM3 Red Blood Count 3.20 MIL/MM3 Hemoglobin 11.2 GM/DL Hematocrit 33.1 % Mean Corpuscular Volume 103.2 FL Mean Corpuscular Hemoglobin 35.0 PG Mean Corpuscular Hemoglobin Concent 34.0 % Red Cell Distribution Width 16.6 % Platelet Count 247 TH/MM3 Mean Platelet Volume 10.0 FL Neutrophils (%) (Auto) 84.1 % Lymphocytes (%) (Auto) 8.0 % Monocytes (%) (Auto) 7.2 % Eosinophils (%) (Auto) 0.3 % Basophils (%) (Auto) 0.4 % Neutrophils # (Auto) 22.3 TH/MM3 Lymphocytes # (Auto) 2.1 TH/MM3 Monocytes # (Auto) 1.9 TH/MM3 Eosinophils # (Auto) 0.1 TH/MM3 Basophils # (Auto) 0.1 TH/MM3 CBC Comment AUTO DIFF Differential Comment AUTO DIFF CONFIRMED Platelet Estimate NORMAL Platelet Morphology Comment NORMAL Target Cells 2+ Tamayo-[place] Bodies PRESENT Coin Cells 1+ Keratocytes OCC Prothrombin Time 20.0 SEC Prothromb Time International Ratio 2.0 RATIO Activated Partial Thromboplast Time 36.3 SEC Blood Urea Nitrogen 55 MG/DL Creatinine 2.00 MG/DL Random Glucose 88 MG/DL Total Protein 7.5 GM/DL Albumin 4.3 GM/DL Calcium Level 8.9 MG/DL Alkaline Phosphatase 188 U/L Aspartate Amino Transf (AST/SGOT) 51 U/L Alanine Aminotransferase (ALT/SGPT) 64 U/L Total Bilirubin 14.0 MG/DL Sodium Level 132 MEQ/L Potassium Level 5.3 MEQ/L Chloride Level 102 MEQ/L Carbon Dioxide Level 14.3 MEQ/L Anion Gap 16 MEQ/L Estimat Glomerular Filtration Rate 37 ML/MIN Lipase 2814 U/L Ammonia 18 MCMOL/L Urine Color DARK-BROWN Urine Turbidity CLEAR Urine pH 6.0 Urine Specific [place] 1.018 Urine Protein 30 mg/dL Urine Glucose (UA) NEG mg/dL Urine Ketones NEG mg/dL Urine Occult Blood NEG Urine Nitrite NEG Urine Bilirubin MOD Urine Urobilinogen LESS THAN 2.0 MG/DL Urine Leukocyte Esterase TRACE Urine WBC 2 /hpf Urine Squamous Epithelial Cells <1 /hpf Urine Hyaline Casts 20 /lpf Urine Mucus FEW /lpf Microscopic Urinalysis Comment CULT NOT INDICATED MDM Supervised Visit with FALGUNI: No Narrative Course Is a 37-year-old man in end-stage liver disease, brought over after paracentesis. Complains of abrupt onset worsening abdominal pain in the setting of some chronic abdominal pain over the past several days. Worsening functional status, worsening appetite, not eating or drinking. No alcohol for a couple months. Mom states that they are having a follow-up at [place] is still very optimistic that a liver transplant. Patient may be dying. May have complication from his paracentesis. Worsening illness, worsening acidosis. They state the Dr. Tyree toure was going to send him for a naso-enteric tube with IR. Unclear if this was an NG or ND. I spoke to the parents. When the patient admitted to have this tube done. It is unclear if he has any evidence of SBP or infection. His white count is chronically elevated from his liver disease. He has some abdominal tenderness. CT scan does not show any evidence of complication. I spoke to them about talking to palliative care again. They did find it worthwhile and I spoke before. I think the mother's expectations are probably unrealistic however it is reasonable for her to remain hopeful. They are agreeable to palliative care consultation, and discussion with Drs. off a car or his on-call physician regarding plans for enteric tube. Bill Craig MD February 14, 2018 20:25
[2018-02-14] MEDS ORDERED: POTASSIUM CHLORIDE 10 MEQ CAP PO SCH (21:00)
[2018-02-14] MEDS ORDERED: hydrOXYzine HCL 50 MG TAB PO PRN (21:00)
[2018-02-14] MEDS ORDERED: PILL SPLITTER OTHER PRN (21:00)
--- NOTE | 2018-02-14 21:53 | HHI.HP ---
[facility] Gabriel Gil, DO Admission Diagnosis Dehydration, end-stage liver disease Diagnoses: Chief Complaint: abdominal pain Travel History International Travel<30 Days: No Contact w/Intl Traveler <30 Da: No Traveled to Known Affected Are: No History of Present Illness 37 y/o male with a history of End stage liver disease due to alcohol abuse, hepatorenal syndrome and chronic leukocytosis was brought to the ED by family for concerns of generalized weakness and abdominal pain. Prior to arrival patient had an outpatient paracentesis and had 6L removed. This is normal for him every 7-10 days. He is complaining of sharp general abdominal pain all over and is requesting his pain medication. Patient is lethargic but is oriented and able to provide history. No family is at bedside. He states due to the pain he has not been eating or drinking well, he denies any problems swallowing. He states he might be getting a feeding tube outpatient. Patient's records show that he was referred to IR for placement of a Dobbhoff tube, and per ED it was to be done tomorrow. Review of Systems Except as stated in HPI: all other systems reviewed are Neg Past Family Social History Past Medical History Alcohol Abuse ESLD Hepatorenal Syndrome Chronic Leukocytosis Past Surgical History Patient denies any surgical history Reported Medications Reported Meds & Active Scripts Active Oxycodone (Oxycodone HCl) 5 Mg Cap 5 Mg PO Q4H PRN Prednisone (21) 10 mg tab Dose Pack (Prednisone) 10 Mg Pack 10 Mg PO DIRECTED Lactulose Liq (Lactulose) 10 Gm/15 Ml Soln 40 Ml PO TID 30 Days Gnp Vitamin D3 Extra Stre (Cholecalciferol) 1,000 Unit Tab 1,000 Units PO DAILY Gnp Vitamin B-1 (Thiamine HCl) 100 Mg Tab 100 Mg PO DAILY Vitamin B12 (Cyanocobalamin) 100 Mcg Tab 100 Mcg PO DAILY Pantoprazole (Pantoprazole Sodium) 40 Mg Tab 40 Mg PO DAILY Hydroxyzine HCl 50 Mg Tab 50 Mg PO Q6H PRN Cholestyramine 4 Gm/Pkt Powd 4 Gm PO TIDAC 1 packet contains 4 grams of cholestyramine. Pentoxifylline ER (Pentoxifylline) 400 Mg Tab 400 Mg PO Q8H Midodrine 5 Mg Tab 2.5 Mg PO TID@ Xifaxan (Rifaximin) 200 Mg Tab 400 Mg PO Q8HR Potassium Chloride ER (Potassium Chloride) 10 Meq Cap 20 Meq PO BID Folic Acid 1 Mg Tablet 1 Mg PO DAILY Sodium Bicarbonate 650 Mg Tab 650 Mg PO Q8HR Reported Spironolactone 100 Mg Tab 100 Mg PO DAILY Hydroxyzine HCl 50 Mg Tab 50 Mg PO Q6HRS PRN Allergies: Coded Allergies: No Known Allergies (Verified , 02/14/18) Active Ordered Medications Current Medications Medications (Trade) Dose Ordered Sig/Virgil Route Start Time Stop Time Status Last Admin (NS Flush) 2 ml UNSCH PRN IV FLUSH 02/14/18 20:15 (NS Flush) 2 ml BID IV FLUSH 02/14/18 21:00 (Zofran Inj) 4 mg Q6H PRN IVP 02/14/18 20:15 (Narcan Inj) 0.4 mg UNSCH PRN IV PUSH 02/14/18 20:15 (Milk Of Magnesia Liq) 30 ml Q12H PRN PO 02/14/18 20:15 (Senokot) 17.2 mg Q12H PRN PO 02/14/18 20:15 (Dulcolax Supp) 10 mg DAILY PRN RECTAL 02/14/18 20:15 (Lactulose Liq) 30 ml DAILY PRN PO 02/14/18 20:15 (Vitamin D3) 1,000 units DAILY PO 02/15/18 09:00 (Questran 4 Gm Pkt) 4 gm TIDAC PO 02/15/18 08:00 (Vitamin B12) 100 mcg DAILY PO 02/15/18 09:00 (Folate) 1 mg DAILY PO 02/15/18 09:00 (Atarax) 50 mg Q6H PRN PO 02/14/18 21:00 (Lactulose Liq) 40 ml TID PO 02/15/18 09:00 (Proamatine) 2.5 mg TID@, PO 02/15/18 07:00 (Roxicodone) 5 mg Q4H PRN PO 5/22/18 21:00 (Protonix) 40 mg DAILY PO 02/15/18 09:00 (TRENtal SR) 400 mg Q8H PO 02/14/18 22:00 (KCl) 20 meq BID PO 02/14/18 21:00 UNV (Pill Splitter) 1 ea UNSCH PRN OTHER 02/14/18 21:00 Family History Mother has kidney stones Father has no relevant medical history Sister had malignant hyperthermia Social History Prior heavy drinker, denies any recent alcohol use Tobacco use: a few a day Physical Exam Vital Signs Vital Signs Date Time Temp Pulse Resp B/P (MAP) Pulse Ox O2 Delivery O2 Flow Rate FiO2 02/14/18 21:07 02/14/18 18:27 97.8 108 20 118/78 (91) 98 Room Air 02/14/18 17:59 97.8 102 18 120/86 (97) 98 Room Air 02/14/18 16:57 19 99 Room Air 02/14/18 16:25 99 19 100 Room Air 02/14/18 16:22 97.7 98 19 120/86 (97) 100 Physical Exam GENERAL: This is a well-nourished, well-developed patient, in no apparent distress. SKIN: No rashes, ecchymoses or lesions. Cool and dry. Dusky in color. HEAD: Atraumatic. Normocephalic. No temporal or scalp tenderness. EYES: Pupils equal round and reactive. CARDIOVASCULAR: Regular rate and rhythm without murmurs, gallops, or rubs. RESPIRATORY: Clear to auscultation. Breath sounds equal bilaterally. No wheezes , rales, or rhonchi. GASTROINTESTINAL: Abdomen soft,tender, very distended due to ascites. No guarding. MUSCULOSKELETAL: Extremities without clubbing, cyanosis, or edema. No calf tenderness NEUROLOGICAL: Lethargic and oriented. Normal speech. Laboratory Laboratory Tests Test 02/14/18 17:00 02/14/18 17:10 02/14/18 18:03 White Blood Count 26.5 Red Blood Count 3.20 Hemoglobin 11.2 Hematocrit 33.1 Mean Corpuscular Volume 103.2 Mean Corpuscular Hemoglobin 35.0 Mean Corpuscular Hemoglobin Concent 34.0 Red Cell Distribution Width 16.6 Platelet Count 247 Mean Platelet Volume 10.0 Neutrophils (%) (Auto) 84.1 Lymphocytes (%) (Auto) 8.0 Monocytes (%) (Auto) 7.2 Eosinophils (%) (Auto) 0.3 Basophils (%) (Auto) 0.4 Neutrophils # (Auto) 22.3 Lymphocytes # (Auto) 2.1 Monocytes # (Auto) 1.9 Eosinophils # (Auto) 0.1 Basophils # (Auto) 0.1 CBC Comment AUTO DIFF Differential Comment AUTO DIFF CONFIRMED Platelet Estimate NORMAL Platelet Morphology Comment NORMAL Target Cells 2+ Tamayo-[place] Bodies PRESENT [place] Cells 1+ Keratocytes OCC Prothrombin Time 20.0 Prothromb Time International Ratio 2.0 Activated Partial Thromboplast Time 36.3 Blood Urea Nitrogen 55 Creatinine 2.00 Random Glucose 88 Total Protein 7.5 Albumin 4.3 Calcium Level 8.9 Alkaline Phosphatase 188 Aspartate Amino Transf (AST/SGOT) 51 Alanine Aminotransferase (ALT/SGPT) 64 Total Bilirubin 14.0 Sodium Level 132 Potassium Level 5.3 Chloride Level 102 Carbon Dioxide Level 14.3 Anion Gap 16 Estimat Glomerular Filtration Rate 37 Lipase 2814 Ammonia 18 Urine Color DARK-BROWN Urine Turbidity CLEAR Urine pH 6.0 Urine Specific [place] 1.018 Urine Protein 30 Urine Glucose (UA) NEG Urine Ketones NEG Urine Occult Blood NEG Urine Nitrite NEG Urine Bilirubin MOD Urine Urobilinogen LESS THAN 2.0 Urine Leukocyte Esterase TRACE Urine WBC 2 Urine Squamous Epithelial Cells <1 Urine Hyaline Casts 20 Urine Mucus FEW Microscopic Urinalysis Comment CULT NOT INDICATED Result Diagram: 02/14/18 1700 02/14/18 1700 Imaging Caprini VTE Risk Assessment Caprini VTE Risk Assessment: Mod/High Risk (score >= 2) VTE Pharm Contraindication: End Stage Liver Disease Caprini Risk Assessment Model Point Value = 1 Point Value = 2 Point Value = 3 Point Value = 5 Age 41-60 Minor surgery BMI > 25 kg/m2 Swollen legs Varicose veins or History of unexplained or recurrent spontaneous Oral contraceptives or hormone replacement Sepsis (< 1 month) Serious lung disease, including pneumonia (< 1 month) Abnormal pulmonary function Acute myocardial infarction Congestive heart failure (< 1 month) History of inflammatory bowel disease Medical patient at bed rest Age 61-74 Arthroscopic surgery Major open surgery (> 45 min) Laparoscopic surgery (> 45 min) Malignancy Confined to bed (> 72 hours) Immobilizing plaster cast Central venous access Age >= 75 History of VTE Family history of VTE Factor V Leiden Prothrombin [id number] Lupus anticoagulant Anticardiolipin antibodies Elevated serum homocysteine Heparin-induced thrombocytopenia Other congenital or acquired thrombophilia Stroke (< 1 month) Elective arthroplasty Hip, pelvis, or leg fracture Acute spinal cord injury (< 1 month) Prophylaxis Regimen Total Risk Factor Score Risk Level Prophylaxis Regimen 0-1 Low Early ambulation 2 Moderate Order ONE of the following: *Sequential Compression Device (SCD) *Heparin 5000 units SQ BID 3-4 Higher Order ONE of the following medications: *Heparin 5000 units SQ TID *Enoxaparin/Lovenox 40 mg SQ daily (WT < 150 kg, CrCl > 30 mL/min) *Enoxaparin/Lovenox 30 mg SQ daily (WT < 150 kg, CrCl > 10-29 mL/min) *Enoxaparin/Lovenox 30 mg SQ BID (WT < 150 kg, CrCl > 30 mL/min) AND/OR *Sequential Compression Device (SCD) 5 or more Highest Order ONE of the following medications: *Heparin 5000 units SQ TID (Preferred with Epidurals) *Enoxaparin/Lovenox 40 mg SQ daily (WT < 150 kg, CrCl > 30 mL/min) *Enoxaparin/Lovenox 30 mg SQ daily (WT < 150 kg, CrCl > 10-29 mL/min) *Enoxaparin/Lovenox 30 mg SQ BID (WT < 150 kg, CrCl > 30 mL/min) AND *Sequential Compression Device (SCD) Assessment and Plan Problem List: (1) ELKIN (acute kidney injury) ICD Code: N17.9 - Acute kidney failure, unspecified Status: Acute (2) Acute pancreatitis ICD Code: K85.90 - Acute pancreatitis without necrosis or infection, unspecified Status: Acute (3) Failure to thrive Status: Acute (4) End-stage liver disease ICD Code: K72.90 - Hepatic failure, unspecified without coma Status: Chronic Assessment and Plan 37 y/o male with a history of End stage liver disease due to alcohol abuse, hepatorenal syndrome and chronic leukocytosis was brought to the ED by family for concerns of generalized weakness and abdominal pain. Failure to thrive, patient not eating or drinking well due to ESLD -Consult palliative care for ESLD -Patient would probably benefit from a peg vs Dobbhoff tube, will wait until evaluated by palliative to order dobbhoff placement by IR Acute kidney injury, creatine 2.0, baseline .86 -D5 NS at 100ml -Creatine in am Acute pancreatitis, lipase 2814, baseline 450, patient with abdominal pain Abdominal CT reviewed and shows cirrhosis, ascites, calcified gallstones, and 3 small metallic densities seen in the gastric lumen and proximal to mid small bowel -Cont IVF -Lipase in AM -Antiemetics as needed -Resume home pain medication, morphine IV for breakthrough Hyperkalemia, suspect due to ELKIN -trend potassium, post fluids -Hold home Potassium supplements ESLD, chronic -Resume home medications lactulose, pentoxifylline, vitamine B12, spirolactone and rifaximin DVT prophylaxis: SCDs Discussed Condition With Patient, RN and Dr. Valdovinos Problem Qualifiers (1) Acute pancreatitis: Qualified Codes: K85.90 - Acute pancreatitis without necrosis or infection, unspecified (2) Failure to thrive: Qualified Codes: R62.7 - Adult failure to thrive Stephanie Hall February 14, 2018 21:53
[2018-02-14] MEDS: PENTOXIFYLLINE 400 MG CONTROLLED RELEASE TAB PO SCH (23:54)
[2018-02-14] MEDS: DEXT 5%-NACL 0.9% 1000 ML INJ 1,000 ML IV SCH (23:54)
[2018-02-14] MEDS: RIFAXIMIN 200 MG TAB PO SCH (23:54)
[2018-02-14] MEDS: SODIUM CHLORIDE 0.9% FLUSH 10 ML FLUSH IV FLUSH SCH (23:54)
[2018-02-15] VITALS (9 sets, daily range): BP systolic 116–124; BP diastolic 74–91; PULSE 104–216; RESP 16–20; TEMP 97.5–98.2; O2SAT 99–100
[2018-02-15] MEDS: MORPHINE SULFATE 4 MG/ML INJ IV PUSH PRN ×2 (01:48→05:24)
[2018-02-15] MEDS: hydrOXYzine HCL 50 MG TAB PO PRN ×2 (03:49→23:45)
[2018-02-15] MEDS: RIFAXIMIN 200 MG TAB PO SCH ×3 (05:24→20:53)
[2018-02-15] MEDS: MIDODRINE 5 MG TAB PO SCH ×3 (06:16→17:00)
[2018-02-15] MEDS: PENTOXIFYLLINE 400 MG CONTROLLED RELEASE TAB PO SCH ×3 (06:16→20:53)
[2018-02-15 08:14] LABS: AUTOMATED NEUTROPHIL # 18.7 TH/MM3 (1.8-7.7); BASOPHIL % 0.1 % (0.0-2.0); EOSINOPHIL # 0.1 TH/MM3 (0-0.4); EOSINOPHIL % 0.4 % (0.0-4.0); HEMATOCRIT 31.7 % (39.0-51.0); HEMOGLOBIN 10.8 GM/DL (13.0-17.0); LYMPH % 9.2 % (9.0-44.0); LYMPHOCYTE # 2.1 TH/MM3 (1.0-4.8); MEAN CORPUSCULAR HEMOGLOBIN 34.7 PG (27.0-34.0); MEAN PLATELET VOLUME 9.7 FL (7.0-11.0); MONO % 6.5 % (0.0-8.0); MONOCYTE # 1.5 TH/MM3 (0-0.9); NEUT % 83.8 % (16.0-70.0); PLATELET COUNT 181 TH/MM3 (150-450); RED BLOOD COUNT 3.11 MIL/MM3 (4.50-5.90); RED CELL DISTRIBUTION WIDTH 16.4 % (11.6-17.2); WHITE BLOOD COUNT 22.4 TH/MM3 (4.0-11.0)
[2018-02-15 08:45] LABS: ALBUMIN 2.5 GM/DL (3.4-5.0); ALKALINE PHOSPHATASE 179 U/L (45-117); ALT (GPT) 59 U/L (12-78); AST (GOT) 51 U/L (15-37); BICARBONATE 15.3 MEQ/L (21.0-32.0); BLOOD UREA NITROGEN 50 MG/DL (7-18); CALCIUM 9.3 MG/DL (8.5-10.1); CHLORIDE 105 MEQ/L (98-107); GLOMERULAR FILTRATION RATE 49 ML/MIN (>89); GLUCOSE,RANDOM 100 MG/DL (74-106); SODIUM (NA) 132 MEQ/L (136-145); TOTAL BILIRUBIN ADULT 15.4 MG/DL (0.2-1.0); TOTAL PROTEIN 5.7 GM/DL (6.4-8.2)
[2018-02-15 08:47] LABS: CREATININE 1.59 MG/DL (0.60-1.30)
[2018-02-15] MEDS ORDERED: SPIRONOLACTONE 100 MG TAB PO SCH (09:00)
[2018-02-15] MEDS: SODIUM CHLORIDE 0.9% FLUSH 10 ML FLUSH IV FLUSH SCH ×2 (09:00→20:53)
[2018-02-15 09:16] LABS: ACANTHOCYTES 1+ (NORMAL); KERATOCYTES OCC (NORMAL); OVALOCYTES 1+ (NORMAL); TARGET CELLS 1+ (NORMAL)
[2018-02-15] MEDS: CHOLESTYRAMINE 4 GM PACKET PO SCH ×3 (09:59→17:00)
[2018-02-15] MEDS: DEXT 5%-NACL 0.9% 1000 ML INJ 1,000 ML IV SCH ×2 (09:59→17:45)
[2018-02-15] MEDS: FOLIC ACID 1 MG TAB PO SCH (10:00)
[2018-02-15] MEDS: PANTOPRAZOLE SOD 40 MG DELAYED RELEASE TAB PO SCH (10:01)
[2018-02-15] MEDS: LACTULOSE SYRUP 20 GM/30 ML CUP PO SCH ×3 (10:01→18:00)
[2018-02-15] MEDS: CHOLECALCIFEROL (VIT D3) 1000 UNIT TAB PO SCH (10:02)
--- NOTE | 2018-02-15 10:08 | HHI.PR ---
Subjective Remarks The patient was resting in bed. He said they removed about 7 L from his stomach yesterday. He says he has not been eating well. He says he was told by not to have the tube feeds so he'd like to hold off. Objective Vitals Vital Signs Date Time Temp Pulse Resp B/P (MAP) Pulse Ox O2 Delivery O2 Flow Rate FiO2 02/15/18 07:45 97.5 104 20 124/83 (97) 99 02/15/18 05:37 18 02/15/18 05:13 98.0 105 16 121/77 (92) 100 02/15/18 02:05 111 02/15/18 01:19 97.5 216 16 116/74 (88) 100 02/14/18 21:07 02/14/18 18:27 97.8 108 20 118/78 (91) 98 Room Air 02/14/18 17:59 97.8 102 18 120/86 (97) 98 Room Air 02/14/18 16:57 19 99 Room Air 02/14/18 16:25 99 19 100 Room Air 02/14/18 16:22 97.7 98 19 120/86 (97) 100 I/O 02/14/18 02/14/18 02/14/18 02/15/18 02/15/18 02/15/18 07:00 15:00 23:00 07:00 15:00 23:00 Intake Total 300 ml 1000 ml Output Total 400 ml Balance -100 ml 1000 ml Intake Oral 300 ml IV Total 1000 ml Output Urine Total 400 ml # Voids 1 # Bowel Movements 0 Result Diagram: 02/15/18 0637 02/15/18 0637 Imaging Last Impressions Abdomen/Pelvis CT 02/14/18 0000 Signed Impressions: CONCLUSION: Objective Remarks GENERAL: No distress. SKIN: Cool and dry. Dusky in color. HEAD: Atraumatic. Normocephalic. No temporal or scalp tenderness. EYES: Pupils equal round and reactive. CARDIOVASCULAR: Regular rate and rhythm without murmurs, gallops, or rubs. RESPIRATORY: Clear to auscultation. Breath sounds equal bilaterally. No wheezes , rales, or rhonchi. GASTROINTESTINAL: Abdomen soft, nontender, nondistended. No guarding. MUSCULOSKELETAL: Extremities without clubbing, cyanosis, or edema. NEUROLOGICAL: Lethargic and oriented. Normal speech. A/P Problem List: (1) ELKIN (acute kidney injury) ICD Code: N17.9 - Acute kidney failure, unspecified Status: Acute (2) Acute pancreatitis ICD Code: K85.90 - Acute pancreatitis without necrosis or infection, unspecified Status: Acute (3) Failure to thrive Status: Acute (4) End-stage liver disease ICD Code: K72.90 - Hepatic failure, unspecified without coma Status: Chronic Assessment and Plan 37 y/o male with a history of End stage liver disease due to alcohol abuse, hepatorenal syndrome and chronic leukocytosis was brought to the ED by family for concerns of generalized weakness and abdominal pain. Failure to thrive Patient not eating or drinking well due to ESLD - Consult palliative care for ESLD - Patient may benefit from a peg vs Dobbhoff tube, will wait until evaluated by palliative. - Add Ensure with meals. - PT/ OT. Acute kidney injury, creatine 2.0, baseline .86 Improving. - D5 NS at 100ml. - Hold Aldactone. Acute pancreatitis, lipase 2814, baseline 450, patient with abdominal pain Abdominal CT reviewed and shows cirrhosis, ascites, calcified gallstones, and 3 small metallic densities seen in the gastric lumen and proximal to mid small bowel - Cont IVF - Lipase in AM - Antiemetics as needed - Resume home pain medication, morphine IV for breakthrough Hyperkalemia Suspect due to ELKIN - trend potassium, post fluids - Hold home Potassium supplements ESLD Chronic. S/t alcohol abuse. Has not been drinking for the past few months. - Resume home medications lactulose, pentoxifylline, vitamine B12 and rifaximin. - GI consult if needed. DVT prophylaxis: SCDs Problem Qualifiers (1) Acute pancreatitis: Qualified Codes: K85.90 - Acute pancreatitis without necrosis or infection, unspecified (2) Failure to thrive: Qualified Codes: R62.7 - Adult failure to thrive Edin Andrade DO February 15, 2018 10:08
--- NOTE | 2018-02-15 14:12 | PD.CONS ---
Consult Service Palliative Care Consult Requested By Dr. Valdovinos Primary Care Physician Gabriel Gil, Reason for Consultation a. To assist with evaluation and management of symptoms including: Anorexia , pruritus, shortness of breath, abdominal pain b. To assist medical decision maker(s) with: better understanding of current medical conditions; weighing benefits/burdens of medical treatment options; making medical treatment decisions. HPI History of Present Illness This is a 37-year-old male with end-stage liver disease who presented to the emergency department 02/14 after undergoing therapeutic paracentesis is 7.1 L of clear fluid. He has a known history of end-stage liver disease and is frequently seen in the emergency department for a variety of symptoms. He undergoes outpatient paracentesis every 1-2 weeks. His presenting complaint at this time was diffuse, sharp, constant abdominal pain of moderate to severe intensity and weakness which had become progressive over the last 2 weeks, necessitating assistance for him to ambulate to the bathroom. He has had a very poor appetite over the last 2 weeks and had been eating less than a tablespoon full of food per meal, per his mother. He had previously been able to eat cereal but states now that food tastes bad to him and even if he can get it in his mouth, he has to spit it out due to the bad taste. He states that he does have hunger but still cannot tolerate the taste. He had recently been weaned off of prednisone and it is noted that his symptoms of anorexia and weakness worsened once off prednisone. He has become much thinner than his previous admission. During his November 24 admission his weight was 119.8 kg and 86 kg at this admission, a total of 33.8 kg (74.36 pounds). He follows with Dr. Head for his liver disease and has been referred to the [facility]. His appointment with [facility] is pending approval of his Medicaid and his mother is pursuing a speedy resolution of that. He has not yet been seen by [facility]. He is also following with Dr. Gutierrez for evaluation of his leukocytosis, which has not resolved with the cessation of prednisone. He underwent bone marrow biopsy February 03 which showed normal cellular bone marrow with trilineage maturation and increased stainable iron. Peripheral blood smear showed moderate leukocytosis with neutrophilia and borderline macrocytic anemia. Mr. Singh has not had the opportunity to discuss the results of that test with Dr. Gutierrez, as he is waiting to get an appointment to see her for follow-up. He follows with his primary physician Dr. Gil, through the [facility], while he is awaiting his appointment with [facility] to be evaluated for liver transplant. He has abstained from alcohol for the last 2 months. ED course * Laboratory: WBC 26.5, hemoglobin 11.2, hematocrit 33.1, platelets 247, PT 20.0 , INR 2.0, APTT 36.3, sodium 132, potassium 5.3, BUN 55, creatinine 2.00, total bilirubin 14.0, AST 51, ALT 64, alkaline phosphatase 188, serial lipase 2814, 1408. Urinalysis was negative * Radiology: CT of the abdomen and pelvis without contrast showed suspected cirrhotic appearance of the liver, moderate ascites, small calcified gallstones , 3 small metallic densities seen within the gastric lumen and proximal mid small bowel of uncertain etiology and linear atelectasis or consolidation of the right lobe. This is a thin, jaundiced, disheveled looking young man lying in bed with eyes closed, in no acute distress. He states he "wants to take a nap. His answers appear oriented but his parents state he is frequently confused and forgetful. He complains of abdominal tenderness today similar to his presenting complaint as noted above, as well as shortness of breath which occurs with increasing ascites and presents as a pressure primarily located at the lower margin of moderate severity feeling as though he cannot take a full breath and is starving for oxygen. If improves somewhat after paracentesis but is present constantly waxing and waning with fluid levels in his peritoneal cavity. Function/Cognitive Trajectory He was previously living independently but now his parents live with him full- time as caregivers. Due to weakness, confusion and encephalopathy, he requires assistance to ambulate to the bathroom and to obtain. He was previously able to ambulate to the kitchen to heat up broth, but no longer able to accomplish that. His mother brings him food, but his appetite has declined to eating only 1-2 teaspoons of food per meal with minimal fluid intake. He has become more confused and forgetful and is unable to manage his own affairs. . Review of Systems ROS Limitations: Clinical Condition Constitutional: COMPLAINS OF: Weight loss, Change in appetite, Pain, Generalized weakness Endocrine: COMPLAINS OF: Heat/cold intolerance Eyes: DENIES: Blurred vision, Diplopia, Eye inflammation, Eye pain, Vision loss , Photosensitivity, Double Vision, Blind spots Ears, nose, mouth, throat: DENIES: Tinnitus, Hearing loss, Vertigo, Nasal discharge, Oral lesions, Throat pain, Hoarseness, Ear Pain, Running Nose, Epistaxis, Sinus Pain, Toothache, Odynophagia Respiratory: COMPLAINS OF: Shortness of breath Cardiovascular: COMPLAINS OF: Dyspnea on Exertion Gastrointestinal: COMPLAINS OF: Abdominal pain, Anorexia Genitourinary: DENIES: Sexual dysfunction, Urinary frequency, Urinary incontinence, Urgency, Hematuria, Dysuria, Nocturia, Penile Discharge, Testicular Pain, Testicular Swelling, Hesitancy, Dribbling, Decreased stream Musculoskeletal: DENIES: Joint pain, Muscle aches, Stiffness, Joint Swelling, Back pain, Neck pain, Decreased range of motion Integumentary: COMPLAINS OF: Abnormal pigmentation (Jaundice), Non-healing sores Hematologic/Lymphatics: DENIES: Bruising, Lymphadenopathy, Prolonged bleed w/ proced, History of transfusions Immunologic/Allergic: DENIES: Eczema, Urticaria Neurologic: COMPLAINS OF: Poor Balance Psychiatric: COMPLAINS OF: Confusion Past Family Social History Coded Allergies: No Known Allergies (Verified , 02/14/18) Past Medical History Alcohol Abuse ESLD Hepatorenal Syndrome Chronic Leukocytosis Asthma . Past Surgical History Fatty tumor removal in high school [place] tooth extraction Recurrent paracentesis . Reported Medications Reported Meds & Active Scripts Active Oxycodone (Oxycodone HCl) 5 Mg Cap 5 Mg PO Q4H PRN Prednisone (21) 10 mg tab Dose Pack (Prednisone) 10 Mg Pack 10 Mg PO DIRECTED Lactulose Liq (Lactulose) 10 Gm/15 Ml Soln 40 Ml PO TID 30 Days Gnp Vitamin D3 Extra Stre (Cholecalciferol) 1,000 Unit Tab 1,000 Units PO DAILY Gnp Vitamin B-1 (Thiamine HCl) 100 Mg Tab 100 Mg PO DAILY Vitamin B12 (Cyanocobalamin) 100 Mcg Tab 100 Mcg PO DAILY Pantoprazole (Pantoprazole Sodium) 40 Mg Tab 40 Mg PO DAILY Hydroxyzine HCl 50 Mg Tab 50 Mg PO Q6H PRN Cholestyramine 4 Gm/Pkt Powd 4 Gm PO TIDAC 1 packet contains 4 grams of cholestyramine. Pentoxifylline ER (Pentoxifylline) 400 Mg Tab 400 Mg PO Q8H Midodrine 5 Mg Tab 2.5 Mg PO TID@ Xifaxan (Rifaximin) 200 Mg Tab 400 Mg PO Q8HR Potassium Chloride ER (Potassium Chloride) 10 Meq Cap 20 Meq PO BID Folic Acid 1 Mg Tablet 1 Mg PO DAILY Sodium Bicarbonate 650 Mg Tab 650 Mg PO Q8HR Reported Spironolactone 100 Mg Tab 100 Mg PO DAILY Hydroxyzine HCl 50 Mg Tab 50 Mg PO Q6HRS PRN Current Medications Medications (Trade) Dose Ordered Sig/Virgil Route Start Time Stop Time Status Last Admin (NS Flush) 2 ml UNSCH PRN IV FLUSH 02/14/18 20:15 (NS Flush) 2 ml BID IV FLUSH 02/14/18 21:00 02/15/18 09:00 (Narcan Inj) 0.4 mg UNSCH PRN IV PUSH 02/14/18 20:15 (Milk Of Magnesia Liq) 30 ml Q12H PRN PO 02/14/18 20:15 (Senokot) 17.2 mg Q12H PRN PO 02/14/18 20:15 (Dulcolax Supp) 10 mg DAILY PRN RECTAL 02/14/18 20:15 (Lactulose Liq) 30 ml DAILY PRN PO 02/14/18 20:15 (Vitamin D3) 1,000 units DAILY PO 02/15/18 09:00 02/15/18 10:02 (Questran 4 Gm Pkt) 4 gm TIDAC PO 02/15/18 08:00 02/15/18 09:59 (Vitamin B12) 100 mcg DAILY PO 02/15/18 09:00 (Folate) 1 mg DAILY PO 02/15/18 09:00 02/15/18 10:00 (Atarax) 50 mg Q6H PRN PO 02/14/18 21:00 02/15/18 03:49 (Lactulose Liq) 40 ml TID PO 02/15/18 09:00 02/15/18 10:01 (Proamatine) 2.5 mg TID@, PO 02/15/18 07:00 02/15/18 06:16 (Roxicodone) 5 mg Q4H PRN PO 02/14/18 21:00 5/23/18 03:14 (Protonix) 40 mg DAILY PO 02/15/18 09:00 02/15/18 10:01 (TRENtal SR) 400 mg Q8H PO 02/14/18 22:00 02/15/18 06:16 (Pill Splitter) 1 ea UNSCH PRN OTHER 02/14/18 21:00 Dextrose/Sodium Chloride 1,000 ml @ 100 mls/hr Q10H IV 02/14/18 21:45 02/15/18 09:59 (Morphine Inj) 2 mg Q3H PRN IV PUSH 02/14/18 21:45 02/15/18 05:24 (Zofran Odt) 4 mg Q6H PRN SL 02/14/18 21:45 (Xifaxan) 400 mg Q8HR PO 02/14/18 22:00 02/15/18 05:24 Family History Mother has kidney stones Father has no relevant medical history Sister had malignant hyperthermia . Substance Use Tobacco: Smokes one quarter pack daily since he was a teenager. Alcohol: Drank at least 1/2 L of bourbon daily. Has abstained from alcohol for 2 months. Prescription med abuse: No history. Illicits: Admits to marijuana, denies IV drug use. Chart review indicates previous admission of remote IV drug use. . Psychosocial History He was born and completed high school in [place] then moved to [place] with his parents when they retired. He has never been or had children. He has never been in the armed service. He works at [email or web address]. . Spiritual/Cultural Factors Identifies with the Anglican ovidio. . Living Will: Never completed Health Care Surrogate: Copy in medical record Durable Power of Tapering Machine Operator: Never completed Date completed: 11/28/2017 . Health Care Surrogate(s): He has elected his mother, Linda as well, as his healthcare surrogate. . Documented care wishes: No living will available. . Today's verbally stated goals: His goal is to obtain insurance to be able to go to [facility] for possible liver transplant. . Family/friends goals: Mother and father are at bedside. Goals are aggressive. . Ethical and Legal Issues None noted. Physical Exam Vital Signs Date Time Temp Pulse Resp B/P (MAP) Pulse Ox O2 Delivery O2 Flow Rate FiO2 02/15/18 11:19 98.2 110 18 118/81 (93) 100 02/15/18 07:45 97.5 104 20 124/83 (97) 99 02/15/18 05:37 18 02/15/18 05:13 98.0 105 16 121/77 (92) 100 02/15/18 02:05 111 02/15/18 01:19 97.5 216 16 116/74 (88) 100 02/14/18 21:07 02/14/18 18:27 97.8 108 20 118/78 (91) 98 Room Air 02/14/18 17:59 97.8 102 18 120/86 (97) 98 Room Air 02/14/18 16:57 19 99 Room Air 02/14/18 16:25 99 19 100 Room Air 02/14/18 16:22 97.7 98 19 120/86 (97) 100 Exam CONSTITUTIONAL/GENERAL: This is a thin, jaundiced patient, in no apparent distress. TUBES/LINES/DRAINS: PIV SKIN: Severely jaundiced with multiple open sores scratching. Ecchymoses on upper extremities. No wounds seen anteriorly. Skin temperature appropriate. Not diaphoretic. HEAD: Atraumatic. Normocephalic. EYES: Pupils equal and round and reactive. Extraocular motions intact. No scleral icterus. No injection or drainage. Fundi not examined. ENT: Hearing grossly normal. Nose without bleeding or purulent drainage. Throat without visible erythema, exudates, masses, or lesions. NECK: Trachea midline. Supple, nontender. No palpable thyroid enlargement or nodularity. CARDIOVASCULAR: S1, S2, tachycardic rate, regular rhythm without murmurs, gallops, or rubs. Mild JVD. Peripheral pulses symmetric. RESPIRATORY/CHEST: Symmetric, unlabored respirations. Clear to auscultation. Breath sounds equal bilaterally. No wheezes, rales, or rhonchi. GASTROINTESTINAL: Abdomen soft, mildly tender, distended. Limited exam due to ascites and body habitus. GENITOURINARY: Without palpable bladder distension. MUSCULOSKELETAL: Extremities without clubbing, cyanosis, or edema. No joint tenderness or effusion noted. No calf tenderness. No mottling or clubbing. LYMPHATICS: No palpable cervical or supraclavicular adenopathy. NEUROLOGICAL: Lethargic, arousable, appears oriented 4 with limited insight. PSYCHIATRIC: No obvious anxiety/depression. no apparent hallucinations or other psychotic thought process. . Diagnostic Tests Laboratory Laboratory Tests Test 02/14/18 17:00 02/14/18 17:10 02/14/18 18:03 02/15/18 06:37 White Blood Count 26.5 TH/MM3 (4.0-11.0) 22.4 TH/MM3 (4.0-11.0) Red Blood Count 3.20 MIL/MM3 (4.50-5.90) 3.11 MIL/MM3 (4.50-5.90) Hemoglobin 11.2 GM/DL (13.0-17.0) 10.8 GM/DL (13.0-17.0) Hematocrit 33.1 % (39.0-51.0) 31.7 % (39.0-51.0) Mean Corpuscular Volume 103.2 FL (80.0-100.0) 102.0 FL (80.0-100.0) Mean Corpuscular Hemoglobin 35.0 PG (27.0-34.0) 34.7 PG (27.0-34.0) Mean Corpuscular Hemoglobin Concent 34.0 % (32.0-36.0) 34.0 % (32.0-36.0) Red Cell Distribution Width 16.6 % (11.6-17.2) 16.4 % (11.6-17.2) Platelet Count 247 TH/MM3 (150-450) 181 TH/MM3 (150-450) Mean Platelet Volume 10.0 FL (7.0-11.0) 9.7 FL (7.0-11.0) Neutrophils (%) (Auto) 84.1 % (16.0-70.0) 83.8 % (16.0-70.0) Lymphocytes (%) (Auto) 8.0 % (9.0-44.0) 9.2 % (9.0-44.0) Monocytes (%) (Auto) 7.2 % (0.0-8.0) 6.5 % (0.0-8.0) Eosinophils (%) (Auto) 0.3 % (0.0-4.0) 0.4 % (0.0-4.0) Basophils (%) (Auto) 0.4 % (0.0-2.0) 0.1 % (0.0-2.0) Neutrophils # (Auto) 22.3 TH/MM3 (1.8-7.7) 18.7 TH/MM3 (1.8-7.7) Lymphocytes # (Auto) 2.1 TH/MM3 (1.0-4.8) 2.1 TH/MM3 (1.0-4.8) Monocytes # (Auto) 1.9 TH/MM3 (0-0.9) 1.5 TH/MM3 (0-0.9) Eosinophils # (Auto) 0.1 TH/MM3 (0-0.4) 0.1 TH/MM3 (0-0.4) Basophils # (Auto) 0.1 TH/MM3 (0-0.2) 0.0 TH/MM3 (0-0.2) CBC Comment AUTO DIFF AUTO DIFF Differential Comment AUTO DIFF CONFIRMED AUTO DIFF CONFIRMED Platelet Estimate NORMAL (NORMAL) NORMAL (NORMAL) Platelet Morphology Comment NORMAL (NORMAL) NORMAL (NORMAL) Target Cells 2+ (NORMAL) 1+ (NORMAL) [place] Bodies PRESENT (NONE SEEN) [place] Cells 1+ (NORMAL) Keratocytes OCC (NORMAL) OCC (NORMAL) Prothrombin Time 20.0 SEC (9.8-11.6) Prothromb Time International Ratio 2.0 RATIO Activated Partial Thromboplast Time 36.3 SEC (24.3-30.1) Blood Urea Nitrogen 55 MG/DL (7-18) 50 MG/DL (7-18) Creatinine 2.00 MG/DL (0.60-1.30) 1.59 MG/DL (0.60-1.30) Random Glucose 88 MG/DL (74-106) 100 MG/DL (74-106) Total Protein 7.5 GM/DL (6.4-8.2) 5.7 GM/DL (6.4-8.2) Albumin 4.3 GM/DL (3.4-5.0) 2.5 GM/DL (3.4-5.0) Calcium Level 8.9 MG/DL (8.5-10.1) 9.3 MG/DL (8.5-10.1) Alkaline Phosphatase 188 U/L (45-117) 179 U/L (45-117) Aspartate Amino Transf (AST/SGOT) 51 U/L (15-37) 51 U/L (15-37) Alanine Aminotransferase (ALT/SGPT) 64 U/L (12-78) 59 U/L (12-78) Total Bilirubin 14.0 MG/DL (0.2-1.0) 15.4 MG/DL (0.2-1.0) Sodium Level 132 MEQ/L (136-145) 132 MEQ/L (136-145) Potassium Level 5.3 MEQ/L (3.5-5.1) 4.4 MEQ/L (3.5-5.1) Chloride Level 102 MEQ/L (98-107) 105 MEQ/L (98-107) Carbon Dioxide Level 14.3 MEQ/L (21.0-32.0) 15.3 MEQ/L (21.0-32.0) Anion Gap 16 MEQ/L (5-15) 12 MEQ/L (5-15) Estimat Glomerular Filtration Rate 37 ML/MIN (>89) 49 ML/MIN (>89) Lipase 2814 U/L (73-393) 1408 U/L (73-393) Ammonia 18 MCMOL/L (11-32) Urine Color DARK-BROWN (YELLW/STRAW) Urine Turbidity CLEAR (CLEAR) Urine pH 6.0 (5.0-8.5) Urine Specific [place] 1.018 (1.002-1.035) Urine Protein 30 mg/dL (NEG-TRACE) Urine Glucose (UA) NEG mg/dL (NEG) Urine Ketones NEG mg/dL (NEG) Urine Occult Blood NEG (NEG) Urine Nitrite NEG (NEG) Urine Bilirubin MOD (NEG) Urine Urobilinogen LESS THAN 2.0 MG/DL (LESS Urine Leukocyte Esterase TRACE (NEG) Urine WBC 2 /hpf (0-5) Urine Squamous Epithelial Cells <1 /hpf (0-5) Urine Hyaline Casts 20 /lpf (RARE) Urine Mucus FEW /lpf (OCC) Microscopic Urinalysis Comment CULT NOT INDICATED Ovalocytes 1+ (NORMAL) Acanthocytes 1+ (NORMAL) Result Diagram: 02/15/1837 02/15/18636 Patient/Family Conference Present at Family Conference: Spoke with mother and father at bedside. Reviewed palliative care purpose and focus. Goals of care have been established at prior visits and remain aggressive. Reviewed below listed items. At family request hospice services were again reviewed but as their goal is aggressive to consider organ transplant , goals are not consistent with hospice. Family states they still have contact information from prior visit and phone number was confirmed. . Family Conference Location: Bedside Issues Discussed: * Palliative care role, purpose, approach * Additional medical, psychosocial, and spiritual history * Patients general health, functional status, and cognitive changes in the months leading up to the current hospitalization * Patient/family understanding of the current medical problems * Patient/family understanding of prognosis * Patients goals of care as best understood from advance directives and/or conversations and/or values * Current medical treatment options and benefits/burdens of those options * Likely scenarios comparing ongoing aggressive care with a transition to comfort measures only * Questions answered to the best of my ability * Palliative care contact information provided Assessment and Plan Disease Oriented Problem List: (1) Hepatorenal syndrome (2) Hepatic encephalopathy (3) Cirrhosis with alcoholism (4) Coagulopathy (5) Itching (6) End stage liver disease (7) Ascites Symptom Scale: (1) Abdominal pain 0-10 Scale: 6 (.) (2) Anorexia 0-10 Scale: 9 (3) Shortness of breath (4) Pruritus Pertinent Non-Medical Issues Psychosocial:He was born and completed high school in [place] then moved to [place] with his parents when they retired. He has never been or had children. He has never been in the armed service. He works at [email or web address]. Spiritual:Identifies with the [employer] ovidio. Legal: None identified. Ethical issues impacting care: None identified. . Important Contacts Mother: Linda العلي . Prognosis His prognosis is guarded. Although he had a long history of heavy alcohol use, he has abstained for the last 2 months and is pursuing liver transplant. His medications are being administered to him by his mother due to his underlying confusion and lethargy, likely related to hepatic encephalopathy. At this time he is pending Medicaid and his transplant evaluation is being held pending insurance funding. His appetite has declined to nearly nothing and he is requiring paracentesis every 1-2 weeks. Family is now requesting insertion of a Dobbhoff tube as Dr. Head felt that a PEG tube would be a poor option for him with his constant ascites pressure. He has had multiple hospitalizations since October and is likely to continue to have complications , decline and recurrent hospitalizations. . Code Status: Full Code Plan PLAN: Legal decision maker: At this time the patient is having some hepatic encephalopathy, confusion and forgetfulness. He appears to have poor insight into his condition. He has named his mother his healthcare surrogate and she is readily available and willing to serve. Would recommend shared decision making at this point. Goals: Aggressive. CODE STATUS: FULL CODE SYMPTOMS: * Anorexia: His anorexia worsened with weaning him off of the prednisone and he has lost nearly 75 pounds in 2-1/2 months. His legs show muscle wasting and this is likely increasing his protein deficiency and worsening his ascites. His mother inquired about a PEG tube by Dr. Head felt this was a poor option as it would likely have a constant ascites leak and be prone to infection. She then asked about a nasogastric feeding tube and decision was made to consider Dobbhoff. The benefits and burdens of this were reviewed with the family and goals remain extremely aggressive. Boost has been added to his meals by the hospitalist staff. Megace had previously been initiated by GI but was not listed on his home medications. Would consider adding Megace for appetite inducement. * Pruritus: He is seen continually scratch even while his eyes are closed. He receives hydroxyzine at night to help the itching and allow him to sleep. His mother feels this has also worsened since the cessation of prednisone. * Shortness of breath: This is likely multifactorial to include a previous history of smoking and ascites pressure up on the diaphragm with poor protein stores allowing third spacing of fluid. He is receiving paracentesis every 1-2 weeks. * Abdominal pain: He has constant abdominal pain worsening with increasing ascites and is requiring frequent paracentesis with an average of 7-8 L per session. His mother is asking for more frequent paracentesis. Will defer to primary medical staff on timing but patient would likely benefit from GI consult to evaluate the benefits/burdens of resuming prednisone. SUMMARY This is a 37-year-old with end-stage liver disease, abstaining from alcohol for the last 2 months, awaiting insurance to begin workup at [facility] for possible transplant. Goals are extremely aggressive and while family states they would like the hospice services of home health visits and medical backup, they also wish to continue workup for transplant so goals are not consistent with hospice. I did explain this to the mother who is requesting case management to evaluate him for any available home health services. On maximum therapy his bilirubin has declined from 25 at a previous visit down to 15.5 at this visit. He is significantly jaundiced. If goals were consistent, he would be hospice appropriate. At this time goals remain very aggressive. Palliative care will continue to follow the patient during hospital course as condition evolves, to assist patient/decision-maker with understanding of their medical conditions, weighing benefits/burdens of treatment options, for clarification of goals of treatment. Additionally will assist with any symptoms of palliative concern. . Thank you for the opportunity to participate in the care of Mr. العلي. Attestation To help prompt me to consider important information that might be impacting today's encounter and assessment, information from prior notes written by myself or my colleagues may have been "brought forward" into today's note. My signature on this note, however, is an attestation that I personally performed the exam, history, and/or decision-making noted today, and, unless otherwise indicated, the interactions with patient, family, and staff as well as the review of records all occurred today. I also attest that the listed assessment and stated plan reflect my best clinical judgment today based on the combination of historical information, prior notes, and today's exam/ interactions. When time spent is documented, it refers only to time spent today by the signer, or if indicated, combined time spent today by collaborating physician/nurse practitioner. . Ariana Pedroza February 15, 2018 2:12 pm
--- NOTE | 2018-02-15 14:42 | EKG ---
Date Performed: 02/15/2018 Time Performed: 01:45:37 PTAGE: 37 years EKG: SINUS TACHYCARDIA ABNORMAL RHYTHM ECG No significant change from prior electrocardiogram. DOCTOR: Timothy Arzate Interpretating Date/Time 02/15/2018 14:40:54
[2018-02-15] MEDS: ONDANSETRON ODT 4 MG TAB SL PRN ×2 (15:06→23:45)
[2018-02-15] MEDS ORDERED: METOCLOPRAMIDE HCL 10 MG/2 ML VIAL IV PUSH ONE (16:30)
--- NOTE | 2018-02-15 16:57 | PD.CONS ---
HPI History of Present Illness This is a 37 year old M with medical history significant for cirrhosis secondary to ETOH abuse who has been decompensating over the past few months and required multiple hospitalizations. Hospice and palliative care have been consulted in the past but patient's mother remains very persistent regarding wishes for aggressive care. She has made statements that family members have volunteered to donate portions of their liver and she is willing to pay for patient's medical treatment because at this time patient does not have any insurance although she is in the process of helping him apply for Medicaid. Pt is well known to our service and has been seen inpatient and in the clinic. Last seen in the clinic two days ago by Dr. Markham who sent the patient to have paracentesis and also suggested Dobhoff placement due to patients inadequate nutrition. Per pts mother pt has been vomiting increasingly frequent over the past couple of days and even prior to that has had a poor appetite. He has been on Megace and initially was having some mild improvement in appetite. A PEG tube/G tube is contraindicated given the significant ascites and according to Dr. Markham's note there has been concern for SBP. Pt was started on a 5 day course of Ciprofloxacin 2 days ago. Throughout all of our encounters with this patient he has had a persistently elevated white blood cell count, according to office notes he has had a bone marrow biopsy recently by Dr. Hahn to evaluate this. Pt came to [place] yesterday to have an outpatient paracentesis done and was planning on having Dobhoff placed at the same time, however, according to patient's mother pt was extremely weak and could not sit in the wheelchair. He was asking to lay flat on a stretcher. Pts mother states staff advised pt to be admitted through the ER given this weakness. (Ava Santos) PFSH Past Medical History Alcohol Abuse ESLD Hepatorenal Syndrome Chronic Leukocytosis Asthma Cirrhosis Past Surgical History Fatty tumor removal in high school [place] tooth extraction Recurrent paracentesis Bone marrow biopsy (Ava Santos) Coded Allergies: No Known Allergies (Verified , 02/14/18) Family History Mother has kidney stones Father has no relevant medical history Sister had malignant hyperthermia . 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) GI Exam Vitals I&O Vital Signs Date Time Temp Pulse Resp B/P (MAP) Pulse Ox O2 Delivery O2 Flow Rate FiO2 02/15/18 11:19 98.2 110 18 118/81 (93) 100 02/15/18 07:45 97.5 104 20 124/83 (97) 99 02/15/18 05:37 18 02/15/18 05:13 98.0 105 16 121/77 (92) 100 02/15/18 02:05 111 02/15/18 01:19 97.5 216 16 116/74 (88) 100 02/14/18 21:07 02/14/18 18:27 97.8 108 20 118/78 (91) 98 Room Air 02/14/18 17:59 97.8 102 18 120/86 (97) 98 Room Air 02/14/18 16:57 19 99 Room Air I/O 02/14/18 02/14/18 02/14/18 02/15/18 02/15/18 02/15/18 07:00 15:00 23:00 07:00 15:00 23:00 Intake Total 300 ml 1000 ml Output Total 400 ml Balance -100 ml 1000 ml Intake Oral 300 ml IV Total 1000 ml Output Urine Total 400 ml # Voids 1 # Bowel Movements 0 Imaging Last Impressions Abdomen/Pelvis CT 02/14/18 0000 Signed Impressions: CONCLUSION: 1. Suspected cirrhotic appearance of the liver. 2. Moderate ascites. 3. Small calcified gallstones. 4. 3 small metallic densities are seen within the gastric lumen and proximal t o mid small bowel. These are of uncertain etiology. 5. Linear atelectasis or consolidation at the right lower lobe. Laboratory Test 02/14/18 17:00 02/14/18 17:10 02/14/18 18:03 02/15/18 06:37 White Blood Count 26.5 TH/MM3 22.4 TH/MM3 Red Blood Count 3.20 MIL/MM3 3.11 MIL/MM3 Hemoglobin 11.2 GM/DL 10.8 GM/DL Hematocrit 33.1 % 31.7 % Mean Corpuscular Volume 103.2 FL 102.0 FL Mean Corpuscular Hemoglobin 35.0 PG 34.7 PG Mean Corpuscular Hemoglobin Concent 34.0 % 34.0 % Red Cell Distribution Width 16.6 % 16.4 % Platelet Count 247 TH/MM3 181 TH/MM3 Mean Platelet Volume 10.0 FL 9.7 FL Neutrophils (%) (Auto) 84.1 % 83.8 % Lymphocytes (%) (Auto) 8.0 % 9.2 % Monocytes (%) (Auto) 7.2 % 6.5 % Eosinophils (%) (Auto) 0.3 % 0.4 % Basophils (%) (Auto) 0.4 % 0.1 % Neutrophils # (Auto) 22.3 TH/MM3 18.7 TH/MM3 Lymphocytes # (Auto) 2.1 TH/MM3 2.1 TH/MM3 Monocytes # (Auto) 1.9 TH/MM3 1.5 TH/MM3 Eosinophils # (Auto) 0.1 TH/MM3 0.1 TH/MM3 Basophils # (Auto) 0.1 TH/MM3 0.0 TH/MM3 CBC Comment AUTO DIFF AUTO DIFF Differential Comment AUTO DIFF CONFIRMED AUTO DIFF CONFIRMED Platelet Estimate NORMAL NORMAL Platelet Morphology Comment NORMAL NORMAL Target Cells 2+ 1+ [place] Bodies PRESENT [place] Cells 1+ Keratocytes OCC OCC Prothrombin Time 20.0 SEC Prothromb Time International Ratio 2.0 RATIO Activated Partial Thromboplast Time 36.3 SEC Blood Urea Nitrogen 55 MG/DL 50 MG/DL Creatinine 2.00 MG/DL 1.59 MG/DL Random Glucose 88 MG/DL 100 MG/DL Total Protein 7.5 GM/DL 5.7 GM/DL Albumin 4.3 GM/DL 2.5 GM/DL Calcium Level 8.9 MG/DL 9.3 MG/DL Alkaline Phosphatase 188 U/L 179 U/L Aspartate Amino Transf (AST/SGOT) 51 U/L 51 U/L Alanine Aminotransferase (ALT/SGPT) 64 U/L 59 U/L Total Bilirubin 14.0 MG/DL 15.4 MG/DL Sodium Level 132 MEQ/L 132 MEQ/L Potassium Level 5.3 MEQ/L 4.4 MEQ/L Chloride Level 102 MEQ/L 105 MEQ/L Carbon Dioxide Level 14.3 MEQ/L 15.3 MEQ/L Anion Gap 16 MEQ/L 12 MEQ/L Estimat Glomerular Filtration Rate 37 ML/MIN 49 ML/MIN Lipase 2814 U/L 1408 U/L Ammonia 18 MCMOL/L Urine Color DARK-BROWN Urine Turbidity CLEAR Urine pH 6.0 Urine Specific [place] 1.018 Urine Protein 30 mg/dL Urine Glucose (UA) NEG mg/dL Urine Ketones NEG mg/dL Urine Occult Blood NEG Urine Nitrite NEG Urine Bilirubin MOD Urine Urobilinogen LESS THAN 2.0 MG/DL Urine Leukocyte Esterase TRACE Urine WBC 2 /hpf Urine Squamous Epithelial Cells <1 /hpf Urine Hyaline Casts 20 /lpf Urine Mucus FEW /lpf Microscopic Urinalysis Comment CULT NOT INDICATED Ovalocytes 1+ Acanthocytes 1+ Physical Examination HEENT: Normocephalic; atraumatic; (+) icterus CHEST: Even/unlabored CARDIAC: RRR ABDOMEN: Distended, soft, nontender, bowel sounds active SKIN: (+) jaundice. 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 (Ava Santos) Assessment and Plan Plan Assessment: - Cirrhosis secondary to ETOH abuse Pt well known to our service, seen both inpatient and in the clinic As per HPI- pt was having outpatient paracentesis and Dobhoff done, but he was extremely weak and could not sit up in wheelchair and asked for a stretcher- due to weakness he was advised to go to ER As per HPI mother is very persistent about aggressive care - Possible SBP- Started on Cipro 2 days ago - Poor nutrition- Pt with decreased appetite, has been previously started on Megace with some improvement but has had increasingly frequent nausea and emesis recently- PEG contraindicated given ascites and concern for SBP- pt started on Cipro 2 days ago in the clinic - Persistent leukocytosis- followed by Dr. Hahn- reports recent bone marrow biopsy Plan: IR consult for Dobhoff Nutrition consult [place] Continue with current supportive care As noted in previous hospitalizations, Hospice is appropriate Further recommendations based on clinical course Pt has been seen and examined by myself and Dr. Lopez and this note is written on his behalf (Ava Santos) Physician Comments Patient seen and examined patient with cirrhosis, alcoholic hepatitis, ascites, leukocytosis, encephalopathy, coagulopathy Agree with above Continue with current supportive care Monitor labs Patient with probable liver failure at this point with little to no improvement in the past several months Patient with high probability of demise (Hiro Lopez MD) Ava Santos February 15, 2018 16:57 Hiro Lopez MD February 15, 2018 22:28
[2018-02-15] MEDS: CYANOCOBALAMIN 100 MCG TAB PO SCH (17:00)
[2018-02-15] MEDS: cefTRIAXone INJ 1,000 MG in SODIUM CHLORIDE 0.9% INJ 100 ML IV SCH (18:25)
[2018-02-16] VITALS (7 sets, daily range): BP systolic 118–130; BP diastolic 78–92; PULSE 23–127; RESP 16–20; TEMP 96–98.5; O2SAT 96–100
[2018-02-16] MEDS: DEXT 5%-NACL 0.9% 1000 ML INJ 1,000 ML IV SCH ×3 (03:55→23:45)
[2018-02-16] MEDS: cefTRIAXone INJ 1,000 MG in SODIUM CHLORIDE 0.9% INJ 100 ML IV SCH ×2 (04:57→17:08)
[2018-02-16] MEDS: RIFAXIMIN 200 MG TAB PO SCH ×3 (04:58→21:55)
[2018-02-16] MEDS: PENTOXIFYLLINE 400 MG CONTROLLED RELEASE TAB PO SCH ×3 (04:58→21:55)
[2018-02-16] MEDS: hydrOXYzine HCL 50 MG TAB PO PRN (04:58)
[2018-02-16] MEDS: MIDODRINE 5 MG TAB PO SCH ×3 (06:03→17:00)
[2018-02-16] MEDS: CHOLESTYRAMINE 4 GM PACKET PO SCH ×3 (08:00→17:00)
[2018-02-16] MEDS: CYANOCOBALAMIN 100 MCG TAB PO SCH (09:00)
[2018-02-16] MEDS: FOLIC ACID 1 MG TAB PO SCH (09:00)
[2018-02-16] MEDS: LACTULOSE SYRUP 20 GM/30 ML CUP PO SCH ×3 (09:00→18:00)
[2018-02-16] MEDS: PANTOPRAZOLE SOD 40 MG DELAYED RELEASE TAB PO SCH (09:00)
[2018-02-16] MEDS: CHOLECALCIFEROL (VIT D3) 1000 UNIT TAB PO SCH (09:00)
[2018-02-16] MEDS: SODIUM CHLORIDE 0.9% FLUSH 10 ML FLUSH IV FLUSH SCH ×2 (09:00→21:00)
[2018-02-16 09:03] LABS: HEMATOCRIT 32.2 % (39.0-51.0); HEMOGLOBIN 11.2 GM/DL (13.0-17.0); MEAN CELL VOLUME 101.9 FL (80.0-100.0); MEAN CORPUSCULAR HEMOGLOBIN 35.4 PG (27.0-34.0); MEAN CORPUSCULAR HGB CONC 34.8 % (32.0-36.0); MEAN PLATELET VOLUME 9.6 FL (7.0-11.0); PLATELET COUNT 194 TH/MM3 (150-450); RED BLOOD COUNT 3.16 MIL/MM3 (4.50-5.90); RED CELL DISTRIBUTION WIDTH 16.5 % (11.6-17.2); WHITE BLOOD COUNT 25.3 TH/MM3 (4.0-11.0)
--- NOTE | 2018-02-16 09:15 | HHI.PR ---
Subjective Remarks The pt was about to work with PT. He wanted to drink water. He said he'd be getting his feeding tube and that would make his mom happy. He has pain located at his sides. Discussed with nursing. Objective Vitals Vital Signs Date Time Temp Pulse Resp B/P (MAP) Pulse Ox O2 Delivery O2 Flow Rate FiO2 02/16/18 08:30 96.4 23 20 130/92 (105) 96 02/16/18 05:58 18 02/16/18 04:53 98.4 125 16 118/78 (91) 98 02/16/18 00:45 98.1 114 16 124/84 (97) 100 02/15/18 23:00 121 02/15/18 20:45 98.0 126 16 124/79 (94) 99 02/15/18 20:00 123 02/15/18 16:00 97.7 118 20 124/91 (102) 100 02/15/18 11:19 98.2 110 18 118/81 (93) 100 I/O 02/15/18 02/15/18 02/15/18 02/16/18 02/16/18 02/16/18 07:00 15:00 23:00 07:00 15:00 23:00 Intake Total 1000 ml Balance 1000 ml IV Total 1000 ml Result Diagram: 02/15/18 0637 02/15/18 0637 Imaging Last Impressions Abdomen/Pelvis CT 02/14/18 0000 Signed Impressions: CONCLUSION: 1. Suspected cirrhotic appearance of the liver. 2. Moderate ascites. 3. Small calcified gallstones. 4. 3 small metallic densities are seen within the gastric lumen and proximal t o mid small bowel. These are of uncertain etiology. 5. Linear atelectasis or consolidation at the right lower lobe. Objective Remarks GENERAL: No distress. SKIN: Cool and dry. Dusky in color. HEAD: Atraumatic. Normocephalic. No temporal or scalp tenderness. EYES: Pupils equal round and reactive. CARDIOVASCULAR: Regular rate and rhythm without murmurs, gallops, or rubs. RESPIRATORY: Clear to auscultation. Breath sounds equal bilaterally. No wheezes , rales, or rhonchi. GASTROINTESTINAL: Abdomen soft, nontender, nondistended. No guarding. MUSCULOSKELETAL: Extremities without clubbing, cyanosis, or edema. NEUROLOGICAL: Lethargic and oriented. Normal speech. A/P Problem List: (1) ELKIN (acute kidney injury) ICD Code: N17.9 - Acute kidney failure, unspecified Status: Acute (2) Acute pancreatitis ICD Code: K85.90 - Acute pancreatitis without necrosis or infection, unspecified Status: Acute (3) Failure to thrive Status: Acute (4) End-stage liver disease ICD Code: K72.90 - Hepatic failure, unspecified without coma Status: Chronic Assessment and Plan 37 y/o male with a history of End stage liver disease due to alcohol abuse, hepatorenal syndrome and chronic leukocytosis was brought to the ED by family for concerns of generalized weakness and abdominal pain. Failure to thrive Patient not eating or drinking well due to ESLD - Consulted palliative care for ESLD. Assistance appreciated. - Patient may benefit from a Dobbhoff tube. IR has been consulted. Dietary consult for tube feeds. - Add Ensure with meals. - PT/ OT. ESLD Chronic. S/t alcohol abuse. Has not been drinking for the past few months. GI consult appreciated. - Resume home medications lactulose, pentoxifylline, vitamine B12 and rifaximin. - follow up with GI. Acute pancreatitis, lipase 2814, baseline 450, patient with abdominal pain Abdominal CT reviewed and shows cirrhosis, ascites, calcified gallstones, and 3 small metallic densities seen in the gastric lumen and proximal to mid small bowel - Cont IVF - Lipase in AM - pain control and antiemetics as needed - Resume home pain medication, morphine IV for breakthrough Acute kidney injury, creatine 2.0, baseline .86 Improving. - D5 NS at 100ml. - Hold Aldactone. Hyperkalemia Suspect due to ELKIN - trend potassium and hold home potassium supplements. DVT prophylaxis: SCDs Problem Qualifiers (1) Acute pancreatitis: Qualified Codes: K85.90 - Acute pancreatitis without necrosis or infection, unspecified (2) Failure to thrive: Qualified Codes: R62.7 - Adult failure to thrive Edin Andrade DO February 16, 2018 09:15
[2018-02-16 09:34] LABS: ALBUMIN 2.2 GM/DL (3.4-5.0); BICARBONATE 12.3 MEQ/L (21.0-32.0); CALCIUM 9.1 MG/DL (8.5-10.1); CREATININE 1.26 MG/DL (0.60-1.30); DIRECT BILIRUBIN ADULT 11.8 MG/DL (0.0-0.2); INDIRECT BILIRUBIN 3.4 MG/DL (0.0-0.8); MAGNESIUM 1.8 MG/DL (1.5-2.5); TOTAL BILIRUBIN ADULT 15.2 MG/DL (0.2-1.0); TOTAL PROTEIN 5.6 GM/DL (6.4-8.2)
[2018-02-16] MEDS ORDERED: LORazepam 2 MG/ML VIAL ONE (13:17)
--- NOTE | 2018-02-16 15:50 | PD.RAD ---
Post Procedure Progress Note Pre Procedure Diagnosis: (1) Failure to thrive Post Procedure Diagnosis: (1) Failure to thrive Procedure Date: February 16, 2018 Supervising Radiologist: Reginaldo Wilsno Proceduralist/Assist: RT Ernestina(R)(CV) Plan of Activity Patient to Unit: Nursing Unit Patient Condition: Good See PACS Report for procedural detail/treatment Feeding Tube Dobhoff Placement Findings: Tip in distal gastric antrum/proximal duodenum Reginaldo Wilson MD February 16, 2018 15:50
--- NOTE | 2018-02-16 16:47 | HHI.HCPN ---
Reason for visit a. To assist with evaluation and management of symptoms including: Anorexia , abdominal pain b. To assist medical decision maker(s) with: better understanding of current medical conditions; weighing benefits/burdens of medical treatment options; making medical treatment decisions. Subjective/Interval History Patient seen to follow-up on symptoms of anorexia and abdominal pain. Patient seen status post placement of Dobbhoff tube to left nare for supplemental feedings. He has had moderately severe anorexia for the last several months. His appetite has been very poor and has been unable to eat more than a few bites. He has lost at least 75 pounds in the last 2 months. He vomited a little earlier today after drinking an Ensure. Usually vomits after drinking an entire ensure. He is pending a speech therapy evaluation prior to resuming oral diet. He states that food has an abnormal taste that is intolerable to him. Dietary is following to determine goal rate, feeding schedule and formula. Abdominal pain is improved after paracentesis of 7.1 L on 02/14. Abdomen remains distended but soft. The pain is diffuse encompassing the entire abdominal area extending into the flanks of moderate severity, constant, improved by paracentesis, which he requires every 7-14 days. . Family/friend interactions Spoke with mother and father at length. It is the goal of the mother to "bulk him up" as she feels that this will reverse the process and make him healthy enough to undergo transplant. At this time the patient is extremely debilitated and ill appearing. He has a very poor performance status and at this point appears to weak to undergo surgery. I did discuss with his mother the role of the pancreas and liver in the digestion of food as well as his tolerance for replenishment feedings. As he vomits after an Ensure, he may not tolerate bolus feedings and may require low rate continuous feedings. We also discussed the risk of aspiration that is associated with tube feedings and the need to elevate the head of the bed 35 to prevent reflux of the tube feeding backup the esophagus increasing risk for aspiration. Gently explored the possibilities of him not being able to absorb the nutrients, regardless of what form they are delivered in, liquid food versus solid food. We also discussed Ihsan's quality of life currently and how the possibility of increased nausea and vomiting could erode that. We discussed balancing his symptom control to support a tolerable quality of life versus the aggressive goals of increasing his caloric intake, at the risk of nausea and vomiting. . Advance Directives Living Will: Never completed Health Care Surrogate: Copy in medical record Durable Power of Clinical Engineering Director: Never completed Advance Directive Specifics Date completed: 11/28/2017 . Health Care Surrogate(s): He has elected his mother, Linda as well, as his healthcare surrogate. . Documented care wishes: No living will available. . Objective Vital Signs Date Time Temp Pulse Resp B/P (MAP) Pulse Ox O2 Delivery O2 Flow Rate FiO2 02/16/18 16:08 98.0 120 20 123/84 (97) 98 02/16/18 12:30 96.0 121 20 128/81 (97) 99 02/16/18 08:30 96.4 23 20 130/92 (105) 96 02/16/18 05:58 18 02/16/18 04:53 98.4 125 16 118/78 (91) 98 02/16/18 00:45 98.1 114 16 124/84 (97) 100 02/15/18 23:00 121 02/15/18 20:45 98.0 126 16 124/79 (94) 99 02/15/18 20:00 123 Physical Exam CONSTITUTIONAL/GENERAL: This is a thin, jaundiced ill appearing, middle-aged man , lying in bed in no acute distress. TUBES/LINES/DRAINS: PIV, Dobbhoff in left nare SKIN: Severely jaundiced with multiple open sores scratching. Ecchymoses on upper extremities. No wounds seen anteriorly. Skin temperature appropriate. Not diaphoretic. HEAD: Atraumatic. Normocephalic. EYES: Pupils equal and round and reactive. Extraocular motions intact. Positive scleral icterus. No injection or drainage. Fundi not examined. ENT: Hearing grossly normal. Nose without bleeding or purulent drainage. Throat without visible erythema, exudates, masses, or lesions. NECK: Trachea midline. Supple, nontender. No palpable thyroid enlargement or nodularity. CARDIOVASCULAR: S1, S2, tachycardic rate, regular rhythm without murmurs, gallops, or rubs. Mild JVD. Peripheral pulses symmetric. RESPIRATORY/CHEST: Symmetric, unlabored respirations. Clear to auscultation. Breath sounds equal bilaterally. No wheezes, rales, or rhonchi. GASTROINTESTINAL: Abdomen soft, mildly tender, distended. Limited exam due to ascites and body habitus. GENITOURINARY: Without palpable bladder distension. MUSCULOSKELETAL: Extremities without clubbing, cyanosis, or edema. No joint tenderness or effusion noted. No calf tenderness. No mottling or clubbing. LYMPHATICS: No palpable cervical or supraclavicular adenopathy. NEUROLOGICAL: Lethargic, arousable, appears oriented 3 with limited insight. PSYCHIATRIC: No obvious anxiety/depression. no apparent hallucinations or other psychotic thought process. . Diagnostic Tests Laboratory Laboratory Tests Test 02/14/18 17:00 02/14/18 17:10 02/14/18 18:03 02/15/18 06:37 White Blood Count 26.5 TH/MM3 (4.0-11.0) 22.4 TH/MM3 (4.0-11.0) Red Blood Count 3.20 MIL/MM3 (4.50-5.90) 3.11 MIL/MM3 (4.50-5.90) Hemoglobin 11.2 GM/DL (13.0-17.0) 10.8 GM/DL (13.0-17.0) Hematocrit 33.1 % (39.0-51.0) 31.7 % (39.0-51.0) Mean Corpuscular Volume 103.2 FL (80.0-100.0) 102.0 FL (80.0-100.0) Mean Corpuscular Hemoglobin 35.0 PG (27.0-34.0) 34.7 PG (27.0-34.0) Mean Corpuscular Hemoglobin Concent 34.0 % (32.0-36.0) 34.0 % (32.0-36.0) Red Cell Distribution Width 16.6 % (11.6-17.2) 16.4 % (11.6-17.2) Platelet Count 247 TH/MM3 (150-450) 181 TH/MM3 (150-450) Mean Platelet Volume 10.0 FL (7.0-11.0) 9.7 FL (7.0-11.0) Neutrophils (%) (Auto) 84.1 % (16.0-70.0) 83.8 % (16.0-70.0) Lymphocytes (%) (Auto) 8.0 % (9.0-44.0) 9.2 % (9.0-44.0) Monocytes (%) (Auto) 7.2 % (0.0-8.0) 6.5 % (0.0-8.0) Eosinophils (%) (Auto) 0.3 % (0.0-4.0) 0.4 % (0.0-4.0) Basophils (%) (Auto) 0.4 % (0.0-2.0) 0.1 % (0.0-2.0) Neutrophils # (Auto) 22.3 TH/MM3 (1.8-7.7) 18.7 TH/MM3 (1.8-7.7) Lymphocytes # (Auto) 2.1 TH/MM3 (1.0-4.8) 2.1 TH/MM3 (1.0-4.8) Monocytes # (Auto) 1.9 TH/MM3 (0-0.9) 1.5 TH/MM3 (0-0.9) Eosinophils # (Auto) 0.1 TH/MM3 (0-0.4) 0.1 TH/MM3 (0-0.4) Basophils # (Auto) 0.1 TH/MM3 (0-0.2) 0.0 TH/MM3 (0-0.2) CBC Comment AUTO DIFF AUTO DIFF Differential Comment AUTO DIFF CONFIRMED AUTO DIFF CONFIRMED Platelet Estimate NORMAL (NORMAL) NORMAL (NORMAL) Platelet Morphology Comment NORMAL (NORMAL) NORMAL (NORMAL) Target Cells 2+ (NORMAL) 1+ (NORMAL) Tamayo-Dike Bodies PRESENT (NONE SEEN) Rankin Cells 1+ (NORMAL) Keratocytes OCC (NORMAL) OCC (NORMAL) Prothrombin Time 20.0 SEC (9.8-11.6) Prothromb Time International Ratio 2.0 RATIO Activated Partial Thromboplast Time 36.3 SEC (24.3-30.1) Blood Urea Nitrogen 55 MG/DL (7-18) 50 MG/DL (7-18) Creatinine 2.00 MG/DL (0.60-1.30) 1.59 MG/DL (0.60-1.30) Random Glucose 88 MG/DL (74-106) 100 MG/DL (74-106) Total Protein 7.5 GM/DL (6.4-8.2) 5.7 GM/DL (6.4-8.2) Albumin 4.3 GM/DL (3.4-5.0) 2.5 GM/DL (3.4-5.0) Calcium Level 8.9 MG/DL (8.5-10.1) 9.3 MG/DL (8.5-10.1) Alkaline Phosphatase 188 U/L (45-117) 179 U/L (45-117) Aspartate Amino Transf (AST/SGOT) 51 U/L (15-37) 51 U/L (15-37) Alanine Aminotransferase (ALT/SGPT) 64 U/L (12-78) 59 U/L (12-78) Total Bilirubin 14.0 MG/DL (0.2-1.0) 15.4 MG/DL (0.2-1.0) Sodium Level 132 MEQ/L (136-145) 132 MEQ/L (136-145) Potassium Level 5.3 MEQ/L (3.5-5.1) 4.4 MEQ/L (3.5-5.1) Chloride Level 102 MEQ/L (98-107) 105 MEQ/L (98-107) Carbon Dioxide Level 14.3 MEQ/L (21.0-32.0) 15.3 MEQ/L (21.0-32.0) Anion Gap 16 MEQ/L (5-15) 12 MEQ/L (5-15) Estimat Glomerular Filtration Rate 37 ML/MIN (>89) 49 ML/MIN (>89) Lipase 2814 U/L (73-393) 1408 U/L (73-393) Ammonia 18 MCMOL/L (11-32) Urine Color DARK-BROWN (YELLW/STRAW) Urine Turbidity CLEAR (CLEAR) Urine pH 6.0 (5.0-8.5) Urine Specific Keeling 1.018 (1.002-1.035) Urine Protein 30 mg/dL (NEG-TRACE) Urine Glucose (UA) NEG mg/dL (NEG) Urine Ketones NEG mg/dL (NEG) Urine Occult Blood NEG (NEG) Urine Nitrite NEG (NEG) Urine Bilirubin MOD (NEG) Urine Urobilinogen LESS THAN 2.0 MG/DL (LESS Urine Leukocyte Esterase TRACE (NEG) Urine WBC 2 /hpf (0-5) Urine Squamous Epithelial Cells <1 /hpf (0-5) Urine Hyaline Casts 20 /lpf (RARE) Urine Mucus FEW /lpf (OCC) Microscopic Urinalysis Comment CULT NOT INDICATED Ovalocytes 1+ (NORMAL) Acanthocytes 1+ (NORMAL) Test 02/16/18 08:35 White Blood Count 25.3 TH/MM3 (4.0-11.0) Red Blood Count 3.16 MIL/MM3 (4.50-5.90) Hemoglobin 11.2 GM/DL (13.0-17.0) Hematocrit 32.2 % (39.0-51.0) Mean Corpuscular Volume 101.9 FL (80.0-100.0) Mean Corpuscular Hemoglobin 35.4 PG (27.0-34.0) Mean Corpuscular Hemoglobin Concent 34.8 % (32.0-36.0) Red Cell Distribution Width 16.5 % (11.6-17.2) Platelet Count 194 TH/MM3 (150-450) Mean Platelet Volume 9.6 FL (7.0-11.0) Blood Urea Nitrogen 35 MG/DL (7-18) Creatinine 1.26 MG/DL (0.60-1.30) Random Glucose 121 MG/DL (74-106) Total Protein 5.6 GM/DL (6.4-8.2) Albumin 2.2 GM/DL (3.4-5.0) Calcium Level 9.1 MG/DL (8.5-10.1) Magnesium Level 1.8 MG/DL (1.5-2.5) Alkaline Phosphatase 188 U/L (45-117) Aspartate Amino Transf (AST/SGOT) 51 U/L (15-37) Alanine Aminotransferase (ALT/SGPT) 60 U/L (12-78) Total Bilirubin 15.2 MG/DL (0.2-1.0) Direct Bilirubin 11.8 MG/DL (0.0-0.2) Sodium Level 134 MEQ/L (136-145) Potassium Level 3.9 MEQ/L (3.5-5.1) Chloride Level 110 MEQ/L (98-107) Carbon Dioxide Level 12.3 MEQ/L (21.0-32.0) Anion Gap 12 MEQ/L (5-15) Estimat Glomerular Filtration Rate 64 ML/MIN (>89) Indirect Bilirubin 3.4 MG/DL (0.0-0.8) Lipase 1058 U/L (73-393) Result Diagram: 02/16/18 0835 02/16/18 0835 Imaging Last Impressions Abdomen/Pelvis CT 02/14/18 0000 Signed Impressions: CONCLUSION: 1. Suspected cirrhotic appearance of the liver. 2. Moderate ascites. 3. Small calcified gallstones. 4. 3 small metallic densities are seen within the gastric lumen and proximal t o mid small bowel. These are of uncertain etiology. 5. Linear atelectasis or consolidation at the right lower lobe. Procedures 02/16: Dobbhoff tube placement . Assessment and Plan Disease Oriented Problem List: (1) Hepatorenal syndrome (2) Hepatic encephalopathy (3) Cirrhosis with alcoholism (4) Coagulopathy (5) Itching (6) End stage liver disease (7) Ascites Symptom Scale: (1) Abdominal pain 0-10 Scale: 6 (.) (2) Anorexia 0-10 Scale: 9 (3) Shortness of breath (4) Pruritus Pertinent Non-Medical Issues Psychosocial:He was born and completed high school in [place] then moved to [place] with his parents when they retired. He has never been or had children. He has never been in the armed service. He works at [employer]. Spiritual:Identifies with the [employer]. Legal: None identified. Ethical issues impacting care: None identified. . Important Contacts Mother: Linda العلي . Prognosis His prognosis is guarded. Although he had a long history of heavy alcohol use, he has abstained for the last 2 months and is pursuing liver transplant. His medications are being administered to him by his mother due to his underlying confusion and lethargy, likely related to hepatic encephalopathy. At this time he is pending Medicaid and his transplant evaluation is being held pending insurance funding. His appetite has declined to nearly nothing and he is requiring paracentesis every 1-2 weeks. Family is now requesting insertion of a Dobbhoff tube as Dr. Head felt that a PEG tube would be a poor option for him with his constant ascites pressure. He has had multiple hospitalizations since October and is likely to continue to have complications , decline and recurrent hospitalizations. . Code Status: Full Code Plan PLAN: Legal decision maker: At this time the patient is having some hepatic encephalopathy, confusion and forgetfulness. He appears to have poor insight into his condition. He has named his mother his healthcare surrogate and she is readily available and willing to serve. Would recommend shared decision making at this point. Goals: Aggressive. CODE STATUS: FULL CODE SYMPTOMS: * Anorexia: His anorexia worsened with weaning him off of the prednisone and he has lost nearly 75 pounds in 2-1/2 months. His legs show muscle wasting and this is likely increasing his protein deficiency and worsening his ascites. His mother inquired about a PEG tube by Dr. Head felt this was a poor option as it would likely have a constant ascites leak and be prone to infection. She then asked about a nasogastric feeding tube and decision was made to consider Dobbhoff. The benefits and burdens of this were reviewed with the family and goals remain extremely aggressive. Boost has been added to his meals by the hospitalist staff. He is now status post placement of the Dobbhoff , pending clearance to initiate tube feedings. Megace had previously been initiated by GI but was not listed on his home medications. Would consider adding Megace for appetite inducement, which he was receiving at home. * Abdominal pain: He has constant abdominal pain worsening with increasing ascites and is requiring frequent paracentesis with an average of 7-8 L per session. His mother is asking for more frequent paracentesis. Will defer to primary medical staff on timing. GI is now following prognosticating a high probability optimized and recommending hospice. This is inconsistent with his mother's goals, which remain extremely aggressive. Palliative care will continue to follow the patient during hospital course as condition evolves, to assist patient/decision-maker with understanding of their medical conditions, weighing benefits/burdens of treatment options, for clarification of goals of treatment. Additionally will assist with any symptoms of palliative concern. . Attestation To help prompt me to consider important information that might be impacting today's encounter and assessment, information from prior notes written by myself or my colleagues may have been "brought forward" into today's note. My signature on this note, however, is an attestation that I personally performed the exam, history, and/or decision-making noted today, and, unless otherwise indicated, the interactions with patient, family, and staff as well as the review of records all occurred today. I also attest that the listed assessment and stated plan reflect my best clinical judgment today based on the combination of historical information, prior notes, and today's exam/ interactions. When time spent is documented, it refers only to time spent today by the signer, or if indicated, combined time spent today by collaborating physician/nurse practitioner. . Ariana Pedroza February 16, 2018 4:47 pm
--- NOTE | 2018-02-16 16:56 | HHI.GIFU ---
Subjective Remarks Patient is resting on the stretcher with his eyes closed occasionally comments to simple conversation Mother and father present for supportive care Patient received Dobbhoff today without any complications. Reviewed with mother some of his postop needs and the need for safety secondary to him pulling Dobbhoff out Current hemoglobin stable at 11.2 No obvious shortness of breath noted at rest Afebrile (Lise Boland) Objective Vitals I&O Vital Signs Date Time Temp Pulse Resp B/P (MAP) Pulse Ox O2 Delivery O2 Flow Rate FiO2 02/16/18 16:08 98.0 120 20 123/84 (97) 98 02/16/18 12:30 96.0 121 20 128/81 (97) 99 02/16/18 08:30 96.4 23 20 130/92 (105) 96 02/16/18 05:58 18 02/16/18 04:53 98.4 125 16 118/78 (91) 98 02/16/18 00:45 98.1 114 16 124/84 (97) 100 02/15/18 23:00 121 02/15/18 20:45 98.0 126 16 124/79 (94) 99 02/15/18 20:00 123 I/O 02/15/18 02/15/18 02/15/18 02/16/18 02/16/18 02/16/18 07:00 15:00 23:00 07:00 15:00 23:00 Intake Total 1000 ml Balance 1000 ml IV Total 1000 ml Laboratory Laboratory Tests Test 02/16/18 08:35 White Blood Count 25.3 Red Blood Count 3.16 Hemoglobin 11.2 Hematocrit 32.2 Mean Corpuscular Volume 101.9 Mean Corpuscular Hemoglobin 35.4 Mean Corpuscular Hemoglobin Concent 34.8 Red Cell Distribution Width 16.5 Platelet Count 194 Mean Platelet Volume 9.6 Blood Urea Nitrogen 35 Creatinine 1.26 Random Glucose 121 Total Protein 5.6 Albumin 2.2 Calcium Level 9.1 Magnesium Level 1.8 Alkaline Phosphatase 188 Aspartate Amino Transf (AST/SGOT) 51 Alanine Aminotransferase (ALT/SGPT) 60 Total Bilirubin 15.2 Direct Bilirubin 11.8 Sodium Level 134 Potassium Level 3.9 Chloride Level 110 Carbon Dioxide Level 12.3 Anion Gap 12 Estimat Glomerular Filtration Rate 64 Indirect Bilirubin 3.4 Lipase 1058 Imaging Last Impressions Abdomen/Pelvis CT 02/14/18 0000 Signed Impressions: CONCLUSION: 1. Suspected cirrhotic appearance of the liver. 2. Moderate ascites. 3. Small calcified gallstones. 4. 3 small metallic densities are seen within the gastric lumen and proximal t o mid small bowel. These are of uncertain etiology. 5. Linear atelectasis or consolidation at the right lower lobe. Physical Exam HEENT: normocephalic; atraumatic; +jaundice. New Dobbhoff and secured clean dry and intact NECK: Neck is supple. CHEST: Low volume lung sounds with some diminished breath sounds at his bases but no obvious rhonchi CARDIAC: Rhythm regular ABDOMEN: Large, obese, taut, moderate distention, mild fluid wave noted, bowel sounds soft/active EXTREMITIES: No lower extremity, muscular wasting SKIN: Skin dry no rash; + jaundice. BOOM CRANE OPERATOR: Lethargic (Lise Boland) Assessment and Plan Plan Assessment: - Cirrhosis secondary to ETOH abuse Pt well known to our service, seen both inpatient and in the clinic As per HPI- pt was having outpatient paracentesis and Dobhoff done, but he was extremely weak and could not sit up in wheelchair and asked for a stretcher- due to weakness he was advised to go to ER As per HPI mother is very persistent about aggressive care - Possible SBP- Started on Cipro 2 days ago - Poor nutrition- Pt with decreased appetite, has been previously started on Megace with some improvement but has had increasingly frequent nausea and emesis recently- PEG contraindicated given ascites and concern for SBP- pt started on Cipro 2 days ago in the clinic - Persistent leukocytosis- followed by Dr. Hahn- reports recent bone marrow biopsy 02-16 patient received Dobbhoff today, mother and father at his side no known complications. Patient is drowsy but does occasionally arouse a and answer a simple question. No obvious shortness of breath currently but abdomen continues to be moderately distended with mild fluid wave. No current nausea or vomiting noted, no fever. Current hemoglobin is stabilized at 11.2. Nutritional consult pending, palliative care working with patient and family Plan: Diet, if able patient can take sips of liquids, will need dietary assistance with feeding regimen Rocephin Monitor labs with special attention to any acute changes LFTs /hemoglobin Continue with current supportive care to patient and his family Appreciate palliative care input and support Further recommendations based on clinical course, from a GI standpoint patient could discharge from hospital and follow-up on an outpatient basis Pt has been seen and examined by myself and Dr. Lopez and this note is written on his behalf (Lise Boland) Physician Comments Patient seen and examined Agree with above Continue with current supportive care Monitor labs Very poor prognosis (Hiro Lopez MD) Lise Boland February 16, 2018 16:56 Hiro Lopez MD February 16, 2018 23:57
--- NOTE | 2018-02-16 19:34 | RADRPT ---
EXAM DATE: 02/16/2018 3:26 PM EDT AGE/SEX: 37 years / Male INDICATIONS: Patient with cirrhosis secondary to ETOH. Needs feeding tube for nutrition. CLINICAL DATA: This is the patient's initial encounter. Patient reports that signs and symptoms have been present for 2 weeks and indicates a pain score of 0/10. MEDICAL/SURGICAL HISTORY: Asthma. ETOH abuse Cirrhosis Hepatorenal syndrome chronic leukocytosi s . bone marrow betroth extraction recur rant paracentesis COMPARISON: No prior [facility] exams available for comparison. FLUORO TIME (min): 1.2 IMAGE SERIES: 1 DEVICE(S): Dobbhoff . . PROCEDURE: 1. Fluoroscopically guided enteric feeding tube placement. The risks, benefits and alternatives to the procedure were explained and verbal and written consent w as obtained. With fluoroscopic guidance a weighted enteric feeding tube was passed through the nasal cavity into the stomach. The stomach was partially insufflated with air and the tube was navigated through the pyloric channel into the proximal duodenum. CONCLUSION: 1. Uncomplicated Dobbhoff tube placement as above. Electronically signed by: Reginaldo Wilson MD 02/16/2018 7:33 PM EDT
[2018-02-16] MEDS: FREE WATER G-TUBE SCH (22:00)
[2018-02-16] MEDS: MORPHINE SULFATE 4 MG/ML INJ IV PUSH PRN (22:41)
[2018-02-17] VITALS (10 sets, daily range): BP systolic 118–131; BP diastolic 80–92; PULSE 111–126; RESP 16–19; TEMP 98–98.4; O2SAT 97–100
--- NOTE | 2018-02-17 03:43 | RADRPT ---
EXAM DATE: 02/17/2018 3:21 AM EDT AGE/SEX: 37 years / Male INDICATIONS: Evaluate for NG tube placement. CLINICAL DATA: This is the patient's subsequent encounter. Patient reports that signs and symptoms h ave been present for 1 day and indicates a pain score of 0/10. MEDICAL/SURGICAL HISTORY: Asthma. ETOH abuse Cirrhosis Hepatorenal syndrome chronic leukocytosi s . bone marrow betroth extraction. recurrent paracentesis. COMPARISON: No prior [facility] exams available for comparison. FINDINGS: Examination of the abdomen demonstrates a normal bowel gas pattern. No free air is identified. No o rganomegaly is evident. Osseous structures are intact. There is a Dobbhoff tube in place with the ti p in the junction of the third and fourth duodenum. CONCLUSION: Feeding tube in distal duodenum. Electronically signed by: Inderjit Robert MD 02/17/2018 3:41 AM EDT
[2018-02-17] MEDS: cefTRIAXone INJ 1,000 MG in SODIUM CHLORIDE 0.9% INJ 100 ML IV SCH ×2 (05:16→17:30)
[2018-02-17] MEDS: FREE WATER G-TUBE SCH ×3 (06:00→20:53)
[2018-02-17] MEDS: RIFAXIMIN 200 MG TAB PO SCH ×3 (06:00→20:53)
[2018-02-17] MEDS: PENTOXIFYLLINE 400 MG CONTROLLED RELEASE TAB PO SCH ×3 (06:00→20:53)
[2018-02-17 06:42] LABS: HEMATOCRIT 34.4 % (39.0-51.0); HEMOGLOBIN 11.3 GM/DL (13.0-17.0); MEAN CORPUSCULAR HEMOGLOBIN 33.9 PG (27.0-34.0); MEAN CORPUSCULAR HGB CONC 32.9 % (32.0-36.0); MEAN PLATELET VOLUME 9.7 FL (7.0-11.0); PLATELET COUNT 232 TH/MM3 (150-450); RED BLOOD COUNT 3.34 MIL/MM3 (4.50-5.90); RED CELL DISTRIBUTION WIDTH 16.5 % (11.6-17.2); WHITE BLOOD COUNT 23.6 TH/MM3 (4.0-11.0)
[2018-02-17 07:15] LABS: BICARBONATE 13.4 MEQ/L (21.0-32.0); CALCIUM 8.8 MG/DL (8.5-10.1); CREATININE 1.34 MG/DL (0.60-1.30); MAGNESIUM 1.8 MG/DL (1.5-2.5)
[2018-02-17 07:23] LABS: DIRECT BILIRUBIN ADULT 11.1 MG/DL (0.0-0.2); INDIRECT BILIRUBIN 3.5 MG/DL (0.0-0.8); TOTAL BILIRUBIN ADULT 14.6 MG/DL (0.2-1.0); TOTAL PROTEIN 5.6 GM/DL (6.4-8.2)
[2018-02-17] MEDS: SODIUM CHLORIDE 0.9% FLUSH 10 ML FLUSH IV FLUSH SCH ×2 (07:53→09:01)
[2018-02-17] MEDS: MORPHINE SULFATE 4 MG/ML INJ IV PUSH PRN (07:53)
[2018-02-17] MEDS: LACTULOSE SYRUP 20 GM/30 ML CUP PO SCH ×3 (09:00→17:29)
[2018-02-17] MEDS: CYANOCOBALAMIN 100 MCG TAB PO SCH (09:00)
[2018-02-17] MEDS: FOLIC ACID 1 MG TAB PO SCH (09:00)
[2018-02-17] MEDS: CHOLESTYRAMINE 4 GM PACKET PO SCH ×3 (09:00→17:29)
[2018-02-17] MEDS: MIDODRINE 5 MG TAB PO SCH ×3 (09:01→17:30)
[2018-02-17] MEDS: PANTOPRAZOLE SOD 40 MG DELAYED RELEASE TAB PO SCH (09:01)
[2018-02-17] MEDS: CHOLECALCIFEROL (VIT D3) 1000 UNIT TAB PO SCH (09:01)
--- NOTE | 2018-02-17 10:47 | HHI.PR ---
Subjective Remarks The patient was upset that he would have to be on continuous tube feeds. He was able to do well with speech therapy earlier. His family was at the bedside. They said they need to be educated on tube feeding and requested home health care. Discussed with nursing. Objective Vitals Vital Signs Date Time Temp Pulse Resp B/P (MAP) Pulse Ox O2 Delivery O2 Flow Rate FiO2 02/17/18 08:00 98.1 126 18 131/92 (105) 98 02/17/18 08:00 119 02/17/18 03:44 98.4 120 16 118/80 (93) 99 02/17/18 03:40 117 02/17/18 00:56 98.4 122 16 124/82 (96) 97 02/17/18 00:00 124 02/16/18 22:50 16 02/16/18 21:34 98.5 127 16 122/79 (93) 99 02/16/18 16:08 98.0 120 20 123/84 (97) 98 02/16/18 12:30 96.0 121 20 128/81 (97) 99 I/O 02/16/18 02/16/18 02/16/18 02/17/18 02/17/18 02/17/18 07:00 15:00 23:00 07:00 15:00 23:00 Output Total 350 ml Balance -350 ml Output Urine Total 350 ml Result Diagram: 02/17/18 0545 02/17/18 0545 Imaging Last Impressions Abdomen X-Ray 02/17/18 0000 Signed Impressions: CONCLUSION: Feeding tube in distal duodenum. Abdomen Fluoroscopy 02/16/18 0000 Signed Impressions: CONCLUSION: 1. Uncomplicated Dobbhoff tube placement as above. Abdomen/Pelvis CT 02/14/18 0000 Signed Impressions: CONCLUSION: 1. Suspected cirrhotic appearance of the liver. 2. Moderate ascites. 3. Small calcified gallstones. 4. 3 small metallic densities are seen within the gastric lumen and proximal t o mid small bowel. These are of uncertain etiology. 5. Linear atelectasis or consolidation at the right lower lobe. Objective Remarks GENERAL: No distress. SKIN: Cool and dry. Dusky in color. HEAD: Atraumatic. Normocephalic. No temporal or scalp tenderness. EYES: Pupils equal round and reactive. CARDIOVASCULAR: Tachycardic without murmurs, gallops, or rubs. RESPIRATORY: Clear to auscultation. Breath sounds equal bilaterally. No wheezes , rales, or rhonchi. GASTROINTESTINAL: Abdomen soft, nontender, nondistended. No guarding. Dobbhoff in place. MUSCULOSKELETAL: Extremities without clubbing, cyanosis, or edema. NEUROLOGICAL: Lethargic and oriented. Normal speech. A/P Problem List: (1) ELKIN (acute kidney injury) ICD Code: N17.9 - Acute kidney failure, unspecified Status: Acute (2) Acute pancreatitis ICD Code: K85.90 - Acute pancreatitis without necrosis or infection, unspecified Status: Acute (3) Failure to thrive Status: Acute (4) End-stage liver disease ICD Code: K72.90 - Hepatic failure, unspecified without coma Status: Chronic Assessment and Plan 37 y/o male with a history of End stage liver disease due to alcohol abuse, hepatorenal syndrome and chronic leukocytosis was brought to the ED by family for concerns of generalized weakness and abdominal pain. Failure to thrive Patient not eating or drinking well due to ESLD. S/p Dobbhoff placement by interventional radiology. Tube feeds have been started. - Consulted palliative care for ESLD. Assistance appreciated. - Continue tube feeds per nutrition recommendations. - Follow-up with speech therapy. - PT/ OT. - Will need home health care set up. ESLD Chronic. S/t alcohol abuse. Has not been drinking for the past few months. GI consult appreciated. - Resume home medications lactulose, pentoxifylline, vitamine B12 and rifaximin. - On ceftriaxone for possible SBP. - follow up with GI. Acute pancreatitis Abdominal CT reviewed and shows cirrhosis, ascites, calcified gallstones, and 3 small metallic densities seen in the gastric lumen and proximal to mid small bowel. Lipase has improved. - pain control and antiemetics as needed - Resume home pain medication, morphine IV for breakthrough. - ADAT. Acute kidney injury, creatine 2.0, baseline .86 Improving. - Hold Aldactone. Hyperkalemia Suspect due to ELKIN - trend potassium and hold home potassium supplements. DVT prophylaxis: SCDs Discharge Planning Await [facility] arrangement. Anticipate 1-2 days Problem Qualifiers (1) Acute pancreatitis: Qualified Codes: K85.90 - Acute pancreatitis without necrosis or infection, unspecified (2) Failure to thrive: Qualified Codes: R62.7 - Adult failure to thrive Edin Andrade DO February 17, 2018 10:47
--- NOTE | 2018-02-17 12:45 | HHI.GIFU ---
Subjective Remarks Pt is resting in bed accompanied by family, tolerating TF okay, some nausea and abd pain, tolerating some diet. No vomiting or bleeding (RobertBella GUITAR TEACHER) Objective Vitals I&O Vital Signs Date Time Temp Pulse Resp B/P (MAP) Pulse Ox O2 Delivery O2 Flow Rate FiO2 02/17/18 08:00 98.1 126 18 131/92 (105) 98 02/17/18 08:00 119 02/17/18 03:44 98.4 120 16 118/80 (93) 99 02/17/18 03:40 117 02/17/18 00:56 98.4 122 16 124/82 (96) 97 02/17/18 00:00 124 02/16/18 22:50 16 02/16/18 21:34 98.5 127 16 122/79 (93) 99 02/16/18 16:08 98.0 120 20 123/84 (97) 98 I/O 02/16/18 02/16/18 02/16/18 02/17/18 02/17/18 02/17/18 07:00 15:00 23:00 07:00 15:00 23:00 Intake Total 950 ml Output Total 350 ml Balance -350 ml 950 ml IV Total 950 ml Output Urine Total 350 ml Laboratory Laboratory Tests Test 02/17/18 05:45 White Blood Count 23.6 Red Blood Count 3.34 Hemoglobin 11.3 Hematocrit 34.4 Mean Corpuscular Volume 103.0 Mean Corpuscular Hemoglobin 33.9 Mean Corpuscular Hemoglobin Concent 32.9 Red Cell Distribution Width 16.5 Platelet Count 232 Mean Platelet Volume 9.7 Blood Urea Nitrogen 33 Creatinine 1.34 Random Glucose 135 Total Protein 5.6 Albumin 2.0 Calcium Level 8.8 Magnesium Level 1.8 Alkaline Phosphatase 185 Aspartate Amino Transf (AST/SGOT) 54 Alanine Aminotransferase (ALT/SGPT) 56 Total Bilirubin 14.6 Direct Bilirubin 11.1 Sodium Level 139 Potassium Level 3.9 Chloride Level 113 Carbon Dioxide Level 13.4 Anion Gap 13 Estimat Glomerular Filtration Rate 59 Indirect Bilirubin 3.5 Lipase 804 Imaging Last Impressions Abdomen X-Ray 02/17/18 0000 Signed Impressions: CONCLUSION: Feeding tube in distal duodenum. Abdomen Fluoroscopy 02/16/18 0000 Signed Impressions: CONCLUSION: 1. Uncomplicated Dobbhoff tube placement as above. Abdomen/Pelvis CT 02/14/18 0000 Signed Impressions: CONCLUSION: 1. Suspected cirrhotic appearance of the liver. 2. Moderate ascites. 3. Small calcified gallstones. 4. 3 small metallic densities are seen within the gastric lumen and proximal t o mid small bowel. These are of uncertain etiology. 5. Linear atelectasis or consolidation at the right lower lobe. Physical Exam HEENT: normocephalic; atraumatic; +jaundice. New Dobbhoff and secured clean dry and intact NECK: Neck is supple. CHEST: Low volume lung sounds with some diminished breath sounds at his bases but no obvious rhonchi CARDIAC: Rhythm regular ABDOMEN: Large, obese, taut, moderate distention, mild fluid wave noted, bowel sounds soft/active EXTREMITIES: No lower extremity, muscular wasting SKIN: Skin dry no rash; + jaundice. 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 (Bella Jones) Assessment and Plan Plan Assessment: - Cirrhosis secondary to ETOH abuse Pt well known to our service, seen both inpatient and in the clinic As per HPI- pt was having outpatient paracentesis and Dobhoff done, but he was extremely weak and could not sit up in wheelchair and asked for a stretcher- due to weakness he was advised to go to ER As per HPI mother is very persistent about aggressive care - Possible SBP- Started on Cipro 2 days ago - Poor nutrition- Pt with decreased appetite, has been previously started on Megace with some improvement but has had increasingly frequent nausea and emesis recently- PEG contraindicated given ascites and concern for SBP- pt started on Cipro 2 days ago in the clinic - Persistent leukocytosis- followed by Dr. Hahn- reports recent bone marrow biopsy 02-16 patient received Dobbhoff today, mother and father at his side no known complications. Patient is drowsy but does occasionally arouse a and answer a simple question. No obvious shortness of breath currently but abdomen continues to be moderately distended with mild fluid wave. No current nausea or vomiting noted, no fever. Current hemoglobin is stabilized at 11.2. Nutritional consult pending, palliative care working with patient and family (02-17) Patient tolerating TF okay, lipase with marked improvement 804 today, hh stable, wbc trending down LFTs stable Plan: Cont TF, Rocephin Monitor labs with special attention to any acute changes LFTs /hemoglobin palliative care on the case poor prognosis Further recommendations based on clinical course, from a GI standpoint patient could discharge from hospital and follow-up on an outpatient basis Pt has been seen and examined by myself and Dr. Lopez and this note is written on his behalf (Bella Jones) Physician Comments Patient seen and examined Agree with above Continue with current supportive care Monitor labs (Hiro Lopez MD) Bella Jones February 17, 2018 12:45 Hiro Lopez MD February 17, 2018 13:23
[2018-02-17] MEDS: ONDANSETRON ODT 4 MG TAB SL PRN (15:12)
[2018-02-17] MEDS ORDERED: METOCLOPRAMIDE HCL 10 MG/2 ML VIAL IV PUSH ONE (15:45)
[2018-02-18] VITALS (10 sets, daily range): BP systolic 111–138; BP diastolic 71–97; PULSE 113–123; RESP 16–20; TEMP 97.3–98.1; O2SAT 97–100
[2018-02-18] MEDS: ONDANSETRON ODT 4 MG TAB SL PRN ×3 (04:46→15:52)
[2018-02-18] MEDS: cefTRIAXone INJ 1,000 MG in SODIUM CHLORIDE 0.9% INJ 100 ML IV SCH ×2 (04:47→17:54)
[2018-02-18] MEDS: PENTOXIFYLLINE 400 MG CONTROLLED RELEASE TAB PO SCH ×3 (05:49→21:50)
[2018-02-18] MEDS: MIDODRINE 5 MG TAB PO SCH ×3 (05:49→17:54)
[2018-02-18] MEDS: FREE WATER G-TUBE SCH ×3 (05:49→21:50)
[2018-02-18] MEDS: RIFAXIMIN 200 MG TAB PO SCH ×3 (05:49→21:50)
[2018-02-18] MEDS: MORPHINE SULFATE 4 MG/ML INJ IV PUSH PRN ×3 (07:45→20:08)
[2018-02-18] MEDS: CHOLESTYRAMINE 4 GM PACKET PO SCH ×3 (08:00→15:43)
[2018-02-18] MEDS ORDERED: METOCLOPRAMIDE HCL 10 MG/2 ML VIAL IV PUSH ONE (08:15)
[2018-02-18] MEDS: CYANOCOBALAMIN 100 MCG TAB PO SCH (09:00)
[2018-02-18] MEDS: LACTULOSE SYRUP 20 GM/30 ML CUP PO SCH ×3 (09:00→17:54)
[2018-02-18] MEDS: CHOLECALCIFEROL (VIT D3) 1000 UNIT TAB PO SCH (09:00)
[2018-02-18] MEDS: PANTOPRAZOLE SOD 40 MG DELAYED RELEASE TAB PO SCH (09:00)
[2018-02-18] MEDS: FOLIC ACID 1 MG TAB PO SCH (09:00)
[2018-02-18] MEDS: SODIUM CHLORIDE 0.9% FLUSH 10 ML FLUSH IV FLUSH SCH ×2 (10:39→20:08)
[2018-02-18 11:03] LABS: BICARBONATE 13.4 MEQ/L (21.0-32.0); CALCIUM 8.4 MG/DL (8.5-10.1); CREATININE 1.2 MG/DL (0.60-1.30); DIRECT BILIRUBIN ADULT 11.5 MG/DL (0.0-0.2); MAGNESIUM 1.9 MG/DL (1.5-2.5)
[2018-02-18 11:06] LABS: TOTAL BILIRUBIN ADULT 14.5 MG/DL (0.2-1.0); TOTAL PROTEIN 5.9 GM/DL (6.4-8.2)
--- NOTE | 2018-02-18 13:35 | HHI.PR ---
Subjective Remarks The pt was upset that he still required the tube feeds. His family felt he was too weak to go home. The pt wanted to go home. He has been nauseous. His family was agreeable with pursuing SNF options if needed. Discussed with nursing. Objective Vitals Vital Signs Date Time Temp Pulse Resp B/P (MAP) Pulse Ox O2 Delivery O2 Flow Rate FiO2 02/18/18 12:00 97.4 113 20 111/79 (90) 100 02/18/18 08:30 97.5 120 20 116/71 (86) 97 02/18/18 07:50 120 02/18/18 03:51 97.6 123 16 138/89 (105) 98 02/18/18 03:29 123 02/18/18 00:22 98.1 120 16 135/97 (110) 99 02/18/18 00:00 118 02/17/18 20:13 98.1 123 16 129/86 (100) 99 02/17/18 20:00 122 02/17/18 16:00 98.0 122 18 122/92 (102) 98 02/17/18 15:00 111 I/O 02/17/18 02/17/18 02/17/18 02/18/18 02/18/18 02/18/18 07:00 15:00 23:00 07:00 15:00 23:00 Intake Total 950 ml Balance 950 ml IV Total 950 ml Result Diagram: 02/17/18 0545 02/18/18 1021 Imaging Last Impressions Abdomen X-Ray 02/17/18 0000 Signed Impressions: CONCLUSION: Feeding tube in distal duodenum. Abdomen Fluoroscopy 02/16/18 0000 Signed Impressions: CONCLUSION: 1. Uncomplicated Dobbhoff tube placement as above. Abdomen/Pelvis CT 02/14/18 0000 Signed Impressions: CONCLUSION: 1. Suspected cirrhotic appearance of the liver. 2. Moderate ascites. 3. Small calcified gallstones. 4. 3 small metallic densities are seen within the gastric lumen and proximal t o mid small bowel. These are of uncertain etiology. 5. Linear atelectasis or consolidation at the right lower lobe. Objective Remarks GENERAL: No distress. SKIN: Cool and dry. Dusky in color. HEAD: Atraumatic. Normocephalic. No temporal or scalp tenderness. EYES: Pupils equal round and reactive. CARDIOVASCULAR: Tachycardic without murmurs, gallops, or rubs. RESPIRATORY: Clear to auscultation. Breath sounds equal bilaterally. No wheezes , rales, or rhonchi. GASTROINTESTINAL: Abdomen soft, nontender, nondistended. No guarding. Dobbhoff in place. MUSCULOSKELETAL: Extremities without clubbing, cyanosis, or edema. NEUROLOGICAL: Lethargic and oriented. Normal speech. PSYCH: Flat affect. A/P Problem List: (1) ELKIN (acute kidney injury) ICD Code: N17.9 - Acute kidney failure, unspecified Status: Acute (2) Acute pancreatitis ICD Code: K85.90 - Acute pancreatitis without necrosis or infection, unspecified Status: Acute (3) Failure to thrive Status: Acute (4) End-stage liver disease ICD Code: K72.90 - Hepatic failure, unspecified without coma Status: Chronic Assessment and Plan 37 y/o male with a history of End stage liver disease due to alcohol abuse, hepatorenal syndrome and chronic leukocytosis was brought to the ED by family for concerns of generalized weakness and abdominal pain. Failure to thrive Patient not eating or drinking well due to ESLD. S/p Dobbhoff placement by interventional radiology. Tube feeds have been started. - Consulted palliative care for ESLD. Assistance appreciated. - Continue tube feeds per nutrition recommendations. Will try nocturnal feeds from 7-7. - Follow-up with speech therapy. - PT/ OT. Family feels pt is too weak to go home. Case management consult for possible SNF placement. ESLD Chronic. S/t alcohol abuse. Has not been drinking for the past few months. GI consult appreciated. - Resume home medications lactulose, pentoxifylline, vitamine B12 and rifaximin. - On ceftriaxone for possible SBP. - follow up with GI. Acute pancreatitis Abdominal CT reviewed and shows cirrhosis, ascites, calcified gallstones, and 3 small metallic densities seen in the gastric lumen and proximal to mid small bowel. Lipase has improved. - pain control and antiemetics as needed - Resume home pain medication, morphine IV for breakthrough. - ADAT. Acute kidney injury, creatine 2.0, baseline .86 Improving. - continue to hold Aldactone. Hyperkalemia Suspect due to ELKIN. Seems resolved. - hold home potassium supplements. DVT prophylaxis: SCDs Discharge Planning D/c with [facility] if family agreeable or d/c to SNF if possible Problem Qualifiers (1) Acute pancreatitis: Qualified Codes: K85.90 - Acute pancreatitis without necrosis or infection, unspecified (2) Failure to thrive: Qualified Codes: R62.7 - Adult failure to thrive Edin Andrade DO February 18, 2018 13:35
[2018-02-18] MEDS: hydrOXYzine HCL 50 MG TAB PO PRN (15:52)
[2018-02-18] MEDS: PROCHLORPERAZINE INJ 10 MG/2 ML VIAL IV PUSH PRN (20:08)
[2018-02-18] MEDS: SPIRONOLACTONE 100 MG TAB PO SCH (20:17)
[2018-02-18] MEDS: ALBUMIN 25% INJ 100 ML IV SCH (20:18)
[2018-02-19] VITALS (11 sets, daily range): BP systolic 121–145; BP diastolic 77–89; PULSE 109–117; RESP 17–20; TEMP 97.3–97.9; O2SAT 95–100
[2018-02-19] MEDS: FREE WATER G-TUBE SCH ×3 (05:33→21:37)
[2018-02-19] MEDS: cefTRIAXone INJ 1,000 MG in SODIUM CHLORIDE 0.9% INJ 100 ML IV SCH ×2 (05:33→18:57)
[2018-02-19] MEDS: RIFAXIMIN 200 MG TAB PO SCH ×3 (05:34→21:35)
[2018-02-19] MEDS: PENTOXIFYLLINE 400 MG CONTROLLED RELEASE TAB PO SCH ×3 (05:34→21:35)
[2018-02-19] MEDS: MIDODRINE 5 MG TAB PO SCH ×3 (06:29→18:58)
[2018-02-19] MEDS: MORPHINE SULFATE 4 MG/ML INJ IV PUSH PRN ×3 (07:08→21:35)
[2018-02-19 07:43] LABS: HEMATOCRIT 33.2 % (39.0-51.0); HEMOGLOBIN 11.2 GM/DL (13.0-17.0); MEAN CELL VOLUME 101.7 FL (80.0-100.0); MEAN CORPUSCULAR HEMOGLOBIN 34.5 PG (27.0-34.0); MEAN CORPUSCULAR HGB CONC 33.9 % (32.0-36.0); MEAN PLATELET VOLUME 9.7 FL (7.0-11.0); PLATELET COUNT 239 TH/MM3 (150-450); RED BLOOD COUNT 3.26 MIL/MM3 (4.50-5.90); RED CELL DISTRIBUTION WIDTH 16.5 % (11.6-17.2); WHITE BLOOD COUNT 26.1 TH/MM3 (4.0-11.0)
[2018-02-19 07:51] LABS: INTERNATIONAL NORMALIZED RATIO 2.2 RATIO; PROTHROMBIN TIME - PATIENT 22.7 SEC (9.8-11.6)
[2018-02-19 08:12] LABS: ALBUMIN 2.5 GM/DL (3.4-5.0); ALT (GPT) 62 U/L (12-78); AST (GOT) 53 U/L (15-37); BICARBONATE 11.6 MEQ/L (21.0-32.0); BLOOD UREA NITROGEN 32 MG/DL (7-18); CHLORIDE 105 MEQ/L (98-107); CREATININE 1.19 MG/DL (0.60-1.30); GLOMERULAR FILTRATION RATE 68 ML/MIN (>89); GLUCOSE,RANDOM 80 MG/DL (74-106); SODIUM (NA) 130 MEQ/L (136-145)
[2018-02-19] MEDS: CYANOCOBALAMIN 100 MCG TAB PO SCH (08:25)
[2018-02-19] MEDS: LACTULOSE SYRUP 20 GM/30 ML CUP PO SCH ×3 (08:25→18:58)
[2018-02-19] MEDS: ALBUMIN 25% INJ 100 ML IV SCH ×2 (08:25→21:35)
[2018-02-19] MEDS: PANTOPRAZOLE SOD 40 MG DELAYED RELEASE TAB PO SCH (08:25)
[2018-02-19] MEDS: FOLIC ACID 1 MG TAB PO SCH (08:25)
[2018-02-19] MEDS: CHOLESTYRAMINE 4 GM PACKET PO SCH ×3 (08:25→18:58)
[2018-02-19] MEDS: SPIRONOLACTONE 100 MG TAB PO SCH (08:25)
[2018-02-19] MEDS: CHOLECALCIFEROL (VIT D3) 1000 UNIT TAB PO SCH (08:25)
[2018-02-19] MEDS: SODIUM CHLORIDE 0.9% FLUSH 10 ML FLUSH IV FLUSH SCH ×2 (08:26→21:36)
[2018-02-19 08:38] LABS: ALKALINE PHOSPHATASE 207 U/L (45-117); TOTAL BILIRUBIN ADULT 16.9 MG/DL (0.2-1.0); TOTAL PROTEIN 6.4 GM/DL (6.4-8.2)
--- NOTE | 2018-02-19 08:40 | HHI.PR ---
Subjective Remarks in no acute distress. denies pain. no fever. reportedly dubhoff was not functional and it was removed. Objective Vitals Vital Signs Date Time Temp Pulse Resp B/P (MAP) Pulse Ox O2 Delivery O2 Flow Rate FiO2 02/19/18 04:00 97.8 117 17 128/84 (99) 95 02/19/18 04:00 Room Air 02/19/18 03:59 110 02/19/18 03:17 18 02/19/18 00:00 97.4 113 19 145/77 (99) 98 02/19/18 00:00 Room Air 02/19/18 00:00 115 02/18/18 21:50 18 02/18/18 20:15 Room Air 02/18/18 20:00 97.5 117 18 119/81 (94) 98 02/18/18 19:59 116 02/18/18 18:25 Room Air 02/18/18 14:35 97.3 116 20 124/75 (91) 99 02/18/18 12:00 97.4 113 20 111/79 (90) 100 I/O 02/18/18 02/18/18 02/18/18 02/19/18 02/19/18 02/19/18 07:00 15:00 23:00 07:00 15:00 23:00 Intake Total 100 ml 240 ml 100 ml Output Total 500 ml Balance 100 ml -260 ml 100 ml Intake Oral 240 ml IV Total 100 ml 100 ml Output Urine Total 500 ml # Bowel Movements 0 Result Diagram: 02/19/18 0707 02/19/18 0707 Imaging Last Impressions Abdomen X-Ray 02/17/18 0000 Signed Impressions: CONCLUSION: Feeding tube in distal duodenum. Abdomen Fluoroscopy 02/16/18 0000 Signed Impressions: CONCLUSION: 1. Uncomplicated Dobbhoff tube placement as above. Abdomen/Pelvis CT 02/14/18 0000 Signed Impressions: CONCLUSION: 1. Suspected cirrhotic appearance of the liver. 2. Moderate ascites. 3. Small calcified gallstones. 4. 3 small metallic densities are seen within the gastric lumen and proximal t o mid small bowel. These are of uncertain etiology. 5. Linear atelectasis or consolidation at the right lower lobe. Objective Remarks GENERAL: This is a well-nourished, well-developed patient, in no apparent distress. CARDIOVASCULAR: Regular rate and regular rhythm without murmurs, gallops, or rubs. RESPIRATORY: Clear to auscultation. Breath sounds equal bilaterally. No wheezes , rales, or rhonchi. GASTROINTESTINAL: Abdomen soft, non-tender,distended. Normal, active bowel sounds MUSCULOSKELETAL: Extremities without clubbing, cyanosis, or edema. NEURO: Alert & Oriented x4 to person, place, time, situation. Moves all ext x4 Medications and IVs Inpatient Medications Albumin Human 100 ml @ 60 mls/hr Q12H IV Last administered on 02/18/18 20:18 ; Start 02/18/18 at 20:00; Stop 02/21/18 at 19:59 Bisacodyl (Dulcolax Supp) 10 mg DAILY PRN RECTAL SEVERE CONSITIPATION; Start at 20:15 Ceftriaxone Sodium 1000 mg/ Sodium Chloride 100 ml @ 200 mls/hr Q12H IV Last administered on 02/19/18 05:33; Start 02/15/18 at 17:00 Cholecalciferol (Vitamin D3) 1,000 units DAILY PO Last administered on 09:01; Start 02/15/18 at 09:00 Cholestyramine Resin (Questran 4 Gm Pkt) 4 gm TIDAC PO Last administered on 17:29; Start 02/15/18 at 08:00 Cyanocobalamin (Vitamin B12) 100 mcg DAILY PO Last administered on 02/17/18 09 :00; Start 02/15/18 at 09:00 Dextrose/Sodium Chloride 1,000 ml @ 100 mls/hr Q10H IV Last administered on at 17:05; Start 02/14/18 at 21:45; Stop 02/17/18 at 10:46; Status DC Folic Acid (Folate) 1 mg DAILY PO Last administered on 02/17/18 09:00; Start 02/15/18 at 09:00 Hydroxyzine HCl (Atarax) 50 mg Q6H PRN PO itching Last administered on 15:52; Start 02/14/18 at 21:00 Lactulose (Lactulose Liq) 40 ml TID PO Last administered on 02/18/18at 17:54; Start 02/15/18 at 09:00 Magnesium Hydroxide (Milk Of Magnesia Liq) 30 ml Q12H PRN PO Mild constipation ; Start 02/14/18 at 20:15 Metoclopramide HCl (Reglan Inj) 5 mg ONCE ONCE IV PUSH Last administered on at 09:27; Start 02/18/18 at 08:15; Stop 02/18/18 at 08:16; Status DC Midodrine (Proamatine) 2.5 mg TID@07,12,17 PO Last administered on 02/19/18at 06 :29; Start 02/15/18 at 07:00 Miscellaneous (Pill Splitter) 1 ea UNSCH PRN OTHER SEE LABEL COMMENTS; Start at 21:00 Morphine Sulfate (Morphine Inj) 2 mg Q3H PRN IV PUSH BREAKTHROUGH PAIN Last administered on 02/19/18at 07:08; Start 02/14/18 at 21:45 Naloxone HCl (Narcan Inj) 0.4 mg UNSCH PRN IV PUSH SEE LABEL COMMENTS; Start at 20:15 Ondansetron HCl (Zofran Odt) 4 mg Q6H PRN SL nausea Last administered on at 15:52; Start 02/14/18 at 21:45; Stop 02/18/18 at 17:18; Status DC Ondansetron HCl (Zofran Inj) 4 mg Q6H PRN IVP NAUSEA OR VOMITING; Start at 20:15; Stop 02/14/18 at 21:40; Status DC Oxycodone HCl (Roxicodone) 5 mg Q4H PRN PO PAIN Last administered on 02/19/18at 05:34; Start 02/14/18 at 21:00 Pantoprazole Sodium (Protonix) 40 mg DAILY PO Last administered on 02/17/18at 09 :01; Start 02/15/18 at 09:00 Pentoxifylline (TRENtal SR) 400 mg Q8H PO Last administered on 02/19/18at 05:34 ; Start 02/14/18 at 22:00 Potassium Chloride (KCl) 20 meq BID PO ; Start 02/14/18 at 21:00; Stop 02/14/18 at 21:14; Status DC Prochlorperazine Edisylate (Compazine Inj) 10 mg Q8H PRN IV PUSH nausea Last administered on 02/18/18at 20:08; Start 02/18/18 at 17:30 Rifaximin (Xifaxan) 400 mg Q8HR PO Last administered on 02/19/18at 05:34; Start 02/14/18 at 22:00 Sennosides (Senokot) 17.2 mg Q12H PRN PO Moderate constipation; Start 02/14/18 at 20:15 Sodium Chloride (NS Flush) 2 ml BID IV FLUSH Last administered on 02/18/18at 20: 08; Start 02/14/18 at 21:00 Spironolactone (Aldactone) 100 mg DAILY PO Last administered on 02/18/18at 20:17 ; Start 02/18/18 at 19:30 Water (Free Water) VOLUME OF WATER: (300) ML Q8HR G-TUBE Last administered on at 15:24; Start 02/17/18 at 14:00 A/P Problem List: (1) ELKIN (acute kidney injury) ICD Code: N17.9 - Acute kidney failure, unspecified Status: Acute (2) Acute pancreatitis ICD Code: K85.90 - Acute pancreatitis without necrosis or infection, unspecified Status: Acute (3) Failure to thrive Status: Acute (4) End-stage liver disease ICD Code: K72.90 - Hepatic failure, unspecified without coma Status: Chronic Assessment and Plan Failure to thrive Patient not eating or drinking well due to ESLD. S/p Dobbhoff placement by interventional radiology. however the tube was not functional and it was removed- now the patient stated that he does not want the tube to be replaced unless ' its' done under anaesthesia'. - Consulted palliative care for ESLD. Assistance appreciated. - will consult psychiatric np for calorie count. - Follow-up with speech therapy. - PT/ OT. Family feels pt is too weak to go home. Case management consult for possible SNF placement. ESLD Chronic. S/t alcohol abuse. Has not been drinking for the past few months. GI consult appreciated. - Resumed home medications lactulose, pentoxifylline, vitamine B12 and rifaximin. - On ceftriaxone for possible SBP. - follow up with GI. Acute pancreatitis Abdominal CT reviewed and shows cirrhosis, ascites, calcified gallstones, and 3 small metallic densities seen in the gastric lumen and proximal to mid small bowel. Lipase has improved. - pain control and antiemetics as needed - Resumed home pain medication, morphine IV for breakthrough. - ADAT. Acute kidney injury, creatine 2.0, baseline .86 Improving. - continue to hold Aldactone. Hyperkalemia Suspect due to ELKIN. Seems resolved. - hold home potassium supplements. Discharge Planning overall poor prognosis- patient does not want to resume tube feeding- will consult psychiatric np for calorie count- will consider hospice if the patient doesn't want any further treatment and fails the calorie count. palliative care following. Problem Qualifiers (1) Acute pancreatitis: Qualified Codes: K85.90 - Acute pancreatitis without necrosis or infection, unspecified (2) Failure to thrive: Qualified Codes: R62.7 - Adult failure to thrive Mell Cunha MD February 19, 2018 08:40
[2018-02-19] MEDS: hydrOXYzine HCL 50 MG TAB PO PRN (19:09)
--- NOTE | 2018-02-19 22:47 | HHI.GIFU ---
Subjective Remarks Comfortable in bed more alert wanting to go home but somewhat confused Objective Vitals I&O Vital Signs Date Time Temp Pulse Resp B/P (MAP) Pulse Ox O2 Delivery O2 Flow Rate FiO2 02/19/18 20:00 97.9 117 19 136/89 (105) 100 02/19/18 17:30 Room Air 02/19/18 16:14 97.7 111 20 129/89 (102) 100 02/19/18 16:00 112 02/19/18 13:00 Room Air 02/19/18 12:38 97.3 110 18 121/78 (92) 98 02/19/18 12:00 109 02/19/18 09:00 Room Air 02/19/18 08:34 97.8 111 18 123/87 (99) 99 02/19/18 08:00 112 02/19/18 04:00 97.8 117 17 128/84 (99) 95 02/19/18 04:00 Room Air 02/19/18 03:59 110 02/19/18 03:17 18 02/19/18 00:00 97.4 113 19 145/77 (99) 98 02/19/18 00:00 Room Air 02/19/18 00:00 115 I/O 02/18/18 02/18/18 02/18/18 02/19/18 02/19/18 02/19/18 07:00 15:00 23:00 07:00 15:00 23:00 Intake Total 100 ml 240 ml 100 ml 600 ml Output Total 500 ml 300 ml Balance 100 ml -260 ml 100 ml 300 ml Intake Oral 240 ml 600 ml IV Total 100 ml 100 ml Output Urine Total 500 ml 300 ml # Bowel Movements 0 1 Laboratory Laboratory Tests Test 02/19/18 07:07 White Blood Count 26.1 Red Blood Count 3.26 Hemoglobin 11.2 Hematocrit 33.2 Mean Corpuscular Volume 101.7 Mean Corpuscular Hemoglobin 34.5 Mean Corpuscular Hemoglobin Concent 33.9 Red Cell Distribution Width 16.5 Platelet Count 239 Mean Platelet Volume 9.7 Prothrombin Time 22.7 Prothromb Time International Ratio 2.2 Blood Urea Nitrogen 32 Creatinine 1.19 Random Glucose 80 Total Protein 6.4 Albumin 2.5 Calcium Level 9.0 Alkaline Phosphatase 207 Aspartate Amino Transf (AST/SGOT) 53 Alanine Aminotransferase (ALT/SGPT) 62 Total Bilirubin 16.9 Sodium Level 130 Potassium Level 4.4 Chloride Level 105 Carbon Dioxide Level 11.6 Anion Gap 13 Estimat Glomerular Filtration Rate 68 Physical Exam HEENT: normocephalic; atraumatic; +jaundice. New Dobbhoff and secured clean dry and intact NECK: Neck is supple. CHEST: Low volume lung sounds with some diminished breath sounds at his bases but no obvious rhonchi CARDIAC: Rhythm regular ABDOMEN: Large, obese, taut, moderate distention, mild fluid wave noted, bowel sounds soft/active EXTREMITIES: No lower extremity, muscular wasting SKIN: Skin dry no rash; + jaundice. ENVIRONMENTAL INSPECTOR: Lethargic Assessment and Plan Plan Assessment: - Cirrhosis secondary to ETOH abuse Pt well known to our service, seen both inpatient and in the clinic As per HPI- pt was having outpatient paracentesis and Dobhoff done, but he was extremely weak and could not sit up in wheelchair and asked for a stretcher- due to weakness he was advised to go to ER As per HPI mother is very persistent about aggressive care - Possible SBP- Started on Cipro 2 days ago - Poor nutrition- Pt with decreased appetite, has been previously started on Megace with some improvement but has had increasingly frequent nausea and emesis recently- PEG contraindicated given ascites and concern for SBP- pt started on Cipro 2 days ago in the clinic - Persistent leukocytosis- followed by Dr. Hahn- reports recent bone marrow biopsy 02-16 patient received Dobbhoff today, mother and father at his side no known complications. Patient is drowsy but does occasionally arouse a and answer a simple question. No obvious shortness of breath currently but abdomen continues to be moderately distended with mild fluid wave. No current nausea or vomiting noted, no fever. Current hemoglobin is stabilized at 11.2. Nutritional consult pending, palliative care working with patient and family (02-17) Patient tolerating TF okay, lipase with marked improvement 804 today, hh stable, wbc trending down LFTs stable Plan: Patient encouraged to take nutritional supplements Rocephin and in spite of that the white count continues to go up and this is of unclear significance Monitor labs with special attention to any acute changes LFTs /hemoglobin palliative care on the case poor prognosis Further recommendations based on clinical course, from a GI standpoint patient could discharge from hospital and follow-up on an outpatient basis Hiro Lopez MD February 19, 2018 22:47
[2018-02-20] VITALS (10 sets, daily range): BP systolic 110–141; BP diastolic 71–98; PULSE 108–124; RESP 17–20; TEMP 97.5–98.3; O2SAT 99–100
[2018-02-20] MEDS: MORPHINE SULFATE 4 MG/ML INJ IV PUSH PRN ×4 (01:37→21:00)
[2018-02-20] MEDS: cefTRIAXone INJ 1,000 MG in SODIUM CHLORIDE 0.9% INJ 100 ML IV SCH ×2 (04:02→15:15)
[2018-02-20] MEDS: FREE WATER G-TUBE SCH ×3 (06:00→21:00)
[2018-02-20] MEDS: PENTOXIFYLLINE 400 MG CONTROLLED RELEASE TAB PO SCH ×3 (06:01→20:59)
[2018-02-20] MEDS: RIFAXIMIN 200 MG TAB PO SCH ×3 (06:01→20:59)
[2018-02-20] MEDS: hydrOXYzine HCL 50 MG TAB PO PRN ×3 (06:02→20:58)
[2018-02-20] MEDS: MIDODRINE 5 MG TAB PO SCH ×3 (06:02→15:15)
[2018-02-20] MEDS: CYANOCOBALAMIN 100 MCG TAB PO SCH (09:00)
[2018-02-20] MEDS: ALBUMIN 25% INJ 100 ML IV SCH ×2 (09:48→20:59)
[2018-02-20] MEDS: LACTULOSE SYRUP 20 GM/30 ML CUP PO SCH ×3 (09:49→17:39)
[2018-02-20] MEDS: PANTOPRAZOLE SOD 40 MG DELAYED RELEASE TAB PO SCH (09:49)
[2018-02-20] MEDS: CHOLECALCIFEROL (VIT D3) 1000 UNIT TAB PO SCH (09:49)
[2018-02-20] MEDS: FOLIC ACID 1 MG TAB PO SCH (09:49)
[2018-02-20] MEDS: SPIRONOLACTONE 100 MG TAB PO SCH (09:49)
[2018-02-20] MEDS: CHOLESTYRAMINE 4 GM PACKET PO SCH ×3 (09:49→15:16)
[2018-02-20] MEDS: SODIUM CHLORIDE 0.9% FLUSH 10 ML FLUSH IV FLUSH SCH ×2 (09:51→21:00)
--- NOTE | 2018-02-20 11:24 | HHI.PR ---
Subjective Remarks ill looking- but in no acute distress. has some generalized abdominal pain. no fever. family at the bedside. Objective Vitals Vital Signs Date Time Temp Pulse Resp B/P (MAP) Pulse Ox O2 Delivery O2 Flow Rate FiO2 02/20/18 08:08 97.8 112 17 126/91 (103) 100 02/20/18 08:00 108 02/20/18 08:00 Room Air 02/20/18 06:12 20 02/20/18 04:09 112 02/20/18 04:00 97.9 112 18 141/80 (100) 100 02/20/18 01:22 19 02/20/18 00:19 109 02/20/18 00:00 97.5 112 19 120/89 (99) 99 02/19/18 21:35 Room Air 02/19/18 20:14 110 02/19/18 20:00 97.9 117 19 136/89 (105) 100 02/19/18 17:30 Room Air 02/19/18 16:14 97.7 111 20 129/89 (102) 100 02/19/18 16:00 112 02/19/18 13:00 Room Air 02/19/18 12:38 97.3 110 18 121/78 (92) 98 02/19/18 12:00 109 I/O 02/19/18 02/19/18 02/19/18 02/20/18 02/20/18 02/20/18 07:00 15:00 23:00 07:00 15:00 23:00 Intake Total 240 ml 100 ml 700 ml 100 ml Output Total 500 ml 300 ml 680 ml Balance -260 ml 100 ml 400 ml -580 ml Intake Oral 240 ml 600 ml IV Total 100 ml 100 ml 100 ml Output Urine Total 500 ml 300 ml 680 ml # Bowel Movements 0 1 Result Diagram: 02/19/18 0707 02/19/18 0707 Imaging Last Impressions Abdomen X-Ray 02/17/18 0000 Signed Impressions: CONCLUSION: Feeding tube in distal duodenum. Abdomen Fluoroscopy 02/16/18 0000 Signed Impressions: CONCLUSION: 1. Uncomplicated Dobbhoff tube placement as above. Abdomen/Pelvis CT 02/14/18 0000 Signed Impressions: CONCLUSION: 1. Suspected cirrhotic appearance of the liver. 2. Moderate ascites. 3. Small calcified gallstones. 4. 3 small metallic densities are seen within the gastric lumen and proximal t o mid small bowel. These are of uncertain etiology. 5. Linear atelectasis or consolidation at the right lower lobe. Objective Remarks GENERAL: This is a well-nourished, well-developed patient, in no apparent distress. CARDIOVASCULAR: Regular rate and regular rhythm without murmurs, gallops, or rubs. RESPIRATORY: Clear to auscultation. Breath sounds equal bilaterally. No wheezes , rales, or rhonchi. GASTROINTESTINAL: Abdomen soft, non-tender,distended. Normal, active bowel sounds MUSCULOSKELETAL: Extremities without clubbing, cyanosis, or edema. NEURO: Alert & Oriented x4 to person, place, time, situation. Moves all ext x4 Medications and IVs Inpatient Medications Albumin Human 100 ml @ 60 mls/hr Q12H IV Last administered on 02/20/18 09:48 ; Start 02/18/18 at 20:00; Stop 02/21/18 at 19:59 Bisacodyl (Dulcolax Supp) 10 mg DAILY PRN RECTAL SEVERE CONSITIPATION; Start at 20:15 Ceftriaxone Sodium 1000 mg/ Sodium Chloride 100 ml @ 200 mls/hr Q12H IV Last administered on 02/20/18 04:02; Start 02/15/18 at 17:00 Cholecalciferol (Vitamin D3) 1,000 units DAILY PO Last administered on 09:49; Start 02/15/18 at 09:00 Cholestyramine Resin (Questran 4 Gm Pkt) 4 gm TIDAC PO Last administered on 09:49; Start 02/15/18 at 08:00 Cyanocobalamin (Vitamin B12) 100 mcg DAILY PO Last administered on 02/20/18 09 :00; Start 02/15/18 at 09:00 Dextrose/Sodium Chloride 1,000 ml @ 100 mls/hr Q10H IV Last administered on 17:05; Start 02/14/18 at 21:45; Stop 02/17/18 at 10:46; Status DC Folic Acid (Folate) 1 mg DAILY PO Last administered on 02/20/18 09:49; Start 02/15/18 at 09:00 Hydroxyzine HCl (Atarax) 50 mg Q6H PRN PO itching Last administered on 06:02; Start 02/14/18 at 21:00 Lactulose (Lactulose Liq) 40 ml TID PO Last administered on 02/20/18 09:49; Start 02/15/18 at 09:00 Magnesium Hydroxide (Milk Of Magnesia Liq) 30 ml Q12H PRN PO Mild constipation ; Start 02/14/18 at 20:15 Metoclopramide HCl (Reglan Inj) 5 mg ONCE ONCE IV PUSH Last administered on at 09:27; Start 02/18/18 at 08:15; Stop 02/18/18 at 08:16; Status DC Midodrine (Proamatine) 2.5 mg TID@07,12,17 PO Last administered on 02/20/18 06 :02; Start 02/15/18 at 07:00 Miscellaneous (Pill Splitter) 1 ea UNSCH PRN OTHER SEE LABEL COMMENTS; Start at 21:00 Morphine Sulfate (Morphine Inj) 2 mg Q3H PRN IV PUSH BREAKTHROUGH PAIN Last administered on 02/20/18 06:07; Start 02/14/18 at 21:45 Naloxone HCl (Narcan Inj) 0.4 mg UNSCH PRN IV PUSH SEE LABEL COMMENTS; Start at 20:15 Ondansetron HCl (Zofran Odt) 4 mg Q6H PRN SL nausea Last administered on at 15:52; Start 02/14/18 at 21:45; Stop 02/18/18 at 17:18; Status DC Ondansetron HCl (Zofran Inj) 4 mg Q6H PRN IVP NAUSEA OR VOMITING; Start at 20:15; Stop 02/14/18 at 21:40; Status DC Oxycodone HCl (Roxicodone) 5 mg Q4H PRN PO PAIN Last administered on 02/20/18 04:01; Start 02/14/18 at 21:00 Pantoprazole Sodium (Protonix) 40 mg DAILY PO Last administered on 02/20/18 09 :49; Start 02/15/18 at 09:00 Pentoxifylline (TRENtal SR) 400 mg Q8H PO Last administered on 5/28/18at 06:01 ; Start 02/14/18 at 22:00 Potassium Chloride (KCl) 20 meq BID PO ; Start 02/14/18 at 21:00; Stop 02/14/18 at 21:14; Status DC Prochlorperazine Edisylate (Compazine Inj) 10 mg Q8H PRN IV PUSH nausea Last administered on 02/18/18at 20:08; Start 02/18/18 at 17:30 Rifaximin (Xifaxan) 400 mg Q8HR PO Last administered on 02/20/18at 06:01; Start 02/14/18 at 22:00 Sennosides (Senokot) 17.2 mg Q12H PRN PO Moderate constipation; Start 02/14/18 at 20:15 Sodium Chloride (NS Flush) 2 ml BID IV FLUSH Last administered on 02/20/18at 09: 51; Start 02/14/18 at 21:00 Spironolactone (Aldactone) 100 mg DAILY PO Last administered on 02/20/18at 09:49 ; Start 02/18/18 at 19:30 Water (Free Water) VOLUME OF WATER: (300) ML Q8HR G-TUBE Last administered on at 15:24; Start 02/17/18 at 14:00 A/P Problem List: (1) ELKIN (acute kidney injury) ICD Code: N17.9 - Acute kidney failure, unspecified Status: Acute (2) Acute pancreatitis ICD Code: K85.90 - Acute pancreatitis without necrosis or infection, unspecified Status: Acute (3) Failure to thrive Status: Acute (4) End-stage liver disease ICD Code: K72.90 - Hepatic failure, unspecified without coma Status: Chronic Assessment and Plan Failure to thrive Patient not eating or drinking well due to ESLD. S/p Dobbhoff placement by interventional radiology. however the tube was not functional and it was removed- d/w the patient and family again today; now the patient is agreeable- will reconsult IR for dobbhoff replacement. - Consulted palliative care for ESLD. Assistance appreciated. - centerless grinder operator consulted for calorie count. - Follow-up with speech therapy. - PT/ OT. Family feels pt is too weak to go home. Case management consult for possible SNF placement. ESLD Chronic. S/t alcohol abuse. Has not been drinking for the past few months. GI consult appreciated. - Resumed home medications lactulose, pentoxifylline, vitamine B12 and rifaximin. - On ceftriaxone for possible SBP. - GI f/u appreciated and recommended outpatient f/u. Acute pancreatitis Abdominal CT reviewed and shows cirrhosis, ascites, calcified gallstones, and 3 small metallic densities seen in the gastric lumen and proximal to mid small bowel. Lipase has improved. - pain control and antiemetics as needed - Resumed home pain medication, morphine IV for breakthrough. - ADAT. Acute kidney injury, creatine 2.0, baseline .86 Improving. - continue to hold Aldactone. Hyperkalemia Suspect due to ELKIN. Seems resolved. - hold home potassium supplements. Discharge Planning overall poor prognosis- dc planning; home within the next day or two- Problem Qualifiers (1) Acute pancreatitis: Qualified Codes: K85.90 - Acute pancreatitis without necrosis or infection, unspecified (2) Failure to thrive: Qualified Codes: R62.7 - Adult failure to thrive Mell Cunha MD February 20, 2018 11:24
--- NOTE | 2018-02-20 13:51 | HHI.GIFU ---
Subjective Remarks Pt resting in bed, mother at bedside Has been able to tolerate some PO intake Denies any continued emesis (Ava Santos) Objective Vitals I&O Vital Signs Date Time Temp Pulse Resp B/P (MAP) Pulse Ox O2 Delivery O2 Flow Rate FiO2 02/20/18 12:08 98.3 112 19 139/98 (112) 99 02/20/18 08:08 97.8 112 17 126/91 (103) 100 02/20/18 08:00 108 02/20/18 08:00 Room Air 02/20/18 06:12 20 02/20/18 04:09 112 02/20/18 04:00 97.9 112 18 141/80 (100) 100 02/20/18 01:22 19 02/20/18 00:19 109 02/20/18 00:00 97.5 112 19 120/89 (99) 99 02/19/18 21:35 Room Air 02/19/18 20:14 110 02/19/18 20:00 97.9 117 19 136/89 (105) 100 02/19/18 17:30 Room Air 02/19/18 16:14 97.7 111 20 129/89 (102) 100 02/19/18 16:00 112 I/O 02/19/18 02/19/18 02/19/18 02/20/18 02/20/18 02/20/18 07:00 15:00 23:00 07:00 15:00 23:00 Intake Total 240 ml 100 ml 700 ml 100 ml Output Total 500 ml 300 ml 680 ml Balance -260 ml 100 ml 400 ml -580 ml Intake Oral 240 ml 600 ml IV Total 100 ml 100 ml 100 ml Output Urine Total 500 ml 300 ml 680 ml # Bowel Movements 0 1 Imaging Last Impressions Abdomen X-Ray 02/17/18 0000 Signed Impressions: CONCLUSION: Feeding tube in distal duodenum. Abdomen Fluoroscopy 02/16/18 0000 Signed Impressions: CONCLUSION: 1. Uncomplicated Dobbhoff tube placement as above. Abdomen/Pelvis CT 02/14/18 0000 Signed Impressions: CONCLUSION: 1. Suspected cirrhotic appearance of the liver. 2. Moderate ascites. 3. Small calcified gallstones. 4. 3 small metallic densities are seen within the gastric lumen and proximal t o mid small bowel. These are of uncertain etiology. 5. Linear atelectasis or consolidation at the right lower lobe. Physical Exam HEENT: Normocephalic; atraumatic, (+) icterus CHEST: Even/unlabored CARDIAC: RRR ABDOMEN: Distended, soft, nontender, bowel sounds active EXTREMITIES: No lower extremity, muscular wasting SKIN: (+) jaundice EVENT MARKETING ASSISTANT: Lethargic (Ava Santos) Assessment and Plan Plan Assessment: - Cirrhosis secondary to ETOH abuse Pt well known to our service, seen both inpatient and in the clinic As per HPI- pt was having outpatient paracentesis and Dobhoff done, but he was extremely weak and could not sit up in wheelchair and asked for a stretcher- due to weakness he was advised to go to ER As per HPI mother is very persistent about aggressive care - Possible SBP- Started on Cipro 2 days ago - Poor nutrition- Pt with decreased appetite, has been previously started on Megace with some improvement but has had increasingly frequent nausea and emesis recently- PEG contraindicated given ascites and concern for SBP- pt started on Cipro 2 days ago in the clinic - Persistent leukocytosis- followed by Dr. Hahn- reports recent bone marrow biopsy S/P Dobhoff which reportedly became blocked and was removed, initially patient refused replacement, he is now agreeable (02/20) No significant changes over night, pt agreeable to have Dobbhoff placed, will consult IR Plan: IR consult for Dobbhoff placement Dietary following Continue supportive care and home medication Spironolactone, Lactulose, Protonix, Midodrine, Xifaxan, Trental Remains on Rocephin, increase in leukocytosis- as noted above hematology had done bone marrow biopsy, unsure of results Further recommendations based on clinical course Pt has been seen and examined by myself and Dr. Markham and this note is written on his behalf (Ava Santos) Physician Comments Seen and examined with REINIER, repeat DBT placement planned for tomorrow. Rifaximin/lactulose for encephalopathy. Swartz in progress for transplant evaluation at [place]. Family working on getting medicaid. (Tamia Markham MD) Ava Santos February 20, 2018 13:51 Tamia Markham MD February 20, 2018 17:35
[2018-02-20] MEDS: PROCHLORPERAZINE INJ 10 MG/2 ML VIAL IV PUSH PRN (23:33)
[2018-02-21] VITALS (9 sets, daily range): BP systolic 111–135; BP diastolic 58–91; PULSE 114–120; RESP 18–22; TEMP 97.3–98.6; O2SAT 99–100
[2018-02-21] MEDS: cefTRIAXone INJ 1,000 MG in SODIUM CHLORIDE 0.9% INJ 100 ML IV SCH ×2 (03:29→18:04)
[2018-02-21] MEDS: FREE WATER G-TUBE SCH ×3 (05:02→22:00)
[2018-02-21 05:30] LABS: AUTOMATED NEUTROPHIL # 17.9 TH/MM3 (1.8-7.7); BASOPHIL # 0.1 TH/MM3 (0-0.2); BASOPHIL % 0.5 % (0.0-2.0); EOSINOPHIL # 0.3 TH/MM3 (0-0.4); EOSINOPHIL % 1.4 % (0.0-4.0); HEMATOCRIT 30.2 % (39.0-51.0); HEMOGLOBIN 10.4 GM/DL (13.0-17.0); LYMPH % 7.7 % (9.0-44.0); LYMPHOCYTE # 1.7 TH/MM3 (1.0-4.8); MEAN CELL VOLUME 100.7 FL (80.0-100.0); MEAN CORPUSCULAR HEMOGLOBIN 34.5 PG (27.0-34.0); MEAN CORPUSCULAR HGB CONC 34.3 % (32.0-36.0); MEAN PLATELET VOLUME 9.1 FL (7.0-11.0); MONO % 8.7 % (0.0-8.0); MONOCYTE # 1.9 TH/MM3 (0-0.9); NEUT % 81.7 % (16.0-70.0); PLATELET COUNT 191 TH/MM3 (150-450); RED CELL DISTRIBUTION WIDTH 16.5 % (11.6-17.2); WHITE BLOOD COUNT 21.9 TH/MM3 (4.0-11.0)
[2018-02-21 05:55] LABS: BICARBONATE 12.9 MEQ/L (21.0-32.0); CALCIUM 9.3 MG/DL (8.5-10.1); CREATININE 0.92 MG/DL (0.60-1.30); MAGNESIUM 1.7 MG/DL (1.5-2.5)
[2018-02-21] MEDS: hydrOXYzine HCL 50 MG TAB PO PRN ×3 (06:06→17:45)
[2018-02-21] MEDS: MIDODRINE 5 MG TAB PO SCH ×3 (06:06→17:45)
[2018-02-21] MEDS: PENTOXIFYLLINE 400 MG CONTROLLED RELEASE TAB PO SCH ×3 (06:06→22:18)
[2018-02-21] MEDS: RIFAXIMIN 200 MG TAB PO SCH ×3 (06:06→22:18)
[2018-02-21 08:59] LABS: BANDS 13 % (0-6); LYMPHOCYTES 9 % (9-44); METAMYELOCYTES 1 % (0-1); MONOCYTES 5 % (0-8); MYELOCYTES 1 % (0-0); NEUTROPHIL # MANUAL DIFF 18.8 TH/MM3 (1.8-7.7); POLYS (SEG NEUTROPHILS) 71 % (16-70); TARGET CELLS 1+ (NORMAL)
[2018-02-21] MEDS: CYANOCOBALAMIN 100 MCG TAB PO SCH (09:00)
[2018-02-21 09:18] LABS: ACANTHOCYTES 1+ (NORMAL)
[2018-02-21] MEDS: CHOLESTYRAMINE 4 GM PACKET PO SCH ×3 (09:29→17:46)
[2018-02-21] MEDS: ALBUMIN 25% INJ 100 ML IV SCH (09:29)
[2018-02-21] MEDS: LACTULOSE SYRUP 20 GM/30 ML CUP PO SCH ×3 (09:30→17:46)
[2018-02-21] MEDS: PANTOPRAZOLE SOD 40 MG DELAYED RELEASE TAB PO SCH (09:30)
[2018-02-21] MEDS: CHOLECALCIFEROL (VIT D3) 1000 UNIT TAB PO SCH (09:31)
[2018-02-21] MEDS: SPIRONOLACTONE 100 MG TAB PO SCH (09:31)
[2018-02-21] MEDS: FOLIC ACID 1 MG TAB PO SCH (09:31)
[2018-02-21] MEDS: SODIUM CHLORIDE 0.9% FLUSH 10 ML FLUSH IV FLUSH SCH ×2 (09:33→21:00)
--- NOTE | 2018-02-21 09:49 | HHI.PR ---
Subjective Remarks in no acute distress. mildly lethargic but easily arousable. awaiting dobhoff tube placement. d/w the RN and no acute issues over night. Objective Vitals Vital Signs Date Time Temp Pulse Resp B/P (MAP) Pulse Ox O2 Delivery O2 Flow Rate FiO2 02/21/18 08:00 98.5 120 22 127/85 (99) 100 02/21/18 04:00 Room Air 02/21/18 04:00 98.1 117 20 130/85 (100) 100 02/21/18 03:56 119 02/21/18 00:05 120 02/21/18 00:00 98.2 119 18 135/91 (106) 99 02/21/18 00:00 Room Air 02/20/18 20:00 Room Air 02/20/18 20:00 98.2 124 20 129/96 (107) 100 02/20/18 19:48 123 02/20/18 16:08 97.7 108 18 110/71 (84) 100 02/20/18 15:21 20 02/20/18 14:07 20 02/20/18 12:08 98.3 112 19 139/98 (112) 99 I/O 02/20/18 02/20/18 02/20/18 02/21/18 02/21/18 02/21/18 06:59 14:59 22:59 06:59 14:59 22:59 Intake Total 100 ml 100 ml 820 ml 880 ml Output Total 680 ml 800 ml 1225 ml Balance -580 ml 100 ml 20 ml -345 ml Intake Oral 720 ml 780 ml IV Total 100 ml 100 ml 100 ml 100 ml Output Urine Total 680 ml 800 ml 775 ml Emesis 450 ml # Voids 1 # Bowel Movements 0 1 Result Diagram: 02/21/18 0500 02/21/18 0500 Imaging Last Impressions Abdomen X-Ray 02/17/18 0000 Signed Impressions: CONCLUSION: Feeding tube in distal duodenum. Abdomen Fluoroscopy 02/16/18 0000 Signed Impressions: CONCLUSION: 1. Uncomplicated Dobbhoff tube placement as above. Abdomen/Pelvis CT 02/14/18 0000 Signed Impressions: CONCLUSION: 1. Suspected cirrhotic appearance of the liver. 2. Moderate ascites. 3. Small calcified gallstones. 4. 3 small metallic densities are seen within the gastric lumen and proximal t o mid small bowel. These are of uncertain etiology. 5. Linear atelectasis or consolidation at the right lower lobe. Objective Remarks GENERAL: This is a well-nourished, well-developed patient, in no apparent distress. CARDIOVASCULAR: Regular rate and regular rhythm without murmurs, gallops, or rubs. RESPIRATORY: Clear to auscultation. Breath sounds equal bilaterally. No wheezes , rales, or rhonchi. GASTROINTESTINAL: Abdomen soft, non-tender,distended. Normal, active bowel sounds MUSCULOSKELETAL: Extremities without clubbing, cyanosis, or edema. NEURO: Alert & Oriented x4 to person, place, time, situation. Moves all ext x4 Medications and IVs Inpatient Medications Albumin Human 100 ml @ 60 mls/hr Q12H IV Last administered on 02/21/18 09:29 ; Start 02/18/18 at 20:00; Stop 02/21/18 at 19:59 Bisacodyl (Dulcolax Supp) 10 mg DAILY PRN RECTAL SEVERE CONSITIPATION; Start at 20:15 Ceftriaxone Sodium 1000 mg/ Sodium Chloride 100 ml @ 200 mls/hr Q12H IV Last administered on 02/21/18 03:29; Start 02/15/18 at 17:00 Cholecalciferol (Vitamin D3) 1,000 units DAILY PO Last administered on 09:31; Start 02/15/18 at 09:00 Cholestyramine Resin (Questran 4 Gm Pkt) 4 gm TIDAC PO Last administered on 09:29; Start 02/15/18 at 08:00 Cyanocobalamin (Vitamin B12) 100 mcg DAILY PO Last administered on 02/21/18 09 :00; Start 02/15/18 at 09:00 Dextrose/Sodium Chloride 1,000 ml @ 100 mls/hr Q10H IV Last administered on 17:05; Start 02/14/18 at 21:45; Stop 02/17/18 at 10:46; Status DC Folic Acid (Folate) 1 mg DAILY PO Last administered on 02/21/18 09:31; Start 02/15/18 at 09:00 Hydroxyzine HCl (Atarax) 50 mg Q6H PRN PO itching Last administered on 06:06; Start 02/14/18 at 21:00 Lactulose (Lactulose Liq) 40 ml TID PO Last administered on 02/21/18 09:30; Start 02/15/18 at 09:00 Magnesium Hydroxide (Milk Of Magnesia Liq) 30 ml Q12H PRN PO Mild constipation ; Start 02/14/18 at 20:15 Metoclopramide HCl (Reglan Inj) 5 mg ONCE ONCE IV PUSH Last administered on at 09:27; Start 02/18/18 at 08:15; Stop 02/18/18 at 08:16; Status DC Midodrine (Proamatine) 2.5 mg TID@,12,17 PO Last administered on 02/21/18 06 :06; Start 02/15/18 at 07:00 Miscellaneous (Pill Splitter) 1 ea UNSCH PRN OTHER SEE LABEL COMMENTS; Start at 21:00 Morphine Sulfate (Morphine Inj) 2 mg Q3H PRN IV PUSH BREAKTHROUGH PAIN Last administered on 02/20/18at 21:00; Start 02/14/18 at 21:45 Naloxone HCl (Narcan Inj) 0.4 mg UNSCH PRN IV PUSH SEE LABEL COMMENTS; Start at 20:15 Ondansetron HCl (Zofran Odt) 4 mg Q6H PRN SL nausea Last administered on at 15:52; Start 02/14/18 at 21:45; Stop 02/18/18 at 17:18; Status DC Ondansetron HCl (Zofran Inj) 4 mg Q6H PRN IVP NAUSEA OR VOMITING; Start at 20:15; Stop 02/14/18 at 21:40; Status DC Oxycodone HCl (Roxicodone) 5 mg Q4H PRN PO PAIN Last administered on 02/21/18 03:29; Start 02/14/18 at 21:00 Pantoprazole Sodium (Protonix) 40 mg DAILY PO Last administered on 02/21/18 09 :30; Start 02/15/18 at 09:00 Pentoxifylline (TRENtal SR) 400 mg Q8H PO Last administered on 02/21/18at 06:06 ; Start 02/14/18 at 22:00 Potassium Chloride (KCl) 20 meq BID PO ; Start 02/14/18 at 21:00; Stop 02/14/18 at 21:14; Status DC Prochlorperazine Edisylate (Compazine Inj) 10 mg Q8H PRN IV PUSH nausea Last administered on 02/20/18at 23:33; Start 02/18/18 at 17:30 Rifaximin (Xifaxan) 400 mg Q8HR PO Last administered on 02/21/18at 06:06; Start 02/14/18 at 22:00 Sennosides (Senokot) 17.2 mg Q12H PRN PO Moderate constipation; Start 02/14/18 at 20:15 Sodium Chloride (NS Flush) 2 ml BID IV FLUSH Last administered on 02/21/18at 09: 33; Start 02/14/18 at 21:00 Spironolactone (Aldactone) 100 mg DAILY PO Last administered on 02/21/18at 09:31 ; Start 02/18/18 at 19:30 Water (Free Water) VOLUME OF WATER: (300) ML Q8HR G-TUBE Last administered on at 15:24; Start 02/17/18 at 14:00 A/P Problem List: (1) ELKIN (acute kidney injury) ICD Code: N17.9 - Acute kidney failure, unspecified Status: Acute (2) Acute pancreatitis ICD Code: K85.90 - Acute pancreatitis without necrosis or infection, unspecified Status: Acute (3) Failure to thrive Status: Acute (4) End-stage liver disease ICD Code: K72.90 - Hepatic failure, unspecified without coma Status: Chronic Assessment and Plan Failure to thrive Patient not eating or drinking well due to ESLD. S/p Dobbhoff placement by interventional radiology. however the tube was not functional and it was removed- reconsulted IR for dobbhoff tube replacement. GI following. - Consulted palliative care for ESLD. Assistance appreciated. - porter sample case consulted for calorie count. ( patient initially refused the dobhoff replacement) - Follow-up with speech therapy. - PT/ OT. Family feels pt is too weak to go home. Case management consult for possible SNF placement. ESLD Chronic. S/t alcohol abuse. Has not been drinking for the past few months. GI consult appreciated. - Resumed home medications lactulose, pentoxifylline, vitamine B12 and rifaximin. - On ceftriaxone for possible SBP. -repeat ammonia level. - GI following. Acute pancreatitis Abdominal CT reviewed and shows cirrhosis, ascites, calcified gallstones, and 3 small metallic densities seen in the gastric lumen and proximal to mid small bowel. Lipase has improved. - pain control and antiemetics as needed - Resumed home pain medication, morphine IV for breakthrough. - ADAT. Acute kidney injury, creatine 2.0, baseline .86 Improving. -start on gentle IV fluid with sodium bicarbonate - continue to hold Aldactone. Hyperkalemia Suspect due to ELKIN. Seems resolved. - hold home potassium supplements. leukocytosis- chronic- had BM biopsy recently- f/u with hematology as outpatient. Discharge Planning overall poor prognosis- dc planning; home within the next day or two- Problem Qualifiers (1) Acute pancreatitis: Qualified Codes: K85.90 - Acute pancreatitis without necrosis or infection, unspecified (2) Failure to thrive: Qualified Codes: R62.7 - Adult failure to thrive Mell Cunha MD February 21, 2018 09:49
--- NOTE | 2018-02-21 10:15 | HHI.GIFU ---
Subjective Remarks Pt resting in bed No complaints at this time States he is waiting for Dobbhoff to be replaced (Ava Santos) Objective Vitals I&O Vital Signs Date Time Temp Pulse Resp B/P (MAP) Pulse Ox O2 Delivery O2 Flow Rate FiO2 02/21/18 08:00 98.5 120 22 127/85 (99) 100 02/21/18 04:00 Room Air 02/21/18 04:00 98.1 117 20 130/85 (100) 100 02/21/18 03:56 119 02/21/18 00:05 120 02/21/18 00:00 98.2 119 18 135/91 (106) 99 02/21/18 00:00 Room Air 02/20/18 20:00 Room Air 02/20/18 20:00 98.2 124 20 129/96 (107) 100 02/20/18 19:48 123 02/20/18 16:08 97.7 108 18 110/71 (84) 100 02/20/18 15:21 20 02/20/18 14:07 20 02/20/18 12:08 98.3 112 19 139/98 (112) 99 I/O 02/20/18 02/20/18 02/20/18 02/21/18 02/21/18 02/21/18 07:00 15:00 23:00 07:00 15:00 23:00 Intake Total 100 ml 100 ml 820 ml 880 ml Output Total 680 ml 800 ml 1225 ml Balance -580 ml 100 ml 20 ml -345 ml Intake Oral 720 ml 780 ml IV Total 100 ml 100 ml 100 ml 100 ml Output Urine Total 680 ml 800 ml 775 ml Emesis 450 ml # Voids 1 # Bowel Movements 0 1 Laboratory Laboratory Tests Test 02/21/18 05:00 White Blood Count 21.9 Red Blood Count 3.00 Hemoglobin 10.4 Hematocrit 30.2 Mean Corpuscular Volume 100.7 Mean Corpuscular Hemoglobin 34.5 Mean Corpuscular Hemoglobin Concent 34.3 Red Cell Distribution Width 16.5 Platelet Count 191 Mean Platelet Volume 9.1 Neutrophils (%) (Auto) 81.7 Lymphocytes (%) (Auto) 7.7 Monocytes (%) (Auto) 8.7 Eosinophils (%) (Auto) 1.4 Basophils (%) (Auto) 0.5 Neutrophils # (Auto) 17.9 Lymphocytes # (Auto) 1.7 Monocytes # (Auto) 1.9 Eosinophils # (Auto) 0.3 Basophils # (Auto) 0.1 CBC Comment AUTO DIFF Differential Total Cells Counted 100 Neutrophils % (Manual) 71 Band Neutrophils % 13 Lymphocytes % 9 Monocytes % 5 Neutrophils # (Manual) 18.8 Metamyelocytes 1 Myelocytes 1 Differential Comment FINAL DIFF MANUAL Platelet Estimate NORMAL Platelet Morphology Comment NORMAL Target Cells 1+ [place] Cells Acanthocytes 1+ Blood Urea Nitrogen 21 Creatinine 0.92 Random Glucose 96 Calcium Level 9.3 Magnesium Level 1.7 Sodium Level 134 Potassium Level 3.9 Chloride Level 108 Carbon Dioxide Level 12.9 Anion Gap 13 Estimat Glomerular Filtration Rate 92 Imaging Last Impressions Abdomen X-Ray 02/17/18 0000 Signed Impressions: CONCLUSION: Feeding tube in distal duodenum. Abdomen Fluoroscopy 02/16/18 0000 Signed Impressions: CONCLUSION: 1. Uncomplicated Dobbhoff tube placement as above. Abdomen/Pelvis CT 02/14/18 0000 Signed Impressions: CONCLUSION: 1. Suspected cirrhotic appearance of the liver. 2. Moderate ascites. 3. Small calcified gallstones. 4. 3 small metallic densities are seen within the gastric lumen and proximal t o mid small bowel. These are of uncertain etiology. 5. Linear atelectasis or consolidation at the right lower lobe. Physical Exam HEENT: Normocephalic; atraumatic, (+) icterus CHEST: Even/unlabored CARDIAC: RRR ABDOMEN: Distended, soft, nontender, bowel sounds active EXTREMITIES: No lower extremity, muscular wasting SKIN: (+) jaundice PUBLIC HEALTH: Lethargic (Ava Santos) Assessment and Plan Plan Assessment: - Cirrhosis secondary to ETOH abuse Family working on getting patient Medicaid, plans to go to [facility] to be evaluated for liver transplant Pt well known to our service, seen both inpatient and in the clinic As per HPI- pt was having outpatient paracentesis and Dobhoff done, but he was extremely weak and could not sit up in wheelchair and asked for a stretcher- due to weakness he was advised to go to ER As per HPI mother is very persistent about aggressive care - Possible SBP- Started on Cipro 2 days prior to arrival in office - Poor nutrition- Pt with decreased appetite, has been previously started on Megace with some improvement but has had increasingly frequent nausea and emesis recently- PEG contraindicated given ascites and concern for SBP- pt started on Cipro 2 days ago in the clinic - Persistent leukocytosis- followed by Dr. Hahn- reports recent bone marrow biopsy S/P Dobhoff which reportedly became blocked and was removed, initially patient refused replacement, he is now agreeable (02/21) No significant changes. Planned for Dobhoff by IR today. Plan: IR consult for Dobbhoff placement Dietary following Continue supportive care and home medication Spironolactone, Lactulose, Protonix, Midodrine, Xifaxan, Trental Remains on Rocephin, increase in leukocytosis- as noted above hematology had done bone marrow biopsy, unsure of results Further recommendations based on clinical course Pt has been seen and examined by myself and Dr. Markham and this note is written on his behalf (Ava Santos) Physician Comments Seen and examined with REINIER, eran encephalopathic and jaundiced. DBT placement today. Swartz in progress for evaluation at [facility]. (Tamia Markham MD) Ava Santos February 21, 2018 10:15 Tamia Markham MD February 21, 2018 12:15
[2018-02-21] MEDS ORDERED: SODIUM BICARBONATE 8.4% INJ 50 MEQ in DEXTROSE 5% IN WATE 1000ML INJ 1,000 ML IV ONE ×2 (11:00)
--- NOTE | 2018-02-21 15:14 | RADRPT ---
EXAM DATE: 02/21/2018 1:48 PM EDT AGE/SEX: 37 years / Male INDICATIONS: Patient presents with end stage liver disease in need of NG Tube for nourishment. CLINICAL DATA: This is the patient's initial encounter. Patient reports that signs and symptoms have been present for 4 - 6 days and indicates a pain score of 0/10. MEDICAL/SURGICAL HISTORY: . Liver DiseaseAlcohol abuseHepatorenal Syndrome None. COMPARISON: No prior [facility] exams available for comparison. FLUORO TIME (min): 0.6 IMAGE SERIES: DEVICE(S): . . PROCEDURE: 1. Fluoroscopically guided enteric feeding tube placement. The risks, benefits and alternatives to the procedure were explained and verbal and written consent w as obtained. With fluoroscopic guidance a weighted enteric feeding tube was passed through the nasal cavity into the stomach. The stomach was partially insufflated with air and the tube was navigated through the pyloric channel into the duodenum. CONCLUSION: 1. Uncomplicated Dobbhoff tube placement as above. Electronically signed by: Vitaly Salgado MD 02/21/2018 3:13 PM EDT
[2018-02-21] MEDS: PROCHLORPERAZINE INJ 10 MG/2 ML VIAL IV PUSH PRN (17:54)
[2018-02-22] VITALS (12 sets, daily range): BP systolic 116–145; BP diastolic 78–97; PULSE 110–124; RESP 16–18; TEMP 97.8–98.9; O2SAT 96–99
[2018-02-22] MEDS: PROCHLORPERAZINE INJ 10 MG/2 ML VIAL IV PUSH PRN (02:12)
[2018-02-22] MEDS: cefTRIAXone INJ 1,000 MG in SODIUM CHLORIDE 0.9% INJ 100 ML IV SCH ×2 (05:00→16:42)
[2018-02-22] MEDS: FREE WATER G-TUBE SCH ×3 (06:00→21:44)
[2018-02-22] MEDS: PENTOXIFYLLINE 400 MG CONTROLLED RELEASE TAB PO SCH ×3 (06:34→21:44)
[2018-02-22] MEDS: hydrOXYzine HCL 50 MG TAB PO PRN ×3 (06:34→21:43)
[2018-02-22] MEDS: MIDODRINE 5 MG TAB PO SCH ×3 (06:34→16:43)
[2018-02-22 07:28] LABS: BICARBONATE 13.4 MEQ/L (21.0-32.0); CALCIUM 9.3 MG/DL (8.5-10.1); CREATININE 0.92 MG/DL (0.60-1.30)
[2018-02-22] MEDS: LACTULOSE SYRUP 20 GM/30 ML CUP PO SCH ×3 (08:19→17:00)
[2018-02-22] MEDS: CHOLESTYRAMINE 4 GM PACKET PO SCH ×3 (08:19→16:43)
[2018-02-22] MEDS: SPIRONOLACTONE 100 MG TAB PO SCH (08:20)
[2018-02-22] MEDS: FOLIC ACID 1 MG TAB PO SCH (08:20)
[2018-02-22] MEDS: SODIUM CHLORIDE 0.9% FLUSH 10 ML FLUSH IV FLUSH SCH ×2 (08:20→21:44)
[2018-02-22] MEDS: CYANOCOBALAMIN 100 MCG TAB PO SCH (08:20)
[2018-02-22] MEDS: PANTOPRAZOLE SOD 40 MG DELAYED RELEASE TAB PO SCH (08:20)
[2018-02-22] MEDS: CHOLECALCIFEROL (VIT D3) 1000 UNIT TAB PO SCH (08:21)
--- NOTE | 2018-02-22 10:28 | HHI.GIFU ---
Subjective Remarks Pt resting in bed Family at bedside TF running through Dobbhoff for 12 hours last night with no issues Pt denies any nausea and vomiting Was able to eat some cereal breakfast Complaining of abdominal distention and would like a paracentesis done (Ava Santos) Objective Vitals I&O Vital Signs Date Time Temp Pulse Resp B/P (MAP) Pulse Ox O2 Delivery O2 Flow Rate FiO2 02/22/18 08:17 98.7 124 17 126/80 (95) 98 02/22/18 04:06 121 02/22/18 04:00 Room Air 02/22/18 04:00 98.9 110 18 125/88 (100) 99 02/22/18 00:19 120 02/22/18 00:00 Room Air 02/22/18 00:00 98.3 117 18 145/89 (107) 99 02/21/18 20:00 Room Air 02/21/18 20:00 98.3 114 19 111/58 (75) 100 02/21/18 19:43 119 02/21/18 16:00 117 02/21/18 16:00 98.6 115 20 122/86 (98) 100 02/21/18 12:00 97.3 117 22 127/83 (98) 100 02/21/18 12:00 115 I/O 02/21/18 02/21/18 02/21/18 02/22/18 02/22/18 02/22/18 07:00 15:00 23:00 07:00 15:00 23:00 Intake Total 880 ml 920 ml 1558 ml Output Total 1225 ml 500 ml Balance -345 ml 920 ml 1058 ml Intake Oral 780 ml 920 ml 360 ml IV Total 100 ml 578 ml Tube Feeding 320 ml Other 300 ml Output Urine Total 775 ml 500 ml Emesis 450 ml # Voids 1 5 # Bowel Movements 1 0 0 Laboratory Laboratory Tests Test 02/21/18 15:02 02/22/18 06:06 Ammonia 49 Blood Urea Nitrogen 17 Creatinine 0.92 Random Glucose 134 Calcium Level 9.3 Sodium Level 132 Potassium Level 4.0 Chloride Level 108 Carbon Dioxide Level 13.4 Anion Gap 11 Estimat Glomerular Filtration Rate 92 Imaging Last Impressions Abdomen Fluoroscopy 02/21/18 0000 Signed Impressions: CONCLUSION: 1. Uncomplicated Dobbhoff tube placement as above. Abdomen X-Ray 5/25/18 0000 Signed Impressions: CONCLUSION: Feeding tube in distal duodenum. Abdomen/Pelvis CT 02/14/18 0000 Signed Impressions: CONCLUSION: 1. Suspected cirrhotic appearance of the liver. 2. Moderate ascites. 3. Small calcified gallstones. 4. 3 small metallic densities are seen within the gastric lumen and proximal t o mid small bowel. These are of uncertain etiology. 5. Linear atelectasis or consolidation at the right lower lobe. Physical Exam HEENT: Normocephalic; atraumatic, (+) icterus CHEST: Even/unlabored CARDIAC: RRR ABDOMEN: Distended, firm, nontender, bowel sounds active EXTREMITIES: No lower extremity, muscular wasting SKIN: (+) jaundice CASE FINISHING MACHINE ADJUSTER: Lethargic (Ava Santos) Assessment and Plan Plan Assessment: - Cirrhosis secondary to ETOH abuse Family working on getting patient Medicaid, plans to go to [facility] to be evaluated for liver transplant Pt well known to our service, seen both inpatient and in the clinic As per HPI- pt was having outpatient paracentesis and Dobhoff done, but he was extremely weak and could not sit up in wheelchair and asked for a stretcher- due to weakness he was advised to go to ER As per HPI mother is very persistent about aggressive care - Possible SBP- Started on Cipro 2 days prior to arrival in office - Poor nutrition- Pt with decreased appetite, has been previously started on Megace with some improvement but has had increasingly frequent nausea and emesis recently- PEG contraindicated given ascites and concern for SBP- pt started on Cipro 2 days ago in the clinic - Persistent leukocytosis- followed by Dr. Hahn- reports recent bone marrow biopsy S/P Dobhoff which reportedly became blocked and was removed, initially patient refused replacement, he is now agreeable (02/21) No significant changes. Planned for Dobhoff by IR today. (02/22) Dobbhoff placed by IR yesterday, TF ran for 12 hours last night with no issues. Pt denies nausea and vomiting. Was also able to tolerate some cereal for breakfast this morning. Pt complaining of abdominal distention, states he needs another paracentesis. Abdomen is distended and firm today. Plan: Paracentesis Continue supportive care and home medication Spironolactone, Lactulose, Protonix, Midodrine, Xifaxan, Trental Dietary recommendations for TF GI will sign off, continue with current management Mother still working on getting Medicaid approved with hopes to go to [facility] for possible transplant Have pt follow up with GI after DC Pt has been seen and examined by myself and Dr. Markham and this note is written on his behalf (Ava Santos) Physician Comments Seen and examined with KINDERGARTNER, tolerating TF. Paracentesis today. DC home on TF. Swartz in progress for evaluation at [facility] once pt. gets medicaid. Mom working on this. GI will sign off. REconsult PRN. Thank you (Tamia Markham MD) Ava Santos February 22, 2018 10:27 Tamia Markham MD February 22, 2018 16:21
[2018-02-22] MEDS: RIFAXIMIN 200 MG TAB PO SCH ×3 (10:37→21:43)
--- NOTE | 2018-02-22 10:49 | HHI.PR ---
Subjective Remarks in no acute distress. had some nausea earlier which has improved. no fever. d/w the mother at the bedside. Objective Vitals Vital Signs Date Time Temp Pulse Resp B/P (MAP) Pulse Ox O2 Delivery O2 Flow Rate FiO2 02/22/18 08:17 98.7 124 17 126/80 (95) 98 02/22/18 04:06 121 02/22/18 04:00 Room Air 02/22/18 04:00 98.9 110 18 125/88 (100) 99 02/22/18 00:19 120 02/22/18 00:00 Room Air 02/22/18 00:00 98.3 117 18 145/89 (107) 99 02/21/18 20:00 Room Air 02/21/18 20:00 98.3 114 19 111/58 (75) 100 02/21/18 19:43 119 02/21/18 16:00 117 02/21/18 16:00 98.6 115 20 122/86 (98) 100 02/21/18 12:00 97.3 117 22 127/83 (98) 100 02/21/18 12:00 115 I/O 02/21/18 02/21/18 02/21/18 02/22/18 02/22/18 02/22/18 07:00 15:00 23:00 07:00 15:00 23:00 Intake Total 880 ml 920 ml 1558 ml Output Total 1225 ml 500 ml Balance -345 ml 920 ml 1058 ml Intake Oral 780 ml 920 ml 360 ml IV Total 100 ml 578 ml Tube Feeding 320 ml Other 300 ml Output Urine Total 775 ml 500 ml Emesis 450 ml # Voids 1 5 # Bowel Movements 1 0 0 Result Diagram: 02/21/18 0500 02/22/18 0606 Imaging Last Impressions Abdomen Fluoroscopy 02/21/18 0000 Signed Impressions: CONCLUSION: 1. Uncomplicated Dobbhoff tube placement as above. Abdomen X-Ray 02/17/18 0000 Signed Impressions: CONCLUSION: Feeding tube in distal duodenum. Abdomen/Pelvis CT 02/14/18 0000 Signed Impressions: CONCLUSION: 1. Suspected cirrhotic appearance of the liver. 2. Moderate ascites. 3. Small calcified gallstones. 4. 3 small metallic densities are seen within the gastric lumen and proximal t o mid small bowel. These are of uncertain etiology. 5. Linear atelectasis or consolidation at the right lower lobe. Objective Remarks GENERAL:in no apparent distress. jaundiced. CARDIOVASCULAR: Regular rate and regular rhythm without murmurs, gallops, or rubs. RESPIRATORY: Clear to auscultation. Breath sounds equal bilaterally. No wheezes , rales, or rhonchi. GASTROINTESTINAL: Abdomen soft, non-tender,distended. Normal, active bowel sounds MUSCULOSKELETAL: Extremities without clubbing, cyanosis, or edema. NEURO: mildly lethargic- but easily arousable and answers the questions. Procedures dobhoff tube placement. Medications and IVs Inpatient Medications Albumin Human 100 ml @ 60 mls/hr Q12H IV Last administered on 02/21/18 09:29 ; Start 02/18/18 at 20:00; Stop 02/21/18 at 19:59; Status DC Bisacodyl (Dulcolax Supp) 10 mg DAILY PRN RECTAL SEVERE CONSITIPATION; Start at 20:15 Ceftriaxone Sodium 1000 mg/ Sodium Chloride 100 ml @ 200 mls/hr Q12H IV Last administered on 02/22/18 05:00; Start 02/15/18 at 17:00 Cholecalciferol (Vitamin D3) 1,000 units DAILY PO Last administered on 08:21; Start 02/15/18 at 09:00 Cholestyramine Resin (Questran 4 Gm Pkt) 4 gm TIDAC PO Last administered on 08:19; Start 02/15/18 at 08:00 Cyanocobalamin (Vitamin B12) 100 mcg DAILY PO Last administered on 02/22/18 08 :20; Start 02/15/18 at 09:00 Dextrose/Sodium Chloride 1,000 ml @ 100 mls/hr Q10H IV Last administered on 17:05; Start 02/14/18 at 21:45; Stop 02/17/18 at 10:46; Status DC Folic Acid (Folate) 1 mg DAILY PO Last administered on 02/22/18 08:20; Start 02/15/18 at 09:00 Hydroxyzine HCl (Atarax) 50 mg Q6H PRN PO itching Last administered on 06:34; Start 02/14/18 at 21:00 Lactulose (Lactulose Liq) 40 ml TID PO Last administered on 02/22/18at 08:19; Start 02/15/18 at 09:00 Magnesium Hydroxide (Milk Of Magnesia Liq) 30 ml Q12H PRN PO Mild constipation ; Start 02/14/18 at 20:15 Metoclopramide HCl (Reglan Inj) 5 mg ONCE ONCE IV PUSH Last administered on at 09:27; Start 02/18/18 at 08:15; Stop 02/18/18 at 08:16; Status DC Midodrine (Proamatine) 2.5 mg TID@07,12,17 PO Last administered on 02/22/18 06 :34; Start 02/15/18 at 07:00 Miscellaneous (Pill Splitter) 1 ea UNSCH PRN OTHER SEE LABEL COMMENTS; Start at 21:00 Morphine Sulfate (Morphine Inj) 2 mg Q3H PRN IV PUSH BREAKTHROUGH PAIN Last administered on 02/20/18at 21:00; Start 02/14/18 at 21:45 Naloxone HCl (Narcan Inj) 0.4 mg UNSCH PRN IV PUSH SEE LABEL COMMENTS; Start at 20:15 Ondansetron HCl (Zofran Odt) 4 mg Q6H PRN SL nausea Last administered on at 15:52; Start 02/14/18 at 21:45; Stop 02/18/18 at 17:18; Status DC Ondansetron HCl (Zofran Inj) 4 mg Q6H PRN IVP NAUSEA OR VOMITING; Start at 20:15; Stop 02/14/18 at 21:40; Status DC Oxycodone HCl (Roxicodone) 5 mg Q4H PRN PO PAIN Last administered on 02/22/18at 06:34; Start 02/14/18 at 21:00 Pantoprazole Sodium (Protonix) 40 mg DAILY PO Last administered on 02/22/18 08 :20; Start 02/15/18 at 09:00 Pentoxifylline (TRENtal SR) 400 mg Q8H PO Last administered on 02/22/18 06:34 ; Start 02/14/18 at 22:00 Potassium Chloride (KCl) 20 meq BID PO ; Start 02/14/18 at 21:00; Stop 02/14/18 at 21:14; Status DC Prochlorperazine Edisylate (Compazine Inj) 10 mg Q8H PRN IV PUSH nausea Last administered on 02/22/18at 02:12; Start 02/18/18 at 17:30 Rifaximin (Xifaxan) 400 mg Q8HR PO Last administered on 02/22/18at 10:37; Start 02/14/18 at 22:00 Sennosides (Senokot) 17.2 mg Q12H PRN PO Moderate constipation; Start 02/14/18 at 20:15 Sodium Bicarbonate 50 meq/Dextrose 1,050 ml @ 42 mls/hr Q24H ONCE IV Last administered on 02/21/18at 12:42; Start 02/21/18 at 11:00; Stop 02/22/18 at 10:59 Sodium Chloride (NS Flush) 2 ml BID IV FLUSH Last administered on 02/22/18at 08: 20; Start 02/14/18 at 21:00 Spironolactone (Aldactone) 100 mg DAILY PO Last administered on 02/22/18 08:20 ; Start 02/18/18 at 19:30 Water (Free Water) VOLUME OF WATER: (300) ML Q8HR G-TUBE Last administered on at 06:00; Start 02/17/18 at 14:00 A/P Problem List: (1) ELKIN (acute kidney injury) ICD Code: N17.9 - Acute kidney failure, unspecified Status: Acute (2) Acute pancreatitis ICD Code: K85.90 - Acute pancreatitis without necrosis or infection, unspecified Status: Acute (3) Failure to thrive Status: Acute (4) End-stage liver disease ICD Code: K72.90 - Hepatic failure, unspecified without coma Status: Chronic Assessment and Plan Failure to thrive Patient not eating or drinking well due to ESLD. S/p Dobbhoff placement by interventional radiology. however the tube was not functional and it was removed- reconsulted IR and dobhoff was replaced and tube feeding was restarted. GI following. - Consulted palliative care for ESLD. Assistance appreciated. - assistant attorney general consulted . - Follow-up with speech therapy. - PT/ OT. Family feels pt is too weak to go home. Case management consult for possible SNF placement. ESLD Chronic. S/t alcohol abuse. Has not been drinking for the past few months. GI consult appreciated. - Resumed home medications lactulose, pentoxifylline, vitamine B12 and rifaximin. - On ceftriaxone for possible SBP. -for paracentesis today. - GI following. -being evaluated for liver transplant at [facility]. Acute pancreatitis Abdominal CT reviewed and shows cirrhosis, ascites, calcified gallstones, and 3 small metallic densities seen in the gastric lumen and proximal to mid small bowel. Lipase has improved. - pain control and antiemetics as needed - Resumed home pain medication, morphine IV for breakthrough. - ADAT. Acute kidney injury, creatine 2.0, baseline .86 Improving. -received gentle IV fluid with sodium bicarbonate -BMP tomorrow. Hyperkalemia Suspect due to ELKIN. Seems resolved. - hold home potassium supplements. leukocytosis- chronic- had BM biopsy recently- f/u with hematology as outpatient. continue PT. Discharge Planning dc home within the next one-two days if stable. d/w the mother at the bedside. Problem Qualifiers (1) Acute pancreatitis: Qualified Codes: K85.90 - Acute pancreatitis without necrosis or infection, unspecified (2) Failure to thrive: Qualified Codes: R62.7 - Adult failure to thrive Mell Cunha MD February 22, 2018 10:49
[2018-02-22 12:28] LABS: INTERNATIONAL NORMALIZED RATIO 2.4 RATIO; PROTHROMBIN TIME - PATIENT 23.8 SEC (9.8-11.6)
[2018-02-23] VITALS (7 sets, daily range): BP systolic 106–136; BP diastolic 67–89; PULSE 119–127; RESP 17–22; TEMP 97.1–98.2; O2SAT 99–100
[2018-02-23] MEDS: hydrOXYzine HCL 50 MG TAB PO PRN ×3 (03:33→22:28)
[2018-02-23] MEDS: cefTRIAXone INJ 1,000 MG in SODIUM CHLORIDE 0.9% INJ 100 ML IV SCH (05:37)
[2018-02-23] MEDS: RIFAXIMIN 200 MG TAB PO SCH ×3 (05:38→22:28)
[2018-02-23] MEDS: PENTOXIFYLLINE 400 MG CONTROLLED RELEASE TAB PO SCH ×3 (05:38→22:28)
[2018-02-23] MEDS: MIDODRINE 5 MG TAB PO SCH ×3 (05:38→17:02)
[2018-02-23] MEDS: FREE WATER G-TUBE SCH ×3 (05:38→22:28)
[2018-02-23] MEDS: FOLIC ACID 1 MG TAB PO SCH (08:42)
[2018-02-23] MEDS: CHOLECALCIFEROL (VIT D3) 1000 UNIT TAB PO SCH (08:42)
[2018-02-23] MEDS: CYANOCOBALAMIN 100 MCG TAB PO SCH (08:43)
[2018-02-23] MEDS: SPIRONOLACTONE 100 MG TAB PO SCH (08:43)
[2018-02-23] MEDS: LACTULOSE SYRUP 20 GM/30 ML CUP PO SCH ×3 (08:43→17:12)
[2018-02-23] MEDS: PANTOPRAZOLE SOD 40 MG DELAYED RELEASE TAB PO SCH (08:43)
[2018-02-23] MEDS: SODIUM CHLORIDE 0.9% FLUSH 10 ML FLUSH IV FLUSH SCH ×2 (08:43→22:28)
[2018-02-23] MEDS: CHOLESTYRAMINE 4 GM PACKET PO SCH ×3 (08:49→17:01)
[2018-02-23 12:17] LABS: INTERNATIONAL NORMALIZED RATIO 2.3 RATIO; PROTHROMBIN TIME - PATIENT 23.2 SEC (9.8-11.6)
--- NOTE | 2018-02-23 12:45 | HHI.HCPN ---
Reason for visit a. To assist with evaluation and management of symptoms including: Anorexia , abdominal pain b. To assist medical decision maker(s) with: better understanding of current medical conditions; weighing benefits/burdens of medical treatment options; making medical treatment decisions. Subjective/Interval History Patient seen to follow-up on symptoms of anorexia and abdominal pain. Patient is status post replacement of the Dobbhoff tube on 02/19, now receiving VITAL 1.5 tube feeding at 70 mL an hour each night to supplement poor oral intake. He has gained 5 kg in weight over his admission, but does have significant ascites. He is also seen to have muscle wasting in all extremities. He states that he has very little appetite and frequently vomits after eating. Last night's dinner consisted of a bottle of Ensure and a banana. He also complains of abdominal pain secondary to increasing ascites. He is awaiting ultrasound for paracentesis, however his INR yesterday was 2.4 so procedure was held. Today's level is 2.3. He complains of generalized pressure throughout the entire abdomen of moderate intensity, constant in duration relieved by paracentesis. . Family/friend interactions Spoke with his mother at length regarding discharge plans. She states she is unable to take him home at this time as she has had no training in administering in caring for the tube feeding and has made no arrangements to obtain a hospital bed or bedside commode, which he will need when he goes home. She also needs clarification regarding the feeding tube pump and supplies, as at this time, the patient has no insurance funding to assist him. He is Medicaid pending and has received his award letter that he has been approved for disability. The family would like him to go to [facility] re[facility], however at this time, it is not felt that his performance status is adequate to comply with [facility] regimen. Mother states that his Medicaid is under review today and should have an answer soon, at which time she is to contact the [facility] and see if the type of Medicaid he has is acceptable for transplant evaluation. . Advance Directives Living Will: Never completed Health Care Surrogate: Copy in medical record Durable Power of Integrated Circuit Fabricator: Never completed Advance Directive Specifics Date completed: 11/28/2017 . Health Care Surrogate(s): He has elected his mother, Linda as well, as his healthcare surrogate. . Documented care wishes: No living will available. . Objective Vital Signs Date Time Temp Pulse Resp B/P (MAP) Pulse Ox O2 Delivery O2 Flow Rate FiO2 02/23/18 08:00 121 02/23/18 08:00 97.9 124 20 129/89 (102) 100 02/23/18 08:00 Room Air 02/23/18 04:00 123 02/23/18 03:52 97.1 123 18 124/79 (94) 99 02/23/18 00:00 122 02/22/18 23:45 97.8 124 18 136/97 (110) 99 02/22/18 20:00 Room Air 02/22/18 20:00 122 02/22/18 20:00 98.3 118 18 116/78 (91) 99 02/22/18 16:32 98.1 120 16 124/78 (93) 99 02/22/18 16:00 120 02/22/18 12:32 98.2 120 18 126/78 (94) 96 Intake & Output 02/23/18 02/23/18 07:00 19:00 Intake Total 240 ml Output Total 500 ml Balance -260 ml Intake Oral 240 ml Output Urine Total 500 ml # Bowel Movements 2 Physical Exam CONSTITUTIONAL/GENERAL: This is a thin, jaundiced ill appearing, middle-aged man , lying in bed in no acute distress. TUBES/LINES/DRAINS: PIV, Dobbhoff in left nare SKIN: Severely jaundiced with multiple open sores scratching. Ecchymoses on upper extremities. No wounds seen anteriorly. Skin temperature appropriate. Not diaphoretic. HEAD: Atraumatic. Normocephalic. EYES: Pupils equal and round and reactive. Extraocular motions intact. Positive scleral icterus. Positive injection, no drainage. Fundi not examined. ENT: Hearing grossly normal. Nose without bleeding or purulent drainage. Throat without visible erythema, exudates, masses, or lesions. NECK: Trachea midline. Supple, nontender. No palpable thyroid enlargement or nodularity. CARDIOVASCULAR: S1, S2, tachycardic rate, regular rhythm without murmurs, gallops, or rubs. Mild JVD. Peripheral pulses symmetric. RESPIRATORY/CHEST: Symmetric, unlabored respirations. Clear to auscultation. Breath sounds equal bilaterally. No wheezes, rales, or rhonchi. GASTROINTESTINAL: Abdomen distended, tender. Limited exam due to ascites and body habitus. GENITOURINARY: Without palpable bladder distension. MUSCULOSKELETAL: Extremities without clubbing, cyanosis, or edema. No joint tenderness or effusion noted. No calf tenderness. Muscle wasting in all 4 extremities. LYMPHATICS: No palpable cervical or supraclavicular adenopathy. NEUROLOGICAL: Awake, participating in OT, appears oriented 3 with limited insight. PSYCHIATRIC: No obvious anxiety/depression. no apparent hallucinations or other psychotic thought process. . Diagnostic Tests Laboratory Laboratory Tests Test 02/21/18 05:00 02/21/18 15:02 02/22/18 06:06 02/22/18 11:54 White Blood Count 21.9 TH/MM3 (4.0-11.0) Red Blood Count 3.00 MIL/MM3 (4.50-5.90) Hemoglobin 10.4 GM/DL (13.0-17.0) Hematocrit 30.2 % (39.0-51.0) Mean Corpuscular Volume 100.7 FL (80.0-100.0) Mean Corpuscular Hemoglobin 34.5 PG (27.0-34.0) Mean Corpuscular Hemoglobin Concent 34.3 % (32.0-36.0) Red Cell Distribution Width 16.5 % (11.6-17.2) Platelet Count 191 TH/MM3 (150-450) Mean Platelet Volume 9.1 FL (7.0-11.0) Neutrophils (%) (Auto) 81.7 % (16.0-70.0) Lymphocytes (%) (Auto) 7.7 % (9.0-44.0) Monocytes (%) (Auto) 8.7 % (0.0-8.0) Eosinophils (%) (Auto) 1.4 % (0.0-4.0) Basophils (%) (Auto) 0.5 % (0.0-2.0) Neutrophils # (Auto) 17.9 TH/MM3 (1.8-7.7) Lymphocytes # (Auto) 1.7 TH/MM3 (1.0-4.8) Monocytes # (Auto) 1.9 TH/MM3 (0-0.9) Eosinophils # (Auto) 0.3 TH/MM3 (0-0.4) Basophils # (Auto) 0.1 TH/MM3 (0-0.2) CBC Comment AUTO DIFF Differential Total Cells Counted 100 Neutrophils % (Manual) 71 % (16-70) Band Neutrophils % 13 % (0-6) Lymphocytes % 9 % (9-44) Monocytes % 5 % (0-8) Neutrophils # (Manual) 18.8 TH/MM3 (1.8-7.7) Metamyelocytes 1 % (0-1) Myelocytes 1 % (0-0) Differential Comment FINAL DIFF MANUAL Platelet Estimate NORMAL (NORMAL) Platelet Morphology Comment NORMAL (NORMAL) Target Cells 1+ (NORMAL) [place]upe Cells (NORMAL) Acanthocytes 1+ (NORMAL) Blood Urea Nitrogen 21 MG/DL (7-18) 17 MG/DL (7-18) Creatinine 0.92 MG/DL (0.60-1.30) 0.92 MG/DL (0.60-1.30) Random Glucose 96 MG/DL (74-106) 134 MG/DL (74-106) Calcium Level 9.3 MG/DL (8.5-10.1) 9.3 MG/DL (8.5-10.1) Magnesium Level 1.7 MG/DL (1.5-2.5) Sodium Level 134 MEQ/L (136-145) 132 MEQ/L (136-145) Potassium Level 3.9 MEQ/L (3.5-5.1) 4.0 MEQ/L (3.5-5.1) Chloride Level 108 MEQ/L (98-107) 108 MEQ/L (98-107) Carbon Dioxide Level 12.9 MEQ/L (21.0-32.0) 13.4 MEQ/L (21.0-32.0) Anion Gap 13 MEQ/L (5-15) 11 MEQ/L (5-15) Estimat Glomerular Filtration Rate 92 ML/MIN (>89) 92 ML/MIN (>89) Ammonia 49 MCMOL/L (11-32) Prothrombin Time 23.8 SEC (9.8-11.6) Prothromb Time International Ratio 2.4 RATIO Test 02/22/18 17:08 Lactic Acid Level 2.0 mmol/L (0.4-2.0) Result Diagram: 02/21/18 0500 02/22/18 0606 Procedures 02/16: Dobbhoff tube placement . Assessment and Plan Disease Oriented Problem List: (1) Hepatorenal syndrome (2) Hepatic encephalopathy (3) Cirrhosis with alcoholism (4) Coagulopathy (5) Itching (6) End stage liver disease (7) Ascites Symptom Scale: (1) Abdominal pain 0-10 Scale: 6 (.) (2) Anorexia 0-10 Scale: 9 (3) Shortness of breath (4) Pruritus Pertinent Non-Medical Issues Psychosocial:He was born and completed high school in [place] then moved to [place] with his parents when they retired. He has never been or had children. He has never been in the armed service. He works at [employer]. Spiritual:Identifies with the Orthodox ovidio. Legal: None identified. Ethical issues impacting care: None identified. . Important Contacts Mother: Linda العلي . Prognosis His prognosis is guarded. Although he had a long history of heavy alcohol use, he has abstained for the last 2 months and is pursuing liver transplant. His medications are being administered to him by his mother due to his underlying confusion and lethargy, likely related to hepatic encephalopathy. At this time he is pending Medicaid and his transplant evaluation is being held pending insurance funding. His appetite has declined to nearly nothing and he is requiring paracentesis every 1-2 weeks. Family is now requesting insertion of a Dobbhoff tube as Dr. Head felt that a PEG tube would be a poor option for him with his constant ascites pressure. He has had multiple hospitalizations since October and is likely to continue to have complications , decline and recurrent hospitalizations. . Code Status: Full Code Plan PLAN: Legal decision maker: At this time the patient is having some hepatic encephalopathy, confusion and forgetfulness. He appears to have poor insight into his condition. He has named his mother his healthcare surrogate and she is readily available and willing to serve. Would recommend shared decision making at this point. Goals: Aggressive. CODE STATUS: FULL CODE SYMPTOMS: * Anorexia: He is not a candidate for a PEG tube due to his significant, recurrent ascites and risk for SBP. He is tolerating the Dobbhoff with supplemental nighttime feedings with intermittent nausea and vomiting. He states that the taste of food has changed and most of it does not taste good enough for him to be able to eat and once he does find something palatable, he has early satiety. Dietitian noted that he is eating less than 1,000 katja a day. * Abdominal pain: He has constant abdominal pain worsening with increasing ascites and is requiring frequent paracentesis with an average of 7-8 L per session. His last paracentesis was done 02/14 with 7100 mL removed. He is pending repeat paracentesis for increasing ascites, however his INR was 2.4 yesterday so procedure was canceled. It is 2.3 today which is above the acceptable limit of 2.0. He will require reversal prior to undergoing paracentesis. Palliative care will continue to follow the patient during hospital course as condition evolves, to assist patient/decision-maker with understanding of their medical conditions, weighing benefits/burdens of treatment options, for clarification of goals of treatment. Additionally will assist with any symptoms of palliative concern. . Attestation To help prompt me to consider important information that might be impacting today's encounter and assessment, information from prior notes written by myself or my colleagues may have been "brought forward" into today's note. My signature on this note, however, is an attestation that I personally performed the exam, history, and/or decision-making noted today, and, unless otherwise indicated, the interactions with patient, family, and staff as well as the review of records all occurred today. I also attest that the listed assessment and stated plan reflect my best clinical judgment today based on the combination of historical information, prior notes, and today's exam/ interactions. When time spent is documented, it refers only to time spent today by the signer, or if indicated, combined time spent today by collaborating physician/nurse practitioner. . Ariana Pedroza February 23, 2018 12:45 pm
--- NOTE | 2018-02-23 13:51 | HHI.PR ---
Subjective Remarks Not able to do paracentesis because of elevated INR. Wants to shower, family and patient continue to be aggressive with treatment. Patient says he feels the water and tube feed down his throat Objective Vitals Vital Signs Date Time Temp Pulse Resp B/P (MAP) Pulse Ox O2 Delivery O2 Flow Rate FiO2 02/23/18 08:00 121 02/23/18 08:00 97.9 124 20 129/89 (102) 100 02/23/18 08:00 Room Air 02/23/18 04:00 123 02/23/18 03:52 97.1 123 18 124/79 (94) 99 02/23/18 00:00 122 02/22/18 23:45 97.8 124 18 136/97 (110) 99 02/22/18 20:00 Room Air 02/22/18 20:00 122 02/22/18 20:00 98.3 118 18 116/78 (91) 99 02/22/18 16:32 98.1 120 16 124/78 (93) 99 02/22/18 16:00 120 I/O 02/22/18 02/22/18 02/22/18 02/23/18 02/23/18 02/23/18 07:00 15:00 23:00 07:00 15:00 23:00 Intake Total 1558 ml 420 ml 240 ml Output Total 500 ml 900 ml 500 ml Balance 1058 ml -480 ml -260 ml Intake Oral 360 ml 420 ml 240 ml IV Total 578 ml Tube Feeding 320 ml Other 300 ml Output Urine Total 500 ml 900 ml 500 ml # Bowel Movements 0 2 2 Result Diagram: 02/21/18 0500 02/22/18 0606 Objective Remarks GENERAL: Not in distress, appears chronically ill, jaundiced. Icteric, pale conjunctivae CARDIOVASCULAR: Tachycardic, regular. RESPIRATORY: Clear to auscultation. Breath sounds equal bilaterally. No wheezes , rales, or rhonchi. GASTROINTESTINAL: Abdomen soft, non-tender,distended. Mildly tender MUSCULOSKELETAL: Extremities without clubbing, cyanosis, or edema. NEURO: Awake, alert, oriented. No asterixis. Procedures dobhoff tube placement. A/P Problem List: (1) ELKIN (acute kidney injury) ICD Code: N17.9 - Acute kidney failure, unspecified Status: Acute (2) Acute pancreatitis ICD Code: K85.90 - Acute pancreatitis without necrosis or infection, unspecified Status: Acute (3) Failure to thrive Status: Acute (4) End-stage liver disease ICD Code: K72.90 - Hepatic failure, unspecified without coma Status: Chronic Assessment and Plan Failure to thrive Patient not eating or drinking well due to ESLD. S/p Dobbhoff placement by interventional radiology. However the tube was not functional and it was removed, reconsulted IR and dobhoff was replaced and tube feeding was restarted. GI following. Consulted palliative care for ESLD, family/patient wants to be aggressive. - PT/ OT. Family feels pt is too weak to go home. -Dobbhoff misplaced?, Check x-ray. ESLD - Chronic. S/t alcohol abuse. Has not been drinking for the past few months. GI consult appreciated. Resumed home medications lactulose, pentoxifylline, vitamine B12 and rifaximin. - On ceftriaxone for possible SBP, for paracentesis but INR elevated, will give vitamin K -for paracentesis today. GI following, being evaluated for liver transplant at [facility]. Acute pancreatitis - Abdominal CT reviewed and shows cirrhosis, ascites, calcified gallstones, and 3 small metallic densities seen in the gastric lumen and proximal to mid small bowel. Lipase has improved. Pain control and antiemetics as needed, ADAT, resumed home pain medication, morphine IV for breakthrough. Acute kidney injury- creatine 2.0, resolved. -received gentle IV fluid with sodium bicarbonate -BMP tomorrow. Leukocytosis- chronic, had BM biopsy recently, f/u with hematology as outpatient. Aviation Project Manager recommends Vital 1.5 95 cc//hr x 12 with Enlive TID continue PT. poor prognosis. Discharge Planning No prior source, may benefit from rehab, positive has been consulted, family and patient wants to be aggressive. Discharge after paracenteses. Problem Qualifiers (1) Acute pancreatitis: Qualified Codes: K85.90 - Acute pancreatitis without necrosis or infection, unspecified (2) Failure to thrive: Qualified Codes: R62.7 - Adult failure to thrive Chelita Caba MD February 23, 2018 13:51
[2018-02-23] MEDS ORDERED: PHYTONADIONE 10 MG/ML VIAL SQ ONE (15:00)
[2018-02-23] MEDS: PROCHLORPERAZINE INJ 10 MG/2 ML VIAL IV PUSH PRN (17:02)
[2018-02-23] MEDS: MORPHINE SULFATE 4 MG/ML INJ IV PUSH PRN (19:27)
--- NOTE | 2018-02-23 21:54 | RADRPT ---
EXAM DATE: 02/23/2018 9:46 PM EDT AGE/SEX: 37 years / Male INDICATIONS: Evaluate Dobbhoff placement. CLINICAL DATA: This is the patient's subsequent encounter. Patient reports that signs and symptoms h ave been present for 2 weeks and indicates a pain score of 3/10. MEDICAL/SURGICAL HISTORY: . Liver Disease Alcohol abuse Hepatorenal Syndrome None. COMPARISON: Abdominal x-ray 02/17/2018. FINDINGS: Examination of the abdomen demonstrates a normal bowel gas pattern. The tip of the Dobbhoff tube proj ects at the location of the second portion of the duodenum. No free air is identified. No organomega ly is evident. Osseous structures are intact. CONCLUSION: Tip of the Dobbhoff tube in the second portion of the duodenum. Electronically signed by: Braden Akers MD 02/23/2018 9:52 PM EDT
[2018-02-24] VITALS (8 sets, daily range): BP systolic 116–134; BP diastolic 74–90; PULSE 105–122; RESP 16–20; TEMP 97.4–98.3; O2SAT 97–100
[2018-02-24] MEDS: FREE WATER G-TUBE SCH ×3 (06:47→20:40)
[2018-02-24] MEDS: PENTOXIFYLLINE 400 MG CONTROLLED RELEASE TAB PO SCH ×3 (06:48→20:40)
[2018-02-24] MEDS: MIDODRINE 5 MG TAB PO SCH ×3 (06:48→17:10)
[2018-02-24] MEDS: RIFAXIMIN 200 MG TAB PO SCH ×3 (06:48→20:39)
[2018-02-24 07:32] LABS: PROTHROMBIN TIME - PATIENT 20.4 SEC (9.8-11.6)
[2018-02-24] MEDS: SPIRONOLACTONE 100 MG TAB PO SCH (09:03)
[2018-02-24] MEDS: LACTULOSE SYRUP 20 GM/30 ML CUP PO SCH ×3 (09:03→17:10)
[2018-02-24] MEDS: FOLIC ACID 1 MG TAB PO SCH (09:03)
[2018-02-24] MEDS: PANTOPRAZOLE SOD 40 MG DELAYED RELEASE TAB PO SCH (09:03)
[2018-02-24] MEDS: CHOLECALCIFEROL (VIT D3) 1000 UNIT TAB PO SCH (09:03)
[2018-02-24] MEDS: SODIUM CHLORIDE 0.9% FLUSH 10 ML FLUSH IV FLUSH SCH ×2 (09:03→20:40)
[2018-02-24] MEDS: CHOLESTYRAMINE 4 GM PACKET PO SCH ×3 (09:03→17:10)
[2018-02-24] MEDS: cefTRIAXone INJ 1,000 MG in SODIUM CHLORIDE 0.9% INJ 100 ML IV SCH (09:03)
[2018-02-24] MEDS: CYANOCOBALAMIN 100 MCG TAB PO SCH (09:04)
[2018-02-24] MEDS: PROCHLORPERAZINE INJ 10 MG/2 ML VIAL IV PUSH PRN (11:42)
--- NOTE | 2018-02-24 12:10 | HHI.HCPN ---
Palliative care continues to follow Mr. العلي to assist with communication, symptoms, and support for patient and family. Mother at bedside. She reports her is currently at the social security office attempting to get clarification on patient's medicaid. [facility] social security office informed her Mr. العلي had been approved but when she contacted the medicaid office they show his status as pending. Unfortunately discharge plans are unable to be fully clarified until insurance/coverage is clarified. Mother indicates she wishes to take Mr. العلي home. Community resources provided to mother to private obtain medical supplies however medication pump would not be available unless patient is being followed by home health or hospice. Mother reviews she met with hospice previously, has a good understanding of their services and states "we are not ready for that yet". She is open to home health if that is possible. Mr. العلي is currently lying in bed, eyes closed. He does open eyes to verbal stimuli during my discussion with mom. He states he is "not having a good day". Inquires about paracentesis but does not engage much in conversation other than that. Resources and palliative care contact information provided to mother. Questions and concerns answered to the best of my ability. Palliative care will continue to follow throughout hospitalization. Genesis Akers, ASH Feb 24, 2018 12:10
[2018-02-24] MEDS ORDERED: ALBUMIN 25% INJ 0 ML IV ONE (14:15)
[2018-02-24] MEDS ORDERED: LIDOCAINE HCL 1% PF 30 ML VIAL ONE (14:19)
--- NOTE | 2018-02-24 15:15 | RADRPT ---
EXAM DATE: 02/24/2018 3:07 PM EDT AGE/SEX: 37 years / Male INDICATIONS: Ascites. CLINICAL DATA: This is the patient's sequela encounter. Patient reports that signs and symptoms have been present for 1 week and indicates a pain score of 0/10. MEDICAL/SURGICAL HISTORY: . Renal disease. End stage liver disease. Chronic leukocytosis. . Pa racentesis. NG tube placement. COMPARISON: [facility] [place] GUIDED ABD PARACENTESIS, 02/14/2018. . No external comparison. FLUID: Total volume of 10,500 cc of clear, yellow fluid was removed. Fluid was discarded. . . TECHNIQUE: Ultrasound guidance for abdominal paracentesis. Paracentesis. The risks, benefits, and alternatives to ultrasound guided paracentesis were explained to the patient in detail including the risk of bleeding and infection. Written and verbal informed consent was obt ained. With the patient on the ultrasound table, ultrasound imaging was used to select the most appropriate approach for paracentesis. Overlying skin was prepped and draped in the usual sterile fashion and wi th a local anesthetic, a dermatotomy was made with an 11 blade scalpel. A 6 [place] Saf-T -centesis c atheter was introduced into the peritoneal cavity and fluid was collected. Post procedure scanning reveals no hematoma or other complication. The patient tolerated the procedu re well and left the ultrasound suite in stable condition. CONCLUSION: Uncomplicated paracentesis. Patient received albumin per protocol. Electronically signed by: Roly Brantley MD 02/24/2018 3:13 PM EDT
--- NOTE | 2018-02-24 17:23 | HHI.PR ---
Subjective Remarks Patient appears jaundiced, sleepy, but arousable. He does not appear in any overt pain however he is interested in maintaining his rest, stating that he is very tired. Objective Vitals Vital Signs Date Time Temp Pulse Resp B/P (MAP) Pulse Ox O2 Delivery O2 Flow Rate FiO2 02/24/18 15:12 115 18 117/81 (93) 100 02/24/18 14:55 110 18 118/81 (93) 100 02/24/18 13:26 98.3 120 16 131/90 (104) 100 02/24/18 08:00 97.5 110 18 121/79 (93) 99 02/24/18 08:00 Room Air 02/24/18 08:00 118 02/24/18 04:00 98.3 122 16 134/74 (94) 99 02/24/18 00:00 97.9 122 16 116/74 (88) 97 02/23/18 20:00 98.2 120 17 136/83 (100) 99 02/23/18 20:00 Room Air I/O 02/23/18 02/23/18 02/23/18 02/24/18 02/24/18 02/24/18 07:00 15:00 23:00 07:00 15:00 23:00 Intake Total 240 ml 240 ml 240 ml Output Total 500 ml 75 ml 400 ml Balance -260 ml 165 ml -160 ml Intake Oral 240 ml 240 ml 240 ml Output Urine Total 500 ml 75 ml 400 ml # Bowel Movements 2 2 1 Result Diagram: 02/21/18 0500 02/22/18 0606 Objective Remarks GENERAL: Jaundiced, cachectic with ascites, decompensated SKIN: Warm and dry. Jaundice HEAD: Normocephalic. Dobbhoff tube in place EYES: scleral icterus. No injection or drainage. NECK: Supple, trachea midline. No JVD or lymphadenopathy. CARDIOVASCULAR: Tachycardia without murmurs, gallops, or rubs. RESPIRATORY: Breath sounds diminished in bilateral bases. No accessory muscle use. GASTROINTESTINAL: Abdomen fluid-filled, ascites, still moderately soft, normal active bowel sounds EXTREMITIES: No cyanosis, or edema. NEUROLOGICAL: Arousable but sleepy, oriented x 3. Non-focal. Procedures dobhoff tube placement. A/P Problem List: (1) ELKIN (acute kidney injury) ICD Code: N17.9 - Acute kidney failure, unspecified Status: Acute (2) Acute pancreatitis ICD Code: K85.90 - Acute pancreatitis without necrosis or infection, unspecified Status: Acute (3) Failure to thrive Status: Acute (4) End-stage liver disease ICD Code: K72.90 - Hepatic failure, unspecified without coma Status: Chronic Assessment and Plan End-stage liver disease with ascites History of chronic alcohol abuse Paracentesis occurred today, was delayed by elevated INR which came down to 2.0 following vitamin K Continuing home medications of lactulose, pentoxifylline, vitamin B12, rifaximin Empiric coverage with ceftriaxone for possible SBP Patient will need liver transplant, otherwise prognosis is grim Appreciate gastroenterology consult and intervention Acute pancreatitis Lipase is improving, will follow level, expecting more rapid improvement following paracentesis Continue pain control and antiemetics as needed Leukocytosis Reported as chronic, he follows hematology as outpatient Failure to thrive Patient has not been eating or drinking well due to recent ascites Dobbhoff tube placed in the past but became on functional and was removed Interventional radiology replace Dobbhoff tube during this stay, tube feeding resumed Family and patient would like to be aggressive regarding treatment options for end-stage liver disease Continue PT and OT We will discuss rehab Discharge Planning Patient will be qualified for rehab but has no payer source outside of [facility] Problem Qualifiers (1) Acute pancreatitis: Qualified Codes: K85.90 - Acute pancreatitis without necrosis or infection, unspecified (2) Failure to thrive: Qualified Codes: R62.7 - Adult failure to thrive Adal Gramajo MD Feb 24, 2018 17:23
[2018-02-24] MEDS: hydrOXYzine HCL 50 MG TAB PO PRN (18:52)
[2018-02-25] VITALS (8 sets, daily range): BP systolic 115–134; BP diastolic 69–91; PULSE 110–126; RESP 18–19; TEMP 97.5–98.6; O2SAT 99–100
[2018-02-25] MEDS: PROCHLORPERAZINE INJ 10 MG/2 ML VIAL IV PUSH PRN ×3 (00:10→22:10)
[2018-02-25] MEDS: hydrOXYzine HCL 50 MG TAB PO PRN ×3 (00:58→22:27)
[2018-02-25] MEDS: MORPHINE SULFATE 4 MG/ML INJ IV PUSH PRN (04:30)
[2018-02-25] MEDS: FREE WATER G-TUBE SCH ×3 (06:00→22:08)
[2018-02-25] MEDS: MIDODRINE 5 MG TAB PO SCH ×3 (06:54→16:35)
[2018-02-25] MEDS: RIFAXIMIN 200 MG TAB PO SCH ×3 (06:54→22:07)
[2018-02-25] MEDS: PENTOXIFYLLINE 400 MG CONTROLLED RELEASE TAB PO SCH ×3 (06:54→22:07)
[2018-02-25] MEDS: CYANOCOBALAMIN 100 MCG TAB PO SCH (09:00)
[2018-02-25] MEDS: CHOLESTYRAMINE 4 GM PACKET PO SCH ×3 (10:43→16:33)
[2018-02-25] MEDS: LACTULOSE SYRUP 20 GM/30 ML CUP PO SCH ×3 (10:45→16:33)
[2018-02-25] MEDS: PANTOPRAZOLE SOD 40 MG DELAYED RELEASE TAB PO SCH (10:47)
[2018-02-25] MEDS: SPIRONOLACTONE 100 MG TAB PO SCH (10:47)
[2018-02-25] MEDS: FOLIC ACID 1 MG TAB PO SCH (10:48)
[2018-02-25] MEDS: CHOLECALCIFEROL (VIT D3) 1000 UNIT TAB PO SCH (10:48)
[2018-02-25] MEDS: SODIUM CHLORIDE 0.9% FLUSH 10 ML FLUSH IV FLUSH SCH ×2 (10:49→22:08)
[2018-02-25] MEDS: cefTRIAXone INJ 1,000 MG in SODIUM CHLORIDE 0.9% INJ 100 ML IV SCH ×2 (11:10→13:15)
--- NOTE | 2018-02-25 17:36 | HHI.PR ---
Subjective Remarks Patient appears more awake today. He is not happy that he is not going home today. He underwent a paracentesis yesterday with 10 L drained from his abdomen. Objective Vitals Vital Signs Date Time Temp Pulse Resp B/P (MAP) Pulse Ox O2 Delivery O2 Flow Rate FiO2 02/25/18 12:00 97.8 117 18 121/80 (94) 100 02/25/18 08:00 98.0 120 18 125/73 (90) 99 02/25/18 04:00 126 02/25/18 04:00 97.6 124 18 118/76 (90) 99 02/25/18 00:00 97.5 122 18 134/89 (104) 100 02/25/18 00:00 123 02/24/18 20:00 117 02/24/18 20:00 Room Air 02/24/18 20:00 97.7 117 20 122/88 (99) 100 I/O 02/24/18 02/24/18 02/24/18 02/25/18 02/25/18 02/25/18 07:00 15:00 23:00 07:00 15:00 23:00 Intake Total 240 ml 480 ml Output Total 400 ml 800 ml Balance -160 ml 480 ml -800 ml Intake Oral 240 ml 480 ml Output Urine Total 400 ml 800 ml # Voids 1 # Bowel Movements 1 4 Result Diagram: 02/21/18 0500 02/22/18 0606 Objective Remarks GENERAL: Jaundiced, cachectic, weak SKIN: Warm and dry. Jaundice HEAD: Normocephalic. Dobbhoff tube in place EYES: scleral icterus. No injection or drainage. NECK: Supple, trachea midline. No JVD or lymphadenopathy. CARDIOVASCULAR: Tachycardia without murmurs, gallops, or rubs. RESPIRATORY: Breath sounds diminished in bilateral bases. No accessory muscle use. GASTROINTESTINAL: Abdomen is soft, nontender, normal active bowel sounds, no more ascites EXTREMITIES: No cyanosis, or edema. NEUROLOGICAL: Arousable but sleepy, oriented x 3. Non-focal. Procedures dobhoff tube placement. A/P Problem List: (1) ELKIN (acute kidney injury) ICD Code: N17.9 - Acute kidney failure, unspecified Status: Acute (2) Acute pancreatitis ICD Code: K85.90 - Acute pancreatitis without necrosis or infection, unspecified Status: Acute (3) Failure to thrive Status: Acute (4) End-stage liver disease ICD Code: K72.90 - Hepatic failure, unspecified without coma Status: Chronic Assessment and Plan End-stage liver disease with ascites History of chronic alcohol abuse Paracentesis performed yesterday removed 10 L of ascitic fluid Continuing home medications of lactulose, pentoxifylline, vitamin B12, rifaximin Empiric coverage with ceftriaxone for possible SBP Patient will need liver transplant, otherwise prognosis is grim CMP and ammonia level ordered with a.m. labs Appreciate gastroenterology consult and intervention Acute pancreatitis Lipase is improving, will follow level, expect more rapid improvement following paracentesis Continue pain control and antiemetics as needed Lipase ordered with a.m. labs Leukocytosis Reported as chronic, he follows hematology as outpatient CBC with a.m. labs Failure to thrive Patient has not been eating or drinking well due to recent ascites Dobbhoff tube placed in the past but became on functional and was removed Interventional radiology replace Dobbhoff tube during this stay, tube feeding resumed Family and patient would like to be aggressive regarding treatment options for end-stage liver disease Continue PT and OT, attempt ambulation prior to discharge FEN 3 times daily manual can feeding Via Dobbhoff tube ordered to replace continuous overnight feeding Patient had nausea with continuous overnight feeds Family has also been unable to locate and pay for a feeding pump Discharge Planning Patient will be qualified for rehab but has no payer source outside of [facility] Problem Qualifiers (1) Acute pancreatitis: Qualified Codes: K85.90 - Acute pancreatitis without necrosis or infection, unspecified (2) Failure to thrive: Qualified Codes: R62.7 - Adult failure to thrive Adal Gramajo MD Feb 25, 2018 17:36
[2018-02-26] VITALS (9 sets, daily range): BP systolic 112–124; BP diastolic 73–79; PULSE 110–127; RESP 18–20; TEMP 97.2–98.4; O2SAT 97–100
[2018-02-26] MEDS: FREE WATER G-TUBE SCH ×3 (06:00→22:00)
[2018-02-26] MEDS: RIFAXIMIN 200 MG TAB PO SCH ×3 (06:25→22:04)
[2018-02-26] MEDS: PENTOXIFYLLINE 400 MG CONTROLLED RELEASE TAB PO SCH ×3 (06:25→22:05)
[2018-02-26] MEDS: hydrOXYzine HCL 50 MG TAB PO PRN ×3 (06:25→22:05)
[2018-02-26] MEDS: MIDODRINE 5 MG TAB PO SCH ×3 (06:25→17:30)
[2018-02-26 07:47] LABS: AUTOMATED NEUTROPHIL # 20.4 TH/MM3 (1.8-7.7); BASOPHIL # 0.1 TH/MM3 (0-0.2); BASOPHIL % 0.4 % (0.0-2.0); EOSINOPHIL # 0.5 TH/MM3 (0-0.4); EOSINOPHIL % 1.8 % (0.0-4.0); HEMATOCRIT 31.9 % (39.0-51.0); HEMOGLOBIN 10.6 GM/DL (13.0-17.0); LYMPH % 8.8 % (9.0-44.0); LYMPHOCYTE # 2.3 TH/MM3 (1.0-4.8); MEAN CELL VOLUME 100.7 FL (80.0-100.0); MEAN CORPUSCULAR HEMOGLOBIN 33.5 PG (27.0-34.0); MEAN CORPUSCULAR HGB CONC 33.3 % (32.0-36.0); MEAN PLATELET VOLUME 9.1 FL (7.0-11.0); MONO % 9.5 % (0.0-8.0); MONOCYTE # 2.4 TH/MM3 (0-0.9); NEUT % 79.5 % (16.0-70.0); PLATELET COUNT 203 TH/MM3 (150-450); RED BLOOD COUNT 3.16 MIL/MM3 (4.50-5.90); RED CELL DISTRIBUTION WIDTH 16.6 % (11.6-17.2); WHITE BLOOD COUNT 25.6 TH/MM3 (4.0-11.0)
[2018-02-26] MEDS: CHOLECALCIFEROL (VIT D3) 1000 UNIT TAB PO SCH (08:10)
[2018-02-26] MEDS: SPIRONOLACTONE 100 MG TAB PO SCH (08:10)
[2018-02-26] MEDS: CHOLESTYRAMINE 4 GM PACKET PO SCH ×3 (08:10→17:30)
[2018-02-26] MEDS: CYANOCOBALAMIN 100 MCG TAB PO SCH (08:10)
[2018-02-26] MEDS: FOLIC ACID 1 MG TAB PO SCH (08:10)
[2018-02-26] MEDS: SODIUM CHLORIDE 0.9% FLUSH 10 ML FLUSH IV FLUSH SCH ×2 (08:11→21:00)
[2018-02-26] MEDS: cefTRIAXone INJ 1,000 MG in SODIUM CHLORIDE 0.9% INJ 100 ML IV SCH (08:11)
[2018-02-26] MEDS: LACTULOSE SYRUP 20 GM/30 ML CUP PO SCH ×3 (08:11→17:30)
[2018-02-26] MEDS: PANTOPRAZOLE SOD 40 MG DELAYED RELEASE TAB PO SCH (08:11)
[2018-02-26 08:15] LABS: ALBUMIN 2.5 GM/DL (3.4-5.0); AST (GOT) 51 U/L (15-37); BICARBONATE 14.3 MEQ/L (21.0-32.0); BLOOD UREA NITROGEN 22 MG/DL (7-18); CALCIUM 8.8 MG/DL (8.5-10.1); CHLORIDE 104 MEQ/L (98-107); CREATININE 0.97 MG/DL (0.60-1.30); GLOMERULAR FILTRATION RATE 86 ML/MIN (>89); GLUCOSE,RANDOM 105 MG/DL (74-106); SODIUM (NA) 129 MEQ/L (136-145)
[2018-02-26 08:16] LABS: ALT (GPT) 58 U/L (12-78)
[2018-02-26 08:18] LABS: ALKALINE PHOSPHATASE 178 U/L (45-117); TOTAL BILIRUBIN ADULT 12.9 MG/DL (0.2-1.0); TOTAL PROTEIN 5.8 GM/DL (6.4-8.2)
[2018-02-26 11:33] LABS: BANDS 7 % (0-6); LYMPHOCYTES 10 % (9-44); METAMYELOCYTES 1 % (0-1); MONOCYTES 7 % (0-8); POLYS (SEG NEUTROPHILS) 74 % (16-70)
--- NOTE | 2018-02-26 12:16 | HHI.PR ---
Subjective Remarks 6-2 Patient appears more awake today. He is not happy that he is not going home today. He underwent a paracentesis yesterday with 10 L drained from his abdomen. 6-3 PATIENT IS VERY LETHARGIC TODAY DW RN AND PT AND FAMILY NEEDS PT AND OT FAMILY WANTS TO GO TO [place] ONCE HAS INSURANCE A.m. labs Objective Vitals Vital Signs Date Time Temp Pulse Resp B/P (MAP) Pulse Ox O2 Delivery O2 Flow Rate FiO2 02/26/18 10:12 Room Air 02/26/18 08:00 97.5 117 18 118/73 (88) 99 02/26/18 04:00 Room Air 02/26/18 04:00 97.3 113 18 124/79 (94) 97 02/26/18 03:44 110 02/26/18 00:00 Room Air 02/26/18 00:00 97.2 116 18 123/75 (91) 99 02/25/18 23:43 110 02/25/18 20:00 98.6 114 19 134/91 (105) 100 02/25/18 20:00 Room Air 02/25/18 19:45 114 02/25/18 16:00 98.3 119 18 115/69 (84) 99 I/O 02/25/18 02/25/18 02/25/18 02/26/18 02/26/18 02/26/18 07:00 15:00 23:00 07:00 15:00 23:00 Intake Total 480 ml 1350 ml Output Total 800 ml 200 ml 1600 ml Balance -800 ml 280 ml -250 ml Intake Oral 480 ml 1350 ml Output Urine Total 800 ml 200 ml 1600 ml # Bowel Movements 4 1 4 Result Diagram: 02/26/1818 02/26/1818 Other Results Laboratory Tests Test 02/24/18 07:05 02/26/18 07:18 Prothrombin Time 20.4 SEC Prothromb Time International Ratio 2.0 RATIO White Blood Count 25.6 TH/MM3 Red Blood Count 3.16 MIL/MM3 Hemoglobin 10.6 GM/DL Hematocrit 31.9 % Mean Corpuscular Volume 100.7 FL Mean Corpuscular Hemoglobin 33.5 PG Mean Corpuscular Hemoglobin Concent 33.3 % Red Cell Distribution Width 16.6 % Platelet Count 203 TH/MM3 Mean Platelet Volume 9.1 FL Neutrophils (%) (Auto) 79.5 % Lymphocytes (%) (Auto) 8.8 % Monocytes (%) (Auto) 9.5 % Eosinophils (%) (Auto) 1.8 % Basophils (%) (Auto) 0.4 % Neutrophils # (Auto) 20.4 TH/MM3 Lymphocytes # (Auto) 2.3 TH/MM3 Monocytes # (Auto) 2.4 TH/MM3 Eosinophils # (Auto) 0.5 TH/MM3 Basophils # (Auto) 0.1 TH/MM3 CBC Comment AUTO DIFF Differential Total Cells Counted 100 Neutrophils % (Manual) 74 % Band Neutrophils % 7 % Lymphocytes % 10 % Monocytes % 7 % Eosinophils % 1 % Neutrophils # (Manual) 21.0 TH/MM3 Metamyelocytes 1 % Differential Comment FINAL DIFF MANUAL Platelet Estimate NORMAL Platelet Morphology Comment NORMAL Blood Urea Nitrogen 22 MG/DL Creatinine 0.97 MG/DL Random Glucose 105 MG/DL Total Protein 5.8 GM/DL Albumin 2.5 GM/DL Calcium Level 8.8 MG/DL Alkaline Phosphatase 178 U/L Aspartate Amino Transf (AST/SGOT) 51 U/L Alanine Aminotransferase (ALT/SGPT) 58 U/L Total Bilirubin 12.9 MG/DL Sodium Level 129 MEQ/L Potassium Level 4.5 MEQ/L Chloride Level 104 MEQ/L Carbon Dioxide Level 14.3 MEQ/L Anion Gap 11 MEQ/L Estimat Glomerular Filtration Rate 86 ML/MIN Ammonia 19 MCMOL/L Lipase 678 U/L Imaging Last Impressions Cyst Biopsy Asp-Paracentesis US 02/24/18 0000 Signed Impressions: CONCLUSION: Uncomplicated paracentesis. Patient received albumin per protocol. Abdomen X-Ray 02/23/18 Signed Impressions: CONCLUSION: Tip of the Dobbhoff tube in the second portion of the duodenum. Abdomen Fluoroscopy 02/21/18 Signed Impressions: CONCLUSION: 1. Uncomplicated Dobbhoff tube placement as above. Abdomen/Pelvis CT 02/14/18 Signed Impressions: CONCLUSION: 1. Suspected cirrhotic appearance of the liver. 2. Moderate ascites. 3. Small calcified gallstones. 4. 3 small metallic densities are seen within the gastric lumen and proximal t o mid small bowel. These are of uncertain etiology. 5. Linear atelectasis or consolidation at the right lower lobe. Objective Remarks GENERAL: Lethargic not answering too many questions --not really awake or oriented at this time SKIN: Warm and dry. Jaundiced HEAD: Atraumatic. Normocephalic. EYES: Pupils equal and round. Positive scleral icterus. No injection or drainage. ENT: No nasal bleeding or discharge. Mucous membranes pink and moist. NECK: Trachea midline. No JVD. CARDIOVASCULAR: Regular rate and rhythm. S1-S2 no S3 or S4 RESPIRATORY: No accessory muscle use. Clear to auscultation. Breath sounds equal bilaterally. GASTROINTESTINAL: Abdomen soft, non-tender,Hepatic and splenic margins not palpable. Distended MUSCULOSKELETAL: Extremities without clubbing, cyanosis, or edema. No obvious deformities. NEUROLOGICAL: NOT Awake and alert. No obvious cranial nerve deficits. Motor grossly within normal limits. 4 out of 5 muscle strength in the arms and legs. ABNormal speech. PSYCHIATRIC: INAppropriate mood and affect; insight and judgment ABnormal. Procedures dobhoff tube placement. PARACENTESIS 10L Medications and IVs Current Medications Morphine Sulfate (Morphine Inj) 4 mg ONCE ONCE IV PUSH ; Start 02/14/18 at 17: 15; Stop 02/14/18 at 17:48; Status DC Ondansetron HCl (Zofran Odt) 4 mg ONCE ONCE PO Last administered on at 17:40; Start 02/14/18 at 17:45; Stop 02/14/18 at 17:46; Status DC Oxycodone HCl (Roxicodone) 5 mg ONCE ONCE PO Last administered on 02/14/18at 18 :01; Start 02/14/18 at 18:00; Stop 02/14/18 at 18:01; Status DC Sodium Chloride (NS Flush) 2 ml UNSCH PRN IV FLUSH FLUSH AFTER USING IV ACCESS Last administered on 02/20/18at 23:33; Start 02/14/18 at 20:15 Sodium Chloride (NS Flush) 2 ml BID IV FLUSH Last administered on 02/26/18at 08: 11; Start 02/14/18 at 21:00 Ondansetron HCl (Zofran Inj) 4 mg Q6H PRN IVP NAUSEA OR VOMITING; Start at 20:15; Stop 02/14/18 at 21:40; Status DC Naloxone HCl (Narcan Inj) 0.4 mg UNSCH PRN IV PUSH SEE LABEL COMMENTS; Start at 20:15 Magnesium Hydroxide (Milk Of Magnesia Liq) 30 ml Q12H PRN PO Mild constipation ; Start 02/14/18 at 20:15 Sennosides (Senokot) 17.2 mg Q12H PRN PO Moderate constipation; Start 02/14/18 at 20:15 Bisacodyl (Dulcolax Supp) 10 mg DAILY PRN RECTAL SEVERE CONSITIPATION; Start at 20:15 Lactulose (Lactulose Liq) 30 ml DAILY PRN PO SEVERE CONSITIPATION; Start at 20:15 Cholecalciferol (Vitamin D3) 1,000 units DAILY PO Last administered on 08:10; Start 02/15/18 at 09:00 Cholestyramine Resin (Questran 4 Gm Pkt) 4 gm TIDAC PO Last administered on 02/26 08:10; Start 02/15/18 at 08:00 Cyanocobalamin (Vitamin B12) 100 mcg DAILY PO Last administered on 02/26/18 08: 10; Start 02/15/18 at 09:00 Folic Acid (Folate) 1 mg DAILY PO Last administered on 02/26/18 08:10; Start at 09:00 Hydroxyzine HCl (Atarax) 50 mg Q6H PRN PO itching Last administered on 06:25; Start 02/14/18 at 21:00 Hydroxyzine HCl (Atarax) 50 mg TID PRN PO ITCHING; Start 02/14/18 at 21:00; Status UNV Lactulose (Lactulose Liq) 40 ml TID PO Last administered on 02/26/18 08:11; Start 02/15/18 at 09:00 Midodrine (Proamatine) 2.5 mg TID@07,12,17 PO Last administered on 02/26/18 06: 25; Start 02/15/18 at 07:00 Oxycodone HCl (Roxicodone) 5 mg Q4H PRN PO PAIN Last administered on 02/26/18 11:01; Start 02/14/18 at 21:00 Pantoprazole Sodium (Protonix) 40 mg DAILY PO Last administered on 02/26/18 08: 11; Start 02/15/18 at 09:00 Pentoxifylline (TRENtal SR) 400 mg Q8H PO Last administered on 02/26/18at 06:25; Start 02/14/18 at 22:00 Potassium Chloride (KCl) 20 meq BID PO ; Start 02/14/18 at 21:00; Stop 02/14/18 at 21:14; Status DC Miscellaneous (Pill Splitter) 1 ea UNSCH PRN OTHER SEE LABEL COMMENTS; Start at 21:00 Dextrose/Sodium Chloride 1,000 ml @ 100 mls/hr Q10H IV Last administered on at 17:05; Start 02/14/18 at 21:45; Stop 02/17/18 at 10:46; Status DC Morphine Sulfate (Morphine Inj) 2 mg Q3H PRN IV PUSH BREAKTHROUGH PAIN Last administered on 02/25/18at 04:30; Start 02/14/18 at 21:45 Ondansetron HCl (Zofran Odt) 4 mg Q6H PRN SL nausea Last administered on at 15:52; Start 02/14/18 at 21:45; Stop 02/18/18 at 17:18; Status DC Rifaximin (Xifaxan) 400 mg Q8HR PO Last administered on 02/26/18at 06:25; Start 02/14/18 at 22:00 Spironolactone (Aldactone) 100 mg DAILY PO ; Start 02/15/18 at 09:00; Stop 02/15 at 09:00; Status DC Metoclopramide HCl (Reglan Inj) 5 mg ONCE ONCE IV PUSH Last administered on at 16:30; Start 02/15/18 at 16:30; Stop 02/15/18 at 16:31; Status DC Ceftriaxone Sodium 1000 mg/ Sodium Chloride 100 ml @ 200 mls/hr Q12H IV Last administered on 02/23/18at 05:37; Start 02/15/18 at 17:00; Stop 02/23/18 at 14:55 ; Status DC Lorazepam (Ativan Inj) 2 mg STK-MED ONCE .ROUTE Last administered on 02/16/18at 13:17; Start 02/16/18 at 13:17; Stop 02/16/18 at 13:18; Status DC Water (Free Water) VOLUME OF WATER: (300) ML Q8HR G-TUBE Last administered on 06:00; Start 02/16/18 at 22:00; Stop 02/17/18 at 10:47; Status DC Water (Free Water) VOLUME OF WATER: (300) ML Q8HR G-TUBE Last administered on 06:00; Start 02/17/18 at 14:00 Metoclopramide HCl (Reglan Inj) 5 mg ONCE ONCE IV PUSH Last administered on at 15:43; Start 02/17/18 at 15:45; Stop 02/17/18 at 15:46; Status DC Metoclopramide HCl (Reglan Inj) 5 mg ONCE ONCE IV PUSH Last administered on at 09:27; Start 02/18/18 at 08:15; Stop 02/18/18 at 08:16; Status DC Prochlorperazine Edisylate (Compazine Inj) 10 mg Q8H PRN IV PUSH nausea Last administered on 02/25/18at 22:10; Start 02/18/18 at 17:30 Spironolactone (Aldactone) 100 mg DAILY PO Last administered on 02/26/18 08:10 ; Start 02/18/18 at 19:30 Albumin Human 100 ml @ 60 mls/hr Q12H IV Last administered on 02/21/18at 09:29 ; Start 02/18/18 at 20:00; Stop 02/21/18 at 19:59; Status DC Sodium Bicarbonate 50 meq/Dextrose 1,050 ml @ 42 mls/hr Q24H ONCE IV Last administered on 02/21/18at 12:42; Start 02/21/18 at 11:00; Stop 02/22/18 at 10:59 ; Status DC Ceftriaxone Sodium 1000 mg/ Sodium Chloride 100 ml @ 200 mls/hr DAILY IV Last administered on 02/26/18 08:11; Start 02/24/18 at 09:00 Phytonadione (Vitamin K Inj) 5 mg ONCE ONCE SQ Last administered on 02/23/18at 17:02; Start 02/23/18 at 15:00; Stop 02/23/18 at 15:06; Status DC Albumin Human 0 ml @ 60 mls/hr ONCE ONCE IV Last administered on 6/1/18at 15: 34; Start 02/24/18 at 14:15; Stop 02/24/18 at 14:19; Status DC Lidocaine HCl (Xylocaine-Mpf 1% Inj) 30 ml STK-MED ONCE .ROUTE Last administered on 02/24/18at 14:19; Start 02/24/18 at 14:19; Stop 02/24/18 at 14:20; Status DC A/P Problem List: (1) ELKIN (acute kidney injury) ICD Code: N17.9 - Acute kidney failure, unspecified Status: Acute (2) Acute pancreatitis ICD Code: K85.90 - Acute pancreatitis without necrosis or infection, unspecified Status: Acute (3) Failure to thrive Status: Acute (4) End-stage liver disease ICD Code: K72.90 - Hepatic failure, unspecified without coma Status: Chronic Assessment and Plan End-stage liver disease with ascites History of chronic alcohol abuse Paracentesis performed yesterday removed 10 L of ascitic fluid Continuing home medications of lactulose, pentoxifylline, vitamin B12, rifaximin Empiric coverage with ceftriaxone for possible SBP Patient will need liver transplant, otherwise prognosis is grim CMP and ammonia level ordered with a.m. labs Appreciate gastroenterology consult and intervention Acute pancreatitis Lipase is improving, will follow level, expect more rapid improvement following paracentesis Continue pain control and antiemetics as needed Lipase ordered with a.m. labs Leukocytosis Reported as chronic, he follows hematology as outpatient CBC with a.m. labs Failure to thrive Patient has not been eating or drinking well due to recent ascites Dobbhoff tube placed in the past but became on functional and was removed Interventional radiology replace Dobbhoff tube during this stay, tube feeding resumed Family and patient would like to be aggressive regarding treatment options for end-stage liver disease Continue PT and OT, attempt ambulation prior to discharge FEN 3 times daily manual can feeding Via Dobbhoff tube ordered to replace continuous overnight feeding--family wants overnight feedings only now Patient had nausea with continuous overnight feeds Family has also been unable to locate and pay for a feeding pump Discharge Planning Patient will be qualified for rehab but has no payer source outside of [facility] Discharge Planning Family wants to go to [facility] after discharge once he has insurance Problem Qualifiers (1) Acute pancreatitis: Qualified Codes: K85.90 - Acute pancreatitis without necrosis or infection, unspecified (2) Failure to thrive: Qualified Codes: R62.7 - Adult failure to thrive Roly Braga DO Feb 26, 2018 12:16
[2018-02-26] MEDS: PROCHLORPERAZINE INJ 10 MG/2 ML VIAL IV PUSH PRN ×2 (14:48→22:04)
[2018-02-26 16:00] LABS: INTERNATIONAL NORMALIZED RATIO 1.3 RATIO; PROTHROMBIN TIME - PATIENT 13.6 SEC (9.8-11.6)
[2018-02-27] VITALS (11 sets, daily range): BP systolic 108–135; BP diastolic 74–78; PULSE 108–127; RESP 18–20; TEMP 97.3–98; O2SAT 98–100
[2018-02-27] MEDS: hydrOXYzine HCL 50 MG TAB PO PRN ×3 (04:46→21:01)
[2018-02-27] MEDS: FREE WATER G-TUBE SCH ×3 (06:00→21:02)
[2018-02-27] MEDS: MIDODRINE 5 MG TAB PO SCH ×3 (06:28→16:32)
[2018-02-27] MEDS: PENTOXIFYLLINE 400 MG CONTROLLED RELEASE TAB PO SCH ×3 (06:28→21:01)
[2018-02-27] MEDS: RIFAXIMIN 200 MG TAB PO SCH ×3 (06:28→21:01)
[2018-02-27] MEDS: CHOLESTYRAMINE 4 GM PACKET PO SCH ×3 (08:55→16:33)
[2018-02-27] MEDS: CHOLECALCIFEROL (VIT D3) 1000 UNIT TAB PO SCH (08:56)
[2018-02-27] MEDS: SPIRONOLACTONE 100 MG TAB PO SCH (08:56)
[2018-02-27] MEDS: PANTOPRAZOLE SOD 40 MG DELAYED RELEASE TAB PO SCH (08:56)
[2018-02-27] MEDS: CYANOCOBALAMIN 100 MCG TAB PO SCH (08:57)
[2018-02-27] MEDS: cefTRIAXone INJ 1,000 MG in SODIUM CHLORIDE 0.9% INJ 100 ML IV SCH (08:58)
[2018-02-27] MEDS: LACTULOSE SYRUP 20 GM/30 ML CUP PO SCH ×3 (08:58→18:39)
[2018-02-27] MEDS: PROCHLORPERAZINE INJ 10 MG/2 ML VIAL IV PUSH PRN ×2 (08:58→19:42)
[2018-02-27] MEDS: SODIUM CHLORIDE 0.9% FLUSH 10 ML FLUSH IV FLUSH SCH ×2 (08:58→21:01)
[2018-02-27] MEDS: FOLIC ACID 1 MG TAB PO SCH (09:03)
[2018-02-27 09:37] LABS: AUTOMATED NEUTROPHIL # 21.7 TH/MM3 (1.8-7.7); BASOPHIL # 0.1 TH/MM3 (0-0.2); BASOPHIL % 0.4 % (0.0-2.0); EOSINOPHIL # 0.4 TH/MM3 (0-0.4); EOSINOPHIL % 1.4 % (0.0-4.0); HEMATOCRIT 31.4 % (39.0-51.0); HEMOGLOBIN 10.6 GM/DL (13.0-17.0); LYMPH % 9.5 % (9.0-44.0); LYMPHOCYTE # 2.6 TH/MM3 (1.0-4.8); MEAN CELL VOLUME 99.8 FL (80.0-100.0); MEAN CORPUSCULAR HEMOGLOBIN 33.7 PG (27.0-34.0); MEAN CORPUSCULAR HGB CONC 33.7 % (32.0-36.0); MEAN PLATELET VOLUME 9.3 FL (7.0-11.0); MONO % 10.1 % (0.0-8.0); MONOCYTE # 2.8 TH/MM3 (0-0.9); NEUT % 78.6 % (16.0-70.0); PLATELET COUNT 224 TH/MM3 (150-450); RED BLOOD COUNT 3.15 MIL/MM3 (4.50-5.90); RED CELL DISTRIBUTION WIDTH 16.3 % (11.6-17.2); WHITE BLOOD COUNT 27.6 TH/MM3 (4.0-11.0)
[2018-02-27 09:56] LABS: ALBUMIN 2.4 GM/DL (3.4-5.0); AST (GOT) 51 U/L (15-37); BICARBONATE 11.8 MEQ/L (21.0-32.0); BLOOD UREA NITROGEN 26 MG/DL (7-18); CHLORIDE 104 MEQ/L (98-107); CREATININE 0.94 MG/DL (0.60-1.30); GLOMERULAR FILTRATION RATE 89 ML/MIN (>89); GLUCOSE,RANDOM 90 MG/DL (74-106); MAGNESIUM 1.8 MG/DL (1.5-2.5); SODIUM (NA) 128 MEQ/L (136-145)
[2018-02-27 10:06] LABS: ALKALINE PHOSPHATASE 183 U/L (45-117); ALT (GPT) 63 U/L (12-78); FREE T4 1.13 NG/DL (0.76-1.46); PHOSPHORUS 2.8 MG/DL (2.5-4.9); TOTAL BILIRUBIN ADULT 12.2 MG/DL (0.2-1.0); TOTAL PROTEIN 5.8 GM/DL (6.4-8.2)
[2018-02-27 10:10] LABS: BANDS 3 % (0-6); BASOPHILS 1 % (0-2); LYMPHOCYTES 9 % (9-44); MONOCYTES 5 % (0-8); NEUTROPHIL # MANUAL DIFF 23.2 TH/MM3 (1.8-7.7); POLYS (SEG NEUTROPHILS) 81 % (16-70)
[2018-02-27 10:12] LABS: ACANTHOCYTES 1+ (NORMAL); BURR CELLS 1+ (NORMAL)
--- NOTE | 2018-02-27 13:38 | HHI.PR ---
Subjective Remarks 6-2 Patient appears more awake today. He is not happy that he is not going home today. He underwent a paracentesis yesterday with 10 L drained from his abdomen. 6-3 PATIENT IS VERY LETHARGIC TODAY DW RN AND PT AND FAMILY NEEDS PT AND OT FAMILY WANTS TO GO TO [facility] ON[facility] HAS INSURANCE A.m. labs 6-4 TOLERATING TUBE FEEDS FAMILY WANTS TO TAKE HOME TOMORROW IF CAN GO HOME GETTING HOSPITAL BED DW RN AND PT AND FAMILY AM LABS Objective Vitals Vital Signs Date Time Temp Pulse Resp B/P (MAP) Pulse Ox O2 Delivery O2 Flow Rate FiO2 02/27/18 12:00 97.6 127 20 108/74 (85) 98 02/27/18 08:00 97.3 111 20 135/78 (97) 100 02/27/18 04:00 97.4 115 18 124/78 (93) 98 02/27/18 04:00 Room Air 02/27/18 03:54 115 02/27/18 00:00 98.0 114 18 116/77 (90) 99 02/27/18 00:00 Room Air 02/26/18 23:49 113 02/26/18 20:00 Room Air 02/26/18 20:00 98.4 119 20 112/76 (88) 100 02/26/18 19:47 120 02/26/18 16:00 98.2 123 18 112/73 (86) 99 02/26/18 16:00 120 I/O 02/26/18 02/26/18 02/26/18 02/27/18 02/27/18 02/27/18 07:00 15:00 23:00 07:00 15:00 23:00 Intake Total 1350 ml 240 ml 222 ml Output Total 1600 ml 500 ml 50 ml Balance -250 ml -260 ml 172 ml Intake Oral 1350 ml 240 ml 222 ml Output Urine Total 1600 ml 500 ml 50 ml # Bowel Movements 4 2 0 Result Diagram: 02/27/18 0849 02/27/18 0849 Other Results Laboratory Tests Test 02/26/18 07:18 02/26/18 15:15 02/27/18 08:49 White Blood Count 25.6 TH/MM3 27.6 TH/MM3 Red Blood Count 3.16 MIL/MM3 3.15 MIL/MM3 Hemoglobin 10.6 GM/DL 10.6 GM/DL Hematocrit 31.9 % 31.4 % Mean Corpuscular Volume 100.7 FL 99.8 FL Mean Corpuscular Hemoglobin 33.5 PG 33.7 PG Mean Corpuscular Hemoglobin Concent 33.3 % 33.7 % Red Cell Distribution Width 16.6 % 16.3 % Platelet Count 203 TH/MM3 224 TH/MM3 Mean Platelet Volume 9.1 FL 9.3 FL Neutrophils (%) (Auto) 79.5 % 78.6 % Lymphocytes (%) (Auto) 8.8 % 9.5 % Monocytes (%) (Auto) 9.5 % 10.1 % Eosinophils (%) (Auto) 1.8 % 1.4 % Basophils (%) (Auto) 0.4 % 0.4 % Neutrophils # (Auto) 20.4 TH/MM3 21.7 TH/MM3 Lymphocytes # (Auto) 2.3 TH/MM3 2.6 TH/MM3 Monocytes # (Auto) 2.4 TH/MM3 2.8 TH/MM3 Eosinophils # (Auto) 0.5 TH/MM3 0.4 TH/MM3 Basophils # (Auto) 0.1 TH/MM3 0.1 TH/MM3 CBC Comment AUTO DIFF AUTO DIFF Differential Total Cells Counted 100 100 Neutrophils % (Manual) 74 % 81 % Band Neutrophils % 7 % 3 % Lymphocytes % 10 % 9 % Monocytes % 7 % 5 % Eosinophils % 1 % 1 % Neutrophils # (Manual) 21.0 TH/MM3 23.2 TH/MM3 Metamyelocytes 1 % Differential Comment FINAL DIFF MANUAL FINAL DIFF MANUAL Platelet Estimate NORMAL NORMAL Platelet Morphology Comment NORMAL NORMAL Blood Urea Nitrogen 22 MG/DL 26 MG/DL Creatinine 0.97 MG/DL 0.94 MG/DL Random Glucose 105 MG/DL 90 MG/DL Total Protein 5.8 GM/DL 5.8 GM/DL Albumin 2.5 GM/DL 2.4 GM/DL Calcium Level 8.8 MG/DL 9.0 MG/DL Alkaline Phosphatase 178 U/L 183 U/L Aspartate Amino Transf (AST/SGOT) 51 U/L 51 U/L Alanine Aminotransferase (ALT/SGPT) 58 U/L 63 U/L Total Bilirubin 12.9 MG/DL 12.2 MG/DL Sodium Level 129 MEQ/L 128 MEQ/L Potassium Level 4.5 MEQ/L 5.0 MEQ/L Chloride Level 104 MEQ/L 104 MEQ/L Carbon Dioxide Level 14.3 MEQ/L 11.8 MEQ/L Anion Gap 11 MEQ/L 12 MEQ/L Estimat Glomerular Filtration Rate 86 ML/MIN 89 ML/MIN Ammonia 19 MCMOL/L 30 MCMOL/L Lipase 678 U/L Prothrombin Time 13.6 SEC Prothromb Time International Ratio 1.3 RATIO Basophils % 1 % Jordan Cells 1+ Acanthocytes 1+ Red Cell Morphology Comment Phosphorus Level 2.8 MG/DL Magnesium Level 1.8 MG/DL Free Thyroxine 1.13 NG/DL Thyroid Stimulating Hormone 3rd Gen 1.860 uIU/ML Imaging Last Impressions Cyst Biopsy Asp-Paracentesis US 02/24/18 Signed Impressions: CONCLUSION: Uncomplicated paracentesis. Patient received albumin per protocol. Abdomen X-Ray 02/23/18 Signed Impressions: CONCLUSION: Tip of the Dobbhoff tube in the second portion of the duodenum. Abdomen Fluoroscopy 02/21/18 Signed Impressions: CONCLUSION: 1. Uncomplicated Dobbhoff tube placement as above. Abdomen/Pelvis CT 02/14/18 Signed Impressions: CONCLUSION: 1. Suspected cirrhotic appearance of the liver. 2. Moderate ascites. 3. Small calcified gallstones. 4. 3 small metallic densities are seen within the gastric lumen and proximal t o mid small bowel. These are of uncertain etiology. 5. Linear atelectasis or consolidation at the right lower lobe. Objective Remarks GENERAL: Lethargic not answering too many questions --not really awake or oriented at this time SKIN: Warm and dry. Jaundiced HEAD: Atraumatic. Normocephalic. EYES: Pupils equal and round. Positive scleral icterus. No injection or drainage. ENT: No nasal bleeding or discharge. Mucous membranes pink and moist. NECK: Trachea midline. No JVD. CARDIOVASCULAR: Regular rate and rhythm. S1-S2 no S3 or S4 RESPIRATORY: No accessory muscle use. Clear to auscultation. Breath sounds equal bilaterally. GASTROINTESTINAL: Abdomen soft, non-tender,Hepatic and splenic margins not palpable. Distended MUSCULOSKELETAL: Extremities without clubbing, cyanosis, or edema. No obvious deformities. NEUROLOGICAL: NOT Awake and alert. No obvious cranial nerve deficits. Motor grossly within normal limits. 4 out of 5 muscle strength in the arms and legs. ABNormal speech. PSYCHIATRIC: INAppropriate mood and affect; insight and judgment ABnormal. Procedures dobhoff tube placement. PARACENTESIS 10L Medications and IVs Current Medications Morphine Sulfate (Morphine Inj) 4 mg ONCE ONCE IV PUSH ; Start 02/14/18 at 17: 15; Stop 02/14/18 at 17:48; Status DC Ondansetron HCl (Zofran Odt) 4 mg ONCE ONCE PO Last administered on at 17:40; Start 02/14/18 at 17:45; Stop 02/14/18 at 17:46; Status DC Oxycodone HCl (Roxicodone) 5 mg ONCE ONCE PO Last administered on 02/14/18at 18 :01; Start 02/14/18 at 18:00; Stop 02/14/18 at 18:01; Status DC Sodium Chloride (NS Flush) 2 ml UNSCH PRN IV FLUSH FLUSH AFTER USING IV ACCESS Last administered on 02/20/18at 23:33; Start 02/14/18 at 20:15 Sodium Chloride (NS Flush) 2 ml BID IV FLUSH Last administered on 02/27/18at 08: 58; Start 02/14/18 at 21:00 Ondansetron HCl (Zofran Inj) 4 mg Q6H PRN IVP NAUSEA OR VOMITING; Start at 20:15; Stop 02/14/18 at 21:40; Status DC Naloxone HCl (Narcan Inj) 0.4 mg UNSCH PRN IV PUSH SEE LABEL COMMENTS; Start at 20:15 Magnesium Hydroxide (Milk Of Magnesia Liq) 30 ml Q12H PRN PO Mild constipation ; Start 02/14/18 at 20:15 Sennosides (Senokot) 17.2 mg Q12H PRN PO Moderate constipation; Start 02/14/18 at 20:15 Bisacodyl (Dulcolax Supp) 10 mg DAILY PRN RECTAL SEVERE CONSITIPATION; Start at 20:15 Lactulose (Lactulose Liq) 30 ml DAILY PRN PO SEVERE CONSITIPATION; Start at 20:15 Cholecalciferol (Vitamin D3) 1,000 units DAILY PO Last administered on at 08:56; Start 02/15/18 at 09:00 Cholestyramine Resin (Questran 4 Gm Pkt) 4 gm TIDAC PO Last administered on 02/27 11:44; Start 02/15/18 at 08:00 Cyanocobalamin (Vitamin B12) 100 mcg DAILY PO Last administered on 02/27/18 08: 57; Start 02/15/18 at 09:00 Folic Acid (Folate) 1 mg DAILY PO Last administered on 02/27/18 09:03; Start at 09:00 Hydroxyzine HCl (Atarax) 50 mg Q6H PRN PO itching Last administered on 11:49; Start 02/14/18 at 21:00 Hydroxyzine HCl (Atarax) 50 mg TID PRN PO ITCHING; Start 02/14/18 at 21:00; Status UNV Lactulose (Lactulose Liq) 40 ml TID PO Last administered on 02/27/18 11:46; Start 02/15/18 at 09:00 Midodrine (Proamatine) 2.5 mg TID@07,12,17 PO Last administered on 02/27/18 11: 53; Start 02/15/18 at 07:00 Oxycodone HCl (Roxicodone) 5 mg Q4H PRN PO PAIN Last administered on 02/27/18 11:44; Start 02/14/18 at 21:00 Pantoprazole Sodium (Protonix) 40 mg DAILY PO Last administered on 02/27/18 08: 56; Start 02/15/18 at 09:00 Pentoxifylline (TRENtal SR) 400 mg Q8H PO Last administered on 02/27/18 06:28; Start 02/14/18 at 22:00 Potassium Chloride (KCl) 20 meq BID PO ; Start 02/14/18 at 21:00; Stop 02/14/18 at 21:14; Status DC Miscellaneous (Pill Splitter) 1 ea UNSCH PRN OTHER SEE LABEL COMMENTS; Start at 21:00 Dextrose/Sodium Chloride 1,000 ml @ 100 mls/hr Q10H IV Last administered on 17:05; Start 02/14/18 at 21:45; Stop 02/17/18 at 10:46; Status DC Morphine Sulfate (Morphine Inj) 2 mg Q3H PRN IV PUSH BREAKTHROUGH PAIN Last administered on 02/25/18 04:30; Start 02/14/18 at 21:45 Ondansetron HCl (Zofran Odt) 4 mg Q6H PRN SL nausea Last administered on at 15:52; Start 02/14/18 at 21:45; Stop 02/18/18 at 17:18; Status DC Rifaximin (Xifaxan) 400 mg Q8HR PO Last administered on 02/27/18 06:28; Start 02/14/18 at 22:00 Spironolactone (Aldactone) 100 mg DAILY PO ; Start 02/15/18 at 09:00; Stop 02/15 at 09:00; Status DC Metoclopramide HCl (Reglan Inj) 5 mg ONCE ONCE IV PUSH Last administered on 16:30; Start 02/15/18 at 16:30; Stop 02/15/18 at 16:31; Status DC Ceftriaxone Sodium 1000 mg/ Sodium Chloride 100 ml @ 200 mls/hr Q12H IV Last administered on 02/23/18at 05:37; Start 02/15/18 at 17:00; Stop 02/23/18 at 14:55 ; Status DC Lorazepam (Ativan Inj) 2 mg STK-MED ONCE .ROUTE Last administered on 02/16/18 13:17; Start 02/16/18 at 13:17; Stop 02/16/18 at 13:18; Status DC Water (Free Water) VOLUME OF WATER: (300) ML Q8HR G-TUBE Last administered on at 06:00; Start 02/16/18 at 22:00; Stop 02/17/18 at 10:47; Status DC Water (Free Water) VOLUME OF WATER: (300) ML Q8HR G-TUBE Last administered on 06:00; Start 02/17/18 at 14:00 Metoclopramide HCl (Reglan Inj) 5 mg ONCE ONCE IV PUSH Last administered on at 15:43; Start 02/17/18 at 15:45; Stop 02/17/18 at 15:46; Status DC Metoclopramide HCl (Reglan Inj) 5 mg ONCE ONCE IV PUSH Last administered on at 09:27; Start 02/18/18 at 08:15; Stop 02/18/18 at 08:16; Status DC Prochlorperazine Edisylate (Compazine Inj) 10 mg Q8H PRN IV PUSH nausea Last administered on 02/27/18 08:58; Start 02/18/18 at 17:30 Spironolactone (Aldactone) 100 mg DAILY PO Last administered on 02/27/18 08:56 ; Start 02/18/18 at 19:30 Albumin Human 100 ml @ 60 mls/hr Q12H IV Last administered on 02/21/18at 09:29 ; Start 02/18/18 at 20:00; Stop 02/21/18 at 19:59; Status DC Sodium Bicarbonate 50 meq/Dextrose 1,050 ml @ 42 mls/hr Q24H ONCE IV Last administered on 02/21/18at 12:42; Start 02/21/18 at 11:00; Stop 02/22/18 at 10:59 ; Status DC Ceftriaxone Sodium 1000 mg/ Sodium Chloride 100 ml @ 200 mls/hr DAILY IV Last administered on 02/27/18at 08:58; Start 02/24/18 at 09:00 Phytonadione (Vitamin K Inj) 5 mg ONCE ONCE SQ Last administered on 02/23/18at 17:02; Start 02/23/18 at 15:00; Stop 02/23/18 at 15:06; Status DC Albumin Human 0 ml @ 60 mls/hr ONCE ONCE IV Last administered on 02/24/18at 15: 34; Start 02/24/18 at 14:15; Stop 02/24/18 at 14:19; Status DC Lidocaine HCl (Xylocaine-Mpf 1% Inj) 30 ml STK-MED ONCE .ROUTE Last administered on 02/24/18at 14:19; Start 02/24/18 at 14:19; Stop 02/24/18 at 14:20; Status DC A/P Problem List: (1) ELKIN (acute kidney injury) ICD Code: N17.9 - Acute kidney failure, unspecified Status: Acute (2) Acute pancreatitis ICD Code: K85.90 - Acute pancreatitis without necrosis or infection, unspecified Status: Acute (3) Failure to thrive Status: Acute (4) End-stage liver disease ICD Code: K72.90 - Hepatic failure, unspecified without coma Status: Chronic Assessment and Plan End-stage liver disease with ascites History of chronic alcohol abuse Paracentesis performed yesterday removed 10 L of ascitic fluid Continuing home medications of lactulose, pentoxifylline, vitamin B12, rifaximin Empiric coverage with ceftriaxone for possible SBP Patient will need liver transplant, otherwise prognosis is grim CMP and ammonia level ordered with a.m. labs Appreciate gastroenterology consult and intervention Acute pancreatitis Lipase is improving, will follow level, expect more rapid improvement following paracentesis Continue pain control and antiemetics as needed Lipase ordered with a.m. labs Leukocytosis Reported as chronic, he follows hematology as outpatient CBC with a.m. labs Failure to thrive Patient has not been eating or drinking well due to recent ascites Dobbhoff tube placed in the past but became on functional and was removed Interventional radiology replace Dobbhoff tube during this stay, tube feeding resumed Family and patient would like to be aggressive regarding treatment options for end-stage liver disease Continue PT and OT, attempt ambulation prior to discharge FEN 3 times daily manual can feeding Via Dobbhoff tube ordered to replace continuous overnight feeding--family wants overnight feedings only now Patient had nausea with continuous overnight feeds Family has also been unable to locate and pay for a feeding pump Discharge Planning Patient will be qualified for rehab but has no payer source outside of [facility] HOPEFULLY TO GO HOME TOMORROW WITH OUTPATIENT TUBE FEEDS Discharge Planning Family wants to go to [facility] after discharge once he has insurance Problem Qualifiers (1) Acute pancreatitis: Qualified Codes: K85.90 - Acute pancreatitis without necrosis or infection, unspecified (2) Failure to thrive: Qualified Codes: R62.7 - Adult failure to thrive Roly Braga DO Feb 27, 2018 13:38
[2018-02-27 16:42] LABS: HEMOGLOBIN A1C 4.3 % (4.3-6.0)
[2018-02-28] VITALS (8 sets, daily range): BP systolic 116–140; BP diastolic 62–92; PULSE 95–130; RESP 16–20; TEMP 97.4–98.3; O2SAT 100
[2018-02-28] MEDS: hydrOXYzine HCL 50 MG TAB PO PRN ×3 (03:40→22:03)
[2018-02-28 05:26] LABS: AUTOMATED NEUTROPHIL # 21.8 TH/MM3 (1.8-7.7); BASOPHIL # 0.1 TH/MM3 (0-0.2); BASOPHIL % 0.3 % (0.0-2.0); EOSINOPHIL # 0.4 TH/MM3 (0-0.4); EOSINOPHIL % 1.4 % (0.0-4.0); HEMATOCRIT 29.7 % (39.0-51.0); LYMPH % 7.4 % (9.0-44.0); MEAN CORPUSCULAR HEMOGLOBIN 33.6 PG (27.0-34.0); MEAN CORPUSCULAR HGB CONC 33.6 % (32.0-36.0); MONO % 11.3 % (0.0-8.0); MONOCYTE # 3.1 TH/MM3 (0-0.9); NEUT % 79.6 % (16.0-70.0); PLATELET COUNT 212 TH/MM3 (150-450); RED BLOOD COUNT 2.97 MIL/MM3 (4.50-5.90); RED CELL DISTRIBUTION WIDTH 15.9 % (11.6-17.2); WHITE BLOOD COUNT 27.4 TH/MM3 (4.0-11.0)
[2018-02-28 05:32] LABS: INTERNATIONAL NORMALIZED RATIO 1.4 RATIO
[2018-02-28 05:54] LABS: ALBUMIN 2.2 GM/DL (3.4-5.0); AST (GOT) 50 U/L (15-37); BICARBONATE 9.6 MEQ/L (21.0-32.0); BLOOD UREA NITROGEN 25 MG/DL (7-18); CALCIUM 8.6 MG/DL (8.5-10.1); CHLORIDE 105 MEQ/L (98-107); CREATININE 0.94 MG/DL (0.60-1.30); GLOMERULAR FILTRATION RATE 89 ML/MIN (>89); GLUCOSE,RANDOM 107 MG/DL (74-106); MAGNESIUM 1.8 MG/DL (1.5-2.5); SODIUM (NA) 129 MEQ/L (136-145)
[2018-02-28 05:58] LABS: ALKALINE PHOSPHATASE 176 U/L (45-117); ALT (GPT) 62 U/L (12-78); PHOSPHORUS 2.8 MG/DL (2.5-4.9); TOTAL BILIRUBIN ADULT 10.6 MG/DL (0.2-1.0); TOTAL PROTEIN 5.5 GM/DL (6.4-8.2)
[2018-02-28] MEDS: MIDODRINE 5 MG TAB PO SCH ×3 (06:03→18:04)
[2018-02-28] MEDS: FREE WATER G-TUBE SCH ×3 (06:03→19:56)
[2018-02-28] MEDS: RIFAXIMIN 200 MG TAB PO SCH ×3 (06:03→22:04)
[2018-02-28] MEDS: PENTOXIFYLLINE 400 MG CONTROLLED RELEASE TAB PO SCH ×3 (06:03→22:03)
[2018-02-28] MEDS: LACTULOSE SYRUP 20 GM/30 ML CUP PO SCH ×3 (07:59→18:05)
[2018-02-28] MEDS: CHOLESTYRAMINE 4 GM PACKET PO SCH ×3 (07:59→18:05)
[2018-02-28] MEDS: CHOLECALCIFEROL (VIT D3) 1000 UNIT TAB PO SCH (08:00)
[2018-02-28] MEDS: FOLIC ACID 1 MG TAB PO SCH (08:00)
[2018-02-28] MEDS: CYANOCOBALAMIN 100 MCG TAB PO SCH (08:01)
[2018-02-28] MEDS: PANTOPRAZOLE SOD 40 MG DELAYED RELEASE TAB PO SCH (08:01)
[2018-02-28] MEDS: cefTRIAXone INJ 1,000 MG in SODIUM CHLORIDE 0.9% INJ 100 ML IV SCH (08:02)
[2018-02-28] MEDS: SODIUM CHLORIDE 0.9% FLUSH 10 ML FLUSH IV FLUSH SCH ×2 (08:02→21:00)
[2018-02-28] MEDS: SPIRONOLACTONE 100 MG TAB PO SCH (08:02)
[2018-02-28] MEDS: PROCHLORPERAZINE INJ 10 MG/2 ML VIAL IV PUSH PRN ×2 (12:46→22:03)
--- NOTE | 2018-02-28 13:34 | HHI.PR ---
Subjective Remarks Follow-up for liver failure, ascites, failure to thrive. The patient reports feeling at his baseline. Discussed his worsening labs including sodium 129 and ammonia 45 and concern for dehydration. Patient reports he is tolerating oral intake and drinks 4-5 boost daily along with his tube feeds. He denies any nausea or vomiting. Has continued chronic diffuse abdominal pain. Denies fevers or chills. Denies any other medical complaints at this time. Objective Vitals Vital Signs Date Time Temp Pulse Resp B/P (MAP) Pulse Ox O2 Delivery O2 Flow Rate FiO2 02/28/18 12:00 97.6 118 18 132/87 (102) 100 02/28/18 08:00 97.5 117 18 140/92 (108) 100 02/28/18 04:00 Room Air 02/28/18 04:00 98.3 115 16 116/62 (80) 100 02/28/18 03:39 118 02/28/18 00:00 97.4 113 16 121/69 (86) 100 02/28/18 00:00 Room Air 02/27/18 23:47 108 02/27/18 20:00 Room Air 02/27/18 20:00 97.5 119 18 123/74 (90) 100 02/27/18 19:41 121 02/27/18 16:00 97.7 117 20 120/76 (91) 100 02/27/18 15:50 118 I/O 02/27/18 02/27/18 02/27/18 02/28/18 02/28/18 02/28/18 06:59 14:59 22:59 06:59 14:59 22:59 Intake Total 222 ml 100 ml Output Total 50 ml 300 ml Balance 172 ml 100 ml -300 ml Intake Oral 222 ml IV Total 100 ml Output Urine Total 50 ml 300 ml # Voids 2 # Bowel Movements 0 1 2 Result Diagram: 02/28/18 0500 02/28/18 0500 Imaging Last Impressions Cyst Biopsy Asp-Paracentesis US 02/24/18 0000 Signed Impressions: CONCLUSION: Uncomplicated paracentesis. Patient received albumin per protocol. Abdomen X-Ray 02/23/18 0000 Signed Impressions: CONCLUSION: Tip of the Dobbhoff tube in the second portion of the duodenum. Abdomen Fluoroscopy 02/21/18 0000 Signed Impressions: CONCLUSION: 1. Uncomplicated Dobbhoff tube placement as above. Abdomen/Pelvis CT 02/14/18 0000 Signed Impressions: CONCLUSION: 1. Suspected cirrhotic appearance of the liver. 2. Moderate ascites. 3. Small calcified gallstones. 4. 3 small metallic densities are seen within the gastric lumen and proximal t o mid small bowel. These are of uncertain etiology. 5. Linear atelectasis or consolidation at the right lower lobe. Objective Remarks GENERAL: Chronically ill-appearing middle-aged male patient in NAD. SKIN: Warm and dry. No rash. Extremely jaundiced. HEENT: Normocephalic. Atraumatic. Scleral icterus. Mucous membranes slightly dry. NECK: Supple. Trachea midline. CARDIOVASCULAR: Regular rate and rhythm. No murmur appreciated. RESPIRATORY: No accessory muscle use. Clear to auscultation. Breath sounds equal bilaterally. GASTROINTESTINAL: Abdomen soft, non-tender, nondistended, mild ascites. Normoactive bowel sounds x4. MUSCULOSKELETAL: No obvious deformities. Extremities without clubbing, cyanosis , or edema. NEUROLOGICAL: Awake and alert. No obvious cranial nerve deficits. Motor grossly within normal limits. Moving all extremities spontaneously. Normal speech. PSYCHIATRIC: Appropriate mood and affect; insight and judgment normal. Procedures dobhoff tube placement. PARACENTESIS 10L Medications and IVs Current Medications Medications (Trade) Dose Ordered Sig/Virgli Route Start Time Stop Time Status Last Admin (NS Flush) 2 ml UNSCH PRN IV FLUSH 02/14/18 20:15 02/20/18 23:33 (NS Flush) 2 ml BID IV FLUSH 02/14/18 21:00 02/28/18 08:02 (Narcan Inj) 0.4 mg UNSCH PRN IV PUSH 02/14/18 20:15 (Milk Of Magnesia Liq) 30 ml Q12H PRN PO 02/14/18 20:15 (Senokot) 17.2 mg Q12H PRN PO 02/14/18 20:15 (Dulcolax Supp) 10 mg DAILY PRN RECTAL 02/14/18 20:15 (Lactulose Liq) 30 ml DAILY PRN PO 02/14/18 20:15 (Vitamin D3) 1,000 units DAILY PO 02/15/18 09:00 02/28/18 08:00 (Questran 4 Gm Pkt) 4 gm TIDAC PO 02/15/18 08:00 02/28/18 12:38 (Vitamin B12) 100 mcg DAILY PO 02/15/18 09:00 02/28/18 08:01 (Folate) 1 mg DAILY PO 02/15/18 09:00 02/28/18 08:00 (Atarax) 50 mg Q6H PRN PO 02/14/18 21:00 02/28/18 12:46 (Lactulose Liq) 40 ml TID PO 02/15/18 09:00 02/28/18 12:38 (Proamatine) 2.5 mg TID@07,12,17 PO 02/15/18 07:00 02/28/18 12:38 (Roxicodone) 5 mg Q4H PRN PO 02/14/18 21:00 02/28/18 12:39 (Protonix) 40 mg DAILY PO 02/15/18 09:00 02/28/18 08:01 (TRENtal SR) 400 mg Q8H PO 02/14/18 22:00 02/28/18 06:03 (Pill Splitter) 1 ea UNSCH PRN OTHER 02/14/18 21:00 (Morphine Inj) 2 mg Q3H PRN IV PUSH 02/14/18 21:45 02/25/18 04:30 (Xifaxan) 400 mg Q8HR PO 02/14/18 22:00 02/28/18 06:03 (Free Water) VOLUME OF WATER: (300) ML Q8HR G-TUBE 02/17/18 14:00 02/28/18 06:03 (Compazine Inj) 10 mg Q8H PRN IV PUSH 02/18/18 17:30 02/28/18 12:46 (Aldactone) 100 mg DAILY PO 02/18/18 19:30 02/28/18 08:02 Ceftriaxone Sodium 1000 mg/ Sodium Chloride 100 ml @ 200 mls/hr DAILY IV 02/24/18 09:00 02/28/18 08:02 A/P Problem List: (1) ELKIN (acute kidney injury) ICD Code: N17.9 - Acute kidney failure, unspecified Status: Acute (2) Acute pancreatitis ICD Code: K85.90 - Acute pancreatitis without necrosis or infection, unspecified Status: Acute (3) Failure to thrive Status: Acute (4) End-stage liver disease ICD Code: K72.90 - Hepatic failure, unspecified without coma Status: Chronic Assessment and Plan End-stage liver disease with ascites History of chronic alcohol abuse Paracentesis performed 02/24 removed 10 L of ascitic fluid Continuing home medications of lactulose, pentoxifylline, vitamin B12, rifaximin Empiric coverage with ceftriaxone for possible SBP Patient will need liver transplant, otherwise prognosis is grim CMP and ammonia level ordered with a.m. labs Appreciate gastroenterology consult and recommendations Acute pancreatitis Lipase is improving, will follow level, expect more rapid improvement following paracentesis Continue pain control and antiemetics as needed Monitor lipase Leukocytosis Reported as chronic, he follows hematology as outpatient CBC with a.m. labs Failure to thrive Patient has not been eating or drinking well due to recent ascites Dobbhoff tube placed in the past but became on functional and was removed Interventional radiology replace Dobbhoff tube during this stay, tube feeding resumed Family and patient would like to be aggressive regarding treatment options for end-stage liver disease Continue PT and OT, attempt ambulation prior to discharge FEN 3 times daily manual can feeding Via Dobbhoff tube ordered to replace continuous overnight feeding--family wants overnight feedings only now Patient had nausea with continuous overnight feeds Family has also been unable to locate and pay for a feeding pump Discharge Planning Patient will be qualified for rehab but has no payer source outside of [facility] Family wants to take the patient home with plan to go to [place] Patient with worsening labs today, not yet ready for discharge. Hopefully discharge to family in 1-2 days. Problem Qualifiers (1) Acute pancreatitis: Qualified Codes: K85.90 - Acute pancreatitis without necrosis or infection, unspecified (2) Failure to thrive: Qualified Codes: R62.7 - Adult failure to thrive Anitha Willams PA-C Feb 28, 2018 1:34 pm
[2018-03-01] VITALS (8 sets, daily range): BP systolic 113–133; BP diastolic 66–79; PULSE 118–125; RESP 16–18; TEMP 97.7–98.1; O2SAT 95–100
[2018-03-01] MEDS: FREE WATER G-TUBE SCH ×3 (03:40→22:00)
[2018-03-01] MEDS: MIDODRINE 5 MG TAB PO SCH ×3 (05:48→17:42)
[2018-03-01] MEDS: PROCHLORPERAZINE INJ 10 MG/2 ML VIAL IV PUSH PRN ×3 (05:48→22:48)
[2018-03-01] MEDS: RIFAXIMIN 200 MG TAB PO SCH ×3 (05:48→22:47)
[2018-03-01] MEDS: PENTOXIFYLLINE 400 MG CONTROLLED RELEASE TAB PO SCH ×3 (05:48→22:47)
[2018-03-01] MEDS: hydrOXYzine HCL 50 MG TAB PO PRN ×2 (05:48→17:44)
[2018-03-01 06:23] LABS: AUTOMATED NEUTROPHIL # 18.7 TH/MM3 (1.8-7.7); BASOPHIL # 0.1 TH/MM3 (0-0.2); BASOPHIL % 0.4 % (0.0-2.0); EOSINOPHIL # 0.4 TH/MM3 (0-0.4); EOSINOPHIL % 1.7 % (0.0-4.0); HEMATOCRIT 30.4 % (39.0-51.0); HEMOGLOBIN 10.3 GM/DL (13.0-17.0); LYMPH % 6.1 % (9.0-44.0); LYMPHOCYTE # 1.4 TH/MM3 (1.0-4.8); MEAN CELL VOLUME 100.7 FL (80.0-100.0); MEAN CORPUSCULAR HEMOGLOBIN 34.1 PG (27.0-34.0); MEAN CORPUSCULAR HGB CONC 33.9 % (32.0-36.0); MEAN PLATELET VOLUME 8.6 FL (7.0-11.0); MONOCYTE # 2.5 TH/MM3 (0-0.9); NEUT % 80.8 % (16.0-70.0); PLATELET COUNT 196 TH/MM3 (150-450); RED BLOOD COUNT 3.02 MIL/MM3 (4.50-5.90); WHITE BLOOD COUNT 23.1 TH/MM3 (4.0-11.0)
[2018-03-01 06:50] LABS: ALBUMIN 2.2 GM/DL (3.4-5.0); AST (GOT) 50 U/L (15-37); BICARBONATE 10.5 MEQ/L (21.0-32.0); BLOOD UREA NITROGEN 23 MG/DL (7-18); CALCIUM 8.6 MG/DL (8.5-10.1); CHLORIDE 107 MEQ/L (98-107); CREATININE 0.96 MG/DL (0.60-1.30); GLOMERULAR FILTRATION RATE 87 ML/MIN (>89); GLUCOSE,RANDOM 128 MG/DL (74-106); SODIUM (NA) 130 MEQ/L (136-145)
[2018-03-01 06:54] LABS: ALKALINE PHOSPHATASE 192 U/L (45-117); ALT (GPT) 68 U/L (12-78); TOTAL BILIRUBIN ADULT 10.2 MG/DL (0.2-1.0); TOTAL PROTEIN 5.8 GM/DL (6.4-8.2)
[2018-03-01 07:54] LABS: ACANTHOCYTES OCC (NORMAL); BANDS 9 % (0-6); BASOPHILS 1 % (0-2); BURR CELLS 1+ (NORMAL); LYMPHOCYTES 1 % (9-44); METAMYELOCYTES 2 % (0-1); MONOCYTES 8 % (0-8); NEUTROPHIL # MANUAL DIFF 20.3 TH/MM3 (1.8-7.7); POLYS (SEG NEUTROPHILS) 77 % (16-70)
[2018-03-01] MEDS: cefTRIAXone INJ 1,000 MG in SODIUM CHLORIDE 0.9% INJ 100 ML IV SCH (08:42)
[2018-03-01] MEDS: CHOLESTYRAMINE 4 GM PACKET PO SCH ×3 (08:42→17:42)
[2018-03-01] MEDS: SODIUM CHLORIDE 0.9% FLUSH 10 ML FLUSH IV FLUSH SCH ×2 (08:42→22:47)
[2018-03-01] MEDS: SPIRONOLACTONE 100 MG TAB PO SCH (08:43)
[2018-03-01] MEDS: FOLIC ACID 1 MG TAB PO SCH (08:43)
[2018-03-01] MEDS: CHOLECALCIFEROL (VIT D3) 1000 UNIT TAB PO SCH (08:44)
[2018-03-01] MEDS: CYANOCOBALAMIN 100 MCG TAB PO SCH (08:44)
[2018-03-01] MEDS: PANTOPRAZOLE SOD 40 MG DELAYED RELEASE TAB PO SCH (08:45)
[2018-03-01] MEDS: LACTULOSE SYRUP 20 GM/30 ML CUP PO SCH ×3 (08:46→17:42)
--- NOTE | 2018-03-01 17:02 | HHI.PR ---
Subjective Remarks Patient is more alert today, walking in the halls, requests shower. Objective Vitals Vital Signs Date Time Temp Pulse Resp B/P (MAP) Pulse Ox O2 Delivery O2 Flow Rate FiO2 03/01/18 12:08 98.1 120 17 116/71 (86) 100 03/01/18 08:08 97.9 119 18 123/74 (90) 100 03/01/18 08:00 Room Air 03/01/18 04:00 97.7 118 16 133/74 (93) 97 03/01/18 04:00 Room Air 03/01/18 04:00 119 03/01/18 00:00 Room Air 03/01/18 00:00 98.0 119 18 118/70 (86) 97 03/01/18 00:00 122 02/28/18 20:00 Room Air 02/28/18 20:00 122 02/28/18 20:00 98.0 125 20 133/77 (95) 100 I/O 02/28/18 02/28/18 02/28/18 03/01/18 03/01/18 03/01/18 07:00 15:00 23:00 07:00 15:00 23:00 Intake Total 100 ml 0 ml 240 ml Output Total 300 ml 200 ml 300 ml Balance -300 ml 100 ml -200 ml -60 ml Intake Oral 0 ml 240 ml IV Total 100 ml Output Urine Total 300 ml 200 ml 300 ml # Bowel Movements 2 3 Result Diagram: 03/01/18 0607 03/01/18 0607 Objective Remarks GENERAL: Jaundiced, cachectic, weak SKIN: Warm and dry. Jaundice HEAD: Normocephalic. EYES: scleral icterus. No injection or drainage. NECK: Supple, trachea midline. No JVD or lymphadenopathy. CARDIOVASCULAR: Tachycardia without murmurs, gallops, or rubs. RESPIRATORY: Breath sounds diminished in bilateral bases. No accessory muscle use. GASTROINTESTINAL: Abdomen is soft, nontender, normal active bowel sounds, no more ascites EXTREMITIES: No cyanosis, or edema. NEUROLOGICAL: Sleepy, arousable, oriented x 3. Non-focal. Procedures dobhoff tube placement. PARACENTESIS 10L A/P Problem List: (1) ELKIN (acute kidney injury) ICD Code: N17.9 - Acute kidney failure, unspecified Status: Acute (2) Acute pancreatitis ICD Code: K85.90 - Acute pancreatitis without necrosis or infection, unspecified Status: Acute (3) Failure to thrive Status: Acute (4) End-stage liver disease ICD Code: K72.90 - Hepatic failure, unspecified without coma Status: Chronic Assessment and Plan End-stage liver disease with ascites History of chronic alcohol abuse Paracentesis performed 02/24 removed 10 L of ascitic fluid Empiric coverage with ceftriaxone for possible SBP Patient will need liver transplant, otherwise prognosis is grim Continuing home medications of lactulose, pentoxifylline, vitamin B12, rifaximin Appreciate gastroenterology consult Acute pancreatitis Repeat lipase level in the morning Leukocytosis Reported as chronic, he follows hematology as outpatient Failure to thrive Poor appetite at home due to recent ascites Patient was doing fair on Dobbhoff tube, vomiting episode last night because Dobbhoff tube to be ejected Will calorie count his p.o. intake Family and patient would like to be aggressive regarding treatment options for end-stage liver disease Continue PT and OT, attempt ambulation prior to discharge Discharge Planning We will discharge patient tomorrow if calorie intake is near 2500 and 24 hours. Problem Qualifiers (1) Acute pancreatitis: Qualified Codes: K85.90 - Acute pancreatitis without necrosis or infection, unspecified (2) Failure to thrive: Qualified Codes: R62.7 - Adult failure to thrive Adal Gramajo MD Mar 01, 2018 17:02
[2018-03-02] VITALS (7 sets, daily range): BP systolic 120–126; BP diastolic 69–73; PULSE 101–127; RESP 17–19; TEMP 97.6–98.7; O2SAT 99–100
[2018-03-02] MEDS: FREE WATER G-TUBE SCH ×2 (06:00→14:00)
[2018-03-02] MEDS: PENTOXIFYLLINE 400 MG CONTROLLED RELEASE TAB PO SCH ×2 (06:42→14:50)
[2018-03-02] MEDS: RIFAXIMIN 200 MG TAB PO SCH ×2 (06:42→14:51)
[2018-03-02] MEDS: MIDODRINE 5 MG TAB PO SCH ×2 (06:46→12:24)
[2018-03-02 07:00] LABS: BICARBONATE 11.5 MEQ/L (21.0-32.0); CALCIUM 8.9 MG/DL (8.5-10.1); CREATININE 0.82 MG/DL (0.60-1.30)
[2018-03-02] MEDS: hydrOXYzine HCL 50 MG TAB PO PRN (08:44)
[2018-03-02] MEDS: CHOLESTYRAMINE 4 GM PACKET PO SCH ×2 (08:44→12:24)
[2018-03-02] MEDS: SODIUM CHLORIDE 0.9% FLUSH 10 ML FLUSH IV FLUSH SCH (08:44)
[2018-03-02] MEDS: LACTULOSE SYRUP 20 GM/30 ML CUP PO SCH ×2 (08:45→12:25)
[2018-03-02] MEDS: PANTOPRAZOLE SOD 40 MG DELAYED RELEASE TAB PO SCH (08:45)
[2018-03-02] MEDS: SPIRONOLACTONE 100 MG TAB PO SCH (08:45)
[2018-03-02] MEDS: FOLIC ACID 1 MG TAB PO SCH (08:45)
[2018-03-02] MEDS: CHOLECALCIFEROL (VIT D3) 1000 UNIT TAB PO SCH (08:45)
[2018-03-02] MEDS: CYANOCOBALAMIN 100 MCG TAB PO SCH (08:46)
[2018-03-02] MEDS: cefTRIAXone INJ 1,000 MG in SODIUM CHLORIDE 0.9% INJ 100 ML IV SCH (08:47)
[2018-03-02] MEDS: PROCHLORPERAZINE INJ 10 MG/2 ML VIAL IV PUSH PRN (14:55)
[2018-03-02] MEDS ORDERED: LACT10SO PO (15:41)
[2018-03-02] MEDS ORDERED: SENN187 PO (15:41)
--- NOTE | 2018-03-02 15:59 | HHI.DS ---
Discharge Summary Admission Date February 15, 2018 at 05:22 Discharge Date: Mar 02, 2018 Admitting Diagnosis Dehydration, end-stage liver disease (1) ELKIN (acute kidney injury) ICD Code: N17.9 - Acute kidney failure, unspecified Status: Acute (2) Acute pancreatitis ICD Code: K85.90 - Acute pancreatitis without necrosis or infection, unspecified Status: Acute (3) Failure to thrive Status: Acute (4) End-stage liver disease ICD Code: K72.90 - Hepatic failure, unspecified without coma Status: Chronic Procedures dobhoff tube placement. PARACENTESIS 10L Brief History - From Admission 37 y/o male with a history of End stage liver disease due to alcohol abuse, hepatorenal syndrome and chronic leukocytosis was brought to the ED by family for concerns of generalized weakness and abdominal pain. Prior to arrival patient had an outpatient paracentesis and had 6L removed. This is normal for him every 7-10 days. He is complaining of sharp general abdominal pain all over and is requesting his pain medication. Patient is lethargic but is oriented and able to provide history. No family is at bedside. He states due to the pain he has not been eating or drinking well, he denies any problems swallowing. He states he might be getting a feeding tube outpatient. Patient's records show that he was referred to IR for placement of a Dobbhoff tube, and per ED it was to be done tomorrow. CBC/BMP: 03/01/18 0607 03/02/18 0540 Significant Findings Laboratory Tests Test 02/28/18 05:00 03/01/18 06:07 03/02/18 05:40 White Blood Count 27.4 TH/MM3 (4.0-11.0) 23.1 TH/MM3 (4.0-11.0) Red Blood Count 2.97 MIL/MM3 (4.50-5.90) 3.02 MIL/MM3 (4.50-5.90) Hemoglobin 10.0 GM/DL (13.0-17.0) 10.3 GM/DL (13.0-17.0) Hematocrit 29.7 % (39.0-51.0) 30.4 % (39.0-51.0) Neutrophils (%) (Auto) 79.6 % (16.0-70.0) 80.8 % (16.0-70.0) Lymphocytes (%) (Auto) 7.4 % (9.0-44.0) 6.1 % (9.0-44.0) Monocytes (%) (Auto) 11.3 % (0.0-8.0) 11.0 % (0.0-8.0) Neutrophils # (Auto) 21.8 TH/MM3 (1.8-7.7) 18.7 TH/MM3 (1.8-7.7) Monocytes # (Auto) 3.1 TH/MM3 (0-0.9) 2.5 TH/MM3 (0-0.9) Prothrombin Time 14.0 SEC (9.8-11.6) Blood Urea Nitrogen 25 MG/DL (7-18) 23 MG/DL (7-18) 24 MG/DL (7-18) Random Glucose 107 MG/DL (74-106) 128 MG/DL (74-106) Total Protein 5.5 GM/DL (6.4-8.2) 5.8 GM/DL (6.4-8.2) Albumin 2.2 GM/DL (3.4-5.0) 2.2 GM/DL (3.4-5.0) Alkaline Phosphatase 176 U/L (45-117) 192 U/L (45-117) Aspartate Amino Transf (AST/SGOT) 50 U/L (15-37) 50 U/L (15-37) Total Bilirubin 10.6 MG/DL (0.2-1.0) 10.2 MG/DL (0.2-1.0) Sodium Level 129 MEQ/L (136-145) 130 MEQ/L (136-145) 130 MEQ/L (136-145) Carbon Dioxide Level 9.6 MEQ/L (21.0-32.0) 10.5 MEQ/L (21.0-32.0) 11.5 MEQ/L (21.0-32.0) Ammonia 45 MCMOL/L (11-32) Mean Corpuscular Volume 100.7 FL (80.0-100.0) Mean Corpuscular Hemoglobin 34.1 PG (27.0-34.0) Neutrophils % (Manual) 77 % (16-70) Band Neutrophils % 9 % (0-6) Lymphocytes % 1 % (9-44) Neutrophils # (Manual) 20.3 TH/MM3 (1.8-7.7) Metamyelocytes 2 % (0-1) Jordan Cells 1+ (NORMAL) Estimat Glomerular Filtration Rate 87 ML/MIN (>89) Lipase 688 U/L (73-393) PE at Discharge GENERAL: Jaundiced, cachectic, weak SKIN: Warm and dry. Jaundice HEAD: Normocephalic. EYES: scleral icterus. No injection or drainage. NECK: Supple, trachea midline. No JVD or lymphadenopathy. CARDIOVASCULAR: Tachycardia without murmurs, gallops, or rubs. RESPIRATORY: Breath sounds diminished in bilateral bases. No accessory muscle use. GASTROINTESTINAL: Abdomen is soft, nontender, normal active bowel sounds, no more ascites EXTREMITIES: No cyanosis, or edema. NEUROLOGICAL: Sleepy, arousable, oriented x 3. Non-focal. 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 He was admitted with a number of imbalances including ascites, lack of appetite, hyponatremia, pancreatitis, nausea and vomiting. After being here for approximately 2 weeks he has improved slowly but not reached normality due to his chronic worsening condition. He would like to go home and has been asking to go home for the last 2 days. He is living with his parents currently. The main issue since I have seen him is that his p.o. intake was adequate, he was on top of tube which was vomited out the night before yesterday. Since yesterday he has managed to eat approximately [id number] katja in a 24-hour period. He has been ambulating with a walker under the care of physical therapy. He has no signs of asterixis, he is alert and oriented 3. Certain issues need to be followed as an outpatient including elevated lipase and hyponatremia. I have provided him slips to follow a BMP, lipase, ammonia level once weekly for 2 weeks, forwarding results to his primary care provider and mri manager. I have provided a physical therapy slip and explained to parents that they will need to visit our outpatient physical therapy center. His Medicaid is active as of today, the plan is currently to establish him with [facility] and requests a liver transplant which I believe he will qualify for. Until then, I explained, the main effort will be to maintain his mental and physical status. Most important thing he can do at this point is eat adequate calories to not continue losing weight. I have instructed his parents to call an ambulance or brain to the ER for any confusion, weight loss, vomiting, lack of eating or cooperating with care that is in his best interest. Pt Condition on Discharge: Good Discharge Disposition: Discharge Home Discharge Time: > 30 minutes Discharge Instructions DIET: Follow Instructions for: As Tolerated, No Restrictions Activities you can perform: Regular-No Restrictions Adal Gramajo MD Mar 02, 2018 15:59
[2018-03-02] MEDS ORDERED: PROC10TA PO (16:20)
[2018-03-02] MEDS ORDERED: OXYC1CAP PO (17:18)
== END 2018-03-02 17:51 | disposition home or self-care (01) | DRG 432 ==
LOC: NEPC 16:20 → NEDA 20:14 → UNDOADMOB 20:20 → NEPGCP 21:17 → OBSVTOIN 02-15 05:22 → N04A 02-18 13:23
PROVIDERS: ADMIT Family Medicine; ATTEND Family Medicine
PROC: 0W9G3ZX Drainage of Peritoneal Cavity, Percutaneous Approach, Diagnostic (ICD-10-PCS; principal; 2018-02-14)
PROC: 0DH67UZ Insertion of Feeding Device into Stomach, Via Natural or Artificial Opening (ICD-10-PCS; 2018-02-16)
PROC: 0DH67UZ Insertion of Feeding Device into Stomach, Via Natural or Artificial Opening (ICD-10-PCS; 2018-02-21)
PROC: 0W9G3ZZ Drainage of Peritoneal Cavity, Percutaneous Approach (ICD-10-PCS; 2018-02-24)
DX: K70.40 Alcoholic hepatic failure without coma (principal); K85.90 Acute pancreatitis without necrosis or infection, unspecified; K76.7 Hepatorenal syndrome; N17.9 Acute kidney failure, unspecified; E87.2 Acidosis; D68.9 Coagulation defect, unspecified; R64 Cachexia; E87.1 Hypo-osmolality and hyponatremia; E87.5 Hyperkalemia; K70.31 Alcoholic cirrhosis of liver with ascites; E86.0 Dehydration; J45.909 Unspecified asthma, uncomplicated; Z51.5 Encounter for palliative care; B19.20 Unspecified viral hepatitis C without hepatic coma; R62.7 Adult failure to thrive; K80.20 Calculus of gallbladder without cholecystitis without obstruction; R63.0 Anorexia; D53.9 Nutritional anemia, unspecified; F17.210 Nicotine dependence, cigarettes, uncomplicated; L29.9 Pruritus, unspecified; G89.29 Other chronic pain
CPT/HCPCS: 43752; 49083; 74018; 74176; 76937; 80048; 80053; 80076; 81001; 82105; 82140; 83036; 83605; 83690; 83735; 84100; 84439; 84443; 85007; 85025; 85027; 85610; 85730; 93005; C1729; J0696; J0780; J2060; J2270; J2765; J3430; J7042; J7070; P9047

== ENCOUNTER 2018-03-11 19:48 | Emergency (ER) | payer OTHER ==
[~2018-03-11] VITALS: Ht 188 cm; Wt 91.0 kg
[~2018-03-11 19:48] MED LIST changes: -CEPH-460 PO; -METR-1 PO; -OXYC-392 PO; -PRED10PA PO; +PROC10TA PO; +SENN187 PO; -ZOFR4TAB3 SL
[2018-03-11 20:03] VITALS: BP 119/73; PULSE 119; RESP 16; TEMP 98.5; O2SAT 100
--- NOTE | 2018-03-11 20:58 | PD ---
HPI Chief Complaint: Fall Time Seen by Provider: 20:49 Travel History International Travel<30 days: No Contact w/Intl Traveler<30days: No Traveled to known affect area: No History of Present Illness HPI Patient 38-year-old male presents emergency department for evaluation of laceration to left lower extremity. Patient has a history of hepatic encephalopathy recent hospitalization for consideration of liver transplant. Mom states that he has been gradually building up his strength at home and felt like a shot was warranted today. He had a slip and fall in the shower tried to grab the shower rail and continued on to the bathroom floor. Unsure as to whether he hit his head his chief complaint is of the left leg laceration. Denies any loss of conscious mom states been mildly confused but his mental status is gradually improved since discharge from the hospital a few days ago. No chest pain shortness breath abdominal pain nausea vomiting. He did have about 10 L of fluid removed from his abdomen yesterday by paracentesis. Taking all his medications as prescribed. Symptoms moderate, duration is an hour, context as above, associated signs symptoms as above. PFSH Past Medical History Asthma: No Autoimmune Disease: No Blood Disorders: No Anxiety: No Depression: No Heart Rhythm Problems: No Cardiovascular Problems: No High Cholesterol: No Chemotherapy: No Chest Pain: No Congestive Heart Failure: No Cirrhosis: Yes COPD: No Diabetes: No Diminished Hearing: No Endocrine: No Gastrointestinal Disorders: Yes (ascites from esld, liver disease) GERD: No Genitourinary: No Hepatitis: Yes (ALCOHOL INDUCED) Hiatal Hernia: No Immune Disorder: No Musculoskeletal: Yes (weak when walking) Neurologic: Yes (weak and tired) Psychiatric: No Reproductive: No Respiratory: No Radiation Therapy: No Sleep Apnea: No Thyroid Disease: No Ulcer: No Tetanus Vaccination: > 5 Years Past Surgical History Other Surgery: Yes (paracentesis on a biweekly basis ongoing) Social History Alcohol Use: No (hx abuse) Tobacco Use: No (quit ) Substance Use: No Allergies-Medications (Allergen,Severity, Reaction): Coded Allergies: No Known Allergies (Verified , 03/11/18) Reported Meds & Prescriptions Reported Meds & Active Scripts Active Oxycodone (Oxycodone HCl) 5 Mg Cap 5 Mg PO Q4H PRN 30 Days Prochlorperazine Maleate 10 Mg Tab 10 Mg PO Q4H PRN 3 Days Senna-Lax (Sennosides) 8.6 Mg Tab 17.2 Mg PO Q12H PRN 30 Days Lactulose Liq (Lactulose) 10 Gm/15 Ml Soln 40 Ml PO BID 30 Days Gnp Vitamin D3 Extra Stre (Cholecalciferol) 1,000 Unit Tab 1,000 Units PO DAILY Gnp Vitamin B-1 (Thiamine HCl) 100 Mg Tab 100 Mg PO DAILY Vitamin B12 (Cyanocobalamin) 100 Mcg Tab 100 Mcg PO DAILY Pantoprazole (Pantoprazole Sodium) 40 Mg Tab 40 Mg PO DAILY Hydroxyzine HCl 50 Mg Tab 50 Mg PO Q6H PRN Cholestyramine 4 Gm/Pkt Powd 4 Gm PO TIDAC 1 packet contains 4 grams of cholestyramine. Pentoxifylline ER (Pentoxifylline) 400 Mg Tab 400 Mg PO Q8H Midodrine 5 Mg Tab 2.5 Mg PO TID@07,12,17 Xifaxan (Rifaximin) 200 Mg Tab 400 Mg PO Q8HR Potassium Chloride ER (Potassium Chloride) 10 Meq Cap 20 Meq PO BID Folic Acid 1 Mg Tablet 1 Mg PO DAILY Sodium Bicarbonate 650 Mg Tab 650 Mg PO Q8HR Reported Spironolactone 100 Mg Tab 100 Mg PO DAILY Review of Systems Except as stated in HPI: all other systems reviewed are Neg Physical Exam Narrative GENERAL: Well-developed, jaundiced and icteric in no obvious distress. SKIN: Focused skin assessment warm/dry. There is a laceration running the length of the tibia approximately 15 cm in length. Appears to be fairly superficial, no foreign body identified, pulse motor and sensory intact distally in all 4 extremities compartments are soft. HEAD: Atraumatic. Normocephalic. EYES: Pupils equal and round. No scleral icterus. No injection or drainage. ENT: No nasal bleeding or discharge. Mucous membranes pink and moist. NECK: Trachea midline. No JVD. CARDIOVASCULAR: Regular rate and rhythm. No murmur appreciated. RESPIRATORY: No accessory muscle use. Clear to auscultation. Breath sounds equal bilaterally. GASTROINTESTINAL: Abdomen soft, non-tender, nondistended. Hepatic and splenic margins not palpable. MUSCULOSKELETAL: No obvious deformities. No clubbing. No cyanosis. No edema. Patient does have a laceration as described above but no gross deformity of the extremities. Compartments are soft, pulse motor and sensory intact distally in all 4 extremities, bleeding is controlled peer NEUROLOGICAL: Awake and alert. No obvious cranial nerve deficits. Motor grossly within normal limits. Normal speech. PSYCHIATRIC: Appropriate mood and affect; insight and judgment normal. Data Data Last Documented VS Vital Signs Date Time Temp Pulse Resp B/P (MAP) Pulse Ox O2 Delivery O2 Flow Rate FiO2 03/11/18 23:26 117 18 101/59 (73) 100 03/11/18 20:03 98.5 Orders Orders Ammonia (03/11/18 20:57) Complete Blood Count With Diff (03/11/18 20:57) Comprehensive Metabolic Panel (03/11/18 20:57) Prothrombin Time / Inr (Pt) (03/11/18 20:57) Act Partial Throm Time (Ptt) (03/11/18 20:57) Ct Brain W/O Iv Contrast(Rout) (03/11/18 20:57) Blood Glucose (03/11/18 20:57) Ecg Monitoring (03/11/18 20:57) Iv Access Insert/Monitor (03/11/18 20:57) Oximetry (03/11/18 20:57) Sodium Chloride 0.9% Flush (Ns Flush) (03/11/18 21:00) Ct Cerv Spine W/O Contrast (03/11/18 ) Lidocai-Epi 1%-1:100,000 Inj (Xylocaine- (03/11/18 22:30) Morphine Inj (Morphine Inj) (03/11/18 22:30) Morphine Inj (Morphine Inj) (03/11/18 23:00) Ed Discharge Order (03/11/18 23:08) Labs Laboratory Tests Test 03/11/18 21:05 White Blood Count 14.3 TH/MM3 Red Blood Count 4.40 MIL/MM3 Hemoglobin 12.6 GM/DL Hematocrit 37.9 % Mean Corpuscular Volume 86.2 FL Mean Corpuscular Hemoglobin 28.7 PG Mean Corpuscular Hemoglobin Concent 33.4 % Red Cell Distribution Width 14.7 % Platelet Count 298 TH/MM3 Mean Platelet Volume 9.6 FL Neutrophils (%) (Auto) 71.4 % Lymphocytes (%) (Auto) 17.3 % Monocytes (%) (Auto) 8.0 % Eosinophils (%) (Auto) 2.4 % Basophils (%) (Auto) 0.9 % Neutrophils # (Auto) 10.2 TH/MM3 Lymphocytes # (Auto) 2.5 TH/MM3 Monocytes # (Auto) 1.1 TH/MM3 Eosinophils # (Auto) 0.3 TH/MM3 Basophils # (Auto) 0.1 TH/MM3 CBC Comment DIFF FINAL Differential Comment Prothrombin Time 11.5 SEC Prothromb Time International Ratio 1.1 RATIO Activated Partial Thromboplast Time 24.2 SEC Blood Urea Nitrogen 20 MG/DL Creatinine 0.95 MG/DL Random Glucose 130 MG/DL Total Protein 7.3 GM/DL Albumin 3.4 GM/DL Calcium Level 9.2 MG/DL Alkaline Phosphatase 124 U/L Aspartate Amino Transf (AST/SGOT) 31 U/L Alanine Aminotransferase (ALT/SGPT) 25 U/L Total Bilirubin 0.5 MG/DL Sodium Level 137 MEQ/L Potassium Level 3.9 MEQ/L Chloride Level 104 MEQ/L Carbon Dioxide Level 19.5 MEQ/L Anion Gap 14 MEQ/L Estimat Glomerular Filtration Rate 88 ML/MIN Ammonia 21 MCMOL/L [facility] Medical Decision Making Medical Screen Exam Complete: Yes Emergency Medical Condition: Yes Differential Diagnosis Laceration, hepatic encephalopathy unlikely, coagulopathy, head injury, neck injury. Narrative Course Patient room to the emergency department, labs are reassuring, ammonia level negative. He does have jaundice and icterus consistent with his chronic liver disease. Do not think there is any indication for further acute workup of his liver at this time. CT head and neck are negative, his laceration was approximated. He is stable for discharge discussed wound care and return to ED criteria as well as return to ED for stitches removal. Diagnosis Primary Impression: Laceration Additional Impressions: Fall Confusion Additional Instructions: Return to ER in 12-14 days for suture removal. Disposition: 01 DISCHARGE HOME Condition: Stable Eddie Garcia MD Mar 11, 2018 20:58
[2018-03-11] MEDS ORDERED: SODIUM CHLORIDE 0.9% FLUSH 10 ML FLUSH IV FLUSH PRN (21:00)
[2018-03-11 21:27] LABS: AUTOMATED NEUTROPHIL # 10.2 TH/MM3 (1.8-7.7); BASOPHIL # 0.1 TH/MM3 (0-0.2); BASOPHIL % 0.9 % (0.0-2.0); EOSINOPHIL # 0.3 TH/MM3 (0-0.4); EOSINOPHIL % 2.4 % (0.0-4.0); HEMATOCRIT 37.9 % (39.0-51.0); HEMOGLOBIN 12.6 GM/DL (13.0-17.0); LYMPH % 17.3 % (9.0-44.0); LYMPHOCYTE # 2.5 TH/MM3 (1.0-4.8); MEAN CELL VOLUME 86.2 FL (80.0-100.0); MEAN CORPUSCULAR HEMOGLOBIN 28.7 PG (27.0-34.0); MEAN CORPUSCULAR HGB CONC 33.4 % (32.0-36.0); MEAN PLATELET VOLUME 9.6 FL (7.0-11.0); MONOCYTE # 1.1 TH/MM3 (0-0.9); NEUT % 71.4 % (16.0-70.0); PLATELET COUNT 298 TH/MM3 (150-450); RED CELL DISTRIBUTION WIDTH 14.7 % (11.6-17.2); WHITE BLOOD COUNT 14.3 TH/MM3 (4.0-11.0)
[2018-03-11 21:40] LABS: INTERNATIONAL NORMALIZED RATIO 1.1 RATIO; PROTHROMBIN TIME - PATIENT 11.5 SEC (9.8-11.6)
[2018-03-11 21:57] LABS: ALKALINE PHOSPHATASE 124 U/L (45-117); TOTAL BILIRUBIN ADULT 0.5 MG/DL (0.2-1.0); TOTAL PROTEIN 7.3 GM/DL (6.4-8.2)
[2018-03-11 22:00] LABS: ALBUMIN 3.4 GM/DL (3.4-5.0); ALT (GPT) 25 U/L (12-78); AST (GOT) 31 U/L (15-37); BICARBONATE 19.5 MEQ/L (21.0-32.0); BLOOD UREA NITROGEN 20 MG/DL (7-18); CALCIUM 9.2 MG/DL (8.5-10.1); CHLORIDE 104 MEQ/L (98-107); CREATININE 0.95 MG/DL (0.60-1.30); GLOMERULAR FILTRATION RATE 88 ML/MIN (>89); GLUCOSE,RANDOM 130 MG/DL (74-106); SODIUM (NA) 137 MEQ/L (136-145)
--- NOTE | 2018-03-11 22:27 | RADRPT ---
EXAM DATE: 03/11/2018 10:24 PM EDT AGE/SEX: 38 years / Male INDICATIONS: Trauma; fall. CLINICAL DATA: This is the patient's initial encounter. Patient reports that signs and symptoms have been present for 1 day and indicates a pain score of 0/10. MEDICAL/SURGICAL HISTORY: Cirrhosis. Hepatitis C. ETOH abuse None. RADIATION DOSE: 56.35 CTDI (mGy) COMPARISON: [facility] [place], CT BRAIN W/O CONTRAST, 12/30/2017. . TECHNIQUE: CT of the head without contrast. Using automated exposure control and adjustment of the mA and/or kV according to patient size, radiation dose was kept as low as reasonably achievable to ob tain optimal diagnostic quality images. FINDINGS: Cerebrum: The ventricles are normal for age. No evidence of midline shift, mass lesion, hemorrhage or acute infarction. No extraaxial fluid collections are seen. Posterior Fossa: The cerebellum and brainstem are intact. The 4th ventricle is midline. The cerebe llopontine angle is unremarkable. Extracranial: The visualized portion of the orbits is intact. Skull: The calvaria is intact. No evidence of skull fracture. CONCLUSION: 1. No acute intracranial abnormalities. Electronically signed by: Aki Richter MD 03/11/2018 10:26 PM EDT
--- NOTE | 2018-03-11 22:29 | RADRPT ---
EXAM DATE: 03/11/2018 10:26 PM EDT AGE/SEX: 38 years / Male INDICATIONS: Trauma; fall. CLINICAL DATA: This is the patient's initial encounter. Patient reports that signs and symptoms have been present for 1 day and indicates a pain score of 0/10. MEDICAL/SURGICAL HISTORY: Cirrhosis. Hepatitis C. ETOH abuse None. RADIATION DOSE: 20.24 CTDI (mGy) COMPARISON: No prior exams available for comparison. TECHNIQUE: Contiguous axial images were obtained using helical multirow detector technique. The vol umetric data was post-processed with multiplanar reconstruction in oblique axial, sagittal, and coron al planes. Using automated exposure control and adjustment of the mA and/or kV according to patient s ize, radiation dose was kept as low as reasonably achievable to obtain optimal diagnostic quality morgan ges. FINDINGS: No acute fracture or spondylolisthesis. Moderate degenerative change at C2-3 and C6-7 with prominent osteophytes. At C6-7 osteophyte results in right lateral recess and foraminal stenosis NG present in the esophagus. CONCLUSION: 1. No acute findings. Moderate degenerative changes. Electronically signed by: Aki Richter MD 03/11/2018 10:28 PM EDT
[2018-03-11] MEDS ORDERED: MORPHINE SULFATE 4 MG/ML INJ IV PUSH ONE (22:30)
[2018-03-11] MEDS ORDERED: LIDOCAINE 1%/EPINEPHrine 1:100,000 SOLN 50 ML VIAL INFIL ONE (22:30)
[2018-03-11] MEDS ORDERED: MORPHINE SULFATE 4 MG/ML INJ IM ONE (23:00)
--- NOTE | 2018-03-11 23:18 | PD ---
Data Data Last Documented VS Vital Signs Date Time Temp Pulse Resp B/P (MAP) Pulse Ox O2 Delivery O2 Flow Rate FiO2 03/11/18 20:03 98.5 119 16 119/73 (88) 100 Orders Orders Ammonia (03/11/18 20:57) Complete Blood Count With Diff (03/11/18 20:57) Comprehensive Metabolic Panel (03/11/18 20:57) Prothrombin Time / Inr (Pt) (03/11/18 20:57) Act Partial Throm Time (Ptt) (03/11/18 20:57) Ct Brain W/O Iv Contrast(Rout) (03/11/18 20:57) Blood Glucose (03/11/18 20:57) Ecg Monitoring (03/11/18 20:57) Iv Access Insert/Monitor (03/11/18 20:57) Oximetry (03/11/18 20:57) Sodium Chloride 0.9% Flush (Ns Flush) (03/11/18 21:00) Ct Cerv Spine W/O Contrast (03/11/18 ) Lidocai-Epi 1%-1:100,000 Inj (Xylocaine- (03/11/18 22:30) Morphine Inj (Morphine Inj) (03/11/18 22:30) Morphine Inj (Morphine Inj) (03/11/18 23:00) Ed Discharge Order (03/11/18 23:08) Labs Laboratory Tests Test 03/11/18 21:05 White Blood Count 14.3 TH/MM3 Red Blood Count 4.40 MIL/MM3 Hemoglobin 12.6 GM/DL Hematocrit 37.9 % Mean Corpuscular Volume 86.2 FL Mean Corpuscular Hemoglobin 28.7 PG Mean Corpuscular Hemoglobin Concent 33.4 % Red Cell Distribution Width 14.7 % Platelet Count 298 TH/MM3 Mean Platelet Volume 9.6 FL Neutrophils (%) (Auto) 71.4 % Lymphocytes (%) (Auto) 17.3 % Monocytes (%) (Auto) 8.0 % Eosinophils (%) (Auto) 2.4 % Basophils (%) (Auto) 0.9 % Neutrophils # (Auto) 10.2 TH/MM3 Lymphocytes # (Auto) 2.5 TH/MM3 Monocytes # (Auto) 1.1 TH/MM3 Eosinophils # (Auto) 0.3 TH/MM3 Basophils # (Auto) 0.1 TH/MM3 CBC Comment DIFF FINAL Differential Comment Prothrombin Time 11.5 SEC Prothromb Time International Ratio 1.1 RATIO Activated Partial Thromboplast Time 24.2 SEC Blood Urea Nitrogen 20 MG/DL Creatinine 0.95 MG/DL Random Glucose 130 MG/DL Total Protein 7.3 GM/DL Albumin 3.4 GM/DL Calcium Level 9.2 MG/DL Alkaline Phosphatase 124 U/L Aspartate Amino Transf (AST/SGOT) 31 U/L Alanine Aminotransferase (ALT/SGPT) 25 U/L Total Bilirubin 0.5 MG/DL Sodium Level 137 MEQ/L Potassium Level 3.9 MEQ/L Chloride Level 104 MEQ/L Carbon Dioxide Level 19.5 MEQ/L Anion Gap 14 MEQ/L Estimat Glomerular Filtration Rate 88 ML/MIN Ammonia 21 MCMOL/L MDM Medical Record Reviewed: Yes Supervised Visit with FALGUNI: No Narrative Course Patient presents with a large laceration of left contreras. I was asked to repair it. The laceration was repaired with sutures, the patient verbally consents. Procedures Procedure Narrative LACERATION LOCATION: Left contreras LENGTH: 15 cm NUMBER OF STITCHES/MICHELLE: 2 long continuous running sutures REPAIR: The area of the laceration was prepped with Betadine and sterilely draped. The laceration was infiltrated with 1% lidocaine with epinephrine. The wound was copiously irrigated and explored without evidence of foreign body , tendon injury or neurovascular injury. The wound was closed using 3-0 nylon simple interrupted. This was a single layer repair. A sterile dressing was applied. The patient was advised to keep the dressing clean and dry. Patient tolerated the procedure well. Diagnosis Primary Impression: Laceration Additional Impressions: Confusion Fall Additional Instruction: Return to ER in 12-14 days for suture removal. Disposition: 01 DISCHARGE HOME Condition: Stable Jay Laird Mar 11, 2018 23:18
[2018-03-11 23:26] VITALS: BP 101/59; PULSE 117; RESP 18; O2SAT 100
== END 2018-03-11 23:30 | disposition home or self-care (01) ==
LOC: NEPE 19:48
DX: S81.812A Laceration without foreign body, left lower leg, initial encounter (principal); R41.0 Disorientation, unspecified; K72.90 Hepatic failure, unspecified without coma; K74.60 Unspecified cirrhosis of liver; K76.9 Liver disease, unspecified; W01.0XXA Fall on same level from slipping, tripping and stumbling without subsequent striking against object, initial encounter; Y92.002 Bathroom of unspecified non-institutional (private) residence as the place of occurrence of the external cause; Z87.891 Personal history of nicotine dependence; Z79.899 Other long term (current) drug therapy; Z94.4 Liver transplant status
CPT/HCPCS: 12005; 70450; 72125; 80053; 82140; 85025; 85610; 85730; 96372; J2270

== ENCOUNTER 2018-03-12 23:58 | Inpatient (IN) | payer OTHER ==
[2018-03-12 23:59] VITALS: BP 119/81; PULSE 132; RESP 18; TEMP 97.8; O2SAT 100
[2018-03-13] VITALS (8 sets, daily range): BP systolic 113–137; BP diastolic 63–82; PULSE 84–124; RESP 17–20; TEMP 97.6–97.9; O2SAT 95–100
[2018-03-13] MEDS ORDERED: AUGM875T3 PO ×2 (00:24)
[2018-03-13] MEDS ORDERED: SODIUM CHLOR 0.9% 250 ML INJ 250 ML IV ONE ×2 (00:30→02:15)
[2018-03-13 00:47] LABS: AUTOMATED NEUTROPHIL # 36.3 TH/MM3 (1.8-7.7); BASOPHIL # 0.4 TH/MM3 (0-0.2); BASOPHIL % 0.8 % (0.0-2.0); EOSINOPHIL # 0.3 TH/MM3 (0-0.4); EOSINOPHIL % 0.7 % (0.0-4.0); HEMATOCRIT 27.9 % (39.0-51.0); HEMOGLOBIN 9.4 GM/DL (13.0-17.0); LYMPH % 7.5 % (9.0-44.0); LYMPHOCYTE # 3.3 TH/MM3 (1.0-4.8); MEAN CELL VOLUME 98.4 FL (80.0-100.0); MEAN CORPUSCULAR HEMOGLOBIN 33.1 PG (27.0-34.0); MEAN CORPUSCULAR HGB CONC 33.6 % (32.0-36.0); MEAN PLATELET VOLUME 8.7 FL (7.0-11.0); MONO % 9.1 % (0.0-8.0); NEUT % 81.9 % (16.0-70.0); PLATELET COUNT 298 TH/MM3 (150-450); RED BLOOD COUNT 2.84 MIL/MM3 (4.50-5.90); RED CELL DISTRIBUTION WIDTH 15.5 % (11.6-17.2); WHITE BLOOD COUNT 44.3 TH/MM3 (4.0-11.0)
[2018-03-13 00:59] LABS: ALBUMIN 3.5 GM/DL (3.4-5.0); ALT (GPT) 47 U/L (12-78); AST (GOT) 42 U/L (15-37); BICARBONATE 19.5 MEQ/L (21.0-32.0); CALCIUM 8.1 MG/DL (8.5-10.1); CHLORIDE 102 MEQ/L (98-107); CREATININE 1.36 MG/DL (0.60-1.30); GLOMERULAR FILTRATION RATE 58 ML/MIN (>89); GLUCOSE,RANDOM 126 MG/DL (74-106); MAGNESIUM 2.4 MG/DL (1.5-2.5); SODIUM (NA) 134 MEQ/L (136-145)
[2018-03-13 01:02] LABS: BLOOD UREA NITROGEN 34 MG/DL (7-18); INTERNATIONAL NORMALIZED RATIO 1.4 RATIO
[2018-03-13 01:07] LABS: ALKALINE PHOSPHATASE 230 U/L (45-117); TOTAL BILIRUBIN ADULT 11.6 MG/DL (0.2-1.0); TOTAL PROTEIN 6.4 GM/DL (6.4-8.2)
[2018-03-13] MEDS ORDERED: LORazepam 2 MG/ML VIAL IV PUSH ONE (01:15)
--- NOTE | 2018-03-13 01:17 | PD ---
HPI Chief Complaint: Altered Mental Status Time Seen by Provider: 00:15 Travel History International Travel<30 days: No Contact w/Intl Traveler<30days: No Traveled to known affect area: No History of Present Illness HPI The patient is a 38 year old male who presents to the [facility] emergency department with a history of altered mentation that began yesterday. The patient's family reports that throughout the last 48 hours the symptoms have been gradually worsening. The patient's family reports that he did trip and fall going into the shower on March 11. He did get evaluated in the emergency department and had a laceration repaired on the left contreras. The patient's medical history is significant for end-stage liver failure. The patient's family reports that he was evaluated on Tuesday at the [facility] for possible liver transplant. They put in a feeding tube at that time through his nose which continues to be in place. The patient was admitted to the hospital through Tuesday for hyperkalemia. The patient last had paracentesis done on . They report that they have another appointment with [facility] scheduled for the morning. They report that this evening his altered mentation became worse and that he was not able to recognize that his caregivers are his mom and dad. The patient repeatedly is asking the same questions and refuses to go to sleep. The patient appears agitated. The patient is repeatedly asking "what is going on?" and "are you my mom and dad?". According to the patient's family he had a feeding tube placed for supplemental nutrition. Since Tuesday evening he receives tube feeds through his nasogastric feeding tube overnight. They report that he has been eating well throughout the day as well. The patient has not had any vomiting. He does have soft stools, however he is on lactulose. He moved his bowels reportedly 2-3 times today. He has not had any blood in his stool. The patient's family report that he is currently on antibiotic since being discharged from the [facility]. He is on Augmentin. Review of systems is limited in this patient other than what can be obtained from the patient's family as the patient is very confused. They deny him having any recent fevers, worsening cough or congestion, shortness of breath , or abdominal pain. [facility] Past Medical History Narrative Medical The patient's past medical history is significant for alcohol abuse with his last alcoholic beverage reportedly November 29, end-stage liver disease, hepatorenal syndrome, chronic leukocytosis ascites with his last paracentesis on this past week. Asthma: No Autoimmune Disease: No Blood Disorders: No Anxiety: No Depression: No Heart Rhythm Problems: No Cardiovascular Problems: No High Cholesterol: No Chemotherapy: No Chest Pain: No Congestive Heart Failure: No Cirrhosis: Yes COPD: No Diabetes: No Diminished Hearing: No Endocrine: No Gastrointestinal Disorders: Yes (ascites from esld, liver disease) GERD: No Genitourinary: No Hepatitis: Yes (ALCOHOL INDUCED) Hiatal Hernia: No Immune Disorder: No Musculoskeletal: Yes (weak when walking) Neurologic: Yes (weak and tired) Psychiatric: No Reproductive: No Respiratory: No Immunizations Current: Yes Radiation Therapy: No Sleep Apnea: No Thyroid Disease: No Ulcer: No Past Surgical History Narrative Surgical The patient's past surgical history is reportedly none. Other Surgery: Yes (paracentesis on a biweekly basis ongoing) Social History Alcohol Use: No (hx abuse) Tobacco Use: No (quit ) Substance Use: No Allergies-Medications (Allergen,Severity, Reaction): Coded Allergies: No Known Allergies (Verified , 03/13/18) Reported Meds & Prescriptions Reported Meds & Active Scripts Active Oxycodone (Oxycodone HCl) 5 Mg Cap 5 Mg PO Q4H PRN 30 Days Prochlorperazine Maleate 10 Mg Tab 10 Mg PO Q4H PRN 3 Days Senna-Lax (Sennosides) 8.6 Mg Tab 17.2 Mg PO Q12H PRN 30 Days Lactulose Liq (Lactulose) 10 Gm/15 Ml Soln 40 Ml PO BID 30 Days Gnp Vitamin D3 Extra Stre (Cholecalciferol) 1,000 Unit Tab 1,000 Units PO DAILY Gnp Vitamin B-1 (Thiamine HCl) 100 Mg Tab 100 Mg PO DAILY Vitamin B12 (Cyanocobalamin) 100 Mcg Tab 100 Mcg PO DAILY Pantoprazole (Pantoprazole Sodium) 40 Mg Tab 40 Mg PO DAILY Hydroxyzine HCl 50 Mg Tab 50 Mg PO Q6H PRN Cholestyramine 4 Gm/Pkt Powd 4 Gm PO TIDAC 1 packet contains 4 grams of cholestyramine. Pentoxifylline ER (Pentoxifylline) 400 Mg Tab 400 Mg PO Q8H Midodrine 5 Mg Tab 2.5 Mg PO TID@07,12,17 Xifaxan (Rifaximin) 200 Mg Tab 400 Mg PO Q8HR Potassium Chloride ER (Potassium Chloride) 10 Meq Cap 20 Meq PO BID Folic Acid 1 Mg Tablet 1 Mg PO DAILY Sodium Bicarbonate 650 Mg Tab 650 Mg PO Q8HR Reported Augmentin (Amoxicillin-Clavulanate) 875-125 Mg Tab 1 Tab PO BID Spironolactone 100 Mg Tab 100 Mg PO DAILY Review of Systems Except as stated in HPI: all other systems reviewed are Neg General / Constitutional: No: Fever Eyes: No: Visual changes HENT: No: Headaches Cardiovascular: No: Chest Pain or Discomfort Respiratory: No: Shortness of Breath Gastrointestinal: Positive: Loss of Appetite, No: Nausea, Vomiting, Diarrhea, Abdominal Pain, Hematochezia, Changes in Bowel Habits, Indigestion Genitourinary: No: Dysuria Musculoskeletal: No: Pain Skin: No Rash Neurologic: Positive: Change in Mentation, No: Weakness, Focal Abnormalities, Slurred Speech, Sensory Disturbance Psychiatric: Positive: Disorder of Thought, No: Depression Endocrine: No: Polydipsia Hematologic/Lymphatic: No: Easy Bruising Physical Exam Narrative General: The patient is a well-developed well-nourished male, agitated, repeatedly sitting up and then lying back during the evaluation. Head and Neck exam: Head is normocephalic atraumatic. Eyes: EOMI, pupils are equal round and reactive to light. Scleral icterus is noted. Nose: Midline septum with pink mucous membranes Mouth: Dentition unremarkable. Moist mucus membranes. Posterior oropharynx is not erythematous. No tonsillar hypertrophy. Uvula midline. Airway patent. Neck: No palpable lymphadenopathy. No nuchal rigidity. No thyromegaly. Cardiovascular: Sinus tachycardia in the 120s without murmurs, gallops, or rubs. No pulse deficit to the extremities on simultaneous auscultation and palpation of his radial artery. Lungs: Clear to auscultation bilaterally. No wheezes, rhonchi, or rales. Abdomen: Soft, without tenderness to palpation in all 4 quadrants of the abdomen. No guarding, rebound, or rigidity. Normal bowel sounds are audible. No tenderness on palpation of McBurney's point. Negative Allen sign. Extremities: No clubbing, cyanosis, or edema. 2+ pulses in all 4 extremities. No calf tenderness on palpation. Back: No spinous process tenderness to palpation. No costovertebral angle tenderness to palpation. Neurologic Exam: Cranial nerves 2-12 were intact on exam. Strength is 5/5 in all 4 extremities. No sensory deficits noted. No asterixis. No tremulousness. Skin Exam: No rash noted. Intact skin that is warm and dry. The patient is obviously jaundiced. Data Data Last Documented VS Vital Signs Date Time Temp Pulse Resp B/P (MAP) Pulse Ox O2 Delivery O2 Flow Rate FiO2 03/13/18 00:53 100 Room Air 03/13/18 00:14 124 18 03/12/18 23:59 97.8 Orders Orders Electrocardiogram (03/13/18) Complete Blood Count With Diff (03/13/18) Comprehensive Metabolic Panel (03/13/18) Prothrombin Time / Inr (Pt) (03/13/18) Act Partial Throm Time (Ptt) (03/13/18) Lipase (03/13/18) Urinalysis - C+S If Indicated (03/13/18) Magnesium (Mg) (03/13/18:) Ammonia (03/13/18) Chest, Single Ap (03/13/18) Ct Brain W/O Iv Contrast(Rout) (03/13/18:) Iv Access Insert/Monitor (03/13/18:) Ecg Monitoring (03/13/18) Oximetry (03/13/18) Drug Screen, Random Urine (03/13/18:) Alcohol (Ethanol) (03/13/18:) Thyroid Stimulating Hormone (03/13/18:) Sodium Chlor 0.9% 250 Ml Inj (Ns 250 Ml (03/13/18 00:30) Lorazepam Inj (Ativan Inj) (03/13/18 01:15) Blood Culture (03/13/18 01:43) Lactic Acid Sepsis Protocol (03/13/18 01:43) Piperacil-Tazo 3.375 Gm Premix (Zosyn 3. (03/13/18 02:15) Vancomycin Inj (Vancomycin Inj) (03/13/18 02:15) Sodium Chlor 0.9% 250 Ml Inj (Ns 250 Ml (03/13/18 02:15) Admit Order (Ed Use Only) (03/13/18 02:10) Labs Laboratory Tests Test 03/13/18 00:34 03/13/18 01:50 White Blood Count 44.3 TH/MM3 Red Blood Count 2.84 MIL/MM3 Hemoglobin 9.4 GM/DL Hematocrit 27.9 % Mean Corpuscular Volume 98.4 FL Mean Corpuscular Hemoglobin 33.1 PG Mean Corpuscular Hemoglobin Concent 33.6 % Red Cell Distribution Width 15.5 % Platelet Count 298 TH/MM3 Mean Platelet Volume 8.7 FL Neutrophils (%) (Auto) 81.9 % Lymphocytes (%) (Auto) 7.5 % Monocytes (%) (Auto) 9.1 % Eosinophils (%) (Auto) 0.7 % Basophils (%) (Auto) 0.8 % Neutrophils # (Auto) 36.3 TH/MM3 Lymphocytes # (Auto) 3.3 TH/MM3 Monocytes # (Auto) 4.0 TH/MM3 Eosinophils # (Auto) 0.3 TH/MM3 Basophils # (Auto) 0.4 TH/MM3 CBC Comment AUTO DIFF Differential Total Cells Counted 100 Neutrophils % (Manual) 77 % Band Neutrophils % 9 % Lymphocytes % 4 % Monocytes % 8 % Neutrophils # (Manual) 39.0 TH/MM3 Metamyelocytes 2 % Differential Comment FINAL DIFF MANUAL Platelet Estimate NORMAL Platelet Morphology Comment CLUMPED Target Cells 1+ Ovalocytes 1+ Prothrombin Time 14.0 SEC Prothromb Time International Ratio 1.4 RATIO Activated Partial Thromboplast Time 29.2 SEC Blood Urea Nitrogen 34 MG/DL Creatinine 1.36 MG/DL Random Glucose 126 MG/DL Total Protein 6.4 GM/DL Albumin 3.5 GM/DL Calcium Level 8.1 MG/DL Magnesium Level 2.4 MG/DL Alkaline Phosphatase 230 U/L Aspartate Amino Transf (AST/SGOT) 42 U/L Alanine Aminotransferase (ALT/SGPT) 47 U/L Total Bilirubin 11.6 MG/DL Sodium Level 134 MEQ/L Potassium Level 3.8 MEQ/L Chloride Level 102 MEQ/L Carbon Dioxide Level 19.5 MEQ/L Anion Gap 13 MEQ/L Estimat Glomerular Filtration Rate 58 ML/MIN Ammonia 18 MCMOL/L Lipase 726 U/L Thyroid Stimulating Hormone 3rd Gen 2.870 uIU/ML Ethyl Alcohol Level LESS THAN 3 MG/DL Lactic Acid Level 2.5 mmol/L MDM Medical Decision Making Medical Screen Exam Complete: Yes Emergency Medical Condition: Yes Medical Record Reviewed: Yes Differential Diagnosis Intracranial hemorrhage, versus hepatic encephalopathy, versus uremic encephalopathy, versus sepsis related encephalopathy Narrative Course During the course of the patient's emergency department visit, the patient's history, examination, and differential diagnosis were reviewed with the patient. The patient was placed on a conveyor monitor with oximetry and frequent blood pressure monitoring. The patient had IV access obtained and blood work sent for analysis. The patient had a EKG done on arrival. The patient's EKG shows a sinus tachycardia rate of 118, QRS duration 91. No acute ST segment elevation is noted. T waves are inverted in V1, lead III. The patient was initially provided normal saline at 250 mL IV fluid bolus 1, Ativan 0.5 mg IV for agitation. The patient's laboratory studies were reviewed and remarkable for a white count of 44.3 which is compared to the last white blood cell count done at this facility and was previously 14.3 on March 11, hemoglobin 9.4, platelets 298 with 81.9 neutrophils, CMP is remarkable for sodium of 134, CO2 19.5, BUN 34, creatinine 1.36 which is increased from 0.95 on March 11 suggestive of dehydration, glucose 126, calcium 8.1, total bilirubin was normal at 0.5 and now is elevated at 11.6, AST 42, alk phos 230, lipase is 726, ammonia level is within normal limits at 18. Alcohol level is less than 3. Radiology studies were reviewed and remarkable for Last Impressions Head CT 03/13/1826 Signed Impressions: CONCLUSION: 1. Negative CT Head non contrast. Chest X-Ray 03/13/1826 Signed Impressions: CONCLUSION: Negative examination. Given the patient's leukocytosis and fast change from his laboratory studies just done 2 days ago, the patient had blood cultures 2 added to his workup, along with a lactic acid for sepsis protocol. The patient was started on broad- spectrum antibiotic. The patient will be continued on gentle rehydration. The patient was initially given 250 mL of normal saline, another 250 mL was administered. The patient's results were discussed with the patient, including the plan of care. I explained that further testing and/ or monitoring is indicated based on the patient's history, examination, and/ or laboratory findings. Therefore, I recommended admission for additional evaluation. The patient expressed understanding and was agreeable with this plan. The patient was admitted to the hospital in guarded condition and sent to a bed under the care of [facility] service. Critical Care Narrative Aggregate critical care time was 33 minutes. Time to perform other separately billable procedures was not included in the critical care time. My time did not include minutes spent treating any other patients simultaneously or on activities that did not directly contribute to the patient's treatment. The services I provided to this patient were to treat and/or prevent clinically significant deterioration that could result in: Cardiovascular collapse from sepsis, versus respiratory failure from crystalloid resuscitation, versus cardiac arrhythmia from electrolyte derangements I provided critical care services requiring my management, as noted below: Chart data review, documentation time, medication orders and management, vital sign assessments/reviewing monitor data, ordering and reviewing lab tests, ordering and interpreting/reviewing x-rays and diagnostic studies, care of the patient and discussion of the patient with the admitting physicians. Sepsis Criteria SIRS Criteria (2 or more): Heart rate over 90, WBC > 15579, < 4000 or > 10% bands Severe Sepsis (+one): Lactate >2 Physician Communication Physician Communication The patient's case including history, pertinent physical examination findings, and laboratory studies were discussed with Dr. Ellsworth. [facility] Diagnosis Primary Impression: Altered mental status Qualified Codes: R41.0 - Disorientation, unspecified Additional Impressions: Acute renal insufficiency Hepatorenal syndrome Leukocytosis Qualified Codes: D72.829 - Elevated white blood cell count, unspecified Admitting Information Admitting Physician Requests: Samira Pereyra MD Mar 13, 2018 01:17
--- NOTE | 2018-03-13 01:18 | RADRPT ---
EXAM DATE: 03/13/2018 1:05 AM EDT AGE/SEX: 38 years / Male INDICATIONS: Confusion. CLINICAL DATA: This is the patient's initial encounter. Patient reports that signs and symptoms have been present for 1 day and indicates a pain score of Nonresponsive. MEDICAL/SURGICAL HISTORY: Cirrhosis. Hepatitis C. ETOH abuse None. COMPARISON: [facility] [place], CHEST SINGLE AP, 02/09/2018. . FINDINGS: A single AP view of the chest demonstrates the lungs to be symmetrically aerated without evidence of mass, infiltrate or effusion. The cardiomediastinal contours are unremarkable. Osseous structures a re intact. CONCLUSION: Negative examination. Electronically signed by: Bill Killian MD 03/13/2018 1:17 AM EDT
--- NOTE | 2018-03-13 01:41 | RADRPT ---
EXAM DATE: 03/13/2018 1:25 AM EDT AGE/SEX: 38 years / Male INDICATIONS: Altered mental status. CLINICAL DATA: This is the patient's initial encounter. Patient reports that signs and symptoms have been present for 1 day and indicates a pain score of Nonresponsive. MEDICAL/SURGICAL HISTORY: Cirrhosis. Hepatitis. ETOH abuse None. Paracentesis twice per week RADIATION DOSE: 56.35 CTDI (mGy) COMPARISON: [facility] [place], CT BRAIN W/O CONTRAST, 03/11/2018. . TECHNIQUE: CT of the head without contrast. Using automated exposure control and adjustment of the mA and/or kV according to patient size, radiation dose was kept as low as reasonably achievable to ob tain optimal diagnostic quality images. FINDINGS: Cerebrum: The ventricles are normal for age. No evidence of midline shift, mass lesion, hemorrhage or acute infarction. No extraaxial fluid collections are seen. Posterior Fossa: The cerebellum and brainstem are intact. The 4th ventricle is midline. The cerebe llopontine angle is unremarkable. Extracranial: The visualized portion of the orbits is intact. Skull: The calvaria is intact. No evidence of skull fracture. CONCLUSION: 1. Negative CT Head non contrast. Electronically signed by: Bill Killian MD 03/13/2018 1:39 AM EDT
[2018-03-13 02:13] LABS: LACTIC ACID SEPSIS PROTOCOL 2.5 mmol/L (0.4-2.0)
[2018-03-13] MEDS ORDERED: VANCOMYCIN INJ 1,000 MG in SODIUM CHLOR 0.9% 250 ML INJ 250 ML IV ONE (02:15)
[2018-03-13] MEDS ORDERED: PIPERACIL-TAZO 3.375 GM PREMIX 50 ML IV ONE (02:15)
[2018-03-13] MEDS ORDERED: SODIUM CHLORIDE 0.9% FLUSH 10 ML FLUSH IV FLUSH PRN (02:30)
[2018-03-13] MEDS ORDERED: MAGNESIUM HYDROXIDE SUSP 30 ML CUP PO PRN (02:30)
[2018-03-13] MEDS ORDERED: SENNOSIDES 8.6 MG TAB PO PRN (02:30)
[2018-03-13] MEDS ORDERED: NALOXONE HCL 0.4 MG/ML AMP IV PUSH PRN (02:30)
[2018-03-13] MEDS ORDERED: LACTULOSE SYRUP 20 GM/30 ML CUP PO PRN (02:30)
[2018-03-13] MEDS ORDERED: BISACODYL 10 MG SUPP RECTAL PRN (02:30)
[2018-03-13 02:52] LABS: BANDS 9 % (0-6); LYMPHOCYTES 4 % (9-44); METAMYELOCYTES 2 % (0-1); MONOCYTES 8 % (0-8); POLYS (SEG NEUTROPHILS) 77 % (16-70)
[2018-03-13 02:54] LABS: OVALOCYTES 1+ (NORMAL); TARGET CELLS 1+ (NORMAL)
--- NOTE | 2018-03-13 02:58 | HHI.HP ---
[facility] Gabriel Gil, DO Admission Diagnosis AMS, leukocytosis, dehydration Diagnoses: Travel History International Travel<30 Days: No Contact w/Intl Traveler <30 Da: No Traveled to Known Affected Are: No History of Present Illness 38-year-old male with past medical history significant for end-stage liver disease secondary to alcohol abuse, hepatorenal syndrome and chronic leukocytosis was brought to the emergency department for the evaluation of altered mental status. The patient is agitated and disoriented during her interview. HPI obtained from emergency department documentation. The patient' s family reported that the patient has been gradually more confused and disoriented. He suffered a fall on March 11 and was evaluated in the emergency department. The patient was recently hospitalized for hyperkalemia. His last paracentesis was . He routinely undergoes paracentesis approximately every 7-10 days. He has a Dobbhoff in place and undergoes tube feeding at night for nutritional supplementation. He is currently being evaluated by the [facility] for liver transplantation. Review of Systems Unable to obtain secondary to patient's clinical condition Past Family Social History Past Medical History (Obtained from medical records) Alcohol Abuse ESLD Hepatorenal Syndrome Chronic leukocytosis Past Surgical History Patient denies any surgical history Reported Medications Reported Meds & Active Scripts Active Oxycodone (Oxycodone HCl) 5 Mg Cap 5 Mg PO Q4H PRN 30 Days Prochlorperazine Maleate 10 Mg Tab 10 Mg PO Q4H PRN 3 Days Senna-Lax (Sennosides) 8.6 Mg Tab 17.2 Mg PO Q12H PRN 30 Days Lactulose Liq (Lactulose) 10 Gm/15 Ml Soln 40 Ml PO BID 30 Days Gnp Vitamin D3 Extra Stre (Cholecalciferol) 1,000 Unit Tab 1,000 Units PO DAILY Gnp Vitamin B-1 (Thiamine HCl) 100 Mg Tab 100 Mg PO DAILY Vitamin B12 (Cyanocobalamin) 100 Mcg Tab 100 Mcg PO DAILY Pantoprazole (Pantoprazole Sodium) 40 Mg Tab 40 Mg PO DAILY Hydroxyzine HCl 50 Mg Tab 50 Mg PO Q6H PRN Cholestyramine 4 Gm/Pkt Powd 4 Gm PO TIDAC 1 packet contains 4 grams of cholestyramine. Pentoxifylline ER (Pentoxifylline) 400 Mg Tab 400 Mg PO Q8H Midodrine 5 Mg Tab 2.5 Mg PO TID@07,12,17 Xifaxan (Rifaximin) 200 Mg Tab 400 Mg PO Q8HR Potassium Chloride ER (Potassium Chloride) 10 Meq Cap 20 Meq PO BID Folic Acid 1 Mg Tablet 1 Mg PO DAILY Sodium Bicarbonate 650 Mg Tab 650 Mg PO Q8HR Reported Augmentin (Amoxicillin-Clavulanate) 875-125 Mg Tab 1 Tab PO BID Spironolactone 100 Mg Tab 100 Mg PO DAILY Allergies: Coded Allergies: No Known Allergies (Verified , 03/13/18) Family History Negative for CAD/DM Social History Prior heavy alcohol use, according to family last drink was in November. Positive tobacco. Physical Exam Vital Signs Vital Signs Date Time Temp Pulse Resp B/P (MAP) Pulse Ox O2 Delivery O2 Flow Rate FiO2 03/13/18 02:28 118 18 137/74 (95) 100 Room Air 03/13/18 00:53 100 Room Air 03/13/18 00:14 124 18 121/63 (82) 100 Room Air 03/13/18 00:14 126 20 100 Room Air 03/12/18 23:59 97.8 132 18 119/81 (94) 100 Physical Exam GENERAL: Cachectic appearing male lying in bed, moderately agitated SKIN: No rashes, ecchymoses or lesions. Cool and dry. Positive jaundice HEAD: Atraumatic. Normocephalic. No temporal or scalp tenderness. EYES: Pupils equal round and reactive. Extraocular motions intact. Positive scleral icterus. No injection or drainage. ENT: Nose without bleeding, purulent drainage or septal hematoma. Throat without erythema, tonsillar hypertrophy or exudate. Uvula midline. Airway patent. NECK: Trachea midline. No JVD or lymphadenopathy. Supple, nontender, no meningeal signs. CARDIOVASCULAR: Regular rate and rhythm without murmurs, gallops, or rubs. RESPIRATORY: Clear to auscultation. Breath sounds equal bilaterally. No wheezes , rales, or rhonchi. GASTROINTESTINAL: Abdomen soft, non-tender, nondistended. No hepato-splenomegaly , or palpable masses. No guarding. MUSCULOSKELETAL: Extremities without clubbing, cyanosis, or edema. No joint tenderness, effusion, or edema noted. No calf tenderness. NEUROLOGICAL: Awake and alert. Cranial nerves II through XII intact. Moves all 4 extremities. Able to tell me that he is at [facility] in his name however is very confused. Laboratory Laboratory Tests Test 03/13/18 00:34 03/13/18 01:50 White Blood Count 44.3 Red Blood Count 2.84 Hemoglobin 9.4 Hematocrit 27.9 Mean Corpuscular Volume 98.4 Mean Corpuscular Hemoglobin 33.1 Mean Corpuscular Hemoglobin Concent 33.6 Red Cell Distribution Width 15.5 Platelet Count 298 Mean Platelet Volume 8.7 Neutrophils (%) (Auto) 81.9 Lymphocytes (%) (Auto) 7.5 Monocytes (%) (Auto) 9.1 Eosinophils (%) (Auto) 0.7 Basophils (%) (Auto) 0.8 Neutrophils # (Auto) 36.3 Lymphocytes # (Auto) 3.3 Monocytes # (Auto) 4.0 Eosinophils # (Auto) 0.3 Basophils # (Auto) 0.4 CBC Comment AUTO DIFF Prothrombin Time 14.0 Prothromb Time International Ratio 1.4 Activated Partial Thromboplast Time 29.2 Blood Urea Nitrogen 34 Creatinine 1.36 Random Glucose 126 Total Protein 6.4 Albumin 3.5 Calcium Level 8.1 Magnesium Level 2.4 Alkaline Phosphatase 230 Aspartate Amino Transf (AST/SGOT) 42 Alanine Aminotransferase (ALT/SGPT) 47 Total Bilirubin 11.6 Sodium Level 134 Potassium Level 3.8 Chloride Level 102 Carbon Dioxide Level 19.5 Anion Gap 13 Estimat Glomerular Filtration Rate 58 Ammonia 18 Lipase 726 Thyroid Stimulating Hormone 3rd Gen 2.870 Ethyl Alcohol Level LESS THAN 3 Lactic Acid Level 2.5 Date/Time Source Procedure Growth Status 03/13/18 01:50 Blood Peripheral Aerobic Blood Culture Pending Received 03/13/18 01:50 Blood Peripheral Anaerobic Blood Culture Pending Received Result Diagram: 03/13/183303/13/1833 Caprini VTE Risk Assessment Caprini VTE Risk Assessment: No/Low Risk (score <= 1) Caprini Risk Assessment Model Point Value = 1 Point Value = 2 Point Value = 3 Point Value = 5 Age 41-60 Minor surgery BMI > 25 kg/m2 Swollen legs Varicose veins or History of unexplained or recurrent spontaneous Oral contraceptives or hormone replacement Sepsis (< 1 month) Serious lung disease, including pneumonia (< 1 month) Abnormal pulmonary function Acute myocardial infarction Congestive heart failure (< 1 month) History of inflammatory bowel disease Medical patient at bed rest Age 61-74 Arthroscopic surgery Major open surgery (> 45 min) Laparoscopic surgery (> 45 min) Malignancy Confined to bed (> 72 hours) Immobilizing plaster cast Central venous access Age >= 75 History of VTE Family history of VTE Factor V Leiden Prothrombin [id number] Lupus anticoagulant Anticardiolipin antibodies Elevated serum homocysteine Heparin-induced thrombocytopenia Other congenital or acquired thrombophilia Stroke (< 1 month) Elective arthroplasty Hip, pelvis, or leg fracture Acute spinal cord injury (< 1 month) Prophylaxis Regimen Total Risk Factor Score Risk Level Prophylaxis Regimen 0-1 Low Early ambulation 2 Moderate Order ONE of the following: *Sequential Compression Device (SCD) *Heparin 5000 units SQ BID 3-4 Higher Order ONE of the following medications: *Heparin 5000 units SQ TID *Enoxaparin/Lovenox 40 mg SQ daily (WT < 150 kg, CrCl > 30 mL/min) *Enoxaparin/Lovenox 30 mg SQ daily (WT < 150 kg, CrCl > 10-29 mL/min) *Enoxaparin/Lovenox 30 mg SQ BID (WT < 150 kg, CrCl > 30 mL/min) AND/OR *Sequential Compression Device (SCD) 5 or more Highest Order ONE of the following medications: *Heparin 5000 units SQ TID (Preferred with Epidurals) *Enoxaparin/Lovenox 40 mg SQ daily (WT < 150 kg, CrCl > 30 mL/min) *Enoxaparin/Lovenox 30 mg SQ daily (WT < 150 kg, CrCl > 10-29 mL/min) *Enoxaparin/Lovenox 30 mg SQ BID (WT < 150 kg, CrCl > 30 mL/min) AND *Sequential Compression Device (SCD) Assessment and Plan Assessment and Plan Assessment/plan: 1. End-stage liver disease/elevated bilirubin/hepatorenal syndrome Patient currently undergoing evaluation for liver transplantation at [place] Bilirubin greatly increased from 2 days ago, currently 11.6 Gastroenterology consulted, appreciate assistance Continue home medications including rifaximin, lactulose, pentoxifylline 2. Altered mental status Unclear etiology - likely secondary to ESLD Head CT negative for acute process Ammonia level within normal limits 3. Chronic leukocytosis White blood cell count 44.3, patient with chronic leukocytosis Chest x-ray negative for acute process, personally reviewed Urine pending CT of the abdomen/pelvis pending Likely not infectious in origin, continue to monitor FEN Regular diet Electrolytes: Monitor and replete as needed Physician Certification 2 Midnight Certification Type: Admission for Inpatient Services Order for Inpatient Services The services are ordered in accordance with Medicare regulations or non- Medicare payer requirements, as applicable. In the case of services not specified as inpatient-only, they are appropriately provided as inpatient services in accordance with the 2-midnight benchmark. Estimated LOS (days): 2 2 days is the estimated time the patient will need to remain in the hospital, assuming treatment plan goals are met and no additional complications. Post-Hospital Plan: Not yet determined Sahara Ellsworth MD Mar 13, 2018 02:58
[2018-03-13] MEDS ORDERED: PILL SPLITTER OTHER PRN (03:00)
--- NOTE | 2018-03-13 03:39 | RADRPT ---
EXAM DATE: 03/13/2018 3:11 AM EDT AGE/SEX: 38 years / Male INDICATIONS: Altered mental status. Liver disorder. CLINICAL DATA: This is the patient's initial encounter. Patient reports that signs and symptoms have been present for 1 day and indicates a pain score of 0/10. MEDICAL/SURGICAL HISTORY: Cirrhosis. Hepatitis. Ascites Endstage liver disease. . Paracentes is biweekly RADIATION DOSE: 11.89 CTDI (mGy) COMPARISON: [facility] [place], CT ABDOMEN & PELVIS W/O CONTRAST, 02/14/2018. . TECHNIQUE: Multiple contiguous axial images were obtained through the abdomen. Images were obtained using multiple row detector helical technique. Using dose reduction techniques, radiation dose was ke pt as low as reasonably achievable to obtain optimal diagnostic quality images. FINDINGS: Large amount of ascites throughout abdomen. Feeding tube enters the duodenum Lower Lungs: The visualized lower lungs are clear. Liver: The liver has a homogeneous density without space-occupying lesion. There is no dilation of th e biliary tree. Spleen: Homogeneous density without enlargement. Pancreas: Unremarkable without mass or calcification. Kidneys: Normal in size and shape. No evidence of mass or hydronephrosis. Adrenal Glands: Unremarkable. Aorta: The aorta and proximal iliac vessels are grossly unremarkable without aneurysmal dilation. Bowel/Mesentery: The bowel loops are grossly unremarkable. The cecum and sigmoid colon have a normal configuration. Abdominal Wall: Intact. Retroperitoneum: No evidence of adenopathy in the retrocrural, para-aortic, or deep pelvic regions. Bladder: Contours are smooth. Reproductive Organs: No abnormal masses or calcifications seen. Inguinal: The inguinal region is unremarkable without evidence of adenopathy. Bony Structures: Unremarkable. CONCLUSION: 1. Large amount of ascites otherwise unremarkable CT scan of the abdomen and pelvis without contrast Electronically signed by: Bill Killian MD 03/13/2018 3:37 AM EDT
[2018-03-13] MEDS: MIDODRINE 5 MG TAB PO SCH ×3 (06:27→17:00)
[2018-03-13] MEDS: SODIUM BICARBONATE 650 MG TAB PO SCH ×3 (06:27→21:23)
[2018-03-13] MEDS: RIFAXIMIN 200 MG TAB PO SCH ×3 (06:27→21:23)
[2018-03-13] MEDS: PENTOXIFYLLINE 400 MG CONTROLLED RELEASE TAB PO SCH ×2 (06:27→13:07)
[2018-03-13] MEDS: DOCUSATE SODIUM 50 MG/SENNA 8.6 MG TAB PO SCH ×2 (09:00→21:00)
[2018-03-13] MEDS ORDERED: POTASSIUM CHLORIDE 10 MEQ CAP PO SCH (09:00)
[2018-03-13] MEDS: LACTULOSE SYRUP 20 GM/30 ML CUP PO SCH ×2 (09:30→21:24)
[2018-03-13] MEDS: SODIUM CHLORIDE 0.9% FLUSH 10 ML FLUSH IV FLUSH SCH ×2 (09:31→21:24)
[2018-03-13] MEDS: SPIRONOLACTONE 100 MG TAB PO SCH (09:31)
[2018-03-13] MEDS: CHOLESTYRAMINE 4 GM PACKET PO SCH ×3 (09:34→17:00)
[2018-03-13] MEDS ORDERED: HALOPERIDOL LACTATE 5 MG/ML AMP IV ONE (10:00)
--- NOTE | 2018-03-13 11:52 | PD.WCN.NOT ---
Wound Consult Description: Wound consult ordered By Dina AVALOS Communicated with: Rahel STANTON, Recommendation: 1. Reposition patient very 2 hours for comfort and offloading. 2. Cleanse Left contreras incision/partial thickness wound with normal saline pat dry. 3. Apply single layer Xeroform to incision and partial thickness wound cover with non stick dressing and secure with rolled gauze/paper tape. 4. Change dressing every day or as needed for dislodgement/exudate. 5. Cleanse sacral/coccyx area with remedy soft cloth barrier wipes 6. Apply thick layer of Calazime cream to sacral/coccyx BID or as needed for incontinence Additional Information: Patient was seen today by proposal manager writer and Rahel STANTON for wound management.Patient alert in bed oriented x 0.Continuously repeated "who am I'.Dressing removed from left lower extremity contreras area.Patient has intact dry sutures well approximated with no exudate noted.Proximal to suture line patient has partial thickness trauma wound with wound base measuring 4.0cm x1.8cm x <0.2cm wound base is beefy red non granular tissue .Wound edges are irregular and even with wound base.Scant bloody exudate noted without odor.Wound cleansed with normal saline pat dry.Xeroform single layer applied to suture line and partial thickness wound covered with Telfa non adherent dressing secured with rolled gauze/paper tape.Dressing signed and dated.Patient required 1 person assistance to reposition to right side were proposal manager writer was able to visualize sacral/coccyx area.Patient noted to have a moisture friction denuded area measuring ~1.0cm x1.0cm locate on proximal left buttocks.Small intact DTI measuring ~0.7cm x ~ 0.5cm dark purple locate in sacral area with periwound blanchable.Patient unable to give history on how he may have acquired DTI.Sacral/coccyx area cleansed with remedy soft cloth barrier wipes and Calazime cream applied patient repositioned to right side for offloading. [facility] Mar 13, 2018 11:52
--- NOTE | 2018-03-13 12:43 | HHI.PR ---
Objective Vitals Vital Signs Date Time Temp Pulse Resp B/P (MAP) Pulse Ox O2 Delivery O2 Flow Rate FiO2 03/13/18 12:00 97.8 113 17 117/82 (94) 100 03/13/18 08:00 97.8 113 17 121/72 (88) 100 03/13/18 04:10 03/13/18 04:00 97.6 84 20 113/66 (82) 98 03/13/18 02:28 118 18 137/74 (95) 100 Room Air 03/13/18 00:53 100 Room Air 03/13/18 00:14 124 18 121/63 (82) 100 Room Air 03/13/18 00:14 126 20 100 Room Air 03/12/18 23:59 97.8 132 18 119/81 (94) 100 I/O 03/12/18 03/12/18 03/12/18 03/13/18 03/13/18 03/13/18 07:00 15:00 23:00 07:00 15:00 23:00 Intake Total 800 ml Balance 800 ml Intake IV Total 800 ml # Bowel Movements 1 Result Diagram: 03/13/18 0034 03/13/18 0034 Lisette Rosenberg MD Mar 13, 2018 12:43
--- NOTE | 2018-03-13 12:49 | PD.CONS ---
HPI History of Present Illness This is a 38 year old M with end stage liver disease who has been followed by our service, due to lack of insurance referral to a tertiary center for liver transplant work up has been difficult. Patient was approved for medicaid on March 03 and went to see Dr. Rene Arias, [place] liver transplant specialist on Tuesday, who began process for liver work up. Pt had multiple labs drawn, he was on his way home when [facility] called and told him to return for admission due to hyperkalemia. Pt was admitted from Tuesday until Tuesday, per mother his dose of Spironolactone was decreased and he was placed on an antibiotic. He was discharged home on Tuesday night. On Tuesday pt was mildly confused in the morning, per mother he fell and sustained a large laceration to his left contreras and was brought to the ER for evaluation, head CT was negative, multiple stitches were placed in his left contreras and he was discharged home. Per mother she does not think he hit his head during the fall. Pt was brought back into the ER over night for increasing confusion, at this time pt is awake but not oriented to self, head CT is negative. Pt is confused and unable to provide any history, therefore all history was obtained through mother and father at bedside. (Ava Santos) PFSH Past Medical History (Obtained from medical records) Alcohol Abuse ESLD Hepatorenal Syndrome Chronic leukocytosis Past Surgical History Paracentesis (vAa Santos) Coded Allergies: No Known Allergies (Verified , 03/13/18) Family History Negative for CAD/DM Social History Prior heavy alcohol use, according to family last drink was in November. Positive tobacco. (Ava Santos) Review of Systems Pt denies any complaints at this time, however, he is confused and unable to provide a reliable history (Ava Santos) GI Exam Vitals I&O Vital Signs Date Time Temp Pulse Resp B/P (MAP) Pulse Ox O2 Delivery O2 Flow Rate FiO2 03/13/18 08:00 97.8 113 17 121/72 (88) 100 03/13/18 04:10 03/13/18 04:00 97.6 84 20 113/66 (82) 98 03/13/18 02:28 118 18 137/74 (95) 100 Room Air 03/13/18 00:53 100 Room Air 03/13/18 00:14 124 18 121/63 (82) 100 Room Air 03/13/18 00:14 126 20 100 Room Air 03/12/18 23:59 97.8 132 18 119/81 (94) 100 I/O 03/12/18 03/12/18 03/12/18 03/13/18 03/13/18 03/13/18 07:00 15:00 23:00 07:00 15:00 23:00 Intake Total 800 ml Balance 800 ml Intake IV Total 800 ml # Bowel Movements 1 Imaging Last Impressions Head CT 03/13/18 002 Signed Impressions: CONCLUSION: 1. Negative CT Head non contrast. Chest X-Ray 03/13/1826 Signed Impressions: CONCLUSION: Negative examination. Abdomen/Pelvis CT 03/13/18 0000 Signed Impressions: CONCLUSION: 1. Large amount of ascites otherwise unremarkable CT scan of the abdomen and p endy without contrast Laboratory Test 03/13/18 00:34 03/13/18 01:50 03/13/18 04:05 White Blood Count 44.3 TH/MM3 Red Blood Count 2.84 MIL/MM3 Hemoglobin 9.4 GM/DL Hematocrit 27.9 % Mean Corpuscular Volume 98.4 FL Mean Corpuscular Hemoglobin 33.1 PG Mean Corpuscular Hemoglobin Concent 33.6 % Red Cell Distribution Width 15.5 % Platelet Count 298 TH/MM3 Mean Platelet Volume 8.7 FL Neutrophils (%) (Auto) 81.9 % Lymphocytes (%) (Auto) 7.5 % Monocytes (%) (Auto) 9.1 % Eosinophils (%) (Auto) 0.7 % Basophils (%) (Auto) 0.8 % Neutrophils # (Auto) 36.3 TH/MM3 Lymphocytes # (Auto) 3.3 TH/MM3 Monocytes # (Auto) 4.0 TH/MM3 Eosinophils # (Auto) 0.3 TH/MM3 Basophils # (Auto) 0.4 TH/MM3 CBC Comment AUTO DIFF Differential Total Cells Counted 100 Neutrophils % (Manual) 77 % Band Neutrophils % 9 % Lymphocytes % 4 % Monocytes % 8 % Neutrophils # (Manual) 39.0 TH/MM3 Metamyelocytes 2 % Differential Comment FINAL DIFF MANUAL Platelet Estimate NORMAL Platelet Morphology Comment CLUMPED Target Cells 1+ Ovalocytes 1+ Prothrombin Time 14.0 SEC Prothromb Time International Ratio 1.4 RATIO Activated Partial Thromboplast Time 29.2 SEC Blood Urea Nitrogen 34 MG/DL Creatinine 1.36 MG/DL Random Glucose 126 MG/DL Total Protein 6.4 GM/DL Albumin 3.5 GM/DL Calcium Level 8.1 MG/DL Magnesium Level 2.4 MG/DL Alkaline Phosphatase 230 U/L Aspartate Amino Transf (AST/SGOT) 42 U/L Alanine Aminotransferase (ALT/SGPT) 47 U/L Total Bilirubin 11.6 MG/DL Sodium Level 134 MEQ/L Potassium Level 3.8 MEQ/L Chloride Level 102 MEQ/L Carbon Dioxide Level 19.5 MEQ/L Anion Gap 13 MEQ/L Estimat Glomerular Filtration Rate 58 ML/MIN Ammonia 18 MCMOL/L Lipase 726 U/L Thyroid Stimulating Hormone 3rd Gen 2.870 uIU/ML Ethyl Alcohol Level LESS THAN 3 MG/DL Lactic Acid Level 2.5 mmol/L 2.7 mmol/L Date/Time Source Procedure Growth Status 03/13/18 01:50 Blood Peripheral Aerobic Blood Culture Pending Received 03/13/18 01:50 Blood Peripheral Anaerobic Blood Culture Pending Received Physical Examination HEENT: (+) icterus CHEST: Even/unlabored CARDIAC: RRR ABDOMEN: Distended, soft, nontender, bowel sounds active SKIN: (+) jaundice. TOOL WORKER: Awake not oriented (vAa Santos) Assessment and Plan Plan Assessment: - End stage liver disease with portal hypertension and hepatorenal syndrome. Secondary to ETOH abuse- last ETOH was in November Referral to tertiary center has been difficult due to no insurance, pt was approved for Medicaid on March 03 and went to [facility] last Tuesday. Started work up for liver transplant at [facility], Dr. Rene Arias, liver transplant specialist and Dr. Miranda, intelligence director. Pt had multiple labs drawn on Tuesday, on his way home was called by [facility] and told to return for admission due to hyperkalemia. Pt was admitted from til Tuesday. Per pts mother, Spironolactone dosage was decreased. - Confusion- pt acutely disoriented- he is awake and verbal but unsure of his own name- [id number] He is on Xifaxan and Lactulose Of note, reports of new antibiotic. Mother is unsure which one he is on. - Ascites- CT abdomen and pelvis (03/13) revealed large volume of ascites Paracentesis x 2 at [facility]- Tuesday and Tuesday Pt on Spironolactone - Poor PO intake- pt has Dobhoff tube for feedings - Leukocytosis- chronic- previous bone marrow biopsy- followed by Dr. Hahn Plan: Request records from [facility] Continue Xifaxan and Lactulose Feeding through Dobhoff Spironolactone Therapeutic paracentesis Further recommendations based on clinical course Pt has been seen and examined by myself and Dr. Markham and this note is written on his behalf (Ava Santos) Physician Comments Seen and examined with REINIER, no bleeding, remains icteric and encephalopathic. Recent admission at [facility] for same. Liver transplant castillo in progress. Lactulose/ rifaximin. Monitor labs, fall precautions. Case management to contact [facility]. Will follow, thank you (Tamia Markham MD) Ava Santos Mar 13, 2018 12:49 Tamia Markham MD Mar 13, 2018 16:18
[2018-03-13 14:42] LABS: HEMATOCRIT 26.4 % (39.0-51.0); HEMOGLOBIN 8.9 GM/DL (13.0-17.0); MEAN CELL VOLUME 98.1 FL (80.0-100.0); MEAN CORPUSCULAR HGB CONC 33.7 % (32.0-36.0); MEAN PLATELET VOLUME 8.3 FL (7.0-11.0); PLATELET COUNT 289 TH/MM3 (150-450); RED BLOOD COUNT 2.69 MIL/MM3 (4.50-5.90); RED CELL DISTRIBUTION WIDTH 15.2 % (11.6-17.2); WHITE BLOOD COUNT 39.8 TH/MM3 (4.0-11.0)
[2018-03-13 14:52] LABS: INTERNATIONAL NORMALIZED RATIO 1.4 RATIO; PROTHROMBIN TIME - PATIENT 14.1 SEC (9.8-11.6)
[2018-03-13] MEDS: POTASSIUM CHLORIDE 20 MEQ PWD PACKET DOBHOFF SCH ×2 (16:00→21:24)
--- NOTE | 2018-03-13 16:24 | HHI.PR ---
Addendum to Inpatient Note Additional Information Patient seen and examined, discussed in length with his mother and father Patient is confused only was able to mention his name and recognize his mother and the president so he is disoriented to time and place We will continue current management with hydration monitor WBC, GI is following We will continue liver failure regimen, appreciate GI assistance Lisette Rosenberg MD Mar 13, 2018 16:24
--- NOTE | 2018-03-13 16:36 | RADRPT ---
EXAM DATE: 03/13/2018 3:42 PM EDT AGE/SEX: 38 years / Male INDICATIONS: Evaluate for ascites. CLINICAL DATA: This is the patient's sequela encounter. Patient reports that signs and symptoms have been present for 1 day and indicates a pain score of Nonresponsive. MEDICAL/SURGICAL HISTORY: . End stage liver disease. ETOH. Cirrhosis. Renal disease. . Para centesis. COMPARISON: No prior exams available for comparison. FINDINGS: Ultrasound examination demonstrates moderate to large amount of ascites with volume estimated at appr oximately 4-5 liters. CONCLUSION: 1. Moderate to large amount of ascites of approximately 4 to 5 Liters. Electronically signed by: Vitaly Salgado MD 03/13/2018 4:35 PM EDT
--- NOTE | 2018-03-13 23:01 | EKG ---
Date Performed: 03/13/2018 Time Performed: 00:47:00 PTAGE: 38 years EKG: SINUS TACHYCARDIA NONSPECIFIC T-WAVE ABNORMALITY ABNORMAL RHYTHM ECG INTERPRETATION BASED O N A DEFAULT AGE OF 38 YEARS PREVIOUS TRACING : 02/15/2018 01.45 DOCTOR: Stephane Cardenas Interpretating Date/Time 03/13/2018 22:55:06
[2018-03-14] VITALS: BP 121/79; PULSE 111; RESP 17; TEMP 97.6; O2SAT 96
[2018-03-14] MEDS: RIFAXIMIN 200 MG TAB PO SCH ×3 (06:53→20:15)
[2018-03-14] MEDS: MIDODRINE 5 MG TAB PO SCH ×3 (06:53→17:30)
[2018-03-14] MEDS: SODIUM BICARBONATE 650 MG TAB PO SCH ×3 (06:53→20:15)
[2018-03-14 07:27] LABS: BASOPHIL # 0.2 TH/MM3 (0-0.2); BASOPHIL % 0.5 % (0.0-2.0); EOSINOPHIL # 0.4 TH/MM3 (0-0.4); EOSINOPHIL % 0.9 % (0.0-4.0); HEMATOCRIT 27.3 % (39.0-51.0); HEMOGLOBIN 9.1 GM/DL (13.0-17.0); LYMPH % 6.5 % (9.0-44.0); LYMPHOCYTE # 2.6 TH/MM3 (1.0-4.8); MEAN CORPUSCULAR HEMOGLOBIN 32.5 PG (27.0-34.0); MEAN CORPUSCULAR HGB CONC 33.2 % (32.0-36.0); MEAN PLATELET VOLUME 8.7 FL (7.0-11.0); MONO % 8.5 % (0.0-8.0); MONOCYTE # 3.4 TH/MM3 (0-0.9); NEUT % 83.6 % (16.0-70.0); PLATELET COUNT 287 TH/MM3 (150-450); RED BLOOD COUNT 2.79 MIL/MM3 (4.50-5.90); RED CELL DISTRIBUTION WIDTH 15.8 % (11.6-17.2); WHITE BLOOD COUNT 39.5 TH/MM3 (4.0-11.0)
[2018-03-14 07:56] LABS: ALBUMIN 3.1 GM/DL (3.4-5.0); ALT (GPT) 43 U/L (12-78); AST (GOT) 36 U/L (15-37); BICARBONATE 18.1 MEQ/L (21.0-32.0); BLOOD UREA NITROGEN 39 MG/DL (7-18); CALCIUM 8.3 MG/DL (8.5-10.1); CHLORIDE 105 MEQ/L (98-107); CREATININE 1.11 MG/DL (0.60-1.30); GLOMERULAR FILTRATION RATE 73 ML/MIN (>89); GLUCOSE,RANDOM 120 MG/DL (74-106); SODIUM (NA) 137 MEQ/L (136-145)
[2018-03-14 07:58] LABS: ALKALINE PHOSPHATASE 217 U/L (45-117); TOTAL BILIRUBIN ADULT 10.9 MG/DL (0.2-1.0); TOTAL PROTEIN 6.3 GM/DL (6.4-8.2)
[2018-03-14 08:00] VITALS: BP 122/80; PULSE 102; RESP 16; TEMP 97.6; O2SAT 99
[2018-03-14 08:40] LABS: BANDS 6 % (0-6); LYMPHOCYTES 3 % (9-44); METAMYELOCYTES 1 % (0-1); MONOCYTES 7 % (0-8); NEUTROPHIL # MANUAL DIFF 35.6 TH/MM3 (1.8-7.7); POLYS (SEG NEUTROPHILS) 83 % (16-70); TARGET CELLS 1+ (NORMAL); TOXIC GRANULATION 1+ (NORMAL)
[2018-03-14] MEDS: DOCUSATE SODIUM 50 MG/SENNA 8.6 MG TAB PO SCH ×2 (09:00→20:17)
[2018-03-14] MEDS: SODIUM CHLORIDE 0.9% FLUSH 10 ML FLUSH IV FLUSH SCH ×2 (09:39→20:19)
[2018-03-14] MEDS: POTASSIUM CHLORIDE 20 MEQ PWD PACKET DOBHOFF SCH ×2 (09:39→20:16)
[2018-03-14] MEDS: CHOLESTYRAMINE 4 GM PACKET PO SCH ×3 (09:39→17:30)
[2018-03-14] MEDS: SPIRONOLACTONE 100 MG TAB PO SCH (09:40)
[2018-03-14] MEDS: LACTULOSE SYRUP 20 GM/30 ML CUP PO SCH ×2 (09:40→20:19)
[2018-03-14] MEDS ORDERED: SODIUM CHLOR 0.9% 1000 ML INJ 1,000 ML IV ONE (11:08)
--- NOTE | 2018-03-14 11:48 | HHI.PR ---
Subjective Remarks Patient resting in bed closed eyes he does not answer question, his mother and father at the bedside because he was able to recognize them He did not answer my question No fever however lactic acid continue to be 2.7, patient has a chronic leukocytosis therefore cannot depend on it to assess for SBP, I will start Rocephin check ESR CRP, awaiting blood culture, consider ID consult GI following planning on getting further record and contacted [facility], creatinine improved from 1.36-1.11 I will give 2 50 cc bolus of IV fluid, and put on low rate IV fluids repeat lactic acid in a.m., Objective Vitals Vital Signs Date Time Temp Pulse Resp B/P (MAP) Pulse Ox O2 Delivery O2 Flow Rate FiO2 03/14/18 08:00 97.6 102 16 122/80 (94) 99 03/14/18 00:00 97.6 111 17 121/79 (93) 96 03/13/18 20:00 97.9 108 17 114/74 (87) 95 03/13/18 16:00 97.7 111 17 123/69 (87) 100 03/13/18 12:00 97.8 113 17 117/82 (94) 100 I/O 03/13/18 03/13/18 03/13/18 03/14/18 03/14/18 03/14/18 07:00 15:00 23:00 07:00 15:00 23:00 Intake Total 800 ml 120 ml 480 ml 750 ml Output Total 300 ml 100 ml Balance 800 ml -180 ml 380 ml 750 ml Intake Oral 120 ml 480 ml IV Total 800 ml Tube Feeding 750 ml Output Urine Total 300 ml 100 ml Bladder Scan Volume Amount 471 ml 721 ml 386 ml 344 ml # Bowel Movements 1 1 2 Result Diagram: 03/14/18 0636 03/14/18 0636 A/P Assessment and Plan 03/14:No fever however lactic acid continue to be 2.7, patient has a chronic leukocytosis therefore cannot depend on it to assess for SBP, I will start Rocephin check ESR CRP, awaiting blood culture, consider ID consult GI following planning on getting further record and contacted [facility], creatinine improved from 1.36-1.11 I will give 2 50 cc bolus of IV fluid, and put on low rate IV fluids repeat lactic acid in a.m., Addendum: 6:10 PM: Nurse reported 200 cc urine over the last shift despite Seymour catheter ordered, repeat BMP now, earlier creatinine showed improvement, I will order renal workup and consider consult if continue to be low urine output A/P: 1. End-stage liver disease/elevated bilirubin/hepatorenal syndrome Patient undergoing evaluation for liver transplantation at [facility] consulted, appreciate assistance Continue home medications including rifaximin, lactulose, pentoxifylline>> we will hold the latter due to patient has been on it for 6 weeks, recommended 4 weeks 2. Altered mental status Mostly due to hepatic encephalopathy, need to rule out underlying metabolic encephalopathy due to sepsis/SBP Head CT negative for acute process Ammonia level within normal limits 3. Chronic leukocytosis White blood cell count 44.3, patient with chronic leukocytosis Chest x-ray negative for acute process, personally reviewed Urine negative CT of the abdomen/pelvis noted as above Consider antibiotic and ID consultation watch out for SBP, defer decision on paracentesis to GI Discharge Planning Not ready for discharge Lisette Rosenberg MD Mar 14, 2018 11:48
[2018-03-14 12:00] VITALS: BP 111/71; PULSE 111; RESP 17; TEMP 98.5; O2SAT 100
[2018-03-14] MEDS: hydrOXYzine HCL 50 MG TAB PO PRN ×2 (13:04→22:38)
--- NOTE | 2018-03-14 13:17 | HHI.GIFU ---
Subjective Remarks Pt resting in bed He remembers his name and mother today Complaining of some abdominal pain Dr. Brantley was not comfortable with paracentesis due to recent paracentesis on Tuesday No nausea or vomiting Per RN pt tolerated TF overnight (Ava Santos) Objective Vitals I&O Vital Signs Date Time Temp Pulse Resp B/P (MAP) Pulse Ox O2 Delivery O2 Flow Rate FiO2 03/14/18 08:00 97.6 102 16 122/80 (94) 99 03/14/18 00:00 97.6 111 17 121/79 (93) 96 03/13/18 20:00 97.9 108 17 114/74 (87) 95 03/13/18 16:00 97.7 111 17 123/69 (87) 100 I/O 03/13/18 03/13/18 03/13/18 03/14/18 03/14/18 03/14/18 07:00 15:00 23:00 07:00 15:00 23:00 Intake Total 800 ml 120 ml 480 ml 750 ml Output Total 300 ml 100 ml Balance 800 ml -180 ml 380 ml 750 ml Intake Oral 120 ml 480 ml IV Total 800 ml Tube Feeding 750 ml Output Urine Total 300 ml 100 ml Bladder Scan Volume Amount 471 ml 721 ml 386 ml 344 ml # Bowel Movements 1 1 2 Laboratory Laboratory Tests Test 03/13/18 14:28 03/14/18 06:36 White Blood Count 39.8 39.5 Red Blood Count 2.69 2.79 Hemoglobin 8.9 9.1 Hematocrit 26.4 27.3 Mean Corpuscular Volume 98.1 98.0 Mean Corpuscular Hemoglobin 33.0 32.5 Mean Corpuscular Hemoglobin Concent 33.7 33.2 Red Cell Distribution Width 15.2 15.8 Platelet Count 289 287 Mean Platelet Volume 8.3 8.7 Prothrombin Time 14.1 Prothromb Time International Ratio 1.4 Activated Partial Thromboplast Time 28.6 Neutrophils (%) (Auto) 83.6 Lymphocytes (%) (Auto) 6.5 Monocytes (%) (Auto) 8.5 Eosinophils (%) (Auto) 0.9 Basophils (%) (Auto) 0.5 Neutrophils # (Auto) 33.0 Lymphocytes # (Auto) 2.6 Monocytes # (Auto) 3.4 Eosinophils # (Auto) 0.4 Basophils # (Auto) 0.2 CBC Comment AUTO DIFF Differential Total Cells Counted 100 Neutrophils % (Manual) 83 Band Neutrophils % 6 Lymphocytes % 3 Monocytes % 7 Neutrophils # (Manual) 35.6 Metamyelocytes 1 Differential Comment FINAL DIFF MANUAL Toxic Granulation 1+ Platelet Estimate NORMAL Platelet Morphology Comment NORMAL Target Cells 1+ Blood Urea Nitrogen 39 Creatinine 1.11 Random Glucose 120 Total Protein 6.3 Albumin 3.1 Calcium Level 8.3 Alkaline Phosphatase 217 Aspartate Amino Transf (AST/SGOT) 36 Alanine Aminotransferase (ALT/SGPT) 43 Total Bilirubin 10.9 Sodium Level 137 Potassium Level 4.0 Chloride Level 105 Carbon Dioxide Level 18.1 Anion Gap 14 Estimat Glomerular Filtration Rate 73 Date/Time Source Procedure Growth Status 03/13/18 01:50 Blood Peripheral Aerobic Blood Culture - Preliminary NO GROWTH IN 1 DAY Resulted 03/13/18 01:50 Blood Peripheral Anaerobic Blood Culture - Preliminary NO GROWTH IN 1 DAY Resulted Imaging Last Impressions Head CT 03/13/1826 Signed Impressions: CONCLUSION: 1. Negative CT Head non contrast. Chest X-Ray 03/13/1826 Signed Impressions: CONCLUSION: Negative examination. Abdomen/Pelvis CT 03/13/18 0000 Signed Impressions: CONCLUSION: 1. Large amount of ascites otherwise unremarkable CT scan of the abdomen and p endy without contrast Abdomen Ultrasound 03/13/18 0000 Signed Impressions: CONCLUSION: 1. Moderate to large amount of ascites of approximately 4 to 5 Liters. Physical Exam HEENT: Normocephalic; atraumatic; (+) icterus CHEST: Even/unlabored CARDIAC: RRR ABDOMEN: Distended, soft, nontender, bowel sounds active EXTREMITIES:BLE edema. SKIN: (+) jaundice. WOOL TAMPER: Alert and oriented to person (Ava Santos) Assessment and Plan Plan Assessment: - End stage liver disease with portal hypertension and hepatorenal syndrome. Secondary to ETOH abuse- last ETOH was in November Referral to tertiary center has been difficult due to no insurance, pt was approved for Medicaid on March 03 and went to [facility] last Tuesday. Started work up for liver transplant at [facility], Dr. Rene Arias, liver transplant specialist and Dr. Miranda, bias machine operator helper. Pt had multiple labs drawn on Tuesday, on his way home was called by [facility] and told to return for admission due to hyperkalemia. Pt was admitted from til Tuesday. Per pts mother, Spironolactone dosage was decreased. - Confusion- pt acutely disoriented- he is awake and verbal but unsure of his own name- [id number] He is on Xifaxan and Lactulose Of note, reports of new antibiotic. Mother is unsure which one he is on. - Ascites- CT abdomen and pelvis (03/13) revealed large volume of ascites Paracentesis x 2 at [place]- Tuesday and Tuesday Pt on Spironolactone - Poor PO intake- pt has Dobhoff tube for feedings - Leukocytosis- chronic- previous bone marrow biopsy- followed by Dr. Hahn (03/14) Pt a little more oriented today, he can remember his own name and his mother. Per RN Dr. Brantley did not feel comfortable doing paracentesis because of recent paracentesis done on Tuesday. Per RN pt tolerated TF over night Records received from [facility] and on patients chart at nursing station Plan: Continue Xifaxan and Lactulose Feeding through Dobhoff Spironolactone Case management consult for possible transfer to [facility] Further recommendations based on clinical course Pt has been seen and examined by myself and Dr. Markham and this note is written on his behalf (Ava Santos) Physician Comments Seen and examined with REINIER, deeply icteric and encephalopathic. Urgent transfer requested to [facility]. Discussed case with Transplant scarfing machine operator Dr Miranda at [facility]. Mr العلي has recently seen Dr Miranda at [facility] last week. Care plan discussed with [facility]. They will get back to us regarding possibilty of transfer to [facility]. Mom and Dad apprised of the conversation with [facility] and are agreeable to transfer if possible. (Tamia Markham MD) Ava Santos Mar 14, 2018 13:17 Tamia Markham MD Mar 14, 2018 17:56
[2018-03-14 16:00] VITALS: BP 123/77; PULSE 106; RESP 16; TEMP 98; O2SAT 100
[2018-03-14] MEDS: cefTRIAXone INJ 1,000 MG in SODIUM CHLORIDE 0.9% INJ 100 ML IV SCH (17:30)
[2018-03-14 20:00] VITALS: BP 124/84; PULSE 112; RESP 18; TEMP 98.1; O2SAT 99
[2018-03-14 21:30] LABS: BICARBONATE 18.9 MEQ/L (21.0-32.0); CALCIUM 8.1 MG/DL (8.5-10.1); CREATININE 1.12 MG/DL (0.60-1.30)
[2018-03-15] VITALS: BP 119/77; PULSE 111; RESP 18; TEMP 98.1; O2SAT 99
[2018-03-15] MEDS: RIFAXIMIN 200 MG TAB PO SCH ×3 (05:22→21:37)
[2018-03-15] MEDS: MIDODRINE 5 MG TAB PO SCH ×3 (05:22→16:25)
[2018-03-15] MEDS: SODIUM BICARBONATE 650 MG TAB PO SCH ×3 (05:22→21:40)
[2018-03-15 07:47] LABS: ALBUMIN 2.6 GM/DL (3.4-5.0); ALT (GPT) 38 U/L (12-78); AST (GOT) 34 U/L (15-37); BICARBONATE 17.2 MEQ/L (21.0-32.0); BLOOD UREA NITROGEN 35 MG/DL (7-18); CALCIUM 7.8 MG/DL (8.5-10.1); CHLORIDE 110 MEQ/L (98-107); CREATININE 0.91 MG/DL (0.60-1.30); GLOMERULAR FILTRATION RATE 92 ML/MIN (>89); GLUCOSE,RANDOM 104 MG/DL (74-106); SODIUM (NA) 138 MEQ/L (136-145)
[2018-03-15 07:55] LABS: ALKALINE PHOSPHATASE 207 U/L (45-117); TOTAL BILIRUBIN ADULT 8.3 MG/DL (0.2-1.0); TOTAL PROTEIN 5.7 GM/DL (6.4-8.2)
[2018-03-15 08:00] VITALS: BP 117/77; PULSE 107; RESP 20; TEMP 97.7; O2SAT 100
[2018-03-15] MEDS: LACTULOSE SYRUP 20 GM/30 ML CUP PO SCH ×2 (08:58→21:37)
[2018-03-15] MEDS: CHOLESTYRAMINE 4 GM PACKET PO SCH ×3 (08:58→16:26)
[2018-03-15] MEDS: POTASSIUM CHLORIDE 20 MEQ PWD PACKET DOBHOFF SCH ×2 (08:58→21:00)
[2018-03-15] MEDS: DOCUSATE SODIUM 50 MG/SENNA 8.6 MG TAB PO SCH ×2 (08:59→21:38)
[2018-03-15] MEDS: SPIRONOLACTONE 100 MG TAB PO SCH (08:59)
[2018-03-15] MEDS ORDERED: THIAMINE HCL 100 MG TAB PO ONE (10:00)
[2018-03-15 12:00] VITALS: BP 133/86; PULSE 118; RESP 20; TEMP 99; O2SAT 100
[2018-03-15] MEDS: SODIUM CHLORIDE 0.9% FLUSH 10 ML FLUSH IV FLUSH SCH ×2 (12:14→21:43)
--- NOTE | 2018-03-15 12:39 | HHI.PR ---
Subjective Remarks patient says he is feeling well. Denies any chest pain shortness of breath. Denies nausea or vomiting. Patient was apparently confused yesterday and overnight, however this is improving. Objective Vital Signs Date Time Temp Pulse Resp B/P (MAP) Pulse Ox O2 Delivery O2 Flow Rate FiO2 03/15/18 08:00 97.7 107 20 117/77 (90) 100 03/15/18 00:00 98.1 111 18 119/77 (91) 99 03/14/18 20:00 98.1 112 18 124/84 (97) 99 03/14/18 16:00 98.0 106 16 123/77 (92) 100 I/O 03/14/18 03/14/18 03/14/18 03/15/18 03/15/18 03/15/18 06:59 14:59 22:59 06:59 14:59 22:59 Intake Total 480 ml 750 ml 1220 ml 120 ml Output Total 100 ml 275 ml 500 ml 175 ml Balance 380 ml 750 ml 945 ml -380 ml -175 ml Intake Oral 480 ml 120 ml 120 ml IV Total 1100 ml Tube Feeding 750 ml Output Urine Total 100 ml 275 ml 500 ml 175 ml Bladder Scan Volume Amount 721 ml 386 ml 344 ml 498 ml # Bowel Movements 2 1 0 Result Diagram: 03/14/18 0636 03/15/18 0619 Objective Remarks GENERAL: She is sitting up in bed. He is alert and oriented 4. SKIN: Warm and dry. HEAD: Normocephalic. EYES: No scleral icterus. No injection or drainage. NECK: Supple, trachea midline. No JVD. CARDIOVASCULAR: Regular rate and rhythm without murmurs, gallops, or rubs. RESPIRATORY: Breath sounds equal bilaterally. No accessory muscle use. GASTROINTESTINAL: Abdomen distended, nontender. Positive ascites. MUSCULOSKELETAL: No cyanosis. Trace anasarca. Left lower extremity anterior contreras abrasion. Dressed, no signs of infection. BACK: Nontender without obvious deformity. No CVA tenderness. A/P Assessment and Plan // End-stage liver disease/elevated bilirubin/hepatorenal syndrome //Ascites Patient undergoing evaluation for liver transplantation at [facility] consulted, appreciate assistance Continue home medications including rifaximin, lactulose, pentoxifylline>> we will hold the latter due to patient has been on it for 6 weeks, recommended 4 weeks = Kidney function stable. Start daily thiamine. Still significant ascites. IR did not want to do repeat paracentesis secondary to recent paracentesis on Tuesday. Continue ceftriaxone. Paracentesis ordered. //Persistent lactic acid elevation. Secondary to liver disease. Start thiamine. //Encephalopathy. Appears resolved. Off restraints. Head CT negative for acute process Ammonia level within normal limits // Chronic leukocytosis White blood cell count 44.3, patient with chronic leukocytosis Chest x-ray negative for acute process, personally reviewed Urine negative CT of the abdomen/pelvis noted as above = Workup for paracentesis as above. Leukocytosis however is chronic. //Non-anion gap metabolic acidosis. -Continue bicarb. Discharge Planning Pending GI clearance. Appreciate assistance. If paracentesis can be done, and patient feeling all right, can likely be discharged to follow-up with gastroenterology as outpatient Bryon Cordero MD Mar 15, 2018 12:39
--- NOTE | 2018-03-15 13:52 | HHI.GIFU ---
Subjective Remarks Pt more oriented today, able to identify himself, knows where he is, knows who his mother is Tolerating TF over night, vomited prior to my arrival, states it was from drinking a large amount of tea Some pain in his abdomen, planned for paracentesis today Objective Vitals I&O Vital Signs Date Time Temp Pulse Resp B/P (MAP) Pulse Ox O2 Delivery O2 Flow Rate FiO2 03/15/18 08:00 97.7 107 20 117/77 (90) 100 03/15/18 00:00 98.1 111 18 119/77 (91) 99 03/14/18 20:00 98.1 112 18 124/84 (97) 99 03/14/18 16:00 98.0 106 16 123/77 (92) 100 I/O 03/14/18 03/14/18 03/14/18 03/15/18 03/15/18 03/15/18 07:00 15:00 23:00 07:00 15:00 23:00 Intake Total 480 ml 750 ml 1220 ml 120 ml Output Total 100 ml 275 ml 500 ml 175 ml Balance 380 ml 750 ml 945 ml -380 ml -175 ml Intake Oral 480 ml 120 ml 120 ml IV Total 1100 ml Tube Feeding 750 ml Output Urine Total 100 ml 275 ml 500 ml 175 ml Bladder Scan Volume Amount 721 ml 386 ml 344 ml 498 ml # Bowel Movements 2 1 0 Laboratory Laboratory Tests Test 03/14/18 16:45 03/14/18 20:09 03/15/18 06:19 Erythrocyte Sedimentation Rate 20 Blood Urea Nitrogen 38 35 Creatinine 1.12 0.91 Random Glucose 95 104 Calcium Level 8.1 7.8 Sodium Level 136 138 Potassium Level 4.7 4.5 Chloride Level 107 110 Carbon Dioxide Level 18.9 17.2 Anion Gap 10 11 Estimat Glomerular Filtration Rate 73 92 Total Protein 5.7 Albumin 2.6 Alkaline Phosphatase 207 Aspartate Amino Transf (AST/SGOT) 34 Alanine Aminotransferase (ALT/SGPT) 38 Total Bilirubin 8.3 Date/Time Source Procedure Growth Status 03/13/18 01:50 Blood Peripheral Aerobic Blood Culture - Preliminary NO GROWTH IN 2 DAYS Resulted 03/13/18 01:50 Blood Peripheral Anaerobic Blood Culture - Preliminary NO GROWTH IN 2 DAYS Resulted Imaging Last Impressions Head CT 03/13/18 0027 Signed Impressions: CONCLUSION: 1. Negative CT Head non contrast. Chest X-Ray 03/13/18 0027 Signed Impressions: CONCLUSION: Negative examination. Abdomen/Pelvis CT 03/13/18 0000 Signed Impressions: CONCLUSION: 1. Large amount of ascites otherwise unremarkable CT scan of the abdomen and p endy without contrast Abdomen Ultrasound 03/13/18 0000 Signed Impressions: CONCLUSION: 1. Moderate to large amount of ascites of approximately 4 to 5 Liters. Physical Exam HEENT: Normocephalic; atraumatic; (+) icterus CHEST: Even/unlabored CARDIAC: RRR ABDOMEN: Distended, soft, nontender, bowel sounds active EXTREMITIES:BLE edema. SKIN: (+) jaundice. COMBINATION MACHINE TOOL OPERATOR: Alert and oriented to person and place Assessment and Plan Plan Assessment: - End stage liver disease with portal hypertension and hepatorenal syndrome. Secondary to ETOH abuse- last ETOH was in November Referral to tertiary center has been difficult due to no insurance, pt was approved for Medicaid on March 03 and went to [facility] last Tuesday. Started work up for liver transplant at [facility], Dr. Rene Arias, liver transplant specialist and Dr. Sanotyo, film painter. Pt had multiple labs drawn on Tuesday, on his way home was called by [facility] and told to return for admission due to hyperkalemia. Pt was admitted from til Tuesday. Per pts mother, Spironolactone dosage was decreased. - Confusion- pt acutely disoriented- he is awake and verbal but unsure of his own name- [id number] He is on Xifaxan and Lactulose Of note, reports of new antibiotic. Mother is unsure which one he is on. - Ascites- CT abdomen and pelvis (03/13) revealed large volume of ascites Paracentesis x 2 at [place]- Tuesday and Tuesday Pt on Spironolactone - Poor PO intake- pt has Dobhoff tube for feedings - Leukocytosis- chronic- previous bone marrow biopsy- followed by Dr. Hahn (03/14) Pt a little more oriented today, he can remember his own name and his mother. Per RN Dr. Brantley did not feel comfortable doing paracentesis because of recent paracentesis done on Tuesday. Per RN pt tolerated TF over night Records received from [facility] and on patients chart at nursing station (03/15) Pt more oriented today, able to identify his mother and himself. Dr. Markham discussed case with Dr. santoyo from [facility] who is reviewing his case and will notify us if transfer to [facility] is approved. Pt planned for paracentesis today. Plan: Continue Xifaxan and Lactulose Feeding through Dobhoff Spironolactone Awaiting Dr. santoyo, [facility] decision regarding transfer Further recommendations based on clinical course Pt has been seen and examined by myself and Dr. Delgado and this note is written on her behalf Ava Santos Mar 15, 2018 13:52
[2018-03-15 14:20] VITALS: BP 121/92; PULSE 120; RESP 20; TEMP 100.9; O2SAT 98
[2018-03-15] MEDS ORDERED: LIDOCAINE HCL 1% PF 30 ML VIAL ONE (14:41)
[2018-03-15] MEDS ORDERED: ALBUMIN 25% INJ 0 ML IV ONE (14:45)
[2018-03-15 16:00] VITALS: BP 128/84; PULSE 115; RESP 18; TEMP 98.1; O2SAT 100
[2018-03-15] MEDS: cefTRIAXone INJ 1,000 MG in SODIUM CHLORIDE 0.9% INJ 100 ML IV SCH (16:26)
[2018-03-15 16:27] LABS: PERITONEAL LYMPHS 23 %; PERITONEAL MESOTHELIAL 36 %; PERITONEAL MONOS 23 %; PERITONEAL POLYS(SEGS) 18 %; PERITONEAL RBC 196 /MM3 (0-0)
[2018-03-15] MEDS ORDERED: ALBUMIN 25% INJ 100 ML IV ONE ×2 (19:15)
[2018-03-15 20:00] VITALS: BP 124/76; PULSE 116; RESP 20; TEMP 98.3; O2SAT 96
[2018-03-15] MEDS: hydrOXYzine HCL 50 MG TAB PO PRN (21:40)
[2018-03-15 22:01] LABS: INTERNATIONAL NORMALIZED RATIO 1.6 RATIO; PROTHROMBIN TIME - PATIENT 16.1 SEC (9.8-11.6)
[2018-03-16] VITALS: BP 125/65; PULSE 112; RESP 20; TEMP 98.4; O2SAT 98
[2018-03-16] MEDS: RIFAXIMIN 200 MG TAB PO SCH ×3 (05:18→21:58)
[2018-03-16] MEDS: MIDODRINE 5 MG TAB PO SCH ×3 (05:18→16:41)
[2018-03-16] MEDS: SODIUM BICARBONATE 650 MG TAB PO SCH ×3 (05:19→21:57)
[2018-03-16 08:00] VITALS: BP 126/60; PULSE 114; RESP 16; TEMP 97.6; O2SAT 96
[2018-03-16] MEDS: CHOLESTYRAMINE 4 GM PACKET PO SCH ×3 (09:28→16:41)
[2018-03-16] MEDS: LACTULOSE SYRUP 20 GM/30 ML CUP PO SCH ×2 (09:28→21:58)
[2018-03-16] MEDS: THIAMINE HCL 100 MG TAB PO SCH (09:29)
[2018-03-16] MEDS: SPIRONOLACTONE 100 MG TAB PO SCH (09:29)
[2018-03-16] MEDS: DOCUSATE SODIUM 50 MG/SENNA 8.6 MG TAB PO SCH ×2 (09:30→21:00)
[2018-03-16] MEDS: SODIUM CHLORIDE 0.9% FLUSH 10 ML FLUSH IV FLUSH SCH ×2 (09:30→21:58)
[2018-03-16] MEDS: POTASSIUM CHLORIDE 20 MEQ PWD PACKET DOBHOFF SCH ×2 (09:32→21:00)
[2018-03-16 10:15] LABS: AUTOMATED NEUTROPHIL # 22.3 TH/MM3 (1.8-7.7); BASOPHIL # 0.2 TH/MM3 (0-0.2); BASOPHIL % 0.7 % (0.0-2.0); EOSINOPHIL # 0.6 TH/MM3 (0-0.4); HEMATOCRIT 23.9 % (39.0-51.0); LYMPH % 9.2 % (9.0-44.0); LYMPHOCYTE # 2.7 TH/MM3 (1.0-4.8); MEAN CELL VOLUME 98.4 FL (80.0-100.0); MEAN CORPUSCULAR HEMOGLOBIN 32.9 PG (27.0-34.0); MEAN CORPUSCULAR HGB CONC 33.4 % (32.0-36.0); MEAN PLATELET VOLUME 8.7 FL (7.0-11.0); MONO % 10.5 % (0.0-8.0); NEUT % 77.6 % (16.0-70.0); PLATELET COUNT 261 TH/MM3 (150-450); RED BLOOD COUNT 2.43 MIL/MM3 (4.50-5.90); RED CELL DISTRIBUTION WIDTH 15.9 % (11.6-17.2); WHITE BLOOD COUNT 28.8 TH/MM3 (4.0-11.0)
[2018-03-16 10:49] LABS: BICARBONATE 14.8 MEQ/L (21.0-32.0); CALCIUM 8.1 MG/DL (8.5-10.1); CREATININE 0.79 MG/DL (0.60-1.30); DIRECT BILIRUBIN ADULT 5.1 MG/DL (0.0-0.2); MAGNESIUM 2.2 MG/DL (1.5-2.5); PHOSPHORUS 3.4 MG/DL (2.5-4.9); TOTAL BILIRUBIN ADULT 7.1 MG/DL (0.2-1.0); TOTAL PROTEIN 5.6 GM/DL (6.4-8.2)
--- NOTE | 2018-03-16 10:53 | HHI.PR ---
Subjective Remarks Patient says he is feeling well. Denies any chest pain or shortness of breath. Denies nausea or vomiting. He reports discomfort in lower abdomen, says this is better than yesterday (although did not report yesterday). Objective Vital Signs Date Time Temp Pulse Resp B/P (MAP) Pulse Ox O2 Delivery O2 Flow Rate FiO2 03/16/18 08:00 97.6 114 16 126/60 (82) 96 03/16/18 00:00 98.4 112 20 125/65 (85) 98 03/15/18 20:00 98.3 116 20 124/76 (92) 96 03/15/18 16:00 98.1 115 18 128/84 (99) 100 03/15/18 14:20 100.9 120 20 121/92 (102) 98 03/15/18 12:00 99.0 118 20 133/86 (102) 100 I/O 03/15/18 03/15/18 03/15/18 03/16/18 03/16/18 03/16/18 07:00 15:00 23:00 07:00 15:00 23:00 Intake Total 120 ml 900 ml 300 ml Output Total 500 ml 175 ml 600 ml Balance -380 ml -175 ml 900 ml -300 ml Intake Oral 120 ml 800 ml IV Total 100 ml 300 ml Output Urine Total 500 ml 175 ml 600 ml Bladder Scan Volume Amount 498 ml # Bowel Movements 0 0 Result Diagram: 03/16/1818 03/15/18 0619 Objective Remarks GENERAL: he is sitting up in bed. He is alert and oriented 4. SKIN: Warm and dry. HEAD: Normocephalic. EYES: No scleral icterus. No injection or drainage. NECK: Supple, trachea midline. No JVD. CARDIOVASCULAR: Regular rate and rhythm without murmurs, gallops, or rubs. RESPIRATORY: Breath sounds equal bilaterally. No accessory muscle use. GASTROINTESTINAL: Abdomen less distended today. Nontender. MUSCULOSKELETAL: No cyanosis. Trace anasarca. Left lower extremity anterior contreras abrasion. Dressed, no signs of infection. Stage I sacral ulcer BACK: Nontender without obvious deformity. No CVA tenderness. A/P Assessment and Plan // End-stage liver disease/elevated bilirubin/hepatorenal syndrome //Ascites Patient undergoing evaluation for liver transplantation at [facility] consulted, appreciate assistance Continue home medications including rifaximin, lactulose, pentoxifylline>> we will hold the latter due to patient has been on it for 6 weeks, recommended 4 weeks = Kidney function stable. Start daily thiamine. Still significant ascites. IR did not want to do repeat paracentesis secondary to recent paracentesis on Tuesday. Continue ceftriaxone. Paracentesis ordered. = Abdominal distention improved after paracentesis. Fluid does not appear infected, however has been on antibiotics. ID consult pending as patient did have fever 100.9 yesterday. //Persistent lactic acid elevation. Secondary to liver disease. Start thiamine. //Encephalopathy. Appears resolved. Off restraints. Head CT negative for acute process Ammonia level within normal limits // Chronic leukocytosis White blood cell count 44.3, patient with chronic leukocytosis Chest x-ray negative for acute process, personally reviewed Urine negative CT of the abdomen/pelvis noted as above = Workup for paracentesis as above. Leukocytosis however is chronic. //Non-anion gap metabolic acidosis. -Bicarb 14.8. no gap. Continue bicarb. Discharge Planning Pending GI clearance. Appreciate assistance. Bryon Cordero MD Mar 16, 2018 10:52
[2018-03-16 11:18] LABS: BANDS 4 % (0-6); BASOPHILS 2 % (0-2); LYMPHOCYTES 7 % (9-44); MONOCYTES 7 % (0-8); MYELOCYTES 2 % (0-0); NEUTROPHIL # MANUAL DIFF 23.9 TH/MM3 (1.8-7.7); POLYS (SEG NEUTROPHILS) 77 % (16-70)
[2018-03-16 11:19] LABS: ACANTHOCYTES 1+ (NORMAL)
[2018-03-16 12:00] VITALS: BP 109/69; PULSE 102; RESP 16; TEMP 98.5; O2SAT 99
--- NOTE | 2018-03-16 13:15 | MB ---
cc: Cj Kaplan MD DATE: 03/16/2018 REQUESTING PHYSICIAN: Dr. Cordero. REASON: Possible SBP. HISTORY OF PRESENT ILLNESS: This is a 38-year-old white male who has end-stage liver disease. The patient was brought to the emergency department with altered mental status on 03/12/2018. The patient had slipped and fell in his bathtub 2 days before presenting to the emergency department. He subsequently was gradually worsening with difficulty with mentation and eventually was brought to the emergency department for evaluation. When he fell in the bathtub he developed a laceration of the left contreras. He was evaluated in the emergency department when he brought in and had a heart rate of 124 and a white count of 44.3 and elevated total bilirubin of 11.6. He denies chills, headache or nausea. He notes mild pain at the lower abdomen. He underwent paracentesis and the fluid revealed 155 white cells, 196 red cells, 18% neutrophils, 23% lymphocytes, 23% monocytes, 36% mesothelial cells. Blood cultures were taken and have no growth. Peritoneal fluid culture is pending. The fluid showed no white cells and no organisms on Gram stain. The patient states that he feels better now. He feels stronger. He is awake and alert. His father is at bedside. He had a temperature max of 100.9 degrees yesterday afternoon. Prior to that, his temperature was normal. The white blood cell count has decreased some and today it is 28.8. PAST MEDICAL HISTORY: End-stage liver disease and the patient is being evaluated for liver transplantation, hepatorenal syndrome, alcohol abuse, chronic leukocytosis. ALLERGIES: NO KNOWN DRUG ALLERGIES. MEDICATIONS: 1. Ceftriaxone. 2. Potassium. 3. Katie-Colace. 4. Lactulose. 5. Aldactone. 6. Questran. 7. ProAmatine. 8. Rifaximin. 9. Atarax. 10. Oxycodone. SOCIAL HISTORY: No tobacco, no alcohol. Prior history of heavy alcohol use. No illicit drugs. FAMILY HISTORY: Noncontributory. REVIEW OF SYSTEMS: Pertinent as mentioned above in History Of Present Illness. Besides lower abdominal pain and generalized weakness, negative 10-point review. PHYSICAL EXAMINATION: GENERAL: Well-developed male who is in no acute distress. He looks chronically ill. VITAL SIGNS: Temperature 97.6, BP 126/60, respirations 18, heart rate 114. HEENT: Head atraumatic. Extraocular movements grossly intact. Extraocular movements grossly intact. Positive icterus. No conjunctival erythema. Oropharynx: Slightly dry mucosa. NECK: Supple without adenopathy. LUNGS: Bilateral slight rhonchi at the bases. HEART: Regular S1, S2 with a slight systolic murmur at the left sternal border. ABDOMEN: Distended. Soft, no tenderness appreciated. RECTAL: Not performed. EXTREMITIES: No clubbing, cyanosis or edema. SKIN: Positive jaundice. No rash. NEUROLOGIC: No gross focal finding. PSYCHIATRIC: The patient is calm and cooperative. LABORATORY DATA: WBC 28.8, platelets 261, hemoglobin 8.0, 77% neutrophils, 4% bands, 7% lymphocytes, 1% eosinophils. Creatinine 0.79, BUN 31, sodium 133, AST 34, ALT 36, total bilirubin 7.1. IMAGING STUDIES: CT scan of the head revealed no abnormality. CT scan of the abdomen showed a large amount of ascites. On 03/13/2018, chest x-ray was negative. IMPRESSION: 1. Leukocytosis, likely reactive in a patient who has end-stage liver disease. 2. End-stage liver disease, status post paracentesis for ascites. The ascitic fluid does not reflect infection. However, a culture is pending. The patient had a low-grade fever and elevated white blood cell count, which could be related to infection as well. RECOMMENDATIONS: 1. Continue ceftriaxone. 2. Monitor the fluid culture. 3. Monitor white blood cell count. 4. Monitor temperature and clinical status. Thank you for this consultation. I will follow the patient's progress along with you and will make further recommendations and followup as necessary. MD MAYELIN Burrell/DAVID , 12:30 PM , 01:13 PM
--- NOTE | 2018-03-16 15:18 | HHI.GIFU ---
Subjective Remarks Pt resting in bed, oriented today Feels somewhat better after paracentesis yesterday Mother at bedside tearful (Ava Santos) Objective Vitals I&O Vital Signs Date Time Temp Pulse Resp B/P (MAP) Pulse Ox O2 Delivery O2 Flow Rate FiO2 03/16/18 12:00 98.5 102 16 109/69 (82) 99 03/16/18 10:29 18 03/16/18 08:00 97.6 114 16 126/60 (82) 96 03/16/18 00:00 98.4 112 20 125/65 (85) 98 03/15/18 20:00 98.3 116 20 124/76 (92) 96 03/15/18 16:00 98.1 115 18 128/84 (99) 100 I/O 03/15/18 03/15/18 03/15/18 03/16/18 03/16/18 03/16/18 07:00 15:00 23:00 07:00 15:00 23:00 Intake Total 120 ml 900 ml 300 ml Output Total 500 ml 175 ml 600 ml Balance -380 ml -175 ml 900 ml -300 ml Intake Oral 120 ml 800 ml IV Total 100 ml 300 ml Output Urine Total 500 ml 175 ml 600 ml Bladder Scan Volume Amount 498 ml # Bowel Movements 0 0 Laboratory Laboratory Tests Test 03/15/18 21:27 03/16/18 09:18 Prothrombin Time 16.1 Prothromb Time International Ratio 1.6 White Blood Count 28.8 Red Blood Count 2.43 Hemoglobin 8.0 Hematocrit 23.9 Mean Corpuscular Volume 98.4 Mean Corpuscular Hemoglobin 32.9 Mean Corpuscular Hemoglobin Concent 33.4 Red Cell Distribution Width 15.9 Platelet Count 261 Mean Platelet Volume 8.7 Neutrophils (%) (Auto) 77.6 Lymphocytes (%) (Auto) 9.2 Monocytes (%) (Auto) 10.5 Eosinophils (%) (Auto) 2.0 Basophils (%) (Auto) 0.7 Neutrophils # (Auto) 22.3 Lymphocytes # (Auto) 2.7 Monocytes # (Auto) 3.0 Eosinophils # (Auto) 0.6 Basophils # (Auto) 0.2 CBC Comment AUTO DIFF Differential Total Cells Counted 100 Neutrophils % (Manual) 77 Band Neutrophils % 4 Lymphocytes % 7 Monocytes % 7 Eosinophils % 1 Basophils % 2 Neutrophils # (Manual) 23.9 Myelocytes 2 Differential Comment FINAL DIFF MANUAL Platelet Estimate NORMAL Platelet Morphology Comment NORMAL Acanthocytes 1+ Blood Urea Nitrogen 31 Creatinine 0.79 Random Glucose 119 Total Protein 5.6 Albumin 3.0 Calcium Level 8.1 Phosphorus Level 3.4 Magnesium Level 2.2 Alkaline Phosphatase 151 Aspartate Amino Transf (AST/SGOT) 34 Alanine Aminotransferase (ALT/SGPT) 36 Total Bilirubin 7.1 Direct Bilirubin 5.1 Sodium Level 133 Potassium Level 4.9 Chloride Level 106 Carbon Dioxide Level 14.8 Anion Gap 12 Estimat Glomerular Filtration Rate 109 Indirect Bilirubin 2.0 Date/Time Source Procedure Growth Status 03/13/18 01:50 Blood Peripheral Aerobic Blood Culture - Preliminary NO GROWTH IN 3 DAYS Resulted 03/13/18 01:50 Blood Peripheral Anaerobic Blood Culture - Preliminary NO GROWTH IN 3 DAYS Resulted 03/15/18 14:40 Fluid Peritoneal Fluid Gram Stain - Final Resulted 03/15/18 14:40 Fluid Peritoneal Fluid Body Fluid Culture - Preliminary NO GROWTH IN 24 HOURS. Resulted Imaging Last Impressions Head CT 03/13/1826 Signed Impressions: CONCLUSION: 1. Negative CT Head non contrast. Chest X-Ray 03/13/1826 Signed Impressions: CONCLUSION: Negative examination. Abdomen/Pelvis CT 03/13/18 0000 Signed Impressions: CONCLUSION: 1. Large amount of ascites otherwise unremarkable CT scan of the abdomen and p endy without contrast Abdomen Ultrasound 03/13/18 0000 Signed Impressions: CONCLUSION: 1. Moderate to large amount of ascites of approximately 4 to 5 Liters. Physical Exam HEENT: Normocephalic; atraumatic; (+) icterus CHEST: Even/unlabored CARDIAC: RRR ABDOMEN: Distended, soft, nontender, bowel sounds active EXTREMITIES:BLE edema. SKIN: (+) jaundice. FINISH ROLLS OPERATOR: Alert and oriented x 3 (Ava Santos) Assessment and Plan Plan Assessment: - End stage liver disease with portal hypertension and hepatorenal syndrome. Secondary to ETOH abuse- last ETOH was in November Referral to tertiary center has been difficult due to no insurance, pt was approved for Medicaid on March 03 and went to [facility] last Tuesday. Started work up for liver transplant at [facility], Dr. Rene Arias, liver transplant specialist and Dr. Santoyo, flame hardening machine setter. Pt had multiple labs drawn on Tuesday, on his way home was called by [facility] and told to return for admission due to hyperkalemia. Pt was admitted from til Tuesday. Per pts mother, Spironolactone dosage was decreased. - Confusion- pt acutely disoriented- he is awake and verbal but unsure of his own name- [id number] He is on Xifaxan and Lactulose Of note, reports of new antibiotic. Mother is unsure which one he is on. - Ascites- CT abdomen and pelvis (03/13) revealed large volume of ascites Paracentesis x 2 at [place]- Tuesday and Tuesday Pt on Spironolactone - Poor PO intake- pt has Dobhoff tube for feedings - Leukocytosis- chronic- previous bone marrow biopsy- followed by Dr. Hahn (03/14) Pt a little more oriented today, he can remember his own name and his mother. Per RN Dr. Brantley did not feel comfortable doing paracentesis because of recent paracentesis done on Tuesday. Per RN pt tolerated TF over night Records received from [facility] and on patients chart at nursing station (03/15) Pt more oriented today, able to identify his mother and himself. Dr. Markham discussed case with Dr. santoyo from [facility] who is reviewing his case and will notify us if transfer to [facility] is approved. Pt planned for paracentesis today. (03/16) Pt declined transfer to [facility] and [facility]. Working on contacting [facility]. Pt more oriented today. Also reports feeling somewhat better after paracentesis yesterday. Plan: Continue Xifaxan and Lactulose Feeding through Dobhoff Spironolactone Case management working on contacting [facility] Further recommendations based on course Pt has been seen and examined by myself and Dr. Delgado and this note is written on her behalf (Ava Santos) Physician Comments seen, examined agree with above [facility] contacted also-agree with [facility] -not a candidate at this point-will need 6 month of etoh abstinence before being considered for liver transplant , also will need to join a detox program or aaa discussed with parents and patient we will make a referral to another tertiary center op once dc fu office 1-2 weeks if stable ok to dc home in 1-2 days (Liseth Delgado MD) Ava Santos Mar 16, 2018 15:18 Liseth Delgado MD Mar 16, 2018 17:13
[2018-03-16 16:00] VITALS: BP 114/77; PULSE 108; RESP 17; TEMP 97.8; O2SAT 100
[2018-03-16] MEDS: cefTRIAXone INJ 1,000 MG in SODIUM CHLORIDE 0.9% INJ 100 ML IV SCH (16:40)
[2018-03-16] MEDS: hydrOXYzine HCL 50 MG TAB PO PRN (16:41)
[2018-03-16 20:00] VITALS: BP 125/86; PULSE 108; RESP 20; TEMP 97.5; O2SAT 99
[2018-03-17] VITALS: BP 129/78; PULSE 111; RESP 20; TEMP 98.3; O2SAT 99
[2018-03-17] MEDS: hydrOXYzine HCL 50 MG TAB PO PRN ×3 (01:01→21:27)
[2018-03-17] MEDS: RIFAXIMIN 200 MG TAB PO SCH ×3 (05:16→21:27)
[2018-03-17] MEDS: MIDODRINE 5 MG TAB PO SCH ×3 (05:16→17:17)
[2018-03-17] MEDS: SODIUM BICARBONATE 650 MG TAB PO SCH ×3 (05:16→21:28)
[2018-03-17 08:00] VITALS: BP 108/69; PULSE 112; RESP 18; TEMP 98.5; O2SAT 99
[2018-03-17 08:04] LABS: AUTOMATED NEUTROPHIL # 23.2 TH/MM3 (1.8-7.7); BASOPHIL # 0.2 TH/MM3 (0-0.2); BASOPHIL % 0.8 % (0.0-2.0); EOSINOPHIL # 0.8 TH/MM3 (0-0.4); EOSINOPHIL % 2.9 % (0.0-4.0); HEMATOCRIT 24.9 % (39.0-51.0); HEMOGLOBIN 8.3 GM/DL (13.0-17.0); LYMPHOCYTE # 2.1 TH/MM3 (1.0-4.8); MEAN CELL VOLUME 97.6 FL (80.0-100.0); MEAN CORPUSCULAR HEMOGLOBIN 32.6 PG (27.0-34.0); MEAN CORPUSCULAR HGB CONC 33.3 % (32.0-36.0); MEAN PLATELET VOLUME 8.7 FL (7.0-11.0); MONO % 10.3 % (0.0-8.0); PLATELET COUNT 263 TH/MM3 (150-450); RED BLOOD COUNT 2.55 MIL/MM3 (4.50-5.90); RED CELL DISTRIBUTION WIDTH 15.7 % (11.6-17.2); WHITE BLOOD COUNT 29.3 TH/MM3 (4.0-11.0)
[2018-03-17 08:35] LABS: ALBUMIN 2.7 GM/DL (3.4-5.0); BICARBONATE 16.2 MEQ/L (21.0-32.0); CALCIUM 7.8 MG/DL (8.5-10.1); CREATININE 0.8 MG/DL (0.60-1.30); MAGNESIUM 2.2 MG/DL (1.5-2.5)
[2018-03-17 08:36] LABS: PHOSPHORUS 3.7 MG/DL (2.5-4.9)
[2018-03-17] MEDS: LACTULOSE SYRUP 20 GM/30 ML CUP PO SCH ×2 (08:50→21:28)
[2018-03-17] MEDS: SPIRONOLACTONE 100 MG TAB PO SCH (08:52)
[2018-03-17] MEDS: THIAMINE HCL 100 MG TAB PO SCH (08:52)
[2018-03-17] MEDS: CHOLESTYRAMINE 4 GM PACKET PO SCH ×3 (08:53→17:17)
[2018-03-17] MEDS: DOCUSATE SODIUM 50 MG/SENNA 8.6 MG TAB PO SCH ×2 (08:53→21:27)
[2018-03-17] MEDS: SODIUM CHLORIDE 0.9% FLUSH 10 ML FLUSH IV FLUSH SCH ×2 (08:56→21:28)
[2018-03-17] MEDS ORDERED: SODIUM POLYSTYRENE SULFONATE SUSP 15 GM/60 ML CUP PO ONE (09:00)
--- NOTE | 2018-03-17 09:35 | HHI.PR ---
Subjective Remarks Patient says he is feeling well. Says he is not sure if he can go home or if he needs to go to rehab. Waiting for his parents arrived. He denies any chest pain or shortness of breath. Reports abdominal pain is about the same Objective Vital Signs Date Time Temp Pulse Resp B/P (MAP) Pulse Ox O2 Delivery O2 Flow Rate FiO2 03/17/18 08:00 98.5 112 18 108/69 (82) 99 03/17/18 00:00 98.3 111 20 129/78 (95) 99 03/16/18 20:00 97.5 108 20 125/86 (99) 99 03/16/18 18:28 18 03/16/18 16:00 97.8 108 17 114/77 (89) 100 03/16/18 12:00 98.5 102 16 109/69 (82) 99 I/O 03/16/18 03/16/18 03/16/18 03/17/18 03/17/18 03/17/18 07:00 15:00 23:00 07:00 15:00 23:00 Intake Total 300 ml 500 ml Output Total 600 ml 800 ml 300 ml Balance -300 ml -300 ml -300 ml Intake Oral 400 ml IV Total 300 ml 100 ml Output Urine Total 600 ml 800 ml 300 ml Bladder Scan Volume Amount 498 ml 498 ml # Bowel Movements 1 Result Diagram: 03/17/18 0717 03/17/18 0717 Objective Remarks GENERAL: he is sitting up in bed. He is alert and oriented 4. Exam unchanged. SKIN: Warm and dry. HEAD: Normocephalic. EYES: No scleral icterus. No injection or drainage. NECK: Supple, trachea midline. No JVD. CARDIOVASCULAR: Regular rate and rhythm without murmurs, gallops, or rubs. RESPIRATORY: Breath sounds equal bilaterally. No accessory muscle use. GASTROINTESTINAL: Abdomen less distended today. Nontender. MUSCULOSKELETAL: No cyanosis. Trace anasarca. Left lower extremity anterior contreras abrasion. Dressed, no signs of infection. Stage I sacral ulcer BACK: Nontender without obvious deformity. No CVA tenderness. A/P Assessment and Plan // End-stage liver disease/elevated bilirubin/hepatorenal syndrome //Ascites Patient undergoing evaluation for liver transplantation at [facility] consulted, appreciate assistance Continue home medications including rifaximin, lactulose, pentoxifylline>> we will hold the latter due to patient has been on it for 6 weeks, recommended 4 weeks = Kidney function stable. Start daily thiamine. Still significant ascites. IR did not want to do repeat paracentesis secondary to recent paracentesis on Tuesday. Continue ceftriaxone. Paracentesis ordered. = Abdominal distention improved after paracentesis. Fluid does not appear infected, however has been on antibiotics. = ID assistance appreciated. Continues on antibiotics for SBP. Peritoneal cultures negative for growth however this is done well after starting IV antibiotics. Will discuss with ID whether patient can go on by mouth antibiotics //Persistent lactic acid elevation. Secondary to liver disease. Start thiamine. //Encephalopathy. Appears resolved. Off restraints. Head CT negative for acute process Ammonia level within normal limits // Chronic leukocytosis White blood cell count 44.3, patient with chronic leukocytosis Chest x-ray negative for acute process, personally reviewed Urine negative CT of the abdomen/pelvis noted as above = Workup for paracentesis as above. Leukocytosis however is chronic. //Hyperkalemia. Potassium 5.4. Kayexalate ordered. Discontinue scheduled replacement. Will decrease outpatient dose. //Non-anion gap metabolic acidosis. -Bicarb 14.8. no gap. Continue bicarb. Discharge Planning Pending GI clearance. Pending ID clearance PT recommends home health with parents versus rehab. Bryon Cordero MD Mar 17, 2018 09:35
[2018-03-17] MEDS ORDERED: CIPR500T2 PO (11:05)
[2018-03-17] MEDS ORDERED: POTA10CA PO (11:05)
--- NOTE | 2018-03-17 11:07 | HHI.FF ---
Face to Face Verification Diagnosis: (1) End-stage liver disease Physical Therapy Order: Evaluate and Treat Home Health Nursing Order: Wound care and dressing changes Nursing assessment with vital signs Instructions: Left lower extremity as per wound care recommendations. Care to sacral ulcer as per wound care recommendations. Arc Cutter Order: To Provide: Long range planning I have seen patient Ihsan العلي on 03/17/18. My clinical findings support the need for the requested home health care services because: Limited ability to care for self I certify that my clinical findings support that this patient is homebound because: Unsafe to leave home unassisted Bryon Cordero MD Mar 17, 2018 11:07
[2018-03-17 12:00] VITALS: BP 114/74; PULSE 118; RESP 19; TEMP 98.7; O2SAT 100
--- NOTE | 2018-03-17 12:27 | RADRPT ---
EXAM DATE: 03/15/2018 3:20 PM EDT AGE/SEX: 38 years / Male INDICATIONS: Ascites. CLINICAL DATA: This is the patient's subsequent encounter. Patient reports that signs and symptoms h ave been present for 3 days and indicates a pain score of 0/10. MEDICAL/SURGICAL HISTORY: . End stage liver disease. ETOH. Cirrhosis. Renal disease. . Paracen tesis. COMPARISON: [facility] [place] GUIDED ABD PARACENTESIS, 02/24/2018. . FLUID: Total volume of 7400 cc of clear, yellow fluid was removed. Fluid was sent to lab for ordered studies . . . TECHNIQUE: Ultrasound guidance for abdominal paracentesis. Paracentesis. The risks, benefits, and alternatives to ultrasound guided paracentesis were explained to the patient in detail including the risk of bleeding and infection. Written and verbal informed consent was obt ained. With the patient on the ultrasound table, ultrasound imaging was used to select the most appropriate approach for paracentesis. Overlying skin was prepped and draped in the usual sterile fashion and wi th a local anesthetic, a dermatotomy was made with an 11 blade scalpel. A 6 [place] Saf-T -centesis c atheter was introduced into the peritoneal cavity and fluid was collected. Post procedure scanning reveals no hematoma or other complication. The patient tolerated the procedu re well and left the ultrasound suite in stable condition. CONCLUSION: Uncomplicated ultrasound-guided paracentesis. Patient received albumin per protocol. Electronically signed by: Roly Brantley MD 03/17/2018 12:25 PM EDT
[2018-03-17] MEDS: ONDANSETRON ODT 4 MG TAB PO PRN (13:44)
--- NOTE | 2018-03-17 15:47 | HHI.GIFU ---
Subjective Remarks Patient is resting in the bed week but does respond to some verbal stimuli Occasional bouts of nausea off and known but no vomiting States he is trying to eat and is getting tube feeds at night Dobbhoff feeding tube intact Tachycardic heart rate 118 regular Currently denies any abdominal pain Objective Vitals I&O Vital Signs Date Time Temp Pulse Resp B/P (MAP) Pulse Ox O2 Delivery O2 Flow Rate FiO2 03/17/18 12:00 98.7 118 19 114/74 (87) 100 03/17/18 08:00 98.5 112 18 108/69 (82) 99 03/17/18 00:00 98.3 111 20 129/78 (95) 99 03/16/18 20:00 97.5 108 20 125/86 (99) 99 03/16/18 18:28 18 03/16/18 16:00 97.8 108 17 114/77 (89) 100 I/O 03/16/18 03/16/18 03/16/18 03/17/18 03/17/18 03/17/18 07:00 15:00 23:00 07:00 15:00 23:00 Intake Total 300 ml 500 ml Output Total 600 ml 800 ml 300 ml Balance -300 ml -300 ml -300 ml Intake Oral 400 ml IV Total 300 ml 100 ml Output Urine Total 600 ml 800 ml 300 ml Bladder Scan Volume Amount 498 ml 498 ml 498 ml # Bowel Movements 1 Laboratory Laboratory Tests Test 03/17/18 07:17 White Blood Count 29.3 Red Blood Count 2.55 Hemoglobin 8.3 Hematocrit 24.9 Mean Corpuscular Volume 97.6 Mean Corpuscular Hemoglobin 32.6 Mean Corpuscular Hemoglobin Concent 33.3 Red Cell Distribution Width 15.7 Platelet Count 263 Mean Platelet Volume 8.7 Neutrophils (%) (Auto) 79.0 Lymphocytes (%) (Auto) 7.0 Monocytes (%) (Auto) 10.3 Eosinophils (%) (Auto) 2.9 Basophils (%) (Auto) 0.8 Neutrophils # (Auto) 23.2 Lymphocytes # (Auto) 2.1 Monocytes # (Auto) 3.0 Eosinophils # (Auto) 0.8 Basophils # (Auto) 0.2 CBC Comment AUTO DIFF Differential Comment AUTO DIFF CONFIRMED Blood Urea Nitrogen 29 Creatinine 0.80 Random Glucose 162 Albumin 2.7 Calcium Level 7.8 Phosphorus Level 3.7 Magnesium Level 2.2 Sodium Level 134 Potassium Level 5.4 Chloride Level 108 Carbon Dioxide Level 16.2 Anion Gap 10 Estimat Glomerular Filtration Rate 107 Date/Time Source Procedure Growth Status 03/13/18 01:50 Blood Peripheral Aerobic Blood Culture - Preliminary NO GROWTH IN 4 DAYS Resulted 03/13/18 01:50 Blood Peripheral Anaerobic Blood Culture - Preliminary NO GROWTH IN 4 DAYS Resulted 03/15/18 14:40 Fluid Peritoneal Fluid Gram Stain - Final Resulted 03/15/18 14:40 Fluid Peritoneal Fluid Body Fluid Culture - Preliminary NO GROWTH IN 48 HOURS. Resulted Imaging Last Impressions Cyst Biopsy Asp-Paracentesis US 03/15/18 0000 Signed Impressions: CONCLUSION: Uncomplicated ultrasound-guided paracentesis. Patient received albumin per prot ocol. Head CT 03/13/1826 Signed Impressions: CONCLUSION: 1. Negative CT Head non contrast. Chest X-Ray 03/13/1826 Signed Impressions: CONCLUSION: Negative examination. Abdomen/Pelvis CT 03/13/18 Signed Impressions: CONCLUSION: 1. Large amount of ascites otherwise unremarkable CT scan of the abdomen and p endy without contrast Abdomen Ultrasound 03/13/18 Signed Impressions: CONCLUSION: 1. Moderate to large amount of ascites of approximately 4 to 5 Liters. Physical Exam HEENT: Normocephalic; atraumatic; (+) icterus CHEST: Even/unlabored CARDIAC: RRR ABDOMEN: Distended, soft, nontender, bowel sounds active EXTREMITIES:BLE edema. SKIN: (+) jaundice. ATTENDANT CAMPGROUND: Alert and oriented x 3 Assessment and Plan Plan Assessment: - End stage liver disease with portal hypertension and hepatorenal syndrome. Secondary to ETOH abuse- last ETOH was in November Referral to tertiary center has been difficult due to no insurance, pt was approved for Medicaid on March 03 and went to [place] last Tuesday. Started work up for liver transplant at [place], Dr. Rene Arias, liver transplant specialist and Dr. Santoyo, transportation sales consultant. Pt had multiple labs drawn on Tuesday, on his way home was called by [facility] and told to return for admission due to hyperkalemia. Pt was admitted from til Tuesday. Per pts mother, Spironolactone dosage was decreased. - Confusion- pt acutely disoriented- he is awake and verbal but unsure of his own name- [id number]-18 He is on Xifaxan and Lactulose Of note, reports of new antibiotic. Mother is unsure which one he is on. - Ascites- CT abdomen and pelvis (03/13) revealed large volume of ascites Paracentesis x 2 at [place]- Tuesday and Tuesday Pt on Spironolactone - Poor PO intake- pt has Dobhoff tube for feedings - Leukocytosis- chronic- previous bone marrow biopsy- followed by Dr. Hahn (03/14) Pt a little more oriented today, he can remember his own name and his mother. Per RN Dr. Brantley did not feel comfortable doing paracentesis because of recent paracentesis done on Tuesday. Per RN pt tolerated TF over night Records received from [facility] and on patients chart at nursing station (03/15) Pt more oriented today, able to identify his mother and himself. Dr. Markham discussed case with Dr. santoyo from [facility] who is reviewing his case and will notify us if transfer to [facility] is approved. Pt planned for paracentesis today. (03/16) Pt declined transfer to [facility] and [facility]. Working on contacting [facility]. Pt more oriented today. Also reports feeling somewhat better after paracentesis yesterday. 03/17/2018 currently labs show hemoglobin 8.3, WBC 29.3, PT/INR 1.6 with coagulopathy probably related to patient's end-stage liver disease. Patient remains tachycardic heart rate 118, No new bilirubin labs today on 03/16/2018 bilirubin was 7.1. Patient is status post paracentesis on 03/15/2018. Abdomen still shows mild to moderate fluid wave , no pain to light palpation. Mother and father are in the room and state patient was more alert this morning and hungry, but medications make him nauseated and decrease his appetite at times. They are hopeful for a rehabilitation stay, this is pending placement. Encouraged mother and father to stay in touch with case management for their many questions and plan of care/ process. Bryon does open his eyes and respond weakly to minimal conversation. GI will also follow on an outpatient basis and assist with monitoring his labs and his plan of care. Plan: Diet, feedings Via Dobbhoff Continue Xifaxan and Lactulose, spironolactone Anti-medics, vitamins Bowel regimen Supportive care Working with case management for rehabilitation versus patient's level of care and needs. Further recommendations based on course Pt has been seen per myself and Dr. Delgado, note is written on her behalf Lise Boland Mar 17, 2018 15:47
[2018-03-17 16:00] VITALS: BP 114/82; PULSE 117; RESP 18; TEMP 98; O2SAT 99
[2018-03-17] MEDS: cefTRIAXone INJ 1,000 MG in SODIUM CHLORIDE 0.9% INJ 100 ML IV SCH (17:17)
--- NOTE | 2018-03-17 18:04 | PD.WCN.NOT ---
Wound Consult Description: Consult for WOUND MANAGEMENT of sacrum per Dr Cordero Communicated with: Patient Karrie, toolroom attendant at bedside Recommendation: 1. Encourage patient to reposition every 2 hours for comfort and offloading of rebeca prominences. 2. Cleanse sacral/coccyx area with remedy soft cloth barrier wipes 3. Apply Calazime skin protectant paste to inner bilateral buttocks and gluteal cleft fissure BID or as needed for moisture. 4. Apply a bordered gauze dressing to right buttock Stage II after prepping periwound with skin barrier film and change when soiled or dislodged. Additional Information: Patient seen on for wound evaluation of sacrum. Patient turned himself to his right side for assessment. Bordered gauze dressing was removed to reveal a Stage II etiology of moisture, friction, and pressure measuring 1.4cm x 0.9cm x 0.2cm of moist red non granulating tissue with open jagged wound margins and macerated periwound. Patient and family members at bedside were educated on the extreme importance of repositioning to offload pressure from rebeca prominences. Patient requested a dressing be applied vs the Calazime skin protectant stating that he knows when he has to have a bm, etc. Patient is noted with 3 underpads underneath him that are not necessary for an independently repositioning patient without incontinence. Please use only one underpad for moisture if needed. Shelby Booth [facility] Mar 17, 2018 18:04
--- NOTE | 2018-03-17 18:29 | HHI.FF ---
Face to Face Verification Diagnosis: (1) End-stage liver disease Home Health Nursing Order: Wound care and dressing changes Nursing assessment with vital signs Instructions: Sacrum 1. Encourage patient to reposition every 2 hours for comfort and offloading of rebeca prominences. 2. Cleanse sacral/coccyx area with remedy soft cloth barrier wipes 3. Apply Calazime skin protectant paste to inner bilateral buttocks and gluteal cleft fissure BID or as needed for moisture. 4. Apply a bordered gauze dressing to right buttock Stage II after prepping periwound with skin barrier film and change when soiled or dislodged. left Contreras 1. Cleanse Left contreras incision/partial thickness wound with normal saline pat dry. 2. Apply single layer Xeroform to incision and partial thickness wound cover with non stick dressing and secure with rolled gauze/paper tape. I have seen patient Ihsan العلي on 03/17/18. My clinical findings support the need for the requested home health care services because: Limited ability to care for self I certify that my clinical findings support that this patient is homebound because: Unsafe to leave home unassisted Bryon Cordero MD Mar 17, 2018 18:29
[2018-03-17 20:00] VITALS: BP 120/79; PULSE 115; RESP 18; TEMP 98.6; O2SAT 100
[2018-03-18] VITALS: BP 110/72; PULSE 113; RESP 18; TEMP 98.7; O2SAT 100
[2018-03-18] MEDS: MIDODRINE 5 MG TAB PO SCH ×3 (05:38→16:37)
[2018-03-18] MEDS: RIFAXIMIN 200 MG TAB PO SCH ×3 (05:38→20:10)
[2018-03-18] MEDS: SODIUM BICARBONATE 650 MG TAB PO SCH ×3 (05:38→20:10)
[2018-03-18] MEDS: hydrOXYzine HCL 50 MG TAB PO PRN ×3 (05:39→20:10)
[2018-03-18 08:00] VITALS: BP 101/58; PULSE 108; RESP 17; TEMP 97.3; O2SAT 98
[2018-03-18] MEDS: SODIUM CHLORIDE 0.9% FLUSH 10 ML FLUSH IV FLUSH SCH ×2 (09:00→20:11)
--- NOTE | 2018-03-18 09:19 | HHI.PR ---
Subjective Remarks Patient says he is feeling all right. Denies any abdominal pain. Denies any chest pain shortness of breath. He says that Kayexalate caused nausea yesterday , however this has resolved. Objective Vital Signs Date Time Temp Pulse Resp B/P (MAP) Pulse Ox O2 Delivery O2 Flow Rate FiO2 03/18/18 00:00 98.7 113 18 110/72 (85) 100 03/17/18 20:00 98.6 115 18 120/79 (93) 100 03/17/18 16:00 98.0 117 18 114/82 (93) 99 03/17/18 12:00 98.7 118 19 114/74 (87) 100 I/O 03/17/18 03/17/18 03/17/18 03/18/18 03/18/18 03/18/18 06:59 14:59 22:59 06:59 14:59 22:59 Intake Total 1180 ml Output Total 300 ml 800 ml Balance -300 ml 380 ml Intake Oral 1180 ml Output Urine Total 300 ml 800 ml Bladder Scan Volume Amount # Bowel Movements 1 Result Diagram: 03/17/18 0717 03/17/18 0717 Objective Remarks GENERAL: he is sitting up in bed eating breakfast. He is alert and oriented 4. Exam again unchanged. SKIN: Warm and dry. HEAD: Normocephalic. EYES: No scleral icterus. No injection or drainage. NECK: Supple, trachea midline. No JVD. CARDIOVASCULAR: Regular rate and rhythm without murmurs, gallops, or rubs. RESPIRATORY: Breath sounds equal bilaterally. No accessory muscle use. GASTROINTESTINAL: Abdomen less distended today. Nontender. MUSCULOSKELETAL: No cyanosis. Trace anasarca. Left lower extremity anterior contreras abrasion. Dressed, cdi. Stage I sacral ulcer BACK: Nontender without obvious deformity. No CVA tenderness. A/P Assessment and Plan // End-stage liver disease/elevated bilirubin/hepatorenal syndrome //Ascites Patient undergoing evaluation for liver transplantation at [facility] consulted, appreciate assistance Continue home medications including rifaximin, lactulose, pentoxifylline>> we will hold the latter due to patient has been on it for 6 weeks, recommended 4 weeks = Kidney function stable. Start daily thiamine. Still significant ascites. IR did not want to do repeat paracentesis secondary to recent paracentesis on Tuesday. Continue ceftriaxone. Paracentesis ordered. = Abdominal distention improved after paracentesis. Fluid does not appear infected, however has been on antibiotics. = ID assistance appreciated. Continues on antibiotics for SBP. Peritoneal cultures negative for growth however this is done well after starting IV antibiotics. Will discuss with ID whether patient can go on by mouth antibiotics = Patient can be transitioned to Cipro at time of discharge complete treatment course. stop date 03/22. //Persistent lactic acid elevation. Secondary to liver disease. cont thiamine. //Encephalopathy. Appears resolved. Off restraints. Head CT negative for acute process Ammonia level within normal limits // Chronic leukocytosis White blood cell count 44.3, patient with chronic leukocytosis Chest x-ray negative for acute process, personally reviewed Urine negative CT of the abdomen/pelvis noted as above = chronic. //Hyperkalemia. Potassium 5.4. Kayexalate ordered. Discontinue scheduled replacement. Will decrease outpatient dose. = 03/18. s/Post Kayexalate. Off of replacement. Recheck potassium tomorrow. //Non-anion gap metabolic acidosis. -Bicarb 14.8. no gap. Continue bicarb. Discharge Planning Can follow-up with GI as outpatient Can be transitioned to Cipro to complete course on 03/22 for SBP PT recommends home health with parents versus rehab. Parents want rehab. Appreciate case management assistance. Bryon Cordero MD Mar 18, 2018 09:19
[2018-03-18] MEDS: SPIRONOLACTONE 100 MG TAB PO SCH (09:24)
[2018-03-18] MEDS: DOCUSATE SODIUM 50 MG/SENNA 8.6 MG TAB PO SCH ×2 (09:24→20:10)
[2018-03-18] MEDS: THIAMINE HCL 100 MG TAB PO SCH (09:24)
[2018-03-18] MEDS: LACTULOSE SYRUP 20 GM/30 ML CUP PO SCH ×2 (09:24→20:11)
[2018-03-18] MEDS: CHOLESTYRAMINE 4 GM PACKET PO SCH ×3 (09:24→16:36)
--- NOTE | 2018-03-18 11:05 | HHI.GIFU ---
Subjective Remarks Pt is resting in bed accompanied by family, no nausea or vomiting, no bleeding. (Bella Jones [employer]) Objective Vitals I&O Vital Signs Date Time Temp Pulse Resp B/P (MAP) Pulse Ox O2 Delivery O2 Flow Rate FiO2 03/18/18 08:00 97.3 108 17 101/58 (72) 98 03/18/18 00:00 98.7 113 18 110/72 (85) 100 03/17/18 20:00 98.6 115 18 120/79 (93) 100 03/17/18 16:00 98.0 117 18 114/82 (93) 99 03/17/18 12:00 98.7 118 19 114/74 (87) 100 I/O 03/17/18 03/17/18 03/17/18 03/18/18 03/18/18 03/18/18 07:00 15:00 23:00 07:00 15:00 23:00 Intake Total 1180 ml Output Total 300 ml 800 ml Balance -300 ml 380 ml Intake Oral 1180 ml Output Urine Total 300 ml 800 ml Bladder Scan Volume Amount # Bowel Movements 1 Laboratory Laboratory Tests Test 03/18/18 10:51 Date/Time Source Procedure Growth Status 03/13/18 01:50 Blood Peripheral Aerobic Blood Culture - Final NO GROWTH IN 5 DAYS Complete 03/13/18 01:50 Blood Peripheral Anaerobic Blood Culture - Final NO GROWTH IN 5 DAYS Complete 03/15/18 14:40 Fluid Peritoneal Fluid Gram Stain - Final Complete 03/15/18 14:40 Fluid Peritoneal Fluid Body Fluid Culture - Final NO GROWTH IN 72 HRS.--AEROBICALLY OR ... Complete Imaging Last Impressions Cyst Biopsy Asp-Paracentesis US 03/15/18 Signed Impressions: CONCLUSION: Uncomplicated ultrasound-guided paracentesis. Patient received albumin per prot ocol. Head CT 03/13/1826 Signed Impressions: CONCLUSION: 1. Negative CT Head non contrast. Chest X-Ray 03/13/1826 Signed Impressions: CONCLUSION: Negative examination. Abdomen/Pelvis CT 03/13/18 Signed Impressions: CONCLUSION: 1. Large amount of ascites otherwise unremarkable CT scan of the abdomen and p endy without contrast Abdomen Ultrasound 03/13/18 Signed Impressions: CONCLUSION: 1. Moderate to large amount of ascites of approximately 4 to 5 Liters. Physical Exam HEENT: Normocephalic; atraumatic; (+) icterus CHEST: Even/unlabored CARDIAC: RRR ABDOMEN: Distended, soft, nontender, bowel sounds active EXTREMITIES:BLE edema. SKIN: (+) jaundice. 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 Secondary to ETOH abuse- last ETOH was in November Referral to tertiary center has been difficult due to no insurance, pt was approved for Medicaid on March 03 and went to [facility] last Tuesday. Started work up for liver transplant at [facility], Dr. Rene Arias, liver transplant specialist and Dr. Santoyo, facetor. Pt had multiple labs drawn on Tuesday, on his way home was called by [facility] and told to return for admission due to hyperkalemia. Pt was admitted from til Tuesday. Per pts mother, Spironolactone dosage was decreased. - Confusion- pt acutely disoriented- he is awake and verbal but unsure of his own name- [id number] He is on Xifaxan and Lactulose Of note, reports of new antibiotic. Mother is unsure which one he is on. - Ascites- CT abdomen and pelvis (03/13) revealed large volume of ascites Paracentesis x 2 at [facility]- Tuesday and Tuesday Pt on Spironolactone - Poor PO intake- pt has Dobhoff tube for feedings - Leukocytosis- chronic- previous bone marrow biopsy- followed by Dr. Hahn (03/14) Pt a little more oriented today, he can remember his own name and his mother. Per RN Dr. Brantley did not feel comfortable doing paracentesis because of recent paracentesis done on Tuesday. Per RN pt tolerated TF over night Records received from [facility] and on patients chart at nursing station (03/15) Pt more oriented today, able to identify his mother and himself. Dr. Markham discussed case with Dr. santoyo from [facility] who is reviewing his case and will notify us if transfer to [facility] is approved. Pt planned for paracentesis today. (03/16) Pt declined transfer to [facility] and [facility]. Working on contacting [facility]. Pt more oriented today. Also reports feeling somewhat better after paracentesis yesterday. 03/17/2018 currently labs show hemoglobin 8.3, WBC 29.3, PT/INR 1.6 with coagulopathy probably related to patient's end-stage liver disease. Patient remains tachycardic heart rate 118, No new bilirubin labs today on 03/16/2018 bilirubin was 7.1. Patient is status post paracentesis on 03/15/2018. Abdomen still shows mild to moderate fluid wave , no pain to light palpation. Mother and father are in the room and state patient was more alert this morning and hungry, but medications make him nauseated and decrease his appetite at times. They are hopeful for a rehabilitation stay, this is pending placement. Encouraged mother and father to stay in touch with case management for their many questions and plan of care/ process. Bryon does open his eyes and respond weakly to minimal conversation. GI will also follow on an outpatient basis and assist with monitoring his labs and his plan of care. 03/18/18 Pt was declined by tertiary center. Pt remains critically ill but no acute change. Plan: Diet, feedings Via Dobbhoff Continue Xifaxan and Lactulose, spironolactone Anti-medics, vitamins Bowel regimen Tertiary eval order placed as an OP Recommend Detox as an OP, this was discussed with mom Supportive care Working with case management for rehabilitation Further recommendations based on course Pt has been seen per myself and Dr. Delgado, note is written on her behalf (Bella Jones) Physician Comments seen, examined agree with above (Liseth Delgado MD) Bella Jones Mar 18, 2018 11:05 Liseth Delgado MD Mar 18, 2018 20:43
[2018-03-18 11:37] LABS: BICARBONATE 18.2 MEQ/L (21.0-32.0); CREATININE 0.9 MG/DL (0.60-1.30)
[2018-03-18 12:00] VITALS: BP 113/71; PULSE 107; RESP 17; TEMP 97.4; O2SAT 100
[2018-03-18] MEDS: ONDANSETRON ODT 4 MG TAB PO PRN (15:09)
[2018-03-18 16:00] VITALS: BP 110/61; PULSE 105; RESP 17; TEMP 98; O2SAT 100
[2018-03-18] MEDS: cefTRIAXone INJ 1,000 MG in SODIUM CHLORIDE 0.9% INJ 100 ML IV SCH ×2 (16:38→17:27)
[2018-03-18 20:00] VITALS: BP 118/68; PULSE 110; RESP 17; TEMP 98.3; O2SAT 100
[2018-03-19] VITALS: BP 110/61; PULSE 100; RESP 17; TEMP 98.3; O2SAT 100
[2018-03-19] MEDS: hydrOXYzine HCL 50 MG TAB PO PRN ×4 (01:46→20:27)
[2018-03-19] MEDS: SODIUM BICARBONATE 650 MG TAB PO SCH ×3 (05:51→20:26)
[2018-03-19] MEDS: RIFAXIMIN 200 MG TAB PO SCH ×3 (05:51→20:27)
[2018-03-19] MEDS: MIDODRINE 5 MG TAB PO SCH ×3 (05:51→16:16)
[2018-03-19 07:09] LABS: BICARBONATE 17.4 MEQ/L (21.0-32.0); CALCIUM 8.1 MG/DL (8.5-10.1); CREATININE 0.86 MG/DL (0.60-1.30)
[2018-03-19 08:00] VITALS: BP 123/63; PULSE 115; RESP 17; TEMP 97.7; O2SAT 100
[2018-03-19] MEDS: LACTULOSE SYRUP 20 GM/30 ML CUP PO SCH ×2 (08:13→20:27)
[2018-03-19] MEDS: CHOLESTYRAMINE 4 GM PACKET PO SCH ×3 (08:14→16:16)
[2018-03-19] MEDS: SPIRONOLACTONE 100 MG TAB PO SCH (08:16)
[2018-03-19] MEDS: SODIUM CHLORIDE 0.9% FLUSH 10 ML FLUSH IV FLUSH SCH ×2 (08:16→20:27)
[2018-03-19] MEDS: DOCUSATE SODIUM 50 MG/SENNA 8.6 MG TAB PO SCH ×2 (08:17→20:27)
[2018-03-19] MEDS: THIAMINE HCL 100 MG TAB PO SCH (08:17)
--- NOTE | 2018-03-19 09:41 | HHI.PR ---
Subjective Remarks Patient says he is feeling well. Denies any chest pain shortness of breath. Reports abdominal pain is unchanged. He says he feels like his abdomen is a little larger, may need paracentesis in the coming days. Objective Vital Signs Date Time Temp Pulse Resp B/P (MAP) Pulse Ox O2 Delivery O2 Flow Rate FiO2 03/19/18 08:00 97.7 115 17 123/63 (83) 100 03/19/18 00:00 98.3 100 17 110/61 (77) 100 03/18/18 20:00 98.3 110 17 118/68 (85) 100 03/18/18 16:00 98.0 105 17 110/61 (77) 100 03/18/18 12:00 97.4 107 17 113/71 (85) 100 I/O 03/18/18 03/18/18 03/18/18 03/19/18 03/19/18 03/19/18 07:00 15:00 23:00 07:00 15:00 23:00 Intake Total 1000 ml 660 ml Output Total 675 ml 400 ml Balance 325 ml 260 ml Intake Oral 1000 ml 240 ml Tube Feeding 420 ml Output Urine Total 675 ml 400 ml Result Diagram: 03/17/18 0717 03/19/18 0551 Objective Remarks GENERAL: he is sitting up in bed eating breakfast. He is alert and oriented 4. Exam again unchanged. SKIN: Warm and dry. HEAD: Normocephalic. EYES: No scleral icterus. No injection or drainage. NECK: Supple, trachea midline. No JVD. CARDIOVASCULAR: Regular rate and rhythm without murmurs, gallops, or rubs. RESPIRATORY: Breath sounds equal bilaterally. No accessory muscle use. GASTROINTESTINAL: Abdomen slightly more distended than yesterday, however soft. No abdominal tenderness. No rebound or guarding. MUSCULOSKELETAL: No cyanosis. Trace anasarca. Left lower extremity anterior contreras abrasion. Dressed, cdi. Stage I sacral ulcer BACK: Nontender without obvious deformity. No CVA tenderness. A/P Assessment and Plan // End-stage liver disease/elevated bilirubin/hepatorenal syndrome //Ascites Patient undergoing evaluation for liver transplantation at [facility] consulted, appreciate assistance Continue home medications including rifaximin, lactulose, pentoxifylline>> we will hold the latter due to patient has been on it for 6 weeks, recommended 4 weeks = Kidney function stable. Start daily thiamine. Still significant ascites. IR did not want to do repeat paracentesis secondary to recent paracentesis on Tuesday. Continue ceftriaxone. Paracentesis ordered. = Abdominal distention improved after paracentesis. Fluid does not appear infected, however has been on antibiotics. = ID assistance appreciated. Continues on antibiotics for SBP. Peritoneal cultures negative for growth however this is done well after starting IV antibiotics. Will discuss with ID whether patient can go on by mouth antibiotics = Patient can be transitioned to Cipro at time of discharge complete treatment course. stop date 03/22. = 03/19. Continue antibiotics with stop date of 03/22 for possible SBP. Will add low-dose Lasix in addition to spironolactone. //Persistent lactic acid elevation. Secondary to liver disease. cont thiamine. //Encephalopathy. Appears resolved. Off restraints. Head CT negative for acute process Ammonia level within normal limits // Chronic leukocytosis White blood cell count 44.3, patient with chronic leukocytosis Chest x-ray negative for acute process, personally reviewed Urine negative CT of the abdomen/pelvis noted as above = chronic. //Hyperkalemia. Potassium 5.4. Kayexalate ordered. Discontinue scheduled replacement. Will decrease outpatient dose. = 03/18. s/Post Kayexalate. Off of replacement. Recheck potassium tomorrow. = 03/19. Resolved. //Non-anion gap metabolic acidosis. -Bicarb stable. Continue bicarb. Discharge Planning Can follow-up with GI as outpatient Can be transitioned to Cipro to complete course on 03/22 for SBP PT recommends home health with parents versus rehab. Parents want rehab. Appreciate case management assistance. Bryon Cordero MD Mar 19, 2018 09:41
[2018-03-19] MEDS ORDERED: FURO20TA PO (09:42)
[2018-03-19] MEDS ORDERED: FUROSEMIDE 20 MG TAB PO ONE (09:45)
[2018-03-19] MEDS ORDERED: ALBUMIN 25% INJ 100 ML IV ONE (09:45)
--- NOTE | 2018-03-19 11:07 | HHI.GIFU ---
Subjective Remarks Awake resting in the bed States he is hungry and that has gone after outside food Continues tube feeds for now until he reaches 750 katja More alert today and talking, continues to be severely jaundice (Lise Boland) Objective Vitals I&O Vital Signs Date Time Temp Pulse Resp B/P (MAP) Pulse Ox O2 Delivery O2 Flow Rate FiO2 03/19/18 08:00 97.7 115 17 123/63 (83) 100 03/19/18 00:00 98.3 100 17 110/61 (77) 100 03/18/18 20:00 98.3 110 17 118/68 (85) 100 03/18/18 16:00 98.0 105 17 110/61 (77) 100 03/18/18 12:00 97.4 107 17 113/71 (85) 100 I/O 03/18/18 03/18/18 03/18/18 03/19/18 03/19/18 03/19/18 07:00 15:00 23:00 07:00 15:00 23:00 Intake Total 1000 ml 660 ml Output Total 675 ml 400 ml Balance 325 ml 260 ml Intake Oral 1000 ml 240 ml Tube Feeding 420 ml Output Urine Total 675 ml 400 ml Laboratory Laboratory Tests Test 03/19/18 05:51 Blood Urea Nitrogen 32 Creatinine 0.86 Random Glucose 158 Calcium Level 8.1 Sodium Level 133 Potassium Level 5.0 Chloride Level 105 Carbon Dioxide Level 17.4 Anion Gap 11 Estimat Glomerular Filtration Rate 98 Date/Time Source Procedure Growth Status 03/13/18 01:50 Blood Peripheral Aerobic Blood Culture - Final NO GROWTH IN 5 DAYS Complete 03/13/18 01:50 Blood Peripheral Anaerobic Blood Culture - Final NO GROWTH IN 5 DAYS Complete 03/15/18 14:40 Fluid Peritoneal Fluid Gram Stain - Final Complete 03/15/18 14:40 Fluid Peritoneal Fluid Body Fluid Culture - Final NO GROWTH IN 72 HRS.--AEROBICALLY OR ... Complete Imaging Last Impressions Cyst Biopsy Asp-Paracentesis US 03/15/18 0000 Signed Impressions: CONCLUSION: Uncomplicated ultrasound-guided paracentesis. Patient received albumin per prot ocol. Head CT 03/13/1826 Signed Impressions: CONCLUSION: 1. Negative CT Head non contrast. Chest X-Ray 03/13/1826 Signed Impressions: CONCLUSION: Negative examination. Abdomen/Pelvis CT 03/13/18 0000 Signed Impressions: CONCLUSION: 1. Large amount of ascites otherwise unremarkable CT scan of the abdomen and p endy without contrast Abdomen Ultrasound 03/13/18 0000 Signed Impressions: CONCLUSION: 1. Moderate to large amount of ascites of approximately 4 to 5 Liters. Physical Exam HEENT: Normocephalic; atraumatic; (+) icterus CHEST: Even/unlabored CARDIAC: RRR ABDOMEN: Round, distended, soft, nontender, bowel sounds active EXTREMITIES: Trace BLE edema., Bilateral but noted gradual improvement SKIN: (+) jaundice. 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 Secondary to ETOH abuse- last ETOH was in November Referral to tertiary center has been difficult due to no insurance, pt was approved for Medicaid on March 03 and went to [facility] last Tuesday. Started work up for liver transplant at [facility], Dr. Rene Arias, liver transplant specialist and Dr. Santoyo, public health outreach worker. Pt had multiple labs drawn on Tuesday, on his way home was called by [facility] and told to return for admission due to hyperkalemia. Pt was admitted from til Tuesday. Per pts mother, Spironolactone dosage was decreased. - Confusion- pt acutely disoriented- he is awake and verbal but unsure of his own name- [id number] He is on Xifaxan and Lactulose Of note, reports of new antibiotic. Mother is unsure which one he is on. - Ascites- CT abdomen and pelvis (03/13) revealed large volume of ascites Paracentesis x 2 at [facility]- Tuesday and Tuesday Pt on Spironolactone - Poor PO intake- pt has Dobhoff tube for feedings - Leukocytosis- chronic- previous bone marrow biopsy- followed by Dr. Hahn (03/14) Pt a little more oriented today, he can remember his own name and his mother. Per RN Dr. Brantley did not feel comfortable doing paracentesis because of recent paracentesis done on Tuesday. Per RN pt tolerated TF over night Records received from [facility] and on patients chart at nursing station (03/15) Pt more oriented today, able to identify his mother and himself. Dr. Markham discussed case with Dr. santoyo from [facility] who is reviewing his case and will notify us if transfer to [facility] is approved. Pt planned for paracentesis today. (03/16) Pt declined transfer to [facility] and [facility]. Working on contacting [facility]. Pt more oriented today. Also reports feeling somewhat better after paracentesis yesterday. 03/17/2018 currently labs show hemoglobin 8.3, WBC 29.3, PT/INR 1.6 with coagulopathy probably related to patient's end-stage liver disease. Patient remains tachycardic heart rate 118, No new bilirubin labs today on 03/16/2018 bilirubin was 7.1. Patient is status post paracentesis on 03/15/2018. Abdomen still shows mild to moderate fluid wave , no pain to light palpation. Mother and father are in the room and state patient was more alert this morning and hungry, but medications make him nauseated and decrease his appetite at times. They are hopeful for a rehabilitation stay, this is pending placement. Encouraged mother and father to stay in touch with case management for their many questions and plan of care/ process. Bryon does open his eyes and respond weakly to minimal conversation. GI will also follow on an outpatient basis and assist with monitoring his labs and his plan of care. 03/18/18 Pt was declined by tertiary center. Pt remains critically ill but no acute change. 03/19/2018, patient is more awake today and waiting on father to get back with outside food which includes hashbrowns. Patient is hungry today. Tube feeds continue this a.m. until he reaches 750-calorie intake. Encourage patient to attempt to be up out of bed, questionable motivation. Noted above patient has been declined by tertiary center for now. Consider eval on an outpatient basis as well as follow-up for outpatient alcohol support. Patient is agreeable. Case management working towards discharge planning and possible rehab. No new labs today. Plan: Diet, feedings Via [employer], no changes for now Continue Xifaxan and Lactulose, spironolactone Anti-medics, vitamins Bowel regimen Continue to monitor his labs support patient and family through this difficult time Further recommendations based on course Pt has been seen per myself and Dr. Delgado, note is written on her behalf (Lise Boland) Physician Comments agree with above (Liseth Delgado MD) Lise Boland Mar 19, 2018 11:07 Liseth Delgado MD Mar 19, 2018 21:44
[2018-03-19 12:00] VITALS: BP 117/64; PULSE 114; RESP 17; TEMP 97.2; O2SAT 100
[2018-03-19] MEDS: ONDANSETRON ODT 4 MG TAB PO PRN ×2 (15:32→20:27)
[2018-03-19 16:00] VITALS: BP 110/63; PULSE 116; RESP 17; TEMP 98; O2SAT 100
[2018-03-19] MEDS: cefTRIAXone INJ 1,000 MG in SODIUM CHLORIDE 0.9% INJ 100 ML IV SCH (16:16)
[2018-03-19 20:00] VITALS: BP 114/65; PULSE 115; RESP 18; TEMP 98.1; O2SAT 100
[2018-03-20] VITALS: BP 114/56; PULSE 109; RESP 18; TEMP 98.9; O2SAT 100
[2018-03-20] MEDS: hydrOXYzine HCL 50 MG TAB PO PRN ×3 (02:44→16:14)
[2018-03-20 03:04] LABS: AUTOMATED NEUTROPHIL # 19.3 TH/MM3 (1.8-7.7); BASOPHIL # 0.2 TH/MM3 (0-0.2); BASOPHIL % 0.6 % (0.0-2.0); EOSINOPHIL % 3.8 % (0.0-4.0); HEMATOCRIT 24.9 % (39.0-51.0); HEMOGLOBIN 8.1 GM/DL (13.0-17.0); LYMPH % 9.9 % (9.0-44.0); LYMPHOCYTE # 2.6 TH/MM3 (1.0-4.8); MEAN CELL VOLUME 98.5 FL (80.0-100.0); MEAN CORPUSCULAR HGB CONC 32.5 % (32.0-36.0); MEAN PLATELET VOLUME 8.6 FL (7.0-11.0); MONOCYTE # 2.8 TH/MM3 (0-0.9); NEUT % 74.7 % (16.0-70.0); PLATELET COUNT 262 TH/MM3 (150-450); RED BLOOD COUNT 2.53 MIL/MM3 (4.50-5.90); RED CELL DISTRIBUTION WIDTH 16.4 % (11.6-17.2); WHITE BLOOD COUNT 25.8 TH/MM3 (4.0-11.0)
[2018-03-20 03:26] LABS: ALBUMIN 2.7 GM/DL (3.4-5.0); BICARBONATE 16.9 MEQ/L (21.0-32.0); CALCIUM 7.8 MG/DL (8.5-10.1); CREATININE 1.04 MG/DL (0.60-1.30); MAGNESIUM 2.3 MG/DL (1.5-2.5); PHOSPHORUS 3.5 MG/DL (2.5-4.9)
[2018-03-20 03:57] LABS: BANDS 8 % (0-6); LYMPHOCYTES 8 % (9-44); METAMYELOCYTES 1 % (0-1); MONOCYTES 11 % (0-8); NEUTROPHIL # MANUAL DIFF 20.1 TH/MM3 (1.8-7.7); POLYS (SEG NEUTROPHILS) 69 % (16-70); TOXIC GRANULATION 1+ (NORMAL)
[2018-03-20 03:58] LABS: DOHLE BODIES PRESENT (NONE SEEN)
[2018-03-20] MEDS: MIDODRINE 5 MG TAB PO SCH ×3 (05:57→16:08)
[2018-03-20] MEDS: SODIUM BICARBONATE 650 MG TAB PO SCH ×2 (05:57→12:04)
[2018-03-20] MEDS: RIFAXIMIN 200 MG TAB PO SCH ×2 (05:58→12:05)
[2018-03-20 08:00] VITALS: BP 116/58; PULSE 105; RESP 18; TEMP 98; O2SAT 100
[2018-03-20] MEDS: SPIRONOLACTONE 100 MG TAB PO SCH (08:10)
[2018-03-20] MEDS: LACTULOSE SYRUP 20 GM/30 ML CUP PO SCH (08:10)
[2018-03-20] MEDS: DOCUSATE SODIUM 50 MG/SENNA 8.6 MG TAB PO SCH (08:10)
[2018-03-20] MEDS: CHOLESTYRAMINE 4 GM PACKET PO SCH ×3 (08:10→16:08)
[2018-03-20] MEDS: SODIUM CHLORIDE 0.9% FLUSH 10 ML FLUSH IV FLUSH SCH (08:10)
[2018-03-20] MEDS: THIAMINE HCL 100 MG TAB PO SCH (08:10)
[2018-03-20] MEDS ORDERED: FUROSEMIDE 20 MG TAB PO SCH (09:00)
--- NOTE | 2018-03-20 09:01 | HHI.GIFU ---
Subjective Remarks Pt doing much better today, discussing breakfast options with me, awaiting breakfast from [facility], doing good with Dobb hobff feeding as well, going to rehab soon (Bella Jones) Objective Vitals I&O Vital Signs Date Time Temp Pulse Resp B/P (MAP) Pulse Ox O2 Delivery O2 Flow Rate FiO2 03/20/18 00:00 98.9 109 18 114/56 (75) 100 03/19/18 20:00 98.1 115 18 114/65 (81) 100 03/19/18 16:00 98.0 116 17 110/63 (79) 100 03/19/18 12:00 97.2 114 17 117/64 (81) 100 I/O 03/19/18 03/19/18 03/19/18 03/20/18 03/20/18 03/20/18 07:00 15:00 23:00 07:00 15:00 23:00 Intake Total 660 ml 200 ml 1200 ml 940 ml Output Total 400 ml 440 ml 600 ml Balance 260 ml 200 ml 760 ml 340 ml Intake Oral 240 ml 1200 ml 240 ml IV Total 200 ml Tube Feeding 420 ml 700 ml Output Urine Total 400 ml 440 ml 600 ml # Bowel Movements 1 1 Laboratory Laboratory Tests Test 03/20/18 02:49 White Blood Count 25.8 Red Blood Count 2.53 Hemoglobin 8.1 Hematocrit 24.9 Mean Corpuscular Volume 98.5 Mean Corpuscular Hemoglobin 32.0 Mean Corpuscular Hemoglobin Concent 32.5 Red Cell Distribution Width 16.4 Platelet Count 262 Mean Platelet Volume 8.6 Neutrophils (%) (Auto) 74.7 Lymphocytes (%) (Auto) 9.9 Monocytes (%) (Auto) 11.0 Eosinophils (%) (Auto) 3.8 Basophils (%) (Auto) 0.6 Neutrophils # (Auto) 19.3 Lymphocytes # (Auto) 2.6 Monocytes # (Auto) 2.8 Eosinophils # (Auto) 1.0 Basophils # (Auto) 0.2 CBC Comment AUTO DIFF Differential Total Cells Counted 100 Neutrophils % (Manual) 69 Band Neutrophils % 8 Lymphocytes % 8 Monocytes % 11 Eosinophils % 3 Neutrophils # (Manual) 20.1 Metamyelocytes 1 Differential Comment FINAL DIFF MANUAL Toxic Granulation 1+ Dohle Bodies PRESENT Platelet Estimate NORMAL Platelet Morphology Comment NORMAL Blood Urea Nitrogen 29 Creatinine 1.04 Random Glucose 155 Albumin 2.7 Calcium Level 7.8 Phosphorus Level 3.5 Magnesium Level 2.3 Sodium Level 134 Potassium Level 5.0 Chloride Level 106 Carbon Dioxide Level 16.9 Anion Gap 11 Estimat Glomerular Filtration Rate 79 Date/Time Source Procedure Growth Status 03/13/18 01:50 Blood Peripheral Aerobic Blood Culture - Final NO GROWTH IN 5 DAYS Complete 03/13/18 01:50 Blood Peripheral Anaerobic Blood Culture - Final NO GROWTH IN 5 DAYS Complete 03/15/18 14:40 Fluid Peritoneal Fluid Gram Stain - Final Complete 03/15/18 14:40 Fluid Peritoneal Fluid Body Fluid Culture - Final NO GROWTH IN 72 HRS.--AEROBICALLY OR ... Complete Imaging Last Impressions Cyst Biopsy Asp-Paracentesis US 03/15/18 0000 Signed Impressions: CONCLUSION: Uncomplicated ultrasound-guided paracentesis. Patient received albumin per prot ocol. Head CT 03/13/1826 Signed Impressions: CONCLUSION: 1. Negative CT Head non contrast. Chest X-Ray 03/13/1826 Signed Impressions: CONCLUSION: Negative examination. Abdomen/Pelvis CT 03/13/18 0000 Signed Impressions: CONCLUSION: 1. Large amount of ascites otherwise unremarkable CT scan of the abdomen and p endy without contrast Abdomen Ultrasound 03/13/18 0000 Signed Impressions: CONCLUSION: 1. Moderate to large amount of ascites of approximately 4 to 5 Liters. Physical Exam HEENT: Normocephalic; atraumatic; (+) icterus CHEST: Even/unlabored CARDIAC: RRR ABDOMEN: Round, distended, soft, nontender, bowel sounds active EXTREMITIES: Trace BLE edema., Bilateral but noted gradual improvement SKIN: (+) jaundice. TAVERN CAR ATTENDANT: Alert and oriented x 3 (Amawi,[employer] HEEL COVERER MACHINE OPERATOR) Assessment and Plan Plan Assessment: - End stage liver disease with portal hypertension and hepatorenal syndrome. Secondary to ETOH abuse- last ETOH was in November Referral to tertiary center has been difficult due to no insurance, pt was approved for Medicaid on March 03 and went to [place] last Tuesday. Started work up for liver transplant at [place], Dr. Rene Arias, liver transplant specialist and Dr. Santoyo, line patrolman. Pt had multiple labs drawn on Tuesday, on his way home was called by [facility] and told to return for admission due to hyperkalemia. Pt was admitted from Tuesday. Per pts mother, Spironolactone dosage was decreased. - Confusion- pt acutely disoriented- he is awake and verbal but unsure of his own name- [id number] He is on Xifaxan and Lactulose Of note, reports of new antibiotic. Mother is unsure which one he is on. - Ascites- CT abdomen and pelvis (03/13) revealed large volume of ascites Paracentesis x 2 at [facility]- Tuesday and Tuesday Pt on Spironolactone - Poor PO intake- pt has Dobhoff tube for feedings - Leukocytosis- chronic- previous bone marrow biopsy- followed by Dr. Hahn (03/14) Pt a little more oriented today, he can remember his own name and his mother. Per RN Dr. Brantley did not feel comfortable doing paracentesis because of recent paracentesis done on Tuesday. Per RN pt tolerated TF over night Records received from [facility] and on patients chart at nursing station (03/15) Pt more oriented today, able to identify his mother and himself. Dr. Markham discussed case with Dr. santoyo from [facility] who is reviewing his case and will notify us if transfer to [facility] is approved. Pt planned for paracentesis today. (03/16) Pt declined transfer to [facility] and [facility]. Working on contacting [facility]. Pt more oriented today. Also reports feeling somewhat better after paracentesis yesterday. 03/17/2018 currently labs show hemoglobin 8.3, WBC 29.3, PT/INR 1.6 with coagulopathy probably related to patient's end-stage liver disease. Patient remains tachycardic heart rate 118, No new bilirubin labs today on 03/16/2018 bilirubin was 7.1. Patient is status post paracentesis on 03/15/2018. Abdomen still shows mild to moderate fluid wave , no pain to light palpation. Mother and father are in the room and state patient was more alert this morning and hungry, but medications make him nauseated and decrease his appetite at times. They are hopeful for a rehabilitation stay, this is pending placement. Encouraged mother and father to stay in touch with case management for their many questions and plan of care/ process. Bryon does open his eyes and respond weakly to minimal conversation. GI will also follow on an outpatient basis and assist with monitoring his labs and his plan of care. 03/18/18 Pt was declined by tertiary center. Pt remains critically ill but no acute change. 03/19/2018, patient is more awake today and waiting on father to get back with outside food which includes hashbrowns. Patient is hungry today. Tube feeds continue this a.m. until he reaches 750-calorie intake. Encourage patient to attempt to be up out of bed, questionable motivation. Noted above patient has been declined by tertiary center for now. Consider eval on an outpatient basis as well as follow-up for outpatient alcohol support. Patient is agreeable. Case management working towards discharge planning and possible rehab. No new labs today. 03/20/18 pt is clinically stable, waiting on rehab placement, no acute changes, tolerating diet ok Plan: Diet, feedings Via Dobbhoff, no changes for now Continue Xifaxan and Lactulose, spironolactone Anti-medics, vitamins Bowel regimen Continue to monitor his labs Consider paracentesis prior to dc to rehab Further recommendations based on course Pt has been seen per myself and Dr. Delgado, note is written on her behalf (Bella Jones) Bella Jones Mar 20, 2018 09:00 Liseth Delgado MD Mar 20, 2018 20:50
--- NOTE | 2018-03-20 09:46 | HHI.PR ---
Subjective Remarks Patient says he is feeling all right. Denies any nausea, vomiting, chest pain, shortness of breath. Reports abdominal discomfort stable from previous. Objective Vital Signs Date Time Temp Pulse Resp B/P (MAP) Pulse Ox O2 Delivery O2 Flow Rate FiO2 03/20/18 00:00 98.9 109 18 114/56 (75) 100 03/19/18 20:00 98.1 115 18 114/65 (81) 100 03/19/18 16:00 98.0 116 17 110/63 (79) 100 03/19/18 12:00 97.2 114 17 117/64 (81) 100 I/O 03/19/18 03/19/18 03/19/18 03/20/18 03/20/18 03/20/18 07:00 15:00 23:00 07:00 15:00 23:00 Intake Total 660 ml 200 ml 1200 ml 940 ml Output Total 400 ml 440 ml 600 ml Balance 260 ml 200 ml 760 ml 340 ml Intake Oral 240 ml 1200 ml 240 ml IV Total 200 ml Tube Feeding 420 ml 700 ml Output Urine Total 400 ml 440 ml 600 ml # Bowel Movements 1 1 Result Diagram: 03/20/18 0249 03/20/18 0249 Objective Remarks GENERAL: he is sitting up in bed eating breakfast. He is alert and oriented 4. Exam unchanged. SKIN: Warm and dry. HEAD: Normocephalic. EYES: No scleral icterus. No injection or drainage. NECK: Supple, trachea midline. No JVD. CARDIOVASCULAR: Regular rate and rhythm without murmurs, gallops, or rubs. RESPIRATORY: Breath sounds equal bilaterally. No accessory muscle use. GASTROINTESTINAL: Abdomen slightly more distended than yesterday, however soft. No abdominal tenderness. No rebound or guarding. MUSCULOSKELETAL: No cyanosis. Trace anasarca. Left lower extremity anterior contreras abrasion. Dressed, cdi. BACK: Nontender without obvious deformity. No CVA tenderness. A/P Assessment and Plan // End-stage liver disease/elevated bilirubin/hepatorenal syndrome //Ascites Patient undergoing evaluation for liver transplantation at [facility] consulted, appreciate assistance Continue home medications including rifaximin, lactulose, pentoxifylline>> we will hold the latter due to patient has been on it for 6 weeks, recommended 4 weeks = Kidney function stable. Start daily thiamine. Still significant ascites. IR did not want to do repeat paracentesis secondary to recent paracentesis on Tuesday. Continue ceftriaxone. Paracentesis ordered. = Abdominal distention improved after paracentesis. Fluid does not appear infected, however has been on antibiotics. = ID assistance appreciated. Continues on antibiotics for SBP. Peritoneal cultures negative for growth however this is done well after starting IV antibiotics. Will discuss with ID whether patient can go on by mouth antibiotics = Patient can be transitioned to Cipro at time of discharge complete treatment course. stop date 03/22. = 03/19. Continue antibiotics with stop date of 03/22 for possible SBP. Will add low-dose Lasix in addition to spironolactone. = 03/20 continue low-dose Lasix, ceftriaxone was stopped date of 03/22. If discharged to rehab can go on Cipro to complete 03/22. //Persistent lactic acid elevation. Secondary to liver disease. cont thiamine. //Encephalopathy. Appears resolved. Off restraints. Head CT negative for acute process Ammonia level within normal limits = Continue lactulose // Chronic leukocytosis White blood cell count 44.3, patient with chronic leukocytosis Chest x-ray negative for acute process, personally reviewed Urine negative CT of the abdomen/pelvis noted as above = chronic. //Hyperkalemia. Potassium 5.4. Kayexalate ordered. Discontinue scheduled replacement. Will decrease outpatient dose. = 03/18. s/Post Kayexalate. Off of replacement. Recheck potassium tomorrow. = 03/19. Resolved. //Non-anion gap metabolic acidosis. -Bicarb stable. Continue bicarb. Discharge Planning Can follow-up with GI as outpatient Can be transitioned to Cipro to complete course on 03/22 for SBP PT recommends home health with parents versus rehab. Parents want rehab. Appreciate case management assistance. Bryon Cordero MD Mar 20, 2018 09:46
[2018-03-20] MEDS: ONDANSETRON ODT 4 MG TAB PO PRN (10:18)
[2018-03-20 12:00] VITALS: BP 115/66; PULSE 107; RESP 18; TEMP 98; O2SAT 100
[2018-03-20 16:00] VITALS: BP 109/57; PULSE 101; RESP 17; TEMP 97.8; O2SAT 100
[2018-03-20] MEDS: cefTRIAXone INJ 1,000 MG in SODIUM CHLORIDE 0.9% INJ 100 ML IV SCH (16:09)
--- NOTE | 2018-03-20 16:13 | HHI.DS ---
Discharge Summary Admission Date Mar 13, 2018 at 02:14 Discharge Date: Mar 20, 2018 Admitting Diagnosis AMS, leukocytosis, dehydration (1) End-stage liver disease ICD Code: K72.90 - Hepatic failure, unspecified without coma Status: Chronic (2) Cirrhosis with alcoholism ICD Code: K70.30 - Alcoholic cirrhosis of liver without ascites Status: Chronic (3) End stage liver disease ICD Code: K72.90 - Hepatic failure, unspecified without coma Status: Acute Procedures Paracentesis. Brief History - From Admission 38-year-old male with past medical history significant for end-stage liver disease secondary to alcohol abuse, hepatorenal syndrome and chronic leukocytosis was brought to the emergency department for the evaluation of altered mental status. The patient is agitated and disoriented during her interview. HPI obtained from emergency department documentation. The patient' s family reported that the patient has been gradually more confused and disoriented. He suffered a fall on March 11 and was evaluated in the emergency department. The patient was recently hospitalized for hyperkalemia. His last paracentesis was . He routinely undergoes paracentesis approximately every 7-10 days. He has a Dobbhoff in place and undergoes tube feeding at night for nutritional supplementation. He is currently being evaluated by the [facility] for liver transplantation. CBC/BMP: 03/20/18 0249 03/20/18 0249 Significant Findings Laboratory Tests Test 03/18/18 10:51 03/19/18 05:51 03/20/18 02:49 Blood Urea Nitrogen 28 MG/DL (7-18) 32 MG/DL (7-18) 29 MG/DL (7-18) Random Glucose 133 MG/DL (74-106) 158 MG/DL (74-106) 155 MG/DL (74-106) Calcium Level 8.0 MG/DL (8.5-10.1) 8.1 MG/DL (8.5-10.1) 7.8 MG/DL (8.5-10.1) Sodium Level 133 MEQ/L (136-145) 133 MEQ/L (136-145) 134 MEQ/L (136-145) Potassium Level 5.3 MEQ/L (3.5-5.1) Carbon Dioxide Level 18.2 MEQ/L (21.0-32.0) 17.4 MEQ/L (21.0-32.0) 16.9 MEQ/L (21.0-32.0) White Blood Count 25.8 TH/MM3 (4.0-11.0) Red Blood Count 2.53 MIL/MM3 (4.50-5.90) Hemoglobin 8.1 GM/DL (13.0-17.0) Hematocrit 24.9 % (39.0-51.0) Neutrophils (%) (Auto) 74.7 % (16.0-70.0) Monocytes (%) (Auto) 11.0 % (0.0-8.0) Neutrophils # (Auto) 19.3 TH/MM3 (1.8-7.7) Monocytes # (Auto) 2.8 TH/MM3 (0-0.9) Eosinophils # (Auto) 1.0 TH/MM3 (0-0.4) Band Neutrophils % 8 % (0-6) Lymphocytes % 8 % (9-44) Monocytes % 11 % (0-8) Neutrophils # (Manual) 20.1 TH/MM3 (1.8-7.7) Toxic Granulation 1+ (NORMAL) Dohle Bodies PRESENT (NONE SEEN) Albumin 2.7 GM/DL (3.4-5.0) Estimat Glomerular Filtration Rate 79 ML/MIN (>89) Imaging Last Impressions Cyst Biopsy Asp-Paracentesis US 03/15/18 Signed Impressions: CONCLUSION: Uncomplicated ultrasound-guided paracentesis. Patient received albumin per prot ocol. Head CT 03/13/1826 Signed Impressions: CONCLUSION: 1. Negative CT Head non contrast. Chest X-Ray 03/13/1826 Signed Impressions: CONCLUSION: Negative examination. Abdomen/Pelvis CT 03/13/18 Signed Impressions: CONCLUSION: 1. Large amount of ascites otherwise unremarkable CT scan of the abdomen and p endy without contrast Abdomen Ultrasound 03/13/18 Signed Impressions: CONCLUSION: 1. Moderate to large amount of ascites of approximately 4 to 5 Liters. Hospital Course Patient resented with altered mental status. Ammonia within normal limits. White blood cell elevated in the 40s. Patient was started on broad-spectrum antibiotics for suspected SBP, however paracentesis cannot be done until hospital day 3. Moderately elevated white blood cells on paracentesis, however paracentesis done after being on antibiotics for several days. Infectious disease recommends ciprofloxacin to complete treatment course for suspected SBP. Patient will continue on lactulose and rifaximin. Low-dose Lasix was added to help prevent ascites. Patient will need a follow-up with gastroenterology as outpatient. For problem based summary from most recent progress note, please see below. // End-stage liver disease/elevated bilirubin/hepatorenal syndrome //Ascites Patient undergoing evaluation for liver transplantation at [facility] consulted, appreciate assistance Continue home medications including rifaximin, lactulose, pentoxifylline>> we will hold the latter due to patient has been on it for 6 weeks, recommended 4 weeks = Kidney function stable. Start daily thiamine. Still significant ascites. IR did not want to do repeat paracentesis secondary to recent paracentesis on Tuesday. Continue ceftriaxone. Paracentesis ordered. = Abdominal distention improved after paracentesis. Fluid does not appear infected, however has been on antibiotics. = ID assistance appreciated. Continues on antibiotics for SBP. Peritoneal cultures negative for growth however this is done well after starting IV antibiotics. Will discuss with ID whether patient can go on by mouth antibiotics = Patient can be transitioned to Cipro at time of discharge complete treatment course. stop date 03/22. = 03/19. Continue antibiotics with stop date of 03/22 for possible SBP. Will add low-dose Lasix in addition to spironolactone. = 03/20 continue low-dose Lasix, ceftriaxone was stopped date of 03/22. If discharged to rehab can go on Cipro to complete 03/22. //Persistent lactic acid elevation. Secondary to liver disease. cont thiamine. //Encephalopathy. Appears resolved. Off restraints. Head CT negative for acute process Ammonia level within normal limits = Continue lactulose // Chronic leukocytosis White blood cell count 44.3, patient with chronic leukocytosis Chest x-ray negative for acute process, personally reviewed Urine negative CT of the abdomen/pelvis noted as above = chronic. //Hyperkalemia. Potassium 5.4. Kayexalate ordered. Discontinue scheduled replacement. Will decrease outpatient dose. = 03/18. s/Post Kayexalate. Off of replacement. Recheck potassium tomorrow. = 03/19. Resolved. //Non-anion gap metabolic acidosis. -Bicarb stable. Continue bicarb. Discharge Planning Can follow-up with GI as outpatient [facility]22 for SBP PT recommends home health with parents versus rehab. Parents want rehab. Appreciate case management assistance. Pt Condition on Discharge: Good Discharge Disposition: Discharge to SNF Discharge Time: > 30 minutes Discharge Instructions DIET: Follow Instructions for: As Tolerated, No Restrictions, On Tube Feeding Additional Diet Instructions: Tube feeding at night. Please see orders. Activities you can perform: Weight Bearing as Brandon Other Activity Instructions: Up with supervision Follow up Referrals: Gastroenterology - 1 Week with Tamia Markham MD PCP Follow-up - 1 Week with Gabriel Gil DO New Medications: Ciprofloxacin (Ciprofloxacin) 500 Mg Tab 500 MG PO BID for Infection for 5 Days, #10 TAB 0 Refills Furosemide (Furosemide) 20 Mg Tab 20 MG PO DAILY for ascites for 30 Days, #30 TAB Changed Medications: Potassium Chloride ER (Potassium Chloride ER) 10 Meq Cap 10 MEQ PO DAILY NEB for Nutritional Supplement for 30 Days, CAP 3 Refills ( Changed from: 20 MEQ; BID; Removed Quantity) Continued Medications: Cholecalciferol (Gnp Vitamin D3 Extra Stre) 1,000 Unit Tab 1000 UNITS PO DAILY for Alcohol Detox, #90 TAB 3 Refills Cholestyramine (Cholestyramine) 4 Gm/Pkt Powd 4 GM PO TIDAC for Infection, #270 GM 3 Refills 1 packet contains 4 grams of cholestyramine. Cyanocobalamin (Vitamin B12) 100 Mcg Tab 100 MCG PO DAILY for Immunosuppression, #90 TAB 3 Refills Folic Acid (Folic Acid) 1 Mg Tablet 1 MG PO DAILY for Nutritional Supplement, #30 TAB 0 Refills Hydroxyzine HCl (Hydroxyzine HCl) 50 Mg Tab 50 MG PO Q6H PRN for itching, #120 TAB Lactulose Liq (Lactulose Liq) 10 Gm/15 Ml Soln 40 ML PO BID for ammonia mgmt for 30 Days, #180 ML 0 Refills Midodrine (Midodrine) 5 Mg Tab 2.5 MG PO TID@07,12,17 for Blood Pressure Management, #270 TAB 3 Refills Oxycodone (Oxycodone) 5 Mg Cap 5 MG PO Q4H PRN for PAIN for 30 Days, #180 CAP 0 Refills Pantoprazole (Pantoprazole) 40 Mg Tab 40 MG PO DAILY for Prevent Stress Ulcers, #90 TAB 3 Refills Prochlorperazine Maleate (Prochlorperazine Maleate) 10 Mg Tab 10 MG PO Q4H PRN for NAUSEA OR VOMITING for 3 Days, #18 TAB 0 Refills Rifaximin (Xifaxan) 200 Mg Tab 400 MG PO Q8HR for Infection, #270 TAB 3 Refills Sennosides (Senna-Lax) 8.6 Mg Tab 17.2 MG PO Q12H PRN for Moderate constipation for 30 Days, #120 TAB Sodium Bicarbonate (Sodium Bicarbonate) 650 Mg Tab 650 MG PO Q8HR for Nutritional Supplement, #90 TAB 0 Refills Spironolactone (Spironolactone) 100 Mg Tab 100 MG PO DAILY, #30 TAB 0 Refills Thiamine HCl (Gnp Vitamin B-1) 100 Mg Tab 100 MG PO DAILY for Alcohol Detox, #90 TAB 3 Refills Discontinued Medications: Amoxicillin-Clavulanate (Augmentin) 875-125 Mg Tab 1 TAB PO BID for Infection, #10 TAB 0 Refills Pentoxifylline ER (Pentoxifylline ER) 400 Mg Tab 400 MG PO Q8H for Infection, #270 TAB 3 Refills Bryon Cordero MD Mar 20, 2018 16:13
[2018-03-20] MEDS ORDERED: OXYC1CAP PO (17:44)
== END 2018-03-20 20:30 | DRG 432 ==
LOC: NEPC 23:58 → NEDA 03-13 02:14 → N07B 03-13 04:20
PROVIDERS: ADMIT Internal Medicine; ATTEND Internal Medicine
PROC: 0W9G3ZX Drainage of Peritoneal Cavity, Percutaneous Approach, Diagnostic (ICD-10-PCS; principal; 2018-03-15)
DX: K70.40 Alcoholic hepatic failure without coma (principal); K65.2 Spontaneous bacterial peritonitis; K76.7 Hepatorenal syndrome; Z76.82 Awaiting organ transplant status; K76.6 Portal hypertension; D68.4 Acquired coagulation factor deficiency; E87.2 Acidosis; E87.5 Hyperkalemia; D72.829 Elevated white blood cell count, unspecified; K70.31 Alcoholic cirrhosis of liver with ascites; E86.0 Dehydration; N28.9 Disorder of kidney and ureter, unspecified; R00.0 Tachycardia, unspecified
CPT/HCPCS: 12005; 49083; 70450; 71045; 72125; 74176; 76705; 80048; 80053; 80069; 80076; 80307; 82042; 82140; 83605; 83690; 83735; 84443; 85007; 85025; 85027; 85610; 85652; 85730; 86140; 87040; 87070; 87205; 89051; 93005; 96361; 96372; 96374; 99291; C1729; J0696; J1630; J2060; J2270; J2543; J3370; J7030; J7050; P9047